=== PATIENT | female | born 1985 | race Caucasian/White ===

== ENCOUNTER 2016-08-21 21:10 | Emergency (ER) | payer OTHER ==
[2016-08-21] MEDS ORDERED: Nitrostat 0.4 MG (ED) SL ONE ×2 (21:35→21:47)
--- NOTE | 2016-08-21 21:44 | ERPHSYRPT ---
- History of Present Illness Time Seen by Provider: 08/21/16 21:35 Historian: patient Exam Limitations: no limitations Patient Subjective Stated Complaint: per pt "i started having cp about a hour ago. it is in the back of my neck and left shoulder. i am wearing a heart monitor for a-fib issues" Triage Nursing Assessment: aox3, breathing easy unlabored, skin pink warm dry, steady gait from cot to bed Physician History: The patient is a 31-year-old female brought in by ambulance from her home town complaining of a sudden onset of chest pain with heart palpitations and rapid heartbeat and with the chest pain radiating to her back left neck and left shoulder. She was short of breath. She became nauseated but did not vomit. She also became sweaty. 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 She is scheduled for a heart procedure tomorrow. EMS gave her 4 baby aspirins. Her chest pain is diminishing. She smokes. Timing/Duration: hour(s) (2) Activities at Onset: rest Quality: sharpness, other (fluttering) Location: substernal Chest Pain Radiation: jaw, neck, back Severity of Pain-Max: moderate Severity of Pain-Current: mild Associated Symptoms: nausea, shortness of breath, diaphoresis Prior Chest Pain/Cardiac Workup: cardiac cath Nitro Today/Relief: no nitro taken today Aspirin Treatment Today: 81 mg x 4, provided by EMS Allergies/Adverse Reactions: hydromorphone HCl [From Dilaudid] Allergy (Severe, Verified 08/21/16 21:24) azithromycin [From Zithromax] Allergy (Intermediate, Verified 08/21/16 21:24) erythromycin base [Erythromycin Base] Allergy (Mild, Verified 08/21/16 21:24) morphine Adverse Reaction (Verified 08/21/16 21:24) Home Medications: No Reportable Medications [No Reported Medications] 08/21/16 [History] Hx Tetanus, Diphtheria Vaccination/Date Given: Yes Hx Influenza Vaccination/Date Given: Yes Hx Pneumococcal Vaccination/Date Given: No - Review of Systems Constitutional: No Fever, No Chills Eyes: No Symptoms Ears, Nose, & Throat: No Symptoms Respiratory: Dyspnea, No Cough Cardiac: Chest Pain Abdominal/Gastrointestinal: No Abdominal Pain, No Nausea, No Vomiting, No Diarrhea Genitourinary Symptoms: No Dysuria Musculoskeletal: No Back Pain, No Neck Pain Skin: No Rash Neurological: No Dizziness, No Focal Weakness, No Sensory Changes Psychological: No Symptoms Endocrine: No Symptoms Hematologic/Lymphatic: No Symptoms Immunological/Allergic: No Symptoms All Other Systems: Reviewed and Negative - Past Medical History Pertinent Past Medical History: Yes Neurological History: Migraines ENT History: No Pertinent History Cardiac History: Other Respiratory History: Bronchitis Endocrine Medical History: No Pertinent History Musculoskeletal History: No Pertinent History GI Medical History: No Pertinent History History: Other Psycho-Social History: Anxiety, Depression, Panic Disorder Female Reproductive Disorders: Menstrual Problems Other Medical History: kidney stones; a-fib - Past Surgical History Past Surgical History: Yes Neuro Surgical History: No Pertinent History Cardiac: No Pertinent History Respiratory: No Pertinent History Gastrointestinal: Appendectomy Genitourinary: No Pertinent History Musculoskeletal: No Pertinent History Female Surgical History: Section, Tubal Ligation, Other Other Surgical History: D&C, states ultrasound and stress showed irreg. heartbeat and chest pain in past few months, hydrant setter unable to find irregular heartbeat. tubal 12/03/15 - Social History Smoking Status: Current every day smoker How long have you smoked: 12 Exposure to second hand smoke: Yes Drug Use: none Patient Lives Alone: No - Female History Hx Last Menstrual Period: 07/27/16 Hx Now: Yes - Nursing Vital Signs Temperature: 98.7 F Temperature Source: Oral Pulse Rate: 76 Respiratory Rate: 14 Pain Intensity: 7 - Physical Exam General Appearance: no apparent distress, alert Eye Exam: PERRL/EOMI, eyes nml inspection Ears, Nose, Throat Exam: normal ENT inspection, moist mucous membranes Neck Exam: normal inspection, non-tender, supple, full range of motion Respiratory Exam: normal breath sounds, lungs clear, No respiratory distress Cardiovascular Exam: regular rate/rhythm, normal heart sounds Gastrointestinal/Abdomen Exam: soft, No tenderness, No mass Pelvic Exam: not done Rectal Exam: not done Back Exam: normal inspection, No CVA tenderness, No vertebral tenderness Extremity Exam: normal inspection, normal range of motion Neurologic Exam: alert, oriented x 3, cooperative, normal mood/affect, sensation nml, No motor deficits Skin Exam: normal color, warm, dry SpO2 Interpretation: normal SpO2: 98 Oxygen Delivery: Room Air Ordered Tests: Active Orders 24 hr Category Date Time Status Furniture Salesperson STAT Care 08/21/16 21:35 Active EKG-ER Only STAT Care 08/21/16 21:35 Active IV Insertion STAT Care 08/21/16 21:35 Active Oxygen-ED Only NASAL CANNULA 2 lpm Care 08/21/16 21:35 Active Pulse Oximetry (ED) STAT Care 08/21/16 21:35 Active CHEST 2 VIEWS (PA AND LAT) Stat Exams 08/21/16 21:36 Taken CBC W DIFF Stat Lab 08/21/16 22:15 Completed CMP Stat Lab 08/21/16 22:15 Completed TROPONIN Q3H Lab 08/21/16 22:36 Completed TROPONIN Q3H Lab 08/22/16 00:45 Ordered TROPONIN Q3H Lab 08/22/16 03:45 Ordered TROPONIN Q3H Lab 08/22/16 06:45 Ordered TROPONIN Q3H Lab 08/22/16 09:45 Ordered Medication Summary Discontinued Medications Generic Name Dose Route Start Last Admin Trade Name Freq PRN Reason Stop Dose Admin Nitroglycerin 0.4 mg 08/21/16 21:35 08/21/16 21:49 Nitrostat 0.4 Mg (Ed) SL 08/21/16 21:36 0.4 mg STAT ONE Administration Nitroglycerin Confirm 08/21/16 21:47 Nitrostat 0.4 Mg (Ed) Administered 08/21/16 21:48 Dose 0.4 mg SL .STK-MED ONE Ondansetron HCl Confirm 08/21/16 22:15 Zofran 4 Mg/2 Ml Vial Administered 08/21/16 22:16 Dose 4 mg .ROUTE .STK-MED ONE Ondansetron HCl 4 mg 08/21/16 22:30 08/21/16 22:38 Zofran 4 Mg/2 Ml Vial IV 08/21/16 22:31 4 mg STAT ONE Administration Lab/Rad Data: Laboratory Result Diagrams 08/21/16 22:15 08/21/16 22:15 Laboratory Results 08/21/16 08/21/16 08/21/16 Range/Units 22:36 22:15 22:15 WBC 8.2 (4.0-10.5) K/mm3 RBC 4.48 (4.1-5.4) M/mm3 Hgb 11.9 L (12.0-16.0) gm/dl Hct 38.4 (35-47) % MCV 85.7 (78-100) fl MCH 26.5 (26-32) pg MCHC 31.0 L (32-36) g/dl RDW 15.1 H (11.5-14.0) % Plt Count 261 (150-450) K/mm3 MPV 10.0 H (6-9.5) fl Gran % 54.8 (36.0-66.0) % Lymphocytes % 38.4 (24.0-44.0) % Monocytes % 5.4 (0.0-12.0) % Eosinophils % 1.0 (0.00-5.0) % Basophils % 0.4 (0.0-0.4) % Basophils # 0.03 (0-0.4) Sodium 144 (136-145) mEq/L Potassium 3.8 (3.5-5.1) mEq/L Chloride 109 H (98-107) mEq/L Carbon Dioxide 23.5 (21-32) mEq/L Anion Gap 15.2 H (5-15) MEQ/L BUN 10 (9-20) mg/dL Creatinine 0.72 (0.55-1.30) mg/dl Estimated GFR > 60 ML/MIN Glucose 97 (70-110) MG/DL Calcium 8.5 (8.5-10.1) mg/dL Total Bilirubin 0.2 (0.2-1.0) mg/dL AST 17 (15-37) U/L ALT 26 (12-78) U/L Alkaline Phosphatase 70 (46-116) U/L Troponin I < 0.017 (0.000-0.056) ng/ml Serum Total Protein 7.2 (6.4-8.2) gm/dL Albumin 3.5 (3.4-5.0) g/dL - Progress Air Movement: good Blood Culture(s) Obtained: No Antibiotics given: No Discussed with : Other (Dr Nix accepts pt at [facility]) Counseled pt/family regarding: lab results, diagnosis - Departure Time of Disposition: 23:50 Departure Disposition: Transfer (Transfer to [facility] per DR Nix) Clinical Impression: Chest pain Condition: Stable Critical Care Time: No
[2016-08-21] MEDS ORDERED: Zofran 4 MG/2 ML VIAL ONE (22:15)
[2016-08-21 22:19] LABS: BASOPHIL % 0.4 % (0.0-0.4); Granulocytes % 54.8 % (36.0-66.0); Lymphocytes % 38.4 % (24.0-44.0); Mean Cell Volume 85.7 fl (78-100); Monocytes % 5.4 % (0.0-12.0); Platelet Count 261 K/mm3 (150-450); Red Blood Count 4.48 M/mm3 (4.1-5.4); Red Cell Distribution Width 15.1 % (11.5-14.0); White Blood Count 8.2 K/mm3 (4.0-10.5)
[2016-08-21] MEDS ORDERED: Zofran 4 MG/2 ML VIAL IV ONE (22:30)
[2016-08-21 22:41] LABS: ALBUMIN 3.5 g/dL (3.4-5.0); ALKALINE PHOSPHATASE 70 U/L (46-116); ANION GAP 15.2 MEQ/L (5-15); BILIRUBIN,TOTAL 0.2 mg/dL (0.2-1.0); BLOOD UREA NITROGEN 10 mg/dL (9-20); CHLORIDE 109 mEq/L (98-107); Carbon Dioxide 23.5 mEq/L (21-32); Glucose 97 MG/DL (70-110); Potassium 3.8 mEq/L (3.5-5.1); SGOT/AST 17 U/L (15-37); SGPT/ALT 26 U/L (12-78); SODIUM 144 mEq/L (136-145); Total Protein 7.2 gm/dL (6.4-8.2)
[2016-08-21 22:44] LABS: Mean Corpuscular Hemoglobin 26.5 pg (26-32)
[2016-08-22 00:33] VITALS: BP 129/77; PULSE 80; O2SAT 99
--- NOTE | 2016-08-22 08:40 | XRAY ---
Indication: Left-sided chest pain. Comparison: August 13, 2015. PA/lateral chest again demonstrates normal heart, lungs, and bony thorax with now electronic device overlying the cardiac silhouette.
== END 2016-08-22 00:48 | disposition left against medical advice (07) ==
LOC: ED 21:10
DX: R07.89 Other chest pain (principal); R00.2 Palpitations; R00.0 Tachycardia, unspecified; R06.02 Shortness of breath; R06.00 Dyspnea, unspecified
CPT/HCPCS: 36000; 36415; 71020; 80053; 84484; 85025; 93005; 93041; 96374; 99285; J2405; A9270-GY

== ENCOUNTER 2016-11-18 21:24 | Emergency (ER) | payer OTHER, SELFPAY ==
--- NOTE | 2016-11-18 22:15 | ERPHSYRPT ---
- History of Present Illness Time Seen by Provider: 11/18/16 22:07 Historian: patient Physician History: The patient is a 31-year-old female with a friend complaining of increasing right flank and right abdominal pain for 2 days. She has a history of kidney stones. She thinks this is another kidney stone. The pain has moved from the upper right flank down towards the lower abdomen over the past 2 days. She denies vomiting but she has nausea. Her past medical history is significant for kidney stones, appendectomy, and PID. Timing/Duration: day(s) (2) Activities at Onset: none Quality: sharpness, stabbing Abdominal Pain Onset Location: flank (right flank) Pain Radiation: RLQ, groin Severity of Pain-Max: severe Severity of Pain-Current: severe Modifying Factors: Improves With: nothing Associated Symptoms: nausea Previous symptoms: same symptoms as today Allergies/Adverse Reactions: hydromorphone HCl [From Dilaudid] Allergy (Severe, Verified 08/21/16 21:24) azithromycin [From Zithromax] Allergy (Intermediate, Verified 08/21/16 21:24) erythromycin base [Erythromycin Base] Allergy (Mild, Verified 08/21/16 21:24) morphine Adverse Reaction (Verified 08/21/16 21:24) Home Medications: No Reportable Medications [No Reported Medications] 08/21/16 [History] Hx Tetanus, Diphtheria Vaccination/Date Given: Yes Hx Influenza Vaccination/Date Given: Yes Hx Pneumococcal Vaccination/Date Given: No - Review of Systems Constitutional: No Fever, No Chills Eyes: No Symptoms Ears, Nose, & Throat: No Symptoms Respiratory: No Cough, No Dyspnea Cardiac: No Chest Pain, No Edema, No Syncope Abdominal/Gastrointestinal: Abdominal Pain, Nausea, No Vomiting, No Diarrhea Genitourinary Symptoms: No Dysuria Musculoskeletal: No Back Pain, No Neck Pain Skin: No Rash Neurological: No Dizziness, No Focal Weakness, No Sensory Changes Psychological: No Symptoms Endocrine: No Symptoms Hematologic/Lymphatic: No Symptoms Immunological/Allergic: No Symptoms All Other Systems: Reviewed and Negative - Past Medical History Pertinent Past Medical History: Yes Neurological History: Migraines ENT History: No Pertinent History Cardiac History: Other Respiratory History: Bronchitis Endocrine Medical History: No Pertinent History Musculoskeletal History: No Pertinent History GI Medical History: No Pertinent History History: Other Psycho-Social History: Anxiety, Depression, Panic Disorder Female Reproductive Disorders: Menstrual Problems Other Medical History: kidney stones; a-fib - Past Surgical History Past Surgical History: Yes Neuro Surgical History: No Pertinent History Cardiac: No Pertinent History Respiratory: No Pertinent History Gastrointestinal: Appendectomy Genitourinary: No Pertinent History Musculoskeletal: No Pertinent History Female Surgical History: Section, Tubal Ligation, Other Other Surgical History: D&C, states ultrasound and stress showed irreg. 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 tubal 12/03/15 - Social History Smoking Status: Current every day smoker How long have you smoked: 12 Exposure to second hand smoke: Yes Drug Use: none Patient Lives Alone: No - Female History Hx Now: Yes - Nursing Vital Signs Nursing Vital Signs: Initial Vital Signs Temperature 98.4 F Temperature Source Rectal Pulse Rate 67 Respiratory Rate 20 Blood Pressure [Right Arm] 119/57 Pain Intensity 7 - Physical Exam General Appearance: moderate distress Eye Exam: PERRL/EOMI, eyes nml inspection Ears, Nose, Throat Exam: normal ENT inspection, pharynx normal, moist mucous membranes Neck Exam: normal inspection, non-tender, supple, full range of motion Respiratory Exam: normal breath sounds, lungs clear, No respiratory distress Cardiovascular Exam: regular rate/rhythm, normal heart sounds Gastrointestinal/Abdomen Exam: soft, tenderness (right flank and right side), No mass Pelvic Exam: not done Rectal Exam: not done Back Exam: normal inspection, normal range of motion, No CVA tenderness, No vertebral tenderness Extremity Exam: normal inspection, normal range of motion, pelvis stable Neurologic Exam: alert, oriented x 3, cooperative, normal mood/affect, nml cerebellar function, sensation nml, No motor deficits Skin Exam: normal color, warm, dry SpO2 Interpretation: normal - CT Exams Abdomen/Pelvis CT Interpretation: Tele-radiologist Report, Other (No ureteral calculus, no hydronephrosis. No acute findings. per Dr Bennett.) Ordered Tests: Active Orders 24 hr Category Date Time Status Clean Catch Urine Specimen STAT Care 11/18/16 22:29 Active IV Insertion STAT Care 11/18/16 22:18 Active ABDOMEN AND PELVIS W/0 CONTRAS [CT] Stat Exams 11/18/16 22:18 Taken CBC W DIFF Stat Lab 11/18/16 22:15 Completed CMP Stat Lab 11/18/16 22:15 Completed HCG QUALITATIVE,SERUM Stat Lab 11/18/16 22:15 Completed UA W/RFX UR CULTURE Stat Lab 11/18/16 22:15 Completed Medication Summary Discontinued Medications Generic Name Dose Route Start Last Admin Trade Name Lata PRN Reason Stop Dose Admin Sodium Chloride 1,000 mls @ 999 mls/hr 11/18/16 22:18 11/18/16 22:25 Sodium Chloride 0.9% 1000 Ml IV 11/18/16 23:18 999 mls/hr .Q1H1M STA Administration Sodium Chloride Confirm 11/18/16 22:24 Sodium Chloride 0.9% 1000 Ml Administered 11/18/16 22:25 Dose 1,000 mls @ ud .ROUTE .STK-MED ONE Ketorolac Tromethamine 30 mg 11/18/16 22:18 11/18/16 22:25 Toradol 30 Mg Injection IV 11/18/16 22:19 30 mg STAT ONE Administration Ketorolac Tromethamine Confirm 11/18/16 22:24 Toradol 30 Mg Injection Administered 11/18/16 22:25 Dose 30 mg .ROUTE .STK-MED ONE Morphine Sulfate 4 mg 11/18/16 22:18 11/18/16 22:35 Morphine Sulfate 4 Mg Inj IV 11/18/16 22:19 Not Given STAT ONE Ondansetron HCl 4 mg 11/18/16 22:18 11/18/16 22:25 Zofran 4 Mg/2 Ml Vial IV 11/18/16 22:19 4 mg STAT ONE Administration Ondansetron HCl Confirm 11/18/16 22:24 Zofran 4 Mg/2 Ml Vial Administered 11/18/16 22:25 Dose 4 mg .ROUTE .STK-MED ONE Tamsulosin HCl 0.4 mg 11/18/16 22:20 11/18/16 22:25 Flomax 0.4 Mg PO 11/18/16 22:21 0.4 mg DAILY STA Administration Tamsulosin HCl Confirm 11/18/16 22:24 Flomax 0.4 Mg Administered 11/18/16 22:25 Dose 0.4 mg .ROUTE .STK-MED ONE Lab/Rad Data: Laboratory Result Diagrams 11/18/16 22:15 11/18/16 22:15 Laboratory Results 11/18/16 11/18/16 11/18/16 Range/Units 22:15 22:15 22:15 WBC 8.8 (4.0-10.5) K/mm3 RBC 4.49 (4.1-5.4) M/mm3 Hgb 12.4 (12.0-16.0) gm/dl Hct 38.4 (35-47) % MCV 85.5 (78-100) fl MCH 27.6 (26-32) pg MCHC 32.3 (32-36) g/dl RDW 15.0 H (11.5-14.0) % Plt Count 277 (150-450) K/mm3 MPV 10.4 H (6-9.5) fl Gran % 59.4 (36.0-66.0) % Lymphocytes % 34.2 (24.0-44.0) % Monocytes % 4.9 (0.0-12.0) % Eosinophils % 1.3 (0.00-5.0) % Basophils % 0.2 (0.0-0.4) % Basophils # 0.02 (0-0.4) Sodium 143 (136-145) mEq/L Potassium 3.5 (3.5-5.1) mEq/L Chloride 108 H (98-107) mEq/L Carbon Dioxide 22.3 (21-32) mEq/L Anion Gap 16.4 H (5-15) MEQ/L BUN 11 (9-20) mg/dL Creatinine 0.86 (0.55-1.30) mg/dl Estimated GFR > 60 ML/MIN Glucose 102 (70-110) MG/DL Calcium 8.9 (8.5-10.1) mg/dL Total Bilirubin 0.20 (0.2-1.0) mg/dL AST 10 L (15-37) U/L ALT 12 (12-78) U/L Alkaline Phosphatase 65 (46-116) U/L Serum Total Protein 7.5 (6.4-8.2) gm/dL Albumin 3.7 (3.4-5.0) g/dL Serum , Qual NEGATIVE (Negative) Ur Collection Type Urine Color (YELLOW) Urine Appearance (CLEAR) Urine pH (5-6) Ur Specific [place] (1.005-1.025) Urine Protein (Negative) Urine Ketones (NEGATIVE) Urine Blood (0-5) Thang/ul Urine Nitrite (NEGATIVE) Urine Bilirubin (NEGATIVE) Urine Urobilinogen (0-1) mg/dL Ur Leukocyte Esterase (NEGATIVE) Urine Glucose (NEGATIVE) mg/dL Specimen Received 11/18/16 Range/Units 22:15 WBC (4.0-10.5) K/mm3 RBC (4.1-5.4) M/mm3 Hgb (12.0-16.0) gm/dl Hct (35-47) % MCV (78-100) fl MCH (26-32) pg MCHC (32-36) g/dl RDW (11.5-14.0) % Plt Count (150-450) K/mm3 MPV (6-9.5) fl Gran % (36.0-66.0) % Lymphocytes % (24.0-44.0) % Monocytes % (0.0-12.0) % Eosinophils % (0.00-5.0) % Basophils % (0.0-0.4) % Basophils # (0-0.4) Sodium (136-145) mEq/L Potassium (3.5-5.1) mEq/L Chloride (98-107) mEq/L Carbon Dioxide (21-32) mEq/L Anion Gap (5-15) MEQ/L BUN (9-20) mg/dL Creatinine (0.55-1.30) mg/dl Estimated GFR ML/MIN Glucose (70-110) MG/DL Calcium (8.5-10.1) mg/dL Total Bilirubin (0.2-1.0) mg/dL AST (15-37) U/L ALT (12-78) U/L Alkaline Phosphatase (46-116) U/L Serum Total Protein (6.4-8.2) gm/dL Albumin (3.4-5.0) g/dL Serum , Qual (Negative) Ur Collection Type CCMS Urine Color YELLOW (YELLOW) Urine Appearance SLIGHTLY CLOUDY (CLEAR) Urine pH 6.0 (5-6) Ur Specific [place] 1.020 (1.005-1.025) Urine Protein NEGATIVE (Negative) Urine Ketones NEGATIVE (NEGATIVE) Urine Blood NEGATIVE (0-5) Thang/ul Urine Nitrite NEGATIVE (NEGATIVE) Urine Bilirubin NEGATIVE (NEGATIVE) Urine Urobilinogen NORMAL (0-1) mg/dL Ur Leukocyte Esterase NEGATIVE (NEGATIVE) Urine Glucose NEGATIVE (NEGATIVE) mg/dL Specimen Received 11-18-16 2230 - Progress Progress: unchanged Progress Note: 11/18/16 23:53 The patient was offered morphine 4 mg by IV and the patient refused. Before I ordered the morphine I discussed with the patient giving her morphine. The patient stated that large amounts of morphine make her agitated. Therefore I only ordered 4 mg but she still refused. She was given Toradol 30 mg IV and Flomax 0.4 mg by mouth without any significant relief. The CT scan of the abdomen and pelvis did not show any acute findings. There was no right-sided hydronephrosis. There was no definite ureteral calculus. There is no appendix because it has been surgically removed. Counseled pt/family regarding: lab results, diagnosis, need for follow-up, rad results - Departure Time of Disposition: 23:54 Departure Disposition: Home Clinical Impression: Abdominal pain Condition: Stable Critical Care Time: No Additional Instructions: You have right-sided abdominal pain but the cause is not clear. Your laboratory results, urine results, and CT scan of the abdomen were all normal. Take Tylenol as needed for pain. Follow-up as needed.
[2016-11-18] MEDS ORDERED: MORPHINE SULFATE 4 MG INJ IV ONE (22:18)
[2016-11-18] MEDS ORDERED: TORAdol 30 mg Injection IV ONE (22:18)
[2016-11-18] MEDS ORDERED: Zofran 4 MG/2 ML VIAL IV ONE (22:18)
[2016-11-18] MEDS ORDERED: Sodium Chloride 0.9% 1000 ML 1,000 ML IV STA (22:18)
[2016-11-18] MEDS ORDERED: Flomax 0.4 MG PO STA (22:20)
[2016-11-18] MEDS ORDERED: Sodium Chloride 0.9% 1000 ML 1,000 ML ONE (22:24)
[2016-11-18] MEDS ORDERED: TORAdol 30 mg Injection ONE (22:24)
[2016-11-18] MEDS ORDERED: Flomax 0.4 MG ONE (22:24)
[2016-11-18] MEDS ORDERED: Zofran 4 MG/2 ML VIAL ONE (22:24)
[2016-11-18 22:27] LABS: BASOPHIL % 0.2 % (0.0-0.4); Eosinophil % 1.3 % (0.00-5.0); Granulocytes % 59.4 % (36.0-66.0); Lymphocytes % 34.2 % (24.0-44.0); Mean Cell Volume 85.5 fl (78-100); Mean Corpuscular Hemoglobin 27.6 pg (26-32); Mean Platelet Volume 10.4 fl (6-9.5); Monocytes % 4.9 % (0.0-12.0); Platelet Count 277 K/mm3 (150-450); Red Blood Count 4.49 M/mm3 (4.1-5.4); White Blood Count 8.8 K/mm3 (4.0-10.5)
[2016-11-18 22:30] LABS: Collection Type CCMS
[2016-11-18 22:31] LABS: ADD URINE CULTURE? NO (NO); Bilirubin NEGATIVE (NEGATIVE); Blood NEGATIVE Ery/ul (0-5); COMPLETE URINE MICROSCOPIC? NO; Glucose NEGATIVE (NEGATIVE); Leukocyte Esterase NEGATIVE (NEGATIVE)
[2016-11-18 22:46] LABS: ALBUMIN 3.7 g/dL (3.4-5.0); ALKALINE PHOSPHATASE 65 U/L (46-116); ANION GAP 16.4 MEQ/L (5-15); BLOOD UREA NITROGEN 11 mg/dL (9-20); CHLORIDE 108 mEq/L (98-107); Carbon Dioxide 22.3 mEq/L (21-32); Glucose 102 MG/DL (70-110); Potassium 3.5 mEq/L (3.5-5.1); SGOT/AST 10 U/L (15-37); SGPT/ALT 12 U/L (12-78); SODIUM 143 mEq/L (136-145); Total Protein 7.5 gm/dL (6.4-8.2)
[2016-11-19 00:09] VITALS: BP 122/78; PULSE 80; O2SAT 99
--- NOTE | 2016-11-19 08:06 | XRAY ---
Indication: Right flank pain. History of renal calculi. Multiple contiguous axial images obtained through the abdomen and pelvis without contrast as ordered. Comparison: November 26, 2015. Lung bases demonstrate minimal bibasilar dependent atelectasis. Heart is not enlarged. Stomach is distended with food. Noncontrasted stomach and bowel loops appear nonobstructed. Mild diffuse scattered colonic fecal debris throughout.. Mild sigmoid diverticulosis without diverticulitis. Previous appendectomy. No free fluid/air. Spleen remains enlarged today measuring 13.1 m in greatest axial dimension. Gallbladder contracted without gallstones. Stable tiny calcified uterine fibroids. Stable hepatic calcified granuloma. Remaining liver, gallbladder, pancreas, spleen, adrenal glands, kidneys, ureters, bladder, uterus, and aorta appear unremarkable. Osseous structures intact again with lumbosacral junction degenerative disc disease. Impression: 1. Fecal stasis without obstruction and sigmoid diverticulosis. 2. Again splenomegaly with stable calcified uterine fibroids. 3. No acute intra-abdominal/pelvic abnormalities on this noncontrast exam. Comment: Preliminary interpretation was made by [facility]. No discrepancy. CTDI 18.03
== END 2016-11-19 00:10 | disposition home or self-care (01) ==
LOC: ED 21:24
DX: R10.9 Unspecified abdominal pain (principal); R11.0 Nausea; Z87.442 Personal history of urinary calculi
CPT/HCPCS: 36000; 36415; 74176; 80053; 81002; 84703; 85025; 96360; 96374; 96375; 99284; J1885; J2405; A9270-GY

== ENCOUNTER 2016-12-20 20:35 | Emergency (ER) | payer OTHER, SELFPAY ==
[2016-12-20] MEDS ORDERED: ATARAX 25 MG PO ONE (20:50)
[2016-12-20] MEDS ORDERED: PROVENTIL 2.5 MG/3 ML NEB IH ONE ×2 (20:50→20:58)
[2016-12-20] MEDS ORDERED: Vibramycin 100 MG PO ONE (20:51)
[2016-12-20] MEDS ORDERED: Vibramycin 100 MG ONE (20:56)
[2016-12-20] MEDS ORDERED: ATARAX 25 MG ONE (20:56)
--- NOTE | 2016-12-20 20:56 | ERPHSYRPT ---
- History of Present Illness Time Seen by Provider: 12/20/16 20:45 Source: patient, family Patient Subjective Stated Complaint: states she had cough and cengestion x1 month has not been to see doctor because her kids are sick too. worried she has bronchitis Triage Nursing Assessment: pt alert and oreintedx3, coughign continuously dry cough, lungs sounds clear, pulses equal bilateral radius, pt skin dry and intact , gait is steady , able to ambulate well. Physician History: CC: cough Hx: 31 y/o patient of TINA Sharma. She is a havy smoker of 3 ppd. Cough for one month. Had BTL. No fever or chills. She feels like the cough is worse and not better with no relief with cough syrup. Severity of Dyspnea-Max: moderate Severity of Dyspnea-Current: moderate Allergies/Adverse Reactions: hydromorphone HCl [From Dilaudid] Allergy (Severe, Verified 08/21/16 21:24) azithromycin [From Zithromax] Allergy (Intermediate, Verified 08/21/16 21:24) erythromycin base [Erythromycin Base] Allergy (Mild, Verified 08/21/16 21:24) morphine Adverse Reaction (Verified 08/21/16 21:24) Hx Tetanus, Diphtheria Vaccination/Date Given: Yes Hx Influenza Vaccination/Date Given: No Hx Pneumococcal Vaccination/Date Given: No Immunizations Up to Date: Yes - Review of Systems Constitutional: Malaise, No Fever, No Chills Eyes: No Symptoms Ears, Nose, & Throat: No Symptoms Respiratory: Cough Abdominal/Gastrointestinal: No Vomiting Skin: No Rash Neurological: No Headache All Other Systems: Reviewed and Negative - Past Medical History Pertinent Past Medical History: Yes Neurological History: Migraines ENT History: No Pertinent History Cardiac History: Other Respiratory History: Bronchitis Endocrine Medical History: No Pertinent History Musculoskeletal History: No Pertinent History GI Medical History: No Pertinent History History: Other Psycho-Social History: Anxiety, Depression, Panic Disorder Female Reproductive Disorders: Menstrual Problems Other Medical History: kidney stones; a-fib - Past Surgical History Past Surgical History: Yes Neuro Surgical History: No Pertinent History Cardiac: No Pertinent History Respiratory: No Pertinent History Gastrointestinal: Appendectomy Genitourinary: No Pertinent History Musculoskeletal: No Pertinent History Female Surgical History: Section, Tubal Ligation, Other Other Surgical History: D&C, states ultrasound and stress showed irreg. 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 tubal 12/03/15 - Social History Smoking Status: Current every day smoker How long have you smoked: 12 Exposure to second hand smoke: Yes Drug Use: none Patient Lives Alone: No - Female History Hx Now: Yes - Nursing Vital Signs Nursing Vital Signs: Initial Vital Signs Temperature 97.2 F 12/20/16 20:36 Pulse Rate 86 12/20/16 20:36 Respiratory Rate 18 12/20/16 20:36 Blood Pressure 131/86 12/20/16 20:36 O2 Sat by Pulse Oximetry 97 12/20/16 20:36 Pain Scale Pain Intensity 6 - Physical Exam General Appearance: alert Eye Exam: PERRL/EOMI Neck Exam: normal inspection, non-tender, supple Respiratory Exam: normal breath sounds, lungs clear, No respiratory distress Cardiovascular/Chest Exam: regular rate/rhythm Abdominal/Gastrointestinal Exam: soft, No tenderness, No distention Extremity Exam: non-tender Neurologic Exam: alert, oriented x 3, cooperative, sensation nml, No motor deficits Skin Exam: warm, dry, No rash SpO2 Interpretation: normal SpO2: 97 Oxygen Delivery: Room Air - Course Nursing assessment & vital signs reviewed: Yes Ordered Tests: Active Orders 24 hr Category Date Time Status Respiratory Nebulizer STAT RT 12/20/16 20:50 Active - Progress Progress Note: 12/20/16 20:53 Advised smoking cessation. Bronchitis Rx with albute[facility] POORNIMA and [facility]. Advised follow up with TINA Sharma. Counseled pt/family regarding: diagnosis, need for follow-up - Departure Time of Disposition: 20:54 Departure Disposition: Home Clinical Impression: Acute bronchitis, Smoker Condition: Stable Critical Care Time: No Referrals: ARNOLD SHARMA NP [Primary Care Provider] - Instructions: Cough -- Adult, Bronchitis Additional Instructions: UPPER RESPIRATORY INFECTIONS 1. The signs and symptoms of a cold may last up to 10 days. These illnesses are due to viruses which are not treatable with antibiotics. 2. The following suggestions can aid in recovery and to minimize symptoms: A. Increase fluid intake. B. Acetaminophen or Ibuprofen as directed. C. Avoid smoking environments as this will increase the risk of developing pneumonia. D. For children, may use a cool mist vaporizer in the child's room. 3. Contact your Family Physician if you note: A. Persisten fever >103 for more than 3 days B. Breathing difficulty C. Productive cough of yellow/green sputum D. Illness greater than 7 days E. Persistent vomiting F. Stiff neck Follow up with [facility] [place] Monday or Monday if not better. Rx albuterol MDI. Rx doxycycline. Try dark honey for cough. No driving tonite. You need to stop smoking. Prescriptions: Albuterol Sulfate [Albuterol Sulfate Hfa] 2 puff IH Q4-6HPRN PRN #1 [id number] PRN Reason: cough or wheeze Doxycycline Hyclate [Vibramycin] 1 cap PO BID #20 capsule
[2016-12-20 21:48] VITALS: BP 111/65; PULSE 102; O2SAT 98
== END 2016-12-20 21:54 | disposition home or self-care (01) ==
LOC: ED 20:35
DX: J20.9 Acute bronchitis, unspecified (principal); Z72.0 Tobacco use
CPT/HCPCS: 94640; 99283; A9270-GY

== ENCOUNTER 2016-12-27 20:06 | Emergency (ER) | payer OTHER, SELFPAY ==
[2016-12-27] MEDS ORDERED: Rocephin 1000 MG INJ IM ONE (20:23)
[2016-12-27] MEDS ORDERED: Robitussin AC Syrup Unit Dose Cup PO PRN (20:24)
[2016-12-27] MEDS ORDERED: XYLOCAINE 1% HCL 20 ML MDV ONE (20:27)
[2016-12-27] MEDS ORDERED: Rocephin 1000 MG INJ ONE (20:27)
[2016-12-27] MEDS ORDERED: Robitussin AC Syrup Unit Dose Cup ONE (20:27)
--- NOTE | 2016-12-27 20:30 | ERPHSYRPT ---
- History of Present Illness Time Seen by Provider: 12/27/16 20:11 Source: patient Exam Limitations: no limitations Patient Subjective Stated Complaint: pt states she has been short of breath and dizzy. states she has been coughing up brown sputum and has had diarrhea and nausea since this morning. Triage Nursing Assessment: pt awake and alert. answers questions approp. pt ambulatory with steady gait noted. pt breathing heavily with occasional barking cough noted. lungs cta. pt reports chest pain worse with cough and deep breath. pt speaking in full sentences without difficulty. Physician History: FOR THE PAST MONTH PT HAS HAD DYSPNEA AND COUGH PRODUCTIVE OF BROWN PHLEGM; TODAY 102 DEGREE FEVER, NAUSEA, DIARRHEA AND LEFT EARACHE. Allergies/Adverse Reactions: hydromorphone HCl [From Dilaudid] Allergy (Severe, Verified 12/27/16 20:22) azithromycin [From Zithromax] Allergy (Intermediate, Verified 12/27/16 20:22) erythromycin base [Erythromycin Base] Allergy (Mild, Verified 12/27/16 20:22) morphine Adverse Reaction (Verified 12/27/16 20:22) Home Medications: Amoxicillin mg PO 12/27/16 [History] Hx Tetanus, Diphtheria Vaccination/Date Given: Yes Hx Influenza Vaccination/Date Given: No Hx Pneumococcal Vaccination/Date Given: No Immunizations Up to Date: Yes - Review of Systems Constitutional: Fever Ears, Nose, & Throat: Ear Pain Respiratory: Cough, Dyspnea Abdominal/Gastrointestinal: Nausea, Diarrhea All Other Systems: Reviewed and Negative - Past Medical History Pertinent Past Medical History: Yes Neurological History: Migraines ENT History: No Pertinent History Cardiac History: Other Respiratory History: Bronchitis Endocrine Medical History: No Pertinent History Musculoskeletal History: No Pertinent History GI Medical History: No Pertinent History History: Other Psycho-Social History: Anxiety, Depression, Panic Disorder Female Reproductive Disorders: Menstrual Problems Other Medical History: kidney stones; a-fib - Past Surgical History Past Surgical History: Yes Neuro Surgical History: No Pertinent History Cardiac: No Pertinent History Respiratory: No Pertinent History Gastrointestinal: Appendectomy Genitourinary: No Pertinent History Musculoskeletal: No Pertinent History Female Surgical History: Section, Tubal Ligation, Other Other Surgical History: D&C, states ultrasound and stress showed irreg. 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 tubal 12/03/15 - Social History Smoking Status: Current every day smoker How long have you smoked: 12 Exposure to second hand smoke: Yes Drug Use: none Patient Lives Alone: No - Female History Hx Last Menstrual Period: last month Hx Now: Yes - Nursing Vital Signs Nursing Vital Signs: Initial Vital Signs Temperature 97.3 F 12/27/16 20:11 Pulse Rate 114 H 12/27/16 20:11 Respiratory Rate 24 12/27/16 20:11 Blood Pressure 134/79 12/27/16 20:11 O2 Sat by Pulse Oximetry 98 12/27/16 20:11 Pain Scale Pain Intensity 6 - Physical Exam General Appearance: alert, anxiety Eye Exam: PERRL/EOMI Ears, Nose, Throat Exam: TMs normal, moist mucous membranes, pharyngeal erythema , other (NASAL TURBINATES ERYTHEMATOUS AND MILDLY EDEMATOUS) Neck Exam: normal inspection Respiratory Exam: other (BRONCHIAL B.S. ALL BLANCO) Cardiovascular Exam: normal heart sounds Gastrointestinal/Abdomen Exam: soft, normal bowel sounds Back Exam: normal range of motion Extremity Exam: normal inspection, No pedal edema Neurologic Exam: alert, cooperative, other (ANXIOUS) Skin Exam: warm, dry SpO2 Interpretation: normal SpO2: 98 Oxygen Delivery: Room Air - Course Nursing assessment & vital signs reviewed: Yes Ordered Tests: Medication Summary Generic Name Dose Route Start Last Admin Trade Name Freq PRN Reason Stop Dose Admin Guaifenesin/Codeine Phosphate 10 ml 12/27/16 20:24 Robitussin Ac Syrup Unit Dose Cup PO 01/26/17 20:23 Q4H PRN PRN COUGH Discontinued Medications Generic Name Dose Route Start Last Admin Trade Name Freq PRN Reason Stop Dose Admin Ceftriaxone Sodium 1,000 mg 12/27/16 20:23 Rocephin 1000 Mg Inj IM 12/27/16 20:24 STAT ONE - Departure Time of Disposition: 20:32 Departure Disposition: Home Clinical Impression: PHARYNGITIS, SINUSITIS, BRONCHITIS, ANXIETY Condition: Stable Critical Care Time: No Instructions: Pharyngitis/Tonsillopharyngitis -- Adult Additional Instructions: FOLLOW UP WITH PRIVATE DOCTOR TOMORROW. Prescriptions: Guaifenesin/Codeine Phosphate [Robitussin AC Syrup] 10 ml PO Q4H PRN PRN #120 ml PRN Reason: Cough Cefdinir [Omnicef] 250 mg PO BID #100 ml
[2016-12-27 20:43] VITALS: BP 130/72; PULSE 76; O2SAT 100
== END 2016-12-27 20:42 | disposition home or self-care (01) ==
LOC: ED 20:06
DX: J02.9 Acute pharyngitis, unspecified (principal); J32.9 Chronic sinusitis, unspecified; F41.9 Anxiety disorder, unspecified; J40 Bronchitis, not specified as acute or chronic
CPT/HCPCS: 96372; 99283; 99284; J0696; A9270-GY

== ENCOUNTER 2017-02-20 13:50 | Emergency (ER) | payer OTHER, SELFPAY ==
[2017-02-20] MEDS ORDERED: TORAdol 30 mg Injection IM ONE (14:10)
--- NOTE | 2017-02-20 14:10 | ERPHSYRPT ---
- History of Present Illness Time Seen by Provider: 02/20/17 14:04 Source: patient Exam Limitations: no limitations Patient Subjective Stated Complaint: pt fell in hole and twisted left foot and ankle, no other injury Triage Nursing Assessment: pt has pain to top of foot, foot warm to touch, pink strong pedal pulse Physician History: The patient is a 31-year-old female who complains of left foot pain as she was running after her child who was running towards the street. The patient stepped in a hole and felt a pop in her foot. Then she twisted her foot. This happened just prior to arrival. Her past medical history is significant for pelvic inflammatory disease, UTI, and headache. Method of Injury: fell, twisted Occurred: just prior to arrival Quality: constant, stabbing Severity of Pain-Max: moderate Severity of Pain-Current: moderate Lower Extremities Pain: foot: left Modifying Factors: Improves With: nothing Associated Symptoms: unable to bear weight Allergies/Adverse Reactions: hydromorphone HCl [From Dilaudid] Allergy (Severe, Verified 02/20/17 13:56) azithromycin [From Zithromax] Allergy (Intermediate, Verified 02/20/17 13:56) erythromycin base [Erythromycin Base] Allergy (Mild, Verified 02/20/17 13:56) morphine Adverse Reaction (Verified 02/20/17 13:56) Hx Tetanus, Diphtheria Vaccination/Date Given: Yes (7 years ago) Hx Influenza Vaccination/Date Given: Yes Hx Pneumococcal Vaccination/Date Given: No Immunizations Up to Date: Yes - Review of Systems Constitutional: No Fever, No Chills Eyes: No Symptoms Ears, Nose, & Throat: No Symptoms Respiratory: No Cough, No Dyspnea Cardiac: No Chest Pain, No Edema, No Syncope Abdominal/Gastrointestinal: No Abdominal Pain, No Nausea, No Vomiting, No Diarrhea Genitourinary Symptoms: No Dysuria Musculoskeletal: Fall, Injury, Joint Pain Skin: No Rash Neurological: No Dizziness, No Focal Weakness, No Sensory Changes Psychological: No Symptoms Endocrine: No Symptoms Hematologic/Lymphatic: No Symptoms Immunological/Allergic: No Symptoms All Other Systems: Reviewed and Negative - Past Medical History Pertinent Past Medical History: Yes Neurological History: Migraines ENT History: No Pertinent History Cardiac History: Other Respiratory History: Bronchitis Endocrine Medical History: No Pertinent History Musculoskeletal History: No Pertinent History GI Medical History: No Pertinent History History: Other Psycho-Social History: Anxiety, Depression, Panic Disorder Female Reproductive Disorders: Menstrual Problems Other Medical History: kidney stones; a-fib - Past Surgical History Past Surgical History: Yes Neuro Surgical History: No Pertinent History Cardiac: No Pertinent History Respiratory: No Pertinent History Gastrointestinal: Appendectomy Genitourinary: No Pertinent History Musculoskeletal: No Pertinent History Female Surgical History: Section, Tubal Ligation, Other Other Surgical History: D&C, states ultrasound and stress showed irreg. 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 tubal 12/03/15 - Social History Smoking Status: Current every day smoker How long have you smoked: 12 Exposure to second hand smoke: Yes Drug Use: none Patient Lives Alone: No - Female History Hx Last Menstrual Period: jan Hx Now: Yes - Nursing Vital Signs Nursing Vital Signs: Initial Vital Signs Temperature 98.5 F 02/20/17 13:51 Pulse Rate 105 H 02/20/17 13:51 Respiratory Rate 24 02/20/17 13:51 Blood Pressure 126/41 02/20/17 13:51 O2 Sat by Pulse Oximetry 99 02/20/17 13:51 Pain Scale Pain Intensity 10 - Physical Exam General Appearance: mild distress Eyes, Ears, Nose, Throat Exam: moist mucous membranes Neck Exam: non-tender, supple Cardiovascular/Respiratory Exam: chest non-tender, normal breath sounds, regular rate/rhythm, no respiratory distress Gastrointestinal/Abdominal Exam: non-tender, guarding Back Exam: normal inspection, No vertebral tenderness Hips Exam: bilateral: non-tender, normal inspection Legs Exam: bilateral leg: non-tender, normal inspection Knees Exam: bilateral knee: non-tender, normal inspection Ankle Exam: right ankle: non-tender, normal inspection, left ankle: limited range of motion Foot Exam: right foot: non-tender, normal inspection, left foot: limited range of motion, pain, soft tissue tenderness Neuro/Tendon Exam: normal sensation, normal motor functions Mental 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, oriented x 3, cooperative Skin Exam: normal color, warm, dry SpO2 Interpretation: normal SpO2: 99 Oxygen Delivery: Room Air - Radiology Exams Left Ankle X-ray Interpretation: Negative (per Dr Jovel), No Fracture Left Foot X-ray Interpretation: Negative (Per Dr Jovel.), No Fracture Ordered Tests: Active Orders 24 hr Category Date Time Status ANKLE (3 VIEWS) Stat Exams 02/20/17 14:11 Completed FOOT (MINIMUM 3 VIEWS) Stat Exams 02/20/17 14:11 Completed Medication Summary Discontinued Medications Generic Name Dose Route Start Last Admin Trade Name Lata PRN Reason Stop Dose Admin Ketorolac Tromethamine 60 mg 02/20/17 14:10 02/20/17 14:14 Toradol 30 Mg Injection IM 02/20/17 14:11 60 mg STAT ONE Administration Ketorolac Tromethamine Confirm 02/20/17 14:13 Toradol 30 Mg Injection Administered 02/20/17 14:14 Dose 60 mg .ROUTE .STK-MED ONE - Progress Progress: improved Progress Note: 02/20/17 15:24 toradol 60 mg IM, improvement. Counseled pt/family regarding: rad results - Departure Time of Disposition: 15:25 Departure Disposition: Home Clinical Impression: Sprain of left foot Condition: Stable Critical Care Time: No Referrals: ARNOLD CAMARILLO NP [Primary Care Provider] - Additional Instructions: You have sprained your left foot. The x-rays did not show any broken bones. You were given Toradol 60 mg by IM in the ER. Use Riki wrap as needed. Apply ice 15 minutes 3 times a day for 3 days. Take naproxen 500 mg twice a day as needed. Follow-up as needed. Prescriptions: Naproxen 500 mg PO BID PRN #30 tablet.
[2017-02-20] MEDS ORDERED: TORAdol 30 mg Injection ONE (14:13)
--- NOTE | 2017-02-20 14:44 | XRAY ---
Indication: Pain following stepping injury. Comparison: None 3 nonweightbearing views of the left foot obtained. No bony, articular, or soft tissue abnormalities.
--- NOTE | 2017-02-20 14:49 | XRAY ---
Indication: Pain following stepping injury. Comparison: None 3 views of the left ankle obtained. No bony, articular, or soft tissue abnormalities.
[2017-02-20 15:35] VITALS: BP 100/76; PULSE 79; O2SAT 100
== END 2017-02-20 15:40 | disposition home or self-care (01) ==
LOC: ED 13:50
DX: S93.602A Unspecified sprain of left foot, initial encounter (principal); W17.2XXA Fall into hole, initial encounter; X50.0XXA Overexertion from strenuous movement or load, initial encounter
CPT/HCPCS: 73610; 73630; 96372; 99283; J1885

== ENCOUNTER 2017-03-21 19:34 | Emergency (ER) | payer OTHER, SELFPAY ==
[2017-03-21 20:04] VITALS: O2SAT 98
[2017-03-21] MEDS ORDERED: TYLENOL SUSPENSION 160 MG/5 ML PO ONE (20:26)
--- NOTE | 2017-03-21 20:26 | ERPHSYRPT ---
- History of Present Illness Time Seen by Provider: 03/21/17 20:05 Source: patient Exam Limitations: no limitations Patient Subjective Stated Complaint: started bleeding for the 3rd time this month with cramping.. drainage and pain from right nipple a milky green color starting this am. Triage Nursing Assessment: states has had vaginal bleeding today.. this is her 3 period this month. staes cramping lower abdomen. + BS x4 quad. denies fever. right nipple drainage since todfay she staes milky green whe she expresses. pain on palpation. Physician History: 31 y/o female with history of tubal ligation comes to the ER with complaints of vaginal bleeding three times this month. Pt states that she has been having regular periods in the beginning of the month but now for the past 3 weeks has been having vaginal bleeding for 4 days at a time. Pt says she also sees clots as well. Pt admits to lower abdominal cramping, 02/05, intermittent and pt has not taken any pain meds. Pt denies any fever, chills, nausea, vomiting, vaginal discharge or urinary symptoms. Timing/Duration: week(s) Activites at Onset: none Quality: cramping Onset Location: suprapubic Pain Radiation: none Severity of Pain-Max: severe Severity of Pain-Current: severe Sexual intercourse history: not active Modifying Factors: Improves With: nothing Associated Symptoms: denies symptoms Allergies/Adverse Reactions: hydromorphone HCl [From Dilaudid] Allergy (Severe, Verified 02/20/17 13:56) azithromycin [From Zithromax] Allergy (Intermediate, Verified 02/20/17 13:56) erythromycin base [Erythromycin Base] Allergy (Mild, Verified 02/20/17 13:56) morphine Adverse Reaction (Verified 02/20/17 13:56) Hx Tetanus, Diphtheria Vaccination/Date Given: Yes (7 years ago) Hx Influenza Vaccination/Date Given: No Hx Pneumococcal Vaccination/Date Given: No - Review of Systems Constitutional: No Fever, No Chills Eyes: No Symptoms Ears, Nose, & Throat: No Symptoms Respiratory: No Cough, No Dyspnea Cardiac: No Chest Pain, No Edema, No Syncope Abdominal/Gastrointestinal: Abdominal Pain, No Nausea, No Vomiting, No Diarrhea Genitourinary Symptoms: Vaginal Bleeding, No Dysuria, No Vaginal Discharge Musculoskeletal: No Back Pain, No Neck Pain Skin: No Rash Neurological: No Dizziness, No Focal Weakness, No Sensory Changes Psychological: No Symptoms Endocrine: No Symptoms All Other Systems: Reviewed and Negative - Past Medical History Pertinent Past Medical History: Yes Neurological History: Migraines ENT History: No Pertinent History Cardiac History: Other Respiratory History: Bronchitis Endocrine Medical History: No Pertinent History Musculoskeletal History: No Pertinent History GI Medical History: No Pertinent History History: Renal Disease Psycho-Social History: Anxiety, Depression, Panic Disorder Female Reproductive Disorders: Other Other Medical History: kidney stones; a-fib - Past Surgical History Past Surgical History: Yes Neuro Surgical History: No Pertinent History Cardiac: No Pertinent History Respiratory: No Pertinent History Gastrointestinal: Appendectomy Genitourinary: No Pertinent History Musculoskeletal: No Pertinent History Female Surgical History: Section Other Surgical History: D&C, states ultrasound and stress showed irreg. 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 tubal 12/03/15 - Social History Smoking Status: Current every day smoker How long have you smoked: 12 Exposure to second hand smoke: Yes Drug Use: none Patient Lives Alone: No - Female History Hx Last Menstrual Period: unsure due to irregular periods Hx Now: Yes - Nursing Vital Signs Nursing Vital Signs: Initial Vital Signs Temperature 97.8 F 03/21/17 19:49 Pulse Rate 90 03/21/17 19:49 Respiratory Rate 18 03/21/17 19:49 Blood Pressure 133/73 03/21/17 19:49 O2 Sat by Pulse Oximetry 98 03/21/17 19:49 Pain Scale Pain Intensity 7 - Physical Exam General Appearance: no apparent distress, alert Eye Exam: PERRL/EOMI, eyes nml inspection Ears, Nose, Throat Exam: normal ENT inspection, TMs normal, pharynx normal, moist mucous membranes Neck Exam: normal inspection, non-tender, supple, full range of motion Respiratory Exam: normal breath sounds, lungs clear, No respiratory distress Cardiovascular Exam: regular rate/rhythm, normal heart sounds, normal peripheral pulses Gastrointestinal/Abdomen Exam: soft, normal bowel sounds, tenderness, No mass Back Exam: normal inspection, normal range of motion, No CVA tenderness, No vertebral tenderness Extremity Exam: normal inspection, normal range of motion, pelvis stable Neurologic Exam: alert, oriented x 3, cooperative, 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, normal mood/affect, sensation nml, No motor deficits Skin Exam: normal color, warm, dry Lymphatic Exam: No adenopathy SpO2: 98 - Course Nursing assessment & vital signs reviewed: Yes Ordered Tests: Active Orders 24 hr Category Date Time Status IV Insertion STAT Care 03/21/17 20:18 Active PELVIS TRANS VAGINAL [US] Stat Exams 03/21/17 20:19 Taken CBC W DIFF Stat Lab 03/21/17 20:25 Completed CMP Stat Lab 03/21/17 20:25 Completed CULTURE,URINE Stat Lab 03/21/17 20:30 Received HCG QUALITATIVE,SERUM Stat Lab 03/21/17 20:25 Completed UA W/ MICROSCOPIC Stat Lab 03/21/17 20:30 Completed Medication Summary Discontinued Medications Generic Name Dose Route Start Last Admin Trade Name Lata PRN Reason Stop Dose Admin Acetaminophen 320 mg 03/21/17 20:26 03/21/17 20:35 Tylenol Suspension 160 Mg/5 Ml PO 03/21/17 20:27 320 mg STAT ONE Administration Acetaminophen Confirm 03/21/17 20:32 Tylenol Suspension 160 Mg/5 Ml Administered 03/21/17 20:33 Dose 160 mg .ROUTE .[place] Data-MED ONE Lab/Rad Data: Laboratory Result Diagrams 03/21/17 20:25 03/21/17 20:25 Laboratory Results 03/21/17 03/21/17 03/21/17 Range/Units 20:30 20:25 20:25 WBC (4.0-10.5) K/mm3 RBC (4.1-5.4) M/mm3 Hgb (12.0-16.0) gm/dl Hct (35-47) % MCV (78-100) fl MCH (26-32) pg MCHC (32-36) g/dl RDW (11.5-14.0) % Plt Count (150-450) K/mm3 MPV (6-9.5) fl Gran % (36.0-66.0) % Lymphocytes % (24.0-44.0) % Monocytes % (0.0-12.0) % Eosinophils % (0.00-5.0) % Basophils % (0.0-0.4) % Basophils # (0-0.4) Sodium (136-145) mEq/L Potassium (3.5-5.1) mEq/L Chloride (98-107) mEq/L Carbon Dioxide (21-32) mEq/L Anion Gap (5-15) MEQ/L BUN (9-20) mg/dL Creatinine (0.55-1.30) mg/dl Estimated GFR ML/MIN Glucose (70-110) MG/DL Calcium (8.5-10.1) mg/dL Total Bilirubin (0.2-1.0) mg/dL AST (15-37) U/L ALT (12-78) U/L Alkaline Phosphatase (46-116) U/L Serum Total Protein (6.4-8.2) gm/dL Albumin (3.4-5.0) g/dL Serum , Qual NEGATIVE (Negative) Ur Collection Type CLEAN CATCH Urine Color YELLOW (YELLOW) Urine Appearance CLEAR (CLEAR) Urine pH 6.0 (5-6) Ur Specific [place] 1.025 (1.005-1.025) Urine Protein NEGATIVE (Negative) Urine Ketones NEGATIVE (NEGATIVE) Urine Blood 250 (0-5) Thang/ul Urine Nitrite NEGATIVE (NEGATIVE) Urine Bilirubin NEGATIVE (NEGATIVE) Urine Urobilinogen 4 (0-1) mg/dL Ur Leukocyte Esterase NEGATIVE (NEGATIVE) Urine Microscopic RBC 25-50 (0-2) /HPF Urine Microscopic WBC 0-2 (0-5) /HPF Ur Epithelial Cells FEW (FEW) /HPF Urine Bacteria FEW (NEGATIVE) /HPF Urine Mucus SLIGHT (NEGATIVE) /HPF Urine Culture Reflexed YES (NO) Urine Glucose NEGATIVE (NEGATIVE) mg/dL Specimen Received 03/21/17 [facility] ABO Group A Rh Factor POSITIVE Antibody Screen NEGATIVE (NEGATIVE) 03/21/17 03/21/17 Range/Units 20:25 20:25 WBC 7.5 (4.0-10.5) K/mm3 RBC 4.56 (4.1-5.4) M/mm3 Hgb 12.2 (12.0-16.0) gm/dl Hct 39.0 (35-47) % MCV 85.5 (78-100) fl MCH 26.8 (26-32) pg MCHC 31.3 L (32-36) g/dl RDW 15.6 H (11.5-14.0) % Plt Count 267 (150-450) K/mm3 MPV 10.1 H (6-9.5) fl Gran % 47.4 (36.0-66.0) % Lymphocytes % 44.1 H (24.0-44.0) % Monocytes % 6.5 (0.0-12.0) % Eosinophils % 1.7 (0.00-5.0) % Basophils % 0.3 (0.0-0.4) % Basophils # 0.02 (0-0.4) Sodium 143 (136-145) mEq/L Potassium 3.6 (3.5-5.1) mEq/L Chloride 108 H (98-107) mEq/L Carbon Dioxide 22.7 (21-32) mEq/L Anion Gap 15.4 H (5-15) MEQ/L BUN 9 (9-20) mg/dL Creatinine 0.74 (0.55-1.30) mg/dl Estimated GFR > 60 ML/MIN Glucose 104 (70-110) MG/DL Calcium 9.1 (8.5-10.1) mg/dL Total Bilirubin 0.10 L (0.2-1.0) mg/dL AST 27 (15-37) U/L ALT 42 (12-78) U/L Alkaline Phosphatase 70 (46-116) U/L Serum Total Protein 7.2 (6.4-8.2) gm/dL Albumin 3.5 (3.4-5.0) g/dL Serum , Qual (Negative) Ur Collection Type Urine Color (YELLOW) Urine Appearance (CLEAR) Urine pH (5-6) Ur Specific [place] (1.005-1.025) Urine Protein (Negative) Urine Ketones (NEGATIVE) Urine Blood (0-5) Thang/ul Urine Nitrite (NEGATIVE) Urine Bilirubin (NEGATIVE) Urine Urobilinogen (0-1) mg/dL Ur Leukocyte Esterase (NEGATIVE) Urine Microscopic RBC (0-2) /HPF Urine Microscopic WBC (0-5) /HPF Ur Epithelial Cells (FEW) /HPF Urine Bacteria (NEGATIVE) /HPF Urine Mucus (NEGATIVE) /HPF Urine Culture Reflexed (NO) Urine Glucose (NEGATIVE) mg/dL Specimen Received ABO Group Rh Factor Antibody Screen (NEGATIVE) - Progress Progress: unchanged Progress Note: 03/21/17 21:34 The prelim transvaginal US does not show any acute findings. The labs are unremarkable. Pt tells me that for the last couple of days, she has been having a tender right breast with greenish discharge. I did a breast exam and was not able to express any nipple discharge or lump. I have advised the patient that she will need a mammogram with reproductive hormone testing by a [employer] doctor that she will get a referral to. - Departure Time of Disposition: 21:37 Departure Disposition: Home Clinical Impression: Vaginal bleeding, Nipple discharge Condition: Stable Critical Care Time: No Referrals: ARNOLD CAMARILLO NP [Primary Care Provider] - JOSE DOUGHERTY [NON-STAFF PHY W/O PRIVILEGES] - Instructions: Vaginal Bleeding, Breast Pain (Mastalgia) Additional Instructions: Call Dr Dougherty in the morning to set up an appointment for additional testing.
[2017-03-21] MEDS ORDERED: TYLENOL SUSPENSION 160 MG/5 ML ONE (20:32)
[2017-03-21 20:39] LABS: BASOPHIL % 0.3 % (0.0-0.4); Eosinophil % 1.7 % (0.00-5.0); Granulocytes % 47.4 % (36.0-66.0); Lymphocytes % 44.1 % (24.0-44.0); Mean Cell Volume 85.5 fl (78-100); Mean Corpuscular Hemoglobin 26.8 pg (26-32); Mean Platelet Volume 10.1 fl (6-9.5); Monocytes % 6.5 % (0.0-12.0); Platelet Count 267 K/mm3 (150-450); Red Blood Count 4.56 M/mm3 (4.1-5.4); Red Cell Distribution Width 15.6 % (11.5-14.0); White Blood Count 7.5 K/mm3 (4.0-10.5)
[2017-03-21 20:58] LABS: ALBUMIN 3.5 g/dL (3.4-5.0); ALKALINE PHOSPHATASE 70 U/L (46-116); ANION GAP 15.4 MEQ/L (5-15); BLOOD UREA NITROGEN 9 mg/dL (9-20); CHLORIDE 108 mEq/L (98-107); Carbon Dioxide 22.7 mEq/L (21-32); Glucose 104 MG/DL (70-110); Potassium 3.6 mEq/L (3.5-5.1); SGOT/AST 27 U/L (15-37); SGPT/ALT 42 U/L (12-78); SODIUM 143 mEq/L (136-145); Total Protein 7.2 gm/dL (6.4-8.2)
[2017-03-21 21:17] LABS: Collection Type CLEAN CATCH
[2017-03-21 21:18] LABS: Bilirubin NEGATIVE (NEGATIVE); Blood 250 Ery/ul (0-5); COMPLETE URINE MICROSCOPIC? YES; Glucose NEGATIVE (NEGATIVE); Leukocyte Esterase NEGATIVE (NEGATIVE)
[2017-03-21 21:19] LABS: ADD URINE CULTURE? YES (NO); Bacteria FEW /HPF (NEGATIVE); Epithelial Cells FEW /HPF (FEW); Mucus SLIGHT /HPF (NEGATIVE); WBC 0-2 /HPF (0-5)
[2017-03-21 21:45] VITALS: BP 112/69; PULSE 69
--- NOTE | 2017-03-22 13:26 | XRAY ---
Exam: Transvaginal pelvic ultrasound examination from 03/21/2017. Comparison: CT of the abdomen and pelvis without IV contrast from 11/18/2016. Indication: Vaginal bleeding. Technique: Longitudinal and transverse transvaginal images were obtained of the pelvis. Findings: The uterus measures 9.9 cm in length, 4.0 cm in AP depth, and 4.6 cm in width. It is retroflexed. A small 5 mm x 6 mm calcification is seen at the superior margin of the uterine fundus representing no change from the CT of the abdomen/pelvis from 11/18/2016. No definite uterine myometrial soft tissue masses are seen. AP dimension of the endometrium in the midline measures 0.9 cm. A 6-7 mm nabothian cyst is seen along the left aspect of the cervical canal. The right ovary measures 2.4 cm x 1.3 cm x 2.4 cm, and the left ovary measures 2.1 cm x 1.5 cm x 1.7 cm. Normal color flow and Doppler arterial signal is seen within each ovary. A 1.5 cm x 0.9 cm follicle is seen within the left ovary. There is no significant free fluid within the cul-de-sac. Impression: 1. Unremarkable retroflexed uterus containing no gestational sac, abnormal endometrial thickening, endometrial fluid, or abnormal soft tissue myometrial mass. I do identify a 5 mm x 6 mm calcification abutting the uterine fundus which is unchanged from the CT examination from 11/18/2016. This is a presumed tiny calcified fibroid. Other tiny calcification at the anterior margin of the uterine fundus on the CT scan is not seen by today's ultrasound study. 2. Both ovaries are well identified and are remarkable only for a follicle measuring 1.5 cm in greatest diameter within the left ovary. There is no evidence of ovarian torsion. 3. No pathological free fluid is seen within the cul-de-sac.
== END 2017-03-21 22:00 | disposition home or self-care (01) ==
LOC: ED 19:34
DX: N93.9 Abnormal uterine and vaginal bleeding, unspecified (principal); N64.52 Nipple discharge
CPT/HCPCS: 36000; 36415; 76830; 80053; 81000; 84703; 85025; 86850; 86900; 86901; 87086; 99283; A9270-GY

== ENCOUNTER 2017-06-30 22:17 | Emergency (ER) | payer OTHER ==
[2017-06-30 22:35] VITALS: O2SAT 97
[2017-06-30] MEDS ORDERED: Sodium Chloride 0.9% 1000 ML 1,000 ML IV STA (22:38)
[2017-06-30] MEDS ORDERED: Zofran 4 MG/2 ML VIAL IV ONE (22:38)
--- NOTE | 2017-06-30 22:45 | ERPHSYRPT ---
- History of Present Illness Time Seen by Provider: 06/30/17 22:35 Historian: patient Exam Limitations: no limitations Patient Subjective Stated Complaint: began this am 0730 with fever tmax 102.8, vomiting and diarrhea Triage Nursing Assessment: vomiting x 4-5 episodes today and diarrhea > 10x, fever at home Physician History: SINCE THIS AM PT HAS HAD NAUSEA, VOMITING X6, DIARRHEA X 10 WITHOUT BLOOD AND FEVER UP TO 101.9 DEGREES. PT DENIES CHEST PAIN, SHORTNESS OF AIR, RASH. Allergies/Adverse Reactions: hydromorphone HCl [From Dilaudid] Allergy (Severe, Verified 02/20/17 13:56) azithromycin [From Zithromax] Allergy (Intermediate, Verified 02/20/17 13:56) erythromycin base [Erythromycin Base] Allergy (Mild, Verified 02/20/17 13:56) morphine Adverse Reaction (Verified 02/20/17 13:56) Hx Tetanus, Diphtheria Vaccination/Date Given: Yes Hx Influenza Vaccination/Date Given: No Hx Pneumococcal Vaccination/Date Given: No Immunizations Up to Date: Yes - Review of Systems Constitutional: Fever Respiratory: No Dyspnea Cardiac: No Chest Pain Abdominal/Gastrointestinal: Nausea, Vomiting, Diarrhea Skin: No Rash All Other Systems: Reviewed and Negative - Past Medical History Pertinent Past Medical History: Yes Neurological History: Migraines ENT History: No Pertinent History Cardiac History: Arrhythmia, Other Respiratory History: Bronchitis Endocrine Medical History: No Pertinent History Musculoskeletal History: No Pertinent History GI Medical History: No Pertinent History History: Renal Disease Psycho-Social History: Anxiety, Depression, Panic Disorder Female Reproductive Disorders: Other Other Medical History: kidney stones; a-fib - Past Surgical History Past Surgical History: Yes Neuro Surgical History: No Pertinent History Cardiac: No Pertinent History Respiratory: No Pertinent History Gastrointestinal: Appendectomy Genitourinary: No Pertinent History Musculoskeletal: No Pertinent History Female Surgical History: Section, Tubal Ligation Other Surgical History: D&C, states ultrasound and stress showed irreg. 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 tubal 12/03/15 - Social History Smoking Status: Current every day smoker How long have you smoked: 12 Exposure to second hand smoke: Yes Drug Use: none Patient Lives Alone: No - Female History Hx Last Menstrual Period: 06/30/2017 Hx Now: No - Nursing Vital Signs Nursing Vital Signs: Initial Vital Signs Temperature 97.6 F 06/30/17 22:31 Pulse Rate 86 06/30/17 22:31 Respiratory Rate 20 06/30/17 22:31 Blood Pressure 134/81 06/30/17 22:31 O2 Sat by Pulse Oximetry 97 06/30/17 22:31 Pain Scale Pain Intensity 3 - Physical Exam General Appearance: alert Eye Exam: PERRL/EOMI Ears, Nose, Throat Exam: TMs normal, moist mucous membranes, pharyngeal erythema Neck Exam: normal inspection Respiratory Exam: lungs clear Cardiovascular Exam: normal heart sounds Gastrointestinal/Abdomen Exam: soft, other (B.S. MILDLY HYPERACTIVE AND NORMOTONIC.), No tenderness Back Exam: normal range of motion Extremity Exam: normal inspection, No pedal edema Neurologic Exam: alert, cooperative SpO2 Interpretation: normal SpO2: 97 Oxygen Delivery: Room Air - Course Nursing assessment & vital signs reviewed: Yes Ordered Tests: Active Orders 24 hr Category Date Time Status IV Insertion STAT Care 06/30/17 22:38 Active AMYLASE Stat Lab 06/30/17 22:45 Completed CBC W DIFF Stat Lab 06/30/17 22:45 Completed CMP Stat Lab 06/30/17 22:45 Completed CULTURE, THROAT Stat Lab 06/30/17 22:45 Received HCG QUALITATIVE,SERUM Stat Lab 06/30/17 22:45 Completed LIPASE Stat Lab 06/30/17 22:45 Completed MAG [MAGNESIUM] Stat Lab 06/30/17 22:45 Completed [place] Screen Stat Lab 06/30/17 22:45 Completed STREP SCREEN-BETA A Stat Lab 06/30/17 22:45 Completed UA W/ MICROSCOPIC Stat Lab 06/30/17 22:45 Completed Medication Summary Discontinued Medications Generic Name Dose Route Start Last Admin Trade Name Freq PRN Reason Stop Dose Admin Sodium Chloride 1,000 mls @ 999 mls/hr 06/30/17 22:38 06/30/17 22:52 Sodium Chloride 0.9% 1000 Ml IV 06/30/17 23:38 999 mls/hr .Q1H1M STA Administration Sodium Chloride Confirm 06/30/17 22:47 Sodium Chloride 0.9% 1000 Ml Administered 06/30/17 22:48 Dose 1,000 mls @ ud .ROUTE .STK-MED ONE Ondansetron HCl 4 mg 06/30/17 22:38 06/30/17 22:52 Zofran 4 Mg/2 Ml Vial IV 06/30/17 22:39 4 mg STAT ONE Administration Ondansetron HCl Confirm 06/30/17 22:47 Zofran 4 Mg/2 Ml Vial Administered 06/30/17 22:48 Dose 4 mg .ROUTE .STK-MED ONE Lab/Rad Data: Laboratory Result Diagrams 06/30/17 22:45 06/30/17 22:45 Laboratory Results 06/30/17 06/30/17 06/30/17 Range/Units 22:45 22:45 22:45 WBC (4.0-10.5) K/mm3 RBC (4.1-5.4) M/mm3 Hgb (12.0-16.0) gm/dl Hct (35-47) % MCV (78-100) fl MCH (26-32) pg MCHC (32-36) g/dl RDW (11.5-14.0) % Plt Count (150-450) K/mm3 MPV (6-9.5) fl Gran % (36.0-66.0) % Lymphocytes % (24.0-44.0) % Monocytes % (0.0-12.0) % Eosinophils % (0.00-5.0) % Basophils % (0.0-0.4) % Basophils # (0-0.4) Sodium (136-145) mEq/L Potassium (3.5-5.1) mEq/L Chloride (98-107) mEq/L Carbon Dioxide (21-32) mEq/L Anion Gap (5-15) MEQ/L BUN (9-20) mg/dL Creatinine (0.55-1.30) mg/dl Estimated GFR ML/MIN Glucose (70-110) MG/DL Calcium (8.5-10.1) mg/dL Magnesium (1.8-2.4) mg/dL Total Bilirubin (0.2-1.0) mg/dL AST (15-37) U/L ALT (12-78) U/L Alkaline Phosphatase (46-116) U/L Serum Total Protein (6.4-8.2) gm/dL Albumin (3.4-5.0) g/dL Amylase (25-115) U/L Lipase (73-393) U/L Serum , Qual NEGATIVE (Negative) Ur Collection Type Urine Color (YELLOW) Urine Appearance (CLEAR) Urine pH (5-6) Ur Specific [place] (1.005-1.025) Urine Protein (Negative) Urine Ketones (NEGATIVE) Urine Blood (0-5) Thang/ul Urine Nitrite (NEGATIVE) Urine Bilirubin (NEGATIVE) Urine Urobilinogen (0-1) mg/dL Ur Leukocyte Esterase (NEGATIVE) Urine Microscopic RBC (0-2) /HPF Urine Microscopic WBC (0-5) /HPF Ur Epithelial Cells (FEW) /HPF Urine Bacteria (NEGATIVE) /HPF Urine Culture Reflexed (NO) Urine Glucose (NEGATIVE) mg/dL Monoscreen NEGATIVE (Negative) Influenza Type A Ag NEGATIVE (NEGATIVE) Influenza Type B Ag NEGATIVE (NEGATIVE) RSV (PCR) NEGATIVE (Negative) Streptococcus Screen NEGATIVE (Negative) Specimen Received 06/30/17 06/30/17 06/30/17 Range/Units 22:45 22:45 22:45 WBC (4.0-10.5) K/mm3 RBC (4.1-5.4) M/mm3 Hgb (12.0-16.0) gm/dl Hct (35-47) % MCV (78-100) fl MCH (26-32) pg MCHC (32-36) g/dl RDW (11.5-14.0) % Plt Count (150-450) K/mm3 MPV (6-9.5) fl Gran % (36.0-66.0) % Lymphocytes % (24.0-44.0) % Monocytes % (0.0-12.0) % Eosinophils % (0.00-5.0) % Basophils % (0.0-0.4) % Basophils # (0-0.4) Sodium 143 (136-145) mEq/L Potassium 3.5 (3.5-5.1) mEq/L Chloride 106 (98-107) mEq/L Carbon Dioxide 22.9 (21-32) mEq/L Anion Gap 17.3 H (5-15) MEQ/L BUN 12 (9-20) mg/dL Creatinine 0.79 (0.55-1.30) mg/dl Estimated GFR > 60 ML/MIN Glucose 97 (70-110) MG/DL Calcium 9.1 (8.5-10.1) mg/dL Magnesium 1.9 (1.8-2.4) mg/dL Total Bilirubin 0.10 L (0.2-1.0) mg/dL AST 14 L (15-37) U/L ALT 20 (12-78) U/L Alkaline Phosphatase 64 (46-116) U/L Serum Total Protein 7.7 (6.4-8.2) gm/dL Albumin 3.8 (3.4-5.0) g/dL Amylase 36 (25-115) U/L Lipase 214 (73-393) U/L Serum , Qual (Negative) Ur Collection Type CCMS Urine Color YELLOW (YELLOW) Urine Appearance CLEAR (CLEAR) Urine pH 6.0 (5-6) Ur Specific [place] 1.020 (1.005-1.025) Urine Protein NEGATIVE (Negative) Urine Ketones NEGATIVE (NEGATIVE) Urine Blood TRACE NON-HEM (0-5) Thang/ul Urine Nitrite NEGATIVE (NEGATIVE) Urine Bilirubin NEGATIVE (NEGATIVE) Urine Urobilinogen NORMAL (0-1) mg/dL Ur Leukocyte Esterase NEGATIVE (NEGATIVE) Urine Microscopic RBC 0-2 (0-2) /HPF Urine Microscopic WBC 0-2 (0-5) /HPF Ur Epithelial Cells FEW (FEW) /HPF Urine Bacteria RARE (NEGATIVE) /HPF Urine Culture Reflexed NO (NO) Urine Glucose NEGATIVE (NEGATIVE) mg/dL Monoscreen (Negative) Influenza Type A Ag (NEGATIVE) Influenza Type B Ag (NEGATIVE) RSV (PCR) (Negative) Streptococcus Screen (Negative) Specimen Received 06-30-17 [id number] 06/30/17 Range/Units 22:45 WBC 7.2 (4.0-10.5) K/mm3 RBC 4.50 (4.1-5.4) M/mm3 Hgb 12.2 (12.0-16.0) gm/dl Hct 38.8 (35-47) % MCV 86.2 (78-100) fl MCH 27.1 (26-32) pg MCHC 31.4 L (32-36) g/dl RDW 15.1 H (11.5-14.0) % Plt Count 267 (150-450) K/mm3 MPV 9.9 H (6-9.5) fl Gran % 48.4 (36.0-66.0) % Lymphocytes % 43.6 (24.0-44.0) % Monocytes % 7.1 (0.0-12.0) % Eosinophils % 0.8 (0.00-5.0) % Basophils % 0.1 (0.0-0.4) % Basophils # 0.01 (0-0.4) Sodium (136-145) mEq/L Potassium (3.5-5.1) mEq/L Chloride (98-107) mEq/L Carbon Dioxide (21-32) mEq/L Anion Gap (5-15) MEQ/L BUN (9-20) mg/dL Creatinine (0.55-1.30) mg/dl Estimated GFR ML/MIN Glucose (70-110) MG/DL Calcium (8.5-10.1) mg/dL Magnesium (1.8-2.4) mg/dL Total Bilirubin (0.2-1.0) mg/dL AST (15-37) U/L ALT (12-78) U/L Alkaline Phosphatase (46-116) U/L Serum Total Protein (6.4-8.2) gm/dL Albumin (3.4-5.0) g/dL Amylase (25-115) U/L Lipase (73-393) U/L Serum , Qual (Negative) Ur Collection Type Urine Color (YELLOW) Urine Appearance (CLEAR) Urine pH (5-6) Ur Specific [place] (1.005-1.025) Urine Protein (Negative) Urine Ketones (NEGATIVE) Urine Blood (0-5) Thang/ul Urine Nitrite (NEGATIVE) Urine Bilirubin (NEGATIVE) Urine Urobilinogen (0-1) mg/dL Ur Leukocyte Esterase (NEGATIVE) Urine Microscopic RBC (0-2) /HPF Urine Microscopic WBC (0-5) /HPF Ur Epithelial Cells (FEW) /HPF Urine Bacteria (NEGATIVE) /HPF Urine Culture Reflexed (NO) Urine Glucose (NEGATIVE) mg/dL Monoscreen (Negative) Influenza Type A Ag (NEGATIVE) Influenza Type B Ag (NEGATIVE) RSV (PCR) (Negative) Streptococcus Screen (Negative) Specimen Received - Departure Time of Disposition: 00:31 Departure Disposition: Home Clinical Impression: PHARYNGITIS, VOMITING, DIARRHEA Condition: Stable Critical Care Time: No Referrals: ARNOLD CAMARILLO NP [Primary Care Provider] - Instructions: Vomiting -- Adult, Diarrhea and Traveler's Diarrhea -- Adult Additional Instructions: FOLLOW UP WITH PRIVATE DOCTOR TOMORROW. Prescriptions: Ondansetron ODT 4 MG [Zofran Odt 4 mg] 4 mg PO Q6H PRN PRN #14 tab.rapdis PRN Reason: Nausea/Vomiting Cephalexin Monohydrate [Keflex] 500 mg PO TID #20 capsule
[2017-06-30] MEDS ORDERED: Sodium Chloride 0.9% 1000 ML 1,000 ML ONE (22:47)
[2017-06-30] MEDS ORDERED: Zofran 4 MG/2 ML VIAL ONE (22:47)
[2017-06-30 23:02] LABS: BASOPHIL % 0.1 % (0.0-0.4); Basophil (Absolute #) 0.01 (0-0.4); Eosinophil % 0.8 % (0.00-5.0); Eosinophil (Absolute #) 0.06 (0-0.5); Granulocyte Absolute (ANC) 3.47 (1.4-6.9); Granulocytes % 48.4 % (36.0-66.0); Hematocrit 38.8 % (35-47); Hemoglobin 12.2 gm/dl (12.0-16.0); Lymphocyte (Absolute #) 3.13 (1.0-4.6); Lymphocytes % 43.6 % (24.0-44.0); Mean Cell Volume 86.2 fl (78-100); Mean Corpuscular Hemoglobin 27.1 pg (26-32); Mean Corpuscular Hgb Concent. 31.4 g/dl (32-36); Mean Platelet Volume 9.9 fl (6-9.5); Monocyte (Absolute #) 0.51 (0.0-1.3); Monocytes % 7.1 % (0.0-12.0); Platelet Count 267 K/mm3 (150-450); Red Cell Distribution Width 15.1 % (11.5-14.0); White Blood Count 7.2 K/mm3 (4.0-10.5)
[2017-06-30 23:21] LABS: HCG QUALITATIVE,SERUM NEGATIVE (Negative); Mono Screen NEGATIVE (Negative)
[2017-06-30 23:28] LABS: Appearance CLEAR (CLEAR); Bilirubin NEGATIVE (NEGATIVE); Blood TRACE NON-HEM Ery/ul (0-5); Glucose NEGATIVE (NEGATIVE); Ketones NEGATIVE (NEGATIVE); Leukocyte Esterase NEGATIVE (NEGATIVE); Nitrite NEGATIVE (NEGATIVE); Protein,Urine Dip NEGATIVE (Negative); Urobilinogen NORMAL mg/dL (0-1)
[2017-06-30 23:29] LABS: Bacteria RARE /HPF (NEGATIVE); Epithelial Cells FEW /HPF (FEW); WBC 0-2 /HPF (0-5)
[2017-06-30 23:35] LABS: ALBUMIN 3.8 g/dL (3.4-5.0); ALKALINE PHOSPHATASE 64 U/L (46-116); AMYLASE 36 U/L (25-115); ANION GAP 17.3 MEQ/L (5-15); BLOOD UREA NITROGEN 12 mg/dL (9-20); CHLORIDE 106 mEq/L (98-107); Calcium 9.1 mg/dL (8.5-10.1); Carbon Dioxide 22.9 mEq/L (21-32); Creatinine 1 0.79 mg/dl (0.55-1.30); EST GLOMERULAR FILTRATION RATE > 60 ML/MIN; Glucose 97 MG/DL (70-110); LIPASE 214 U/L (73-393); Potassium 3.5 mEq/L (3.5-5.1); SGOT/AST 14 U/L (15-37); SGPT/ALT 20 U/L (12-78); SODIUM 143 mEq/L (136-145); Total Protein 7.7 gm/dL (6.4-8.2)
[2017-07-01 00:06] LABS: INFLUENZA A NEGATIVE (NEGATIVE); INFLUENZA B NEGATIVE (NEGATIVE); RESPIRATORY SYNCTIAL VIRUS NEGATIVE (Negative)
[2017-07-01 00:25] VITALS: BP 134/82; PULSE 88
[2017-07-01] MEDS ORDERED: KEFLEX 500 MG PO ONE (00:31)
[2017-07-01] MEDS ORDERED: KEFLEX 500 MG ONE (00:33)
== END 2017-07-01 01:26 | disposition home or self-care (01) ==
LOC: ED 22:17
DX: J02.9 Acute pharyngitis, unspecified (principal); R11.2 Nausea with vomiting, unspecified; R19.7 Diarrhea, unspecified
CPT/HCPCS: 36000; 36415; 80053; 81000; 82150; 83690; 83735; 84703; 85025; 86308; 87070; 87430; 87631; 96360; 96374; 99284; J2405; A9270-GY

== ENCOUNTER 2017-08-08 11:38 | Emergency (ER) | payer OTHER ==
[2017-08-08] MEDS ORDERED: Sodium Chloride 0.9% 1000 ML 1,000 ML IV STA (12:25)
--- NOTE | 2017-08-08 12:25 | ERPHSYRPT ---
- History of Present Illness Time Seen by Provider: 08/08/17 12:22 Source: patient, family Exam Limitations: no limitations Patient Subjective Stated Complaint: pt to er co nausea, vomiting, diarrhea and fever since 030, states she ate [employer] chicken at approximately 2200 and sick by 0300, pt alert and oriented, ablet ot transfe self from wheelchair to bed Triage Nursing Assessment: pt to er c/o nausea, vomiting, fever body aches since 299, pt alert and oriented, able to anwers questions appropriately, able to transfer self from wheelchair to bed, feels the urge to vomit, no vimiting during triage Physician History: The patient is a 32-year-old female with her mother complaining of an onset of nausea, vomiting, and diarrhea with fever since 3 AM. She's had numerous rounds of vomiting. The diarrhea is watery. She feels weak. She is not lightheaded upon standing. Timing/Duration: today, hour(s) (9) Severity: moderate Modifying Factors: Improves With: nothing Associated Symptoms: nausea, vomiting, fever, weakness, No abdominal pain Allergies/Adverse Reactions: hydromorphone HCl [From Dilaudid] Allergy (Severe, Verified 08/08/17 12:02) azithromycin [From Zithromax] Allergy (Intermediate, Verified 08/08/17 12:02) erythromycin base [Erythromycin Base] Allergy (Mild, Verified 08/08/17 12:02) morphine Adverse Reaction (Verified 08/08/17 12:02) Hx Tetanus, Diphtheria Vaccination/Date Given: No Hx Influenza Vaccination/Date Given: No Hx Pneumococcal Vaccination/Date Given: No Immunizations Up to Date: No - Review of Systems Constitutional: Fever, Weakness Eyes: No Symptoms Ears, Nose, & Throat: No Symptoms Respiratory: No Cough, No Dyspnea Cardiac: No Chest Pain, No Edema, No Syncope Abdominal/Gastrointestinal: Nausea, Vomiting, Diarrhea Genitourinary Symptoms: No Dysuria Musculoskeletal: No Back Pain, No Neck Pain Skin: No Rash Neurological: No Dizziness, No Focal Weakness, No Sensory Changes Psychological: No Symptoms Endocrine: No Symptoms Hematologic/Lymphatic: No Symptoms Immunological/Allergic: No Symptoms All Other Systems: Reviewed and Negative - Past Medical History Pertinent Past Medical History: Yes Neurological History: No Pertinent History ENT History: No Pertinent History Cardiac History: Arrhythmia, Other Respiratory History: No Pertinent History Endocrine Medical History: No Pertinent History Musculoskeletal History: No Pertinent History GI Medical History: No Pertinent History History: No Pertinent History Psycho-Social History: No Pertinent History Female Reproductive Disorders: No Pertinent History Other Medical History: kidney stones; a-fib - Past Surgical History Past Surgical History: Yes Neuro Surgical History: No Pertinent History Cardiac: No Pertinent History Respiratory: No Pertinent History Gastrointestinal: Appendectomy Genitourinary: No Pertinent History Musculoskeletal: No Pertinent History Female Surgical History: Dilation & Curettage, Section Other Surgical History: D&C, states ultrasound and stress showed irreg. 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 tubal 12/03/15 - Social History Smoking Status: Current every day smoker How long have you smoked: 12 Exposure to second hand smoke: Yes Drug Use: none Patient Lives Alone: No - Female History Hx Now: No - Nursing Vital Signs Nursing Vital Signs: Initial Vital Signs Temperature 97.7 F 08/08/17 11:46 Pulse Rate 101 H 08/08/17 11:46 Respiratory Rate 20 08/08/17 11:46 Blood Pressure 170/96 08/08/17 11:46 O2 Sat by Pulse Oximetry 99 08/08/17 11:46 Pain Scale Pain Intensity 0 - Physical Exam General Appearance: no apparent distress, alert Eye Exam: PERRL/EOMI, eyes nml inspection Ears, Nose, Throat Exam: normal ENT inspection, TMs normal, pharynx normal, moist mucous membranes Neck Exam: normal inspection, non-tender, supple, full range of motion Respiratory Exam: normal breath sounds, lungs clear, No respiratory distress Cardiovascular Exam: regular rate/rhythm, normal heart sounds, normal peripheral pulses Gastrointestinal/Abdomen Exam: soft, normal bowel sounds Pelvic Exam: not done Rectal Exam: not done Back Exam: normal inspection, normal range of motion, No CVA tenderness, No vertebral tenderness Extremity Exam: normal inspection Neurologic Exam: alert, oriented x 3, cooperative, normal mood/affect, nml cerebellar function, nml station & gait, sensation nml, No motor deficits Skin Exam: normal color, warm, dry, No rash Lymphatic Exam: No adenopathy SpO2 Interpretation: normal SpO2: 99 Oxygen Delivery: Room Air - Radiology Exams Chest X-ray Interpretation: Reviewed by me, Teleradiologist Report, Negative (per DR Jovel) Abdomen X-ray Interpretation: Reviewed by me, Teleradiologist Report, Negative (per Dr Jovel) Ordered Tests: Active Orders 24 hr Category Date Time Status IV Insertion STAT Care 08/08/17 12:25 Active OBSTR/ACUTE ABDOMEN SERIES Stat Exams 08/08/17 12:26 Completed CBC W DIFF Stat Lab 08/08/17 12:20 Completed CMP Stat Lab 08/08/17 12:20 Completed HCG QUALITATIVE,SERUM Stat Lab 08/08/17 12:20 Completed LIPASE Stat Lab 08/08/17 12:20 Completed Lactic Acid Stat Lab 08/08/17 13:10 Completed Medication Summary Discontinued Medications Generic Name Dose Route Start Last Admin Trade Name Freq PRN Reason Stop Dose Admin Famotidine 20 mg 08/08/17 12:25 08/08/17 12:52 Pepcid 20 Mg Vial IV 08/08/17 12:26 20 mg STAT ONE Administration Famotidine Confirm 08/08/17 12:33 Pepcid 20 Mg Vial Administered 08/08/17 12:34 Dose 20 mg IV .STK-MED ONE Sodium Chloride 1,000 mls @ 999 mls/hr 08/08/17 12:25 08/08/17 12:51 Sodium Chloride 0.9% 1000 Ml IV 08/08/17 13:25 999 mls/hr .Q1H1M STA Administration Sodium Chloride Confirm 08/08/17 12:33 Sodium Chloride 0.9% 1000 Ml Administered 08/08/17 12:34 Dose 1,000 mls @ ud .ROUTE .STK-MED ONE Ondansetron HCl 4 mg 08/08/17 12:25 08/08/17 12:54 Zofran 4 Mg/2 Ml Vial IV 08/08/17 12:26 4 mg STAT ONE Administration Ondansetron HCl Confirm 08/08/17 12:33 Zofran 4 Mg/2 Ml Vial Administered 08/08/17 12:34 Dose 4 mg .ROUTE .STK-MED ONE Lab/Rad Data: Laboratory Result Diagrams 08/08/17 12:20 08/08/17 12:20 Laboratory Results 08/08/17 08/08/17 08/08/17 Range/Units 13:10 12:20 12:20 WBC (4.0-10.5) K/mm3 RBC (4.1-5.4) M/mm3 Hgb (12.0-16.0) gm/dl Hct (35-47) % MCV (78-100) fl MCH (26-32) pg MCHC (32-36) g/dl RDW (11.5-14.0) % Plt Count (150-450) K/mm3 MPV (6-9.5) fl Gran % (36.0-66.0) % Lymphocytes % (24.0-44.0) % Monocytes % (0.0-12.0) % Eosinophils % (0.00-5.0) % Basophils % (0.0-0.4) % Basophils # (0-0.4) Sodium 142 (137-145) mmol/L Potassium 3.9 (3.5-5.1) mmol/L Chloride 108 H (98-107) mmol/L Carbon Dioxide 19 L (22-30) mmol/L Anion Gap 18.4 H (5-15) MEQ/L BUN 17 (7-17) mg/dL Creatinine 0.64 (0.52-1.04) mg/dL Estimated GFR > 60 ML/MIN Glucose 108 H (74-106) mg/dL Lactic Acid 0.7 (0.4-2.0) Calcium 9.8 (8.4-10.2) mg/dL Total Bilirubin 0.70 (0.2-1.3) mg/dL AST 16 (14-36) U/L ALT 16 (0-35) U/L Alkaline Phosphatase 78 (38-126) U/L Serum Total Protein 8.2 (6.3-8.2) g/dL Albumin 4.5 (3.5-5.0) g/dL Lipase 80 (23-300) U/L Serum , Qual NEGATIVE (Negative) 08/08/17 Range/Units 12:20 WBC 11.6 H (4.0-10.5) K/mm3 RBC 5.13 (4.1-5.4) M/mm3 Hgb 13.8 (12.0-16.0) gm/dl Hct 43.0 (35-47) % MCV 83.8 (78-100) fl MCH 26.9 (26-32) pg MCHC 32.1 (32-36) g/dl RDW 14.7 H (11.5-14.0) % Plt Count 264 (150-450) K/mm3 MPV 9.9 H (6-9.5) fl Gran % 90.3 H (36.0-66.0) % Lymphocytes % 6.5 L (24.0-44.0) % Monocytes % 2.9 (0.0-12.0) % Eosinophils % 0.3 (0.00-5.0) % Basophils % 0.0 (0.0-0.4) % Basophils # 0 (0-0.4) Sodium (137-145) mmol/L Potassium (3.5-5.1) mmol/L Chloride (98-107) mmol/L Carbon Dioxide (22-30) mmol/L Anion Gap (5-15) MEQ/L BUN (7-17) mg/dL Creatinine (0.52-1.04) mg/dL Estimated GFR ML/MIN Glucose (74-106) mg/dL Lactic Acid (0.4-2.0) Calcium (8.4-10.2) mg/dL Total Bilirubin (0.2-1.3) mg/dL AST (14-36) U/L ALT (0-35) U/L Alkaline Phosphatase (38-126) U/L Serum Total Protein (6.3-8.2) g/dL Albumin (3.5-5.0) g/dL Lipase (23-300) U/L Serum , Qual (Negative) - Progress Progress: improved Counseled pt/family regarding: lab results, diagnosis, rad results - Departure Time of Disposition: 14:52 Departure Disposition: Home Clinical Impression: Gastroenteritis Condition: Stable Critical Care Time: No Referrals: ARNOLD CAMARILLO NP [Primary Care Provider] - Additional Instructions: You have gastroenteritis. You were given Zofran 4 mg and fluids by IV in the ER. Take Zofran 4 mg ODT every 6 hours as needed for nausea and vomiting. Stay well hydrated. Began with a all liquid diet and advance as tolerated. Follow-up with your primary care doctor as needed. Prescriptions: Ondansetron ODT 4 MG [Zofran Odt 4 mg] 1 tab PO Q6H PRN PRN #10 tab.rapdis PRN Reason: Nausea/Vomiting
[2017-08-08] MEDS ORDERED: Pepcid 20 MG VIAL IV ONE (12:33)
[2017-08-08] MEDS ORDERED: Sodium Chloride 0.9% 1000 ML 1,000 ML ONE (12:33)
[2017-08-08] MEDS ORDERED: Zofran 4 MG/2 ML VIAL ONE (12:33)
[2017-08-08 12:39] LABS: Basophil (Absolute #) 0 (0-0.4); Eosinophil % 0.3 % (0.00-5.0); Eosinophil (Absolute #) 0.03 (0-0.5); Granulocyte Absolute (ANC) 10.44 (1.4-6.9); Granulocytes % 90.3 % (36.0-66.0); Hemoglobin 13.8 gm/dl (12.0-16.0); Lymphocyte (Absolute #) 0.75 (1.0-4.6); Lymphocytes % 6.5 % (24.0-44.0); Mean Cell Volume 83.8 fl (78-100); Mean Corpuscular Hemoglobin 26.9 pg (26-32); Mean Corpuscular Hgb Concent. 32.1 g/dl (32-36); Mean Platelet Volume 9.9 fl (6-9.5); Monocyte (Absolute #) 0.33 (0.0-1.3); Monocytes % 2.9 % (0.0-12.0); Platelet Count 264 K/mm3 (150-450); Red Blood Count 5.13 M/mm3 (4.1-5.4); Red Cell Distribution Width 14.7 % (11.5-14.0); White Blood Count 11.6 K/mm3 (4.0-10.5)
[2017-08-08] MEDS: Pepcid 20 MG VIAL IV ONE ×2 (12:51→12:52)
[2017-08-08] MEDS: Zofran 4 MG/2 ML VIAL IV ONE (12:54)
--- NOTE | 2017-08-08 12:54 | XRAY ---
Indication: Vomiting. Comparison: Chest exam December 23, 2016. 2 views of the abdomen demonstrates nonspecific nonobstructed bowel gas pattern with minimal small bowel air fluid leveling. No focal bowel dilatation or free air. Solid organs and osseous structures unremarkable. Single frontal chest again demonstrates normal heart, lungs, and bony thorax with incidental calcified granulomas. Impression: 1. Nonobstructed abdomen with minimal nonspecific small bowel air fluid leveling. 2. Stable normal 1 view chest again with evidence for old granulomatous disease.
[2017-08-08 12:57] LABS: ALBUMIN 4.5 g/dL (3.5-5.0); ALKALINE PHOSPHATASE 78 U/L (38-126); ANION GAP 18.4 MEQ/L (5-15); BLOOD UREA NITROGEN 17 mg/dL (7-17); CHLORIDE 108 mmol/L (98-107); Calcium 9.8 mg/dL (8.4-10.2); Carbon Dioxide 19 mmol/L (22-30); Creatinine 1 0.64 mg/dL (0.52-1.04); Glucose 108 mg/dL (74-106); LIPASE 80 U/L (23-300); Potassium 3.9 mmol/L (3.5-5.1); SGOT/AST 16 U/L (14-36); SGPT/ALT 16 U/L (0-35); SODIUM 142 mmol/L (137-145); Total Protein 8.2 g/dL (6.3-8.2)
[2017-08-08 15:03] VITALS: BP 110/64; PULSE 86; O2SAT 97
== END 2017-08-08 15:12 | disposition home or self-care (01) ==
LOC: ED 11:38
DX: K52.9 Noninfective gastroenteritis and colitis, unspecified (principal); R11.2 Nausea with vomiting, unspecified
CPT/HCPCS: 36000; 36415; 74022; 80053; 83605; 83690; 84703; 85025; 96360; 96374; 96375; 99284; J2405

== ENCOUNTER 2017-10-19 21:14 | Emergency (ER) | payer OTHER ==
[2017-10-19] MEDS ORDERED: BABY ASPIRIN 81 MG CHEW PO ONE (21:36)
--- NOTE | 2017-10-19 21:43 | ERPHSYRPT ---
- History of Present Illness Time Seen by Provider: 10/19/17 21:38 Historian: patient Exam Limitations: no limitations Physician History: 32-year-old white female arrives with complaint of chest pain left anterior chest at the sternal border radiating to the left shoulder and jaw symptoms beginning at 6:30 PM associated with shortness of breath and nausea. Past medical history includes kidney stones atrial fibrillation migraines anxiety depression panic disorder. Past surgical history includes appendectomy D&C and as well as a tubal ligation Patient apparently has been seen by a political research scientist several times and he has not found irregular heart rhythm Social history positive tobacco use Timing/Duration: today Activities at Onset: none Quality: pressure Location: substernal Chest Pain Radiation: jaw (left shoulder), arm Severity of Pain-Max: moderate Severity of Pain-Current: mild Modifying Factors: Improves With: nothing Associated Symptoms: nausea, shortness of breath, No vomiting, No palpitations, No heartburn, No abdominal pain, No cough, No hurts to breathe, No diaphoresis, No chills, No fever, No fatigue, No weakness, No swelling/lump in chest, No syncope, No rash, No headache, No dizziness, No edema, No back pain Nitro Today/Relief: no nitro taken today Aspirin Treatment Today: 81 mg x 4, provided by ED Allergies/Adverse Reactions: hydromorphone HCl [From Dilaudid] Allergy (Severe, Verified 10/19/17 21:39) azithromycin [From Zithromax] Allergy (Intermediate, Verified 10/19/17 21:39) erythromycin base [Erythromycin Base] Allergy (Mild, Verified 10/19/17 21:39) morphine Adverse Reaction (Verified 10/19/17 21:39) Home Medications: No Reportable Medications [No Reported Medications] 10/19/17 [History] Hx Tetanus, Diphtheria Vaccination/Date Given: No Hx Influenza Vaccination/Date Given: No Hx Pneumococcal Vaccination/Date Given: No - Review of Systems Constitutional: No Fever, No Chills Eyes: No Symptoms Ears, Nose, & Throat: No Symptoms Respiratory: Dyspnea, No Cough, No Cyanosis, No Dyspnea on Exertion (HOWARD), No Stridor, No Wheezing Cardiac: Chest Pain Abdominal/Gastrointestinal: Nausea, No Vomiting, No Diarrhea, No Constipation, No Hematemesis, No Hematochezia, No Melena, No Dysphagia Genitourinary Symptoms: No Dysuria Musculoskeletal: No Back Pain, No Neck Pain Skin: No Rash Neurological: No Dizziness, No Focal Weakness, No Sensory Changes Psychological: No Symptoms Endocrine: No Symptoms All Other Systems: Reviewed and Negative - Past Medical History Pertinent Past Medical History: Yes Neurological History: No Pertinent History ENT History: No Pertinent History Cardiac History: Arrhythmia, Other Respiratory History: No Pertinent History Endocrine Medical History: No Pertinent History Musculoskeletal History: No Pertinent History GI Medical History: No Pertinent History History: No Pertinent History Psycho-Social History: No Pertinent History Female Reproductive Disorders: No Pertinent History Other Medical History: kidney stones; a-fib - Past Surgical History Past Surgical History: Yes Neuro Surgical History: No Pertinent History Cardiac: No Pertinent History Respiratory: No Pertinent History Gastrointestinal: Appendectomy Genitourinary: No Pertinent History Musculoskeletal: No Pertinent History Female Surgical History: Dilation & Curettage, Section Other Surgical History: D&C, states ultrasound and stress showed irreg. heartbeat and chest pain in past few months, political research scientist unable to find irregular heartbeat. tubal 12/03/15 - Social History Smoking Status: Current every day smoker How long have you smoked: 12 Exposure to second hand smoke: Yes Drug Use: none Patient Lives Alone: No - Nursing Vital Signs Nursing Vital Signs: Initial Vital Signs Temperature 97.2 F 10/19/17 21:25 Pulse Rate 88 10/19/17 21:25 Respiratory Rate 22 10/19/17 21:25 Blood Pressure 128/76 10/19/17 21:25 O2 Sat by Pulse Oximetry 100 10/19/17 21:25 Pain Scale Pain Intensity 7 - Physical Exam General Appearance: no apparent distress, alert Eye Exam: PERRL/EOMI, eyes nml inspection Ears, Nose, Throat Exam: normal ENT inspection, moist mucous membranes Neck Exam: normal inspection, non-tender, supple, full range of motion Respiratory Exam: normal breath sounds, lungs clear, No respiratory distress Cardiovascular Exam: regular rate/rhythm, normal heart sounds Gastrointestinal/Abdomen Exam: soft, No tenderness, No mass Back Exam: normal inspection, No CVA tenderness, No vertebral tenderness Extremity Exam: normal inspection, normal range of motion Neurologic Exam: alert, oriented x 3, cooperative, drop pit worker II-XII nml as tested, normal mood/affect, sensation nml, No motor deficits Skin Exam: normal color, warm, dry SpO2 Interpretation: normal (1over him00%) - Course Nursing assessment & vital signs reviewed: Yes EKG Interpreted by Me: RATE (97 bpm), Sinus Rhythm, NORMAL AXIS, Other (EKG sinus rhythm, 97 bpm, normal axis, moderate amount of artifact, no acute st or t wave changes noted) - Radiology Exams Chest X-ray Interpretation: Interpreted by me (no acute disease process noted) Ordered Tests: Active Orders 24 hr Category Date Time Status Errand Runner STAT Care 10/19/17 21:36 Active EKG-ER Only STAT Care 10/19/17 21:36 Active IV Insertion STAT Care 10/19/17 21:36 Active Pulse Oximetry (ED) STAT Care 10/19/17 21:36 Active CHEST 1 VIEW (PORTABLE) Stat Exams 10/19/17 21:36 Taken AMYLASE Stat Lab 10/19/17 21:20 Completed CBC W DIFF Stat Lab 10/19/17 21:20 Completed CMP Stat Lab 10/19/17 21:20 Completed D-DIMER QUANTITATION Stat Lab 10/19/17 21:20 Completed LIPASE Stat Lab 10/19/17 21:20 Completed PROTIME WITH INR Stat Lab 10/19/17 21:20 Completed PTT Stat Lab 10/19/17 21:20 Completed TROPONIN Q3H Lab 10/19/17 21:20 Completed TROPONIN Q3H Lab 10/20/17 00:45 Ordered TROPONIN Q3H Lab 10/20/17 03:45 Ordered TROPONIN Q3H Lab 10/20/17 06:45 Ordered TROPONIN Q3H Lab 10/20/17 09:45 Ordered Medication Summary Discontinued Medications Generic Name Dose Route Start Last Admin Trade Name Freq PRN Reason Stop Dose Admin Aspirin 324 mg 10/19/17 21:36 10/19/17 21:43 Baby Aspirin 81 Mg Chew PO 10/19/17 21:37 324 mg STAT ONE Administration Lab/Rad Data: Laboratory Result Diagrams 10/19/17 21:20 10/19/17 21:20 Laboratory Results 10/19/17 10/19/17 10/19/17 Range/Units 21:20 21:20 21:20 WBC (4.0-10.5) K/mm3 RBC (4.1-5.4) M/mm3 Hgb (12.0-16.0) gm/dl Hct (35-47) % MCV (78-100) fl MCH (26-32) pg MCHC (32-36) g/dl RDW (11.5-14.0) % Plt Count (150-450) K/mm3 MPV (6-9.5) fl Gran % (36.0-66.0) % Eos # (Auto) (0-0.5) Absolute Lymphs (auto) (1.0-4.6) Absolute Monos (auto) (0.0-1.3) Lymphocytes % (24.0-44.0) % Monocytes % (0.0-12.0) % Eosinophils % (0.00-5.0) % Basophils % (0.0-0.4) % Absolute Granulocytes (1.4-6.9) Basophils # (0-0.4) PT 11.2 (9.95-12.35) SECONDS INR 0.96 (0.8-3.0) APTT 31.7 (25.3-37.0) SECONDS D-Dimer < 215 L (215-500) ng/mL Sodium (137-145) mmol/L Potassium (3.5-5.1) mmol/L Chloride (98-107) mmol/L Carbon Dioxide (22-30) mmol/L Anion Gap (5-15) MEQ/L BUN (7-17) mg/dL Creatinine (0.52-1.04) mg/dL Estimated GFR ML/MIN Glucose (74-106) mg/dL Calcium (8.4-10.2) mg/dL Total Bilirubin (0.2-1.3) mg/dL AST (14-36) U/L ALT (0-35) U/L Alkaline Phosphatase (38-126) U/L Troponin I < 0.012 (0.000-0.034) ng/mL Serum Total Protein (6.3-8.2) g/dL Albumin (3.5-5.0) g/dL Amylase 64 (30-110) U/L Lipase 189 (23-300) U/L 10/19/17 10/19/17 Range/Units 21:20 21:20 WBC 7.7 (4.0-10.5) K/mm3 RBC 4.74 (4.1-5.4) M/mm3 Hgb 13.0 (12.0-16.0) gm/dl Hct 40.0 (35-47) % MCV 84.4 (78-100) fl MCH 27.4 (26-32) pg MCHC 32.5 (32-36) g/dl RDW 15.1 H (11.5-14.0) % Plt Count 286 (150-450) K/mm3 MPV 10.3 H (6-9.5) fl Gran % 47.8 (36.0-66.0) % Eos # (Auto) 0.10 (0-0.5) Absolute Lymphs (auto) 3.45 (1.0-4.6) Absolute Monos (auto) 0.43 (0.0-1.3) Lymphocytes % 44.9 H (24.0-44.0) % Monocytes % 5.6 (0.0-12.0) % Eosinophils % 1.3 (0.00-5.0) % Basophils % 0.4 (0.0-0.4) % Absolute Granulocytes 3.67 (1.4-6.9) Basophils # 0.03 (0-0.4) PT (9.95-12.35) SECONDS INR (0.8-3.0) APTT (25.3-37.0) SECONDS D-Dimer (215-500) ng/mL Sodium 143 (137-145) mmol/L Potassium 3.6 (3.5-5.1) mmol/L Chloride 111 H (98-107) mmol/L Carbon Dioxide 17 L (22-30) mmol/L Anion Gap 18.8 H (5-15) MEQ/L BUN 12 (7-17) mg/dL Creatinine 0.63 (0.52-1.04) mg/dL Estimated GFR > 60.0 ML/MIN Glucose 146 H (74-106) mg/dL Calcium 9.8 (8.4-10.2) mg/dL Total Bilirubin < 0.10 L (0.2-1.3) mg/dL AST 17 (14-36) U/L ALT 16 (0-35) U/L Alkaline Phosphatase 73 (38-126) U/L Troponin I (0.000-0.034) ng/mL Serum Total Protein 7.6 (6.3-8.2) g/dL Albumin 4.3 (3.5-5.0) g/dL Amylase (30-110) U/L Lipase (23-300) U/L - Progress Progress: improved Air Movement: fair Progress Note: 10/19/17 22:56 This is a 32-year-old white female with history of atrial fibrillation in the past however she has not been noted to have arrhythmia recently by a political research scientist history kidney stones atrial fibrillation, migraines She arrives with complaint of chest pain of left-sided near the sternum radiating to her left shoulder and jaw onset at 6:30. Patient is given aspirin 324 mg orally EKG is obtained no acute ST or T wave changes are noted labs are remarkable for mild increased anion gap otherwise negative troponin is negative with normal range. Chest x-ray is unremarkable. Patient is feeling much better she has no pain at this time. I've offered her repeat troponin 3 hours after last draw she really does not want to do this. I've also offered to give her IV fluids in view of her very mild increased anion gap she states she preferred to take oral fluids at home. Will go ahead and discharge patient have her go home rest plenty of fluids Tylenol as needed for pain. Patient to follow-up with her family doctor. Return for acute distress or for severe symptoms. Patient advised to stop smoking. . - Departure Time of Disposition: 23:01 Departure Disposition: Home Clinical Impression: Non-cardiac chest pain, increased anion gap Condition: Fair Critical Care Time: No Referrals: DOCTOR,NO FAMILY [Primary Care Provider] - Additional Instructions: Return home. Rest. Plenty of fluids. Tylenol every 4 hours as needed for pain. Follow-up with your family doctor. Return for acute distress or for severe symptoms. Stop smoking.
[2017-10-19 21:47] LABS: BASOPHIL % 0.4 % (0.0-0.4); Basophil (Absolute #) 0.03 (0-0.4); Eosinophil % 1.3 % (0.00-5.0); Granulocyte Absolute (ANC) 3.67 (1.4-6.9); Granulocytes % 47.8 % (36.0-66.0); Lymphocyte (Absolute #) 3.45 (1.0-4.6); Lymphocytes % 44.9 % (24.0-44.0); Mean Cell Volume 84.4 fl (78-100); Mean Corpuscular Hemoglobin 27.4 pg (26-32); Mean Corpuscular Hgb Concent. 32.5 g/dl (32-36); Mean Platelet Volume 10.3 fl (6-9.5); Monocyte (Absolute #) 0.43 (0.0-1.3); Monocytes % 5.6 % (0.0-12.0); Platelet Count 286 K/mm3 (150-450); Red Blood Count 4.74 M/mm3 (4.1-5.4); Red Cell Distribution Width 15.1 % (11.5-14.0); White Blood Count 7.7 K/mm3 (4.0-10.5)
[2017-10-19 21:49] LABS: INR 0.96 (0.8-3.0)
[2017-10-19 21:51] LABS: PTT 31.7 SECONDS (25.3-37.0)
[2017-10-19 21:52] LABS: AMYLASE 64 U/L (30-110); LIPASE 189 U/L (23-300)
[2017-10-19 21:53] LABS: ALBUMIN 4.3 g/dL (3.5-5.0); ALKALINE PHOSPHATASE 73 U/L (38-126); ANION GAP 18.8 MEQ/L (5-15); BILIRUBIN,TOTAL < 0.10 mg/dL (0.2-1.3); BLOOD UREA NITROGEN 12 mg/dL (7-17); CHLORIDE 111 mmol/L (98-107); Calcium 9.8 mg/dL (8.4-10.2); Carbon Dioxide 17 mmol/L (22-30); Creatinine 1 0.63 mg/dL (0.52-1.04); Glucose 146 mg/dL (74-106); Potassium 3.6 mmol/L (3.5-5.1); SGOT/AST 17 U/L (14-36); SODIUM 143 mmol/L (137-145); Total Protein 7.6 g/dL (6.3-8.2)
[2017-10-19 21:56] LABS: D-DIMER QUANTITATION < 215 ng/mL (215-500)
[2017-10-19 22:05] LABS: SGPT/ALT 16 U/L (0-35)
[2017-10-19 23:11] VITALS: BP 113/57; PULSE 82
[2017-10-19 23:48] VITALS: O2SAT 99
--- NOTE | 2017-10-20 08:43 | XRAY ---
Indication: Chest pain. Comparison: August 08, 2017. Portable chest again demonstrates normal heart, lungs, and bony thorax.
== END 2017-10-19 23:49 | disposition home or self-care (01) ==
LOC: ED 21:14
DX: R07.89 Other chest pain (principal); R11.0 Nausea; R06.02 Shortness of breath; R79.89 Other specified abnormal findings of blood chemistry
CPT/HCPCS: 36000; 36415; 71045; 80053; 82150; 83690; 84484; 85025; 85379; 85610; 85730; 93005; 93041; 99284; A9270-GY

== ENCOUNTER 2017-11-12 19:01 | Emergency (ER) | payer OTHER ==
[2017-11-12] MEDS ORDERED: Sodium Chloride 0.9% 1000 ML 1,000 ML IV STA ×2 (19:08→19:09)
[2017-11-12 19:17] VITALS: O2SAT 99
[2017-11-12 19:32] LABS: BASOPHIL % 0.1 % (0.0-0.4); Basophil (Absolute #) 0.01 (0-0.4); Eosinophil % 0.1 % (0.00-5.0); Eosinophil (Absolute #) 0.01 (0-0.5); Granulocyte Absolute (ANC) 4.62 (1.4-6.9); Granulocytes % 65.5 % (36.0-66.0); Hematocrit 37.8 % (35-47); Hemoglobin 12.4 gm/dl (12.0-16.0); Lymphocyte (Absolute #) 1.96 (1.0-4.6); Lymphocytes % 27.8 % (24.0-44.0); Mean Corpuscular Hemoglobin 27.6 pg (26-32); Mean Corpuscular Hgb Concent. 32.8 g/dl (32-36); Mean Platelet Volume 10.1 fl (6-9.5); Monocyte (Absolute #) 0.46 (0.0-1.3); Monocytes % 6.5 % (0.0-12.0); Platelet Count 266 K/mm3 (150-450); White Blood Count 7.1 K/mm3 (4.0-10.5)
[2017-11-12 19:48] LABS: ANION GAP 14.9 MEQ/L (5-15); BLOOD UREA NITROGEN 11 mg/dL (7-17); CHLORIDE 113 mmol/L (98-107); Calcium 9.1 mg/dL (8.4-10.2); Carbon Dioxide 19 mmol/L (22-30); Creatinine 1 0.72 mg/dL (0.52-1.04); Glucose 98 mg/dL (74-106); Potassium 3.2 mmol/L (3.5-5.1); SODIUM 144 mmol/L (137-145)
[2017-11-12] MEDS ORDERED: Sodium Chloride 0.9% 1000 ML 1,000 ML ONE (19:49)
[2017-11-12] MEDS ORDERED: Klor Con 10 MEQ PO ONE ×2 (20:46→21:14)
[2017-11-12 21:37] LABS: Appearance HAZY (CLEAR)
[2017-11-12 21:38] LABS: Bilirubin SMALL (NEGATIVE); Blood NEGATIVE Ery/ul (0-5); Glucose NEGATIVE (NEGATIVE); Ketones LARGE (NEGATIVE); Leukocyte Esterase TRACE (NEGATIVE); Nitrite NEGATIVE (NEGATIVE); Protein,Urine Dip NEGATIVE (Negative); Specific Gravity 1.005 (1.005-1.025); Urobilinogen 1 mg/dL (0-1)
[2017-11-12 21:39] LABS: Amourphous Crystal FEW /HPF (NEGATIVE); Bacteria MODERATE /HPF (NEGATIVE); Epithelial Cells MODERATE /HPF (FEW); Mucus MANY /HPF (NEGATIVE)
[2017-11-12 21:41] LABS: Amphetamine,Urine NEGATIVE (NEGATIVE); Barbiturate,Urine NEGATIVE (NEGATIVE); Benzodiazepine,Urine NEGATIVE (NEGATIVE); Cocaine,Urine NEGATIVE (NEGATIVE); Methadone,Urine NEGATIVE (NEGATIVE); Opiate,Urine NEGATIVE (NEGATIVE); PCP,Urine NEGATIVE (NEGATIVE); THC,Urine NEGATIVE (NEGATIVE)
--- NOTE | 2017-11-12 21:49 | ERPHSYRPT ---
- History of Present Illness Time Seen by Provider: 11/12/17 19:15 Source: patient Exam Limitations: clinical condition Patient Subjective Stated Complaint: pt reports around 1700 her stomach started cramping, her head began to hurt and her muscles felt sore. states she was in the bathroom bent over and got dizzy, states her heart started racing she went to sit down and she passed out. reports being outside since 1000. states she did not drink much water or had a meal today. Triage Nursing Assessment: pt is aox3, pupils perrl, pt afebrile, pt resps easy and non labored, lung sounds are clear throughout, radial pulses are strong and equal bilat, cap refill < 3 seconds. pt appears sunburned to face shoulders and arms. pt moves all extremities, pt sensation is intact to upper and lower extremities. Physician History: PATIENT STATES SHE WAS OUT IN THE SUN AT THE POOL SINCE 10AM, NO ORAL FLUID INTAKE, HAS NOT VOIDED TODAY, FELT DIZZY, PASSED OUT WITH THE LIFE GUARDS EASING PATIENT TO GROUND. DENIES HEAD OR NECK INJURY. PATIENT COMPLAINS OF HAVING DIARRHEA FOR 1 WEEK Timing/Duration: today Severity: moderate Character of Deficits: none Deficits: no difficulties Baseline/Normal Cognition: alert oriented x 3 Current Cognition: alert oriented x 3 Baseline Gait: walks w/o assistance Associated Symptoms: other (DIARRHEA) Allergies/Adverse Reactions: hydromorphone HCl [From Dilaudid] Allergy (Severe, Verified 11/12/17 19:17) azithromycin [From Zithromax] Allergy (Intermediate, Verified 11/12/17 19:17) erythromycin base [Erythromycin Base] Allergy (Mild, Verified 11/12/17 19:17) morphine Adverse Reaction (Verified 11/12/17 19:17) Hx Tetanus, Diphtheria Vaccination/Date Given: Yes Hx Influenza Vaccination/Date Given: No Hx Pneumococcal Vaccination/Date Given: No Immunizations Up to Date: Yes - Review of Systems Constitutional: No Symptoms, Weakness, No Fever, No Chills Eyes: No Symptoms Ears, Nose, & Throat: No Symptoms Respiratory: No Symptoms, No Cough, No Dyspnea Cardiac: No Symptoms, No Chest Pain, No Edema, No Syncope Abdominal/Gastrointestinal: Diarrhea, No Abdominal Pain, No Nausea, No Vomiting Genitourinary Symptoms: No Symptoms, No Dysuria Musculoskeletal: No Symptoms, No Back Pain, No Neck Pain Skin: No Rash Neurological: Other (SYNCOPE), No Dizziness, No Focal Weakness, No Sensory Changes Psychological: No Symptoms Endocrine: No Symptoms All Other Systems: Reviewed and Negative - Past Medical History Pertinent Past Medical History: Yes Neurological History: No Pertinent History ENT History: No Pertinent History Cardiac History: Arrhythmia, Other Respiratory History: No Pertinent History Endocrine Medical History: No Pertinent History Musculoskeletal History: No Pertinent History GI Medical History: No Pertinent History History: No Pertinent History Psycho-Social History: No Pertinent History Female Reproductive Disorders: No Pertinent History Other Medical History: kidney stones; a-fib - Past Surgical History Past Surgical History: Yes Neuro Surgical History: No Pertinent History Cardiac: No Pertinent History Respiratory: No Pertinent History Gastrointestinal: Appendectomy Genitourinary: No Pertinent History Musculoskeletal: No Pertinent History Female Surgical History: Dilation & Curettage, Section Other Surgical History: D&C, states ultrasound and stress showed irreg. heartbeat and chest pain in past few months, temperature regulator unable to find irregular heartbeat. tubal 12/03/15 - Social History Smoking Status: Current every day smoker How long have you smoked: 12 Exposure to second hand smoke: Yes Drug Use: none Patient Lives Alone: No - Female History Hx Last Menstrual Period: 10/27/17 Hx Now: No (tubal) - Nursing Vital Signs Nursing Vital Signs: Initial Vital Signs Temperature 98.6 F 11/12/17 19:03 Pulse Rate 65 11/12/17 19:03 Respiratory Rate 20 11/12/17 19:03 Blood Pressure 123/61 11/12/17 19:03 O2 Sat by Pulse Oximetry 99 11/12/17 19:03 Pain Scale Pain Intensity 6 - Physical Exam SpO2: 99 Oxygen Delivery: Room Air - Course EKG Interpreted by Me: RATE, Sinus Rhythm, NORMAL AXIS Ordered Tests: Active Orders 24 hr Category Date Time Status Band Singer STAT Care 11/12/17 19:09 Active EKG-ER Only STAT Care 11/12/17 19:08 Active IV Insertion STAT Care 11/12/17 19:38 Active IV Insertion-2nd Peripheral STAT Care 11/12/17 20:57 Active Orthostatic Vital Signs STAT Care 11/12/17 19:10 Active BMP Stat Lab 11/12/17 19:29 Completed CBC W DIFF Stat Lab 11/12/17 19:29 Completed CULTURE,URINE Stat Lab 11/12/17 21:02 Received HCG,QUALITATIVE URINE Stat Lab 11/12/17 21:02 Completed UA W/ MICROSCOPIC Stat Lab 11/12/17 21:02 Completed Urine Triage Profile Stat Lab 11/12/17 21:02 Completed Medication Summary Discontinued Medications Generic Name Dose Route Start Last Admin Trade Name Lata PRN Reason Stop Dose Admin Sodium Chloride 1,000 mls @ 999 mls/hr 11/12/17 19:08 11/12/17 19:52 Sodium Chloride 0.9% 1000 Ml IV 11/12/17 20:08 999 mls/hr .Q1H1M STA Administration Sodium Chloride 1,000 mls @ 999 mls/hr 11/12/17 19:09 11/12/17 20:43 Sodium Chloride 0.9% 1000 Ml IV 11/12/17 20:09 999 mls/hr .Q1H1M STA Administration Sodium Chloride Confirm 11/12/17 19:49 Sodium Chloride 0.9% 1000 Ml Administered 11/12/17 19:50 Dose 1,000 mls @ ud .ROUTE .STK-MED ONE Potassium Chloride 40 meq 11/12/17 20:46 11/12/17 21:23 Klor Con 10 Meq PO 11/12/17 20:47 40 meq STAT ONE Administration Potassium Chloride Confirm 11/12/17 21:14 Klor Con 10 Meq Administered 11/12/17 21:15 Dose 40 meq PO .STK-MED ONE Lab/Rad Data: Laboratory Result Diagrams 11/12/17 19:29 11/12/17 19:29 Laboratory Results 11/12/17 11/12/17 11/12/17 Range/Units 21:02 21:02 21:02 WBC (4.0-10.5) K/mm3 RBC (4.1-5.4) M/mm3 Hgb (12.0-16.0) gm/dl Hct (35-47) % MCV (78-100) fl MCH (26-32) pg MCHC (32-36) g/dl RDW (11.5-14.0) % Plt Count (150-450) K/mm3 MPV (6-9.5) fl Gran % (36.0-66.0) % Eos # (Auto) (0-0.5) Absolute Lymphs (auto) (1.0-4.6) Absolute Monos (auto) (0.0-1.3) Lymphocytes % (24.0-44.0) % Monocytes % (0.0-12.0) % Eosinophils % (0.00-5.0) % Basophils % (0.0-0.4) % Absolute Granulocytes (1.4-6.9) Basophils # (0-0.4) Sodium (137-145) mmol/L Potassium (3.5-5.1) mmol/L Chloride (98-107) mmol/L Carbon Dioxide (22-30) mmol/L Anion Gap (5-15) MEQ/L BUN (7-17) mg/dL Creatinine (0.52-1.04) mg/dL Estimated GFR ML/MIN Glucose (74-106) mg/dL Calcium (8.4-10.2) mg/dL Ur Collection Type VOID Urine Color YELLOW (YELLOW) Urine Appearance HAZY (CLEAR) Urine pH 8.0 (5-6) Ur Specific [place] 1.005 (1.005-1.025) Urine Protein NEGATIVE (Negative) Urine Ketones LARGE (NEGATIVE) Urine Blood NEGATIVE (0-5) Thang/ul Urine Nitrite NEGATIVE (NEGATIVE) Urine Bilirubin SMALL (NEGATIVE) Urine Urobilinogen 1 (0-1) mg/dL Ur Leukocyte Esterase TRACE (NEGATIVE) Urine Microscopic RBC 5-10 (0-2) /HPF Urine Microscopic WBC 2-5 (0-5) /HPF Ur Epithelial Cells MODERATE (FEW) /HPF Amorphous Crystals FEW (NEGATIVE) /HPF Urine Bacteria MODERATE (NEGATIVE) /HPF Urine Mucus MANY (NEGATIVE) /HPF Urine Culture Reflexed YES (NO) Urine Glucose NEGATIVE (NEGATIVE) mg/dL Urine HCG, Qual NEGATIVE (Negative) Urine Opiates Level NEGATIVE (NEGATIVE) Ur Methadone NEGATIVE (NEGATIVE) Urine Barbiturates NEGATIVE (NEGATIVE) Ur Phencyclidine (PCP) NEGATIVE (NEGATIVE) Urine Amphetamine NEGATIVE (NEGATIVE) U Benzodiazepine Level NEGATIVE (NEGATIVE) Urine Cocaine NEGATIVE (NEGATIVE) Urine Marijuana (THC) NEGATIVE (NEGATIVE) Specimen Received 11/12/17211911/12/17 11/12/17 Range/Units 19:29 19:29 WBC 7.1 (4.0-10.5) K/mm3 RBC 4.50 (4.1-5.4) M/mm3 Hgb 12.4 (12.0-16.0) gm/dl Hct 37.8 (35-47) % MCV 84.0 (78-100) fl MCH 27.6 (26-32) pg MCHC 32.8 (32-36) g/dl RDW 15.0 H (11.5-14.0) % Plt Count 266 (150-450) K/mm3 MPV 10.1 H (6-9.5) fl Gran % 65.5 (36.0-66.0) % Eos # (Auto) 0.01 (0-0.5) Absolute Lymphs (auto) 1.96 (1.0-4.6) Absolute Monos (auto) 0.46 (0.0-1.3) Lymphocytes % 27.8 (24.0-44.0) % Monocytes % 6.5 (0.0-12.0) % Eosinophils % 0.1 (0.00-5.0) % Basophils % 0.1 (0.0-0.4) % Absolute Granulocytes 4.62 (1.4-6.9) Basophils # 0.01 (0-0.4) Sodium 144 (137-145) mmol/L Potassium 3.2 L (3.5-5.1) mmol/L Chloride 113 H (98-107) mmol/L Carbon Dioxide 19 L (22-30) mmol/L Anion Gap 14.9 (5-15) MEQ/L BUN 11 (7-17) mg/dL Creatinine 0.72 (0.52-1.04) mg/dL Estimated GFR > 60.0 ML/MIN Glucose 98 (74-106) mg/dL Calcium 9.1 (8.4-10.2) mg/dL Ur Collection Type Urine Color (YELLOW) Urine Appearance (CLEAR) Urine pH (5-6) Ur Specific [place] (1.005-1.025) Urine Protein (Negative) Urine Ketones (NEGATIVE) Urine Blood (0-5) Thang/ul Urine Nitrite (NEGATIVE) Urine Bilirubin (NEGATIVE) Urine Urobilinogen (0-1) mg/dL Ur Leukocyte Esterase (NEGATIVE) Urine Microscopic RBC (0-2) /HPF Urine Microscopic WBC (0-5) /HPF Ur Epithelial Cells (FEW) /HPF Amorphous Crystals (NEGATIVE) /HPF Urine Bacteria (NEGATIVE) /HPF Urine Mucus (NEGATIVE) /HPF Urine Culture Reflexed (NO) Urine Glucose (NEGATIVE) mg/dL Urine HCG, Qual (Negative) Urine Opiates Level (NEGATIVE) Ur Methadone (NEGATIVE) Urine Barbiturates (NEGATIVE) Ur Phencyclidine (PCP) (NEGATIVE) Urine Amphetamine (NEGATIVE) U Benzodiazepine Level (NEGATIVE) Urine Cocaine (NEGATIVE) Urine Marijuana (THC) (NEGATIVE) Specimen Received - Progress Progress: improved Progress Note: 11/12/17 21:52 HYDRATED PATIENT 2 LITERS NORMAL SALINE OVER 3 HOURS, KLOR CON 40MG CRUSHED IN PUDDING. Counseled pt/family regarding: lab results, diagnosis, need for follow-up, rad results - Departure Time of Disposition: 22:10 Departure Disposition: Home Clinical Impression: SYNCOPE, DEHYDRATION Condition: Stable Critical Care Time: No Referrals: ALISIA DEE),ERNESTO CHOWDHURY MD [Primary Care Provider] - Additional Instructions: DRINK PLENTY OF FLUIDS. ANTIBIOTIC AUGMENTIN SUSPENSION 400MG/5ML, TAKE 7.5ML TWICE DAILY FOR 10 DAYS. POTASSIUM CHLORIDE POWDER 20MEQ MIX IN WATER OR JUICE DAILY FOR 10 DAYS. CONSULT YOUR PRIMARY CARE PROVIDER FOR EVALUATION IN 1 WEEK. Prescriptions: Amoxicillin/Potassium Clav [Augmentin 400-57 mg/5 ml] 7.5 ml PO BID #150 ml Potassium Chloride [Potassium Chloride 20 Meq Powder For Oral Ginger] 20 meq PO DAILY #10 packet
[2017-11-12 22:45] VITALS: BP 115/76; PULSE 76
== END 2017-11-12 22:44 | disposition home or self-care (01) ==
LOC: ED 19:01
DX: R55 Syncope and collapse (principal); E86.0 Dehydration; N39.0 Urinary tract infection, site not specified
CPT/HCPCS: 36000; 36415; 80048; 80307; 81000; 84703; 85025; 87086; 93005; 93041; 96360; 96361; 99284; A9270-GY

== ENCOUNTER 2018-03-08 15:27 | Emergency (ER) | payer OTHER ==
[2018-03-08 16:33] LABS: Appearance CLOUDY (CLEAR); Bilirubin NEGATIVE (NEGATIVE); Blood NEGATIVE Ery/ul (0-5); Glucose NEGATIVE (NEGATIVE); Ketones NEGATIVE (NEGATIVE); Leukocyte Esterase NEGATIVE (NEGATIVE); Nitrite NEGATIVE (NEGATIVE); Protein,Urine Dip NEGATIVE (Negative); Specific Gravity 1.024 (1.005-1.025); Urobilinogen 4 mg/dL (0-1)
--- NOTE | 2018-03-08 16:44 | ERPHSYRPT ---
- History of Present Illness Time Seen by Provider: 03/08/18 16:00 Source: patient Exam Limitations: no limitations Patient Subjective Stated Complaint: low abdominal pain since last night. states has bnot has a period since december..had tubal done 2 years ago.. does state pain with urination.. pain into right back Triage Nursing Assessment: obvious uncomfortable holding low abdomen. states cramping pain with pain into right back. painful urination. concerned due to no period since december. Physician History: 32 y/o white female presents with lower abd pain and associated dysuria and right flank pain. pt has not had a menstrual period since december 2017 and has had a btl. denies vaginal discharge. denies n/v/d. pt has h/o ureterolithiasis and has haad an appendectomy in the past Timing/Duration: day(s) (1), worse Activites at Onset: none Quality: aching, pressure Onset Location: suprapubic, right flank Pain Radiation: suprapubic, right flank Severity of Pain-Max: moderate Severity of Pain-Current: mild Sexual intercourse history: non-contributory Modifying Factors: Improves With: nothing Associated Symptoms: abdominal pain, dysuria, lower back pain (right side), No nausea, No urinary frequency Allergies/Adverse Reactions: hydromorphone HCl [From Dilaudid] Allergy (Severe, Verified 11/12/17 19:17) azithromycin [From Zithromax] Allergy (Intermediate, Verified 11/12/17 19:17) erythromycin base [Erythromycin Base] Allergy (Mild, Verified 11/12/17 19:17) morphine Adverse Reaction (Verified 11/12/17 19:17) Hx Tetanus, Diphtheria Vaccination/Date Given: Yes Hx Influenza Vaccination/Date Given: No Hx Pneumococcal Vaccination/Date Given: No - Review of Systems Constitutional: No Symptoms, No Fever Eyes: No Symptoms, No Discharge Ears, Nose, & Throat: No Symptoms, No Ear Pain, No Nose Pain Respiratory: No Symptoms, No Cough, No Dyspnea, No Stridor, No Wheezing Cardiac: No Symptoms, No Chest Pain, No Palpitations, No Syncope Abdominal/Gastrointestinal: Abdominal Pain (suprapubic), No Nausea, No Vomiting , No Diarrhea Genitourinary Symptoms: Dysuria, No Frequency, No Hematuria Musculoskeletal: No Symptoms Skin: No Symptoms Neurological: No Symptoms Psychological: No Symptoms Endocrine: No Symptoms Hematologic/Lymphatic: No Symptoms Immunological/Allergic: No Symptoms All Other Systems: Reviewed and Negative - Past Medical History Pertinent Past Medical History: Yes Neurological History: No Pertinent History ENT History: No Pertinent History Cardiac History: Arrhythmia, Other Respiratory History: No Pertinent History Endocrine Medical History: No Pertinent History Musculoskeletal History: No Pertinent History GI Medical History: No Pertinent History History: No Pertinent History Psycho-Social History: No Pertinent History Female Reproductive Disorders: No Pertinent History Other Medical History: kidney stones; a-fib - Past Surgical History Past Surgical History: Yes Neuro Surgical History: No Pertinent History Cardiac: No Pertinent History Respiratory: No Pertinent History Gastrointestinal: Appendectomy Genitourinary: No Pertinent History Musculoskeletal: No Pertinent History Female Surgical History: Dilation & Curettage, Section Other Surgical History: D&C, states ultrasound and stress showed irreg. heartbeat and chest pain in past few months, research professional unable to find irregular heartbeat. tubal 12/03/15 - Social History Smoking Status: Never smoker How long have you smoked: 12 Exposure to second hand smoke: No Drug Use: none Patient Lives Alone: No - Female History Hx Now: (unknown) - Nursing Vital Signs Nursing Vital Signs: Initial Vital Signs Temperature 98.9 F 03/08/18 16:07 Pulse Rate 94 H 03/08/18 16:07 Respiratory Rate 18 03/08/18 16:07 Blood Pressure 128/69 03/08/18 16:07 O2 Sat by Pulse Oximetry 98 03/08/18 16:07 Pain Scale Pain Intensity 6 - Physical Exam General Appearance: mild distress, alert, anxiety Eye Exam: PERRL/EOMI, eyes nml inspection Ears, Nose, Throat Exam: normal ENT inspection, moist mucous membranes Neck Exam: normal inspection, non-tender, supple, full range of motion Respiratory Exam: normal breath sounds, lungs clear, airway intact, No chest tenderness, No respiratory distress, No accessory muscle use, No rhonchi, No wheezing, No stridor Cardiovascular Exam: regular rate/rhythm, normal heart sounds, normal peripheral pulses Gastrointestinal/Abdomen Exam: soft, normal bowel sounds, tenderness (suprapubic ), No guarding, No rebound Pelvic Exam: not done Rectal Exam: not done Back Exam: normal inspection, normal range of motion, CVA tenderness (mild right ), No vertebral tenderness Extremity Exam: normal inspection, normal range of motion, pelvis stable Neurologic Exam: alert, oriented x 3, cooperative, imaging aide II-XII nml as tested Skin Exam: normal color, warm, dry Lymphatic Exam: No adenopathy SpO2 Interpretation: normal SpO2: 98 Oxygen Delivery: Room Air - Course Nursing assessment & vital signs reviewed: Yes Ordered Tests: Active Orders 24 hr Category Date Time Status CULTURE,URINE Stat Lab 03/08/18 16:22 Received HCG,QUALITATIVE URINE Stat Lab 03/08/18 16:22 Completed UA W/RFX UR CULTURE Stat Lab 03/08/18 16:22 Completed Medication Summary Discontinued Medications Generic Name Dose Route Start Last Admin Trade Name Freq PRN Reason Stop Dose Admin Ketorolac Tromethamine 60 mg 03/08/18 16:46 Toradol 30 Mg Injection IM 03/08/18 16:47 STAT ONE Lab/Rad Data: Laboratory Results 03/08/18 03/08/18 Range/Units 16:22 16:22 Urine Color YELLOW (YELLOW) Urine Appearance CLOUDY (CLEAR) Urine pH 6.0 (5-6) Ur Specific [place] 1.024 (1.005-1.025) Urine Protein NEGATIVE (Negative) Urine Ketones NEGATIVE (NEGATIVE) Urine Blood NEGATIVE (0-5) Thang/ul Urine Nitrite NEGATIVE (NEGATIVE) Urine Bilirubin NEGATIVE (NEGATIVE) Urine Urobilinogen 4 (0-1) mg/dL Ur Leukocyte Esterase NEGATIVE (NEGATIVE) Urine WBC (Auto) 3-5 (0-5) /HPF Urine RBC (Auto) 3-5 (0-2) /HPF U Epithel Cells (Auto) MODERATE (FEW) /HPF Urine Bacteria (Auto) FEW (NEGATIVE) /HPF Urine Mucus (Auto) SLIGHT (NEGATIVE) /HPF Urine Culture Reflexed YES (NO) Urine Glucose NEGATIVE (NEGATIVE) mg/dL Urine HCG, Qual NEGATIVE (Negative) - Progress Progress: re-examined, unchanged Air Movement: good Progress Note: 03/08/18 16:58 pt declines toradol shot. she states her pain is not bad right now. 03/08/18 16:59 pt no longer has an appendix, no uti, and no blood in urine. Blood Culture(s) Obtained: No Antibiotics given: No Counseled pt/family regarding: lab results, diagnosis, need for follow-up - Departure Time of Disposition: 17:00 Departure Disposition: Home Clinical Impression: Suprapubic abdominal pain Condition: Stable Critical Care Time: No Referrals: ERNESTO CRUMP [Primary Care Provider] - Additional Instructions: drink plenty of fluids. use ibuprofen and tylenol for pain. return to ED if symptoms worsen
[2018-03-08] MEDS ORDERED: TORAdol 30 mg Injection IM ONE (16:46)
[2018-03-08 17:36] VITALS: BP 118/68; PULSE 76; O2SAT 97
== END 2018-03-08 17:32 | disposition home or self-care (01) ==
LOC: ED 15:27
DX: R10.9 Unspecified abdominal pain (principal); R30.0 Dysuria; M54.5 Low back pain
CPT/HCPCS: 81001; 84703; 87086; 99283

== ENCOUNTER 2018-03-09 13:37 | Emergency (ER) | payer OTHER ==
[2018-03-09] MEDS ORDERED: Sodium Chloride 0.9% 1000 ML 1,000 ML IV STA (14:06)
[2018-03-09] MEDS ORDERED: TORAdol 30 mg Injection IV ONE (14:06)
[2018-03-09] MEDS ORDERED: TORAdol 30 mg Injection ONE (14:17)
[2018-03-09] MEDS ORDERED: Sodium Chloride 0.9% 1000 ML 1,000 ML ONE (14:17)
--- NOTE | 2018-03-09 14:19 | ERPHSYRPT ---
- History of Present Illness Time Seen by Provider: 03/09/18 14:02 Historian: patient Exam Limitations: clinical condition Patient Subjective Stated Complaint: Pt c/o left side abdominal pain x4 days. She was seen in the ER yesterday and had a urine test done and then was discharged home. She said the pain continued to get worse today. C/o nausea but no vomiting. Denies diarrhea. She also states that she has a knot where her belly button was pierced and she squeezed pus out of it. She also states she missed her period in January and has burning when she urinates. Triage Nursing Assessment: Pt alert and oriented x3. skin pink warm and dry. afebrile. bowel sounds hypoactive x4. abdomen soft and tender with palpation Physician History: PATIENT WITH A HISTORY OF KIDNEY STONES HAS LEFT SIDED ABDOMINAL PAIN RADIATES TO FLANK OVER 4 DAYS ASSOCIATED WITH DISCOMFORT UPON URINATION. DENIES FEVER, CHILLS, NAUSEA, EMESIS OR DIARRHEA. Timing/Duration: day(s) Activities at Onset: none Quality: throbbing Abdominal Pain Onset Location: LLQ Pain Radiation: flank Severity of Pain-Max: moderate Severity of Pain-Current: moderate Modifying Factors: Improves With: urinating, other (NO RELIEF AFTER ) Previous symptoms: same symptoms as today Allergies/Adverse Reactions: hydromorphone HCl [From Dilaudid] Allergy (Severe, Verified 11/12/17 19:17) azithromycin [From Zithromax] Allergy (Intermediate, Verified 11/12/17 19:17) erythromycin base [Erythromycin Base] Allergy (Mild, Verified 11/12/17 19:17) morphine Adverse Reaction (Verified 11/12/17 19:17) Hx Tetanus, Diphtheria Vaccination/Date Given: Yes Hx Influenza Vaccination/Date Given: No Hx Pneumococcal Vaccination/Date Given: No - Review of Systems Constitutional: No Fever, No Chills Eyes: No Symptoms Ears, Nose, & Throat: No Symptoms Respiratory: No Symptoms, No Cough, No Dyspnea Cardiac: No Symptoms, No Chest Pain, No Edema, No Syncope Abdominal/Gastrointestinal: Abdominal Pain, No Nausea, No Vomiting, No Diarrhea Genitourinary Symptoms: No Dysuria Musculoskeletal: No Back Pain, No Neck Pain Skin: No Rash Neurological: No Dizziness, No Focal Weakness, No Sensory Changes Psychological: No Symptoms Endocrine: No Symptoms All Other Systems: Reviewed and Negative - Past Medical History Pertinent Past Medical History: Yes Neurological History: No Pertinent History ENT History: No Pertinent History Cardiac History: Arrhythmia, Other Respiratory History: No Pertinent History Endocrine Medical History: No Pertinent History Musculoskeletal History: No Pertinent History GI Medical History: No Pertinent History History: No Pertinent History Psycho-Social History: No Pertinent History Female Reproductive Disorders: No Pertinent History Other Medical History: kidney stones; a-fib - Past Surgical History Past Surgical History: Yes Neuro Surgical History: No Pertinent History Cardiac: No Pertinent History Respiratory: No Pertinent History Gastrointestinal: Appendectomy Genitourinary: No Pertinent History Musculoskeletal: No Pertinent History Female Surgical History: Dilation & Curettage, Section, Tubal Ligation Other Surgical History: D&C, states ultrasound and stress showed irreg. 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 tubal 12/03/15 - Social History Smoking Status: Current every day smoker How long have you smoked: 12 Exposure to second hand smoke: No Drug Use: none Patient Lives Alone: No - Female History Hx Last Menstrual Period: December 2017 Hx Now: No - Nursing Vital Signs Nursing Vital Signs: Initial Vital Signs Temperature 98.1 F 03/09/18 13:48 Pulse Rate 82 03/09/18 13:48 Respiratory Rate 16 03/09/18 13:48 Blood Pressure 113/68 03/09/18 13:48 O2 Sat by Pulse Oximetry 96 03/09/18 13:48 Pain Scale Pain Intensity 4 - Physical Exam General Appearance: no apparent distress, alert Eye Exam: PERRL/EOMI, eyes nml inspection Ears, Nose, Throat Exam: normal ENT inspection, pharynx normal, moist mucous membranes Neck Exam: normal inspection, non-tender, supple, full range of motion Respiratory Exam: normal breath sounds, lungs clear, No respiratory distress Cardiovascular Exam: regular rate/rhythm, normal heart sounds Gastrointestinal/Abdomen Exam: soft, normal bowel sounds, tenderness (LEFT LATERAL TENDERNESS), No mass Back Exam: normal inspection, normal range of motion, CVA tenderness (LEFT CVA TENDERNESS), No vertebral tenderness Extremity Exam: normal inspection, normal range of motion, pelvis stable Neurologic Exam: alert, oriented x 3, cooperative, normal mood/affect, nml cerebellar function, sensation nml, No motor deficits Skin Exam: normal color, warm, dry SpO2: 96 Oxygen Delivery: Room Air - CT Exams Abdomen/Pelvis CT Interpretation: Discussed w/radiologist (MILD FECAL STASIS, TINY CALCIFIED UTERINE FIBROID, SPLENOMEGALY) Ordered Tests: Active Orders 24 hr Category Date Time Status Clean Catch Urine Specimen STAT Care 03/09/18 14:06 Active IV Insertion STAT Care 03/09/18 14:06 Active ABDOMEN AND PELVIS W/0 CONTRAS [CT] Stat Exams 03/09/18 14:06 Taken BMP Stat Lab 03/09/18 14:06 Completed CBC W DIFF Stat Lab 03/09/18 14:06 Completed UA W/RFX UR CULTURE Stat Lab 03/09/18 14:16 Completed Urine Triage Profile Stat Lab 03/09/18 14:16 Completed Medication Summary Discontinued Medications Generic Name Dose Route Start Last Admin Trade Name Freq PRN Reason Stop Dose Admin Sodium Chloride 1,000 mls @ 999 mls/hr 03/09/18 14:06 03/09/18 14:20 Sodium Chloride 0.9% 1000 Ml IV 03/09/18 15:06 999 mls/hr .Q1H1M STA Administration Sodium Chloride Confirm 03/09/18 14:17 Sodium Chloride 0.9% 1000 Ml Administered 03/09/18 14:18 Dose 1,000 mls @ ud .ROUTE .STK-MED ONE Ketorolac Tromethamine 30 mg 03/09/18 14:06 03/09/18 14:20 Toradol 30 Mg Injection IV 03/09/18 14:07 30 mg STAT ONE Administration Ketorolac Tromethamine Confirm 03/09/18 14:17 Toradol 30 Mg Injection Administered 03/09/18 14:18 Dose 30 mg .ROUTE .STK-MED ONE Lab/Rad Data: Laboratory Result Diagrams 03/09/18 14:06 03/09/18 14:06 Laboratory Results 03/09/18 03/09/18 03/09/18 Range/Units 14:16 14:16 14:06 WBC (4.0-10.5) K/mm3 RBC (4.1-5.4) M/mm3 Hgb (12.0-16.0) gm/dl Hct (35-47) % MCV (78-100) fl MCH (26-32) pg MCHC (32-36) g/dl RDW (11.5-14.0) % Plt Count (150-450) K/mm3 MPV (6-9.5) fl Gran % (36.0-66.0) % Eos # (Auto) (0-0.5) Absolute Lymphs (auto) (1.0-4.6) Absolute Monos (auto) (0.0-1.3) Lymphocytes % (24.0-44.0) % Monocytes % (0.0-12.0) % Eosinophils % (0.00-5.0) % Basophils % (0.0-0.4) % Absolute Granulocytes (1.4-6.9) Basophils # (0-0.4) Sodium 139 (137-145) mmol/L Potassium 3.6 (3.5-5.1) mmol/L Chloride 107 (98-107) mmol/L Carbon Dioxide 20 L (22-30) mmol/L Anion Gap 16.2 H (5-15) MEQ/L BUN 11 (7-17) mg/dL Creatinine 0.58 (0.52-1.04) mg/dL Estimated GFR > 60.0 ML/MIN Glucose 113 H (74-106) mg/dL Calcium 9.6 (8.4-10.2) mg/dL Urine Color YELLOW (YELLOW) Urine Appearance SLIGHTLY CLOUDY (CLEAR) Urine pH 7.0 (5-6) Ur Specific [place] 1.009 (1.005-1.025) Urine Protein NEGATIVE (Negative) Urine Ketones NEGATIVE (NEGATIVE) Urine Blood NEGATIVE (0-5) Thang/ul Urine Nitrite NEGATIVE (NEGATIVE) Urine Bilirubin NEGATIVE (NEGATIVE) Urine Urobilinogen NEGATIVE (0-1) mg/dL Ur Leukocyte Esterase NEGATIVE (NEGATIVE) Urine WBC (Auto) 0-2 (0-5) /HPF U Epithel Cells (Auto) RARE (FEW) /HPF Urine Bacteria (Auto) RARE (NEGATIVE) /HPF Urine Mucus (Auto) SLIGHT (NEGATIVE) /HPF Urine Culture Reflexed NO (NO) Urine Glucose NEGATIVE (NEGATIVE) mg/dL Urine Opiates Level NEGATIVE (NEGATIVE) Ur Methadone NEGATIVE (NEGATIVE) Urine Barbiturates NEGATIVE (NEGATIVE) Ur Phencyclidine (PCP) NEGATIVE (NEGATIVE) Urine Amphetamine NEGATIVE (NEGATIVE) U Benzodiazepine Level NEGATIVE (NEGATIVE) Urine Cocaine NEGATIVE (NEGATIVE) Urine Marijuana (THC) NEGATIVE (NEGATIVE) 03/09/18 Range/Units 14:06 WBC 6.1 (4.0-10.5) K/mm3 RBC 4.88 (4.1-5.4) M/mm3 Hgb 13.6 (12.0-16.0) gm/dl Hct 41.7 (35-47) % MCV 85.5 (78-100) fl MCH 27.9 (26-32) pg MCHC 32.6 (32-36) g/dl RDW 14.9 H (11.5-14.0) % Plt Count 280 (150-450) K/mm3 MPV 10.2 H (6-9.5) fl Gran % 57.6 (36.0-66.0) % Eos # (Auto) 0.07 (0-0.5) Absolute Lymphs (auto) 2.19 (1.0-4.6) Absolute Monos (auto) 0.33 (0.0-1.3) Lymphocytes % 35.7 (24.0-44.0) % Monocytes % 5.4 (0.0-12.0) % Eosinophils % 1.1 (0.00-5.0) % Basophils % 0.2 (0.0-0.4) % Absolute Granulocytes 3.54 (1.4-6.9) Basophils # 0.01 (0-0.4) Sodium (137-145) mmol/L Potassium (3.5-5.1) mmol/L Chloride (98-107) mmol/L Carbon Dioxide (22-30) mmol/L Anion Gap (5-15) MEQ/L BUN (7-17) mg/dL Creatinine (0.52-1.04) mg/dL Estimated GFR ML/MIN Glucose (74-106) mg/dL Calcium (8.4-10.2) mg/dL Urine Color (YELLOW) Urine Appearance (CLEAR) Urine pH (5-6) Ur Specific [place] (1.005-1.025) Urine Protein (Negative) Urine Ketones (NEGATIVE) Urine Blood (0-5) Thang/ul Urine Nitrite (NEGATIVE) Urine Bilirubin (NEGATIVE) Urine Urobilinogen (0-1) mg/dL Ur Leukocyte Esterase (NEGATIVE) Urine WBC (Auto) (0-5) /HPF U Epithel Cells (Auto) (FEW) /HPF Urine Bacteria (Auto) (NEGATIVE) /HPF Urine Mucus (Auto) (NEGATIVE) /HPF Urine Culture Reflexed (NO) Urine Glucose (NEGATIVE) mg/dL Urine Opiates Level (NEGATIVE) Ur Methadone (NEGATIVE) Urine Barbiturates (NEGATIVE) Ur Phencyclidine (PCP) (NEGATIVE) Urine Amphetamine (NEGATIVE) U Benzodiazepine Level (NEGATIVE) Urine Cocaine (NEGATIVE) Urine Marijuana (THC) (NEGATIVE) - Progress Progress Note: 03/09/18 14:24 IV NORMAL SALINE 1000MG/HR, NEG PREG URINE ON 03/08/2018, TORADOL 30MG IV, ALL LABS REVIEWED AND ARE NORMAL 03/09/18 15:15 Counseled pt/family regarding: lab results, diagnosis, rad results - Departure Time of Disposition: 15:20 Departure Disposition: Home Clinical Impression: LEFT RENAL COLIC Condition: Stable Critical Care Time: No Referrals: ERNESTO CRUMP [Primary Care Provider] - Additional Instructions: STRAIN YOUR URINE FOR 72 HOURS. CONSULT YOUR PRIMARY CARE PROVIDER FOR FOLLOWUP IN 1 WEEK. TORADOL 10MG EVERY 6 HOURS NEEDED FOR PAIN. ZOFRAN 4MG EVERY 6 HOURS FOR NAUSEA. Prescriptions: Ketorolac Tromethamine [Toradol] 10 mg PO Q6H PRN PRN #20 tablet PRN Reason: Pain Ondansetron ODT 4 MG [Zofran Odt 4 mg] 4 mg PO Q6H PRN PRN #10 tab.rapdis PRN Reason: Nausea
[2018-03-09 14:23] LABS: BASOPHIL % 0.2 % (0.0-0.4); Basophil (Absolute #) 0.01 (0-0.4); Eosinophil % 1.1 % (0.00-5.0); Eosinophil (Absolute #) 0.07 (0-0.5); Granulocyte Absolute (ANC) 3.54 (1.4-6.9); Granulocytes % 57.6 % (36.0-66.0); Hematocrit 41.7 % (35-47); Hemoglobin 13.6 gm/dl (12.0-16.0); Lymphocyte (Absolute #) 2.19 (1.0-4.6); Lymphocytes % 35.7 % (24.0-44.0); Mean Cell Volume 85.5 fl (78-100); Mean Corpuscular Hemoglobin 27.9 pg (26-32); Mean Corpuscular Hgb Concent. 32.6 g/dl (32-36); Mean Platelet Volume 10.2 fl (6-9.5); Monocyte (Absolute #) 0.33 (0.0-1.3); Monocytes % 5.4 % (0.0-12.0); Platelet Count 280 K/mm3 (150-450); Red Blood Count 4.88 M/mm3 (4.1-5.4); Red Cell Distribution Width 14.9 % (11.5-14.0); White Blood Count 6.1 K/mm3 (4.0-10.5)
[2018-03-09 14:34] LABS: ANION GAP 16.2 MEQ/L (5-15); BLOOD UREA NITROGEN 11 mg/dL (7-17); CHLORIDE 107 mmol/L (98-107); Calcium 9.6 mg/dL (8.4-10.2); Carbon Dioxide 20 mmol/L (22-30); Creatinine 1 0.58 mg/dL (0.52-1.04); Glucose 113 mg/dL (74-106); Potassium 3.6 mmol/L (3.5-5.1); SODIUM 139 mmol/L (137-145)
[2018-03-09 14:36] LABS: Appearance SLIGHTLY CLOUDY (CLEAR); Bilirubin NEGATIVE (NEGATIVE); Blood NEGATIVE Ery/ul (0-5); Glucose NEGATIVE (NEGATIVE); Ketones NEGATIVE (NEGATIVE); Leukocyte Esterase NEGATIVE (NEGATIVE); Nitrite NEGATIVE (NEGATIVE); Protein,Urine Dip NEGATIVE (Negative); Specific Gravity 1.009 (1.005-1.025); Urobilinogen NEGATIVE mg/dL (0-1)
[2018-03-09 14:45] LABS: Amphetamine,Urine NEGATIVE (NEGATIVE); Barbiturate,Urine NEGATIVE (NEGATIVE); Benzodiazepine,Urine NEGATIVE (NEGATIVE); Cocaine,Urine NEGATIVE (NEGATIVE); Methadone,Urine NEGATIVE (NEGATIVE); Opiate,Urine NEGATIVE (NEGATIVE); PCP,Urine NEGATIVE (NEGATIVE); THC,Urine NEGATIVE (NEGATIVE)
[2018-03-09 15:04] VITALS: BP 121/71; PULSE 68
[2018-03-09 15:19] VITALS: O2SAT 96
--- NOTE | 2018-03-09 17:52 | XRAY ---
Indication: Left abdomen pain and nausea. Multiple contiguous axial images obtained through the abdomen and pelvis without contrast as ordered. Comparison: November 18, 2016. Lung bases remain clear. Heart is not enlarged. Stomach is distended with food/fluid. Noncontrasted stomach and bowel loops appear nonobstructed. Previous appendectomy. Again mild diffuse scattered colonic fecal debris. No free fluid/air. There remains a few hepatic calcified granulomas. Spleen remains enlarged today measuring 13.7 cm in greatest axial dimension. Stable tiny fundal calcified uterine fibroid. Remaining liver, gallbladder, pancreas, spleen, adrenal glands, kidneys, ureters, bladder, uterus, and aorta appear unremarkable for noncontrast exam. Osseous structures intact. Impression: 1. Again fecal stasis without obstruction. 2. Stable hepatic calcified granulomas, tiny calcified uterine fibroid, and incidental splenomegaly. 3. No new or acute intra-abdominal/pelvic abnormalities on this noncontrast exam. CTDI 21.89
== END 2018-03-09 15:34 | disposition home or self-care (01) ==
LOC: ED 13:37
DX: N23 Unspecified renal colic (principal); R10.32 Left lower quadrant pain; Z87.442 Personal history of urinary calculi
CPT/HCPCS: 36000; 36415; 74176; 80048; 80307; 81001; 85025; 96360; 96374; 99284; J1885

== ENCOUNTER 2018-06-07 14:46 | Emergency (ER) | payer OTHER ==
--- NOTE | 2018-06-07 15:15 | ERPHSYRPT ---
- History of Present Illness Time Seen by Provider: 06/07/18 15:07 Historian: patient Exam Limitations: no limitations Physician History: The patient is a 32-year-old female complaining of left-sided chest pain radiated to her left shoulder and left neck since midnight or 15 hours ago. It is a sharp pain. It is constantly getting worse. She denies shortness of breath at rest. She has been nauseated ever since she got a shot for a headache yesterday. She has no prior history of cardiac problems. She was at the doctor's office prior to arrival and was told to come to the ER to have her chest pain evaluated. Her past medical history is significant for kidney stones, pelvic inflammatory disease, and headache. Timing/Duration: yesterday, hour(s) (15), sudden, worse Activities at Onset: rest Quality: sharpness, stabbing Location: central Chest Pain Radiation: neck, arm Severity of Pain-Max: moderate Severity of Pain-Current: moderate Modifying Factors: Improves With: nothing Associated Symptoms: nausea (before the chest pain began) Prior Chest Pain/Cardiac Workup: no prior chest pain, no prior cardiac workup Nitro Today/Relief: no nitro taken today Aspirin Treatment Today: 81 mg x 4, provided by ED Allergies/Adverse Reactions: hydromorphone HCl [From Dilaudid] Allergy (Severe, Verified 06/07/18 15:26) azithromycin [From Zithromax] Allergy (Intermediate, Verified 06/07/18 15:26) erythromycin base [Erythromycin Base] Allergy (Mild, Verified 06/07/18 15:26) morphine Adverse Reaction (Verified 06/07/18 15:26) Home Medications: No Reportable Medications [No Reported Medications] 06/07/18 [History] Hx Tetanus, Diphtheria Vaccination/Date Given: Yes Hx Influenza Vaccination/Date Given: No Hx Pneumococcal Vaccination/Date Given: No - Review of Systems Constitutional: No Fever, No Chills Eyes: No Symptoms Ears, Nose, & Throat: No Symptoms Respiratory: No Cough, No Dyspnea Cardiac: Chest Pain Abdominal/Gastrointestinal: Nausea Genitourinary Symptoms: No Dysuria Musculoskeletal: No Back Pain, No Neck Pain Skin: No Rash Neurological: No Dizziness, No Focal Weakness, No Sensory Changes Psychological: No Symptoms Endocrine: No Symptoms Hematologic/Lymphatic: No Symptoms Immunological/Allergic: No Symptoms All Other Systems: Reviewed and Negative - Past Medical History Pertinent Past Medical History: Yes Neurological History: No Pertinent History ENT History: No Pertinent History Cardiac History: Arrhythmia, Other Respiratory History: No Pertinent History Endocrine Medical History: No Pertinent History Musculoskeletal History: No Pertinent History GI Medical History: No Pertinent History History: No Pertinent History Psycho-Social History: No Pertinent History Female Reproductive Disorders: No Pertinent History Other Medical History: kidney stones; a-fib - Past Surgical History Past Surgical History: Yes Neuro Surgical History: No Pertinent History Cardiac: No Pertinent History Respiratory: No Pertinent History Gastrointestinal: Appendectomy Genitourinary: No Pertinent History Musculoskeletal: No Pertinent History Female Surgical History: Dilation & Curettage, Section, Tubal Ligation Other Surgical History: D&C, states ultrasound and stress showed irreg. 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 tubal 12/03/15 - Social History Smoking Status: Current every day smoker How long have you smoked: 12 Exposure to second hand smoke: No Drug Use: none Patient Lives Alone: No - Nursing Vital Signs Nursing Vital Signs: Initial Vital Signs Temperature 99 F 06/07/18 15:01 Pulse Rate 84 06/07/18 15:01 Respiratory Rate 16 06/07/18 15:01 Blood Pressure 120/78 06/07/18 15:01 O2 Sat by Pulse Oximetry 98 06/07/18 15:01 Pain Scale Pain Intensity 9 - Physical Exam General Appearance: no apparent distress, alert Eye Exam: PERRL/EOMI, eyes nml inspection Ears, Nose, Throat Exam: normal ENT inspection, moist mucous membranes Neck Exam: normal inspection, non-tender, supple, full range of motion Respiratory Exam: chest tenderness (reproduces pain complaint) Cardiovascular Exam: regular rate/rhythm, normal heart sounds Gastrointestinal/Abdomen Exam: soft, No tenderness, No mass Pelvic Exam: not done Rectal Exam: not done Back Exam: normal inspection, No CVA tenderness, No vertebral tenderness Extremity Exam: normal inspection, normal range of motion Neurologic Exam: alert, oriented x 3, cooperative, normal mood/affect, sensation nml, No motor deficits Skin Exam: normal color, warm, dry SpO2 Interpretation: normal Oxygen Delivery: Room Air - Course EKG Interpreted by Me: RATE, Sinus Rhythm, Left [place] Deviation, NORMAL INTERVALS , NORMAL QRS, NORMAL ST-T, Other (no change comp to EKG from 11/12/17.) - Radiology Exams Chest X-ray Interpretation: Interpreted by me, Negative (neg 2V chest, comp 2V chest .) Ordered Tests: Active Orders 24 hr Category Date Time Status Compliance Spec STAT Care 06/07/18 15:25 Active Clean Catch Urine Specimen STAT Care 06/07/18 15:23 Active EKG-ER Only STAT Care 06/07/18 15:23 Active IV Insertion STAT Care 06/07/18 15:23 Active Pulse Oximetry (ED) STAT Care 06/07/18 15:23 Active CHEST 2 VIEWS (PA AND LAT) Stat Exams 06/07/18 15:24 Completed CBC W DIFF Stat Lab 06/07/18 14:55 Completed CMP Stat Lab 06/07/18 14:55 Completed D-DIMER QUANTITATION Stat Lab 06/07/18 14:55 Completed NT PRO BNP Stat Lab 06/07/18 14:55 Completed PROTIME WITH INR Stat Lab 06/07/18 14:55 Completed TROPONIN Q3H Lab 06/07/18 14:55 Completed TROPONIN Q3H Lab 06/07/18 18:30 Ordered TROPONIN Q3H Lab 06/07/18 21:30 Ordered TROPONIN Q3H Lab 06/08/18 00:30 Ordered TROPONIN Q3H Lab 06/08/18 03:30 Ordered Urine Triage Profile Stat Lab 06/07/18 16:13 Completed Medication Summary Discontinued Medications Generic Name Dose Route Start Last Admin Trade Name Freq PRN Reason Stop Dose Admin Aspirin 324 mg 06/07/18 15:23 06/07/18 16:03 Baby Aspirin 81 Mg Chew PO 06/07/18 15:24 324 mg STAT ONE Administration Aspirin Confirm 06/07/18 16:01 Baby Aspirin 81 Mg Chew Administered 06/07/18 16:02 Dose 324 mg .ROUTE .STK-MED ONE Lab/Rad Data: Laboratory Result Diagrams 06/07/18 14:55 06/07/18 14:55 Laboratory Results 06/07/18 06/07/18 06/07/18 Range/Units 16:13 14:55 14:55 WBC (4.0-10.5) K/mm3 RBC (4.1-5.4) M/mm3 Hgb (12.0-16.0) gm/dl Hct (35-47) % MCV (78-100) fl MCH (26-32) pg MCHC (32-36) g/dl RDW (11.5-14.0) % Plt Count (150-450) K/mm3 MPV (6-9.5) fl Gran % (36.0-66.0) % Eos # (Auto) (0-0.5) Absolute Lymphs (auto) (1.0-4.6) Absolute Monos (auto) (0.0-1.3) Lymphocytes % (24.0-44.0) % Monocytes % (0.0-12.0) % Eosinophils % (0.00-5.0) % Basophils % (0.0-0.4) % Absolute Granulocytes (1.4-6.9) Basophils # (0-0.4) PT 12.7 H (9.95-12.35) SECONDS INR 1.09 (0.8-3.0) D-Dimer < 215 L (215-500) ng/mL Sodium (137-145) mmol/L Potassium (3.5-5.1) mmol/L Chloride (98-107) mmol/L Carbon Dioxide (22-30) mmol/L Anion Gap (5-15) MEQ/L BUN (7-17) mg/dL Creatinine (0.52-1.04) mg/dL Estimated GFR ML/MIN Glucose (74-106) mg/dL Calcium (8.4-10.2) mg/dL Total Bilirubin (0.2-1.3) mg/dL AST (14-36) U/L ALT (0-35) U/L Alkaline Phosphatase (38-126) U/L Troponin I < 0.012 (0.000-0.034) ng/mL NT-Pro-B Natriuret Pep (0-450) pg/mL Serum Total Protein (6.3-8.2) g/dL Albumin (3.5-5.0) g/dL Urine Opiates Level NEGATIVE (NEGATIVE) Ur Methadone NEGATIVE (NEGATIVE) Urine Barbiturates NEGATIVE (NEGATIVE) Ur Phencyclidine (PCP) NEGATIVE (NEGATIVE) Urine Amphetamine NEGATIVE (NEGATIVE) U Benzodiazepine Level NEGATIVE (NEGATIVE) Urine Cocaine NEGATIVE (NEGATIVE) Urine Marijuana (THC) NEGATIVE (NEGATIVE) 06/07/18 06/07/18 Range/Units 14:55 14:55 WBC 7.1 (4.0-10.5) K/mm3 RBC 4.82 (4.1-5.4) M/mm3 Hgb 13.3 (12.0-16.0) gm/dl Hct 41.6 (35-47) % MCV 86.3 (78-100) fl MCH 27.6 (26-32) pg MCHC 32.0 (32-36) g/dl RDW 14.9 H (11.5-14.0) % Plt Count 292 (150-450) K/mm3 MPV 10.1 H (6-9.5) fl Gran % 60.2 (36.0-66.0) % Eos # (Auto) 0.05 (0-0.5) Absolute Lymphs (auto) 2.38 (1.0-4.6) Absolute Monos (auto) 0.38 (0.0-1.3) Lymphocytes % 33.6 (24.0-44.0) % Monocytes % 5.4 (0.0-12.0) % Eosinophils % 0.7 (0.00-5.0) % Basophils % 0.1 (0.0-0.4) % Absolute Granulocytes 4.26 (1.4-6.9) Basophils # 0.01 (0-0.4) PT (9.95-12.35) SECONDS INR (0.8-3.0) D-Dimer (215-500) ng/mL Sodium 140 (137-145) mmol/L Potassium 3.7 (3.5-5.1) mmol/L Chloride 107 (98-107) mmol/L Carbon Dioxide 23 (22-30) mmol/L Anion Gap 13.8 (5-15) MEQ/L BUN 14 (7-17) mg/dL Creatinine 0.64 (0.52-1.04) mg/dL Estimated GFR > 60.0 ML/MIN Glucose 105 (74-106) mg/dL Calcium 10.0 (8.4-10.2) mg/dL Total Bilirubin 0.50 (0.2-1.3) mg/dL AST 17 (14-36) U/L ALT 15 (0-35) U/L Alkaline Phosphatase 66 (38-126) U/L Troponin I (0.000-0.034) ng/mL NT-Pro-B Natriuret Pep 15.6 (0-450) pg/mL Serum Total Protein 8.3 H (6.3-8.2) g/dL Albumin 4.7 (3.5-5.0) g/dL Urine Opiates Level (NEGATIVE) Ur Methadone (NEGATIVE) Urine Barbiturates (NEGATIVE) Ur Phencyclidine (PCP) (NEGATIVE) Urine Amphetamine (NEGATIVE) U Benzodiazepine Level (NEGATIVE) Urine Cocaine (NEGATIVE) Urine Marijuana (THC) (NEGATIVE) - Progress Progress: improved Air Movement: good Progress Note: 06/07/18 16:51 The patient was given 324 mg aspirin and is now feeling better. The patient was offered naproxen prescription. The patient declined. Blood Culture(s) Obtained: No Antibiotics given: No Counseled pt/family regarding: lab results, diagnosis, rad results - Departure Time of Disposition: 16:52 Departure Disposition: Home Clinical Impression: Musculoskeletal chest pain Condition: Stable Critical Care Time: No Referrals: ERNESTO CRUMP [Primary Care Provider] - Additional Instructions: You have musculoskeletal chest pain. You were given aspirin 324 mg in the ER. Your laboratory results, EKG, and a chest x-ray were all normal. Take Tylenol, ibuprofen, or aspirin as needed. Follow-up with your primary medical doctor as needed.
[2018-06-07] MEDS ORDERED: BABY ASPIRIN 81 MG CHEW PO ONE (15:23)
[2018-06-07 15:37] LABS: INR 1.09 (0.8-3.0); PROTIME 12.7 SECONDS (9.95-12.35)
[2018-06-07 15:38] LABS: BASOPHIL % 0.1 % (0.0-0.4); Basophil (Absolute #) 0.01 (0-0.4); Eosinophil % 0.7 % (0.00-5.0); Eosinophil (Absolute #) 0.05 (0-0.5); Granulocytes % 60.2 % (36.0-66.0); Hematocrit 41.6 % (35-47); Hemoglobin 13.3 gm/dl (12.0-16.0); Lymphocyte (Absolute #) 2.38 (1.0-4.6); Lymphocytes % 33.6 % (24.0-44.0); Mean Cell Volume 86.3 fl (78-100); Mean Corpuscular Hemoglobin 27.6 pg (26-32); Mean Platelet Volume 10.1 fl (6-9.5); Monocyte (Absolute #) 0.38 (0.0-1.3); Monocytes % 5.4 % (0.0-12.0); Platelet Count 292 K/mm3 (150-450); Red Blood Count 4.82 M/mm3 (4.1-5.4); Red Cell Distribution Width 14.9 % (11.5-14.0); White Blood Count 7.1 K/mm3 (4.0-10.5)
[2018-06-07 15:49] LABS: D-DIMER QUANTITATION < 215 ng/mL (215-500)
[2018-06-07 15:51] LABS: ALBUMIN 4.7 g/dL (3.5-5.0); ALKALINE PHOSPHATASE 66 U/L (38-126); ANION GAP 13.8 MEQ/L (5-15); BLOOD UREA NITROGEN 14 mg/dL (7-17); CHLORIDE 107 mmol/L (98-107); Carbon Dioxide 23 mmol/L (22-30); Creatinine 1 0.64 mg/dL (0.52-1.04); Glucose 105 mg/dL (74-106); NT PRO BNP 15.6 pg/mL (0-450); Potassium 3.7 mmol/L (3.5-5.1); SGOT/AST 17 U/L (14-36); SGPT/ALT 15 U/L (0-35); SODIUM 140 mmol/L (137-145); Total Protein 8.3 g/dL (6.3-8.2)
[2018-06-07] MEDS ORDERED: BABY ASPIRIN 81 MG CHEW ONE (16:01)
--- NOTE | 2018-06-07 16:03 | XRAY ---
Indication: Chest pain. Comparison: October 19, 2017. PA/lateral chest again demonstrates normal heart, lungs, and bony thorax with incidental tiny right middle lobe calcified granuloma.
[2018-06-07 16:36] LABS: Amphetamine,Urine NEGATIVE (NEGATIVE); Barbiturate,Urine NEGATIVE (NEGATIVE); Benzodiazepine,Urine NEGATIVE (NEGATIVE); Cocaine,Urine NEGATIVE (NEGATIVE); Methadone,Urine NEGATIVE (NEGATIVE); Opiate,Urine NEGATIVE (NEGATIVE); PCP,Urine NEGATIVE (NEGATIVE); THC,Urine NEGATIVE (NEGATIVE)
[2018-06-07 17:13] VITALS: BP 121/70; PULSE 68; O2SAT 100
== END 2018-06-07 17:13 | disposition home or self-care (01) ==
LOC: ED 14:46
DX: R07.89 Other chest pain (principal); R11.0 Nausea
CPT/HCPCS: 36000; 36415; 71046; 80053; 80307; 83880; 84484; 85025; 85379; 85610; 93005; 93041; 99284; A9270-GY

== ENCOUNTER 2018-07-08 16:54 | Emergency (ER) | payer OTHER ==
--- NOTE | 2018-07-08 17:39 | ERPHSYRPT ---
- History of Present Illness Time Seen by Provider: 07/08/18 17:34 Source: patient Exam Limitations: no limitations Patient Subjective Stated Complaint: fever, congestion, body chills, body aches, Triage Nursing Assessment: Pt c/o of sinus congestion and pressure, fever at home, body aches, body chills, tachycardic, afebrile, states that she has been taking "a lot" of Tylenol, rates pain as a 3/10 Physician History: The patient is a 33-year-old female with her mother complaining of muscle aches and pains, nasal congestion, nasal drainage, fever, and mild diarrhea for 3 days. She received her influenza vaccination this year. She had a fever last night of 103 but no longer has a fever. She denies nausea or vomiting. She denies cough. She denies sore throat. Timing/Duration: day(s) (3), gradual onset Cough Quality/Degree: no cough Possible Cause: no prior episodes Modifying Factors: Improves With: activity Associated Symptoms: fever, nasal congestion, nasal drainage Allergies/Adverse Reactions: hydromorphone HCl [From Dilaudid] Allergy (Severe, Verified 07/08/18 17:10) azithromycin [From Zithromax] Allergy (Intermediate, Verified 07/08/18 17:10) erythromycin base [Erythromycin Base] Allergy (Mild, Verified 07/08/18 17:10) morphine Adverse Reaction (Verified 07/08/18 17:10) Home Medications: No Reportable Medications [No Reported Medications] 06/07/18 [History] Hx Tetanus, Diphtheria Vaccination/Date Given: Yes Hx Influenza Vaccination/Date Given: No Hx Pneumococcal Vaccination/Date Given: No - Review of Systems Constitutional: Fever Eyes: No Symptoms Ears, Nose, & Throat: Nose Congestion, Sinus Drainage Respiratory: No Cough, No Dyspnea Cardiac: No Chest Pain, No Edema, No Syncope Abdominal/Gastrointestinal: Diarrhea, No Abdominal Pain Genitourinary Symptoms: No Dysuria Musculoskeletal: No Back Pain, No Neck Pain Skin: No Rash Neurological: No Dizziness, No Focal Weakness, No Sensory Changes Psychological: No Symptoms Endocrine: No Symptoms Hematologic/Lymphatic: No Symptoms Immunological/Allergic: No Symptoms All Other Systems: Reviewed and Negative - Past Medical History Pertinent Past Medical History: Yes Neurological History: No Pertinent History ENT History: No Pertinent History Cardiac History: Arrhythmia, Other Respiratory History: No Pertinent History Endocrine Medical History: No Pertinent History Musculoskeletal History: No Pertinent History GI Medical History: No Pertinent History History: No Pertinent History Psycho-Social History: No Pertinent History Female Reproductive Disorders: No Pertinent History Other Medical History: kidney stones; a-fib - Past Surgical History Past Surgical History: Yes Neuro Surgical History: No Pertinent History Cardiac: No Pertinent History Respiratory: No Pertinent History Gastrointestinal: Appendectomy Genitourinary: No Pertinent History Musculoskeletal: No Pertinent History Female Surgical History: Dilation & Curettage, Section, Tubal Ligation Other Surgical History: D&C, states ultrasound and stress showed irreg. 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 tubal 12/03/15 - Social History Smoking Status: Current every day smoker How long have you smoked: 12 Exposure to second hand smoke: Yes Drug Use: none Patient Lives Alone: No - Female History Hx Last Menstrual Period: 06/24/2017 Hx Now: No (tubal) - Nursing Vital Signs Nursing Vital Signs: Initial Vital Signs Temperature 98.0 F 07/08/18 16:59 Pulse Rate 120 H 07/08/18 16:59 Blood Pressure 124/82 07/08/18 16:59 O2 Sat by Pulse Oximetry 97 07/08/18 16:59 Pain Scale Pain Intensity 2 - Physical Exam General Appearance: no apparent distress, alert Eye Exam: PERRL/EOMI, eyes nml inspection Ears, Nose, Throat Exam: normal ENT inspection, TMs normal, pharynx normal, moist mucous membranes Neck Exam: normal inspection, non-tender, supple, full range of motion Respiratory Exam: normal breath sounds, lungs clear, No respiratory distress Cardiovascular Exam: regular rate/rhythm, normal heart sounds Gastrointestinal/Abdomen Exam: soft, No tenderness Pelvic Exam: not done Rectal Exam: not done Back Exam: normal inspection, No CVA tenderness, No vertebral tenderness Extremity Exam: normal inspection, normal range of motion SpO2 Interpretation: normal SpO2: 97 O2 Delivery: Room Air Ordered Tests: Active Orders 24 hr Category Date Time Status IV Insertion STAT Care 07/08/18 17:42 Active BMP Stat Lab 07/08/18 17:45 Completed CBC W DIFF Stat Lab 07/08/18 17:45 Completed Lactic Acid Stat Lab 07/08/18 17:55 Completed Medication Summary Discontinued Medications Generic Name Dose Route Start Last Admin Trade Name Lata PRN Reason Stop Dose Admin Sodium Chloride 1,000 mls @ 999 mls/hr 07/08/18 17:42 07/08/18 18:01 Sodium Chloride 0.9% 1000 Ml IV 07/08/18 18:42 999 mls/hr .Q1H1M STA Administration Sodium Chloride Confirm 07/08/18 17:58 Sodium Chloride 0.9% 1000 Ml Administered 07/08/18 17:59 Dose 1,000 mls @ ud .ROUTE .STK-MED ONE Ketorolac Tromethamine 30 mg 07/08/18 17:43 07/08/18 18:01 Toradol 30 Mg Injection IV 07/08/18 17:44 30 mg STAT ONE Administration Ketorolac Tromethamine Confirm 07/08/18 17:58 Toradol 30 Mg Injection Administered 07/08/18 17:59 Dose 30 mg .ROUTE .STK-MED ONE Lab/Rad Data: Laboratory Result Diagrams 07/08/18 17:45 07/08/18 17:45 Laboratory Results 07/08/18 07/08/18 07/08/18 Range/Units 17:55 17:45 17:45 WBC 6.0 (4.0-10.5) K/mm3 RBC 4.86 (4.1-5.4) M/mm3 Hgb 13.2 (12.0-16.0) gm/dl Hct 42.1 (35-47) % MCV 86.6 (78-100) fl MCH 27.2 (26-32) pg MCHC 31.4 L (32-36) g/dl RDW 15.3 H (11.5-14.0) % Plt Count 263 (150-450) K/mm3 MPV 10.2 H (6-9.5) fl Gran % 60.0 (36.0-66.0) % Eos # (Auto) 0.06 (0-0.5) Absolute Lymphs (auto) 1.82 (1.0-4.6) Absolute Monos (auto) 0.51 (0.0-1.3) Lymphocytes % 30.3 (24.0-44.0) % Monocytes % 8.5 (0.0-12.0) % Eosinophils % 1.0 (0.00-5.0) % Basophils % 0.2 (0.0-0.4) % Absolute Granulocytes 3.60 (1.4-6.9) Basophils # 0.01 (0-0.4) Sodium 143 (137-145) mmol/L Potassium 3.6 (3.5-5.1) mmol/L Chloride 109 H (98-107) mmol/L Carbon Dioxide 23 (22-30) mmol/L Anion Gap 14.8 (5-15) MEQ/L BUN 11 (7-17) mg/dL Creatinine 0.65 (0.52-1.04) mg/dL Estimated GFR > 60.0 ML/MIN Glucose 96 (74-106) mg/dL Lactic Acid 1.8 (0.4-2.0) Calcium 9.6 (8.4-10.2) mg/dL - Progress Progress: re-examined, unchanged Air Movement: good Blood Culture(s) Obtained: No Antibiotics given: No - Departure Time of Disposition: 19:01 Departure Disposition: Home Clinical Impression: Nasal congestion, Myalgia Condition: Stable Critical Care Time: No Referrals: ERNESTO CRUMP [Primary Care Provider] - Additional Instructions: You have nasal congestion and muscle aches. You were given Toradol 30 mg and fluids by IV in the ER. Use Afrin OTC as directed nasally for relief of nasal congestion. Follow-up with your primary medical doctor as needed.
[2018-07-08] MEDS ORDERED: Sodium Chloride 0.9% 1000 ML 1,000 ML IV STA (17:42)
[2018-07-08] MEDS ORDERED: TORAdol 30 mg Injection IV ONE (17:43)
[2018-07-08] MEDS ORDERED: Sodium Chloride 0.9% 1000 ML 1,000 ML ONE (17:58)
[2018-07-08] MEDS ORDERED: TORAdol 30 mg Injection ONE (17:58)
[2018-07-08 18:09] LABS: BASOPHIL % 0.2 % (0.0-0.4); Basophil (Absolute #) 0.01 (0-0.4); Eosinophil (Absolute #) 0.06 (0-0.5); Hematocrit 42.1 % (35-47); Hemoglobin 13.2 gm/dl (12.0-16.0); Lymphocyte (Absolute #) 1.82 (1.0-4.6); Lymphocytes % 30.3 % (24.0-44.0); Mean Cell Volume 86.6 fl (78-100); Mean Corpuscular Hemoglobin 27.2 pg (26-32); Mean Corpuscular Hgb Concent. 31.4 g/dl (32-36); Mean Platelet Volume 10.2 fl (6-9.5); Monocyte (Absolute #) 0.51 (0.0-1.3); Monocytes % 8.5 % (0.0-12.0); Platelet Count 263 K/mm3 (150-450); Red Blood Count 4.86 M/mm3 (4.1-5.4); Red Cell Distribution Width 15.3 % (11.5-14.0)
[2018-07-08 18:27] LABS: ANION GAP 14.8 MEQ/L (5-15); BLOOD UREA NITROGEN 11 mg/dL (7-17); CHLORIDE 109 mmol/L (98-107); Calcium 9.6 mg/dL (8.4-10.2); Carbon Dioxide 23 mmol/L (22-30); Creatinine 1 0.65 mg/dL (0.52-1.04); Glucose 96 mg/dL (74-106); Potassium 3.6 mmol/L (3.5-5.1); SODIUM 143 mmol/L (137-145)
[2018-07-08 19:04] LABS: INFLUENZA A NEGATIVE (NEGATIVE)
[2018-07-08 19:05] LABS: INFLUENZA B NEGATIVE (NEGATIVE); RESPIRATORY SYNCTIAL VIRUS NEGATIVE (Negative)
[2018-07-08 19:12] VITALS: BP 120/71; PULSE 65; O2SAT 99
== END 2018-07-08 19:19 | disposition home or self-care (01) ==
LOC: ED 16:54
DX: R09.81 Nasal congestion (principal); M79.10 Myalgia, unspecified site
CPT/HCPCS: 36415; 80048; 83605; 85025; 87631; 96360; 96374; 99284; J1885

== ENCOUNTER 2018-07-14 19:57 | Emergency (ER) | payer OTHER ==
[2018-07-14] MEDS ORDERED: Zofran 4 MG/2 ML VIAL IV STA (20:12)
[2018-07-14] MEDS ORDERED: Sodium Chloride 0.9% 1000 ML 1,000 ML IV STA (20:12)
--- NOTE | 2018-07-14 20:12 | ERPHSYRPT ---
- History of Present Illness Time Seen by Provider: 07/14/18 20:07 Source: patient, family Exam Limitations: no limitations Physician History: pts child has the flu and is being treated but now pt , a 33 yr old female has cough, weakness , myalgias fever adn flu symptoms; no abd pain or urinary symptoms or vag symptoms; abd is nontender; chest has some rhonchi , no rash or meningismus Timing/Duration: yesterday Cough Quality/Degree: productive cough Possible Cause: no prior episodes Modifying Factors: Improves With: nothing Associated Symptoms: fever, cough, headache, muscle aches, sore throat Allergies/Adverse Reactions: hydromorphone HCl [From Dilaudid] Allergy (Severe, Verified 07/08/18 17:10) azithromycin [From Zithromax] Allergy (Intermediate, Verified 07/08/18 17:10) erythromycin base [Erythromycin Base] Allergy (Mild, Verified 07/08/18 17:10) morphine Adverse Reaction (Verified 07/08/18 17:10) Hx Tetanus, Diphtheria Vaccination/Date Given: Yes Hx Influenza Vaccination/Date Given: No Hx Pneumococcal Vaccination/Date Given: No - Review of Systems Constitutional: Fever, Fatigue, Malaise, Weakness, No Chills Eyes: No Symptoms Ears, Nose, & Throat: Nose Congestion Respiratory: Cough, Wheezing, No Dyspnea Cardiac: No Chest Pain, No Edema, No Syncope Abdominal/Gastrointestinal: Nausea, No Abdominal Pain, No Vomiting, No Diarrhea Genitourinary Symptoms: No Dysuria Musculoskeletal: No Back Pain, No Neck Pain Skin: No Rash Neurological: No Dizziness, No Focal Weakness, No Sensory Changes Psychological: No Symptoms Endocrine: No Symptoms All Other Systems: Reviewed and Negative - Past Medical History Pertinent Past Medical History: Yes Neurological History: No Pertinent History ENT History: No Pertinent History Cardiac History: Arrhythmia, Other Respiratory History: No Pertinent History Endocrine Medical History: No Pertinent History Musculoskeletal History: No Pertinent History GI Medical History: No Pertinent History History: No Pertinent History Psycho-Social History: No Pertinent History Female Reproductive Disorders: No Pertinent History Other Medical History: kidney stones; a-fib - Past Surgical History Past Surgical History: Yes Neuro Surgical History: No Pertinent History Cardiac: No Pertinent History Respiratory: No Pertinent History Gastrointestinal: Appendectomy Genitourinary: No Pertinent History Musculoskeletal: No Pertinent History Female Surgical History: Dilation & Curettage, Section, Tubal Ligation Other Surgical History: D&C, states ultrasound and stress showed irreg. 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 tubal 12/03/15 - Social History Smoking Status: Current every day smoker How long have you smoked: 12 Exposure to second hand smoke: Yes Drug Use: none Patient Lives Alone: No - Nursing Vital Signs Nursing Vital Signs: Initial Vital Signs Temperature 98.4 F 07/14/18 20:04 Pulse Rate 120 H 07/14/18 20:04 Respiratory Rate 20 07/14/18 20:04 Blood Pressure 123/86 07/14/18 20:04 O2 Sat by Pulse Oximetry 98 07/14/18 20:04 Pain Scale Pain Intensity 6 - Physical Exam General Appearance: no apparent distress, alert Eye Exam: PERRL/EOMI, eyes nml inspection Ears, Nose, Throat Exam: normal ENT inspection, TMs normal, moist mucous membranes, pharyngeal erythema Neck Exam: normal inspection, non-tender, supple, full range of motion Respiratory Exam: normal breath sounds, rhonchi, wheezing, No respiratory distress Cardiovascular Exam: regular rate/rhythm, normal heart sounds Gastrointestinal/Abdomen Exam: soft, No tenderness, No distention, No mass, No guarding, No rebound Pelvic Exam: deferred Rectal Exam: deferred Back Exam: normal inspection, No CVA tenderness, No vertebral tenderness Extremity Exam: normal inspection, normal range of motion Neurologic Exam: alert, oriented x 3, cooperative, normal mood/affect, sensation nml, No motor deficits Skin Exam: normal color, warm, dry, No rash Lymphatic Exam: No adenopathy - Course Nursing assessment & vital signs reviewed: Yes - Radiology Exams Chest X-ray Interpretation: Reviewed by me (peribronchial thickening) Ordered Tests: Active Orders 24 hr Category Date Time Status IV Insertion STAT Care 07/14/18 20:12 Active Pulse Oximetry (ED) STAT Care 07/14/18 20:12 Active CHEST 2 VIEWS (PA AND LAT) Stat Exams 07/14/18 20:13 Taken CBC W DIFF Stat Lab 07/14/18 20:30 Completed CMP Stat Lab 07/14/18 20:30 Completed HCG QUALITATIVE,SERUM Stat Lab 07/14/18 20:30 Completed Respiratory Nebulizer STAT RT 07/14/18 20:15 Completed Respiratory Therapy Assessment DAILY RT 07/14/18 21:02 Completed Medication Summary Discontinued Medications Generic Name Dose Route Start Last Admin Trade Name Lata PRN Reason Stop Dose Admin Albuterol/Ipratropium 3 ml 07/14/18 20:15 07/14/18 20:58 Duoneb 0.5-3 Mg/3 Ml Neb IH 07/14/18 20:16 3 ml STAT ONE Administration Albuterol/Ipratropium Confirm 07/14/18 20:54 Duoneb 0.5-3 Mg/3 Ml Neb Administered 07/14/18 20:55 Dose 3 ml IH .STK-MED ONE Amoxicillin/Clavulanate Potassium 400 mg 07/14/18 22:18 07/14/18 22:29 Augmentin 400 Mg/5 Ml PO 07/14/18 22:19 400 mg STAT ONE Administration Amoxicillin/Clavulanate Potassium Confirm 07/14/18 22:25 Augmentin 400 Mg/5 Ml Administered 07/14/18 22:26 Dose 400 mg .ROUTE .STK-MED ONE Sodium Chloride 1,000 mls @ 999 mls/hr 07/14/18 20:12 07/14/18 20:36 Sodium Chloride 0.9% 1000 Ml IV 07/14/18 21:12 999 mls/hr .Q1H1M STA Administration Sodium Chloride Confirm 07/14/18 20:19 Sodium Chloride 0.9% 1000 Ml Administered 07/14/18 20:20 Dose 1,000 mls @ ud .ROUTE .STK-MED ONE Ondansetron HCl 4 mg 07/14/18 20:12 07/14/18 20:36 Zofran 4 Mg/2 Ml Vial IV 07/14/18 20:13 4 mg STAT STA Administration Ondansetron HCl Confirm 07/14/18 20:18 Zofran 4 Mg/2 Ml Vial Administered 07/14/18 20:19 Dose 4 mg .ROUTE .STK-MED ONE Lab/Rad Data: Laboratory Result Diagrams 07/14/18 20:30 07/14/18 20:30 Laboratory Results 07/14/18 07/14/18 07/14/18 Range/Units 20:45 20:30 20:30 WBC (4.0-10.5) K/mm3 RBC (4.1-5.4) M/mm3 Hgb (12.0-16.0) gm/dl Hct (35-47) % MCV (78-100) fl MCH (26-32) pg MCHC (32-36) g/dl RDW (11.5-14.0) % Plt Count (150-450) K/mm3 MPV (6-9.5) fl Gran % (36.0-66.0) % Eos # (Auto) (0-0.5) Absolute Lymphs (auto) (1.0-4.6) Absolute Monos (auto) (0.0-1.3) Lymphocytes % (24.0-44.0) % Monocytes % (0.0-12.0) % Eosinophils % (0.00-5.0) % Basophils % (0.0-0.4) % Absolute Granulocytes (1.4-6.9) Basophils # (0-0.4) Sodium 140 (137-145) mmol/L Potassium 3.3 L (3.5-5.1) mmol/L Chloride 107 (98-107) mmol/L Carbon Dioxide 20 L (22-30) mmol/L Anion Gap 16.7 H (5-15) MEQ/L BUN 10 (7-17) mg/dL Creatinine 0.75 (0.52-1.04) mg/dL Estimated GFR > 60.0 ML/MIN Glucose 92 (74-106) mg/dL Calcium 10.1 (8.4-10.2) mg/dL Total Bilirubin 0.30 (0.2-1.3) mg/dL AST 15 (14-36) U/L ALT 15 (0-35) U/L Alkaline Phosphatase 62 (38-126) U/L Serum Total Protein 8.3 H (6.3-8.2) g/dL Albumin 4.6 (3.5-5.0) g/dL Serum , Qual NEGATIVE (Negative) Influenza Type A Ag NEGATIVE (NEGATIVE) Influenza Type B Ag NEGATIVE (NEGATIVE) RSV (PCR) NEGATIVE (Negative) Group A Strep Antibody NEGATIVE (NEGATIVE) 07/14/18 Range/Units 20:30 WBC 4.3 (4.0-10.5) K/mm3 RBC 4.68 (4.1-5.4) M/mm3 Hgb 12.9 (12.0-16.0) gm/dl Hct 39.8 (35-47) % MCV 85.0 (78-100) fl MCH 27.6 (26-32) pg MCHC 32.4 (32-36) g/dl RDW 14.9 H (11.5-14.0) % Plt Count 242 (150-450) K/mm3 MPV 10.4 H (6-9.5) fl Gran % 60.1 (36.0-66.0) % Eos # (Auto) 0.03 (0-0.5) Absolute Lymphs (auto) 1.09 (1.0-4.6) Absolute Monos (auto) 0.57 (0.0-1.3) Lymphocytes % 25.6 (24.0-44.0) % Monocytes % 13.4 H (0.0-12.0) % Eosinophils % 0.7 (0.00-5.0) % Basophils % 0.2 (0.0-0.4) % Absolute Granulocytes 2.56 (1.4-6.9) Basophils # 0.01 (0-0.4) Sodium (137-145) mmol/L Potassium (3.5-5.1) mmol/L Chloride (98-107) mmol/L Carbon Dioxide (22-30) mmol/L Anion Gap (5-15) MEQ/L BUN (7-17) mg/dL Creatinine (0.52-1.04) mg/dL Estimated GFR ML/MIN Glucose (74-106) mg/dL Calcium (8.4-10.2) mg/dL Total Bilirubin (0.2-1.3) mg/dL AST (14-36) U/L ALT (0-35) U/L Alkaline Phosphatase (38-126) U/L Serum Total Protein (6.3-8.2) g/dL Albumin (3.5-5.0) g/dL Serum , Qual (Negative) Influenza Type A Ag (NEGATIVE) Influenza Type B Ag (NEGATIVE) RSV (PCR) (Negative) Group A Strep Antibody (NEGATIVE) - Progress Progress: improved, re-examined Air Movement: good Progress Note: 07/14/18 22:12 discussed possible admit with pt to begin ab for early pneumonia, and pt declines prefering to try outpt tx with ab first and return if not improving; 07/14/18 23:07 pt olga PO challenge in ER , and walking challenge without desat and HR after IVF stays under 100 07/14/18 23:08 Blood Culture(s) Obtained: No Antibiotics given: Yes Counseled pt/family regarding: lab results, diagnosis, need for follow-up, rad results, smoking cessation - Departure Time of Disposition: 22:26 Departure Disposition: Home Clinical Impression: Walking pneumonia Condition: Good Critical Care Time: No Referrals: ERNESTO CRUMP [Primary Care Provider] - Instructions: Quitting Smoking, Community-Acquired Pneumonia, Adult (DC) Additional Instructions: followup with your this week, return meantime if short of breath, dizzy , vomiting or other concerns , consider quitting smoking Prescriptions: Amox Tr/Potass Clav. 400 mg [Augmentin 400 MG/5 ML] 400 mg PO TID #150 bottle
[2018-07-14 20:15] VITALS: BP 123/86
[2018-07-14] MEDS ORDERED: DUONEB 0.5-3 MG/3 ml Neb IH ONE ×2 (20:15→20:54)
[2018-07-14] MEDS ORDERED: Zofran 4 MG/2 ML VIAL ONE (20:18)
[2018-07-14] MEDS ORDERED: Sodium Chloride 0.9% 1000 ML 1,000 ML ONE (20:19)
[2018-07-14 20:50] LABS: BASOPHIL % 0.2 % (0.0-0.4); Basophil (Absolute #) 0.01 (0-0.4); Eosinophil % 0.7 % (0.00-5.0); Eosinophil (Absolute #) 0.03 (0-0.5); Granulocyte Absolute (ANC) 2.56 (1.4-6.9); Granulocytes % 60.1 % (36.0-66.0); Hematocrit 39.8 % (35-47); Hemoglobin 12.9 gm/dl (12.0-16.0); Lymphocyte (Absolute #) 1.09 (1.0-4.6); Lymphocytes % 25.6 % (24.0-44.0); Mean Corpuscular Hemoglobin 27.6 pg (26-32); Mean Corpuscular Hgb Concent. 32.4 g/dl (32-36); Mean Platelet Volume 10.4 fl (6-9.5); Monocyte (Absolute #) 0.57 (0.0-1.3); Monocytes % 13.4 % (0.0-12.0); Platelet Count 242 K/mm3 (150-450); Red Blood Count 4.68 M/mm3 (4.1-5.4); Red Cell Distribution Width 14.9 % (11.5-14.0); White Blood Count 4.3 K/mm3 (4.0-10.5)
[2018-07-14 21:06] LABS: ALBUMIN 4.6 g/dL (3.5-5.0); ALKALINE PHOSPHATASE 62 U/L (38-126); ANION GAP 16.7 MEQ/L (5-15); BLOOD UREA NITROGEN 10 mg/dL (7-17); CHLORIDE 107 mmol/L (98-107); Calcium 10.1 mg/dL (8.4-10.2); Carbon Dioxide 20 mmol/L (22-30); Creatinine 1 0.75 mg/dL (0.52-1.04); Glucose 92 mg/dL (74-106); Potassium 3.3 mmol/L (3.5-5.1); SGOT/AST 15 U/L (14-36); SGPT/ALT 15 U/L (0-35); SODIUM 140 mmol/L (137-145); Total Protein 8.3 g/dL (6.3-8.2)
[2018-07-14 21:59] LABS: Group A Strep NEGATIVE (NEGATIVE); INFLUENZA A NEGATIVE (NEGATIVE); INFLUENZA B NEGATIVE (NEGATIVE); RESPIRATORY SYNCTIAL VIRUS NEGATIVE (Negative)
[2018-07-14] MEDS ORDERED: Augmentin 400 MG/5 ML PO ONE (22:18)
[2018-07-14] MEDS ORDERED: Augmentin 400 MG/5 ML ONE (22:25)
[2018-07-14 23:03] VITALS: PULSE 90; O2SAT 98
--- NOTE | 2018-07-15 08:10 | XRAY ---
Indication: Fever and cough. Comparison: June 07, 2018. PA/lateral chest again demonstrates normal heart, lungs, and bony thorax.
== END 2018-07-14 23:19 | disposition home or self-care (01) ==
LOC: ED 19:57
DX: J18.8 Other pneumonia, unspecified organism (principal); R53.81 Other malaise; R53.1 Weakness
CPT/HCPCS: 36000; 36415; 71046; 80053; 81025; 85025; 87631; 87651; 94640; 96360; 96374; 99284; J2405; A9270-GY

== ENCOUNTER 2018-08-29 16:14 | Emergency (ER) | payer OTHER ==
[2018-08-29] MEDS ORDERED: Sodium Chloride 0.9% 1000 ML 1,000 ML IV STA (16:44)
--- NOTE | 2018-08-29 16:53 | ERPHSYRPT ---
- History of Present Illness Time Seen by Provider: 08/29/18 16:22 Source: patient Exam Limitations: no limitations Patient Subjective Stated Complaint: pt was found unresponsive by a friend in her home, she states she does not remember passing out, she has done this in the past, she states she feels week and dizzy now, pt denies any recent illness, Triage Nursing Assessment: pt arrived per ambulance alert, and texting on cell phone, resp easy, skin w/d/p. no edema Physician History: Pt started c/o being dizzy around 13:00 PM, she was sitting on the couch, talking to her mother on the phone, but she was alone, and passed out. She denies any pain, headaches or injuries, only neck soreness, she denies focal weakness, numbness, no slurred speech, visual changes, no loss of bladder or bowel control, no chest pain, SOB, nausea, vomiting, fever, chills, cold symptoms, cough, other complaints. She is not sure how long she was unconscious , woke up, when the police was there. Witnessed: unwitnessed Prior Episodes: single episode today Timing/Duration: hour(s) (1) Precipitating Factors: none Context: standing Loss of Consciousness: prolonged (minutes) Charcter of event(s): collapsed Allergies/Adverse Reactions: hydromorphone HCl [From Dilaudid] Allergy (Severe, Verified 08/29/18 16:26) azithromycin [From Zithromax] Allergy (Intermediate, Verified 08/29/18 16:26) erythromycin base [Erythromycin Base] Allergy (Mild, Verified 08/29/18 16:26) morphine Adverse Reaction (Verified 08/29/18 16:26) Home Medications: No Reportable Medications [No Reported Medications] 08/29/18 [History] Hx Tetanus, Diphtheria Vaccination/Date Given: Yes Hx Influenza Vaccination/Date Given: Yes Hx Pneumococcal Vaccination/Date Given: No Immunizations Up to Date: Yes - Past Medical History Pertinent Past Medical History: Yes Neurological History: No Pertinent History ENT History: No Pertinent History Cardiac History: Arrhythmia, Other Respiratory History: No Pertinent History Endocrine Medical History: No Pertinent History Musculoskeletal History: No Pertinent History GI Medical History: No Pertinent History History: No Pertinent History Psycho-Social History: No Pertinent History Female Reproductive Disorders: No Pertinent History Other Medical History: kidney stones; a-fib - Past Surgical History Past Surgical History: Yes Neuro Surgical History: No Pertinent History Cardiac: No Pertinent History Respiratory: No Pertinent History Gastrointestinal: Appendectomy Genitourinary: No Pertinent History Musculoskeletal: No Pertinent History Female Surgical History: Dilation & Curettage, Section, Tubal Ligation Other Surgical History: D&C, states ultrasound and stress showed irreg. 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 tubal 12/03/15 - Social History Smoking Status: Current every day smoker How long have you smoked: 12 Exposure to second hand smoke: Yes Drug Use: none Patient Lives Alone: No - Female History Hx Last Menstrual Period: july Hx Now: No - Review of Systems Constitutional: No Symptoms Eyes: No Symptoms Ears, Nose, & Throat: No Symptoms Respiratory: No Symptoms Cardiac: No Symptoms Abdominal/Gastrointestinal: No Symptoms Genitourinary Symptoms: No Symptoms Musculoskeletal: No Symptoms Skin: No Symptoms Neurological: Dizziness All Other Systems: Reviewed and Negative Physical Exam - Nursing Vital Signs Nursing Vital Signs: Initial Vital Signs Temperature 97.2 F 08/29/18 16:20 Pulse Rate 99 H 08/29/18 16:20 Respiratory Rate 16 08/29/18 16:20 Blood Pressure 126/81 08/29/18 16:20 O2 Sat by Pulse Oximetry 98 08/29/18 16:20 Pain Scale Pain Intensity 1 - Branden Coma Scale Best Eye Response (Keene): (4) open spontaneously Best Verbal Response (Branden): (5) oriented Best Motor Response (Branden): (6) obeys commands Keene Total: 15 - Physical Exam General Appearance: no apparent distress Eye Exam: bilateral eye: PERRL, EOMI Ears, Nose, Throat Exam: normal ENT inspection, pharynx normal, moist mucous membranes Neck Exam: normal inspection, non-tender, supple, No carotid bruit, No JVD Respiratory: normal breath sounds, lungs clear, airway intact, No chest tenderness Cardiovascular: regular rate/rhythm, normal heart sounds, normal peripheral pulses, capillary refill <2 sec, No murmur Gastrointestinal: soft, normal bowel sounds, No tenderness, No distention, No mass, No guarding, No ecchymosis, No pulsatile mass, No rebound, No hernia, No organomegaly Back Exam: normal inspection, No CVA tenderness, No vertebral tenderness Extremity Exam: normal inspection, No calf tenderness, No pedrito's sign Peripheral Pulses: carotid (R): 3+, carotid (L): 3+, femoral (R): 3+, femoral (L ): 3+, dorsalis-pedis (R): 3+, dorsalis-pedis (L): 3+ Mental Status: alert, oriented x 3, 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 Exam: normal speech, PERRL, No abnormal gag reflex, No facial asymmetry Coordination/Gait: normal finger to nose Motor/Sensory: no motor deficit DTR: bicep (R): 2+, bicep (L): 2+, knee (R): 2+, knee (L): 2+, ankle (R): 2+, ankle (L): 2+ Skin Exam: normal color, warm, dry, No rash SpO2 Interpretation: normal SpO2: 98 O2 Delivery: Room Air - Course Nursing assessment & vital signs reviewed: Yes EKG Interpreted by Me: RATE (97/min), Left [place] Deviation, NORMAL INTERVALS, Non -specific ST Changes, Other (LaFB, repeat Ek PM: unchanged) - Radiology Exams Chest X-ray Interpretation: Interpreted by me, Negative - CT Exams Head CT Interpretation: Negative, Tele-radiologist Report Ordered Tests: Active Orders 24 hr Category Date Time Status Video Manager STAT Care 08/29/18 16:45 Active EKG-ER Only STAT Care 08/29/18 16:44 Active EKG-ER Only STAT Care 08/29/18 18:45 Active IV Insertion STAT Care 08/29/18 16:44 Active Orthostatic Vital Signs STAT Care 08/29/18 16:46 Active Pulse Oximetry (ED) STAT Care 08/29/18 16:44 Active CHEST 1 VIEW (PORTABLE) Stat Exams 08/29/18 17:12 Taken HEAD WITHOUT CONTRAST [CT] Stat Exams 08/29/18 17:04 Completed CBC W DIFF Stat Lab 08/29/18 17:25 Completed CK-Creatinine Phosphokinase Stat Lab 08/29/18 17:25 Completed CMP Stat Lab 08/29/18 17:25 Completed D-DIMER QUANTITATION Stat Lab 08/29/18 17:25 Completed ETHYL ALCOHOL Stat Lab 08/29/18 17:25 Completed HCG,QUALITATIVE URINE Stat Lab 08/29/18 17:00 Completed MAGNESIUM Stat Lab 08/29/18 17:25 Completed NT PRO BNP Stat Lab 08/29/18 17:25 Completed PROTIME WITH INR Stat Lab 08/29/18 17:25 Completed PTT Stat Lab 08/29/18 17:25 Completed TROPONIN Q3H Lab 08/29/18 17:25 Completed TROPONIN Q3H Lab 08/29/18 18:45 Ordered TROPONIN Q3H Lab 08/29/18 19:45 Ordered TROPONIN Q3H Lab 08/29/18 21:45 Ordered TROPONIN Q3H Lab 08/29/18 22:45 Ordered TROPONIN Q3H Lab 08/30/18 01:45 Ordered TROPONIN Q3H Lab 08/30/18 04:45 Ordered UA W/RFX UR CULTURE Stat Lab 08/29/18 17:00 Completed Urine Triage Profile Stat Lab 08/29/18 17:00 Completed Medication Summary Discontinued Medications Generic Name Dose Route Start Last Admin Trade Name Freq PRN Reason Stop Dose Admin Sodium Chloride 1,000 mls @ 999 mls/hr 08/29/18 16:44 08/29/18 17:04 Sodium Chloride 0.9% 1000 Ml IV 08/29/18 17:44 999 mls/hr .Q1H1M STA Administration Sodium Chloride Confirm 08/29/18 17:01 Sodium Chloride 0.9% 1000 Ml Administered 08/29/18 17:02 Dose 1,000 mls @ ud .ROUTE .STK-MED ONE Lab/Rad Data: Laboratory Result Diagrams 08/29/18 17:25 08/29/18 17:25 Laboratory Results 08/29/18 08/29/18 08/29/18 Range/Units 17:25 17:25 17:25 WBC (4.0-10.5) K/mm3 RBC (4.1-5.4) M/mm3 Hgb (12.0-16.0) gm/dl Hct (35-47) % MCV (78-100) fl MCH (26-32) pg MCHC (32-36) g/dl RDW (11.5-14.0) % Plt Count (150-450) K/mm3 MPV (6-9.5) fl Gran % (36.0-66.0) % Eos # (Auto) (0-0.5) Absolute Lymphs (auto) (1.0-4.6) Absolute Monos (auto) (0.0-1.3) Lymphocytes % (24.0-44.0) % Monocytes % (0.0-12.0) % Eosinophils % (0.00-5.0) % Basophils % (0.0-0.4) % Absolute Granulocytes (1.4-6.9) Basophils # (0-0.4) PT 11.9 (9.95-12.35) SECONDS INR 1.02 (0.8-3.0) APTT 26.7 (25.3-37.0) SECONDS D-Dimer 308 (215-500) ng/mL Sodium 140 (137-145) mmol/L Potassium 4.0 (3.5-5.1) mmol/L Chloride 110 H (98-107) mmol/L Carbon Dioxide 22 (22-30) mmol/L Anion Gap 12.6 (5-15) MEQ/L BUN 13 (7-17) mg/dL Creatinine 0.79 (0.52-1.04) mg/dL Estimated GFR > 60.0 ML/MIN Glucose 96 (74-106) mg/dL Calcium 9.6 (8.4-10.2) mg/dL Magnesium 2.0 (1.6-2.3) mg/dL Total Bilirubin 0.20 (0.2-1.3) mg/dL AST 28 (14-36) U/L ALT 30 (0-35) U/L Alkaline Phosphatase 65 (38-126) U/L Creatine Kinase 29 L (30-135) U/L Troponin I < 0.012 (0.000-0.034) ng/mL NT-Pro-B Natriuret Pep 11.2 (0-450) pg/mL Serum Total Protein 7.9 (6.3-8.2) g/dL Albumin 4.2 (3.5-5.0) g/dL Urine Color (YELLOW) Urine Appearance (CLEAR) Urine pH (5-6) Ur Specific [place] (1.005-1.025) Urine Protein (Negative) Urine Ketones (NEGATIVE) Urine Blood (0-5) Thang/ul Urine Nitrite (NEGATIVE) Urine Bilirubin (NEGATIVE) Urine Urobilinogen (0-1) mg/dL Ur Leukocyte Esterase (NEGATIVE) Urine WBC (Auto) (0-5) /HPF Urine RBC (Auto) (0-2) /HPF U Epithel Cells (Auto) (FEW) /HPF Urine Bacteria (Auto) (NEGATIVE) /HPF Urine Mucus (Auto) (NEGATIVE) /HPF Urine Culture Reflexed (NO) Urine Glucose (NEGATIVE) mg/dL Urine HCG, Qual (Negative) Urine Opiates Level (NEGATIVE) Ur Methadone (NEGATIVE) Urine Barbiturates (NEGATIVE) Ur Phencyclidine (PCP) (NEGATIVE) Urine Amphetamine (NEGATIVE) U Benzodiazepine Level (NEGATIVE) Urine Cocaine (NEGATIVE) Urine Marijuana (THC) (NEGATIVE) Ethyl Alcohol < 10 (0-10) mg/dL 08/29/18 08/29/18 08/29/18 Range/Units 17:25 17:00 17:00 WBC 8.4 (4.0-10.5) K/mm3 RBC 4.53 (4.1-5.4) M/mm3 Hgb 12.4 (12.0-16.0) gm/dl Hct 39.2 (35-47) % MCV 86.5 (78-100) fl MCH 27.4 (26-32) pg MCHC 31.6 L (32-36) g/dl RDW 15.3 H (11.5-14.0) % Plt Count 289 (150-450) K/mm3 MPV 9.8 H (6-9.5) fl Gran % 59.4 (36.0-66.0) % Eos # (Auto) 0.05 (0-0.5) Absolute Lymphs (auto) 2.66 (1.0-4.6) Absolute Monos (auto) 0.66 (0.0-1.3) Lymphocytes % 31.9 (24.0-44.0) % Monocytes % 7.9 (0.0-12.0) % Eosinophils % 0.6 (0.00-5.0) % Basophils % 0.2 (0.0-0.4) % Absolute Granulocytes 4.96 (1.4-6.9) Basophils # 0.02 (0-0.4) PT (9.95-12.35) SECONDS INR (0.8-3.0) APTT (25.3-37.0) SECONDS D-Dimer (215-500) ng/mL Sodium (137-145) mmol/L Potassium (3.5-5.1) mmol/L Chloride (98-107) mmol/L Carbon Dioxide (22-30) mmol/L Anion Gap (5-15) MEQ/L BUN (7-17) mg/dL Creatinine (0.52-1.04) mg/dL Estimated GFR ML/MIN Glucose (74-106) mg/dL Calcium (8.4-10.2) mg/dL Magnesium (1.6-2.3) mg/dL Total Bilirubin (0.2-1.3) mg/dL AST (14-36) U/L ALT (0-35) U/L Alkaline Phosphatase (38-126) U/L Creatine Kinase (30-135) U/L Troponin I (0.000-0.034) ng/mL NT-Pro-B Natriuret Pep (0-450) pg/mL Serum Total Protein (6.3-8.2) g/dL Albumin (3.5-5.0) g/dL Urine Color YELLOW (YELLOW) Urine Appearance CLOUDY (CLEAR) Urine pH 8.0 (5-6) Ur Specific [place] 1.021 (1.005-1.025) Urine Protein 30 (Negative) Urine Ketones NEGATIVE (NEGATIVE) Urine Blood NEGATIVE (0-5) Thang/ul Urine Nitrite NEGATIVE (NEGATIVE) Urine Bilirubin NEGATIVE (NEGATIVE) Urine Urobilinogen 4 (0-1) mg/dL Ur Leukocyte Esterase NEGATIVE (NEGATIVE) Urine WBC (Auto) NONE (0-5) /HPF Urine RBC (Auto) NONE (0-2) /HPF U Epithel Cells (Auto) FEW (FEW) /HPF Urine Bacteria (Auto) NONE (NEGATIVE) /HPF Urine Mucus (Auto) SLIGHT (NEGATIVE) /HPF Urine Culture Reflexed NO (NO) Urine Glucose NEGATIVE (NEGATIVE) mg/dL Urine HCG, Qual (Negative) Urine Opiates Level NEGATIVE (NEGATIVE) Ur Methadone NEGATIVE (NEGATIVE) Urine Barbiturates NEGATIVE (NEGATIVE) Ur Phencyclidine (PCP) NEGATIVE (NEGATIVE) Urine Amphetamine NEGATIVE (NEGATIVE) U Benzodiazepine Level NEGATIVE (NEGATIVE) Urine Cocaine NEGATIVE (NEGATIVE) Urine Marijuana (THC) NEGATIVE (NEGATIVE) Ethyl Alcohol (0-10) mg/dL 08/29/18 Range/Units 17:00 WBC (4.0-10.5) K/mm3 RBC (4.1-5.4) M/mm3 Hgb (12.0-16.0) gm/dl Hct (35-47) % MCV (78-100) fl MCH (26-32) pg MCHC (32-36) g/dl RDW (11.5-14.0) % Plt Count (150-450) K/mm3 MPV (6-9.5) fl Gran % (36.0-66.0) % Eos # (Auto) (0-0.5) Absolute Lymphs (auto) (1.0-4.6) Absolute Monos (auto) (0.0-1.3) Lymphocytes % (24.0-44.0) % Monocytes % (0.0-12.0) % Eosinophils % (0.00-5.0) % Basophils % (0.0-0.4) % Absolute Granulocytes (1.4-6.9) Basophils # (0-0.4) PT (9.95-12.35) SECONDS INR (0.8-3.0) APTT (25.3-37.0) SECONDS D-Dimer (215-500) ng/mL Sodium (137-145) mmol/L Potassium (3.5-5.1) mmol/L Chloride (98-107) mmol/L Carbon Dioxide (22-30) mmol/L Anion Gap (5-15) MEQ/L BUN (7-17) mg/dL Creatinine (0.52-1.04) mg/dL Estimated GFR ML/MIN Glucose (74-106) mg/dL Calcium (8.4-10.2) mg/dL Magnesium (1.6-2.3) mg/dL Total Bilirubin (0.2-1.3) mg/dL AST (14-36) U/L ALT (0-35) U/L Alkaline Phosphatase (38-126) U/L Creatine Kinase (30-135) U/L Troponin I (0.000-0.034) ng/mL NT-Pro-B Natriuret Pep (0-450) pg/mL Serum Total Protein (6.3-8.2) g/dL Albumin (3.5-5.0) g/dL Urine Color (YELLOW) Urine Appearance (CLEAR) Urine pH (5-6) Ur Specific [place] (1.005-1.025) Urine Protein (Negative) Urine Ketones (NEGATIVE) Urine Blood (0-5) Thang/ul Urine Nitrite (NEGATIVE) Urine Bilirubin (NEGATIVE) Urine Urobilinogen (0-1) mg/dL Ur Leukocyte Esterase (NEGATIVE) Urine WBC (Auto) (0-5) /HPF Urine RBC (Auto) (0-2) /HPF U Epithel Cells (Auto) (FEW) /HPF Urine Bacteria (Auto) (NEGATIVE) /HPF Urine Mucus (Auto) (NEGATIVE) /HPF Urine Culture Reflexed (NO) Urine Glucose (NEGATIVE) mg/dL Urine HCG, Qual NEGATIVE (Negative) Urine Opiates Level (NEGATIVE) Ur Methadone (NEGATIVE) Urine Barbiturates (NEGATIVE) Ur Phencyclidine (PCP) (NEGATIVE) Urine Amphetamine (NEGATIVE) U Benzodiazepine Level (NEGATIVE) Urine Cocaine (NEGATIVE) Urine Marijuana (THC) (NEGATIVE) Ethyl Alcohol (0-10) mg/dL - Progress Progress: improved Progress Note: 08/29/18 19:00 Pt improved after 1000 ml NS bolus, stable, not orthostatic or dizzy, when standing, feels better, denies chest pain, or dyspnea. We discussed her results and current condition, she is being discharged to rest x 1-2 days, drink plenty of fluids, and follow up with her physician in 2-3 days. Counseled pt/family regarding: lab results, diagnosis, need for follow-up, rad results - Departure Departure Disposition: Home Clinical Impression: Syncope Qualifiers: Syncope type: unspecified Qualified Code(s): R55 - Syncope and collapse Condition: Stable Critical Care Time: No Referrals: ERNESTO CRUMP [Primary Care Provider] - Instructions: Syncope (Fainting) (DC) Additional Instructions: Rest x 1-2 days, drink plenty of fluid, and follow up with your physician in 2- 3 days, return if severe dizziness, weakness, headaches, vomiting, chest pain, or lethargy !
[2018-08-29] MEDS ORDERED: Sodium Chloride 0.9% 1000 ML 1,000 ML ONE (17:01)
--- NOTE | 2018-08-29 17:19 | XRAY ---
Indication: Syncope. Multiple contiguous axial images obtained through the head without contrast. Comparison: March 21, 2016. Again normal appearing brain parenchyma, ventricles, and bony calvarium. Minimal mucosal thickening right maxillary sinus. Remaining visualized paranasal sinuses and mastoid air cells are clear. Impression: Again normal CT head without contrast exam. Minimal right maxillary sinus disease. CTDI 67.00
[2018-08-29 17:26] LABS: Amphetamine,Urine NEGATIVE (NEGATIVE); Barbiturate,Urine NEGATIVE (NEGATIVE); Benzodiazepine,Urine NEGATIVE (NEGATIVE); Cocaine,Urine NEGATIVE (NEGATIVE); Methadone,Urine NEGATIVE (NEGATIVE); Opiate,Urine NEGATIVE (NEGATIVE); PCP,Urine NEGATIVE (NEGATIVE); THC,Urine NEGATIVE (NEGATIVE)
[2018-08-29 17:27] LABS: BASOPHIL % 0.2 % (0.0-0.4); Basophil (Absolute #) 0.02 (0-0.4); Eosinophil % 0.6 % (0.00-5.0); Eosinophil (Absolute #) 0.05 (0-0.5); Granulocyte Absolute (ANC) 4.96 (1.4-6.9); Granulocytes % 59.4 % (36.0-66.0); Hematocrit 39.2 % (35-47); Hemoglobin 12.4 gm/dl (12.0-16.0); Lymphocyte (Absolute #) 2.66 (1.0-4.6); Lymphocytes % 31.9 % (24.0-44.0); Mean Cell Volume 86.5 fl (78-100); Mean Corpuscular Hemoglobin 27.4 pg (26-32); Mean Corpuscular Hgb Concent. 31.6 g/dl (32-36); Mean Platelet Volume 9.8 fl (6-9.5); Monocyte (Absolute #) 0.66 (0.0-1.3); Monocytes % 7.9 % (0.0-12.0); Platelet Count 289 K/mm3 (150-450); Red Blood Count 4.53 M/mm3 (4.1-5.4); Red Cell Distribution Width 15.3 % (11.5-14.0); White Blood Count 8.4 K/mm3 (4.0-10.5)
[2018-08-29 17:30] LABS: Appearance CLOUDY (CLEAR); Bilirubin NEGATIVE (NEGATIVE); Blood NEGATIVE Ery/ul (0-5); Epithelial Cells FEW /HPF (FEW); Glucose NEGATIVE (NEGATIVE); Ketones NEGATIVE (NEGATIVE); Leukocyte Esterase NEGATIVE (NEGATIVE); Mucus SLIGHT /HPF (NEGATIVE); Nitrite NEGATIVE (NEGATIVE); Protein,Urine Dip 30 (Negative); Specific Gravity 1.021 (1.005-1.025); Urobilinogen 4 mg/dL (0-1)
[2018-08-29 17:43] LABS: INR 1.02 (0.8-3.0); PROTIME 11.9 SECONDS (9.95-12.35)
[2018-08-29 17:45] LABS: PTT 26.7 SECONDS (25.3-37.0)
[2018-08-29 17:49] LABS: ALBUMIN 4.2 g/dL (3.5-5.0); ALKALINE PHOSPHATASE 65 U/L (38-126); ANION GAP 12.6 MEQ/L (5-15); BLOOD UREA NITROGEN 13 mg/dL (7-17); CHLORIDE 110 mmol/L (98-107); CK-Creatinine Phosphokinase 29 U/L (30-135); Calcium 9.6 mg/dL (8.4-10.2); Carbon Dioxide 22 mmol/L (22-30); Creatinine 1 0.79 mg/dL (0.52-1.04); Glucose 96 mg/dL (74-106); NT PRO BNP 11.2 pg/mL (0-450); SGOT/AST 28 U/L (14-36); SGPT/ALT 30 U/L (0-35); SODIUM 140 mmol/L (137-145); Total Protein 7.9 g/dL (6.3-8.2)
[2018-08-29 17:50] LABS: ETHYL ALCOHOL < 10 mg/dL (0-10)
[2018-08-29 20:11] VITALS: BP 118/78; PULSE 88; O2SAT 100
--- NOTE | 2018-08-30 08:32 | XRAY ---
Indication: Syncope. Comparison: July 14, 2018. Portable chest again demonstrates normal heart, lungs, and bony thorax.
== END 2018-08-29 20:12 | disposition home or self-care (01) ==
LOC: ED 16:14
DX: R55 Syncope and collapse (principal)
CPT/HCPCS: 36000; 36415; 70450; 71045; 80053; 80307; 81001; 82550; 83735; 83880; 84484; 84703; 85025; 85379; 85610; 85730; 93005; 93041; 96360; 99284; G0480

== ENCOUNTER 2018-10-19 21:56 | Emergency (ER) | payer OTHER ==
--- NOTE | 2018-10-19 23:12 | ERPHSYRPT ---
- History of Present Illness Time Seen by Provider: 10/19/18 22:57 Source: patient Patient Subjective Stated Complaint: pt states she noticed "milk leaking from her breasts" today. pt states she took home hcg test that came back positive. pt reports she had tubal ligation 4 years ago. Pt denies pain but has a "stretching" sensation across abd. Pt reports lmp 09/26/18 "but only lasted 2 days and they usually last 6-7 days" Triage Nursing Assessment: pink/warm/dry, resp easy, steady gait, a&ox4, abd soft/non-tender Physician History: C/o milk discharge from nipples for few days, pelvic discomfort, denies pain, cramps, vaginal bleeding, discharge, nausea, vomiting, fever, other complaints. She had tubal ligation 4 years ago, did home test and it was positive. Timing/Duration: day(s) (2) Activites at Onset: none Quality: aching Onset Location: suprapubic Pain Radiation: none Severity of Pain-Max: mild Severity of Pain-Current: mild Prior abdominal problems: none Sexual intercourse history: single partner Modifying Factors: Improves With: nothing Associated Symptoms: denies symptoms Allergies/Adverse Reactions: hydromorphone HCl [From Dilaudid] Allergy (Severe, Verified 08/29/18 16:26) azithromycin [From Zithromax] Allergy (Intermediate, Verified 08/29/18 16:26) erythromycin base [Erythromycin Base] Allergy (Mild, Verified 08/29/18 16:26) morphine Adverse Reaction (Verified 08/29/18 16:26) Home Medications: No Reportable Medications [No Reported Medications] 08/29/18 [History] Hx Tetanus, Diphtheria Vaccination/Date Given: No Hx Influenza Vaccination/Date Given: No Hx Pneumococcal Vaccination/Date Given: No - Review of Systems Constitutional: No Symptoms Ears, Nose, & Throat: No Symptoms Respiratory: No Symptoms Cardiac: No Symptoms Abdominal/Gastrointestinal: No Symptoms Genitourinary Symptoms: Other (suprapubic pain, nipple milking) Skin: No Symptoms Neurological: No Symptoms - Past Medical History Pertinent Past Medical History: Yes Neurological History: No Pertinent History ENT History: No Pertinent History Cardiac History: Arrhythmia, Other Respiratory History: No Pertinent History Endocrine Medical History: No Pertinent History Musculoskeletal History: No Pertinent History GI Medical History: No Pertinent History History: No Pertinent History Psycho-Social History: No Pertinent History Female Reproductive Disorders: No Pertinent History Other Medical History: kidney stones; a-fib - Past Surgical History Past Surgical History: Yes Neuro Surgical History: No Pertinent History Cardiac: No Pertinent History Respiratory: No Pertinent History Gastrointestinal: Appendectomy Genitourinary: No Pertinent History Musculoskeletal: No Pertinent History Female Surgical History: Dilation & Curettage, Section, Tubal Ligation Other Surgical History: D&C, states ultrasound and stress showed irreg. 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 tubal 12/03/15 - Social History Smoking Status: Current every day smoker How long have you smoked: 12 Exposure to second hand smoke: No Drug Use: none Patient Lives Alone: No - Female History Hx Last Menstrual Period: 09/26/18 Hx Now: Yes - Nursing Vital Signs Nursing Vital Signs: Initial Vital Signs Temperature 98.8 F 10/19/18 22:42 Pulse Rate 102 H 10/19/18 22:42 Respiratory Rate 16 10/19/18 22:42 Blood Pressure 132/76 10/19/18 22:42 O2 Sat by Pulse Oximetry 99 10/19/18 22:42 Pain Scale Pain Intensity 0 - Physical Exam General Appearance: no apparent distress Eye Exam: eyes nml inspection Ears, Nose, Throat Exam: normal ENT inspection, moist mucous membranes Neck Exam: normal inspection, non-tender, supple Respiratory Exam: normal breath sounds, lungs clear Cardiovascular Exam: regular rate/rhythm, normal heart sounds, normal peripheral pulses, No murmur Gastrointestinal/Abdomen Exam: soft, normal bowel sounds, No tenderness, No distention, No mass, No guarding, No ecchymosis, No pulsatile mass, No rebound, No hernia, No organomegaly Extremity Exam: normal inspection, No calf tenderness, No pedal edema Neurologic Exam: alert, oriented x 3, cooperative, normal mood/affect Skin Exam: normal color, warm, dry, No rash Lymphatic Exam: No adenopathy SpO2 Interpretation: normal SpO2: 99 O2 Delivery: Room Air - Course Nursing assessment & vital signs reviewed: Yes Ordered Tests: Active Orders 24 hr Category Date Time Status IV Insertion STAT Care 10/19/18 23:07 Active CBC W DIFF Stat Lab 10/19/18 23:30 Completed CMP Stat Lab 10/19/18 23:30 Completed CULTURE,URINE Stat Lab 10/19/18 00:50 Received HCG, Quantitative (Inhouse) Stat Lab 10/19/18 23:30 Completed UA W/RFX UR CULTURE Stat Lab 10/19/18 00:50 Completed Lab/Rad Data: Laboratory Result Diagrams 10/19/18 23:30 10/19/18 23:30 Laboratory Results 10/19/18 10/19/18 10/19/18 Range/Units 23:30 23:30 00:50 WBC 9.3 (4.0-10.5) K/mm3 RBC 4.61 (4.1-5.4) M/mm3 Hgb 12.7 (12.0-16.0) gm/dl Hct 39.4 (35-47) % MCV 85.5 (78-100) fl MCH 27.5 (26-32) pg MCHC 32.2 (32-36) g/dl RDW 15.1 H (11.5-14.0) % Plt Count 285 (150-450) K/mm3 MPV 10.2 H (6-9.5) fl Gran % 52.9 (36.0-66.0) % Eos # (Auto) 0.12 (0-0.5) Absolute Lymphs (auto) 3.60 (1.0-4.6) Absolute Monos (auto) 0.66 (0.0-1.3) Lymphocytes % 38.5 (24.0-44.0) % Monocytes % 7.1 (0.0-12.0) % Eosinophils % 1.3 (0.00-5.0) % Basophils % 0.2 (0.0-0.4) % Absolute Granulocytes 4.94 (1.4-6.9) Basophils # 0.02 (0-0.4) Sodium 141 (137-145) mmol/L Potassium 3.6 (3.5-5.1) mmol/L Chloride 107 (98-107) mmol/L Carbon Dioxide 22 (22-30) mmol/L Anion Gap 15.8 H (5-15) MEQ/L BUN 14 (7-17) mg/dL Creatinine 0.66 (0.52-1.04) mg/dL Estimated GFR > 60.0 ML/MIN Glucose 99 (74-106) mg/dL Calcium 9.9 (8.4-10.2) mg/dL Total Bilirubin < 0.10 L (0.2-1.3) mg/dL AST 15 (14-36) U/L ALT 14 (0-35) U/L Alkaline Phosphatase 63 (38-126) U/L Serum Total Protein 7.7 (6.3-8.2) g/dL Albumin 4.2 (3.5-5.0) g/dL Beta HCG, Quant < 2.39 mIU/ml Urine Color YELLOW (YELLOW) Urine Appearance CLOUDY (CLEAR) Urine pH 7.0 (5-6) Ur Specific [place] 1.026 (1.005-1.025) Urine Protein NEGATIVE (Negative) Urine Ketones NEGATIVE (NEGATIVE) Urine Blood NEGATIVE (0-5) Thang/ul Urine Nitrite NEGATIVE (NEGATIVE) Urine Bilirubin NEGATIVE (NEGATIVE) Urine Urobilinogen 2 (0-1) mg/dL Ur Leukocyte Esterase NEGATIVE (NEGATIVE) Urine WBC (Auto) 6-10 (0-5) /HPF Urine RBC (Auto) 6-10 (0-2) /HPF U Epithel Cells (Auto) MODERATE (FEW) /HPF Urine Bacteria (Auto) MODERATE (NEGATIVE) /HPF Unidentified Crystals 5-10 (NEGATIVE) /HPF Other Casts (Auto) 0-2 (NEGATIVE) /LPF Urine Mucus (Auto) SLIGHT (NEGATIVE) /HPF Urine Culture Reflexed YES (NO) Urine Glucose NEGATIVE (NEGATIVE) mg/dL - Progress Progress: unchanged Air Movement: good Progress Note: 10/20/18 01:24 Serum Beta HCG< 2.39, negative, we reviewed her results with patient, she is being discharged home to follow up with her physician next week. Blood Culture(s) Obtained: No Antibiotics given: No - Departure Departure Disposition: Home Clinical Impression: Galactorrhea Condition: Stable Critical Care Time: No Referrals: ERNESTO CRUMP [Primary Care Provider] - Instructions: Galactorrhea (DC) Additional Instructions: Follow up with your physician next week regarding nipple discharge, or return if severe pain, swelling, fever> 102 F!
[2018-10-20 00:13] LABS: BASOPHIL % 0.2 % (0.0-0.4); Basophil (Absolute #) 0.02 (0-0.4); Eosinophil % 1.3 % (0.00-5.0); Eosinophil (Absolute #) 0.12 (0-0.5); Granulocyte Absolute (ANC) 4.94 (1.4-6.9); Granulocytes % 52.9 % (36.0-66.0); Hematocrit 39.4 % (35-47); Hemoglobin 12.7 gm/dl (12.0-16.0); Lymphocytes % 38.5 % (24.0-44.0); Mean Cell Volume 85.5 fl (78-100); Mean Corpuscular Hemoglobin 27.5 pg (26-32); Mean Corpuscular Hgb Concent. 32.2 g/dl (32-36); Mean Platelet Volume 10.2 fl (6-9.5); Monocyte (Absolute #) 0.66 (0.0-1.3); Monocytes % 7.1 % (0.0-12.0); Platelet Count 285 K/mm3 (150-450); Red Blood Count 4.61 M/mm3 (4.1-5.4); Red Cell Distribution Width 15.1 % (11.5-14.0); White Blood Count 9.3 K/mm3 (4.0-10.5)
[2018-10-20 00:48] LABS: ALBUMIN 4.2 g/dL (3.5-5.0); ALKALINE PHOSPHATASE 63 U/L (38-126); ANION GAP 15.8 MEQ/L (5-15); BILIRUBIN,TOTAL < 0.10 mg/dL (0.2-1.3); BLOOD UREA NITROGEN 14 mg/dL (7-17); CHLORIDE 107 mmol/L (98-107); Calcium 9.9 mg/dL (8.4-10.2); Carbon Dioxide 22 mmol/L (22-30); Creatinine 1 0.66 mg/dL (0.52-1.04); Glucose 99 mg/dL (74-106); HCG, Quantitative (Inhouse) < 2.39 mIU/ml; Potassium 3.6 mmol/L (3.5-5.1); SGOT/AST 15 U/L (14-36); SGPT/ALT 14 U/L (0-35); SODIUM 141 mmol/L (137-145); Total Protein 7.7 g/dL (6.3-8.2)
[2018-10-20 01:04] VITALS: BP 104/58; PULSE 79
[2018-10-20 01:15] LABS: Appearance CLOUDY (CLEAR); Bacteria MODERATE /HPF (NEGATIVE); Bilirubin NEGATIVE (NEGATIVE); Blood NEGATIVE Ery/ul (0-5); Epithelial Cells MODERATE /HPF (FEW); Glucose NEGATIVE (NEGATIVE); Ketones NEGATIVE (NEGATIVE); Leukocyte Esterase NEGATIVE (NEGATIVE); Mucus SLIGHT /HPF (NEGATIVE); Nitrite NEGATIVE (NEGATIVE); Protein,Urine Dip NEGATIVE (Negative); Specific Gravity 1.026 (1.005-1.025); Urobilinogen 2 mg/dL (0-1)
[2018-10-20 01:26] VITALS: O2SAT 99
[2018-10-20 06:40] LABS: ABO TYPING A; RH TYPING POSITIVE
== END 2018-10-20 01:41 | disposition home or self-care (01) ==
LOC: ED 21:56
DX: O92.6 Galactorrhea (principal)
CPT/HCPCS: 36000; 36415; 80053; 81001; 84702; 85025; 86900; 86901; 87086; 99284

== ENCOUNTER 2018-10-31 14:55 | Emergency (ER) | payer OTHER ==
--- NOTE | 2018-10-31 15:09 | ERPHSYRPT ---
- History of Present Illness Time Seen by Provider: 10/31/18 15:09 Source: patient Exam Limitations: no limitations Physician History: 33 y/o white female presents with two day h/o cough and fever to 102 F today. not improved. 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 pts daughter just completed tx for bronchitis. Timing/Duration: day(s) (2) Fever Severity: gone Fever Therapy [employer] DRIVER: Acetaminophen Associated Symptoms: cough, No nausea/vomiting Allergies/Adverse Reactions: hydromorphone HCl [From Dilaudid] Allergy (Severe, Verified 10/31/18 15:21) Anaphylactic Reaction azithromycin [From Zithromax] Allergy (Intermediate, Verified 10/31/18 15:21) erythromycin base [Erythromycin Base] Allergy (Mild, Verified 10/31/18 15:21) morphine Adverse Reaction (Verified 10/31/18 15:21) Hives Hx Tetanus, Diphtheria Vaccination/Date Given: No Hx Influenza Vaccination/Date Given: No Hx Pneumococcal Vaccination/Date Given: No - Review of Systems Constitutional: Fever Eyes: No Symptoms Ears, Nose, & Throat: No Symptoms Respiratory: Cough, No Dyspnea, No Stridor, No Wheezing Cardiac: No Symptoms, No Chest Pain Abdominal/Gastrointestinal: No Symptoms Genitourinary Symptoms: No Symptoms Musculoskeletal: No Symptoms Skin: No Symptoms Neurological: No Symptoms Psychological: No Symptoms Endocrine: No Symptoms Hematologic/Lymphatic: No Symptoms Immunological/Allergic: No Symptoms All Other Systems: Reviewed and Negative - Past Medical History Pertinent Past Medical History: Yes Neurological History: No Pertinent History ENT History: No Pertinent History Cardiac History: Arrhythmia, Other Respiratory History: No Pertinent History Endocrine Medical History: No Pertinent History Musculoskeletal History: No Pertinent History GI Medical History: No Pertinent History History: No Pertinent History Psycho-Social History: No Pertinent History Female Reproductive Disorders: No Pertinent History Other Medical History: kidney stones; a-fib - Past Surgical History Past Surgical History: Yes Neuro Surgical History: No Pertinent History Cardiac: No Pertinent History Respiratory: No Pertinent History Gastrointestinal: Appendectomy Genitourinary: No Pertinent History Musculoskeletal: No Pertinent History Female Surgical History: Dilation & Curettage, Section, Tubal Ligation Other Surgical History: D&C, states ultrasound and stress showed irreg. 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 tubal 7/7/16 - Social History Smoking Status: Current every day smoker How long have you smoked: 12 Exposure to second hand smoke: No Drug Use: none Patient Lives Alone: No - Nursing Vital Signs Nursing Vital Signs: Initial Vital Signs Temperature 98.6 F 10/31/18 15:12 Pulse Rate 102 H 10/31/18 15:12 Respiratory Rate 20 10/31/18 15:12 Blood Pressure 135/82 10/31/18 15:12 O2 Sat by Pulse Oximetry 97 10/31/18 15:12 Pain Scale Pain Intensity 0 - Physical Exam General Appearance: no apparent distress, alert, anxiety Eye Exam: PERRL/EOMI, eyes nml inspection ENT Exam: normal ENT inspection, pharynx normal Neck Exam: normal inspection, non-tender, supple, full range of motion, trachea midline Respiratory Exam: normal breath sounds, lungs clear, no respiratory distress, no accessory muscle use, No chest non-tender Cardiovascular/Chest Exam: normal heart sounds, regular rate/rhythm Gastrointestinal/Abdominal Exam: soft, non tender Pelvic Exam: not done Rectal Exam: not done Extremity Exam: non-tender, normal range of motion, normal inspection Neurologic Exam: alert, oriented x 3, cooperative, senior geologist II-XII nml as tested, normal mood/affect, nml cerebellar function Skin Exam: normal color, warm, dry Lymphatic: No adenopathy SpO2 Interpretation: normal O2 Delivery: Room Air - Course Nursing assessment & vital signs reviewed: Yes Ordered Tests: Active Orders 24 hr Category Date Time Status CHEST 2 VIEWS (PA AND LAT) Stat Exams 10/31/18 15:20 Completed Medication Summary Discontinued Medications Generic Name Dose Route Start Last Admin Trade Name Lata PRN Reason Stop Dose Admin Ceftriaxone Sodium 1,000 mg 10/31/18 16:17 Rocephin 1000 Mg Inj IM 10/31/18 16:18 STAT ONE Prednisone 10 mg 10/31/18 16:19 Deltasone 10 Mg PO 10/31/18 16:20 STAT ONE - Progress Progress: unchanged Progress Note: 10/31/18 16:21 cxr-neg for acute process Counseled pt/family regarding: diagnosis, need for follow-up, rad results - Departure Departure Disposition: Home Clinical Impression: Bronchitis Condition: Stable Critical Care Time: No Referrals: ERNESTO CRUMP [Primary Care Provider] - Additional Instructions: drink plenty of fluids. follow up with primary doctor for further management Prescriptions: Cefdinir 300 mg PO BID 7 Days #14 capsule Prednisone 10 mg [Deltasone 10 mg] 10 mg PO TID #12 tablet
--- NOTE | 2018-10-31 16:11 | XRAY ---
Indication: Fever and cough. Comparison: August 29, 2018. PA/lateral chest again demonstrates normal heart, lungs, and bony thorax.
[2018-10-31] MEDS ORDERED: Rocephin 1000 MG INJ IM ONE (16:17)
[2018-10-31] MEDS ORDERED: DELTASONE 10 MG PO ONE (16:19)
[2018-10-31] MEDS ORDERED: Rocephin 1000 MG INJ ONE (16:22)
[2018-10-31] MEDS ORDERED: DELTASONE 20 MG ONE (16:22)
[2018-10-31 17:18] VITALS: BP 116/57; PULSE 78; O2SAT 98
== END 2018-10-31 17:18 | disposition home or self-care (01) ==
LOC: ED 14:55
DX: J40 Bronchitis, not specified as acute or chronic (principal); R05 Cough; R50.9 Fever, unspecified
CPT/HCPCS: 71046; 96372; 99284; J0696; A9270-GY

== ENCOUNTER 2019-02-01 12:38 | Emergency (ER) | payer OTHER ==
[2019-02-01] MEDS ORDERED: Pepcid 20 MG VIAL IV ONE (12:48)
[2019-02-01] MEDS ORDERED: Sodium Chloride 0.9% 1000 ML 1,000 ML ONE (12:48)
[2019-02-01] MEDS ORDERED: solu-MEDROL 125 MG ONE (12:48)
--- NOTE | 2019-02-01 12:48 | ERPHSYRPT ---
- History of Present Illness Time Seen by Provider: 02/01/19 12:40 Source: patient, EMS Exam Limitations: no limitations Physician History: patient was diagnosed with allergic reaction to her migraine medication 1 week ago when she had a similar allergic reaction to her symptoms currently. Last time she took her migraine medication was 2 weeks ago. Current symptoms began approximately 20 minutes ago. Timing/Duration: abrupt onset Severity: severe ENT Location: throat Prearrival Treatment: prescription meds (patient given Epinephrine 0.3mg IM times one) Modifying Factors: Improves With: nothing Associated Symptoms: difficulty swallowing, No ear pain (R), No ear pain (L), No cough, No fever, No chills, No change in hearing, No dizziness, No drooling, No ear drainage, No facial pain/swelling, No headache, No hearing loss, No jaw pain, No malaise, No motion sickness, No nasal congestion/drainage, No epistaxis , No nasal foreign body, No neck pain, No swollen glands, No sinus infection, No sore throat, No voice change Allergies/Adverse Reactions: hydromorphone HCl [From Dilaudid] Allergy (Severe, Verified 10/31/18 15:21) Anaphylactic Reaction azithromycin [From Zithromax] Allergy (Intermediate, Verified 10/31/18 15:21) erythromycin base [Erythromycin Base] Allergy (Mild, Verified 10/31/18 15:21) erenumab-aooe [From Aimovig Autoinjector] Allergy (Verified 02/01/19 13:14) morphine Adverse Reaction (Verified 10/31/18 15:21) Hives Hx Tetanus, Diphtheria Vaccination/Date Given: No Hx Influenza Vaccination/Date Given: No Hx Pneumococcal Vaccination/Date Given: No - Review of Systems Constitutional: No Fever, No Chills Eyes: No Symptoms Ears, Nose, & Throat: No Symptoms, Throat Swelling, No Nose Pain, No Nose Congestion, No Nose Discharge, No Epistaxis, No Mouth Swelling, No Throat Pain Respiratory: No Cough, No Dyspnea, No Stridor, No Wheezing Cardiac: No Chest Pain, No Edema, No Syncope Abdominal/Gastrointestinal: No Abdominal Pain, No Nausea, No Vomiting, No Diarrhea Genitourinary Symptoms: No Dysuria Musculoskeletal: No Back Pain, No Neck Pain Skin: No Rash Neurological: No Dizziness, No Focal Weakness, No Sensory Changes Psychological: No Symptoms Endocrine: No Symptoms, No Excessive Sweating Hematologic/Lymphatic: No Easy Bleeding, No Easy Bruising All Other Systems: Reviewed and Negative - Past Medical History Pertinent Past Medical History: Yes Neurological History: No Pertinent History ENT History: No Pertinent History Cardiac History: Arrhythmia, Other Respiratory History: No Pertinent History Endocrine Medical History: No Pertinent History Musculoskeletal History: No Pertinent History GI Medical History: No Pertinent History History: No Pertinent History Psycho-Social History: No Pertinent History Female Reproductive Disorders: No Pertinent History Other Medical History: kidney stones; a-fib - Past Surgical History Past Surgical History: Yes Neuro Surgical History: No Pertinent History Cardiac: No Pertinent History Respiratory: No Pertinent History Gastrointestinal: Appendectomy Genitourinary: No Pertinent History Musculoskeletal: No Pertinent History Female Surgical History: Dilation & Curettage, Section, Tubal Ligation Other Surgical History: D&C, states ultrasound and stress showed irreg. heartbeat and chest pain in past few months, test lead unable to find irregular heartbeat. tubal 12/03/15 - Social History Smoking Status: Current every day smoker How long have you smoked: 12 Exposure to second hand smoke: No Drug Use: none Patient Lives Alone: No - Nursing Vital Signs Nursing Vital Signs: Initial Vital Signs Temperature 98.3 F 02/01/19 12:40 Pulse Rate 125 H 02/01/19 12:40 Respiratory Rate 30 H 02/01/19 12:40 Blood Pressure 134/87 02/01/19 12:40 O2 Sat by Pulse Oximetry 99 02/01/19 12:40 Pain Scale Pain Intensity 8 - Physical Exam General Appearance: mild distress, alert, anxiety Eye Exam: bilateral eye: PERRL, EOMI Nasal Exam: normal inspection, No active bleeding, No discharge Throat Exam: pharynx normal, moist mucus membranes, No pharynx swelling, No pharynx tenderness, No tongue swollen, No tonsillar exudate, No tonsillar swelling, No trismus, No uvula swelling, No voice changes Neck Exam: supple Cardiovascular/Respiratory Exam: normal breath sounds, regular rate/rhythm, no M /R/G, normal peripheral pulses, No no JVD, No decreased breath sounds (positive tachypnea), No accessory muscle use, No wheezing Abdominal Exam: non-tender, soft Neurologic Exam: alert, oriented x 3, 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 services consultant II-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 nml as tested, sensation nml, No motor deficits, No confusion, No facial droop, No slurred speech Skin Exam: normal color, warm, dry SpO2 Interpretation: normal O2 Delivery: Room Air Ordered Tests: Active Orders 24 hr Category Date Time Status Surgical Services Director STAT Care 02/01/19 12:41 Active IV Insertion STAT Care 02/01/19 12:41 Active Medication Summary Generic Name Dose Route Start Last Admin Trade Name Freq PRN Reason Stop Dose Admin Sodium Chloride 1,000 mls @ 999 mls/hr 02/01/19 12:41 02/01/19 12:51 Sodium Chloride 0.9% 1000 Ml IV 02/01/19 13:41 999 mls/hr .[id number] STA Administration Discontinued Medications Generic Name Dose Route Start Last Admin Trade Name Freq PRN Reason Stop Dose Admin Diphenhydramine HCl 50 mg 02/01/19 12:41 02/01/19 12:51 Benadryl 50 Mg/Ml IV 02/01/19 12:42 50 mg STAT ONE Administration Famotidine 20 mg 02/01/19 12:41 02/01/19 12:51 Pepcid 20 Mg Vial IV 02/01/19 12:42 20 mg STAT ONE Administration Famotidine Confirm 02/01/19 12:48 Pepcid 20 Mg Vial Administered 02/01/19 12:49 Dose 20 mg IV .STK-MED ONE Sodium Chloride Confirm 02/01/19 12:48 Sodium Chloride 0.9% 1000 Ml Administered 02/01/19 12:49 Dose 1,000 mls @ ud .ROUTE .STK-MED ONE Methylprednisolone Sodium Succinate 125 mg 02/01/19 12:41 02/01/19 12:51 Solu-Medrol 125 Mg IV 02/01/19 12:42 125 mg STAT ONE Administration Methylprednisolone Sodium Succinate Confirm 02/01/19 12:48 Solu-Medrol 125 Mg Administered 02/01/19 12:49 Dose 125 mg .ROUTE .STK-MED ONE - Progress Progress: improved, re-examined Progress Note: 02/01/19 12:50 ttachypnea has resolved; pulse ox on room air; clear auscultation: Jeong, no wheeze or rhonchi; no stridor on examination, tongue normal size with posterior oropharynx patent with no uvula swelling appreciated. the patient is hemodynamically in good condition with good peripheral pulses with mild tachycardia with pulse 102 on the phototypesetting equipment monitor. 02/01/19 13:17 the patient has no respiratory distress, no tachypnea, is clear to auscultation throughout all lung jeong, no stridor, no swelling of the tongue, no posterior or pharyngeal swelling, no urticaria or any other rashes to the skin, no erythema. patient's pulse is 98 and in sinus rhythm on the phototypesetting equipment monitor and hemodynamically in good condition. 02/01/19 13:40 Patient is sleeping comfortably and easily awakened. patient has not had any objective findings of anaphylaxis or further allergic reaction while in the emergency department. She has no respiratory distress, no tachypnea, is clear to auscultation throughout all lung jeong, no stridor, no swelling of the tongue, no posterior or pharyngeal swelling, no urticaria or any other rashes to the skin, no erythema. Patient's pulse is 9os and in sinus rhythm on the phototypesetting equipment monitor and hemodynamically in good condition. Counseled pt/family regarding: diagnosis, need for follow-up - Departure Departure Disposition: Home Clinical Impression: Elevated blood pressure reading without diagnosis of hypertension Allergic reaction Qualifiers: Encounter type: initial encounter Qualified Code(s): T78.40XA - Allergy, unspecified, initial encounter Condition: Good Critical Care Time: No Referrals: ERNESTO CRUMP [Primary Care Provider] - Follow Up with PCP/3 days Instructions: Anaphylaxis (DC), Allergy Skin Testing, Adverse Drug Reactions, Adult (DC), DASH Diet Additional Instructions: return immediately back to the emergency department if you have any difficulty breathing, new skin rashes, dizziness, feeling like you will pass out, swelling to your face, swelling to your mouth, swelling to your tongue, or any other concerning signs or symptoms that were not present at today's emergency department visit for reevaluation immediately in the emergency department. Forms: Work/School Release Form Prescriptions: EPINEPHrine [Epipen 0.3 MG] 0.3 mg IM DAILY PRN PRN #1 pack PRN Reason: Allergies Loratadine 10 mg [Claritin 10 mg] 10 mg PO DAILY #10 tablet
[2019-02-01] MEDS: Pepcid 20 MG VIAL IV ONE (12:51)
[2019-02-01] MEDS: BENADRYL 50 MG/ML IV ONE (12:51)
[2019-02-01] MEDS: solu-MEDROL 125 MG IV ONE (12:51)
[2019-02-01] MEDS: Sodium Chloride 0.9% 1000 ML 1,000 ML IV STA (12:51)
[2019-02-01 13:00] VITALS: O2SAT 99
[2019-02-01 14:23] VITALS: BP 117/68; PULSE 95
== END 2019-02-01 14:15 | disposition home or self-care (01) ==
LOC: ED 12:38
DX: R03.0 Elevated blood-pressure reading, without diagnosis of hypertension (principal); T78.40XA Allergy, unspecified, initial encounter
CPT/HCPCS: 36000; 93041; 96360; 96374; 96375; 99284; J1200; J2930

== ENCOUNTER 2019-02-06 10:37 | Emergency (ER) | payer OTHER ==
[2019-02-06] MEDS ORDERED: Sodium Chloride 0.9% 1000 ML 1,000 ML IV STA (10:48)
[2019-02-06] MEDS ORDERED: BENADRYL 50 MG/ML IV ONE (10:50)
--- NOTE | 2019-02-06 10:54 | ERPHSYRPT ---
- History of Present Illness Time Seen by Provider: 02/06/19 10:40 Historian: patient Exam Limitations: no limitations Physician History: Chest pain that began at 18:00 on 02/06/2019. Patient began having widespread pruritus on 02/06/2019, worse on her feet. Patient referred to the emergency department from the [facility]. Patient was brought into the ED on 2018 for an allergic reaction and discharged that day after treatment and observation. Timing/Duration: yesterday (began @ 18:00 on 02/05/2019) Activities at Onset: none Quality: sharpness Location: substernal Chest Pain Radiation: no radiation Severity of Pain-Max: moderate Severity of Pain-Current: moderate Modifying Factors: Improves With: nothing Associated Symptoms: No nausea, No vomiting, No palpitations, No heartburn, No abdominal pain, No shortness of breath, No cough, No hurts to breathe, No diaphoresis, No chills, No fever, No fatigue, No weakness, No swelling/lump in chest, No syncope, No rash, No headache, No dizziness, No edema, No back pain Prior Chest Pain/Cardiac Workup: non-cardiac Nitro Today/Relief: no nitro taken today Aspirin Treatment Today: no aspirin today Allergies/Adverse Reactions: hydromorphone HCl [From Dilaudid] Allergy (Severe, Verified 02/06/19 11:01) Anaphylactic Reaction azithromycin [From Zithromax] Allergy (Intermediate, Verified 02/06/19 11:01) erythromycin base [Erythromycin Base] Allergy (Mild, Verified 02/06/19 11:01) erenumab-[id number] [From Aimovig Autoinjector] Allergy (Verified 02/06/19 11:01) morphine Adverse Reaction (Verified 02/06/19 11:01) Hives Home Medications: P-Ephed HCl/Dp-Hydram HCl [Benadryl-D Allergy & Sinus Liq] 10 ml PO Q4H PRN PRN 02/06/19 [History] Hx Tetanus, Diphtheria Vaccination/Date Given: No Hx Influenza Vaccination/Date Given: No Hx Pneumococcal Vaccination/Date Given: No - Review of Systems Constitutional: No Fever, No Chills Eyes: No Symptoms, No Eye Pain, No Photophobia, No Tearing, No Double Vision Ears, Nose, & Throat: No Symptoms, No Nose Congestion, No Throat Pain, No Throat Swelling, No Stridor Respiratory: No Cough, No Dyspnea Cardiac: Chest Pain, No Edema, No Syncope Abdominal/Gastrointestinal: No Abdominal Pain, No Nausea, No Vomiting, No Diarrhea Genitourinary Symptoms: No Dysuria, No Hematuria, No Urgency, No Urinary Retention, No Flank Pain Musculoskeletal: No Back Pain, No Neck Pain Skin: Pruritis, No Rash Neurological: No Dizziness, No Focal Weakness, No Sensory Changes Psychological: No Symptoms, No Anxiety, No Mood Changes Endocrine: No Symptoms Hematologic/Lymphatic: No Easy Bleeding, No Easy Bruising All Other Systems: Reviewed and Negative - Past Medical History Pertinent Past Medical History: Yes Neurological History: No Pertinent History ENT History: No Pertinent History Cardiac History: Arrhythmia, Other Respiratory History: No Pertinent History Endocrine Medical History: No Pertinent History Musculoskeletal History: No Pertinent History GI Medical History: No Pertinent History History: No Pertinent History Psycho-Social History: No Pertinent History Female Reproductive Disorders: No Pertinent History Other Medical History: kidney stones; a-fib - Past Surgical History Past Surgical History: Yes Neuro Surgical History: No Pertinent History Cardiac: No Pertinent History Respiratory: No Pertinent History Gastrointestinal: Appendectomy Genitourinary: No Pertinent History Musculoskeletal: No Pertinent History Female Surgical History: Dilation & Curettage, Section, Tubal Ligation Other Surgical History: D&C, states ultrasound and stress showed irreg. 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 tubal 12/03/15 - Social History Smoking Status: Current every day smoker How long have you smoked: 12 Exposure to second hand smoke: No Drug Use: none Patient Lives Alone: No - Female History Hx Now: No - Nursing Vital Signs Nursing Vital Signs: Initial Vital Signs Temperature 97.9 F 02/06/19 10:39 Pulse Rate 101 H 02/06/19 10:39 Respiratory Rate 16 02/06/19 10:39 Blood Pressure 160/91 02/06/19 10:39 O2 Sat by Pulse Oximetry 98 02/06/19 10:39 Pain Scale Pain Intensity 5 - Physical Exam General Appearance: no apparent distress, alert Eye Exam: PERRL/EOMI, eyes nml inspection, No scleral icterus, No pale conjunctivae Ears, Nose, Throat Exam: normal ENT inspection, TMs normal, pharynx normal, moist mucous membranes Neck Exam: normal inspection, non-tender, supple, full range of motion, No meningismus, No Brudzinski, No Kernig's, No carotid bruit, No JVD Respiratory Exam: normal breath sounds, lungs clear, airway intact, No respiratory distress, No accessory muscle use, No prolonged expirations, No crackles/rales, No rhonchi, No wheezing, No stridor Cardiovascular Exam: regular rate/rhythm, normal heart sounds, normal peripheral pulses, capillary refill <2 sec Gastrointestinal/Abdomen Exam: soft, normal bowel sounds, No tenderness, No distention, No mass, No guarding, No rebound, No hernia Back Exam: normal inspection, No CVA tenderness, No vertebral tenderness Extremity Exam: normal inspection, normal range of motion, No calf tenderness, No pedrito's sign, No pedal edema, No swelling Neurologic Exam: alert, oriented x 3, cooperative, outsole compressor II-XII nml as tested, normal mood/affect, sensation nml, No motor deficits Skin Exam: normal color, warm, dry, No rash, No petechiae, No abrasion, No cyanosis, No jaundice SpO2 Interpretation: normal SpO2: 98 O2 Delivery: Room Air - Course Nursing assessment & vital signs reviewed: Yes EKG Interpreted by Me: RATE (112), Sinus Tach, LAFB, NORMAL INTERVALS, NORMAL QRS, NORMAL ST-T, Other (no change in comparison to EKG from 08/29/2018) - Radiology Exams Chest X-ray Interpretation: Interpreted by me, Reviewed by me, No Pneumonia, No Pneumothorax, Nml Heart Size, No Infiltrates, Nml Mediastinum Ordered Tests: Active Orders 24 hr Category Date Time Status Industrial Security Analyst STAT Care 02/06/19 10:49 Active EKG-ER Only STAT Care 02/06/19 10:48 Active IV Insertion STAT Care 02/06/19 10:48 Active Pulse Oximetry (ED) STAT Care 02/06/19 10:48 Active CHEST 1 VIEW (PORTABLE) Stat Exams 02/06/19 10:49 Taken CBC W DIFF Stat Lab 02/06/19 10:48 Completed CK-Creatinine Phosphokinase Stat Lab 02/06/19 10:48 Completed CMP Stat Lab 02/06/19 10:48 Completed D-DIMER QUANTITATION Stat Lab 02/06/19 11:00 Completed HCG,QUALITATIVE URINE Stat Lab 02/06/19 11:22 Completed LIPASE Stat Lab 02/06/19 11:00 Completed PROTIME WITH INR Stat Lab 02/06/19 11:00 Completed PTT Stat Lab 02/06/19 11:00 Completed TROPONIN Q3H Lab 02/06/19 11:00 Completed TROPONIN Q3H Lab 02/06/19 14:00 Ordered TROPONIN Q3H Lab 02/06/19 17:00 Ordered TROPONIN Q3H Lab 02/06/19 20:00 Ordered TROPONIN Q3H Lab 02/06/19 23:00 Ordered TSH [TSH, 3RD Generation] Stat Lab 02/06/19 11:00 Completed Urine Triage Profile Stat Lab 02/06/19 11:22 Completed Medication Summary Discontinued Medications Generic Name Dose Route Start Last Admin Trade Name Freq PRN Reason Stop Dose Admin Diphenhydramine HCl 50 mg 02/06/19 10:50 02/06/19 11:06 Benadryl 50 Mg/Ml IV 02/06/19 10:51 50 mg STAT ONE Administration Diphenhydramine HCl Confirm 02/06/19 11:00 Benadryl 50 Mg/Ml Administered 02/06/19 11:01 Dose 50 mg .ROUTE .STK-MED ONE Diphenhydramine HCl Confirm 02/06/19 11:04 Benadryl 50 Mg/Ml Administered 02/06/19 11:05 Dose 50 mg .ROUTE .STK-MED ONE Famotidine 20 mg 02/06/19 11:19 02/06/19 11:22 Pepcid 20 Mg Vial IV 02/06/19 11:20 20 mg STAT ONE Administration Famotidine Confirm 02/06/19 11:21 Pepcid 20 Mg Vial Administered 02/06/19 11:22 Dose 20 mg IV .STK-MED ONE Sodium Chloride 1,000 mls @ 999 mls/hr 02/06/19 10:48 02/06/19 11:06 Sodium Chloride 0.9% 1000 Ml IV 02/06/19 11:48 999 mls/hr .Q1H1M STA Administration Sodium Chloride Confirm 02/06/19 11:00 Sodium Chloride 0.9% 1000 Ml Administered 02/06/19 11:01 Dose 1,000 mls @ ud .ROUTE .STK-MED ONE Sodium Chloride Confirm 02/06/19 11:04 Sodium Chloride 0.9% 1000 Ml Administered 02/06/19 11:05 Dose 1,000 mls @ ud .ROUTE .STK-MED ONE Lorazepam 1 mg 02/06/19 11:38 02/06/19 11:51 Ativan 2 Mg/1 Ml Vial IV 02/06/19 11:39 1 mg STAT ONE Administration Lorazepam Confirm 02/06/19 11:44 Ativan 2 Mg/1 Ml Vial Administered 02/06/19 11:45 Dose 2 mg .ROUTE .STK-MED ONE Lab/Rad Data: Laboratory Result Diagrams 02/06/19 10:48 02/06/19 10:48 Laboratory Results 02/06/19 02/06/19 02/06/19 Range/Units 11:22 11:22 11:00 WBC (4.0-10.5) K/mm3 RBC (4.1-5.4) M/mm3 Hgb (12.0-16.0) gm/dl Hct (35-47) % MCV (78-100) fl MCH (26-32) pg MCHC (32-36) g/dl RDW (11.5-14.0) % Plt Count (150-450) K/mm3 MPV (6-9.5) fl Gran % (36.0-66.0) % Eos # (Auto) (0-0.5) Absolute Lymphs (auto) (1.0-4.6) Absolute Monos (auto) (0.0-1.3) Lymphocytes % (24.0-44.0) % Monocytes % (0.0-12.0) % Eosinophils % (0.00-5.0) % Basophils % (0.0-0.4) % Absolute Granulocytes (1.4-6.9) Basophils # (0-0.4) PT (9.95-12.35) SECONDS INR (0.8-3.0) APTT (25.3-37.0) SECONDS D-Dimer (215-500) ng/mL Sodium (137-145) mmol/L Potassium (3.5-5.1) mmol/L Chloride (98-107) mmol/L Carbon Dioxide (22-30) mmol/L Anion Gap (5-15) MEQ/L BUN (7-17) mg/dL Creatinine (0.52-1.04) mg/dL Estimated GFR ML/MIN Glucose (74-106) mg/dL Calcium (8.4-10.2) mg/dL Total Bilirubin (0.2-1.3) mg/dL AST (14-36) U/L ALT (0-35) U/L Alkaline Phosphatase (38-126) U/L Creatine Kinase (30-135) U/L Troponin I < 0.012 (0.000-0.034) ng/mL Serum Total Protein (6.3-8.2) g/dL Albumin (3.5-5.0) g/dL Lipase (23-300) U/L TSH 3rd Generation (0.47-4.68) mIU/L Urine HCG, Qual NEGATIVE (Negative) Urine Opiates Level NEGATIVE (NEGATIVE) Ur Methadone NEGATIVE (NEGATIVE) Urine Barbiturates NEGATIVE (NEGATIVE) Ur Phencyclidine (PCP) NEGATIVE (NEGATIVE) Urine Amphetamine NEGATIVE (NEGATIVE) U Benzodiazepine Level NEGATIVE (NEGATIVE) Urine Cocaine NEGATIVE (NEGATIVE) Urine Marijuana (THC) NEGATIVE (NEGATIVE) 02/06/19 02/06/19 02/06/19 Range/Units 11:00 11:00 10:48 WBC (4.0-10.5) K/mm3 RBC (4.1-5.4) M/mm3 Hgb (12.0-16.0) gm/dl Hct (35-47) % MCV (78-100) fl MCH (26-32) pg MCHC (32-36) g/dl RDW (11.5-14.0) % Plt Count (150-450) K/mm3 MPV (6-9.5) fl Gran % (36.0-66.0) % Eos # (Auto) (0-0.5) Absolute Lymphs (auto) (1.0-4.6) Absolute Monos (auto) (0.0-1.3) Lymphocytes % (24.0-44.0) % Monocytes % (0.0-12.0) % Eosinophils % (0.00-5.0) % Basophils % (0.0-0.4) % Absolute Granulocytes (1.4-6.9) Basophils # (0-0.4) PT 11.6 (9.95-12.35) SECONDS INR 1.03 (0.8-3.0) APTT 29.5 (25.3-37.0) SECONDS D-Dimer 471 (215-500) ng/mL Sodium 141 (137-145) mmol/L Potassium 3.5 (3.5-5.1) mmol/L Chloride 109 H (98-107) mmol/L Carbon Dioxide 20 L (22-30) mmol/L Anion Gap 15.9 H (5-15) MEQ/L BUN 10 (7-17) mg/dL Creatinine 0.55 (0.52-1.04) mg/dL Estimated GFR > 60.0 ML/MIN Glucose 105 (74-106) mg/dL Calcium 9.6 (8.4-10.2) mg/dL Total Bilirubin 0.50 (0.2-1.3) mg/dL AST 26 (14-36) U/L ALT 30 (0-35) U/L Alkaline Phosphatase 61 (38-126) U/L Creatine Kinase 22 L (30-135) U/L Troponin I (0.000-0.034) ng/mL Serum Total Protein 7.7 (6.3-8.2) g/dL Albumin 4.2 (3.5-5.0) g/dL Lipase 110 (23-300) U/L TSH 3rd Generation 0.749 (0.47-4.68) mIU/L Urine HCG, Qual (Negative) Urine Opiates Level (NEGATIVE) Ur Methadone (NEGATIVE) Urine Barbiturates (NEGATIVE) Ur Phencyclidine (PCP) (NEGATIVE) Urine Amphetamine (NEGATIVE) U Benzodiazepine Level (NEGATIVE) Urine Cocaine (NEGATIVE) Urine Marijuana (THC) (NEGATIVE) 02/06/19 Range/Units 10:48 WBC 6.7 (4.0-10.5) K/mm3 RBC 4.58 (4.1-5.4) M/mm3 Hgb 12.6 (12.0-16.0) gm/dl Hct 39.0 (35-47) % MCV 85.2 (78-100) fl MCH 27.5 (26-32) pg MCHC 32.3 (32-36) g/dl RDW 15.7 H (11.5-14.0) % Plt Count 268 (150-450) K/mm3 MPV 9.8 H (6-9.5) fl Gran % 58.0 (36.0-66.0) % Eos # (Auto) 0.13 (0-0.5) Absolute Lymphs (auto) 2.18 (1.0-4.6) Absolute Monos (auto) 0.46 (0.0-1.3) Lymphocytes % 32.8 (24.0-44.0) % Monocytes % 6.9 (0.0-12.0) % Eosinophils % 2.0 (0.00-5.0) % Basophils % 0.3 (0.0-0.4) % Absolute Granulocytes 3.86 (1.4-6.9) Basophils # 0.02 (0-0.4) PT (9.95-12.35) SECONDS INR (0.8-3.0) APTT (25.3-37.0) SECONDS D-Dimer (215-500) ng/mL Sodium (137-145) mmol/L Potassium (3.5-5.1) mmol/L Chloride (98-107) mmol/L Carbon Dioxide (22-30) mmol/L Anion Gap (5-15) MEQ/L BUN (7-17) mg/dL Creatinine (0.52-1.04) mg/dL Estimated GFR ML/MIN Glucose (74-106) mg/dL Calcium (8.4-10.2) mg/dL Total Bilirubin (0.2-1.3) mg/dL AST (14-36) U/L ALT (0-35) U/L Alkaline Phosphatase (38-126) U/L Creatine Kinase (30-135) U/L Troponin I (0.000-0.034) ng/mL Serum Total Protein (6.3-8.2) g/dL Albumin (3.5-5.0) g/dL Lipase (23-300) U/L TSH 3rd Generation (0.47-4.68) mIU/L Urine HCG, Qual (Negative) Urine Opiates Level (NEGATIVE) Ur Methadone (NEGATIVE) Urine Barbiturates (NEGATIVE) Ur Phencyclidine (PCP) (NEGATIVE) Urine Amphetamine (NEGATIVE) U Benzodiazepine Level (NEGATIVE) Urine Cocaine (NEGATIVE) Urine Marijuana (THC) (NEGATIVE) - Progress Progress: re-examined Air Movement: good Progress Note: 02/06/19 11:49 Patient had anxiety still, so Ativan 1mg IV times one was given. 02/06/19 11:57 HEART score: 1, risk of 0.9-1.7% risk of MACE in next 6 weeks, low risk. PERC Rule for PE: 0 with negative range D-Dimer: no need for further imaging for Pulmonary Embolism 02/06/19 12:24 Patient has normal vitals and hemodynamically in good condition. Blood pressure normalized after IV medications and fluids from hypertensive to normotensive with no signs of hypoxia or tachycardia. Patient is asymptomatic with no chest pain, pruritus, dyspnea, abdominal pain or any skin rashes. 02/06/19 12:31 Patient has remained in sinus rhythm throughout her time in the emergency department with no signs of arrhythmias, ectopy, ischemia, injury or infarction. Blood Culture(s) Obtained: No Antibiotics given: No Counseled pt/family regarding: lab results, diagnosis, need for follow-up, rad results - Departure Departure Disposition: Home Clinical Impression: Pruritus Chest pain Qualifiers: Chest pain type: unspecified Qualified Code(s): R07.9 - Chest pain, unspecified Condition: Good Critical Care Time: No Referrals: ERNESTO CRUMP [Primary Care Provider] - 02/07/19 Instructions: Atypical Chest Pain, Chest Pain (DC), Itchy Skin Additional Instructions: return immediately back to the emergency department if any recurrent chest pain , shortness of breath, skin rashes, shortness of breath or any other concerning signs or symptoms that were not present at today's emergency room visit for immediate reevaluation in the emergency department. Forms: Work/School Release Form
[2019-02-06] MEDS ORDERED: Sodium Chloride 0.9% 1000 ML 0 ML ONE (11:00)
[2019-02-06] MEDS ORDERED: BENADRYL 50 MG/ML ONE ×2 (11:00→11:04)
[2019-02-06] MEDS ORDERED: Sodium Chloride 0.9% 1000 ML 1,000 ML ONE (11:04)
[2019-02-06 11:11] LABS: BASOPHIL % 0.3 % (0.0-0.4); Basophil (Absolute #) 0.02 (0-0.4); Eosinophil (Absolute #) 0.13 (0-0.5); Granulocyte Absolute (ANC) 3.86 (1.4-6.9); Hemoglobin 12.6 gm/dl (12.0-16.0); Lymphocyte (Absolute #) 2.18 (1.0-4.6); Lymphocytes % 32.8 % (24.0-44.0); Mean Cell Volume 85.2 fl (78-100); Mean Corpuscular Hemoglobin 27.5 pg (26-32); Mean Corpuscular Hgb Concent. 32.3 g/dl (32-36); Mean Platelet Volume 9.8 fl (6-9.5); Monocyte (Absolute #) 0.46 (0.0-1.3); Monocytes % 6.9 % (0.0-12.0); Platelet Count 268 K/mm3 (150-450); Red Blood Count 4.58 M/mm3 (4.1-5.4); Red Cell Distribution Width 15.7 % (11.5-14.0); White Blood Count 6.7 K/mm3 (4.0-10.5)
[2019-02-06 11:16] LABS: INR 1.03 (0.8-3.0); PROTIME 11.6 SECONDS (9.95-12.35)
[2019-02-06 11:19] LABS: PTT 29.5 SECONDS (25.3-37.0)
[2019-02-06] MEDS ORDERED: Pepcid 20 MG VIAL IV ONE ×2 (11:19→11:21)
[2019-02-06 11:29] LABS: ALBUMIN 4.2 g/dL (3.5-5.0); ALKALINE PHOSPHATASE 61 U/L (38-126); ANION GAP 15.9 MEQ/L (5-15); BLOOD UREA NITROGEN 10 mg/dL (7-17); CHLORIDE 109 mmol/L (98-107); CK-Creatinine Phosphokinase 22 U/L (30-135); Calcium 9.6 mg/dL (8.4-10.2); Carbon Dioxide 20 mmol/L (22-30); Creatinine 1 0.55 mg/dL (0.52-1.04); Glucose 105 mg/dL (74-106); Potassium 3.5 mmol/L (3.5-5.1); SGOT/AST 26 U/L (14-36); SGPT/ALT 30 U/L (0-35); SODIUM 141 mmol/L (137-145); Total Protein 7.7 g/dL (6.3-8.2)
[2019-02-06] MEDS ORDERED: Ativan 2 MG/1 ML VIAL IV ONE (11:38)
[2019-02-06] MEDS ORDERED: Ativan 2 MG/1 ML VIAL ONE (11:44)
[2019-02-06 11:48] LABS: Amphetamine,Urine NEGATIVE (NEGATIVE); Barbiturate,Urine NEGATIVE (NEGATIVE); Benzodiazepine,Urine NEGATIVE (NEGATIVE); Cocaine,Urine NEGATIVE (NEGATIVE); Methadone,Urine NEGATIVE (NEGATIVE); Opiate,Urine NEGATIVE (NEGATIVE); PCP,Urine NEGATIVE (NEGATIVE); THC,Urine NEGATIVE (NEGATIVE)
[2019-02-06 12:00] LABS: TSH, 3RD Generation 0.749 mIU/L (0.47-4.68)
--- NOTE | 2019-02-06 12:41 | XRAY ---
Exam: AP upright portable chest film from 02/06/2019. Comparison: Two-view chest from 10/31/2018. Indication: 33-year-old female with chest pain. Findings: The heart size and contour are normal. The royal and mediastinal structures appear unremarkable. The lungs are adequately inflated. No air space infiltrates to suggest focal pneumonia are seen. Pulmonary vascularity is within normal limits. No pneumothorax or pleural effusion is seen. No acute osseous abnormality seen. Impression: 1. No infiltrates to suggest focal pneumonia or other acute cardio pulmonary disease is seen, no change from 10/31/2018.
[2019-02-06 13:20] VITALS: O2SAT 97
[2019-02-06 13:56] VITALS: BP 109/65; PULSE 78
== END 2019-02-06 13:56 | disposition home or self-care (01) ==
LOC: ED 10:37
DX: L29.9 Pruritus, unspecified (principal); R07.9 Chest pain, unspecified
CPT/HCPCS: 36000; 36415; 71045; 80053; 80307; 82550; 83690; 84443; 84484; 84703; 85025; 85379; 85610; 85730; 93005; 93041; 94760; 96360; 96374; 96375; 99284; J1200; J2060

== ENCOUNTER 2019-03-02 14:08 | Emergency (ER) | payer OTHER ==
[2019-03-02] MEDS ORDERED: Sodium Chloride 0.9% 1000 ML 1,000 ML IV STA (14:12)
[2019-03-02 14:34] LABS: Absolute Neutrophil Ct (ANC) 5.45 (1.4-6.9); BASOPHIL % 0.1 % (0.0-0.4); Basophil (Absolute #) 0.01 (0-0.4); Eosinophil % 0.8 % (0.00-5.0); Eosinophil (Absolute #) 0.07 (0-0.5); Hematocrit 39.2 % (35-47); Hemoglobin 12.7 gm/dl (12.0-16.0); Lymphocyte (Absolute #) 2.18 (1.0-4.6); Lymphocytes % 26.2 % (24.0-44.0); Mean Cell Volume 85.8 fl (78-100); Mean Corpuscular Hemoglobin 27.8 pg (26-32); Mean Corpuscular Hgb Concent. 32.4 g/dl (32-36); Mean Platelet Volume 9.6 fl (6-9.5); Monocyte (Absolute #) 0.62 (0.0-1.3); Monocytes % 7.4 % (0.0-12.0); Neutrophil % 65.5 % (36.0-66.0); Platelet Count 275 K/mm3 (150-450); Red Blood Count 4.57 M/mm3 (4.1-5.4); White Blood Count 8.3 K/mm3 (4.0-10.5)
[2019-03-02] MEDS ORDERED: Sodium Chloride 0.9% 1000 ML 1,000 ML ONE (14:46)
[2019-03-02 14:49] LABS: ALBUMIN 4.2 g/dL (3.5-5.0); ALKALINE PHOSPHATASE 67 U/L (38-126); ANION GAP 15.5 MEQ/L (5-15); BLOOD UREA NITROGEN 12 mg/dL (7-17); CHLORIDE 106 mmol/L (98-107); Calcium 9.8 mg/dL (8.4-10.2); Carbon Dioxide 21 mmol/L (22-30); Creatinine 1 0.66 mg/dL (0.52-1.04); Glucose 98 mg/dL (74-106); Potassium 3.8 mmol/L (3.5-5.1); SGOT/AST 21 U/L (14-36); SGPT/ALT 21 U/L (0-35); SODIUM 140 mmol/L (137-145); TROPONIN < 0.012 ng/mL (0.000-0.034); Total Protein 7.9 g/dL (6.3-8.2)
[2019-03-02 15:31] VITALS: BP 125/82; PULSE 86; O2SAT 99
--- NOTE | 2019-03-02 15:31 | ERPHSYRPT ---
- History of Present Illness Time Seen by Provider: 03/02/19 15:28 Source: patient Exam Limitations: no limitations Patient Subjective Stated Complaint: Pt began having chest pain and her heart began racing, she stopped by the fire dept and said her pulse was 150+ and blood pressure was systolic 158, pt had been to Dr. Rizzo yesterday and was told that she had mastitis and needed to tack picker a prescription that she hasn't gotten as of now, when pt arrived her pulse was 103 and bp was normal Triage Nursing Assessment: vitals wnl, denies pain, heart sounds normal, skin N/ W/D, pulses normal, doesn't appear to be in any distress at this time, Physician History: Pt began having chest pain and her heart began racing, she stopped by the fire dept and said her pulse was 150+ and blood pressure was systolic 158, pt had been to Dr. Rizzo yesterday and was told that she had mastitis and needed to tack picker a prescription that she hasn't gotten as of now, when pt arrived her pulse was 103 and bp was normal Timing/Duration: today Severity: moderate Associated Symptoms: other (palpitations) Allergies/Adverse Reactions: hydromorphone HCl [From Dilaudid] Allergy (Severe, Verified 02/06/19 11:01) Anaphylactic Reaction azithromycin [From Zithromax] Allergy (Intermediate, Verified 02/06/19 11:01) erythromycin base [Erythromycin Base] Allergy (Mild, Verified 02/06/19 11:01) erenumab-aooe [From Aimovig Autoinjector] Allergy (Verified 02/06/19 11:01) morphine Adverse Reaction (Verified 02/06/19 11:01) Hives Home Medications: P-Ephed HCl/Dp-Hydram HCl [Benadryl-D Allergy & Sinus Liq] 10 ml PO Q4H PRN PRN 02/06/19 [History] Hx Tetanus, Diphtheria Vaccination/Date Given: No Hx Influenza Vaccination/Date Given: No Hx Pneumococcal Vaccination/Date Given: No - Review of Systems Constitutional: No Fever, No Chills Eyes: No Symptoms Ears, Nose, & Throat: No Symptoms Respiratory: No Cough, No Dyspnea Cardiac: Chest Pain, Palpitations, No Edema, No Syncope Abdominal/Gastrointestinal: No Abdominal Pain, No Nausea, No Vomiting, No Diarrhea Genitourinary Symptoms: No Dysuria Musculoskeletal: No Back Pain, No Neck Pain Skin: No Rash Neurological: No Dizziness, No Focal Weakness, No Sensory Changes Psychological: No Symptoms Endocrine: No Symptoms All Other Systems: Reviewed and Negative - Past Medical History Pertinent Past Medical History: Yes Neurological History: No Pertinent History ENT History: No Pertinent History Cardiac History: Arrhythmia, Other Respiratory History: No Pertinent History Endocrine Medical History: No Pertinent History Musculoskeletal History: No Pertinent History GI Medical History: No Pertinent History History: No Pertinent History Psycho-Social History: No Pertinent History Female Reproductive Disorders: No Pertinent History Other Medical History: kidney stones; a-fib - Past Surgical History Past Surgical History: Yes Neuro Surgical History: No Pertinent History Cardiac: No Pertinent History Respiratory: No Pertinent History Gastrointestinal: Appendectomy Genitourinary: No Pertinent History Musculoskeletal: No Pertinent History Female Surgical History: Dilation & Curettage, Section, Tubal Ligation Other Surgical History: D&C, states ultrasound and stress showed irreg. heartbeat and chest pain in past few months, clinical geneticist unable to find irregular heartbeat. tubal 12/03/15 - Social History Smoking Status: Current every day smoker How long have you smoked: 12 Exposure to second hand smoke: No Drug Use: none Patient Lives Alone: No - Female History Hx Now: No (tubal) - Nursing Vital Signs Nursing Vital Signs: Initial Vital Signs Pulse Rate 88 03/02/19 15:25 Pain Scale Pain Intensity 0 - Physical Exam General Appearance: no apparent distress, alert Eye Exam: PERRL/EOMI, eyes nml inspection Ears, Nose, Throat Exam: normal ENT inspection, TMs normal, pharynx normal, moist mucous membranes Neck Exam: normal inspection, non-tender, supple, full range of motion Respiratory Exam: normal breath sounds, lungs clear, No respiratory distress Cardiovascular Exam: regular rate/rhythm, normal heart sounds, normal peripheral pulses Gastrointestinal/Abdomen Exam: soft, normal bowel sounds, No tenderness, No mass Back Exam: normal inspection, normal range of motion, No CVA tenderness, No vertebral tenderness Extremity Exam: normal inspection, normal range of motion, pelvis stable Neurologic Exam: alert, oriented x 3, cooperative, normal mood/affect, nml cerebellar function, nml station & gait, sensation nml, No motor deficits Skin Exam: normal color, warm, dry, No rash Lymphatic Exam: No adenopathy - Course Nursing assessment & vital signs reviewed: Yes EKG Interpreted by Me: Sinus Tach Rhythm Strip: Sinus Tachycardia Ordered Tests: Active Orders 24 hr Category Date Time Status EKG-ER Only STAT Care 03/02/19 14:12 Active CBC W DIFF Stat Lab 03/02/19 14:10 Completed CMP Stat Lab 03/02/19 14:10 Completed FREE TRIODOTHYRONINE Stat Lab 03/02/19 14:40 Results TROPONIN Stat Lab 03/02/19 14:10 Completed TSH, 3RD Generation Stat Lab 03/02/19 14:40 Results Medication Summary Discontinued Medications Generic Name Dose Route Start Last Admin Trade Name Freq PRN Reason Stop Dose Admin Sodium Chloride 1,000 mls @ 999 mls/hr 03/02/19 14:12 03/02/19 14:56 Sodium Chloride 0.9% 1000 Ml IV 03/02/19 15:12 999 mls/hr .Q1H1M STA Administration Sodium Chloride Confirm 03/02/19 14:46 Sodium Chloride 0.9% 1000 Ml Administered 03/02/19 14:47 Dose 1,000 mls @ ud .ROUTE .STK-MED ONE Lab/Rad Data: Laboratory Result Diagrams 03/02/19 14:10 03/02/19 14:10 Laboratory Results 03/02/19 03/02/19 03/02/19 Range/Units 14:40 14:40 14:10 WBC (4.0-10.5) K/mm3 RBC (4.1-5.4) M/mm3 Hgb (12.0-16.0) gm/dl Hct (35-47) % MCV (78-100) fl MCH (26-32) pg MCHC (32-36) g/dl RDW (11.5-14.0) % Plt Count (150-450) K/mm3 MPV (6-9.5) fl Gran % (36.0-66.0) % Eos # (Auto) (0-0.5) Absolute Lymphs (auto) (1.0-4.6) Absolute Monos (auto) (0.0-1.3) Lymphocytes % (24.0-44.0) % Monocytes % (0.0-12.0) % Eosinophils % (0.00-5.0) % Basophils % (0.0-0.4) % Absolute Granulocytes (1.4-6.9) Basophils # (0-0.4) Sodium 140 (137-145) mmol/L Potassium 3.8 (3.5-5.1) mmol/L Chloride 106 (98-107) mmol/L Carbon Dioxide 21 L (22-30) mmol/L Anion Gap 15.5 H (5-15) MEQ/L BUN 12 (7-17) mg/dL Creatinine 0.66 (0.52-1.04) mg/dL Estimated GFR > 60.0 ML/MIN Glucose 98 (74-106) mg/dL Calcium 9.8 (8.4-10.2) mg/dL Total Bilirubin 0.20 (0.2-1.3) mg/dL AST 21 (14-36) U/L ALT 21 (0-35) U/L Alkaline Phosphatase 67 (38-126) U/L Troponin I < 0.012 (0.000-0.034) ng/mL Serum Total Protein 7.9 (6.3-8.2) g/dL Albumin 4.2 (3.5-5.0) g/dL Free T4 1.09 (0.76-1.46) ng/dL Free T3 pg/mL 3.28 (2.77-5.27) pg/mL TSH 3rd Generation Pending 03/02/19 Range/Units 14:10 WBC 8.3 (4.0-10.5) K/mm3 RBC 4.57 (4.1-5.4) M/mm3 Hgb 12.7 (12.0-16.0) gm/dl Hct 39.2 (35-47) % MCV 85.8 (78-100) fl MCH 27.8 (26-32) pg MCHC 32.4 (32-36) g/dl RDW 16.0 H (11.5-14.0) % Plt Count 275 (150-450) K/mm3 MPV 9.6 H (6-9.5) fl Gran % 65.5 (36.0-66.0) % Eos # (Auto) 0.07 (0-0.5) Absolute Lymphs (auto) 2.18 (1.0-4.6) Absolute Monos (auto) 0.62 (0.0-1.3) Lymphocytes % 26.2 (24.0-44.0) % Monocytes % 7.4 (0.0-12.0) % Eosinophils % 0.8 (0.00-5.0) % Basophils % 0.1 (0.0-0.4) % Absolute Granulocytes 5.45 (1.4-6.9) Basophils # 0.01 (0-0.4) Sodium (137-145) mmol/L Potassium (3.5-5.1) mmol/L Chloride (98-107) mmol/L Carbon Dioxide (22-30) mmol/L Anion Gap (5-15) MEQ/L BUN (7-17) mg/dL Creatinine (0.52-1.04) mg/dL Estimated GFR ML/MIN Glucose (74-106) mg/dL Calcium (8.4-10.2) mg/dL Total Bilirubin (0.2-1.3) mg/dL AST (14-36) U/L ALT (0-35) U/L Alkaline Phosphatase (38-126) U/L Troponin I (0.000-0.034) ng/mL Serum Total Protein (6.3-8.2) g/dL Albumin (3.5-5.0) g/dL Free T4 (0.76-1.46) ng/dL Free T3 pg/mL (2.77-5.27) pg/mL TSH 3rd Generation - Progress Progress: improved Counseled pt/family regarding: lab results, diagnosis, need for follow-up - Departure Departure Disposition: Home Clinical Impression: Palpitations with regular cardiac rhythm Condition: Stable Critical Care Time: No Referrals: ERNESTO CRUMP [Primary Care Provider] - Instructions: Palpitations (DC) Additional Instructions: Discharge/Care Plan TAMRA ALVAREZ was seen on 03/02/19 in the Emergency Room. The patient was counseled regarding Diagnosis,Lab results, Imaging studies, need for follow up and when to return to the Emergency Room. Prescriptions given: Discharge Note I have spoken with the patient and/or caregivers. I have explained the patient' s condition, diagnosis and treatment plan based on the information available to me at this time. I have answered the patient's and/or caregiver's questions and addressed any concerns. The patient and/or caregivers have as good understanding of the patient's diagnosis, condition and treatment plan as can be expected at this point. The vital signs have been stable. The patient's condition is stable and appropriate for discharge from the emergency department. The patient will pursue further outpatient evaluation with the primary care physician or other designated or consulting physician as outlined in the discharge instructions. The patient and/or caregivers are agreeable to this plan of care and follow-up instructions have been explained in detail. The patient and/or caregivers have received these instruction. The patient/and or caregivers are aware that any significant change in condition or worsening of symptoms should prompt an immediate return to this or the closest emergency department or call 911. TAMRA ALVAREZ was seen on 03/02/19 n the Emergency Room. At that time you were treated for an emergent condition, during your visit Laboratory, Radiology and/or other procedures may have been ordered. It is very important that you follow-up with your Primary Care Physician ERNESTO CRUMP within the next 24-48 hours to review your Emergency Room visit and the final results of testing that was ordered. Some test results such as Urine Cultures, Blood Cultures, and other cultures if ordered will not be finalized for 24-48 hours. If you do not have a Primary Care Provider please call the medical records department at [phone] ext [phone] to obtain a copy of your results or you may sign into our patient portal to obtain these results by visiting us @ [email or web address] and completing the following steps: 1. Click on the Patient Portal link 2. Click the Patient Self Enrollment Link to complete the enrollment form and entering your 3. Once the enrollment form is completed you will receive an email with a temporary ID and password at the email address you provided. 4. Next choose a user name and password. Your user name must be at least 4 characters long and your password must be at least 4 characters long. 5. Choose a security question from the list and provide your answer to the question. If you already have signed into the Health Portal you may access your Health Care Information 19/12 by the following steps: 1. Login to our website @ [email or web address] 2. Enter your original user name and password. FAQS The [facility] Health Portal is an online tool that contains your Lab Results, Radiology Reports, Visit History, Discharge Instructions and Health Summary Lab and Radiology Results will not be available for 72 hours on the portal. The Portal is a secure site, passwords are encryted and URLs are re-written so they cannot be copied and pasted. You and authorized family members are the only ones who can access your Portal. Also there is a timeout feature that protects your information if you leave the Portal page open. If you have technical difficulty please use the Contact Us link on the page this will allow you to submit any questions you have regarding the Portal or you may contact the Medical Record Department at [phone] ext [phone].
[2019-03-02 15:43] LABS: FREE TRIODOTHYRONINE 3.28 pg/mL (2.77-5.27)
[2019-03-02 15:56] LABS: TSH, 3RD Generation 0.902 mIU/L (0.47-4.68)
== END 2019-03-02 16:18 | disposition home or self-care (01) ==
LOC: ED 14:08
DX: R00.2 Palpitations (principal)
CPT/HCPCS: 36415; 80053; 84439; 84443; 84481; 84484; 85025; 93005; 96360; 99284

== ENCOUNTER 2019-04-01 11:56 | Emergency (ER) | payer OTHER ==
--- NOTE | 2019-04-01 12:24 | ERPHSYRPT ---
- History of Present Illness Time Seen by Provider: 04/01/19 12:24 Source: patient, family Exam Limitations: no limitations Physician History: 33 y/o white female presents with 2 to 3 day h/o of productive cough of greenish sputum. no cp, no abd pain, no n/v/d Timing/Duration: day(s) (2 to 3 ) Activities at Onset: none Severity of Dyspnea-Max: none Severity of Dyspnea-Current: none Possible Cause: no prior episodes Modifying Factors: Improves With: coughing Associated Symptoms: anxiety, cough, productive cough Allergies/Adverse Reactions: hydromorphone HCl [From Dilaudid] Allergy (Severe, Verified 02/06/19 11:01) Anaphylactic Reaction azithromycin [From Zithromax] Allergy (Intermediate, Verified 02/06/19 11:01) erythromycin base [Erythromycin Base] Allergy (Mild, Verified 02/06/19 11:01) erenumab-aooe [From Aimovig Autoinjector] Allergy (Verified 02/06/19 11:01) morphine Adverse Reaction (Verified 02/06/19 11:01) Hives Home Medications: Atenolol 10 mg PO DAILY 04/01/19 [History] Lisinopril 5 mg [Zestril 5 MG] 5 mg PO DAILY 04/01/19 [History] Hx Tetanus, Diphtheria Vaccination/Date Given: No Hx Influenza Vaccination/Date Given: No Hx Pneumococcal Vaccination/Date Given: No - Review of Systems Constitutional: No Symptoms Eyes: No Symptoms Ears, Nose, & Throat: No Symptoms Respiratory: Cough Cardiac: No Symptoms Abdominal/Gastrointestinal: No Symptoms Genitourinary Symptoms: No Symptoms Musculoskeletal: No Symptoms Skin: No Symptoms Neurological: No Symptoms Psychological: No Symptoms Endocrine: No Symptoms Hematologic/Lymphatic: No Symptoms Immunological/Allergic: No Symptoms All Other Systems: Reviewed and Negative - Past Medical History Pertinent Past Medical History: Yes Neurological History: No Pertinent History ENT History: No Pertinent History Cardiac History: Arrhythmia, Other Respiratory History: No Pertinent History Endocrine Medical History: No Pertinent History Musculoskeletal History: No Pertinent History GI Medical History: No Pertinent History History: No Pertinent History Psycho-Social History: No Pertinent History Female Reproductive Disorders: No Pertinent History Other Medical History: kidney stones; a-fib - Past Surgical History Past Surgical History: Yes Neuro Surgical History: No Pertinent History Cardiac: No Pertinent History Respiratory: No Pertinent History Gastrointestinal: Appendectomy Genitourinary: No Pertinent History Musculoskeletal: No Pertinent History Female Surgical History: Dilation & Curettage, Section, Tubal Ligation Other Surgical History: D&C, states ultrasound and stress showed irreg. heartbeat and chest pain in past few months, wet end operator unable to find irregular heartbeat. tubal 12/03/15 - Social History Smoking Status: Current every day smoker How long have you smoked: 12 Exposure to second hand smoke: No Drug Use: none Patient Lives Alone: No - Nursing Vital Signs Nursing Vital Signs: Initial Vital Signs Temperature 97.8 F 04/01/19 12:20 Pulse Rate 86 04/01/19 12:20 Respiratory Rate 20 04/01/19 12:20 Blood Pressure 108/65 04/01/19 12:20 O2 Sat by Pulse Oximetry 100 04/01/19 12:20 Pain Scale Pain Intensity 0 - Physical Exam General Appearance: no apparent distress, alert, anxiety Eye Exam: PERRL/EOMI Ears, Nose, Throat Exam: hearing grossly normal, normal ENT inspection, normal pharynx Neck Exam: normal inspection, non-tender, supple, full range of motion Respiratory Exam: normal breath sounds, lungs clear, No chest tenderness, No respiratory distress Cardiovascular/Chest Exam: normal heart sounds, regular rate/rhythm, normal peripheral pulses, No murmur Abdominal/Gastrointestinal Exam: soft, normal bowel sounds, No tenderness Rectal Exam: not done Extremity Exam: non-tender, normal range of motion, normal inspection Neurologic Exam: alert, oriented x 3, cooperative, senior care manager II-XII nml as tested Skin Exam: normal color, warm, dry Lymphatic Exam: No adenopathy SpO2 Interpretation: normal O2 Delivery: Room Air - Course Nursing assessment & vital signs reviewed: Yes Ordered Tests: Medication Summary Discontinued Medications Generic Name Dose Route Start Last Admin Trade Name Freq PRN Reason Stop Dose Admin Hydrocodone Bitart/Acetaminophen 10 ml 04/01/19 12:46 04/01/19 13:05 Hydrocodone-Acetamin 2.5-108/5 Ml Solution PO 04/01/19 12:47 10 ml STAT STA Administration Hydrocodone Bitart/Acetaminophen Confirm 04/01/19 12:54 Hydrocodone-Acetamin 2.5-108/5 Ml Solution Administered 04/01/19 12:55 Dose 10 ml .ROUTE .STK-MED ONE Ceftriaxone Sodium 1,000 mg 04/01/19 12:46 04/01/19 13:05 Rocephin 1000 Mg Inj IM 04/01/19 12:47 1,000 mg STAT ONE Administration Ceftriaxone Sodium Confirm 04/01/19 12:53 Rocephin 1000 Mg Inj Administered 04/01/19 12:54 Dose 1,000 mg .ROUTE .STK-MED ONE Methylprednisolone Sodium Succinate 125 mg 04/01/19 12:46 04/01/19 13:06 Solu-Medrol 125 Mg IM 04/01/19 12:47 125 mg STAT ONE Administration Methylprednisolone Sodium Succinate Confirm 04/01/19 12:53 Solu-Medrol 125 Mg Administered 04/01/19 12:54 Dose 125 mg .ROUTE .STK-MED ONE - Progress Progress: improved Air Movement: good Progress Note: 04/01/19 14:05 forgot pt only wants liquid meds. cancelled cefdinir and prednisone Blood Culture(s) Obtained: No Antibiotics given: Yes Counseled pt/family regarding: diagnosis, need for follow-up - Departure Departure Disposition: Home Clinical Impression: Bronchitis Condition: Stable Critical Care Time: No Referrals: ERNESTO CRUMP [Primary Care Provider] - Additional Instructions: drink plenty of fluids. take medications as prescribed. follow up with primary doctor for persistent symptoms Prescriptions: Cefdinir 300 mg PO BID 7 Days #14 capsule Cephalexin 250 mg/5 ml Susp [Keflex 250 mg/5 ml Susp] 500 mg PO TID #210 ml Hydrocodone Bit/Acetaminophen [Hydrocodone-Acetaminophen Soln] 10 ml PO Q6H # 120 ml Prednisolone 5 mg/5 ml [Pediapred SOLUTION 5 MG/5 ML] 10 mg PO TID #120 ml Prednisone 5 mg [Deltasone 5 mg] 5 mg PO TID #12 tablet
[2019-04-01] MEDS ORDERED: Rocephin 1000 MG INJ IM ONE (12:46)
[2019-04-01] MEDS ORDERED: HYDROCODONE-ACETAMIN 2.5-108/5 ML SOLUTION PO STA (12:46)
[2019-04-01] MEDS ORDERED: solu-MEDROL 125 MG IM ONE (12:46)
[2019-04-01] MEDS ORDERED: Rocephin 1000 MG INJ ONE (12:53)
[2019-04-01] MEDS ORDERED: solu-MEDROL 125 MG ONE (12:53)
[2019-04-01] MEDS ORDERED: HYDROCODONE-ACETAMIN 2.5-108/5 ML SOLUTION ONE (12:54)
[2019-04-01 14:03] VITALS: BP 114/60; PULSE 82; O2SAT 98
== END 2019-04-01 14:13 | disposition home or self-care (01) ==
LOC: ED 11:56
DX: J40 Bronchitis, not specified as acute or chronic (principal); Z86.79 Personal history of other diseases of the circulatory system; Z87.442 Personal history of urinary calculi
CPT/HCPCS: 96372; 99284; J0696; J2930; A9270-GY

== ENCOUNTER 2019-07-30 10:31 | Emergency (ER) | payer BC ==
--- NOTE | 2019-07-30 11:02 | ERPHSYRPT ---
- History of Present Illness Time Seen by Provider: 07/30/19 10:37 Historian: patient Exam Limitations: no limitations Patient Subjective Stated Complaint: states is being worked up for gallbladder disease. has us yesterday and is having a hida scan . today developed increased ruq abd pain and bloating after eating a salad. also having nausea and constipation. last bm was two days ago Triage Nursing Assessment: ambulated to room per self. skin w/d, color normal. abd large, soft. Physician History: Abdominal bloating x 1 day. This is acute on chronic abdominal pain. She states she has a history of chronic abdominal pain. Negative gallbladder ultrasound yesterday. Location: epigastric Quality: bloating Radiation: none Severity: moderate Duration: acute on chronic Timing: gradual Modifying factors/associated signs and symptoms: home OTC medications Allergies/Adverse Reactions: hydromorphone HCl [From Dilaudid] Allergy (Severe, Verified 07/30/19 10:45) Anaphylactic Reaction azithromycin [From Zithromax] Allergy (Intermediate, Verified 07/30/19 10:46) Hives erythromycin base [Erythromycin Base] Allergy (Mild, Verified 07/30/19 10:46) Tightness of Throat morphine Adverse Reaction (Verified 07/30/19 10:45) Hives Home Medications: Erenumab-Aooe [Aimovig Autoinjector] 1 ea SQ UD 07/30/19 [History] Hx Tetanus, Diphtheria Vaccination/Date Given: No Hx Influenza Vaccination/Date Given: No Hx Pneumococcal Vaccination/Date Given: No - Review of Systems Constitutional: No Fever, No Chills Eyes: No Symptoms Ears, Nose, & Throat: No Symptoms Respiratory: No Cough, No Dyspnea Cardiac: No Chest Pain, No Edema, No Syncope Abdominal/Gastrointestinal: Abdominal Pain, Nausea, Diarrhea, No Vomiting Genitourinary Symptoms: No Dysuria Musculoskeletal: No Back Pain, No Neck Pain Skin: No Rash Neurological: No Dizziness, No Focal Weakness, No Sensory Changes Psychological: No Symptoms Endocrine: No Symptoms All Other Systems: Reviewed and Negative - Past Medical History Pertinent Past Medical History: Yes Neurological History: No Pertinent History ENT History: No Pertinent History Cardiac History: Arrhythmia, Other Respiratory History: No Pertinent History Endocrine Medical History: No Pertinent History Musculoskeletal History: No Pertinent History GI Medical History: No Pertinent History History: No Pertinent History Psycho-Social History: No Pertinent History Female Reproductive Disorders: No Pertinent History Other Medical History: kidney stones; a-fib - Past Surgical History Past Surgical History: Yes Neuro Surgical History: No Pertinent History Cardiac: No Pertinent History Respiratory: No Pertinent History Gastrointestinal: Appendectomy Genitourinary: No Pertinent History Musculoskeletal: No Pertinent History Female Surgical History: Dilation & Curettage, Section, Tubal Ligation Other Surgical History: D&C, states ultrasound and stress showed irreg. 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 tubal 12/03/15 - Social History Smoking Status: Never smoker How long have you smoked: 12 Exposure to second hand smoke: No Drug Use: none Patient Lives Alone: No - Female History Hx Last Menstrual Period: 06/29/19 Hx Now: No - Nursing Vital Signs Nursing Vital Signs: Initial Vital Signs Temperature 98.1 F 07/30/19 10:38 Pulse Rate 98 H 07/30/19 10:38 Respiratory Rate 16 07/30/19 10:38 Blood Pressure 122/83 07/30/19 10:38 O2 Sat by Pulse Oximetry 99 07/30/19 10:38 Pain Scale Pain Intensity 3 - Physical Exam General Appearance: no apparent distress, alert Eye Exam: PERRL/EOMI, eyes nml inspection Ears, Nose, Throat Exam: normal ENT inspection, pharynx normal, moist mucous membranes Neck Exam: normal inspection, non-tender, supple, full range of motion Respiratory Exam: normal breath sounds, lungs clear, No respiratory distress Cardiovascular Exam: regular rate/rhythm, normal heart sounds Gastrointestinal/Abdomen Exam: soft, other (No abdominal tenderness. No rebound or guarding ), No tenderness, No mass Back Exam: normal inspection, normal range of motion, No CVA tenderness, No vertebral tenderness Extremity Exam: normal inspection, normal range of motion, pelvis stable Neurologic Exam: alert, oriented x 3, cooperative, normal mood/affect, nml cerebellar function, sensation nml, No motor deficits Skin Exam: normal color, warm, dry SpO2: 99 Ordered Tests: Active Orders 24 hr Category Date Time Status IV Insertion STAT Care 07/30/19 10:57 Active CHEST 2 VIEWS (PA AND LAT) Stat Exams 07/30/19 10:57 Completed CBC W DIFF Stat Lab 07/30/19 11:35 Completed CMP Stat Lab 07/30/19 11:35 Completed HCG,QUALITATIVE URINE Stat Lab 07/30/19 11:12 Completed LIPASE Stat Lab 07/30/19 11:35 Completed Lactic Acid Stat Lab 07/30/19 11:33 Completed UA W/RFX UR CULTURE Stat Lab 07/30/19 11:12 Completed Medication Summary Discontinued Medications Generic Name Dose Route Start Last Admin Trade Name Soloq PRN Reason Stop Dose Admin Sodium Chloride 1,000 mls @ 999 mls/hr 07/30/19 10:57 07/30/19 11:31 Sodium Chloride 0.9% 1000 Ml IV 07/30/19 11:57 Not Given .Q1H1M STA Ketorolac Tromethamine 30 mg 07/30/19 10:57 07/30/19 11:32 Toradol 30 Mg Injection IV 07/30/19 10:58 Not Given STAT ONE Ondansetron HCl 4 mg 07/30/19 10:57 07/30/19 11:32 Zofran 4 Mg/2 Ml Vial IV 07/30/19 10:58 Not Given STAT ONE Lab/Rad Data: Laboratory Result Diagrams 07/30/19 11:35 07/30/19 11:35 Laboratory Results 07/30/19 07/30/19 07/30/19 Range/Units 11:35 11:35 11:33 WBC 6.4 (4.0-10.5) K/mm3 RBC 4.26 (4.1-5.4) M/mm3 Hgb 11.4 L (12.0-16.0) gm/dl Hct 36.6 (35-47) % MCV 85.9 (78-100) fl MCH 26.8 (26-32) pg MCHC 31.1 L (32-36) g/dl RDW 15.1 H (11.5-14.0) % Plt Count 279 (150-450) K/mm3 MPV 10.0 (7.5-11.0) fl Gran % 55.6 (36.0-66.0) % Eos # (Auto) 0.06 (0-0.5) Absolute Lymphs (auto) 2.32 (1.0-4.6) Absolute Monos (auto) 0.44 (0.0-1.3) Lymphocytes % 36.3 (24.0-44.0) % Monocytes % 6.9 (0.0-12.0) % Eosinophils % 0.9 (0.00-5.0) % Basophils % 0.3 (0.0-0.4) % Absolute Granulocytes 3.55 (1.4-6.9) Basophils # 0.02 (0-0.4) Sodium 140 (137-145) mmol/L Potassium 3.7 (3.5-5.1) mmol/L Chloride 110 H (98-107) mmol/L Carbon Dioxide 23 (22-30) mmol/L Anion Gap 11.3 (5-15) MEQ/L BUN 12 (7-17) mg/dL Creatinine 0.68 (0.52-1.04) mg/dL Estimated GFR > 60.0 ML/MIN Glucose 100 (74-106) mg/dL Lactic Acid 0.7 (0.4-2.0) Calcium 9.3 (8.4-10.2) mg/dL Total Bilirubin 0.30 (0.2-1.3) mg/dL AST 20 (14-36) U/L ALT 15 (0-35) U/L Alkaline Phosphatase 63 (38-126) U/L Serum Total Protein 7.5 (6.3-8.2) g/dL Albumin 4.0 (3.5-5.0) g/dL Lipase 92 (23-300) U/L Urine Color (YELLOW) Urine Appearance (CLEAR) Urine pH (5-6) Ur Specific [place] (1.005-1.025) Urine Protein (Negative) Urine Ketones (NEGATIVE) Urine Blood (0-5) Thang/ul Urine Nitrite (NEGATIVE) Urine Bilirubin (NEGATIVE) Urine Urobilinogen (0-1) mg/dL Ur Leukocyte Esterase (NEGATIVE) Urine WBC (Auto) (0-5) /HPF Urine RBC (Auto) (0-2) /HPF U Epithel Cells (Auto) (FEW) /HPF Urine Bacteria (Auto) (NEGATIVE) /HPF Urine Mucus (Auto) (NEGATIVE) /HPF Urine Culture Reflexed (NO) Urine Glucose (NEGATIVE) mg/dL Urine HCG, Qual (Negative) 07/30/19 07/30/19 Range/Units 11:12 11:12 WBC (4.0-10.5) K/mm3 RBC (4.1-5.4) M/mm3 Hgb (12.0-16.0) gm/dl Hct (35-47) % MCV (78-100) fl MCH (26-32) pg MCHC (32-36) g/dl RDW (11.5-14.0) % Plt Count (150-450) K/mm3 MPV (7.5-11.0) fl Gran % (36.0-66.0) % Eos # (Auto) (0-0.5) Absolute Lymphs (auto) (1.0-4.6) Absolute Monos (auto) (0.0-1.3) Lymphocytes % (24.0-44.0) % Monocytes % (0.0-12.0) % Eosinophils % (0.00-5.0) % Basophils % (0.0-0.4) % Absolute Granulocytes (1.4-6.9) Basophils # (0-0.4) Sodium (137-145) mmol/L Potassium (3.5-5.1) mmol/L Chloride (98-107) mmol/L Carbon Dioxide (22-30) mmol/L Anion Gap (5-15) MEQ/L BUN (7-17) mg/dL Creatinine (0.52-1.04) mg/dL Estimated GFR ML/MIN Glucose (74-106) mg/dL Lactic Acid (0.4-2.0) Calcium (8.4-10.2) mg/dL Total Bilirubin (0.2-1.3) mg/dL AST (14-36) U/L ALT (0-35) U/L Alkaline Phosphatase (38-126) U/L Serum Total Protein (6.3-8.2) g/dL Albumin (3.5-5.0) g/dL Lipase (23-300) U/L Urine Color YELLOW (YELLOW) Urine Appearance CLOUDY (CLEAR) Urine pH 5.0 (5-6) Ur Specific [place] 1.031 (1.005-1.025) Urine Protein NEGATIVE (Negative) Urine Ketones NEGATIVE (NEGATIVE) Urine Blood NEGATIVE (0-5) Thang/ul Urine Nitrite NEGATIVE (NEGATIVE) Urine Bilirubin NEGATIVE (NEGATIVE) Urine Urobilinogen 2 (0-1) mg/dL Ur Leukocyte Esterase NEGATIVE (NEGATIVE) Urine WBC (Auto) 0-2 (0-5) /HPF Urine RBC (Auto) 3-5 (0-2) /HPF U Epithel Cells (Auto) FEW (FEW) /HPF Urine Bacteria (Auto) RARE (NEGATIVE) /HPF Urine Mucus (Auto) SLIGHT (NEGATIVE) /HPF Urine Culture Reflexed NO (NO) Urine Glucose NEGATIVE (NEGATIVE) mg/dL Urine HCG, Qual NEGATIVE (Negative) - Progress Progress: improved Progress Note: 07/30/19 11:02 differential diagnosis includes kidney stone, compression fracture, infection, UTI, triple AAA - basic labs including: CBC, lipase, CMP, UA, urine - insert IV for fluids, pain meds, nausea control - consider imaging, although negative imaging thus far 07/30/19 12:07 Work up largely negative. CXR shows possible atelectsis. Less likely to be PNA based on history, physical, and labs. Patient should continue her work up for chronic abdominal bloating with here scheduled HIDA scan. Plan of care was discussed with patient and patients family: all questions answered. They are agreeable to be discharged home and both verbal and printed discharge instructions were provided. The patient and patients family agreed to seek outpatient follow up as discussed. They were given strict instructions to return to the emergency department for worsening symptoms or any other emergent concerns. They verbalized understanding. Counseled pt/family regarding: drug and/or alcohol abuse, lab results, diagnosis , need for follow-up - Departure Departure Disposition: Home, Extended Care Facility Clinical Impression: Abdominal bloating Condition: Stable Critical Care Time: No Referrals: ERNESTO CRUMP [Primary Care Provider] - Instructions: Acute Abdomen (Belly Pain), Adult (DC)
--- NOTE | 2019-07-30 11:24 | XRAY ---
Indication: Abdomen distention and discomfort. Comparison: February 06, 2019. PA/lateral chest now demonstrates hazy right intrahilar infiltrate/atelectasis and tiny calcified granuloma. Remaining heart, lungs, and bony thorax normal.
[2019-07-30] MEDS: Sodium Chloride 0.9% 1000 ML 1,000 ML IV STA (11:31)
[2019-07-30] MEDS: TORAdol 30 mg Injection IV ONE (11:32)
[2019-07-30] MEDS: Zofran 4 MG/2 ML VIAL IV ONE (11:32)
[2019-07-30 11:38] LABS: Appearance CLOUDY (CLEAR); Bacteria RARE /HPF (NEGATIVE); Bilirubin NEGATIVE (NEGATIVE); Blood NEGATIVE Ery/ul (0-5); Epithelial Cells FEW /HPF (FEW); Glucose NEGATIVE (NEGATIVE); Ketones NEGATIVE (NEGATIVE); Leukocyte Esterase NEGATIVE (NEGATIVE); Mucus SLIGHT /HPF (NEGATIVE); Nitrite NEGATIVE (NEGATIVE); Protein,Urine Dip NEGATIVE (Negative); Specific Gravity 1.031 (1.005-1.025); Urobilinogen 2 mg/dL (0-1); WBC 0-2 /HPF (0-5)
[2019-07-30 11:42] LABS: Absolute Neutrophil Ct (ANC) 3.55 (1.4-6.9); BASOPHIL % 0.3 % (0.0-0.4); Basophil (Absolute #) 0.02 (0-0.4); Eosinophil % 0.9 % (0.00-5.0); Eosinophil (Absolute #) 0.06 (0-0.5); Hematocrit 36.6 % (35-47); Hemoglobin 11.4 gm/dl (12.0-16.0); Lymphocyte (Absolute #) 2.32 (1.0-4.6); Lymphocytes % 36.3 % (24.0-44.0); Mean Cell Volume 85.9 fl (78-100); Mean Corpuscular Hemoglobin 26.8 pg (26-32); Mean Corpuscular Hgb Concent. 31.1 g/dl (32-36); Monocyte (Absolute #) 0.44 (0.0-1.3); Monocytes % 6.9 % (0.0-12.0); Neutrophil % 55.6 % (36.0-66.0); Platelet Count 279 K/mm3 (150-450); Red Blood Count 4.26 M/mm3 (4.1-5.4); Red Cell Distribution Width 15.1 % (11.5-14.0); White Blood Count 6.4 K/mm3 (4.0-10.5)
[2019-07-30 11:55] LABS: ALKALINE PHOSPHATASE 63 U/L (38-126); ANION GAP 11.3 MEQ/L (5-15); BLOOD UREA NITROGEN 12 mg/dL (7-17); CHLORIDE 110 mmol/L (98-107); Calcium 9.3 mg/dL (8.4-10.2); Carbon Dioxide 23 mmol/L (22-30); Creatinine 1 0.68 mg/dL (0.52-1.04); Glucose 100 mg/dL (74-106); LIPASE 92 U/L (23-300); Potassium 3.7 mmol/L (3.5-5.1); SGOT/AST 20 U/L (14-36); SGPT/ALT 15 U/L (0-35); SODIUM 140 mmol/L (137-145); Total Protein 7.5 g/dL (6.3-8.2)
[2019-07-30 12:20] VITALS: BP 108/68; PULSE 76; O2SAT 97
== END 2019-07-30 12:19 | disposition home or self-care (01) ==
LOC: ED 10:31
DX: R14.0 Abdominal distension (gaseous) (principal)
CPT/HCPCS: 36415; 71046; 80053; 81001; 83605; 83690; 84703; 85025; 99284

== ENCOUNTER 2019-09-19 10:42 | Emergency (ER) | payer BC ==
--- NOTE | 2019-09-19 11:18 | ERPHSYRPT ---
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 She presents with myalgias and arthralgias that began yesterday afternoon. The symptoms have resolved. She denies shortness of breath and she denies cough. She is however feeling weak. She was having sweats and felt hot although her temperature was normal. Patient works at [employer]. She is not working on the COVID-19 unit there. However, there are several employees in the area that she does work in that have been tested for the COVID-19 virus. They results are pending. Patient has a who works at a [employer] and there have been positive COVID 19 patient's there at the [employer] as well. Patient was working today and felt very dizzy walking along the [place] and fell into the wall. She complains of headache at this time. Her temperature on arrival was normal. Patient states when she awoke the patient was on the floor and people were around her. She has no nausea vomiting or diarrhea. She has no abdominal pain and no chest pain. Timing/Duration: yesterday Severity: mild Associated Symptoms: weakness, other (Diaphoresis) Allergies/Adverse Reactions: hydromorphone HCl [From Dilaudid] Allergy (Severe, Verified 07/30/19 10:45) Anaphylactic Reaction azithromycin [From Zithromax] Allergy (Intermediate, Verified 07/30/19 10:46) Hives erythromycin base [Erythromycin Base] Allergy (Mild, Verified 07/30/19 10:46) Tightness of Throat morphine Adverse Reaction (Verified 07/30/19 10:45) Hives Home Medications: Erenumab-Aooe [Aimovig Autoinjector] 1 ea SQ UD 07/30/19 [History] Hx Tetanus, Diphtheria Vaccination/Date Given: No Hx Influenza Vaccination/Date Given: No Hx Pneumococcal Vaccination/Date Given: No Travel Risk - International Travel Have you traveled outside of the country in past 3 weeks: No Have you or anyone close to you been diagnosed with or: No Do your reside in a community with a known COVID-19 case?: Yes If Yes where:: [place] - Coronavirus Screening Has patient experienced Coronavirus symptoms: Yes Symptoms experienced: fever(equal or > 100.4 F), muscle pain, weakness Date of fever onset:: 09/18/19 - Review of Systems Constitutional: Weakness Eyes: No Symptoms Ears, Nose, & Throat: No Symptoms Respiratory: No Symptoms Cardiac: No Symptoms Abdominal/Gastrointestinal: No Symptoms Genitourinary Symptoms: No Symptoms Musculoskeletal: No Symptoms Skin: No Symptoms Neurological: Dizziness, Headache Psychological: No Symptoms Endocrine: No Symptoms Hematologic/Lymphatic: No Symptoms Immunological/Allergic: No Symptoms All Other Systems: Reviewed and Negative - Past Medical History Pertinent Past Medical History: Yes Neurological History: No Pertinent History ENT History: No Pertinent History Cardiac History: Arrhythmia, Other Respiratory History: No Pertinent History Endocrine Medical History: No Pertinent History Musculoskeletal History: No Pertinent History GI Medical History: No Pertinent History History: No Pertinent History Psycho-Social History: No Pertinent History Female Reproductive Disorders: No Pertinent History Other Medical History: kidney stones; a-fib - Past Surgical History Past Surgical History: Yes Neuro Surgical History: No Pertinent History Cardiac: No Pertinent History Respiratory: No Pertinent History Gastrointestinal: Appendectomy Genitourinary: No Pertinent History Musculoskeletal: No Pertinent History Female Surgical History: Dilation & Curettage, Section, Tubal Ligation Other Surgical History: D&C, states ultrasound and stress showed irreg. 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 tubal 12/03/15 - Social History Smoking Status: Current every day smoker How long have you smoked: 12 Exposure to second hand smoke: Yes Drug Use: none Patient Lives Alone: No - Female History Hx Now: No (tubal) - Nursing Vital Signs Nursing Vital Signs: Initial Vital Signs Temperature 98.6 F 09/19/19 10:59 Pulse Rate 84 09/19/19 10:59 Respiratory Rate 19 09/19/19 10:59 Blood Pressure 138/82 09/19/19 10:59 O2 Sat by Pulse Oximetry 97 09/19/19 10:59 Pain Scale Pain Intensity 3 - Physical Exam General Appearance: mild distress, alert, anxiety Eye Exam: PERRL/EOMI, eyes nml inspection Ears, Nose, Throat Exam: normal ENT inspection, moist mucous membranes Neck Exam: normal inspection, non-tender, supple, full range of motion Respiratory Exam: normal breath sounds, lungs clear, airway intact, No chest tenderness, No respiratory distress Cardiovascular Exam: regular rate/rhythm, normal heart sounds, normal peripheral pulses Gastrointestinal/Abdomen Exam: soft, normal bowel sounds, No tenderness Pelvic Exam: not done Rectal Exam: not done Back Exam: normal inspection, normal range of motion, No CVA tenderness Extremity Exam: normal inspection, normal range of motion, pelvis stable Neurologic Exam: alert, oriented x 3, cooperative, analysis tester II-XII nml as tested, normal mood/affect, nml cerebellar function, nml station & gait Skin Exam: normal color, warm, dry Lymphatic Exam: No adenopathy SpO2 Interpretation: normal SpO2: 97 O2 Delivery: Room Air - Course Nursing assessment & vital signs reviewed: Yes EKG Interpreted by Me: RATE ([id number]), Sinus Rhythm, NORMAL AXIS, Left [place] Deviation , NORMAL INTERVALS, NORMAL QRS, Other (The tachycardia present on the comparison EKG dated March 02, 2019 has resolved. Otherwise the EKGs have not changed.) Ordered Tests: Active Orders 24 hr Category Date Time Status Clean Catch Urine Specimen STAT Care 09/19/19 11:20 Active EKG-ER Only STAT Care 09/19/19 11:20 Active IV Insertion STAT Care 09/19/19 11:20 Active Isolation, Initiate & Maintain Q4H Care 09/19/19 11:12 Active Pulse Oximetry (ED) STAT Care 09/19/19 11:20 Active HEAD WITHOUT CONTRAST [CT] Stat Exams 09/19/19 11:56 Completed CBC W DIFF Stat Lab 09/19/19 10:57 Completed CMP Stat Lab 09/19/19 10:57 Completed ETHYL ALCOHOL Stat Lab 09/19/19 10:57 Completed UA W/RFX UR CULTURE Stat Lab 09/19/19 11:21 Uncollected Urine Triage Profile Stat Lab 09/19/19 11:21 Uncollected Medication Summary Discontinued Medications Generic Name Dose Route Start Last Admin Trade Name Lata PRN Reason Stop Dose Admin Sodium Chloride 1,000 mls @ 999 mls/hr 09/19/19 11:20 09/19/19 11:47 Sodium Chloride 0.9% 1000 Ml IV 09/19/19 12:20 999 mls/hr .Q1H1M STA Administration Sodium Chloride Confirm 09/19/19 11:44 Sodium Chloride 0.9% 1000 Ml Administered 09/19/19 11:45 Dose 1,000 mls @ ud .ROUTE .STK-MED ONE Lab/Rad Data: Laboratory Result Diagrams 09/19/19 10:57 09/19/19 10:57 Laboratory Results 09/19/19 09/19/19 09/19/19 Range/Units 10:57 10:57 10:57 WBC 7.4 (4.0-10.5) K/mm3 RBC 4.36 (4.1-5.4) M/mm3 Hgb 11.6 L (12.0-16.0) gm/dl Hct 37.1 (35-47) % MCV 85.1 (78-100) fl MCH 26.6 (26-32) pg MCHC 31.3 L (32-36) g/dl RDW 15.3 H (11.5-14.0) % Plt Count 302 (150-450) K/mm3 MPV 9.9 (7.5-11.0) fl Gran % 57.3 (36.0-66.0) % Eos # (Auto) 0.06 (0-0.5) Absolute Lymphs (auto) 2.58 (1.0-4.6) Absolute Monos (auto) 0.49 (0.0-1.3) Lymphocytes % 35.0 (24.0-44.0) % Monocytes % 6.6 (0.0-12.0) % Eosinophils % 0.8 (0.00-5.0) % Basophils % 0.3 (0.0-0.4) % Absolute Granulocytes 4.23 (1.4-6.9) Basophils # 0.02 (0-0.4) Sodium 142 (137-145) mmol/L Potassium 4.0 (3.5-5.1) mmol/L Chloride 111 H (98-107) mmol/L Carbon Dioxide 20 L (22-30) mmol/L Anion Gap 13.6 (5-15) MEQ/L BUN 13 (7-17) mg/dL Creatinine 0.59 (0.52-1.04) mg/dL Estimated GFR > 60.0 ML/MIN Glucose 92 (74-106) mg/dL Calcium 9.5 (8.4-10.2) mg/dL Total Bilirubin 0.30 (0.2-1.3) mg/dL AST 19 (14-36) U/L ALT 17 (0-35) U/L Alkaline Phosphatase 61 (38-126) U/L Serum Total Protein 7.7 (6.3-8.2) g/dL Albumin 4.1 (3.5-5.0) g/dL Ethyl Alcohol < 10 (0-10) mg/dL Influenza Type A Ag NEGATIVE (NEGATIVE) Influenza Type B Ag NEGATIVE (NEGATIVE) RSV (PCR) NEGATIVE (Negative) - Progress Progress: improved Progress Note: 09/19/19 12:54 CAT scan of the head reveals no acute intracranial process or pathology Counseled pt/family regarding: lab results, diagnosis, need for follow-up, rad results - Departure Departure Disposition: Home Clinical Impression: Dizziness Condition: Stable Critical Care Time: No Referrals: ERNESTO CRUMP [Primary Care Provider] - Additional Instructions: Drink plenty of fluids. Quarantine yourself in your home until you receive the results of your COVID-19 test. May use Tylenol and ibuprofen for pain management. Follow-up with your primary care physician for any persistent symptoms.
[2019-09-19] MEDS ORDERED: Sodium Chloride 0.9% 1000 ML 1,000 ML IV STA (11:20)
[2019-09-19] MEDS ORDERED: Sodium Chloride 0.9% 1000 ML 1,000 ML ONE (11:44)
[2019-09-19 11:59] LABS: Absolute Neutrophil Ct (ANC) 4.23 (1.4-6.9); BASOPHIL % 0.3 % (0.0-0.4); Basophil (Absolute #) 0.02 (0-0.4); Eosinophil % 0.8 % (0.00-5.0); Eosinophil (Absolute #) 0.06 (0-0.5); Hematocrit 37.1 % (35-47); Hemoglobin 11.6 gm/dl (12.0-16.0); Lymphocyte (Absolute #) 2.58 (1.0-4.6); Mean Cell Volume 85.1 fl (78-100); Mean Corpuscular Hemoglobin 26.6 pg (26-32); Mean Corpuscular Hgb Concent. 31.3 g/dl (32-36); Mean Platelet Volume 9.9 fl (7.5-11.0); Monocyte (Absolute #) 0.49 (0.0-1.3); Monocytes % 6.6 % (0.0-12.0); Neutrophil % 57.3 % (36.0-66.0); Platelet Count 302 K/mm3 (150-450); Red Blood Count 4.36 M/mm3 (4.1-5.4); Red Cell Distribution Width 15.3 % (11.5-14.0); White Blood Count 7.4 K/mm3 (4.0-10.5)
--- NOTE | 2019-09-19 12:05 | XRAY ---
Indication: Dizziness and syncope. Multiple contiguous axial images obtained through the head without contrast. Comparison: August 29, 2018. Normal appearing brain parenchyma, ventricles, and bony calvarium. Visualized paranasal sinuses and mastoid air cells are clear. Impression: Continued normal CT head without contrast exam.
[2019-09-19 12:11] LABS: ALBUMIN 4.1 g/dL (3.5-5.0); ALKALINE PHOSPHATASE 61 U/L (38-126); ANION GAP 13.6 MEQ/L (5-15); BLOOD UREA NITROGEN 13 mg/dL (7-17); CHLORIDE 111 mmol/L (98-107); Calcium 9.5 mg/dL (8.4-10.2); Carbon Dioxide 20 mmol/L (22-30); Creatinine 1 0.59 mg/dL (0.52-1.04); Glucose 92 mg/dL (74-106); SGOT/AST 19 U/L (14-36); SGPT/ALT 17 U/L (0-35); SODIUM 142 mmol/L (137-145); Total Protein 7.7 g/dL (6.3-8.2)
[2019-09-19 12:18] LABS: ETHYL ALCOHOL < 10 mg/dL (0-10)
[2019-09-19 12:37] VITALS: BP 110/72; PULSE 68
[2019-09-19 12:37] LABS: INFLUENZA A NEGATIVE (NEGATIVE); INFLUENZA B NEGATIVE (NEGATIVE); RESPIRATORY SYNCTIAL VIRUS NEGATIVE (Negative)
[2019-09-19 12:55] VITALS: O2SAT 97
== END 2019-09-19 13:07 | disposition home or self-care (01) ==
LOC: ED 10:42
DX: R42 Dizziness and giddiness (principal); R51 Headache; R50.9 Fever, unspecified; Z87.442 Personal history of urinary calculi; Z86.73 Personal history of transient ischemic attack (TIA), and cerebral infarction without residual deficits; Z72.0 Tobacco use
CPT/HCPCS: 36000; 36415; 70450; 80053; 80307; 85025; 87631; 93005; 94760; 96360; 99284; U0002; G0480

== ENCOUNTER 2019-09-27 12:54 | Emergency (ER) | payer BC ==
[2019-09-27] MEDS ORDERED: Ativan 2 MG/1 ML VIAL IV ONE (12:58)
[2019-09-27] MEDS ORDERED: Sodium Chloride 0.9% 1000 ML 1,000 ML IV STA (12:58)
[2019-09-27 13:09] LABS: A-aADO2 6; ABG HEMOGLOBIN 11.9; ABG POTASSIUM 3.5 (3.5-5.1); ARTERIAL BLD GAS O2 SATURATION 99.3 % (95-100); ARTERIAL BLOOD GAS BASE EXCESS -1.9 (-2.0-2.0); ARTERIAL BLOOD GAS FIO2 21 %; ARTERIAL BLOOD GAS PCO2 21 mmHg (35-45); ARTERIAL BLOOD GAS PO2 117 mmHg (75-100); CARBOXYHEMOGLOBIN 2.7 % THgb (0.0-6.9); HCO3- 18.4 (22-28); Lactic Acid 2.6 (0.4-2.0); Methhemoglobin 0.7 % (1.4-1.5); paO2 pAO1 0.95
[2019-09-27 13:10] LABS: ARTERIAL BLOOD GAS pH 7.55 (7.35-7.45)
[2019-09-27 13:11] LABS: ABG SITE LEFT BRACHIAL
[2019-09-27] MEDS ORDERED: Sodium Chloride 0.9% 1000 ML 1,000 ML ONE (13:21)
[2019-09-27] MEDS ORDERED: Ativan 2 MG/1 ML VIAL ONE (13:21)
--- NOTE | 2019-09-27 13:30 | XRAY ---
Indication: Syncope. Comparison: July 30, 2019. Portable chest demonstrates normal heart, lungs, and bony thorax.
[2019-09-27 13:31] LABS: Absolute Neutrophil Ct (ANC) 5.42 (1.4-6.9); BASOPHIL % 0.1 % (0.0-0.4); Basophil (Absolute #) 0.01 (0-0.4); Eosinophil % 0.8 % (0.00-5.0); Eosinophil (Absolute #) 0.07 (0-0.5); Hematocrit 37.3 % (35-47); Hemoglobin 11.8 gm/dl (12.0-16.0); Lymphocyte (Absolute #) 2.84 (1.0-4.6); Lymphocytes % 32.5 % (24.0-44.0); Mean Corpuscular Hemoglobin 26.6 pg (26-32); Mean Corpuscular Hgb Concent. 31.6 g/dl (32-36); Mean Platelet Volume 10.1 fl (7.5-11.0); Monocyte (Absolute #) 0.41 (0.0-1.3); Monocytes % 4.7 % (0.0-12.0); Neutrophil % 61.9 % (36.0-66.0); Platelet Count 356 K/mm3 (150-450); Red Blood Count 4.44 M/mm3 (4.1-5.4); Red Cell Distribution Width 15.4 % (11.5-14.0); White Blood Count 8.8 K/mm3 (4.0-10.5)
[2019-09-27 13:50] LABS: ALBUMIN 4.4 g/dL (3.5-5.0); ALKALINE PHOSPHATASE 81 U/L (38-126); ANION GAP 18.6 MEQ/L (5-15); BLOOD UREA NITROGEN 13 mg/dL (7-17); CHLORIDE 108 mmol/L (98-107); Calcium 9.6 mg/dL (8.4-10.2); Carbon Dioxide 20 mmol/L (22-30); Creatinine 1 0.63 mg/dL (0.52-1.04); Glucose 115 mg/dL (74-106); Potassium 3.4 mmol/L (3.5-5.1); SGOT/AST 33 U/L (14-36); SGPT/ALT 39 U/L (0-35); SODIUM 143 mmol/L (137-145); Total Protein 8.1 g/dL (6.3-8.2)
[2019-09-27 15:03] VITALS: BP 116/63; PULSE 91; O2SAT 97
[2019-09-27 15:04] LABS: Appearance SLIGHTLY CLOUDY (CLEAR); Bacteria MODERATE /HPF (NEGATIVE); Bilirubin NEGATIVE (NEGATIVE); Blood NEGATIVE Ery/ul (0-5); Epithelial Cells RARE /HPF (FEW); Glucose NEGATIVE (NEGATIVE); Ketones NEGATIVE (NEGATIVE); Leukocyte Esterase NEGATIVE (NEGATIVE); Mucus SLIGHT /HPF (NEGATIVE); Nitrite NEGATIVE (NEGATIVE); Protein,Urine Dip NEGATIVE (Negative); RBC 0-2 /HPF (0-2); Specific Gravity 1.012 (1.005-1.025); Urobilinogen NEGATIVE mg/dL (0-1)
[2019-09-27 15:20] LABS: Amphetamine,Urine NEGATIVE (NEGATIVE); Barbiturate,Urine NEGATIVE (NEGATIVE); Benzodiazepine,Urine NEGATIVE (NEGATIVE); Cocaine,Urine NEGATIVE (NEGATIVE); Methadone,Urine NEGATIVE (NEGATIVE); Opiate,Urine NEGATIVE (NEGATIVE); PCP,Urine NEGATIVE (NEGATIVE); THC,Urine NEGATIVE (NEGATIVE)
--- NOTE | 2019-09-27 15:25 | ERPHSYRPT ---
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 She has been working at a [place] [facility] [place] where COVID-19 is affecting the majority of the population. She has not had a day off for weeks. She had an episode in the lobby where she apparently had a syncopal episode had some shaking. She was seen 2 days ago in the ER for a similar episode work-up was negative Witnessed: bystander Prior Episodes: multiple episodes today Timing/Duration: today Precipitating Factors: none Context: standing Loss of Consciousness: brief (seconds) Charcter of event(s): collapsed, became unresponsive Allergies/Adverse Reactions: hydromorphone HCl [From Dilaudid] Allergy (Severe, Verified 07/30/19 10:45) Anaphylactic Reaction azithromycin [From Zithromax] Allergy (Intermediate, Verified 07/30/19 10:46) Hives erythromycin base [Erythromycin Base] Allergy (Mild, Verified 07/30/19 10:46) Tightness of Throat morphine Adverse Reaction (Verified 07/30/19 10:45) Hives Home Medications: Erenumab-Aooe [Aimovig Autoinjector] 1 ea SQ UD 07/30/19 [History] Hx Tetanus, Diphtheria Vaccination/Date Given: No Hx Influenza Vaccination/Date Given: No Hx Pneumococcal Vaccination/Date Given: No Travel Risk - International Travel Have you traveled outside of the country in past 3 weeks: No Have you or anyone close to you been diagnosed with or: Yes Do your reside in a community with a known COVID-19 case?: Yes If Yes where:: [place] - Coronavirus Screening Has patient experienced Coronavirus symptoms: No - Past Medical History Pertinent Past Medical History: Yes Neurological History: No Pertinent History ENT History: No Pertinent History Cardiac History: Arrhythmia, Other Respiratory History: No Pertinent History Endocrine Medical History: No Pertinent History Musculoskeletal History: No Pertinent History GI Medical History: No Pertinent History History: No Pertinent History Psycho-Social History: No Pertinent History Female Reproductive Disorders: No Pertinent History Other Medical History: kidney stones; a-fib - Past Surgical History Past Surgical History: Yes Neuro Surgical History: No Pertinent History Cardiac: No Pertinent History Respiratory: No Pertinent History Gastrointestinal: Appendectomy Genitourinary: No Pertinent History Musculoskeletal: No Pertinent History Female Surgical History: Dilation & Curettage, Section, Tubal Ligation Other Surgical History: D&C, states ultrasound and stress showed irreg. heartbeat and chest pain in past few months, cardiology nurse practitioner unable to find irregular heartbeat. tubal 12/03/15 - Social History Smoking Status: Current every day smoker How long have you smoked: 12 Exposure to second hand smoke: Yes Drug Use: none Patient Lives Alone: No - Female History Hx Now: No - Review of Systems Constitutional: No Fever, No Chills Eyes: No Symptoms Ears, Nose, & Throat: No Symptoms Respiratory: No Cough, No Dyspnea Cardiac: No Chest Pain, No Edema, No Syncope Abdominal/Gastrointestinal: No Abdominal Pain, No Nausea, No Vomiting, No Diarrhea Genitourinary Symptoms: No Dysuria Musculoskeletal: No Back Pain, No Neck Pain Skin: No Rash Neurological: Tremors, No Dizziness, No Focal Weakness, No Sensory Changes Psychological: No Symptoms Endocrine: No Symptoms All Other Systems: Reviewed and Negative Physical Exam - Nursing Vital Signs Nursing Vital Signs: Initial Vital Signs Temperature 97.9 F 09/27/19 12:55 Pulse Rate 127 H 09/27/19 12:55 Respiratory Rate 26 H 09/27/19 12:55 Blood Pressure 112/68 09/27/19 12:55 O2 Sat by Pulse Oximetry 98 09/27/19 12:55 Pain Scale Pain Intensity 4 - Branden Coma Scale Best Eye Response (Branden): (4) open spontaneously Best Verbal Response (Branden): (5) oriented Best Motor Response ([place]): (6) obeys commands Branden Total: 15 - Physical Exam General Appearance: moderate distress, alert Eye Exam: bilateral eye: PERRL, EOMI Ears, Nose, Throat Exam: normal ENT inspection, pharynx normal, moist mucous membranes Neck Exam: normal inspection, non-tender, supple, full range of motion Respiratory: normal breath sounds, lungs clear, No chest tenderness, No respiratory distress Cardiovascular: regular rate/rhythm, capillary refill <2 sec, No murmur, No pulse deficit Gastrointestinal: soft, No tenderness, No distention, No mass Back Exam: normal inspection, normal range of motion, No CVA tenderness, No vertebral tenderness Extremity Exam: normal inspection, normal range of motion, pelvis stable, No tenderness Mental Status: alert, oriented x 3, 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 Exam: normal speech, PERRL, No facial droop Coordination/Gait: normal finger to nose Motor/Sensory: no motor deficit, no sensory deficit, no pronator drift Skin Exam: normal color, warm, dry, No rash SpO2 Interpretation: normal SpO2: 97 O2 Delivery: Room Air - Course Nursing assessment & vital signs reviewed: Yes EKG Interpreted by Me: RATE ([id number]), NORMAL AXIS, NORMAL INTERVALS, Right Bundle Branch Block Rhythm Strip: Sinus Tachycardia Ordered Tests: Active Orders 24 hr Category Date Time Status 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 Care 09/27/19 12:59 Active EKG-ER Only STAT Care 09/27/19 12:58 Active Seizure Precautions -SCCHED STAT Care 09/27/19 12:58 Active CHEST 1 VIEW (PORTABLE) Stat Exams 09/27/19 12:59 Completed ABG [ARTERIAL BLOOD GASES] Stat Lab 09/27/19 12:58 Completed BLOOD CULTURE Stat Lab 09/27/19 13:30 Received CBC W DIFF Stat Lab 09/27/19 13:15 Completed CMP Stat Lab 09/27/19 13:15 Completed CULTURE,URINE Stat Lab 09/27/19 14:45 Received D-DIMER QUANTITATIVE Stat Lab 09/27/19 13:15 Completed HCG QUALITATIVE,SERUM Stat Lab 09/27/19 13:15 Completed Lactic Acid Stat Lab 09/27/19 12:58 Completed Lactic Acid Stat Lab 09/27/19 15:11 Received UA W/RFX UR CULTURE Stat Lab 09/27/19 14:45 Completed Urine Triage Profile Stat Lab 09/27/19 14:45 Ordered Medication Summary Discontinued Medications Generic Name Dose Route Start Last Admin Trade Name Freq PRN Reason Stop Dose Admin Sodium Chloride 1,000 mls @ 999 mls/hr 05/01/20 12:58 09/27/19 14:36 Sodium Chloride 0.9% 1000 Ml IV 09/27/19 13:58 Infused .Q1H1M STA Infusion Sodium Chloride Confirm 09/27/19 13:21 Sodium Chloride 0.9% 1000 Ml Administered 09/27/19 13:22 Dose 1,000 mls @ ud .ROUTE .STK-MED ONE Lorazepam 1 mg 09/27/19 12:58 09/27/19 13:31 Ativan 2 Mg/1 Ml Vial IV 09/27/19 12:59 Not Given STAT ONE Lorazepam Confirm 09/27/19 13:21 Ativan 2 Mg/1 Ml Vial Administered 09/27/19 13:22 Dose 2 mg .ROUTE .STK-MED ONE Lab/Rad Data: Laboratory Result Diagrams 09/27/19 13:15 09/27/19 13:15 Laboratory Results 09/27/19 09/27/19 09/27/19 Range/Units 14:45 13:15 13:15 WBC (4.0-10.5) K/mm3 RBC (4.1-5.4) M/mm3 Hgb (12.0-16.0) gm/dl Hct (35-47) % MCV (78-100) fl MCH (26-32) pg MCHC (32-36) g/dl RDW (11.5-14.0) % Plt Count (150-450) K/mm3 MPV (7.5-11.0) fl Gran % (36.0-66.0) % Eos # (Auto) (0-0.5) Absolute Lymphs (auto) (1.0-4.6) Absolute Monos (auto) (0.0-1.3) Lymphocytes % (24.0-44.0) % Monocytes % (0.0-12.0) % Eosinophils % (0.00-5.0) % Basophils % (0.0-0.4) % Absolute Granulocytes (1.4-6.9) Basophils # (0-0.4) D-Dimer 376 (215-500) ng/mL Puncture Site pCO2 (35-45) mmHg pO2 (75-100) mmHg Base Excess (-2.0-2.0) O2 Saturation (94-100) g/dF ABG pH (7.35-7.45) ABG HCO3 (22-28) ABG O2 Sat (Measured) (95-100) % Deepak Test A-a Gradient a/A Ratio Hemoglobin Carboxyhemoglobin (0.0-6.9) % THgb Methemoglobin (1.4-1.5) % Potassium (3.5-5.1) Temperature C POC O2 Flow Rate % Sodium (137-145) mmol/L Chloride (98-107) mmol/L Carbon Dioxide (22-30) mmol/L Anion Gap (5-15) MEQ/L BUN (7-17) mg/dL Creatinine (0.52-1.04) mg/dL Estimated GFR ML/MIN Glucose (74-106) mg/dL Lactic Acid (0.4-2.0) Calcium (8.4-10.2) mg/dL Total Bilirubin (0.2-1.3) mg/dL AST (14-36) U/L ALT (0-35) U/L Alkaline Phosphatase (38-126) U/L Serum Total Protein (6.3-8.2) g/dL Albumin (3.5-5.0) g/dL Serum , Qual NEGATIVE (Negative) Urine Color YELLOW (YELLOW) Urine Appearance SLIGHTLY CLOUDY (CLEAR) Urine pH 7.0 (5-6) Ur Specific [place] 1.012 (1.005-1.025) Urine Protein NEGATIVE (Negative) Urine Ketones NEGATIVE (NEGATIVE) Urine Blood NEGATIVE (0-5) Thang/ul Urine Nitrite NEGATIVE (NEGATIVE) Urine Bilirubin NEGATIVE (NEGATIVE) Urine Urobilinogen NEGATIVE (0-1) mg/dL Ur Leukocyte Esterase NEGATIVE (NEGATIVE) Urine WBC (Auto) 6-10 (0-5) /HPF Urine RBC (Auto) 0-2 (0-2) /HPF U Epithel Cells (Auto) RARE (FEW) /HPF Urine Bacteria (Auto) MODERATE (NEGATIVE) /HPF Urine Mucus (Auto) SLIGHT (NEGATIVE) /HPF Urine Culture Reflexed YES (NO) Urine Glucose NEGATIVE (NEGATIVE) mg/dL 09/27/19 09/27/19 09/27/19 Range/Units 13:15 13:15 12:58 WBC 8.8 (4.0-10.5) K/mm3 RBC 4.44 (4.1-5.4) M/mm3 Hgb 11.8 L (12.0-16.0) gm/dl Hct 37.3 (35-47) % MCV 84.0 (78-100) fl MCH 26.6 (26-32) pg MCHC 31.6 L (32-36) g/dl RDW 15.4 H (11.5-14.0) % Plt Count 356 (150-450) K/mm3 MPV 10.1 (7.5-11.0) fl Gran % 61.9 (36.0-66.0) % Eos # (Auto) 0.07 (0-0.5) Absolute Lymphs (auto) 2.84 (1.0-4.6) Absolute Monos (auto) 0.41 (0.0-1.3) Lymphocytes % 32.5 (24.0-44.0) % Monocytes % 4.7 (0.0-12.0) % Eosinophils % 0.8 (0.00-5.0) % Basophils % 0.1 (0.0-0.4) % Absolute Granulocytes 5.42 (1.4-6.9) Basophils # 0.01 (0-0.4) D-Dimer (215-500) ng/mL Puncture Site LEFT BRACHIAL pCO2 21 L (35-45) mmHg pO2 117 H (75-100) mmHg Base Excess -1.9 (-2.0-2.0) O2 Saturation 96.0 (94-100) g/dF ABG pH 7.55 H* (7.35-7.45) ABG HCO3 18.4 L (22-28) ABG O2 Sat (Measured) 99.3 (95-100) % Deepak Test NOT APPLICABLE A-a Gradient 6 a/A Ratio 0.95 Hemoglobin 11.9 Carboxyhemoglobin 2.7 (0.0-6.9) % THgb Methemoglobin 0.7 L (1.4-1.5) % Potassium 3.4 L 3.5 (3.5-5.1) Temperature 37.0 C POC O2 Flow Rate 21 % Sodium 143 (137-145) mmol/L Chloride 108 H (98-107) mmol/L Carbon Dioxide 20 L (22-30) mmol/L Anion Gap 18.6 H (5-15) MEQ/L BUN 13 (7-17) mg/dL Creatinine 0.63 (0.52-1.04) mg/dL Estimated GFR > 60.0 ML/MIN Glucose 115 H (74-106) mg/dL Lactic Acid 2.6 H (0.4-2.0) Calcium 9.6 (8.4-10.2) mg/dL Total Bilirubin 0.50 (0.2-1.3) mg/dL AST 33 (14-36) U/L ALT 39 H (0-35) U/L Alkaline Phosphatase 81 (38-126) U/L Serum Total Protein 8.1 (6.3-8.2) g/dL Albumin 4.4 (3.5-5.0) g/dL Serum , Qual (Negative) Urine Color (YELLOW) Urine Appearance (CLEAR) Urine pH (5-6) Ur Specific [place] (1.005-1.025) Urine Protein (Negative) Urine Ketones (NEGATIVE) Urine Blood (0-5) Thang/ul Urine Nitrite (NEGATIVE) Urine Bilirubin (NEGATIVE) Urine Urobilinogen (0-1) mg/dL Ur Leukocyte Esterase (NEGATIVE) Urine WBC (Auto) (0-5) /HPF Urine RBC (Auto) (0-2) /HPF U Epithel Cells (Auto) (FEW) /HPF Urine Bacteria (Auto) (NEGATIVE) /HPF Urine Mucus (Auto) (NEGATIVE) /HPF Urine Culture Reflexed (NO) Urine Glucose (NEGATIVE) mg/dL - Progress Progress: improved - Departure Departure Disposition: Home Clinical Impression: Hyperventilation Condition: Stable Critical Care Time: No Referrals: ERNESTO CRUMP [Primary Care Provider] - Instructions: Syncope (Fainting) (DC), Hyperventilation
== END 2019-09-27 15:47 | disposition home or self-care (01) ==
LOC: ED 12:54
DX: R06.4 Hyperventilation (principal); G40.909 Epilepsy, unspecified, not intractable, without status epilepticus; R55 Syncope and collapse; Z86.79 Personal history of other diseases of the circulatory system; Z87.442 Personal history of urinary calculi; Z72.0 Tobacco use
CPT/HCPCS: 36000; 36415; 36600; 71045; 80053; 80307; 81001; 81025; 82375; 82803; 83605; 84146; 85025; 85379; 87040; 87086; 93005; 93041; 96360; 96374; 99284; U0002; J2060

== ENCOUNTER 2019-10-25 13:44 | Emergency (ER) | payer BC ==
[2019-10-25 14:18] LABS: Absolute Neutrophil Ct (ANC) 4.56 (1.4-6.9); BASOPHIL % 0.3 % (0.0-0.4); Basophil (Absolute #) 0.02 (0-0.4); Eosinophil % 0.9 % (0.00-5.0); Eosinophil (Absolute #) 0.07 (0-0.5); Hematocrit 39.4 % (35-47); Hemoglobin 12.4 gm/dl (12.0-16.0); Lymphocyte (Absolute #) 2.61 (1.0-4.6); Lymphocytes % 34.4 % (24.0-44.0); Mean Cell Volume 84.5 fl (78-100); Mean Corpuscular Hemoglobin 26.6 pg (26-32); Mean Corpuscular Hgb Concent. 31.5 g/dl (32-36); Monocyte (Absolute #) 0.32 (0.0-1.3); Monocytes % 4.2 % (0.0-12.0); Neutrophil % 60.2 % (36.0-66.0); Platelet Count 309 K/mm3 (150-450); Red Blood Count 4.66 M/mm3 (4.1-5.4); Red Cell Distribution Width 15.5 % (11.5-14.0); White Blood Count 7.6 K/mm3 (4.0-10.5)
--- NOTE | 2019-10-25 14:21 | ERPHSYRPT ---
- History of Present Illness Time Seen by Provider: 10/25/19 13:46 Source: patient Exam Limitations: no limitations Patient Subjective Stated Complaint: SOB Triage Nursing Assessment: Patient brought back to ED via w/c and transferred to bed per self. Patient A+O X3. Patient's skin pink, warm and dry. Patient complains of increased SOB over the past 3 days with fever. Patient states her temp is running between 101-102.0. Patient states she has been having body aches and non productive cough. Lungs clear a/p panchito. Physician History: 34 yo wf w dyspnea x 2 days/nonproductive cough/nasal congestion/N/Diarrhea/ fever. Pt works in [place] and has known COVID exposure at work([place]) and at home( ).She denies chest pain/ST/otalgia. Timing/Duration: day(s) (2-3) Activities at Onset: none Severity of Dyspnea-Max: mild Severity of Dyspnea-Current: mild Possible Cause: no prior episodes Modifying Factors: Improves With: nothing Associated Symptoms: cough Allergies/Adverse Reactions: hydromorphone HCl [From Dilaudid] Allergy (Severe, Verified 10/25/19 13:48) Anaphylactic Reaction azithromycin [From Zithromax] Allergy (Intermediate, Verified 10/25/19 13:48) Hives erythromycin base [Erythromycin Base] Allergy (Mild, Verified 10/25/19 13:48) Tightness of Throat morphine Adverse Reaction (Verified 10/25/19 13:48) Hives Hx Tetanus, Diphtheria Vaccination/Date Given: No Hx Influenza Vaccination/Date Given: No Hx Pneumococcal Vaccination/Date Given: No Immunizations Up to Date: Yes Travel Risk - International Travel Have you traveled outside of the country in past 3 weeks: Yes If Yes, where;: was positive Have you or anyone close to you been diagnosed with or: Yes Do your reside in a community with a known COVID-19 case?: Yes If Yes where:: [facility] - Coronavirus Screening Has patient experienced Coronavirus symptoms: Yes Symptoms experienced: fever(equal or > 100.4 F), respiratory symptoms ( i.e.Cought,shortness of breath), weakness Date of fever onset:: 10/22/19 Date of respiratory symptoms onset:: 10/22/19 - Review of Systems Constitutional: Fever, Chills, Fatigue, Weakness Eyes: No Symptoms Ears, Nose, & Throat: No Symptoms Respiratory: Cough, Dyspnea Cardiac: No Symptoms Abdominal/Gastrointestinal: No Symptoms Genitourinary Symptoms: No Symptoms Musculoskeletal: No Symptoms Skin: No Symptoms Neurological: No Symptoms Psychological: No Symptoms Endocrine: No Symptoms Hematologic/Lymphatic: No Symptoms Immunological/Allergic: No Symptoms - Past Medical History Pertinent Past Medical History: Yes Neurological History: No Pertinent History ENT History: No Pertinent History Cardiac History: Arrhythmia, Other Respiratory History: No Pertinent History Endocrine Medical History: No Pertinent History Musculoskeletal History: No Pertinent History GI Medical History: No Pertinent History History: No Pertinent History Psycho-Social History: No Pertinent History Female Reproductive Disorders: No Pertinent History Other Medical History: kidney stones; a-fib - Past Surgical History Past Surgical History: Yes Neuro Surgical History: No Pertinent History Cardiac: No Pertinent History Respiratory: No Pertinent History Gastrointestinal: Appendectomy Genitourinary: No Pertinent History Musculoskeletal: No Pertinent History Female Surgical History: Dilation & Curettage, Section, Tubal Ligation Other Surgical History: D&C, states ultrasound and stress showed irreg. 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 tubal 12/03/15 - Social History Smoking Status: Current every day smoker How long have you smoked: 12 Exposure to second hand smoke: Yes Drug Use: none Patient Lives Alone: No Significant Family History: no pertinent family hx - Female History Hx Last Menstrual Period: 3 weeks ago Hx Now: No - Nursing Vital Signs Nursing Vital Signs: Initial Vital Signs Temperature 99.0 F 10/25/19 13:52 Pulse Rate 88 10/25/19 13:52 Respiratory Rate 18 10/25/19 13:52 Blood Pressure 142/81 10/25/19 13:52 O2 Sat by Pulse Oximetry 99 10/25/19 13:52 Pain Scale Pain Intensity 0 - Physical Exam General Appearance: no apparent distress, anxiety Eye Exam: PERRL/EOMI, eyes nml inspection Ears, Nose, Throat Exam: hearing grossly normal, normal ENT inspection, normal pharynx Neck Exam: normal inspection, non-tender Respiratory Exam: normal breath sounds, lungs clear, airway intact Cardiovascular/Chest Exam: normal heart sounds Abdominal/Gastrointestinal Exam: soft, normal bowel sounds, No tenderness Extremity Exam: non-tender, normal range of motion, normal inspection, normal capillary refill, no calf tenderness Neurologic Exam: alert, oriented x 3, cooperative, 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, normal mood/affect, nml cerebellar function, nml station & gait Skin Exam: normal color, warm, dry Lymphatic Exam: adenopathy SpO2 Interpretation: normal SpO2: 99 O2 Delivery: Room Air - Course Nursing assessment & vital signs reviewed: Yes EKG Interpreted by Me: RATE, Sinus Rhythm, NORMAL INTERVALS, Right Bundle Branch Block, NORMAL ST-T, Other (Incomplete RBBB) - Radiology Exams Chest X-ray Interpretation: No Pneumonia, No Pneumothorax, No Infiltrates, Nml Mediastinum Ordered Tests: Active Orders 24 hr Category Date Time Status [place] STAT Care 10/25/19 14:28 Active EKG-ER Only STAT Care 10/25/19 13:56 Active IV Insertion STAT Care 10/25/19 14:27 Active Isolation, Initiate & Maintain Q12H Care 10/25/19 14:01 Active Pulse Oximetry (ED) STAT Care 10/25/19 14:27 Active CHEST 1 VIEW (PORTABLE) Stat Exams 10/25/19 13:55 Completed CBC W DIFF Stat Lab 10/25/19 14:05 Completed CMP Stat Lab 10/25/19 14:05 Completed CULTURE,URINE Stat Lab 10/25/19 15:00 Received D-DIMER QUANTITATIVE Stat Lab 10/25/19 14:05 Completed Lactic Acid Stat Lab 10/25/19 14:06 Completed TROPONIN Q3H Lab 10/25/19 14:05 Completed TROPONIN Q3H Lab 10/25/19 17:00 Ordered TROPONIN Q3H Lab 10/25/19 20:00 Ordered TROPONIN Q3H Lab 10/25/19 23:00 Ordered TROPONIN Q3H Lab 10/26/19 02:00 Ordered UA W/RFX UR CULTURE Stat Lab 10/25/19 15:00 Completed Lab/Rad Data: Laboratory Result Diagrams 10/25/19 14:05 10/25/19 14:05 Laboratory Results 10/25/19 10/25/19 10/25/19 Range/Units 15:00 14:06 14:05 WBC (4.0-10.5) K/mm3 RBC (4.1-5.4) M/mm3 Hgb (12.0-16.0) gm/dl Hct (35-47) % MCV (78-100) fl MCH (26-32) pg MCHC (32-36) g/dl RDW (11.5-14.0) % Plt Count (150-450) K/mm3 MPV (7.5-11.0) fl Gran % (36.0-66.0) % Eos # (Auto) (0-0.5) Absolute Lymphs (auto) (1.0-4.6) Absolute Monos (auto) (0.0-1.3) Lymphocytes % (24.0-44.0) % Monocytes % (0.0-12.0) % Eosinophils % (0.00-5.0) % Basophils % (0.0-0.4) % Absolute Granulocytes (1.4-6.9) Basophils # (0-0.4) D-Dimer (215-500) ng/mL Sodium (137-145) mmol/L Potassium (3.5-5.1) mmol/L Chloride (98-107) mmol/L Carbon Dioxide (22-30) mmol/L Anion Gap (5-15) MEQ/L BUN (7-17) mg/dL Creatinine (0.52-1.04) mg/dL Estimated GFR ML/MIN Glucose (74-106) mg/dL Lactic Acid 2.6 H (0.4-2.0) Calcium (8.4-10.2) mg/dL Total Bilirubin (0.2-1.3) mg/dL AST (14-36) U/L ALT (0-35) U/L Alkaline Phosphatase (38-126) U/L Troponin I < 0.012 (0.000-0.034) ng/mL Serum Total Protein (6.3-8.2) g/dL Albumin (3.5-5.0) g/dL Urine Color YELLOW (YELLOW) Urine Appearance CLOUDY (CLEAR) Urine pH 5.0 (5-6) Ur Specific Sylvia 1.019 (1.005-1.025) Urine Protein NEGATIVE (Negative) Urine Ketones NEGATIVE (NEGATIVE) Urine Blood NEGATIVE (0-5) Thang/ul Urine Nitrite NEGATIVE (NEGATIVE) Urine Bilirubin NEGATIVE (NEGATIVE) Urine Urobilinogen NEGATIVE (0-1) mg/dL Ur Leukocyte Esterase NEGATIVE (NEGATIVE) Urine WBC (Auto) 11-15 (0-5) /HPF Urine RBC (Auto) 3-5 (0-2) /HPF U Epithel Cells (Auto) MODERATE (FEW) /HPF Urine Bacteria (Auto) FEW (NEGATIVE) /HPF Amorphous Crystals FEW (NEGATIVE) /HPF Urine Mucus (Auto) SLIGHT (NEGATIVE) /HPF Urine Culture Reflexed YES (NO) Urine Glucose NEGATIVE (NEGATIVE) mg/dL Influenza Type A Ag (NEGATIVE) Influenza Type B Ag (NEGATIVE) RSV (PCR) (Negative) Group A Strep Antibody (NEGATIVE) 10/25/19 10/25/19 10/25/19 Range/Units 14:05 14:05 14:05 WBC 7.6 (4.0-10.5) K/mm3 RBC 4.66 (4.1-5.4) M/mm3 Hgb 12.4 (12.0-16.0) gm/dl Hct 39.4 (35-47) % MCV 84.5 (78-100) fl MCH 26.6 (26-32) pg MCHC 31.5 L (32-36) g/dl RDW 15.5 H (11.5-14.0) % Plt Count 309 (150-450) K/mm3 MPV 10.0 (7.5-11.0) fl Gran % 60.2 (36.0-66.0) % Eos # (Auto) 0.07 (0-0.5) Absolute Lymphs (auto) 2.61 (1.0-4.6) Absolute Monos (auto) 0.32 (0.0-1.3) Lymphocytes % 34.4 (24.0-44.0) % Monocytes % 4.2 (0.0-12.0) % Eosinophils % 0.9 (0.00-5.0) % Basophils % 0.3 (0.0-0.4) % Absolute Granulocytes 4.56 (1.4-6.9) Basophils # 0.02 (0-0.4) D-Dimer 305 (215-500) ng/mL Sodium 139 (137-145) mmol/L Potassium 3.6 (3.5-5.1) mmol/L Chloride 108 H (98-107) mmol/L Carbon Dioxide 22 (22-30) mmol/L Anion Gap 12.9 (5-15) MEQ/L BUN 9 (7-17) mg/dL Creatinine 0.58 (0.52-1.04) mg/dL Estimated GFR > 60.0 ML/MIN Glucose 106 (74-106) mg/dL Lactic Acid (0.4-2.0) Calcium 9.5 (8.4-10.2) mg/dL Total Bilirubin 0.40 (0.2-1.3) mg/dL AST 20 (14-36) U/L ALT 16 (0-35) U/L Alkaline Phosphatase 67 (38-126) U/L Troponin I (0.000-0.034) ng/mL Serum Total Protein 8.3 H (6.3-8.2) g/dL Albumin 4.4 (3.5-5.0) g/dL Urine Color (YELLOW) Urine Appearance (CLEAR) Urine pH (5-6) Ur Specific Sylvia (1.005-1.025) Urine Protein (Negative) Urine Ketones (NEGATIVE) Urine Blood (0-5) Thang/ul Urine Nitrite (NEGATIVE) Urine Bilirubin (NEGATIVE) Urine Urobilinogen (0-1) mg/dL Ur Leukocyte Esterase (NEGATIVE) Urine WBC (Auto) (0-5) /HPF Urine RBC (Auto) (0-2) /HPF U Epithel Cells (Auto) (FEW) /HPF Urine Bacteria (Auto) (NEGATIVE) /HPF Amorphous Crystals (NEGATIVE) /HPF Urine Mucus (Auto) (NEGATIVE) /HPF Urine Culture Reflexed (NO) Urine Glucose (NEGATIVE) mg/dL Influenza Type A Ag (NEGATIVE) Influenza Type B Ag (NEGATIVE) RSV (PCR) (Negative) Group A Strep Antibody (NEGATIVE) 10/25/19 Range/Units 13:50 WBC (4.0-10.5) K/mm3 RBC (4.1-5.4) M/mm3 Hgb (12.0-16.0) gm/dl Hct (35-47) % MCV (78-100) fl MCH (26-32) pg MCHC (32-36) g/dl RDW (11.5-14.0) % Plt Count (150-450) K/mm3 MPV (7.5-11.0) fl Gran % (36.0-66.0) % Eos # (Auto) (0-0.5) Absolute Lymphs (auto) (1.0-4.6) Absolute Monos (auto) (0.0-1.3) Lymphocytes % (24.0-44.0) % Monocytes % (0.0-12.0) % Eosinophils % (0.00-5.0) % Basophils % (0.0-0.4) % Absolute Granulocytes (1.4-6.9) Basophils # (0-0.4) D-Dimer (215-500) ng/mL Sodium (137-145) mmol/L Potassium (3.5-5.1) mmol/L Chloride (98-107) mmol/L Carbon Dioxide (22-30) mmol/L Anion Gap (5-15) MEQ/L BUN (7-17) mg/dL Creatinine (0.52-1.04) mg/dL Estimated GFR ML/MIN Glucose (74-106) mg/dL Lactic Acid (0.4-2.0) Calcium (8.4-10.2) mg/dL Total Bilirubin (0.2-1.3) mg/dL AST (14-36) U/L ALT (0-35) U/L Alkaline Phosphatase (38-126) U/L Troponin I (0.000-0.034) ng/mL Serum Total Protein (6.3-8.2) g/dL Albumin (3.5-5.0) g/dL Urine Color (YELLOW) Urine Appearance (CLEAR) Urine pH (5-6) Ur Specific Sylvia (1.005-1.025) Urine Protein (Negative) Urine Ketones (NEGATIVE) Urine Blood (0-5) Thang/ul Urine Nitrite (NEGATIVE) Urine Bilirubin (NEGATIVE) Urine Urobilinogen (0-1) mg/dL Ur Leukocyte Esterase (NEGATIVE) Urine WBC (Auto) (0-5) /HPF Urine RBC (Auto) (0-2) /HPF U Epithel Cells (Auto) (FEW) /HPF Urine Bacteria (Auto) (NEGATIVE) /HPF Amorphous Crystals (NEGATIVE) /HPF Urine Mucus (Auto) (NEGATIVE) /HPF Urine Culture Reflexed (NO) Urine Glucose (NEGATIVE) mg/dL Influenza Type A Ag NEGATIVE (NEGATIVE) Influenza Type B Ag NEGATIVE (NEGATIVE) RSV (PCR) NEGATIVE (Negative) Group A Strep Antibody NOT DETECTED (NEGATIVE) - Progress Progress: unchanged Air Movement: poor Progress Note: 10/25/19 15:21 Pt w neg CXR/normal cbc-cmp/neg strep-flu/Lactate mildly elevated wo clinical signs of sepsis. Pt w mild UTI but poor specimen. Blood Culture(s) Obtained: No Antibiotics given: No Counseled pt/family regarding: lab results, diagnosis, need for follow-up, rad results - Departure Departure Disposition: Home Clinical Impression: Cough UTI (urinary tract infection) Qualifiers: Urinary tract infection type: acute cystitis Hematuria presence: without hematuria Qualified Code(s): N30.00 - Acute cystitis without hematuria Condition: Stable Critical Care Time: No Referrals: ERNESTO CRUMP [Primary Care Provider] - Instructions: Shortness of Breath (Dyspnea) (DC), Acute Cystitis (DC), Cough, Adult (DC) Additional Instructions: Follow up with yourt family MD early next week Start Bactrim twice a day for 3 days Return to ER for increasing shortness of breath/Temperature greater than 100.5/ Worsening chest pain Prescriptions: Sulfamethoxazole/Trimethoprim [Bactrim Ds Tablet] 1 each PO BID 3 Days #6 tablet
[2019-10-25 14:33] LABS: ALBUMIN 4.4 g/dL (3.5-5.0); ALKALINE PHOSPHATASE 67 U/L (38-126); ANION GAP 12.9 MEQ/L (5-15); BLOOD UREA NITROGEN 9 mg/dL (7-17); CHLORIDE 108 mmol/L (98-107); Calcium 9.5 mg/dL (8.4-10.2); Carbon Dioxide 22 mmol/L (22-30); Creatinine 1 0.58 mg/dL (0.52-1.04); Glucose 106 mg/dL (74-106); Potassium 3.6 mmol/L (3.5-5.1); SGOT/AST 20 U/L (14-36); SGPT/ALT 16 U/L (0-35); SODIUM 139 mmol/L (137-145); Total Protein 8.3 g/dL (6.3-8.2)
[2019-10-25 14:48] LABS: INFLUENZA A NEGATIVE (NEGATIVE); INFLUENZA B NEGATIVE (NEGATIVE); RESPIRATORY SYNCTIAL VIRUS NEGATIVE (Negative)
--- NOTE | 2019-10-25 14:54 | XRAY ---
Indication: Dyspnea. Suspect COVID 19. Comparison: September 27, 2019. Portable chest again demonstrates normal heart, lungs, and bony thorax.
[2019-10-25 15:07] VITALS: BP 115/68; PULSE 80
[2019-10-25 15:15] LABS: Amourphous Crystal FEW /HPF (NEGATIVE); Appearance CLOUDY (CLEAR); Bacteria FEW /HPF (NEGATIVE); Bilirubin NEGATIVE (NEGATIVE); Blood NEGATIVE Ery/ul (0-5); Epithelial Cells MODERATE /HPF (FEW); Glucose NEGATIVE (NEGATIVE); Ketones NEGATIVE (NEGATIVE); Leukocyte Esterase NEGATIVE (NEGATIVE); Mucus SLIGHT /HPF (NEGATIVE); Nitrite NEGATIVE (NEGATIVE); Protein,Urine Dip NEGATIVE (Negative); Specific Gravity 1.019 (1.005-1.025); Urobilinogen NEGATIVE mg/dL (0-1)
[2019-10-25 15:19] VITALS: O2SAT 99
== END 2019-10-25 15:38 | disposition home or self-care (01) ==
LOC: ED 13:44
DX: R05 Cough (principal); N30.00 Acute cystitis without hematuria; R06.02 Shortness of breath; Z20.828 Contact with and (suspected) exposure to other viral communicable diseases; Z87.442 Personal history of urinary calculi; Z86.79 Personal history of other diseases of the circulatory system; Z72.0 Tobacco use; I45.10 Unspecified right bundle-branch block
CPT/HCPCS: 36000; 36415; 71045; 80053; 81001; 83605; 84484; 85025; 85379; 87086; 87631; 87651; 93005; 93041; 94760; 99284

== ENCOUNTER 2019-10-25 23:50 | Emergency (ER) | payer BC ==
[2019-10-26 00:36] LABS: Absolute Neutrophil Ct (ANC) 4.26 (1.4-6.9); BASOPHIL % 0.4 % (0.0-0.4); Basophil (Absolute #) 0.03 (0-0.4); Eosinophil % 1.7 % (0.00-5.0); Eosinophil (Absolute #) 0.14 (0-0.5); Hematocrit 38.6 % (35-47); Hemoglobin 12.3 gm/dl (12.0-16.0); Lymphocyte (Absolute #) 3.37 (1.0-4.6); Lymphocytes % 40.3 % (24.0-44.0); Mean Cell Volume 84.3 fl (78-100); Mean Corpuscular Hemoglobin 26.9 pg (26-32); Mean Corpuscular Hgb Concent. 31.9 g/dl (32-36); Mean Platelet Volume 9.7 fl (7.5-11.0); Monocyte (Absolute #) 0.56 (0.0-1.3); Monocytes % 6.7 % (0.0-12.0); Neutrophil % 50.9 % (36.0-66.0); Platelet Count 315 K/mm3 (150-450); Red Blood Count 4.58 M/mm3 (4.1-5.4); Red Cell Distribution Width 15.5 % (11.5-14.0); White Blood Count 8.4 K/mm3 (4.0-10.5)
[2019-10-26 00:47] LABS: ALBUMIN 4.1 g/dL (3.5-5.0); ALKALINE PHOSPHATASE 68 U/L (38-126); ANION GAP 13.8 MEQ/L (5-15); BLOOD UREA NITROGEN 8 mg/dL (7-17); CHLORIDE 109 mmol/L (98-107); Calcium 9.2 mg/dL (8.4-10.2); Carbon Dioxide 20 mmol/L (22-30); Creatinine 1 0.52 mg/dL (0.52-1.04); Glucose 117 mg/dL (74-106); Potassium 3.5 mmol/L (3.5-5.1); SGOT/AST 20 U/L (14-36); SGPT/ALT 16 U/L (0-35); SODIUM 139 mmol/L (137-145); Total Protein 7.8 g/dL (6.3-8.2)
[2019-10-26 00:48] VITALS: BP 115/76; PULSE 98; O2SAT 100
--- NOTE | 2019-10-26 00:53 | ERPHSYRPT ---
- History of Present Illness Time Seen by Provider: 10/26/19 00:05 Source: patient Exam Limitations: no limitations Patient Subjective Stated Complaint: pt states she was seen in the er approx 6 hours earlier for same complaint. states she thinks she has covid but has not gotten test results back yet from swab done 2 days ago Triage Nursing Assessment: pt alert and oriented, answers questions approp. pt arrive per ambulance. transfers to stretcher per self. respirations nonlabored with lungs cta. skin pink warm and dry. Physician History: 34 yo wf seen earlier in shift w dyspnea/fever/N/V/Diarrhea present per ambulance for same complaint. Pt states that she became more dyspnic w worsening cough. She denies chest pain. Timing/Duration: day(s) (3) Activities at Onset: rest Severity of Dyspnea-Max: mild Severity of Dyspnea-Current: mild Possible Cause: frequent episodes Modifying Factors: Improves With: nothing Associated Symptoms: cough, fever, weakness, chills, sweating, No constant, No intermittent, No anxiety, No chest pain/discomfort, No edema, No insomnia, No loss of appetite, No lightheadedness, No wheezing, No ankle swelling, No hemoptysis, No calf pain, No dizziness, No heaviness, No heart racing, No lightheadedness, No leg swelling, No muscle spasms feet, No muscle spasms hands , No painful breathing, No productive cough, No tightness, No tingling face Allergies/Adverse Reactions: hydromorphone HCl [From Dilaudid] Allergy (Severe, Verified 10/25/19 13:48) Anaphylactic Reaction azithromycin [From Zithromax] Allergy (Intermediate, Verified 10/25/19 13:48) Hives erythromycin base [Erythromycin Base] Allergy (Mild, Verified 10/25/19 13:48) Tightness of Throat morphine Adverse Reaction (Verified 10/25/19 13:48) Hives Hx Tetanus, Diphtheria Vaccination/Date Given: No Hx Influenza Vaccination/Date Given: No Hx Pneumococcal Vaccination/Date Given: No Immunizations Up to Date: No Travel Risk - International Travel Have you traveled outside of the country in past 3 weeks: No (n) Have you or anyone close to you been diagnosed with or: No Do your reside in a community with a known COVID-19 case?: Yes If Yes where:: [facility] - Coronavirus Screening Has patient experienced Coronavirus symptoms: Yes Symptoms experienced: fever(equal or > 100.4 F), respiratory symptoms ( i.e.Cought,shortness of breath), weakness Date of fever onset:: 10/24/19 Date of respiratory symptoms onset:: 10/24/19 - Review of Systems Constitutional: Fever, Chills, Fatigue, Lethargy, Malaise Eyes: No Symptoms Ears, Nose, & Throat: Sinus Drainage Respiratory: Cough, Dyspnea, Dyspnea on Exertion (HOWARD) Cardiac: No Symptoms Abdominal/Gastrointestinal: No Symptoms, Nausea, Vomiting, Diarrhea Genitourinary Symptoms: No Symptoms Musculoskeletal: No Symptoms Skin: No Symptoms Neurological: No Symptoms Psychological: No Symptoms Endocrine: No Symptoms Hematologic/Lymphatic: No Symptoms Immunological/Allergic: No Symptoms - Past Medical History Pertinent Past Medical History: Yes Neurological History: No Pertinent History ENT History: No Pertinent History Cardiac History: Arrhythmia, Other Respiratory History: No Pertinent History Endocrine Medical History: No Pertinent History Musculoskeletal History: No Pertinent History GI Medical History: No Pertinent History History: No Pertinent History Psycho-Social History: No Pertinent History Female Reproductive Disorders: No Pertinent History Other Medical History: kidney stones; a-fib - Past Surgical History Past Surgical History: Yes Neuro Surgical History: No Pertinent History Cardiac: No Pertinent History Respiratory: No Pertinent History Gastrointestinal: Appendectomy Genitourinary: No Pertinent History Musculoskeletal: No Pertinent History Female Surgical History: Dilation & Curettage, Section, Tubal Ligation Other Surgical History: D&C, states ultrasound and stress showed irreg. 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 tubal 12/03/15 - Social History Smoking Status: Current every day smoker How long have you smoked: 12 Exposure to second hand smoke: Yes Drug Use: none Patient Lives Alone: No Significant Family History: no pertinent family hx - Female History Hx Now: No - Nursing Vital Signs Nursing Vital Signs: Initial Vital Signs Temperature 98.0 F 10/25/19 23:52 Pulse Rate 98 H 10/25/19 23:52 Respiratory Rate 18 10/25/19 23:52 Blood Pressure 115/76 10/25/19 23:52 O2 Sat by Pulse Oximetry 100 10/25/19 23:52 Pain Scale Pain Intensity 0 - Physical Exam General Appearance: no apparent distress, anxiety Eye Exam: PERRL/EOMI, eyes nml inspection Ears, Nose, Throat Exam: hearing grossly normal, normal ENT inspection, normal pharynx Neck Exam: normal inspection, non-tender, supple, full range of motion, No Brudzinski, No Kernig's Respiratory Exam: normal breath sounds, lungs clear, airway intact, No respiratory distress, No diminished breath sounds, No accessory muscle use Cardiovascular/Chest Exam: normal heart sounds, regular rate/rhythm, normal peripheral pulses, No murmur, No edema, No JVD Abdominal/Gastrointestinal Exam: soft, normal bowel sounds, No tenderness Rectal Exam: deferred Extremity Exam: non-tender, normal range of motion, normal inspection, normal capillary refill, no calf tenderness Neurologic Exam: alert, oriented x 3, cooperative, 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, normal mood/affect, nml cerebellar function, nml station & gait, sensation nml, motor deficits Skin Exam: normal color, warm, dry Lymphatic Exam: No adenopathy SpO2 Interpretation: normal SpO2: 100 O2 Delivery: Room Air - Course Nursing assessment & vital signs reviewed: Yes EKG Interpreted by Me: Sinus Rhythm, LAFB, Right Bundle Branch Block, NORMAL ST- T, Other (Poor R wave progression) Ordered Tests: Active Orders 24 hr Category Date Time Status EKG-ER Only STAT Care 10/26/19 00:06 Active CHEST WITH CONTRAST [CT] Stat Exams 10/26/19 00:05 Ordered CBC W DIFF Stat Lab 10/26/19 00:31 Completed CMP Stat Lab 10/26/19 00:31 Received TROPONIN Q3H Lab 10/26/19 00:31 Received TROPONIN Q3H Lab 10/26/19 03:15 Ordered TROPONIN Q3H Lab 10/26/19 06:15 Ordered TROPONIN Q3H Lab 10/26/19 09:15 Ordered TROPONIN Q3H Lab 10/26/19 12:15 Ordered Lab/Rad Data: Laboratory Result Diagrams 10/26/19 00:31 Laboratory Results 10/26/19 Range/Units 00:31 WBC 8.4 (4.0-10.5) K/mm3 RBC 4.58 (4.1-5.4) M/mm3 Hgb 12.3 (12.0-16.0) gm/dl Hct 38.6 (35-47) % MCV 84.3 (78-100) fl MCH 26.9 (26-32) pg MCHC 31.9 L (32-36) g/dl RDW 15.5 H (11.5-14.0) % Plt Count 315 (150-450) K/mm3 MPV 9.7 (7.5-11.0) fl Gran % 50.9 (36.0-66.0) % Eos # (Auto) 0.14 (0-0.5) Absolute Lymphs (auto) 3.37 (1.0-4.6) Absolute Monos (auto) 0.56 (0.0-1.3) Lymphocytes % 40.3 (24.0-44.0) % Monocytes % 6.7 (0.0-12.0) % Eosinophils % 1.7 (0.00-5.0) % Basophils % 0.4 (0.0-0.4) % Absolute Granulocytes 4.26 (1.4-6.9) Basophils # 0.03 (0-0.4) - Progress Progress: unchanged Air Movement: good Progress Note: 10/26/19 00:54 CTA of chest ordered along w CBC/CMP/Troponin/EKG upon arrival. Pt decided that she did not want work up due to cost. She also refused CTA of chest because of IV dye allergy which was not mentioned earlier. Pt left AMA after risks explained. She was stable during entire stay w good sats and sensorium. Counseled pt/family regarding: need for follow-up - Departure Departure Disposition: Home, A Clinical Impression: Cough, Dyspnea Condition: Stable Critical Care Time: No Referrals: ERNESTO CRUMP [Primary Care Provider] -
== END 2019-10-26 00:50 | disposition left against medical advice (07) ==
LOC: ED 23:50
DX: R05 Cough (principal); R06.00 Dyspnea, unspecified; R50.9 Fever, unspecified; R53.81 Other malaise; Z87.442 Personal history of urinary calculi; Z86.79 Personal history of other diseases of the circulatory system; Z72.0 Tobacco use
CPT/HCPCS: 36415; 80053; 84484; 85025; 93005; 99284

== ENCOUNTER 2019-11-28 20:28 | Emergency (ER) | payer BC ==
--- NOTE | 2019-11-28 20:46 | ERPHSYRPT ---
- History of Present Illness Time Seen by Provider: 11/28/19 20:40 Historian: patient Exam Limitations: no limitations Physician History: Patient is a 34-year-old female presents to our ED with complaints of left-sided chest pain. Pain started approximately 4 hours prior to arrival when she was at work. 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 Patient states that pain radiated into her left jaw and her left shoulder. Patient arrived via EMS. Prior to arrival patient received Zofran. She received 81 mg aspirin x4. Sublingual nitro. Patient states that the nitro triggered her migraine headache. Patient states she wants to hold off on medication at this time. She does not like taking medication per patient. Nitro decreased patient's chest pain from 5-2 per report. No nausea or vomiting. No diarrhea. No trauma. No fever. Symptoms are mild to moderate intensity. Patient is otherwise healthy. She voices no other complaints at this time. Timing/Duration: today Activities at Onset: other (Lifting.) Quality: aching Chest Pain Radiation: jaw Severity of Pain-Max: moderate Severity of Pain-Current: mild Modifying Factors: Improves With: nitroglycerin Associated Symptoms: dizziness Prior Chest Pain/Cardiac Workup: no prior chest pain Nitro Today/Relief: 0.4 mg x 1 Aspirin Treatment Today: 81 mg x 4 Allergies/Adverse Reactions: hydromorphone HCl [From Dilaudid] Allergy (Severe, Verified 11/28/19 20:47) Anaphylactic Reaction azithromycin [From Zithromax] Allergy (Intermediate, Verified 11/28/19 20:47) Hives erythromycin base [Erythromycin Base] Allergy (Mild, Verified 11/28/19 20:47) Tightness of Throat morphine Adverse Reaction (Verified 11/28/19 20:47) Hives Hx Tetanus, Diphtheria Vaccination/Date Given: No Hx Influenza Vaccination/Date Given: No Hx Pneumococcal Vaccination/Date Given: No - Review of Systems Constitutional: No Symptoms, No Fever, No Chills Eyes: No Symptoms Ears, Nose, & Throat: No Symptoms Respiratory: No Symptoms, No Cough, No Dyspnea Cardiac: No Symptoms, No Chest Pain, No Edema, No Syncope Abdominal/Gastrointestinal: No Symptoms, No Abdominal Pain, No Nausea, No Vomiting, No Diarrhea Genitourinary Symptoms: No Symptoms, No Dysuria Musculoskeletal: No Symptoms, No Back Pain, No Neck Pain Skin: No Symptoms, No Rash Neurological: No Symptoms, No Dizziness, No Focal Weakness, No Sensory Changes Psychological: No Symptoms Endocrine: No Symptoms Hematologic/Lymphatic: No Symptoms Immunological/Allergic: No Symptoms All Other Systems: Reviewed and Negative - Past Medical History Pertinent Past Medical History: Yes Neurological History: No Pertinent History ENT History: No Pertinent History Cardiac History: Arrhythmia, Other Respiratory History: No Pertinent History Endocrine Medical History: No Pertinent History Musculoskeletal History: No Pertinent History GI Medical History: No Pertinent History History: No Pertinent History Psycho-Social History: No Pertinent History Female Reproductive Disorders: No Pertinent History Other Medical History: kidney stones; a-fib - Past Surgical History Past Surgical History: Yes Neuro Surgical History: No Pertinent History Cardiac: No Pertinent History Respiratory: No Pertinent History Gastrointestinal: Appendectomy Genitourinary: No Pertinent History Musculoskeletal: No Pertinent History Female Surgical History: Dilation & Curettage, Section, Tubal Ligation Other Surgical History: D&C, states ultrasound and stress showed irreg. 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 tubal 12/03/15 - Social History Smoking Status: Current every day smoker How long have you smoked: 12 Exposure to second hand smoke: Yes Drug Use: none Patient Lives Alone: No Significant Family History: no pertinent family hx - Female History Hx Now: No - Nursing Vital Signs Nursing Vital Signs: Initial Vital Signs Temperature 98.0 F 11/28/19 20:32 Pulse Rate 88 11/28/19 20:32 Respiratory Rate 18 11/28/19 20:32 Blood Pressure 111/70 11/28/19 20:32 O2 Sat by Pulse Oximetry 98 11/28/19 20:32 Pain Scale Pain Intensity 2 - Physical Exam General Appearance: no apparent distress, alert Eye Exam: PERRL/EOMI, eyes nml inspection Ears, Nose, Throat Exam: normal ENT inspection, moist mucous membranes Neck Exam: normal inspection, non-tender, supple, full range of motion Respiratory Exam: normal breath sounds, lungs clear, No respiratory distress Cardiovascular Exam: regular rate/rhythm, normal heart sounds Gastrointestinal/Abdomen Exam: soft, No tenderness, No mass Pelvic Exam: not done Rectal Exam: deferred Back Exam: normal inspection, No CVA tenderness, No vertebral tenderness Extremity Exam: normal inspection, normal range of motion Neurologic Exam: alert, oriented x 3, cooperative, normal mood/affect, sensation nml, No motor deficits Skin Exam: normal color, warm, dry SpO2 Interpretation: normal SpO2: 98 O2 Delivery: Room Air - Course Nursing assessment & vital signs reviewed: Yes EKG Interpreted by Me: RATE ([id number]), Sinus Rhythm, Left [place] Deviation, NORMAL INTERVALS - Radiology Exams Chest X-ray Interpretation: Interpreted by me (Negative chest x-ray. No consolidation no no infiltrate no effusion normal cardiac silhouette normal bony thorax) Ordered Tests: Active Orders 24 hr Category Date Time Status Striper Machine STAT Care 11/28/19 20:32 Active EKG-ER Only STAT Care 11/28/19 20:32 Active IV Insertion STAT Care 11/28/19 20:32 Active Pulse Oximetry (ED) STAT Care 11/28/19 20:32 Active CHEST 1 VIEW (PORTABLE) Stat Exams 11/28/19 20:32 Taken CBC W DIFF Stat Lab 11/28/19 20:46 Completed CMP Stat Lab 11/28/19 20:46 Completed D-DIMER QUANTITATIVE Stat Lab 11/28/19 20:46 Completed HCG,QUALITATIVE URINE Stat Lab 11/28/19 21:21 Completed TROPONIN Q3H Lab 11/28/19 20:46 Completed TROPONIN Q3H Lab 11/28/19 23:45 Ordered TROPONIN Q3H Lab 11/29/19 02:45 Ordered TROPONIN Q3H Lab 11/29/19 05:45 Ordered TROPONIN Q3H Lab 11/29/19 08:45 Ordered UA W/RFX UR CULTURE Stat Lab 11/28/19 21:21 Completed Urine Triage Profile Stat Lab 11/28/19 21:21 Completed Medication Summary Generic Name Dose Route Start Last Admin Trade Name Freq PRN Reason Stop Dose Admin Ceftriaxone Sodium/Dextrose 1 g in 50 mls @ 100 mls/hr 11/28/19 22:08 Rocephin 1 Gm-D5w 50 Ml Bag IV 11/28/19 22:37 STAT STA Lab/Rad Data: Laboratory Result Diagrams 11/28/19 20:46 11/28/19 20:46 Laboratory Results 11/28/19 11/28/19 11/28/19 Range/Units 21:21 21:21 21:21 WBC (4.0-10.5) K/mm3 RBC (4.1-5.4) M/mm3 Hgb (12.0-16.0) gm/dl Hct (35-47) % MCV (78-100) fl MCH (26-32) pg MCHC (32-36) g/dl RDW (11.5-14.0) % Plt Count (150-450) K/mm3 MPV (7.5-11.0) fl Gran % (36.0-66.0) % Eos # (Auto) (0-0.5) Absolute Lymphs (auto) (1.0-4.6) Absolute Monos (auto) (0.0-1.3) Lymphocytes % (24.0-44.0) % Monocytes % (0.0-12.0) % Eosinophils % (0.00-5.0) % Basophils % (0.0-0.4) % Absolute Granulocytes (1.4-6.9) Basophils # (0-0.4) D-Dimer (215-500) ng/mL Sodium (137-145) mmol/L Potassium (3.5-5.1) mmol/L Chloride (98-107) mmol/L Carbon Dioxide (22-30) mmol/L Anion Gap (5-15) MEQ/L BUN (7-17) mg/dL Creatinine (0.52-1.04) mg/dL Estimated GFR ML/MIN Glucose (74-106) mg/dL Calcium (8.4-10.2) mg/dL Total Bilirubin (0.2-1.3) mg/dL AST (14-36) U/L ALT (0-35) U/L Alkaline Phosphatase (38-126) U/L Troponin I (0.000-0.034) ng/mL Serum Total Protein (6.3-8.2) g/dL Albumin (3.5-5.0) g/dL Urine Color GREGORIO (YELLOW) Urine Appearance CLOUDY (CLEAR) Urine pH 6.0 (5-6) Ur Specific [place] 1.028 (1.005-1.025) Urine Protein NEGATIVE (Negative) Urine Ketones NEGATIVE (NEGATIVE) Urine Blood NEGATIVE (0-5) Thang/ul Urine Nitrite NEGATIVE (NEGATIVE) Urine Bilirubin NEGATIVE (NEGATIVE) Urine Urobilinogen 2 (0-1) mg/dL Ur Leukocyte Esterase NEGATIVE (NEGATIVE) Urine WBC (Auto) 6-10 (0-5) /HPF Urine RBC (Auto) 6-10 (0-2) /HPF U Epithel Cells (Auto) FEW (FEW) /HPF Urine Bacteria (Auto) RARE (NEGATIVE) /HPF Urine Mucus (Auto) MODERATE (NEGATIVE) /HPF Urine Culture Reflexed NO (NO) Urine Glucose NEGATIVE (NEGATIVE) mg/dL Urine HCG, Qual NEGATIVE (Negative) Urine Opiates Level NEGATIVE (NEGATIVE) Ur Methadone NEGATIVE (NEGATIVE) Urine Barbiturates NEGATIVE (NEGATIVE) Ur Phencyclidine (PCP) NEGATIVE (NEGATIVE) Urine Amphetamine NEGATIVE (NEGATIVE) U Benzodiazepine Level NEGATIVE (NEGATIVE) Urine Cocaine NEGATIVE (NEGATIVE) Urine Marijuana (THC) NEGATIVE (NEGATIVE) 11/28/19 11/28/19 11/28/19 Range/Units 20:46 20:46 20:46 WBC (4.0-10.5) K/mm3 RBC (4.1-5.4) M/mm3 Hgb (12.0-16.0) gm/dl Hct (35-47) % MCV (78-100) fl MCH (26-32) pg MCHC (32-36) g/dl RDW (11.5-14.0) % Plt Count (150-450) K/mm3 MPV (7.5-11.0) fl Gran % (36.0-66.0) % Eos # (Auto) (0-0.5) Absolute Lymphs (auto) (1.0-4.6) Absolute Monos (auto) (0.0-1.3) Lymphocytes % (24.0-44.0) % Monocytes % (0.0-12.0) % Eosinophils % (0.00-5.0) % Basophils % (0.0-0.4) % Absolute Granulocytes (1.4-6.9) Basophils # (0-0.4) D-Dimer 293 (215-500) ng/mL Sodium 138 (137-145) mmol/L Potassium 3.3 L (3.5-5.1) mmol/L Chloride 110 H (98-107) mmol/L Carbon Dioxide 19 L (22-30) mmol/L Anion Gap 11.5 (5-15) MEQ/L BUN 14 (7-17) mg/dL Creatinine 0.64 (0.52-1.04) mg/dL Estimated GFR > 60.0 ML/MIN Glucose 121 H (74-106) mg/dL Calcium 9.4 (8.4-10.2) mg/dL Total Bilirubin 0.40 (0.2-1.3) mg/dL AST 31 (14-36) U/L ALT 32 (0-35) U/L Alkaline Phosphatase 77 (38-126) U/L Troponin I < 0.012 (0.000-0.034) ng/mL Serum Total Protein 7.6 (6.3-8.2) g/dL Albumin 4.1 (3.5-5.0) g/dL Urine Color (YELLOW) Urine Appearance (CLEAR) Urine pH (5-6) Ur Specific [place] (1.005-1.025) Urine Protein (Negative) Urine Ketones (NEGATIVE) Urine Blood (0-5) Thang/ul Urine Nitrite (NEGATIVE) Urine Bilirubin (NEGATIVE) Urine Urobilinogen (0-1) mg/dL Ur Leukocyte Esterase (NEGATIVE) Urine WBC (Auto) (0-5) /HPF Urine RBC (Auto) (0-2) /HPF U Epithel Cells (Auto) (FEW) /HPF Urine Bacteria (Auto) (NEGATIVE) /HPF Urine Mucus (Auto) (NEGATIVE) /HPF Urine Culture Reflexed (NO) Urine Glucose (NEGATIVE) mg/dL Urine HCG, Qual (Negative) Urine Opiates Level (NEGATIVE) Ur Methadone (NEGATIVE) Urine Barbiturates (NEGATIVE) Ur Phencyclidine (PCP) (NEGATIVE) Urine Amphetamine (NEGATIVE) U Benzodiazepine Level (NEGATIVE) Urine Cocaine (NEGATIVE) Urine Marijuana (THC) (NEGATIVE) 11/28/19 Range/Units 20:46 WBC 9.1 (4.0-10.5) K/mm3 RBC 4.31 (4.1-5.4) M/mm3 Hgb 11.3 L (12.0-16.0) gm/dl Hct 36.3 (35-47) % MCV 84.2 (78-100) fl MCH 26.2 (26-32) pg MCHC 31.1 L (32-36) g/dl RDW 15.8 H (11.5-14.0) % Plt Count 311 (150-450) K/mm3 MPV 9.7 (7.5-11.0) fl Gran % 59.9 (36.0-66.0) % Eos # (Auto) 0.10 (0-0.5) Absolute Lymphs (auto) 2.99 (1.0-4.6) Absolute Monos (auto) 0.53 (0.0-1.3) Lymphocytes % 33.0 (24.0-44.0) % Monocytes % 5.8 (0.0-12.0) % Eosinophils % 1.1 (0.00-5.0) % Basophils % 0.2 (0.0-0.4) % Absolute Granulocytes 5.43 (1.4-6.9) Basophils # 0.02 (0-0.4) D-Dimer (215-500) ng/mL Sodium (137-145) mmol/L Potassium (3.5-5.1) mmol/L Chloride (98-107) mmol/L Carbon Dioxide (22-30) mmol/L Anion Gap (5-15) MEQ/L BUN (7-17) mg/dL Creatinine (0.52-1.04) mg/dL Estimated GFR ML/MIN Glucose (74-106) mg/dL Calcium (8.4-10.2) mg/dL Total Bilirubin (0.2-1.3) mg/dL AST (14-36) U/L ALT (0-35) U/L Alkaline Phosphatase (38-126) U/L Troponin I (0.000-0.034) ng/mL Serum Total Protein (6.3-8.2) g/dL Albumin (3.5-5.0) g/dL Urine Color (YELLOW) Urine Appearance (CLEAR) Urine pH (5-6) Ur Specific [place] (1.005-1.025) Urine Protein (Negative) Urine Ketones (NEGATIVE) Urine Blood (0-5) Thang/ul Urine Nitrite (NEGATIVE) Urine Bilirubin (NEGATIVE) Urine Urobilinogen (0-1) mg/dL Ur Leukocyte Esterase (NEGATIVE) Urine WBC (Auto) (0-5) /HPF Urine RBC (Auto) (0-2) /HPF U Epithel Cells (Auto) (FEW) /HPF Urine Bacteria (Auto) (NEGATIVE) /HPF Urine Mucus (Auto) (NEGATIVE) /HPF Urine Culture Reflexed (NO) Urine Glucose (NEGATIVE) mg/dL Urine HCG, Qual (Negative) Urine Opiates Level (NEGATIVE) Ur Methadone (NEGATIVE) Urine Barbiturates (NEGATIVE) Ur Phencyclidine (PCP) (NEGATIVE) Urine Amphetamine (NEGATIVE) U Benzodiazepine Level (NEGATIVE) Urine Cocaine (NEGATIVE) Urine Marijuana (THC) (NEGATIVE) - Progress Air Movement: good Progress Note: 11/28/19 22:24 Patient reassessed. Patient advised she has urinary tract infection. Patient declined antibiotics. Patient request antibiotics sent to her pharmacy instead. Patient states she is got a migraine and just wants to go home. Patient declined pain medication for second time. Patient states she just needs to sleep. Patient requesting discharge. Patient understands that and her discharge will be AMA. Patient agrees. Patient is of sound mind. Patient is appropriate to make independent informed medical decisions. Patient understand that leaving AMA could result in delayed diagnosis, increased risk of morbidity, mortality, short and long-term disability including . In spite of the risks patient has decided to leave AMA. An AMA form was completed. Patient understands that she may return to our ED or nearest ED at any point for completion of her examination and possible admission. Patient agrees to follow- up with her primary care doctor within 48 hours for reevaluation. Patient left AMA. Blood Culture(s) Obtained: No Antibiotics given: No Counseled pt/family regarding: lab results, diagnosis, need for follow-up, rad results - Departure Departure Disposition: AMA Clinical Impression: UTI (urinary tract infection), Chest pain, Hypokalemia, Hyperglycemia, Metabolic acidosis Condition: Stable Critical Care Time: No Referrals: ERNESTO CRUMP [Primary Care Provider] - Instructions: Chest Pain (DC) Additional Instructions: Discharge/Care Plan ANTONIOTAMRA CARLOS EDUARDO was seen on 11/28/19 in the Emergency Room. The patient was counseled regarding Diagnosis,Lab results, Imaging studies, need for follow up and when to return to the Emergency Room. Prescriptions given: Discharge Note I have spoken with the patient and/or caregivers. I have explained the patient's condition, diagnosis and treatment plan based on the information available to me at this time. I have answered the patient's and/or caregiver's questions and addressed any concerns. The patient and/or caregivers have as good understanding of the patient's diagnosis, condition and treatment plan as can be expected at this point. The vital signs have been stable. The patient's condition is stable and appropriate for discharge from the emergency department. The patient will pursue further outpatient evaluation with the primary care physician or other designated or consulting physician as outlined in the discharge instructions. The patient and/or caregivers are agreeable to this plan of care and follow-up instructions have been explained in detail. The patient and/or caregivers have received these instruction. The patient/and or caregivers are aware that any significant change in condition or worsening of symptoms should prompt an immediate return to this or the closest emergency department or call 911. Prescriptions: Nitrofurantoin Macro 100 mg [Macrobid 100MG Capsule] 100 mg PO BID 7 Days #14 capsule
[2019-11-28 20:50] LABS: Absolute Neutrophil Ct (ANC) 5.43 (1.4-6.9); BASOPHIL % 0.2 % (0.0-0.4); Basophil (Absolute #) 0.02 (0-0.4); Eosinophil % 1.1 % (0.00-5.0); Hematocrit 36.3 % (35-47); Hemoglobin 11.3 gm/dl (12.0-16.0); Lymphocyte (Absolute #) 2.99 (1.0-4.6); Mean Cell Volume 84.2 fl (78-100); Mean Corpuscular Hemoglobin 26.2 pg (26-32); Mean Corpuscular Hgb Concent. 31.1 g/dl (32-36); Mean Platelet Volume 9.7 fl (7.5-11.0); Monocyte (Absolute #) 0.53 (0.0-1.3); Monocytes % 5.8 % (0.0-12.0); Neutrophil % 59.9 % (36.0-66.0); Platelet Count 311 K/mm3 (150-450); Red Blood Count 4.31 M/mm3 (4.1-5.4); Red Cell Distribution Width 15.8 % (11.5-14.0); White Blood Count 9.1 K/mm3 (4.0-10.5)
[2019-11-28 21:04] LABS: ALBUMIN 4.1 g/dL (3.5-5.0); ALKALINE PHOSPHATASE 77 U/L (38-126); ANION GAP 11.5 MEQ/L (5-15); BLOOD UREA NITROGEN 14 mg/dL (7-17); CHLORIDE 110 mmol/L (98-107); Calcium 9.4 mg/dL (8.4-10.2); Carbon Dioxide 19 mmol/L (22-30); Creatinine 1 0.64 mg/dL (0.52-1.04); Glucose 121 mg/dL (74-106); Potassium 3.3 mmol/L (3.5-5.1); SGOT/AST 31 U/L (14-36); SGPT/ALT 32 U/L (0-35); SODIUM 138 mmol/L (137-145); Total Protein 7.6 g/dL (6.3-8.2)
[2019-11-28 21:25] LABS: Appearance CLOUDY (CLEAR); Bacteria RARE /HPF (NEGATIVE); Bilirubin NEGATIVE (NEGATIVE); Blood NEGATIVE Ery/ul (0-5); Epithelial Cells FEW /HPF (FEW); Glucose NEGATIVE (NEGATIVE); Ketones NEGATIVE (NEGATIVE); Leukocyte Esterase NEGATIVE (NEGATIVE); Mucus MODERATE /HPF (NEGATIVE); Nitrite NEGATIVE (NEGATIVE); Protein,Urine Dip NEGATIVE (Negative); Specific Gravity 1.028 (1.005-1.025); Urobilinogen 2 mg/dL (0-1)
[2019-11-28 21:37] LABS: Amphetamine,Urine NEGATIVE (NEGATIVE); Barbiturate,Urine NEGATIVE (NEGATIVE); Benzodiazepine,Urine NEGATIVE (NEGATIVE); Cocaine,Urine NEGATIVE (NEGATIVE); Methadone,Urine NEGATIVE (NEGATIVE); Opiate,Urine NEGATIVE (NEGATIVE); PCP,Urine NEGATIVE (NEGATIVE); THC,Urine NEGATIVE (NEGATIVE)
[2019-11-28] MEDS ORDERED: ROCEPHIN 1 Gm-D5w 50 ml Bag** 1 G/50 ML IVPB IV STA (22:08)
[2019-11-28] MEDS ORDERED: ROCEPHIN 1 Gm-D5w 50 ml Bag** 0 G/0 ML IVPB IV ONE (22:14)
[2019-11-28 22:17] VITALS: BP 115/78; PULSE 79
[2019-11-28 22:23] VITALS: O2SAT 98
--- NOTE | 2019-11-29 08:43 | XRAY ---
Indication: Chest pain. Comparison: October 25, 2019. Portable chest continues to demonstrate normal heart, lungs, and bony thorax.
== END 2019-11-28 22:27 | disposition left against medical advice (07) ==
LOC: ED 20:28
DX: N39.0 Urinary tract infection, site not specified (principal); R07.9 Chest pain, unspecified; E87.6 Hypokalemia; E87.2 Acidosis; R73.9 Hyperglycemia, unspecified; X50.0XXA Overexertion from strenuous movement or load, initial encounter; Y93.89 Activity, other specified; Y92.9 Unspecified place or not applicable
CPT/HCPCS: 36000; 36415; 71045; 80053; 80307; 81001; 84484; 84703; 85025; 85379; 93005; 93041; 94760; 99284; J0696

== ENCOUNTER 2020-02-28 20:25 | Emergency (ER) | payer SELFPAY ==
[2020-02-28] MEDS ORDERED: Ativan 1 MG PO ONE (20:52)
[2020-02-28] MEDS ORDERED: Ativan 1 MG ONE (20:57)
--- NOTE | 2020-02-28 21:00 | ERPHSYRPT ---
- History of Present Illness Time Seen by Provider: 02/28/20 20:45 Source: patient Exam Limitations: no limitations Patient Subjective Stated Complaint: pt states that she has not ate in the past 4 days due to nerves, pt states that 20 minutes prior to arrival she began to have headache with dizziness, pt states that she has numbness and tingling to arms and feet Triage Nursing Assessment: pt came into the er via wheelchair, pt is axo x 4, c/o headache and dizziness, states 7/10 pain to head, pupils 3 mm and PERRL, strong promotional model present, pt has tremors, pt is anxious, clear lung sounds in all lobes, clear heart tones, tachycardia Physician History: For the past 30 minutes pt has had a panic attack with frontal headache, dizziness and tingling of extremities; denies chest pain, shortness of air, fever; admits to diarrhea once today without blood. 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 Allergies/Adverse Reactions: hydromorphone HCl [From Dilaudid] Allergy (Severe, Verified 02/28/20 20:34) Anaphylactic Reaction azithromycin [From Zithromax] Allergy (Intermediate, Verified 02/28/20 20:34) Hives erythromycin base [Erythromycin Base] Allergy (Mild, Verified 02/28/20 20:34) Tightness of Throat morphine Adverse Reaction (Verified 02/28/20 20:34) Hives Home Medications: No Reportable Medications [No Reported Medications] 02/28/20 [History] Hx Tetanus, Diphtheria Vaccination/Date Given: Yes Hx Influenza Vaccination/Date Given: No Hx Pneumococcal Vaccination/Date Given: No Travel Risk - International Travel Have you traveled outside of the country in past 3 weeks: No - Coronavirus Screening Are you exhibiting any of the following symptoms?: Yes Symptoms: Vomiting/Diarrhea, Headaches/Body Aches/Fatigue Close contact with a COVID-19 positive Pt in past 14-21 Days: No - Review of Systems Abdominal/Gastrointestinal: Diarrhea Neurological: Dizziness, Headache, Other (tingling of extremities & anxiety today.) All Other Systems: Reviewed and Negative - Past Medical History Pertinent Past Medical History: Yes Neurological History: No Pertinent History ENT History: No Pertinent History Cardiac History: Arrhythmia, Other Respiratory History: No Pertinent History Endocrine Medical History: No Pertinent History Musculoskeletal History: No Pertinent History GI Medical History: No Pertinent History History: No Pertinent History Psycho-Social History: No Pertinent History Female Reproductive Disorders: No Pertinent History Other Medical History: kidney stones; a-fib - Past Surgical History Past Surgical History: Yes Neuro Surgical History: No Pertinent History Cardiac: No Pertinent History Respiratory: No Pertinent History Gastrointestinal: Appendectomy Genitourinary: No Pertinent History Musculoskeletal: No Pertinent History Female Surgical History: Dilation & Curettage, Section, Tubal Ligation Other Surgical History: D&C, states ultrasound and stress showed irreg. 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 tubal 12/03/15 - Social History Smoking Status: Former smoker How long have you smoked: 12 Exposure to second hand smoke: Yes Drug Use: none Patient Lives Alone: No Significant Family History: no pertinent family hx - Female History Hx Now: No - Nursing Vital Signs Nursing Vital Signs: Initial Vital Signs Temperature 97.9 F 02/28/20 20:37 Pulse Rate 102 H 02/28/20 20:37 Respiratory Rate 18 02/28/20 20:37 Blood Pressure 119/77 02/28/20 20:37 O2 Sat by Pulse Oximetry 100 02/28/20 20:37 Pain Scale Pain Intensity 0 - Physical Exam General Appearance: alert, anxiety Eye Exam: PERRL/EOMI Ears, Nose, Throat Exam: TMs normal, pharynx normal, moist mucous membranes Neck Exam: normal inspection Respiratory Exam: lungs clear Cardiovascular Exam: normal heart sounds Gastrointestinal/Abdominal Exam: soft, normal bowel sounds Back Exam: normal range of motion Extremity Exam: normal range of motion Mental 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, 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 Exam: normal hearing, normal speech, PERRL, tongue midline Motor/Sensory Exam: no motor deficit, no sensory deficit Skin Exam: warm, dry SpO2 Interpretation: normal SpO2: 100 O2 Delivery: Room Air - Course Nursing assessment & vital signs reviewed: Yes Ordered Tests: Active Orders 24 hr Category Date Time Status AMYLASE Stat Lab 02/28/20 20:55 Completed CBC W DIFF Stat Lab 02/28/20 20:55 Completed CMP Stat Lab 02/28/20 20:55 Completed HCG QUALITATIVE,SERUM Stat Lab 02/28/20 20:55 Completed LIPASE Stat Lab 02/28/20 20:55 Completed POCT GLUCOSE Stat Lab 02/28/20 20:35 Received POCT GLUCOSE Stat Lab 02/28/20 20:36 Completed UA W/RFX UR CULTURE Stat Lab 02/28/20 21:37 Completed Urine Triage Profile Stat Lab 02/28/20 21:37 Completed Medication Summary Discontinued Medications Generic Name Dose Route Start Last Admin Trade Name Soloq PRN Reason Stop Dose Admin Lorazepam 1 mg 02/28/20 20:52 02/28/20 20:58 Ativan 1 Mg PO 02/28/20 20:53 1 mg STAT ONE Administration Lorazepam Confirm 02/28/20 20:57 Ativan 1 Mg Administered 02/28/20 20:58 Dose 1 mg .ROUTE .STK-MED ONE Ondansetron HCl 4 mg 02/28/20 22:10 02/28/20 22:14 Zofran Odt 4 Mg PO 02/28/20 22:11 4 mg STAT ONE Administration Ondansetron HCl Confirm 02/28/20 22:13 Zofran Odt 4 Mg Administered 02/28/20 22:14 Dose 4 mg .ROUTE .STK-MED ONE Ondansetron HCl 4 mg 02/28/20 22:15 Zofran 4 Mg/2 Ml Vial IV 02/28/20 22:16 STAT ONE Promethazine HCl 25 mg 02/28/20 21:49 02/28/20 22:00 Phenergan 25 Mg Inj IM 02/28/20 21:50 Not Given STAT ONE Promethazine HCl Confirm 02/28/20 21:53 Phenergan 25 Mg Inj Administered 02/28/20 21:54 Dose 25 mg .ROUTE .STK-MED ONE Lab/Rad Data: Laboratory Result Diagrams 02/28/20 20:55 02/28/20 20:55 Laboratory Results 02/28/20 02/28/20 02/28/20 Range/Units 21:37 21:37 20:55 WBC (4.0-10.5) K/mm3 RBC (4.1-5.4) M/mm3 Hgb (12.0-16.0) gm/dl Hct (35-47) % MCV (78-100) fl MCH (26-32) pg MCHC (32-36) g/dl RDW (11.5-14.0) % Plt Count (150-450) K/mm3 MPV (7.5-11.0) fl Gran % (36.0-66.0) % Eos # (Auto) (0-0.5) Absolute Lymphs (auto) (1.0-4.6) Absolute Monos (auto) (0.0-1.3) Lymphocytes % (24.0-44.0) % Monocytes % (0.0-12.0) % Eosinophils % (0.00-5.0) % Basophils % (0.0-0.4) % Absolute Granulocytes (1.4-6.9) Basophils # (0-0.4) Sodium (137-145) mmol/L Potassium (3.5-5.1) mmol/L Chloride (98-107) mmol/L Carbon Dioxide (22-30) mmol/L Anion Gap (5-15) MEQ/L BUN (7-17) mg/dL Creatinine (0.52-1.04) mg/dL Estimated GFR ML/MIN Glucose (74-106) mg/dL POC Glucometer (74 to 106) mg/dL Calcium (8.4-10.2) mg/dL Total Bilirubin (0.2-1.3) mg/dL AST (14-36) U/L ALT (0-35) U/L Alkaline Phosphatase (38-126) U/L Serum Total Protein (6.3-8.2) g/dL Albumin (3.5-5.0) g/dL Amylase (30-110) U/L Lipase (23-300) U/L Serum , Qual NEGATIVE (Negative) Urine Color YELLOW (YELLOW) Urine Appearance CLEAR (CLEAR) Urine pH 6.0 (5-6) Ur Specific [place] 1.008 (1.005-1.025) Urine Protein NEGATIVE (Negative) Urine Ketones NEGATIVE (NEGATIVE) Urine Blood LARGE (0-5) Thang/ul Urine Nitrite NEGATIVE (NEGATIVE) Urine Bilirubin NEGATIVE (NEGATIVE) Urine Urobilinogen NEGATIVE (0-1) mg/dL Ur Leukocyte Esterase NEGATIVE (NEGATIVE) Urine WBC (Auto) 3-5 (0-5) /HPF Urine RBC (Auto) 26-50 (0-2) /HPF U Epithel Cells (Auto) NONE (FEW) /HPF Urine Bacteria (Auto) NONE SEEN (NEGATIVE) /HPF Urine Mucus (Auto) SLIGHT (NEGATIVE) /HPF Urine Culture Reflexed NO (NO) Urine Glucose NEGATIVE (NEGATIVE) mg/dL Urine Opiates Level NEGATIVE (NEGATIVE) Ur Methadone NEGATIVE (NEGATIVE) Urine Barbiturates NEGATIVE (NEGATIVE) Ur Phencyclidine (PCP) NEGATIVE (NEGATIVE) Urine Amphetamine NEGATIVE (NEGATIVE) U Benzodiazepine Level NEGATIVE (NEGATIVE) Urine Cocaine NEGATIVE (NEGATIVE) Urine Marijuana (THC) NEGATIVE (NEGATIVE) 02/28/20 02/28/20 02/28/20 Range/Units 20:55 20:55 20:36 WBC 7.0 (4.0-10.5) K/mm3 RBC 4.72 (4.1-5.4) M/mm3 Hgb 12.4 (12.0-16.0) gm/dl Hct 39.8 (35-47) % MCV 84.3 (78-100) fl MCH 26.3 (26-32) pg MCHC 31.2 L (32-36) g/dl RDW 15.9 H (11.5-14.0) % Plt Count 339 (150-450) K/mm3 MPV 10.0 (7.5-11.0) fl Gran % 57.1 (36.0-66.0) % Eos # (Auto) 0.08 (0-0.5) Absolute Lymphs (auto) 2.45 (1.0-4.6) Absolute Monos (auto) 0.44 (0.0-1.3) Lymphocytes % 35.2 (24.0-44.0) % Monocytes % 6.3 (0.0-12.0) % Eosinophils % 1.1 (0.00-5.0) % Basophils % 0.3 (0.0-0.4) % Absolute Granulocytes 3.98 (1.4-6.9) Basophils # 0.02 (0-0.4) Sodium 138 (137-145) mmol/L Potassium 3.5 (3.5-5.1) mmol/L Chloride 107 (98-107) mmol/L Carbon Dioxide 21 L (22-30) mmol/L Anion Gap 14.1 (5-15) MEQ/L BUN 10 (7-17) mg/dL Creatinine 0.59 (0.52-1.04) mg/dL Estimated GFR > 60.0 ML/MIN Glucose 124 H (74-106) mg/dL POC Glucometer 128 H (74 to 106) mg/dL Calcium 9.6 (8.4-10.2) mg/dL Total Bilirubin 0.20 (0.2-1.3) mg/dL AST 22 (14-36) U/L ALT 18 (0-35) U/L Alkaline Phosphatase 68 (38-126) U/L Serum Total Protein 8.5 H (6.3-8.2) g/dL Albumin 4.6 (3.5-5.0) g/dL Amylase 59 (30-110) U/L Lipase 112 (23-300) U/L Serum , Qual (Negative) Urine Color (YELLOW) Urine Appearance (CLEAR) Urine pH (5-6) Ur Specific [place] (1.005-1.025) Urine Protein (Negative) Urine Ketones (NEGATIVE) Urine Blood (0-5) Thang/ul Urine Nitrite (NEGATIVE) Urine Bilirubin (NEGATIVE) Urine Urobilinogen (0-1) mg/dL Ur Leukocyte Esterase (NEGATIVE) Urine WBC (Auto) (0-5) /HPF Urine RBC (Auto) (0-2) /HPF U Epithel Cells (Auto) (FEW) /HPF Urine Bacteria (Auto) (NEGATIVE) /HPF Urine Mucus (Auto) (NEGATIVE) /HPF Urine Culture Reflexed (NO) Urine Glucose (NEGATIVE) mg/dL Urine Opiates Level (NEGATIVE) Ur Methadone (NEGATIVE) Urine Barbiturates (NEGATIVE) Ur Phencyclidine (PCP) (NEGATIVE) Urine Amphetamine (NEGATIVE) U Benzodiazepine Level (NEGATIVE) Urine Cocaine (NEGATIVE) Urine Marijuana (THC) (NEGATIVE) - Progress Progress: improved Counseled pt/family regarding: lab results - Departure Departure Disposition: Home Clinical Impression: Anxiety, Headache Condition: Stable Critical Care Time: No Referrals: ERNESTO CRUMP [Primary Care Provider] - Instructions: Headache, Adult (DC)
[2020-02-28 21:06] LABS: Absolute Neutrophil Ct (ANC) 3.98 (1.4-6.9); BASOPHIL % 0.3 % (0.0-0.4); Basophil (Absolute #) 0.02 (0-0.4); Eosinophil % 1.1 % (0.00-5.0); Eosinophil (Absolute #) 0.08 (0-0.5); Hematocrit 39.8 % (35-47); Hemoglobin 12.4 gm/dl (12.0-16.0); Lymphocyte (Absolute #) 2.45 (1.0-4.6); Lymphocytes % 35.2 % (24.0-44.0); Mean Cell Volume 84.3 fl (78-100); Mean Corpuscular Hemoglobin 26.3 pg (26-32); Mean Corpuscular Hgb Concent. 31.2 g/dl (32-36); Monocyte (Absolute #) 0.44 (0.0-1.3); Monocytes % 6.3 % (0.0-12.0); Neutrophil % 57.1 % (36.0-66.0); Platelet Count 339 K/mm3 (150-450); Red Blood Count 4.72 M/mm3 (4.1-5.4); Red Cell Distribution Width 15.9 % (11.5-14.0)
[2020-02-28 21:19] LABS: ALBUMIN 4.6 g/dL (3.5-5.0); ALKALINE PHOSPHATASE 68 U/L (38-126); AMYLASE 59 U/L (30-110); ANION GAP 14.1 MEQ/L (5-15); BLOOD UREA NITROGEN 10 mg/dL (7-17); CHLORIDE 107 mmol/L (98-107); Calcium 9.6 mg/dL (8.4-10.2); Carbon Dioxide 21 mmol/L (22-30); Creatinine 1 0.59 mg/dL (0.52-1.04); EST GLOMERULAR FILTRATION RATE > 60.0 ML/MIN; Glucose 124 mg/dL (74-106); LIPASE 112 U/L (23-300); Potassium 3.5 mmol/L (3.5-5.1); SGOT/AST 22 U/L (14-36); SGPT/ALT 18 U/L (0-35); SODIUM 138 mmol/L (137-145); Total Protein 8.5 g/dL (6.3-8.2)
[2020-02-28 21:46] LABS: Appearance CLEAR (CLEAR); Bilirubin NEGATIVE (NEGATIVE); Blood LARGE Ery/ul (0-5); Glucose NEGATIVE (NEGATIVE); Ketones NEGATIVE (NEGATIVE); Leukocyte Esterase NEGATIVE (NEGATIVE); Mucus SLIGHT /HPF (NEGATIVE); Nitrite NEGATIVE (NEGATIVE); Protein,Urine Dip NEGATIVE (Negative); RBC 26-50 /HPF (0-2); Specific Gravity 1.008 (1.005-1.025); Urobilinogen NEGATIVE mg/dL (0-1)
[2020-02-28 21:48] LABS: Bacteria NONE SEEN /HPF (NEGATIVE)
[2020-02-28] MEDS ORDERED: Phenergan 25 MG INJ IM ONE (21:49)
[2020-02-28 21:51] VITALS: O2SAT 100
[2020-02-28] MEDS ORDERED: Phenergan 25 MG INJ ONE (21:53)
[2020-02-28 22:08] LABS: Amphetamine,Urine NEGATIVE (NEGATIVE); Barbiturate,Urine NEGATIVE (NEGATIVE); Benzodiazepine,Urine NEGATIVE (NEGATIVE); Cocaine,Urine NEGATIVE (NEGATIVE); Methadone,Urine NEGATIVE (NEGATIVE); Opiate,Urine NEGATIVE (NEGATIVE); PCP,Urine NEGATIVE (NEGATIVE); THC,Urine NEGATIVE (NEGATIVE)
[2020-02-28] MEDS ORDERED: ZOFRAN ODT 4 MG PO ONE (22:10)
[2020-02-28] MEDS ORDERED: ZOFRAN ODT 4 MG ONE (22:13)
[2020-02-28] MEDS ORDERED: Zofran 4 MG/2 ML VIAL IV ONE (22:15)
[2020-02-28 22:17] VITALS: BP 124/70; PULSE 89
[2020-02-28] MEDS ORDERED: TYLENOL 325 MG PO ONE (22:17)
[2020-02-28] MEDS ORDERED: TYLENOL 325 MG ONE (22:25)
== END 2020-02-28 22:36 | disposition home or self-care (01) ==
LOC: ED 20:25
DX: F41.9 Anxiety disorder, unspecified (principal); R51.9 Headache, unspecified
CPT/HCPCS: 36415; 80053; 80307; 81001; 81025; 82150; 82962; 83690; 85025; 99284; J2550; Q0162; A9270-GY

== ENCOUNTER 2020-03-02 16:40 | Emergency (ER) | payer SELFPAY ==
--- NOTE | 2020-03-02 16:45 | ERPHSYRPT ---
- History of Present Illness Time Seen by Provider: 03/02/20 16:44 Source: patient Exam Limitations: no limitations Physician History: This is a 34-year-old white female who presents with recurrent panic attacks. Patient was seen here in this emergency department on 02/28/2020. Patient was exhibiting symptoms consistent with panic attack and anxiety issues at that time and she presents today with similar complaints. Patient had a significant work- up done including urinalysis and blood draws. Her lab work showed no emergent issues. Patient is not suicidal and she is not homicidal. She is currently not on any antianxiety medications per her report. Patient states that she is a "tired soul". After her evaluation in this emergency department on 02/28/2020, patient went to [facility] in [facility] and was given a similar diagnosis and a few days of Ativan which helped her. Her last dose of Ativan was 6:00 PM on 03/01/2020. Patient sees a psychiatrist on 03/04/2020. However, her symptoms were worse today and she did not know what to do. Timing/Duration: worse (Worse today), other (Chronic recurring) Severity: mild Associated Symptoms: loss of appetite, weakness, other (Similar symptoms to her other panic attacks and anxiety issues.) Allergies/Adverse Reactions: hydromorphone HCl [From Dilaudid] Allergy (Severe, Verified 02/28/20 20:34) Anaphylactic Reaction azithromycin [From Zithromax] Allergy (Intermediate, Verified 02/28/20 20:34) Hives erythromycin base [Erythromycin Base] Allergy (Mild, Verified 02/28/20 20:34) Tightness of Throat morphine Adverse Reaction (Verified 02/28/20 20:34) Hives Hx Tetanus, Diphtheria Vaccination/Date Given: Yes Hx Influenza Vaccination/Date Given: No Hx Pneumococcal Vaccination/Date Given: No Travel Risk - International Travel Have you traveled outside of the country in past 3 weeks: No - Coronavirus Screening Are you exhibiting any of the following symptoms?: No Close contact with a COVID-19 positive Pt in past 14-21 Days: No - Review of Systems Constitutional: No Symptoms Eyes: No Symptoms Ears, Nose, & Throat: No Symptoms Respiratory: No Symptoms Cardiac: No Symptoms Abdominal/Gastrointestinal: Appetite Changes (Not eating the same as she usually does in the last few days) Genitourinary Symptoms: No Symptoms Musculoskeletal: No Symptoms Skin: No Symptoms Neurological: No Symptoms Psychological: Anxiety, No Suicidal Ideations, No Homicidal Ideations, No Hallucinations Endocrine: No Symptoms Hematologic/Lymphatic: No Symptoms Immunological/Allergic: No Symptoms All Other Systems: Reviewed and Negative - Past Medical History Pertinent Past Medical History: Yes Neurological History: No Pertinent History ENT History: No Pertinent History Cardiac History: Arrhythmia, Other Respiratory History: No Pertinent History Endocrine Medical History: No Pertinent History Musculoskeletal History: No Pertinent History GI Medical History: No Pertinent History History: No Pertinent History Psycho-Social History: No Pertinent History Female Reproductive Disorders: No Pertinent History Other Medical History: kidney stones; a-fib - Past Surgical History Past Surgical History: Yes Neuro Surgical History: No Pertinent History Cardiac: No Pertinent History Respiratory: No Pertinent History Gastrointestinal: Appendectomy Genitourinary: No Pertinent History Musculoskeletal: No Pertinent History Female Surgical History: Dilation & Curettage, Section, Tubal Ligation Other Surgical History: D&C, states ultrasound and stress showed irreg. 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 tubal 12/03/15 - Social History Smoking Status: Former smoker How long have you smoked: 12 Exposure to second hand smoke: Yes Drug Use: none Patient Lives Alone: No Significant Family History: no pertinent family hx - Nursing Vital Signs Nursing Vital Signs: Initial Vital Signs Temperature 98.4 F 03/02/20 16:47 Pulse Rate 99 H 03/02/20 16:47 Respiratory Rate 24 03/02/20 16:47 Blood Pressure 118/90 03/02/20 16:47 O2 Sat by Pulse Oximetry 99 03/02/20 16:47 Pain Scale Pain Intensity 0 - Physical Exam General Appearance: no apparent distress, alert, anxiety Eye Exam: PERRL/EOMI, eyes nml inspection Ears, Nose, Throat Exam: normal ENT inspection, moist mucous membranes Neck Exam: normal inspection, non-tender, supple, full range of motion Respiratory Exam: normal breath sounds, lungs clear, airway intact, No chest tenderness, No respiratory distress Cardiovascular Exam: regular rate/rhythm, normal heart sounds, normal peripheral pulses Gastrointestinal/Abdomen Exam: soft, normal bowel sounds, No tenderness Pelvic Exam: not done Rectal Exam: not done Back Exam: normal inspection, normal range of motion, No CVA tenderness, No vertebral tenderness Extremity Exam: normal inspection, normal range of motion, pelvis stable Neurologic Exam: alert, oriented x 3, cooperative, recep II-XII nml as tested, nml cerebellar function, nml station & gait Skin Exam: normal color, warm, dry Lymphatic Exam: No adenopathy SpO2 Interpretation: normal O2 Delivery: Room Air - Course Nursing assessment & vital signs reviewed: Yes - Progress Progress: improved Progress Note: 03/02/20 17:12 Medical decision making: After interviewing and examining the patient, the patient prefers not to have an extensive work-up. She feels her symptoms are secondary to panic attack anxiety. She is out of her medication. She states that Ativan orally works well for her. I think it is reasonable, after reviewing her normal lab work from 3 days ago, to treat her with a few pills of Ativan 0.5 mg. She sees a psychiatrist on 03/04/2020. We will give her 1 mg Ativan here in the emergency department since she does have a ride home and then a prescription for 3 tablets of Ativan 0.5 mg will be sent to her pharmacy. Counseled pt/family regarding: diagnosis, need for follow-up - Departure Departure Disposition: Home Clinical Impression: Panic attack Condition: Stable Critical Care Time: No Referrals: ERNESTO CRUMP [Primary Care Provider] - Additional Instructions: Take your medication as prescribed. Keep your appointment with your psychiatrist/behavioral health on 03/04/2020. Prescriptions: Lorazepam 0.5 mg [Ativan 0.5 MG] 0.5 mg PO TID PRN #3 tablet PRN Reason: Anxiety
[2020-03-02] MEDS ORDERED: Ativan 1 MG PO ONE (17:16)
[2020-03-02 17:24] VITALS: BP 136/72; O2SAT 98
[2020-03-02 17:26] VITALS: PULSE 79
[2020-03-02] MEDS ORDERED: Ativan 1 MG ONE (17:30)
== END 2020-03-02 17:44 | disposition home or self-care (01) ==
LOC: ED 16:40
DX: F41.0 Panic disorder [episodic paroxysmal anxiety] (principal)
CPT/HCPCS: 99283; A9270-GY

== ENCOUNTER 2020-03-16 15:29 | Emergency (ER) | payer SELFPAY ==
[2020-03-16] MEDS ORDERED: Sodium Chloride 0.9% 1000 ML 1,000 ML IV STA (15:59)
[2020-03-16 16:06] LABS: VBG BASE EXCESS 1.1 (-2.0-2.0); VBG CARBOXYHEMOGLOBIN 2.8 % T HGB (0.0-6.9); VBG HCO3- 22.9 meq/L (22-28); VBG HEMOGLOBIN 12.9; VBG O2 SATURATION 90.7 (95-100); VBG POTASSIUM 3.8 (3.5-5.1); VBG pH 7.52 (7.32-7.42)
[2020-03-16 16:08] LABS: Absolute Neutrophil Ct (ANC) 3.83 (1.4-6.9); BASOPHIL % 0.3 % (0.0-0.4); Basophil (Absolute #) 0.02 (0-0.4); Eosinophil % 0.9 % (0.00-5.0); Eosinophil (Absolute #) 0.06 (0-0.5); Hematocrit 38.6 % (35-47); Hemoglobin 12.1 gm/dl (12.0-16.0); Lymphocyte (Absolute #) 2.28 (1.0-4.6); Lymphocytes % 34.4 % (24.0-44.0); Mean Cell Volume 83.7 fl (78-100); Mean Corpuscular Hemoglobin 26.2 pg (26-32); Mean Corpuscular Hgb Concent. 31.3 g/dl (32-36); Mean Platelet Volume 10.4 fl (7.5-11.0); Monocyte (Absolute #) 0.43 (0.0-1.3); Monocytes % 6.5 % (0.0-12.0); Neutrophil % 57.9 % (36.0-66.0); Platelet Count 300 K/mm3 (150-450); Red Blood Count 4.61 M/mm3 (4.1-5.4); White Blood Count 6.6 K/mm3 (4.0-10.5)
[2020-03-16] MEDS ORDERED: Sodium Chloride 0.9% 1000 ML 1,000 ML ONE (16:11)
--- NOTE | 2020-03-16 16:12 | ERPHSYRPT ---
- History of Present Illness Time Seen by Provider: 03/16/20 15:50 Source: patient Exam Limitations: no limitations Patient Subjective Stated Complaint: Pt states that she began taking Lorazepam a week ago and is now to breaking them in 0.25 tablets and she continues to have eye burning and her face feels weird, she states that if feels like the room spins Triage Nursing Assessment: Pt brought to the ER by her and to the back ambulance bay, pt felt she was having an allergic reaction to Lorazepam, vitals wnl, pulses normal, denies pain, skin n/w/d, last pill taken approximately 1510, doesn't appear to be in any distress Physician History: Has been having increasing dyspnea, dizziness and headache over the past week. Patient states she has history of panic attacks and was given a short course of lorazepam in the emergency department and her primary care provider gave her a refill, but she has been decreasing the dosage over the past week although still having symptoms. Biggest symptom that brought her in this day is dyspnea. Patient is not been seen by her primary care provider to discuss her symptoms while taking the lorazepam. Timing/Duration: day(s) (3) Activities at Onset: none Severity of Dyspnea-Max: moderate Severity of Dyspnea-Current: none Possible Cause: occasional episodes (Occurs with panic attacks) Modifying Factors: Improves With: nothing Associated Symptoms: intermittent, anxiety, lightheadedness, dizziness, tingling face, No cough, No chest pain/discomfort, No edema, No fever, No loss of appetit e, No weakness, No ankle swelling, No chills, No hemoptysis, No calf pain, No heaviness, No heart racing, No leg swelling, No painful breathing, No productive cough, No sweating Allergies/Adverse Reactions: hydromorphone HCl [From Dilaudid] Allergy (Severe, Verified 02/28/20 20:34) Anaphylactic Reaction azithromycin [From Zithromax] Allergy (Intermediate, Verified 02/28/20 20:34) Hives erythromycin base [Erythromycin Base] Allergy (Mild, Verified 02/28/20 20:34) Tightness of Throat diphenhydramine [From Benadryl] Adverse Reaction (Intermediate, Verified 03/16/20 15:41) Vomiting morphine Adverse Reaction (Verified 02/28/20 20:34) Hives Home Medications: Lorazepam 0.5 mg [Ativan 0.5 MG] 0.5 mg PO BID 03/16/20 [History] Hx Tetanus, Diphtheria Vaccination/Date Given: Yes Hx Influenza Vaccination/Date Given: No Hx Pneumococcal Vaccination/Date Given: No Travel Risk - International Travel Have you traveled outside of the country in past 3 weeks: No - Coronavirus Screening Are you exhibiting any of the following symptoms?: No Close contact with a COVID-19 positive Pt in past 14-21 Days: No - Review of Systems Constitutional: No Fever, No Chills, No Weakness Eyes: No Eye Pain, No Vision Changes Ears, Nose, & Throat: No Ear Discharge, No Nose Congestion, No Mouth Swelling, No Throat Pain, No Throat Swelling, No Painful Swallowing Respiratory: Dyspnea, No Cough Cardiac: No Chest Pain, No Edema, No Syncope Abdominal/Gastrointestinal: No Abdominal Pain, No Nausea, No Vomiting, No Diarrhea Genitourinary Symptoms: No Dysuria, No Hematuria, No Flank Pain Musculoskeletal: No Back Pain, No Neck Pain Skin: No Rash Neurological: Dizziness, Headache, No Focal Weakness, No Paralysis, No Parasthesia, No Sensory Changes Psychological: Anxiety, No Alcohol Abuse, No Drug Abuse, No Suicidal Ideations, No Homicidal Ideations, No Emotional Lability, No Hallucinations Endocrine: No Polyuria Hematologic/Lymphatic: No Easy Bleeding, No Easy Bruising All Other Systems: Reviewed and Negative - Past Medical History Pertinent Past Medical History: Yes Neurological History: No Pertinent History ENT History: No Pertinent History Cardiac History: Arrhythmia, Other Respiratory History: No Pertinent History Endocrine Medical History: No Pertinent History Musculoskeletal History: No Pertinent History GI Medical History: No Pertinent History History: No Pertinent History Psycho-Social History: No Pertinent History Female Reproductive Disorders: No Pertinent History Other Medical History: kidney stones; a-fib - Past Surgical History Past Surgical History: Yes Neuro Surgical History: No Pertinent History Cardiac: No Pertinent History Respiratory: No Pertinent History Gastrointestinal: Appendectomy Genitourinary: No Pertinent History Musculoskeletal: No Pertinent History Female Surgical History: Dilation & Curettage, Section, Tubal Ligation Other Surgical History: D&C, states ultrasound and stress showed irreg. heartbeat and chest pain in past few months, child adolescent care unable to find irre gular heartbeat. tubal 12/03/15 - Social History Smoking Status: Former smoker How long have you smoked: 12 Exposure to second hand smoke: Yes Drug Use: none Patient Lives Alone: No Significant Family History: no pertinent family hx - Female History Hx Now: No (tubal) - Nursing Vital Signs Nursing Vital Signs: Initial Vital Signs Temperature 97.6 F 03/16/20 15:31 Pulse Rate 89 03/16/20 15:31 Blood Pressure 127/73 03/16/20 15:31 O2 Sat by Pulse Oximetry 98 03/16/20 15:31 Pain Scale Pain Intensity 0 - Physical Exam General Appearance: no apparent distress, alert Eye Exam: PERRL/EOMI, eyes nml inspection, No scleral icterus Ears, Nose, Throat Exam: normal ENT inspection, No pharyngeal erythema, No tonsillar exudate Neck Exam: normal inspection, supple, No Kernig's, No lymphadenopathy (R), No lymphadenopathy (L) Respiratory Exam: normal breath sounds, airway intact, No respiratory distress, No diminished breath sounds, No prolonged expirations, No crackles/rales, No rhonchi, No wheezing Cardiovascular/Chest Exam: normal heart sounds, regular rate/rhythm Abdominal/Gastrointestinal Exam: soft, No tenderness, No distention, No mass Extremity Exam: non-tender, normal range of motion, normal inspection, no calf tenderness, no pedal edema Neurologic Exam: alert, oriented x 3, cooperative, environmental health 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 II-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 nml as tested, normal mood/affect, nml cerebellar function, sensation nml, No motor deficits Skin Exam: normal color, warm, No dry, No jaundice, No cyanosis, No jaundice SpO2 Interpretation: normal SpO2: 99 O2 Delivery: Room Air - Course EKG Interpreted by Me: RATE (79), Sinus Rhythm, LAFB, NORMAL INTERVALS, NORMAL QRS, Right Bundle Branch Block (Incomplete), NORMAL ST-T, Other (low voltage; negative previous EKG for comparison) - Radiology Exams Chest X-ray Interpretation: Interpreted by me, Reviewed by me, Negative, No Fracture, No Pneumonia, No Pneumothorax, Nml Alignment, No Infiltrates, Nml Mediastinum, Nml Soft Tissues - CT Exams Head CT Interpretation: Negative, No Fracture, No/Intracranial Hemorrhag Ordered Tests: Active Orders 24 hr Category Date Time Status Deputy Editor In Chief STAT Care 03/16/20 16:00 Active Clean Catch Urine Specimen STAT Care 03/16/20 15:59 Active EKG-ER Only STAT Care 03/16/20 15:59 Active IV Insertion STAT Care 03/16/20 15:59 Active CHEST 1 VIEW (PORTABLE) Stat Exams 03/16/20 15:59 Taken HEAD WITHOUT CONTRAST [CT] Stat Exams 03/16/20 16:00 Taken CBC W DIFF Stat Lab 03/16/20 15:59 Completed CMP Stat Lab 03/16/20 16:00 Completed D-DIMER QUANTITATIVE Stat Lab 03/16/20 16:00 Completed HCG,QUALITATIVE URINE Stat Lab 03/16/20 15:59 Completed Lactic Acid Stat Lab 03/16/20 16:05 Completed MAGNESIUM Stat Lab 03/16/20 16:00 Completed NT PRO BNP Stat Lab 03/16/20 16:00 Completed TROPONIN Q3H Lab 03/16/20 16:00 Completed TROPONIN Q3H Lab 03/16/20 19:00 Ordered TROPONIN Q3H Lab 03/16/20 22:00 Ordered TROPONIN Q3H Lab 03/17/20 01:00 Ordered TROPONIN Q3H Lab 03/17/20 04:00 Ordered UA W/RFX UR CULTURE Stat Lab 03/16/20 15:59 Completed Urine Triage Profile Stat Lab 03/16/20 17:00 Completed VENOUS BLOOD GAS Stat Lab 03/16/20 16:05 Completed Medication Summary Discontinued Medications Generic Name Dose Route Start Last Admin Trade Name Freq PRN Reason Stop Dose Admin Sodium Chloride 1,000 mls @ 999 mls/hr 03/16/20 15:59 03/16/20 18:16 Sodium Chloride 0.9% 1000 Ml IV 03/16/20 16:59 Infused .Q1H1M STA Infusion Sodium Chloride Confirm 03/16/20 16:11 Sodium Chloride 0.9% 1000 Ml Administered 03/16/20 16:12 Dose 1,000 mls @ ud .ROUTE .STK-MED ONE Lab/Rad Data: Laboratory Result Diagrams 03/16/20 15:59 03/16/20 16:00 Laboratory Results 03/16/20 03/16/20 03/16/20 Range/Units 17:00 16:05 16:05 WBC (4.0-10.5) K/mm3 RBC (4.1-5.4) M/mm3 Hgb (12.0-16.0) gm/dl Hct (35-47) % MCV (78-100) fl MCH (26-32) pg MCHC (32-36) g/dl RDW (11.5-14.0) % Plt Count (150-450) K/mm3 MPV (7.5-11.0) fl Gran % (36.0-66.0) % Eos # (Auto) (0-0.5) Absolute Lymphs (auto) (1.0-4.6) Absolute Monos (auto) (0.0-1.3) Lymphocytes % (24.0-44.0) % Monocytes % (0.0-12.0) % Eosinophils % (0.00-5.0) % Basophils % (0.0-0.4) % Absolute Granulocytes (1.4-6.9) Basophils # (0-0.4) D-Dimer (215-500) ng/mL pO2/FiO2 Ratio 21.0 % VBG pH 7.52 H (7.32-7.42) VBG pCO2 at Pat Temp 28 L (42-55) mm/Hg VBG pO2 at Pat Temp 53 H (25-40) mm/Hg VBG HCO3 22.9 (22-28) meq/L VBG O2 Sat (Robert) 90.7 L (95-100) VBG Base Excess 1.1 (-2.0-2.0) VBG Hemoglobin 12.9 VBG Carboxyhemoglobin 2.8 (0.0-6.9) % T HGB POC Potassium 3.8 (3.5-5.1) Sodium (137-145) mmol/L Potassium (3.5-5.1) mmol/L Chloride (98-107) mmol/L Carbon Dioxide (22-30) mmol/L Anion Gap (5-15) MEQ/L BUN (7-17) mg/dL Creatinine (0.52-1.04) mg/dL Estimated GFR ML/MIN Glucose (74-106) mg/dL Lactic Acid 1.8 (0.4-2.0) Calcium (8.4-10.2) mg/dL Magnesium (1.6-2.3) mg/dL Total Bilirubin (0.2-1.3) mg/dL AST (14-36) U/L ALT (0-35) U/L Alkaline Phosphatase (38-126) U/L Troponin I (0.000-0.034) ng/mL NT-Pro-B Natriuret Pep (0-450) pg/mL Serum Total Protein (6.3-8.2) g/dL Albumin (3.5-5.0) g/dL Urine Color (YELLOW) Urine Appearance (CLEAR) Urine pH (5-6) Ur Specific [place] (1.005-1.025) Urine Protein (Negative) Urine Ketones (NEGATIVE) Urine Blood (0-5) Thang/ul Urine Nitrite (NEGATIVE) Urine Bilirubin (NEGATIVE) Urine Urobilinogen (0-1) mg/dL Ur Leukocyte Esterase (NEGATIVE) Urine WBC (Auto) (0-5) /HPF Urine RBC (Auto) (0-2) /HPF U Epithel Cells (Auto) (FEW) /HPF Urine Bacteria (Auto) (NEGATIVE) /HPF Urine Mucus (Auto) (NEGATIVE) /HPF Urine Culture Reflexed (NO) Urine Glucose (NEGATIVE) mg/dL Urine HCG, Qual (Negative) Urine Opiates Level NEGATIVE (NEGATIVE) Ur Methadone NEGATIVE (NEGATIVE) Urine Barbiturates NEGATIVE (NEGATIVE) Ur Phencyclidine (PCP) NEGATIVE (NEGATIVE) Urine Amphetamine NEGATIVE (NEGATIVE) U Benzodiazepine Level NEGATIVE (NEGATIVE) Urine Cocaine NEGATIVE (NEGATIVE) Urine Marijuana (THC) NEGATIVE (NEGATIVE) 03/16/20 03/16/20 03/16/20 Range/Units 16:00 16:00 16:00 WBC (4.0-10.5) K/mm3 RBC (4.1-5.4) M/mm3 Hgb (12.0-16.0) gm/dl Hct (35-47) % MCV (78-100) fl MCH (26-32) pg MCHC (32-36) g/dl RDW (11.5-14.0) % Plt Count (150-450) K/mm3 MPV (7.5-11.0) fl Gran % (36.0-66.0) % Eos # (Auto) (0-0.5) Absolute Lymphs (auto) (1.0-4.6) Absolute Monos (auto) (0.0-1.3) Lymphocytes % (24.0-44.0) % Monocytes % (0.0-12.0) % Eosinophils % (0.00-5.0) % Basophils % (0.0-0.4) % Absolute Granulocytes (1.4-6.9) Basophils # (0-0.4) D-Dimer 313 (215-500) ng/mL pO2/FiO2 Ratio % VBG pH (7.32-7.42) VBG pCO2 at Pat Temp (42-55) mm/Hg VBG pO2 at Pat Temp (25-40) mm/Hg VBG HCO3 (22-28) meq/L VBG O2 Sat (Robert) (95-100) VBG Base Excess (-2.0-2.0) VBG Hemoglobin VBG Carboxyhemoglobin (0.0-6.9) % T HGB POC Potassium (3.5-5.1) Sodium 137 (137-145) mmol/L Potassium 3.6 (3.5-5.1) mmol/L Chloride 108 H (98-107) mmol/L Carbon Dioxide 19 L (22-30) mmol/L Anion Gap 13.3 (5-15) MEQ/L BUN 9 (7-17) mg/dL Creatinine 0.57 (0.52-1.04) mg/dL Estimated GFR > 60.0 ML/MIN Glucose 111 H (74-106) mg/dL Lactic Acid (0.4-2.0) Calcium 9.9 (8.4-10.2) mg/dL Magnesium 2.1 (1.6-2.3) mg/dL Total Bilirubin 0.40 (0.2-1.3) mg/dL AST 26 (14-36) U/L ALT 21 (0-35) U/L Alkaline Phosphatase 64 (38-126) U/L Troponin I < 0.012 (0.000-0.034) ng/mL NT-Pro-B Natriuret Pep 20.4 (0-450) pg/mL Serum Total Protein 8.1 (6.3-8.2) g/dL Albumin 4.5 (3.5-5.0) g/dL Urine Color (YELLOW) Urine Appearance (CLEAR) Urine pH (5-6) Ur Specific [place] (1.005-1.025) Urine Protein (Negative) Urine Ketones (NEGATIVE) Urine Blood (0-5) Thang/ul Urine Nitrite (NEGATIVE) Urine Bilirubin (NEGATIVE) Urine Urobilinogen (0-1) mg/dL Ur Leukocyte Esterase (NEGATIVE) Urine WBC (Auto) (0-5) /HPF Urine RBC (Auto) (0-2) /HPF U Epithel Cells (Auto) (FEW) /HPF Urine Bacteria (Auto) (NEGATIVE) /HPF Urine Mucus (Auto) (NEGATIVE) /HPF Urine Culture Reflexed (NO) Urine Glucose (NEGATIVE) mg/dL Urine HCG, Qual (Negative) Urine Opiates Level (NEGATIVE) Ur Methadone (NEGATIVE) Urine Barbiturates (NEGATIVE) Ur Phencyclidine (PCP) (NEGATIVE) Urine Amphetamine (NEGATIVE) U Benzodiazepine Level (NEGATIVE) Urine Cocaine (NEGATIVE) Urine Marijuana (THC) (NEGATIVE) 03/16/20 03/16/20 03/16/20 Range/Units 15:59 15:59 15:59 WBC 6.6 (4.0-10.5) K/mm3 RBC 4.61 (4.1-5.4) M/mm3 Hgb 12.1 (12.0-16.0) gm/dl Hct 38.6 (35-47) % MCV 83.7 (78-100) fl MCH 26.2 (26-32) pg MCHC 31.3 L (32-36) g/dl RDW 16.0 H (11.5-14.0) % Plt Count 300 (150-450) K/mm3 MPV 10.4 (7.5-11.0) fl Gran % 57.9 (36.0-66.0) % Eos # (Auto) 0.06 (0-0.5) Absolute Lymphs (auto) 2.28 (1.0-4.6) Absolute Monos (auto) 0.43 (0.0-1.3) Lymphocytes % 34.4 (24.0-44.0) % Monocytes % 6.5 (0.0-12.0) % Eosinophils % 0.9 (0.00-5.0) % Basophils % 0.3 (0.0-0.4) % Absolute Granulocytes 3.83 (1.4-6.9) Basophils # 0.02 (0-0.4) D-Dimer (215-500) ng/mL pO2/FiO2 Ratio % VBG pH (7.32-7.42) VBG pCO2 at Pat Temp (42-55) mm/Hg VBG pO2 at Pat Temp (25-40) mm/Hg VBG HCO3 (22-28) meq/L VBG O2 Sat (Robert) (95-100) VBG Base Excess (-2.0-2.0) VBG Hemoglobin VBG Carboxyhemoglobin (0.0-6.9) % T HGB POC Potassium (3.5-5.1) Sodium (137-145) mmol/L Potassium (3.5-5.1) mmol/L Chloride (98-107) mmol/L Carbon Dioxide (22-30) mmol/L Anion Gap (5-15) MEQ/L BUN (7-17) mg/dL Creatinine (0.52-1.04) mg/dL Estimated GFR ML/MIN Glucose (74-106) mg/dL Lactic Acid (0.4-2.0) Calcium (8.4-10.2) mg/dL Magnesium (1.6-2.3) mg/dL Total Bilirubin (0.2-1.3) mg/dL AST (14-36) U/L ALT (0-35) U/L Alkaline Phosphatase (38-126) U/L Troponin I (0.000-0.034) ng/mL NT-Pro-B Natriuret Pep (0-450) pg/mL Serum Total Protein (6.3-8.2) g/dL Albumin (3.5-5.0) g/dL Urine Color YELLOW (YELLOW) Urine Appearance CLOUDY (CLEAR) Urine pH 8.0 (5-6) Ur Specific [place] 1.011 (1.005-1.025) Urine Protein NEGATIVE (Negative) Urine Ketones NEGATIVE (NEGATIVE) Urine Blood NEGATIVE (0-5) Thang/ul Urine Nitrite NEGATIVE (NEGATIVE) Urine Bilirubin NEGATIVE (NEGATIVE) Urine Urobilinogen NEGATIVE (0-1) mg/dL Ur Leukocyte Esterase NEGATIVE (NEGATIVE) Urine WBC (Auto) 3-5 (0-5) /HPF Urine RBC (Auto) NONE (0-2) /HPF U Epithel Cells (Auto) MANY (FEW) /HPF Urine Bacteria (Auto) FEW (NEGATIVE) /HPF Urine Mucus (Auto) SLIGHT (NEGATIVE) /HPF Urine Culture Reflexed NO (NO) Urine Glucose NEGATIVE (NEGATIVE) mg/dL Urine HCG, Qual NEGATIVE (Negative) Urine Opiates Level (NEGATIVE) Ur Methadone (NEGATIVE) Urine Barbiturates (NEGATIVE) Ur Phencyclidine (PCP) (NEGATIVE) Urine Amphetamine (NEGATIVE) U Benzodiazepine Level (NEGATIVE) Urine Cocaine (NEGATIVE) Urine Marijuana (THC) (NEGATIVE) - Progress Progress: re-examined, unchanged Air Movement: good Progress Note: 03/16/20 18:20 Patient has maintained sinus rhythm throughout her time in the 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 03/16/20 18:32 Patient came in with nonspecific symptoms over the past 3 days of dyspnea and dizziness, but had no abnormalities on her initial physical exam and was at low risk for having a pulmonary embolus causing her symptoms as she had a negative range D-dimer and a PERC score for PE of zero. Patient had a HEART score of 1 with a negative troponin, putting her very low risk of any MACE causing her symptoms today. Patient states that she thought she may have an allergy to her lorazepam, but there was no benzodiazepines on her urinary toxicology screen ingris n though she states she took the medication prior to coming into the emergency department and has not stopped taking it over the past 2 weeks. I did not see any signs of allergic reactions of any type and patient did not have any signs of anaphylaxis on her examination. Patient had a negative CT scan and chest x- ray per my interpretations and we will notify her if the radiologist is any different from my interpretation. At this time, patient to follow-up with her primary care provider discussed further testing as an outpatient such as a tilt table test, MRI of the brain, 2D echo, stress test or any other testing deemed necessary, but she did not require inpatient admission to get any immediate testing at this time due to her presentation, risk factors and today's evaluation the emergency department. I reviewed with patient in detail what signs and symptoms to return back to the emergency department Blood Culture(s) Obtained: No Antibiotics given: No Counseled pt/family regarding: lab results, diagnosis, need for follow-up, rad results - Departure Departure Disposition: Home Clinical Impression: Dizziness, nonspecific, Elevated blood pressure reading without diagnosis of hypertension Dyspnea Qualifiers: Dyspnea type: unspecified Qualified Code(s): R06.00 - Dyspnea, unspecified Condition: Good Critical Care Time: No Referrals: ERNESTO CRUMP [Primary Care Provider] - 03/17/20 Instructions: Shortness of Breath (Dyspnea) (DC), Dizziness, Nonvertigo, (DC), Adverse Drug Reactions, Adult (DC) Additional Instructions: Your CT of your head, chest x-ray, lab work and urine were all negative for any specific etiology explain your symptoms today. Follow-up with your primary care provider to discuss further evaluation of your symptoms. Return immediately back to emergency room if you have any worsening shortness of breath, new fever, new cough, new abdominal pain, worse dizziness, new back pain, new abdominal pain, any urinary symptoms, new diarrhea, new blood in your stool, any blood in urine, or any nausea and vomiting that occurs or any other concerning signs or symptoms that were not present at today's emergency room visit for immediate reevaluation in the emergency department
[2020-03-16 16:29] LABS: ALBUMIN 4.5 g/dL (3.5-5.0); ALKALINE PHOSPHATASE 64 U/L (38-126); ANION GAP 13.3 MEQ/L (5-15); BLOOD UREA NITROGEN 9 mg/dL (7-17); CHLORIDE 108 mmol/L (98-107); Calcium 9.9 mg/dL (8.4-10.2); Carbon Dioxide 19 mmol/L (22-30); Creatinine 1 0.57 mg/dL (0.52-1.04); EST GLOMERULAR FILTRATION RATE > 60.0 ML/MIN; Glucose 111 mg/dL (74-106); MAGNESIUM 2.1 mg/dL (1.6-2.3); NT PRO BNP 20.4 pg/mL (0-450); Potassium 3.6 mmol/L (3.5-5.1); SGOT/AST 26 U/L (14-36); SGPT/ALT 21 U/L (0-35); SODIUM 137 mmol/L (137-145); Total Protein 8.1 g/dL (6.3-8.2)
[2020-03-16 17:08] VITALS: BP 134/76
[2020-03-16 17:46] LABS: Appearance CLOUDY (CLEAR); Bacteria FEW /HPF (NEGATIVE); Bilirubin NEGATIVE (NEGATIVE); Blood NEGATIVE Ery/ul (0-5); Epithelial Cells MANY /HPF (FEW); Glucose NEGATIVE (NEGATIVE); Ketones NEGATIVE (NEGATIVE); Leukocyte Esterase NEGATIVE (NEGATIVE); Mucus SLIGHT /HPF (NEGATIVE); Nitrite NEGATIVE (NEGATIVE); Protein,Urine Dip NEGATIVE (Negative); Specific Gravity 1.011 (1.005-1.025); Urobilinogen NEGATIVE mg/dL (0-1)
[2020-03-16 18:11] LABS: Amphetamine,Urine NEGATIVE (NEGATIVE); Barbiturate,Urine NEGATIVE (NEGATIVE); Benzodiazepine,Urine NEGATIVE (NEGATIVE); Cocaine,Urine NEGATIVE (NEGATIVE); Methadone,Urine NEGATIVE (NEGATIVE); Opiate,Urine NEGATIVE (NEGATIVE); PCP,Urine NEGATIVE (NEGATIVE); THC,Urine NEGATIVE (NEGATIVE)
[2020-03-16 18:23] VITALS: O2SAT 99
[2020-03-16 18:34] VITALS: PULSE 73
--- NOTE | 2020-03-17 08:40 | XRAY ---
Indication: Eye pain, dizziness, short of breath. Multiple contiguous axial images obtained through the head without contrast. Comparison: September 19, 2019. Again normal appearing brain parenchyma, ventricles, and bony calvarium. Visualized paranasal sinuses and mastoid air cells are clear. Orbits are bilaterally symmetric. Impression: Continued normal CT head without contrast exam.
--- NOTE | 2020-03-17 08:44 | XRAY ---
Indication: Dyspnea. Comparison: November 28, 2019. Portable chest demonstrates minimal lingula subsegmental atelectasis/scarring. Remaining heart, lungs, and bony thorax normal.
== END 2020-03-16 18:41 | disposition home or self-care (01) ==
LOC: ED 15:29
DX: R42 Dizziness and giddiness (principal); R03.0 Elevated blood-pressure reading, without diagnosis of hypertension; R06.00 Dyspnea, unspecified; F41.9 Anxiety disorder, unspecified; Z87.891 Personal history of nicotine dependence; Z87.898 Personal history of other specified conditions
CPT/HCPCS: 36000; 36415; 70450; 71045; 80053; 80307; 81001; 82805; 83605; 83735; 83880; 84484; 84703; 85025; 85379; 93005; 93041; 96360; 99284

== ENCOUNTER 2020-03-21 19:44 | Emergency (ER) | payer SELFPAY ==
[2020-03-21] MEDS ORDERED: KLONOPIN PO STA (20:05)
--- NOTE | 2020-03-21 20:10 | ERPHSYRPT ---
- History of Present Illness Time Seen by Provider: 03/21/20 20:00 Source: patient Exam Limitations: no limitations Patient Subjective Stated Complaint: pt states "I'm having another panic attack." Triage Nursing Assessment: pt ambulated into the er; pt is axo x4; c/o panic attack; pt is anxious and tearful; denies pain; lung sound clear in all lobes; clear heart tones; tachycardic Physician History: 34 years old female with history of PTSD, poorly controlled panic attacks, multiple visits in the ER for similar symptoms presented with sudden onset feeling shaky, difficulty breathing/choking sensation, feeling anxious, restless not able to find a comfortable position with generalized weakness while she was sitting on a couch watching TV almost 15 minutes prior to arrival. It started to improve on its own presentation in the ER. On my interview patient is tearful saying "I do not think anything is working". She has been taking Ativan but it gives her a weird feeling on her lips and tongue and stopped taking 4 days ago. Denies any suicidal or homicidal ideations. Currently patient is improving back to her baseline. Patient states "I need some help to deal with the symptoms until I can see my psychiatrist." Denies any chest pain palpitations or shortness of breath at present. Timing/Duration: today, sudden, improved Severity: moderate Modifying Factors: Improves With: rest Associated Symptoms: shortness of breath, No chest pain Allergies/Adverse Reactions: hydromorphone HCl [From Dilaudid] Allergy (Severe, Verified 02/28/20 20:34) Anaphylactic Reaction azithromycin [From Zithromax] Allergy (Intermediate, Verified 02/28/20 20:34) Hives erythromycin base [Erythromycin Base] Allergy (Mild, Verified 02/28/20 20:34) Tightness of Throat diphenhydramine [From Benadryl] Adverse Reaction (Intermediate, Verified 03/16/20 15:41) Vomiting lorazepam [From Ativan] Adverse Reaction (Verified 03/21/20 19:51) Swelling of Tongue and Lips morphine Adverse Reaction (Verified 02/28/20 20:34) Hives Hx Tetanus, Diphtheria Vaccination/Date Given: Yes Hx Influenza Vaccination/Date Given: No Hx Pneumococcal Vaccination/Date Given: No Travel Risk - International Travel Have you traveled outside of the country in past 3 weeks: No - Coronavirus Screening Are you exhibiting any of the following symptoms?: No Close contact with a COVID-19 positive Pt in past 14-21 Days: No - Review of Systems Constitutional: No Symptoms Eyes: No Symptoms Ears, Nose, & Throat: No Symptoms Respiratory: Dyspnea Cardiac: No Symptoms Abdominal/Gastrointestinal: No Symptoms Genitourinary Symptoms: No Symptoms Musculoskeletal: No Symptoms Skin: No Symptoms Neurological: No Symptoms Psychological: Anxiety, Emotional Lability, No Suicidal Ideations, No Homicidal Ideations Endocrine: No Symptoms Hematologic/Lymphatic: No Symptoms Immunological/Allergic: No Symptoms - Past Medical History Pertinent Past Medical History: Yes Neurological History: No Pertinent History ENT History: No Pertinent History Cardiac History: Arrhythmia, Other Respiratory History: No Pertinent History Endocrine Medical History: No Pertinent History Musculoskeletal History: No Pertinent History GI Medical History: No Pertinent History History: No Pertinent History Psycho-Social History: No Pertinent History Female Reproductive Disorders: No Pertinent History Other Medical History: kidney stones; a-fib - Past Surgical History Past Surgical History: Yes Neuro Surgical History: No Pertinent History Cardiac: No Pertinent History Respiratory: No Pertinent History Gastrointestinal: Appendectomy Genitourinary: No Pertinent History Musculoskeletal: No Pertinent History Female Surgical History: Dilation & Curettage, Section, Tubal Ligation Other Surgical History: D&C, states ultrasound and stress showed irreg. 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 tubal 12/03/15 - Social History Smoking Status: Former smoker How long have you smoked: 12 Exposure to second hand smoke: Yes Drug Use: none Patient Lives Alone: No Significant Family History: no pertinent family hx - Female History Hx Now: No - Nursing Vital Signs Nursing Vital Signs: Initial Vital Signs Temperature 98.3 F 03/21/20 19:52 Pulse Rate 103 H 03/21/20 19:52 Respiratory Rate 22 03/21/20 19:52 Blood Pressure 141/88 03/21/20 19:52 O2 Sat by Pulse Oximetry 99 03/21/20 19:52 Pain Scale Pain Intensity 0 - Physical Exam General Appearance: no apparent distress, alert, anxiety Eye Exam: PERRL/EOMI, eyes nml inspection Ears, Nose, Throat Exam: normal ENT inspection, pharynx normal Neck Exam: normal inspection, non-tender, supple, full range of motion Respiratory Exam: normal breath sounds, lungs clear Cardiovascular Exam: regular rate/rhythm, normal heart sounds Gastrointestinal/Abdomen Exam: soft, normal bowel sounds, No tenderness Back Exam: normal inspection Extremity Exam: normal inspection, normal range of motion Neurologic Exam: alert, oriented x 3, cooperative, 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 She had a work-up done multiple times in the past and also last week which was grossly negative. Patient wants some anxiolytic and is given Klonopin here, on reevaluation feeling better. He does not have any chest pain palpitations or shortness of breath and here. Patient showed me the bottle of her Ativan and has normal pill count as she told me. With her symptoms improving with Klonopin I would give her 3 doses of Klonopin to go home until she can be evaluated by her psychiatrist. I think this is of panic attack and has similar symptoms before. I agree with her that she probably does not need any work-up and is stable for discharge. She is not suicidal or homicidal at all. Discussed signs symptoms of worsening needing return to ER which she seems understanding. Counseled pt/family regarding: diagnosis, need for follow-up - Departure Departure Disposition: Home Clinical Impression: Panic attack Condition: Stable Critical Care Time: No Referrals: ERNESTO CRUMP [Primary Care Provider] - (2 days for re evaluation) Instructions: Anxiety, Adult (DC) Additional Instructions: Follow-up with your primary care and psychiatrist for reevaluation on Monday. Do not take Ativan with Klonopin at all. Return to ER for any worsening anxiety symptoms or if you have thoughts of hurting yourself or someone else. Prescriptions: Clonazepam 0.5 mg [Klonopin 0.5 MG] 0.5 mg PO BID 2 Days #3 tab
[2020-03-21 22:24] VITALS: BP 133/84; PULSE 82
[2020-03-21 22:43] VITALS: O2SAT 99
== END 2020-03-21 22:24 | disposition home or self-care (01) ==
LOC: ED 19:44
DX: F41.0 Panic disorder [episodic paroxysmal anxiety] (principal); F43.12 Post-traumatic stress disorder, chronic
CPT/HCPCS: 99283

== ENCOUNTER 2020-03-30 14:28 | Emergency (ER) | payer SELFPAY ==
--- NOTE | 2020-03-30 14:44 | ERPHSYRPT ---
- History of Present Illness Time Seen by Provider: 03/30/20 14:44 Source: patient Exam Limitations: no limitations Physician History: This is a 34-year-old overweight white female who was exposed to positive COVID- 19 spouse 4 months ago and her test was negative. 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 Prox imally 1 week ago she has complaints of loss of taste and sense of smell as well as headache abdominal cramping with diarrhea. Patient states that last week she is lost 10 pounds. She has not been vomiting. She does not have chest pain or shortness of breath. Patient is convinced she is COVID-19 positive. Timing/Duration: week(s) Quality: aching Head Pain Location: frontal Severity of Pain-Max: moderate Severity of Pain-Current: none Recent Head Trauma: occasional headaches Associated Symptoms: other (Headache and diarrhea), No nausea/vomiting Previous symptoms: no prior history Allergies/Adverse Reactions: hydromorphone HCl [From Dilaudid] Allergy (Severe, Verified 03/30/20 14:58) Anaphylactic Reaction azithromycin [From Zithromax] Allergy (Intermediate, Verified 03/30/20 14:58) Hives erythromycin base [Erythromycin Base] Allergy (Mild, Verified 03/30/20 14:58) Tightness of Throat diphenhydramine [From Benadryl] Adverse Reaction (Intermediate, Verified 03/30/20 14:58) Vomiting lorazepam [From Ativan] Adverse Reaction (Verified 03/30/20 14:58) Swelling of Tongue and Lips morphine Adverse Reaction (Verified 03/30/20 14:58) Hives Hx Tetanus, Diphtheria Vaccination/Date Given: Yes Hx Influenza Vaccination/Date Given: No Hx Pneumococcal Vaccination/Date Given: No Travel Risk - International Travel Have you traveled outside of the country in past 3 weeks: No - Coronavirus Screening Are you exhibiting any of the following symptoms?: Yes Symptoms: Vomiting/Diarrhea, Loss of Taste or Smell, Headaches/Body Aches/Fatigue Close contact with a COVID-19 positive Pt in past 14-21 Days: Yes - Review of Systems Constitutional: No Symptoms Eyes: No Symptoms Ears, Nose, & Throat: No Symptoms Respiratory: No Symptoms Cardiac: No Symptoms Abdominal/Gastrointestinal: Abdominal Pain, Diarrhea Genitourinary Symptoms: No Symptoms Musculoskeletal: No Symptoms Skin: No Symptoms Neurological: Headache Psychological: No Symptoms Endocrine: No Symptoms Hematologic/Lymphatic: No Symptoms Immunological/Allergic: No Symptoms All Other Systems: Reviewed and Negative - Past Medical History Pertinent Past Medical History: Yes Neurological History: No Pertinent History ENT History: No Pertinent History Cardiac History: Arrhythmia, Other Respiratory History: No Pertinent History Endocrine Medical History: No Pertinent History Musculoskeletal History: No Pertinent History GI Medical History: No Pertinent History History: No Pertinent History Psycho-Social History: No Pertinent History Female Reproductive Disorders: No Pertinent History Other Medical History: kidney stones; a-fib - Past Surgical History Past Surgical History: Yes Neuro Surgical History: No Pertinent History Cardiac: No Pertinent History Respiratory: No Pertinent History Gastrointestinal: Appendectomy Genitourinary: No Pertinent History Musculoskeletal: No Pertinent History Female Surgical History: Dilation & Curettage, Section, Tubal Ligation Other Surgical History: D&C, states ultrasound and stress showed irreg. 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 tubal 12/03/15 - Social History Smoking Status: Former smoker How long have you smoked: 12 Exposure to second hand smoke: Yes Drug Use: none Patient Lives Alone: No Significant Family History: no pertinent family hx - Nursing Vital Signs Nursing Vital Signs: Initial Vital Signs Temperature 98.9 F 03/30/20 14:42 Pulse Rate 103 H 03/30/20 14:42 Respiratory Rate 18 03/30/20 14:42 Blood Pressure 120/85 03/30/20 14:42 O2 Sat by Pulse Oximetry 98 03/30/20 14:42 Pain Scale Pain Intensity 8 - Physical Exam General Appearance: no apparent distress Eye Exam: PERRL/EOMI, eyes nml inspection Ears, Nose, Throat Exam: normal ENT inspection, moist mucous membranes Neck Exam: normal inspection, non-tender, supple, full range of motion Respiratory Exam: normal breath sounds, lungs clear, airway intact, No chest tenderness, No respiratory distress Cardiovascular Exam: regular rate/rhythm, normal heart sounds, normal peripheral pulses Gastrointestinal/Abdominal Exam: soft, normal bowel sounds, No tenderness Back Exam: normal inspection, normal range of motion, No CVA tenderness, No vertebral tenderness Extremity Exam: normal inspection, normal range of motion, pelvis stable Mental 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, oriented x 3, 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 Exam: normal hearing, normal speech, PERRL Coordination/Gait Exam: normal finger to nose, normal gait, normal cerebellar function Motor/Sensory Exam: no motor deficit, no sensory deficit Skin Exam: normal color, warm, dry Lymphatic Exam: No adenopathy SpO2 Interpretation: normal O2 Delivery: Room Air - Course Nursing assessment & vital signs reviewed: Yes EKG Interpreted by Me: RATE (97), Sinus Rhythm, NORMAL AXIS, LAFB, NORMAL INTERVALS, NORMAL QRS, Other (No change from comparison EKG dated 10/26/2019) Ordered Tests: Active Orders 24 hr Category Date Time Status Locker Room Supervisor STAT Care 03/30/20 14:46 Active EKG-ER Only STAT Care 03/30/20 14:44 Active IV Insertion STAT Care 03/30/20 14:44 Active Isolation, Initiate & Maintain STAT Care 03/30/20 14:45 Active CHEST 1 VIEW (PORTABLE) Stat Exams 03/30/20 14:47 Completed BLOOD CULTURE Stat Lab 03/30/20 16:30 Received CBC W DIFF Stat Lab 03/30/20 15:10 Completed CMP Stat Lab 03/30/20 15:00 Completed Ferritin Stat Lab 03/30/20 15:00 Completed LDH-LACTATE DEHYDROGENASE Stat Lab 03/30/20 15:00 Completed Lactic Acid Stat Lab 03/30/20 14:58 Completed TROPONIN Q3H Lab 03/30/20 15:00 Completed TROPONIN Q3H Lab 03/30/20 17:45 Ordered TROPONIN Q3H Lab 03/30/20 20:45 Ordered TROPONIN Q3H Lab 03/30/20 23:45 Ordered TROPONIN Q3H Lab 03/31/20 02:45 Ordered UA W/RFX UR CULTURE Stat Lab 03/30/20 14:58 Completed Medication Summary Generic Name Dose Route Start Last Admin Trade Name Freq PRN Reason Stop Dose Admin Sodium Chloride 1,000 mls @ 50 mls/hr 03/30/20 14:45 03/30/20 14:52 Sodium Chloride 0.9% 1000 Ml IV 04/29/20 14:44 50 mls/hr .Q20H TYSON Administration Lab/Rad Data: Laboratory Result Diagrams 03/30/20 15:10 03/30/20 15:00 Laboratory Results 03/30/20 03/30/20 03/30/20 Range/Units 15:10 15:00 15:00 WBC 7.6 (4.0-10.5) K/mm3 RBC 4.74 (4.1-5.4) M/mm3 Hgb 12.5 (12.0-16.0) gm/dl Hct 39.7 (35-47) % MCV 83.8 (78-100) fl MCH 26.4 (26-32) pg MCHC 31.5 L (32-36) g/dl RDW 16.0 H (11.5-14.0) % Plt Count 344 (150-450) K/mm3 MPV 10.0 (7.5-11.0) fl Gran % 64.0 (36.0-66.0) % Eos # (Auto) 0.04 (0-0.5) Absolute Lymphs (auto) 2.10 (1.0-4.6) Absolute Monos (auto) 0.56 (0.0-1.3) Lymphocytes % 27.8 (24.0-44.0) % Monocytes % 7.4 (0.0-12.0) % Eosinophils % 0.5 (0.00-5.0) % Basophils % 0.3 (0.0-0.4) % Absolute Granulocytes 4.84 (1.4-6.9) Basophils # 0.02 (0-0.4) Sodium (137-145) mmol/L Potassium (3.5-5.1) mmol/L Chloride (98-107) mmol/L Carbon Dioxide (22-30) mmol/L Anion Gap (5-15) MEQ/L BUN (7-17) mg/dL Creatinine (0.52-1.04) mg/dL Estimated GFR ML/MIN Glucose (74-106) mg/dL Lactic Acid (0.4-2.0) Calcium (8.4-10.2) mg/dL Ferritin (6.24-137) ng/mL Total Bilirubin (0.2-1.3) mg/dL AST (14-36) U/L ALT (0-35) U/L Alkaline Phosphatase (38-126) U/L Lactate Dehydrogenase (120-246) U/L Troponin I (0.000-0.034) ng/mL Serum Total Protein (6.3-8.2) g/dL Albumin (3.5-5.0) g/dL Urine Color (YELLOW) Urine Appearance (CLEAR) Urine pH (5-6) Ur Specific [place] (1.005-1.025) Urine Protein (Negative) Urine Ketones (NEGATIVE) Urine Blood (0-5) Thang/ul Urine Nitrite (NEGATIVE) Urine Bilirubin (NEGATIVE) Urine Urobilinogen (0-1) mg/dL Ur Leukocyte Esterase (NEGATIVE) Urine WBC (Auto) (0-5) /HPF Urine RBC (Auto) (0-2) /HPF U Epithel Cells (Auto) (FEW) /HPF Urine Bacteria (Auto) (NEGATIVE) /HPF Urine Mucus (Auto) (NEGATIVE) /HPF Urine Culture Reflexed (NO) Urine Glucose (NEGATIVE) mg/dL Influenza Type A Ag NEGATIVE (NEGATIVE) Influenza Type B Ag NEGATIVE (NEGATIVE) RSV (PCR) NEGATIVE (Negative) Group A Strep Antibody NOT DETECTED (NEGATIVE) 03/30/20 03/30/20 03/30/20 Range/Units 15:00 15:00 14:58 WBC (4.0-10.5) K/mm3 RBC (4.1-5.4) M/mm3 Hgb (12.0-16.0) gm/dl Hct (35-47) % MCV (78-100) fl MCH (26-32) pg MCHC (32-36) g/dl RDW (11.5-14.0) % Plt Count (150-450) K/mm3 MPV (7.5-11.0) fl Gran % (36.0-66.0) % Eos # (Auto) (0-0.5) Absolute Lymphs (auto) (1.0-4.6) Absolute Monos (auto) (0.0-1.3) Lymphocytes % (24.0-44.0) % Monocytes % (0.0-12.0) % Eosinophils % (0.00-5.0) % Basophils % (0.0-0.4) % Absolute Granulocytes (1.4-6.9) Basophils # (0-0.4) Sodium 138 (137-145) mmol/L Potassium 3.6 (3.5-5.1) mmol/L Chloride 108 H (98-107) mmol/L Carbon Dioxide 20 L (22-30) mmol/L Anion Gap 13.7 (5-15) MEQ/L BUN 10 (7-17) mg/dL Creatinine 0.56 (0.52-1.04) mg/dL Estimated GFR > 60.0 ML/MIN Glucose 120 H (74-106) mg/dL Lactic Acid (0.4-2.0) Calcium 9.9 (8.4-10.2) mg/dL Ferritin 11.5 (6.24-137) ng/mL Total Bilirubin 0.50 (0.2-1.3) mg/dL AST 24 (14-36) U/L ALT 19 (0-35) U/L Alkaline Phosphatase 65 (38-126) U/L Lactate Dehydrogenase 128 (120-246) U/L Troponin I < 0.012 (0.000-0.034) ng/mL Serum Total Protein 8.4 H (6.3-8.2) g/dL Albumin 4.6 (3.5-5.0) g/dL Urine Color YELLOW (YELLOW) Urine Appearance SLIGHTLY CLOUDY (CLEAR) Urine pH 7.0 (5-6) Ur Specific [place] 1.019 (1.005-1.025) Urine Protein NEGATIVE (Negative) Urine Ketones NEGATIVE (NEGATIVE) Urine Blood NEGATIVE (0-5) Thang/ul Urine Nitrite NEGATIVE (NEGATIVE) Urine Bilirubin NEGATIVE (NEGATIVE) Urine Urobilinogen 2 (0-1) mg/dL Ur Leukocyte Esterase NEGATIVE (NEGATIVE) Urine WBC (Auto) 3-5 (0-5) /HPF Urine RBC (Auto) 0-2 (0-2) /HPF U Epithel Cells (Auto) RARE (FEW) /HPF Urine Bacteria (Auto) NONE (NEGATIVE) /HPF Urine Mucus (Auto) SLIGHT (NEGATIVE) /HPF Urine Culture Reflexed NO (NO) Urine Glucose NEGATIVE (NEGATIVE) mg/dL Influenza Type A Ag (NEGATIVE) Influenza Type B Ag (NEGATIVE) RSV (PCR) (Negative) Group A Strep Antibody (NEGATIVE) 03/30/20 Range/Units 14:58 WBC (4.0-10.5) K/mm3 RBC (4.1-5.4) M/mm3 Hgb (12.0-16.0) gm/dl Hct (35-47) % MCV (78-100) fl MCH (26-32) pg MCHC (32-36) g/dl RDW (11.5-14.0) % Plt Count (150-450) K/mm3 MPV (7.5-11.0) fl Gran % (36.0-66.0) % Eos # (Auto) (0-0.5) Absolute Lymphs (auto) (1.0-4.6) Absolute Monos (auto) (0.0-1.3) Lymphocytes % (24.0-44.0) % Monocytes % (0.0-12.0) % Eosinophils % (0.00-5.0) % Basophils % (0.0-0.4) % Absolute Granulocytes (1.4-6.9) Basophils # (0-0.4) Sodium (137-145) mmol/L Potassium (3.5-5.1) mmol/L Chloride (98-107) mmol/L Carbon Dioxide (22-30) mmol/L Anion Gap (5-15) MEQ/L BUN (7-17) mg/dL Creatinine (0.52-1.04) mg/dL Estimated GFR ML/MIN Glucose (74-106) mg/dL Lactic Acid 1.5 (0.4-2.0) Calcium (8.4-10.2) mg/dL Ferritin (6.24-137) ng/mL Total Bilirubin (0.2-1.3) mg/dL AST (14-36) U/L ALT (0-35) U/L Alkaline Phosphatase (38-126) U/L Lactate Dehydrogenase (120-246) U/L Troponin I (0.000-0.034) ng/mL Serum Total Protein (6.3-8.2) g/dL Albumin (3.5-5.0) g/dL Urine Color (YELLOW) Urine Appearance (CLEAR) Urine pH (5-6) Ur Specific [place] (1.005-1.025) Urine Protein (Negative) Urine Ketones (NEGATIVE) Urine Blood (0-5) Thang/ul Urine Nitrite (NEGATIVE) Urine Bilirubin (NEGATIVE) Urine Urobilinogen (0-1) mg/dL Ur Leukocyte Esterase (NEGATIVE) Urine WBC (Auto) (0-5) /HPF Urine RBC (Auto) (0-2) /HPF U Epithel Cells (Auto) (FEW) /HPF Urine Bacteria (Auto) (NEGATIVE) /HPF Urine Mucus (Auto) (NEGATIVE) /HPF Urine Culture Reflexed (NO) Urine Glucose (NEGATIVE) mg/dL Influenza Type A Ag (NEGATIVE) Influenza Type B Ag (NEGATIVE) RSV (PCR) (Negative) Group A Strep Antibody (NEGATIVE) - Progress Progress: improved Air Movement: good Progress Note: 03/30/20 16:53 Chest x-ray reveals no evidence of any acute cardiopulmonary process 03/30/20 16:56 Patient states that she does not want any type of narcotic for pain control. They make her sick. Blood Culture(s) Obtained: Yes Antibiotics given: No Counseled pt/family regarding: lab results, diagnosis, need for follow-up, rad results - Departure Departure Disposition: Home Clinical Impression: Viral syndrome, Diarrhea Condition: Stable Critical Care Time: No Referrals: ERNESTO CRUMP [Primary Care Provider] - Additional Instructions: Drink plenty of fluids. You need to quarantine yourself until your COVID-19 test results return. Forms: Work/School Release Form
[2020-03-30] MEDS ORDERED: Sodium Chloride 0.9% 1000 ML 1,000 ML ONE (14:52)
[2020-03-30] MEDS: Sodium Chloride 0.9% 1000 ML 1,000 ML IV SCH (14:52)
--- NOTE | 2020-03-30 15:15 | XRAY ---
Indication: Suspect Covid 19. Comparison: March 16, 2020. Portable chest demonstrates normal heart, lungs, and bony thorax.
[2020-03-30 15:25] LABS: Absolute Neutrophil Ct (ANC) 4.84 (1.4-6.9); BASOPHIL % 0.3 % (0.0-0.4); Basophil (Absolute #) 0.02 (0-0.4); Eosinophil % 0.5 % (0.00-5.0); Eosinophil (Absolute #) 0.04 (0-0.5); Hematocrit 39.7 % (35-47); Hemoglobin 12.5 gm/dl (12.0-16.0); Lymphocytes % 27.8 % (24.0-44.0); Mean Cell Volume 83.8 fl (78-100); Mean Corpuscular Hemoglobin 26.4 pg (26-32); Mean Corpuscular Hgb Concent. 31.5 g/dl (32-36); Monocyte (Absolute #) 0.56 (0.0-1.3); Monocytes % 7.4 % (0.0-12.0); Platelet Count 344 K/mm3 (150-450); Red Blood Count 4.74 M/mm3 (4.1-5.4); White Blood Count 7.6 K/mm3 (4.0-10.5)
[2020-03-30 15:39] LABS: Appearance SLIGHTLY CLOUDY (CLEAR); Bilirubin NEGATIVE (NEGATIVE); Blood NEGATIVE Ery/ul (0-5); Epithelial Cells RARE /HPF (FEW); Glucose NEGATIVE (NEGATIVE); Ketones NEGATIVE (NEGATIVE); Leukocyte Esterase NEGATIVE (NEGATIVE); Mucus SLIGHT /HPF (NEGATIVE); Nitrite NEGATIVE (NEGATIVE); Protein,Urine Dip NEGATIVE (Negative); RBC 0-2 /HPF (0-2); Specific Gravity 1.019 (1.005-1.025); Urobilinogen 2 mg/dL (0-1)
[2020-03-30 16:04] VITALS: BP 114/68; PULSE 73; O2SAT 97
[2020-03-30 16:11] LABS: ALBUMIN 4.6 g/dL (3.5-5.0); ALKALINE PHOSPHATASE 65 U/L (38-126); ANION GAP 13.7 MEQ/L (5-15); BLOOD UREA NITROGEN 10 mg/dL (7-17); CHLORIDE 108 mmol/L (98-107); Calcium 9.9 mg/dL (8.4-10.2); Carbon Dioxide 20 mmol/L (22-30); Creatinine 1 0.56 mg/dL (0.52-1.04); EST GLOMERULAR FILTRATION RATE > 60.0 ML/MIN; Ferritin 11.5 ng/mL (6.24-137); Glucose 120 mg/dL (74-106); LDH-LACTATE DEHYDROGENASE 128 U/L (120-246); Potassium 3.6 mmol/L (3.5-5.1); SGOT/AST 24 U/L (14-36); SGPT/ALT 19 U/L (0-35); SODIUM 138 mmol/L (137-145); Total Protein 8.4 g/dL (6.3-8.2)
[2020-03-30 16:36] LABS: INFLUENZA A NEGATIVE (NEGATIVE); INFLUENZA B NEGATIVE (NEGATIVE); RESPIRATORY SYNCTIAL VIRUS NEGATIVE (Negative)
== END 2020-03-30 17:09 | disposition home or self-care (01) ==
LOC: ED 14:28
DX: B34.9 Viral infection, unspecified (principal); R19.7 Diarrhea, unspecified
CPT/HCPCS: 36000; 36415; 71045; 80053; 81001; 82728; 83605; 83615; 84484; 85025; 87040; 87631; 87651; 93005; 93041; 96360; 96361; 99284; U0003

== ENCOUNTER 2020-04-13 19:25 | Emergency (ER) | payer SELFPAY ==
--- NOTE | 2020-04-13 20:18 | ERPHSYRPT ---
- History of Present Illness Source: patient Patient Subjective Stated Complaint: Patient states " I was eating dinner and I just started having a panic attack that I could not control". Triage Nursing Assessment: Patient arrived to ER and ambulated to room without difficulty. Patient A/O times 4. Patient tearful upon entering room. Lungs clear bilateral A/P throughout. Patient denies SOB. Patient denies chest pain. No S/S of respiratory distress noted. Cap refill < 3seconds. No dependent edema noted. Patient stated she didn't have anything trigger her panic attack but that she has been having family problems for about a week. + pedal andf radial pulses noted. Hand stone polisher hand strong and equal. Bilateral pupils brisk and reactive to light. Patient able to follow directions without difficulty. + BS times 4 quads. ABD soft round non-distended. Patient denies pain or discomfort. Patient states fluid and food intake remains normal. Oral mucosa clean, pink, moist. Skin turgor < 3 seconds. No visual S/S of dehydration noted. Physician History: 34 yo wf w h/o panic attacks presents w panic atttack that has now resolved. Pt states that she go anxious/tachycardic. She denies chest pain/fever/dyspnea and states that this is how her panic attacks occur. Timing/Duration: sudden Severity of Symptoms-Max: moderate Severity of Symptoms-Current: none Context related to: other Suicidal thoughts: other (No suicidal ideation) Associated Symptoms: anxiety, No angry, No agitated, No confused, No depressed, No frustrated, No hostile, No hallucinating, No impaired concentration, No ingestion, No injury, No insomnia, No paranoid Previous symptoms: same symptoms as today Allergies/Adverse Reactions: hydromorphone HCl [From Dilaudid] Allergy (Severe, Verified 04/13/20 19:40) Anaphylactic Reaction azithromycin [From Zithromax] Allergy (Intermediate, Verified 04/13/20 19:40) Hives erythromycin base [Erythromycin Base] Allergy (Mild, Verified 04/13/20 19:40) Tightness of Throat clonazepam [From Klonopin] Allergy (Verified 04/13/20 19:41) Swelling clonidine Allergy (Verified 04/13/20 19:41) Hives diphenhydramine [From Benadryl] Adverse Reaction (Intermediate, Verified 04/13/20 19:40) Vomiting lorazepam [From Ativan] Adverse Reaction (Verified 04/13/20 19:40) Swelling of Tongue and Lips morphine Adverse Reaction (Verified 04/13/20 19:40) Hives Home Medications: No Reportable Medications [No Reported Medications] 04/13/20 [History] Hx Tetanus, Diphtheria Vaccination/Date Given: Yes Hx Influenza Vaccination/Date Given: No Hx Pneumococcal Vaccination/Date Given: No Immunizations Up to Date: Yes Travel Risk - International Travel Have you traveled outside of the country in past 3 weeks: No - Coronavirus Screening Are you exhibiting any of the following symptoms?: No Close contact with a COVID-19 positive Pt in past 14-21 Days: No - Past Medical History Pertinent Past Medical History: Yes Neurological History: No Pertinent History ENT History: No Pertinent History Cardiac History: Arrhythmia, Other Respiratory History: No Pertinent History Endocrine Medical History: No Pertinent History Musculoskeletal History: No Pertinent History GI Medical History: No Pertinent History History: No Pertinent History Psycho-Social History: No Pertinent History Female Reproductive Disorders: No Pertinent History Other Medical History: kidney stones; a-fib - Past Surgical History Past Surgical History: Yes Neuro Surgical History: No Pertinent History Cardiac: No Pertinent History Respiratory: No Pertinent History Gastrointestinal: Appendectomy Genitourinary: No Pertinent History Musculoskeletal: No Pertinent History Female Surgical History: Dilation & Curettage, Section, Tubal Ligation Other Surgical History: D&C, states ultrasound and stress showed irreg. heartbeat and chest pain in past few months, molder feeder unable to find irregular heartbeat. tubal 12/03/15 - Social History Smoking Status: Former smoker How long have you smoked: 12 Exposure to second hand smoke: Yes Drug Use: none Patient Lives Alone: No Significant Family History: no pertinent family hx - Female History Hx Last Menstrual Period: Tubal Hx Now: No - Review of Systems Constitutional: No Symptoms Eyes: No Symptoms Ears, Nose, & Throat: No Symptoms Respiratory: No Symptoms Cardiac: No Symptoms Abdominal/Gastrointestinal: No Symptoms Genitourinary Symptoms: No Symptoms Musculoskeletal: No Symptoms Skin: No Symptoms Neurological: No Symptoms Psychological: No Symptoms, Anxiety Endocrine: No Symptoms Hematologic/Lymphatic: No Symptoms Immunological/Allergic: No Symptoms - Nursing Vital Signs Nursing Vital Signs: Initial Vital Signs Temperature 98.3 F 04/13/20 19:36 Pulse Rate 104 H 04/13/20 19:36 Respiratory Rate 22 04/13/20 19:36 Blood Pressure 138/92 04/13/20 19:36 O2 Sat by Pulse Oximetry 98 04/13/20 19:36 Pain Scale Pain Intensity 0 - Physical Exam General Appearance: no apparent distress Eyes, Ears, Nose, Throat Exam: normal ENT inspection, pharynx normal Neck Exam: normal inspection, non-tender, supple, No Brudzinski, No Kernig's, No meningismus, No carotid bruit, No JVD Respiratory Exam: normal breath sounds, lungs clear, airway intact, No respiratory distress Cardiovascular Exam: regular rate/rhythm, normal heart sounds, normal peripheral pulses, No murmur Extremities Exam: normal inspection, normal range of motion Peripheral Pulses: carotid (R): 2+, carotid (L): 2+ Current Suicidality: denies suicide plan, No has suicide plan Neurological Exam: alert, normal mood/affect, calm, adult neurologist II-XII nml as tested, oriented x 3, responds to pain Appearance: appropriate appearance, appropriate insight, neat, no memory impairm ent, denies illness Behavior/Eye Contact/Speech: alert & cooperative, cooperative, good eye contact, normal speech Thoughts/Hallucinations: normal thought pattern, no apparent hallucination Skin Exam: normal color, warm, dry, No rash SpO2 Interpretation: normal SpO2: 98 O2 Delivery: Room Air - Course Nursing assessment & vital signs reviewed: Yes - Progress Progress Note: 04/13/20 20:17 Pt back to baseline as symptoms have resolved. She is under care of PCP for anxiety. Counseled pt/family regarding: diagnosis, need for follow-up - Departure Departure Disposition: Home Clinical Impression: Anxiety Condition: Stable Critical Care Time: No Referrals: ERNESTO CRUMP [Primary Care Provider] - Instructions: Anxiety, Adult (DC) Additional Instructions: Follow up with your family MD Return to ER as needed
[2020-04-13 20:23] VITALS: BP 117/72; PULSE 87
[2020-04-14 00:21] VITALS: O2SAT 98
== END 2020-04-13 20:24 | disposition home or self-care (01) ==
LOC: ED 19:25
DX: F41.9 Anxiety disorder, unspecified (principal)
CPT/HCPCS: 99283

== ENCOUNTER 2020-04-21 16:19 | Emergency (ER) | payer OTHER, SELFPAY ==
[2020-04-21] MEDS ORDERED: Sodium Chloride 0.9% 1000 ML 1,000 ML ONE (17:23)
[2020-04-21] MEDS ORDERED: Sodium Chloride 0.9% 1000 ML 1,000 ML IV SCH (17:30)
--- NOTE | 2020-04-21 17:56 | ERPHSYRPT ---
- History of Present Illness Time Seen by Provider: 04/21/20 16:40 Source: patient Exam Limitations: no limitations Patient Subjective Stated Complaint: Pt states "My blood pressure has been all over the place and I passed out earlier." Triage Nursing Assessment: Pt presented alert and oriented X 3, skin pwd Pt ambulates with an upright steady gait, able to speak in clear full sentences pt in no apparent respiratory distress. Physician History: Patient is a 34-year-old female presents to our ED for evaluation of blood pressure. Patient believes she may have had a syncopal episode. Patient has been monitoring her blood pressure constantly via an toni. Patient blood pressures are ranging from 108 is high as 140s. Patient states this makes her anxious. Patient called her primary care doctor and explained that she has been experiencing abnormal blood pressure and that she has been feeling faint. Patient's primary care doctor advised patient to come to our ED. Patient feels well at this time. No chest pain or shortness of breath. No nausea vomiting or diaphoresis. No weakness. No numbness tingling. Patient currently symptomatic. Patient states he is otherwise healthy. She voices no other complaints concerns at this time. Timing/Duration: today Severity: moderate Modifying Factors: Improves With: nothing Associated Symptoms: nausea, vomiting, abdominal pain, cough, chills, chest pain, fever, loss of appetite, syncope Allergies/Adverse Reactions: hydromorphone HCl [From Dilaudid] Allergy (Severe, Verified 04/13/20 19:40) Anaphylactic Reaction azithromycin [From Zithromax] Allergy (Intermediate, Verified 04/13/20 19:40) Hives erythromycin base [Erythromycin Base] Allergy (Mild, Verified 04/13/20 19:40) Tightness of Throat clonazepam [From Klonopin] Allergy (Verified 04/13/20 19:41) Swelling clonidine Allergy (Verified 04/13/20 19:41) Hives diphenhydramine [From Benadryl] Adverse Reaction (Intermediate, Verified 04/13/20 19:40) Vomiting lorazepam [From Ativan] Adverse Reaction (Verified 04/13/20 19:40) Swelling of Tongue and Lips morphine Adverse Reaction (Verified 04/13/20 19:40) Hives Home Medications: No Reportable Medications [No Reported Medications] 04/13/20 [History] Hx Tetanus, Diphtheria Vaccination/Date Given: Yes Hx Influenza Vaccination/Date Given: No Hx Pneumococcal Vaccination/Date Given: No Immunizations Up to Date: Yes Travel Risk - International Travel Have you traveled outside of the country in past 3 weeks: No - Coronavirus Screening Are you exhibiting any of the following symptoms?: No Close contact with a COVID-19 positive Pt in past 14-21 Days: No - Review of Systems Constitutional: No Symptoms, No Fever, No Chills Eyes: No Symptoms Ears, Nose, & Throat: No Symptoms Respiratory: No Symptoms, No Cough, No Dyspnea Cardiac: No Symptoms, No Chest Pain, No Edema, No Syncope Abdominal/Gastrointestinal: No Symptoms, No Abdominal Pain, No Nausea, No Vomiting, No Diarrhea Genitourinary Symptoms: No Symptoms, No Dysuria Musculoskeletal: No Symptoms, No Back Pain, No Neck Pain Skin: No Symptoms, No Rash Neurological: No Symptoms, No Dizziness, No Focal Weakness, No Sensory Changes Psychological: No Symptoms Endocrine: No Symptoms Hematologic/Lymphatic: No Symptoms All Other Systems: Reviewed and Negative - Past Medical History Pertinent Past Medical History: Yes Neurological History: No Pertinent History ENT History: No Pertinent History Cardiac History: Arrhythmia, Other Respiratory History: No Pertinent History Endocrine Medical History: No Pertinent History Musculoskeletal History: No Pertinent History GI Medical History: No Pertinent History History: No Pertinent History Psycho-Social History: No Pertinent History Female Reproductive Disorders: No Pertinent History Other Medical History: kidney stones; a-fib - Past Surgical History Past Surgical History: Yes Neuro Surgical History: No Pertinent History Cardiac: No Pertinent History Respiratory: No Pertinent History Gastrointestinal: Appendectomy Genitourinary: No Pertinent History Musculoskeletal: No Pertinent History Female Surgical History: Dilation & Curettage, Section, Tubal Ligation Other Surgical History: D&C, states ultrasound and stress showed irreg. heartbeat and chest pain in past few months, medical language specialist unable to find irregular heartbeat. tubal 12/03/15 - Social History Smoking Status: Former smoker How long have you smoked: 12 Exposure to second hand smoke: Yes Drug Use: none Patient Lives Alone: No Significant Family History: no pertinent family hx - Female History Hx Last Menstrual Period: 04/20/2020 Hx Now: No - Nursing Vital Signs Nursing Vital Signs: Initial Vital Signs Temperature 98.7 F 04/21/20 16:26 Pulse Rate 100 H 11/24/20 16:26 Respiratory Rate 20 04/21/20 16:26 Blood Pressure 100/64 04/21/20 16:26 O2 Sat by Pulse Oximetry 99 04/21/20 16:26 Pain Scale Pain Intensity 0 - Physical Exam General Appearance: no apparent distress, alert Eye Exam: PERRL/EOMI, eyes nml inspection Ears, Nose, Throat Exam: normal ENT inspection, TMs normal, pharynx normal, moist mucous membranes Neck Exam: normal inspection, non-tender, supple, full range of motion Respiratory Exam: normal breath sounds, lungs clear, No respiratory distress Cardiovascular Exam: regular rate/rhythm, normal heart sounds, normal peripheral pulses Gastrointestinal/Abdomen Exam: soft, normal bowel sounds, No tenderness, No mass Back Exam: normal inspection, normal range of motion, No CVA tenderness, No vertebral tenderness Extremity Exam: normal inspection, normal range of motion, pelvis stable Neurologic Exam: alert, oriented x 3, cooperative, normal mood/affect, nml cerebellar function, nml station & gait, sensation nml, No motor deficits Skin Exam: normal color, warm, dry, No rash Lymphatic Exam: No adenopathy SpO2 Interpretation: normal SpO2: 100 O2 Delivery: Room Air - Course Nursing assessment & vital signs reviewed: Yes EKG Interpreted by Me: RATE (78), Sinus Rhythm, NORMAL AXIS, NORMAL INTERVALS - Radiology Exams Chest X-ray Interpretation: Interpreted by me (Negative chest x-ray.) Ordered Tests: Active Orders 24 hr Category Date Time Status Business Development STAT Care 04/21/20 17:20 Active EKG-ER Only STAT Care 04/21/20 17:19 Active IV Insertion STAT Care 04/21/20 17:19 Active Pulse Oximetry (ED) STAT Care 04/21/20 17:19 Active CHEST 1 VIEW (PORTABLE) Stat Exams 04/21/20 17:19 Taken CBC W DIFF Stat Lab 04/21/20 17:33 Completed CMP Stat Lab 04/21/20 17:33 Received D-DIMER QUANTITATIVE Stat Lab 04/21/20 17:33 Received HCG,QUALITATIVE URINE Stat Lab 04/21/20 17:59 Completed MAGNESIUM Stat Lab 04/21/20 17:33 Received TROPONIN Q3H Lab 04/21/20 17:33 Received TROPONIN Q3H Lab 04/21/20 20:30 Ordered TROPONIN Q3H Lab 04/21/20 23:30 Ordered TROPONIN Q3H Lab 04/22/20 02:30 Ordered TROPONIN Q3H Lab 04/22/20 05:30 Ordered UA W/RFX UR CULTURE Stat Lab 04/21/20 17:33 Received Medication Summary Generic Name Dose Route Start Last Admin Trade Name Soloq PRN Reason Stop Dose Admin Sodium Chloride 1,000 mls @ 100 mls/hr 04/21/20 17:30 04/21/20 17:25 Sodium Chloride 0.9% 1000 Ml IV 05/21/20 17:29 100 mls/hr .Q10H TYSON Administration Lab/Rad Data: Laboratory Result Diagrams 04/21/20 17:33 Laboratory Results 04/21/20 04/21/20 04/21/20 Range/Units 17:59 17:33 17:33 WBC 7.4 (4.0-10.5) K/mm3 RBC 4.55 (4.1-5.4) M/mm3 Hgb 12.0 (12.0-16.0) gm/dl Hct 38.5 (35-47) % MCV 84.6 (78-100) fl MCH 26.4 (26-32) pg MCHC 31.2 L (32-36) g/dl RDW 15.9 H (11.5-14.0) % Plt Count 332 (150-450) K/mm3 MPV 9.8 (7.5-11.0) fl Gran % 63.9 (36.0-66.0) % Eos # (Auto) 0.05 (0-0.5) Absolute Lymphs (auto) 2.07 (1.0-4.6) Absolute Monos (auto) 0.53 (0.0-1.3) Lymphocytes % 27.9 (24.0-44.0) % Monocytes % 7.2 (0.0-12.0) % Eosinophils % 0.7 (0.00-5.0) % Basophils % 0.3 (0.0-0.4) % Absolute Granulocytes 4.74 (1.4-6.9) Basophils # 0.02 (0-0.4) Urine Color YELLOW (YELLOW) Urine Appearance SLIGHTLY CLOUDY (CLEAR) Urine pH 6.0 (5-6) Ur Specific [place] 1.024 (1.005-1.025) Urine Protein 30 (Negative) Urine Ketones NEGATIVE (NEGATIVE) Urine Blood LARGE (0-5) Thnag/ul Urine Nitrite NEGATIVE (NEGATIVE) Urine Bilirubin NEGATIVE (NEGATIVE) Urine Urobilinogen 2 (0-1) mg/dL Ur Leukocyte Esterase NEGATIVE (NEGATIVE) Urine WBC (Auto) 3-5 (0-5) /HPF Urine RBC (Auto) >101 (0-2) /HPF U Epithel Cells (Auto) RARE (FEW) /HPF Urine Bacteria (Auto) NONE SEEN (NEGATIVE) /HPF Urine Mucus (Auto) SLIGHT (NEGATIVE) /HPF Urine Culture Reflexed YES (NO) Urine Glucose NEGATIVE (NEGATIVE) mg/dL Urine HCG, Qual NEGATIVE (Negative) - Progress Progress: improved Progress Note: 04/21/20 18:15 . She continues to feel well. Repeat neuro exam within normal limits. There is hematuria observed on UA. However patient is currently on her menstrual period. Chest x-ray within normal limits. Patient requesting discharge. Will discharge home at this time. Patient follow-up with her primary care doctor within 48 hours for reevaluation. 04/21/20 18:18 Counseled pt/family regarding: lab results, diagnosis, need for follow-up, rad results - Departure Departure Disposition: Home Clinical Impression: Blood pressure check, Near syncope Condition: Stable Critical Care Time: No Referrals: ERNESTO CRUMP [Primary Care Provider] - Additional Instructions: Discharge/Care Plan TAMRA ALVAREZ was seen on 04/21/20 in the Emergency Room. The patient was counseled regarding Diagnosis,Lab results, Imaging studies, need for follow up and when to return to the Emergency Room. Prescriptions given: Discharge Note I have spoken with the patient and/or caregivers. I have explained the patient's condition, diagnosis and treatment plan based on the information available to me at this time. I have answered the patient's and/or caregiver's questions and addressed any concerns. The patient and/or caregivers have as good understanding of the patient's diagnosis, condition and treatment plan as can be expected at this point. The vital signs have been stable. The patient's condition is stable and appropriate for discharge from the emergency department. The patient will pursue further outpatient evaluation with the primary care physician or other designated or consulting physician as outlined in the discharge instructions. The patient and/or caregivers are agreeable to this plan of care and follow-up instructions have been explained in detail. The patient and/or caregivers have received these instruction. The patient/and or caregivers are aware that any significant change in condition or worsening of symptoms remedios uld prompt an immediate return to this or the closest emergency department or call 911.
[2020-04-21 18:01] LABS: Absolute Neutrophil Ct (ANC) 4.74 (1.4-6.9); Appearance SLIGHTLY CLOUDY (CLEAR); BASOPHIL % 0.3 % (0.0-0.4); Basophil (Absolute #) 0.02 (0-0.4); Bilirubin NEGATIVE (NEGATIVE); Blood LARGE Ery/ul (0-5); Eosinophil % 0.7 % (0.00-5.0); Eosinophil (Absolute #) 0.05 (0-0.5); Epithelial Cells RARE /HPF (FEW); Glucose NEGATIVE (NEGATIVE); Hematocrit 38.5 % (35-47); Ketones NEGATIVE (NEGATIVE); Leukocyte Esterase NEGATIVE (NEGATIVE); Lymphocyte (Absolute #) 2.07 (1.0-4.6); Lymphocytes % 27.9 % (24.0-44.0); Mean Cell Volume 84.6 fl (78-100); Mean Corpuscular Hemoglobin 26.4 pg (26-32); Mean Corpuscular Hgb Concent. 31.2 g/dl (32-36); Mean Platelet Volume 9.8 fl (7.5-11.0); Monocyte (Absolute #) 0.53 (0.0-1.3); Monocytes % 7.2 % (0.0-12.0); Mucus SLIGHT /HPF (NEGATIVE); Neutrophil % 63.9 % (36.0-66.0); Nitrite NEGATIVE (NEGATIVE); Platelet Count 332 K/mm3 (150-450); Protein,Urine Dip 30 (Negative); Red Blood Count 4.55 M/mm3 (4.1-5.4); Red Cell Distribution Width 15.9 % (11.5-14.0); Specific Gravity 1.024 (1.005-1.025); Urobilinogen 2 mg/dL (0-1); White Blood Count 7.4 K/mm3 (4.0-10.5)
[2020-04-21 18:08] LABS: Bacteria NONE SEEN /HPF (NEGATIVE); RBC >101 /HPF (0-2)
[2020-04-21 18:12] LABS: ALBUMIN 4.4 g/dL (3.5-5.0); ALKALINE PHOSPHATASE 59 U/L (38-126); ANION GAP 11.3 MEQ/L (5-15); BLOOD UREA NITROGEN 10 mg/dL (7-17); CHLORIDE 108 mmol/L (98-107); Calcium 9.5 mg/dL (8.4-10.2); Carbon Dioxide 24 mmol/L (22-30); Creatinine 1 0.61 mg/dL (0.52-1.04); EST GLOMERULAR FILTRATION RATE > 60.0 ML/MIN; Glucose 92 mg/dL (74-106); MAGNESIUM 2.2 mg/dL (1.6-2.3); Potassium 3.6 mmol/L (3.5-5.1); SGOT/AST 22 U/L (14-36); SGPT/ALT 21 U/L (0-35); SODIUM 140 mmol/L (137-145); Total Protein 8.1 g/dL (6.3-8.2)
[2020-04-21 18:30] VITALS: PULSE 78; O2SAT 98
[2020-04-21 18:53] VITALS: BP 106/69
--- NOTE | 2020-04-22 08:51 | XRAY ---
Indication: Hypertension. Comparison: March 30, 2020. Portable chest continues to demonstrate normal heart, lungs, and bony thorax.
== END 2020-04-21 18:53 | disposition home or self-care (01) ==
LOC: ED 16:19
DX: Z01.31 Encounter for examination of blood pressure with abnormal findings (principal); R55 Syncope and collapse
CPT/HCPCS: 36000; 36415; 71045; 80053; 81001; 83735; 84484; 84703; 85025; 85379; 87086; 93005; 93041; 94760; 99284

== ENCOUNTER 2020-05-18 12:41 | Emergency (ER) | payer OTHER ==
[2020-05-18 13:20] LABS: Absolute Neutrophil Ct (ANC) 3.11 (1.4-6.9); BASOPHIL % 0.4 % (0.0-0.4); Basophil (Absolute #) 0.02 (0-0.4); Eosinophil % 0.9 % (0.00-5.0); Eosinophil (Absolute #) 0.05 (0-0.5); Hematocrit 38.9 % (35-47); Lymphocyte (Absolute #) 1.78 (1.0-4.6); Lymphocytes % 33.3 % (24.0-44.0); Mean Cell Volume 85.1 fl (78-100); Mean Corpuscular Hemoglobin 26.3 pg (26-32); Mean Corpuscular Hgb Concent. 30.8 g/dl (32-36); Mean Platelet Volume 9.8 fl (7.5-11.0); Monocyte (Absolute #) 0.38 (0.0-1.3); Monocytes % 7.1 % (0.0-12.0); Neutrophil % 58.3 % (36.0-66.0); Platelet Count 289 K/mm3 (150-450); Red Blood Count 4.57 M/mm3 (4.1-5.4); Red Cell Distribution Width 15.5 % (11.5-14.0); White Blood Count 5.3 K/mm3 (4.0-10.5)
--- NOTE | 2020-05-18 13:20 | ERPHSYRPT ---
- History of Present Illness Time Seen by Provider: 05/18/20 12:55 Source: patient Patient Subjective Stated Complaint: " I have had left sided chest pain for a couple of days. It hurts in into my left shoulder and down my left arm. I think I have a muscle injury from when I was wrestling around with my kid". Triage Nursing Assessment: Pt presents to ER with complaints of left sided chest pain, rates pain on 6 on 10 scale. States pain radiates to to left shoulder and arm. Pt is alert and oriented x3. Denies any shortness of breath or cough. Respirations unlabored at this time. Pt skin is pink, warm, and dry. Pt has good ROM in bileratal arms. Does state believes she has muscle injury in left chest or arm from wrestling around with her child. Pt states pain is so bad she has nausea. Denies vomiting. Abd is soft and nontender. Pt states was covid test 2 or 3 weeks ago and told it was negative. Still states she has no taste or smell and fatigue. Physician History: Patient is a 34-year-old female presents to our ED with complaints of left-sided chest pain. Chest pain described as an ache that tends to radiate to her left shoulder area. Patient has a history of left sided chest wall strain. Patient states her symptoms are the same. Pain described as an ache that tends to worsen with movement and palpation. Overlying soft tissue intact. No associated shortness of breath. Pain rated 6 out of 10. No other injuries reported. Patient states that she was playing wrestling with her kids 2 days ago when symptoms started. Patient voices no other complaints or concerns at this time. Timing/Duration: day(s) Severity: moderate (Days ago) Modifying Factors: Improves With: movement Associated Symptoms: denies symptoms Allergies/Adverse Reactions: hydromorphone HCl [From Dilaudid] Allergy (Severe, Verified 05/18/20 12:54) Anaphylactic Reaction azithromycin [From Zithromax] Allergy (Intermediate, Verified 05/18/20 12:54) Hives erythromycin base [Erythromycin Base] Allergy (Mild, Verified 05/18/20 12:54) Tightness of Throat clonazepam [From Klonopin] Allergy (Verified 05/18/20 12:54) Swelling clonidine Allergy (Verified 05/18/20 12:54) Hives diphenhydramine [From Benadryl] Adverse Reaction (Intermediate, Verified 05/18/20 12:54) Vomiting lorazepam [From Ativan] Adverse Reaction (Verified 05/18/20 12:54) Swelling of Tongue and Lips morphine Adverse Reaction (Verified 05/18/20 12:54) Hives Home Medications: Sertraline HCl [Zoloft] 1 ml PO DAILY 05/18/20 [History] Hx Tetanus, Diphtheria Vaccination/Date Given: Yes Hx Influenza Vaccination/Date Given: Yes Hx Pneumococcal Vaccination/Date Given: Yes Immunizations Up to Date: Yes Travel Risk - International Travel Have you traveled outside of the country in past 3 weeks: No - Coronavirus Screening Are you exhibiting any of the following symptoms?: Yes Symptoms: Fever, Loss of Taste or Smell, Headaches/Body Aches/Fatigue Close contact with a COVID-19 positive Pt in past 14-21 Days: No - Review of Systems Constitutional: No Symptoms, No Fever, No Chills Eyes: No Symptoms Ears, Nose, & Throat: No Symptoms Respiratory: No Symptoms, No Cough, No Dyspnea Cardiac: No Symptoms, No Chest Pain, No Edema, No Syncope Abdominal/Gastrointestinal: No Symptoms, No Abdominal Pain, No Nausea, No Vomiting, No Diarrhea Genitourinary Symptoms: No Symptoms, No Dysuria Musculoskeletal: No Symptoms, No Back Pain, No Neck Pain Skin: No Symptoms, No Rash Neurological: No Symptoms, No Dizziness, No Focal Weakness, No Sensory Changes Psychological: No Symptoms Endocrine: No Symptoms Hematologic/Lymphatic: No Symptoms Immunological/Allergic: No Symptoms All Other Systems: Reviewed and Negative - Past Medical History Pertinent Past Medical History: Yes Neurological History: No Pertinent History ENT History: No Pertinent History Cardiac History: Arrhythmia, Other Respiratory History: No Pertinent History Endocrine Medical History: No Pertinent History Musculoskeletal History: No Pertinent History GI Medical History: No Pertinent History History: No Pertinent History Psycho-Social History: Anxiety, Depression Female Reproductive Disorders: No Pertinent History Other Medical History: kidney stones; a-fib - Past Surgical History Past Surgical History: Yes Neuro Surgical History: No Pertinent History Cardiac: No Pertinent History Respiratory: No Pertinent History Gastrointestinal: Appendectomy Genitourinary: No Pertinent History Musculoskeletal: No Pertinent History Female Surgical History: Dilation & Curettage, Section, Tubal Ligation Other Surgical History: D&C, states ultrasound and stress showed irreg. heartbeat and chest pain in past few months, emergency department director unable to find irregular heartbeat. tubal 12/03/15 - Social History Smoking Status: Never smoker How long have you smoked: 12 Exposure to second hand smoke: No Drug Use: none Patient Lives Alone: No Significant Family History: no pertinent family hx - Female History Hx Last Menstrual Period: 05/17/20 Hx Now: No - Nursing Vital Signs Nursing Vital Signs: Initial Vital Signs Temperature 97.7 F 05/18/20 12:49 Pulse Rate 70 05/18/20 12:49 Respiratory Rate 18 05/18/20 12:49 Blood Pressure 121/69 05/18/20 12:49 O2 Sat by Pulse Oximetry 98 05/18/20 12:49 Pain Scale Pain Intensity 3 - Physical Exam General Appearance: no apparent distress, alert Eye Exam: PERRL/EOMI, eyes nml inspection Ears, Nose, Throat Exam: normal ENT inspection, TMs normal, pharynx normal, moist mucous membranes Neck Exam: normal inspection, non-tender, supple, full range of motion Respiratory Exam: normal breath sounds, lungs clear, No respiratory distress Cardiovascular Exam: regular rate/rhythm, normal heart sounds, normal peripheral pulses, other (Palpation to left chest wall reproduces symptoms. Overlying soft tissue intact.) Gastrointestinal/Abdomen Exam: soft, normal bowel sounds, No tenderness, No mass Back Exam: normal inspection, normal range of motion, No CVA tenderness, No vertebral tenderness Extremity Exam: normal inspection, normal range of motion, pelvis stable Neurologic Exam: alert, oriented x 3, cooperative, normal mood/affect, nml cerebellar function, nml station & gait, sensation nml, No motor deficits Skin Exam: normal color, warm, dry, No rash Lymphatic Exam: No adenopathy SpO2 Interpretation: normal SpO2: 97 O2 Delivery: Room Air - Course Nursing assessment & vital signs reviewed: Yes EKG Interpreted by Me: RATE (68), Sinus Rhythm, NORMAL AXIS, NORMAL INTERVALS - Radiology Exams Chest X-ray Interpretation: Teleradiologist Report (Chest again demonstrates normal heart lungs and bony thorax.) Ordered Tests: Active Orders 24 hr Category Date Time Status Portable Track Line Marker STAT Care 05/18/20 12:56 Active EKG-ER Only STAT Care 05/18/20 12:55 Active IV Insertion STAT Care 05/18/20 12:55 Active Pulse Oximetry (ED) STAT Care 05/18/20 12:55 Active CHEST 1 VIEW (PORTABLE) Stat Exams 05/18/20 14:01 Completed CBC W DIFF Stat Lab 05/18/20 12:55 Completed CMP Stat Lab 05/18/20 13:10 Completed CULTURE,URINE Stat Lab 05/18/20 13:24 Received D-DIMER QUANTITATIVE Stat Lab 05/18/20 13:10 Completed HCG,QUALITATIVE URINE Stat Lab 05/18/20 13:24 Completed MAGNESIUM Stat Lab 05/18/20 13:10 Completed TROPONIN Q3H Lab 05/18/20 13:00 Completed TROPONIN Q3H Lab 05/18/20 16:00 Ordered TROPONIN Q3H Lab 05/18/20 19:00 Ordered TROPONIN Q3H Lab 05/18/20 22:00 Ordered TROPONIN Q3H Lab 05/19/20 01:00 Ordered UA W/RFX UR CULTURE Stat Lab 05/18/20 13:24 Completed Lab/Rad Data: Laboratory Result Diagrams 05/18/20 12:55 05/18/20 13:10 Laboratory Results 05/18/20 05/18/20 05/18/20 Range/Units 13:24 13:24 13:10 WBC (4.0-10.5) K/mm3 RBC (4.1-5.4) M/mm3 Hgb (12.0-16.0) gm/dl Hct (35-47) % MCV (78-100) fl MCH (26-32) pg MCHC (32-36) g/dl RDW (11.5-14.0) % Plt Count (150-450) K/mm3 MPV (7.5-11.0) fl Gran % (36.0-66.0) % Eos # (Auto) (0-0.5) Absolute Lymphs (auto) (1.0-4.6) Absolute Monos (auto) (0.0-1.3) Lymphocytes % (24.0-44.0) % Monocytes % (0.0-12.0) % Eosinophils % (0.00-5.0) % Basophils % (0.0-0.4) % Absolute Granulocytes (1.4-6.9) Basophils # (0-0.4) D-Dimer 392 (215-500) ng/mL Sodium (137-145) mmol/L Potassium (3.5-5.1) mmol/L Chloride (98-107) mmol/L Carbon Dioxide (22-30) mmol/L Anion Gap (5-15) MEQ/L BUN (7-17) mg/dL Creatinine (0.52-1.04) mg/dL Estimated GFR ML/MIN Glucose (74-106) mg/dL Calcium (8.4-10.2) mg/dL Magnesium (1.6-2.3) mg/dL Total Bilirubin (0.2-1.3) mg/dL AST (14-36) U/L ALT (0-35) U/L Alkaline Phosphatase (38-126) U/L Troponin I (0.000-0.034) ng/mL Serum Total Protein (6.3-8.2) g/dL Albumin (3.5-5.0) g/dL Urine Color YELLOW (YELLOW) Urine Appearance CLEAR (CLEAR) Urine pH 5.0 (5-6) Ur Specific Somers 1.021 (1.005-1.025) Urine Protein NEGATIVE (Negative) Urine Ketones NEGATIVE (NEGATIVE) Urine Blood LARGE (0-5) Thang/ul Urine Nitrite NEGATIVE (NEGATIVE) Urine Bilirubin NEGATIVE (NEGATIVE) Urine Urobilinogen NEGATIVE (0-1) mg/dL Ur Leukocyte Esterase NEGATIVE (NEGATIVE) Urine WBC (Auto) NONE (0-5) /HPF Urine RBC (Auto) 51-100 (0-2) /HPF U Epithel Cells (Auto) NONE (FEW) /HPF Urine Bacteria (Auto) NONE (NEGATIVE) /HPF Urine Mucus (Auto) SLIGHT (NEGATIVE) /HPF Urine Culture Reflexed YES (NO) Urine Glucose NEGATIVE (NEGATIVE) mg/dL Urine HCG, Qual NEGATIVE (Negative) 05/18/20 05/18/20 05/18/20 Range/Units 13:10 13:00 12:55 WBC 5.3 (4.0-10.5) K/mm3 RBC 4.57 (4.1-5.4) M/mm3 Hgb 12.0 (12.0-16.0) gm/dl Hct 38.9 (35-47) % MCV 85.1 (78-100) fl MCH 26.3 (26-32) pg MCHC 30.8 L (32-36) g/dl RDW 15.5 H (11.5-14.0) % Plt Count 289 (150-450) K/mm3 MPV 9.8 (7.5-11.0) fl Gran % 58.3 (36.0-66.0) % Eos # (Auto) 0.05 (0-0.5) Absolute Lymphs (auto) 1.78 (1.0-4.6) Absolute Monos (auto) 0.38 (0.0-1.3) Lymphocytes % 33.3 (24.0-44.0) % Monocytes % 7.1 (0.0-12.0) % Eosinophils % 0.9 (0.00-5.0) % Basophils % 0.4 (0.0-0.4) % Absolute Granulocytes 3.11 (1.4-6.9) Basophils # 0.02 (0-0.4) D-Dimer (215-500) ng/mL Sodium 139 (137-145) mmol/L Potassium 3.6 (3.5-5.1) mmol/L Chloride 108 H (98-107) mmol/L Carbon Dioxide 23 (22-30) mmol/L Anion Gap 11.2 (5-15) MEQ/L BUN 10 (7-17) mg/dL Creatinine 0.59 (0.52-1.04) mg/dL Estimated GFR > 60.0 ML/MIN Glucose 100 (74-106) mg/dL Calcium 9.2 (8.4-10.2) mg/dL Magnesium 1.8 (1.6-2.3) mg/dL Total Bilirubin 0.20 (0.2-1.3) mg/dL AST 24 (14-36) U/L ALT 24 (0-35) U/L Alkaline Phosphatase 69 (38-126) U/L Troponin I < 0.012 (0.000-0.034) ng/mL Serum Total Protein 7.6 (6.3-8.2) g/dL Albumin 4.1 (3.5-5.0) g/dL Urine Color (YELLOW) Urine Appearance (CLEAR) Urine pH (5-6) Ur Specific Somers (1.005-1.025) Urine Protein (Negative) Urine Ketones (NEGATIVE) Urine Blood (0-5) Thang/ul Urine Nitrite (NEGATIVE) Urine Bilirubin (NEGATIVE) Urine Urobilinogen (0-1) mg/dL Ur Leukocyte Esterase (NEGATIVE) Urine WBC (Auto) (0-5) /HPF Urine RBC (Auto) (0-2) /HPF U Epithel Cells (Auto) (FEW) /HPF Urine Bacteria (Auto) (NEGATIVE) /HPF Urine Mucus (Auto) (NEGATIVE) /HPF Urine Culture Reflexed (NO) Urine Glucose (NEGATIVE) mg/dL Urine HCG, Qual (Negative) - Progress Progress: improved Progress Note: 05/18/20 15:47 Hematuria observed in her urine however patient currently on her menstrual period. This is likely contamination. Patient's chest pain has been ongoing on for 2 days. Pain started after extensive physical activity. Troponin negative. D-dimer negative. Pain reproduced palpation the chest. Movement also reproduces pain. Patient has had chest muscle strain in the past and states this pain is identical. Will discharge patient home. EKG is sinus rhythm rate 68. No ischemic changes. Patient agrees to follow-up with her primary care doctor within 48 hours for reevaluation. Counseled pt/family regarding: lab results, diagnosis, need for follow-up, rad results - Departure Departure Disposition: Home Clinical Impression: Chest wall muscle strain Condition: Stable Critical Care Time: No Referrals: ERNESTO CRUMP [Primary Care Provider] - Additional Instructions: Discharge/Care Plan TAMRA ALVAREZ was seen on 05/18/20 in the Emergency Room. The patient was counseled regarding Diagnosis,Lab results, Imaging studies, need for follow up and when to return to the Emergency Room. Prescriptions given: Discharge Note I have spoken with the patient and/or caregivers. I have explained the patient's condition, diagnosis and treatment plan based on the information available to me at this time. I have answered the patient's and/or caregiver's questions and addressed any concerns. The patient and/or caregivers have as good understanding of the patient's diagnosis, condition and treatment plan as can be expected at this point. The vital signs have been stable. The patient's condition is stable and appropriate for discharge from the emergency department. The patient will pursue further outpatient evaluation with the primary care physician or other designated or consulting physician as outlined in the discharge instructions. The patient and/or caregivers are agreeable to this plan of care and follow-up instructions have been explained in detail. The patient and/or caregivers have received these instruction. The patient/and or caregivers are aware that any significant change in condition or worsening of symptoms shou ld prompt an immediate return to this or the closest emergency department or call 911.
[2020-05-18 13:30] LABS: ALBUMIN 4.1 g/dL (3.5-5.0); ALKALINE PHOSPHATASE 69 U/L (38-126); ANION GAP 11.2 MEQ/L (5-15); BLOOD UREA NITROGEN 10 mg/dL (7-17); CHLORIDE 108 mmol/L (98-107); Calcium 9.2 mg/dL (8.4-10.2); Carbon Dioxide 23 mmol/L (22-30); Creatinine 1 0.59 mg/dL (0.52-1.04); EST GLOMERULAR FILTRATION RATE > 60.0 ML/MIN; Glucose 100 mg/dL (74-106); MAGNESIUM 1.8 mg/dL (1.6-2.3); Potassium 3.6 mmol/L (3.5-5.1); SGOT/AST 24 U/L (14-36); SGPT/ALT 24 U/L (0-35); SODIUM 139 mmol/L (137-145); Total Protein 7.6 g/dL (6.3-8.2)
[2020-05-18 13:35] LABS: Appearance CLEAR (CLEAR); Bilirubin NEGATIVE (NEGATIVE); Blood LARGE Ery/ul (0-5); Glucose NEGATIVE (NEGATIVE); Ketones NEGATIVE (NEGATIVE); Leukocyte Esterase NEGATIVE (NEGATIVE); Mucus SLIGHT /HPF (NEGATIVE); Nitrite NEGATIVE (NEGATIVE); Protein,Urine Dip NEGATIVE (Negative); RBC 51-100 /HPF (0-2); Specific Gravity 1.021 (1.005-1.025); Urobilinogen NEGATIVE mg/dL (0-1)
--- NOTE | 2020-05-18 14:13 | XRAY ---
Indication: Chest pain. Suspect Covid 19. Comparison: May 11, 2020. Portable chest again demonstrates normal heart, lungs, and bony thorax.
[2020-05-18 15:11] VITALS: BP 127/76; PULSE 61
[2020-05-18 15:51] VITALS: O2SAT 97
== END 2020-05-18 16:05 | disposition home or self-care (01) ==
LOC: ED 12:41
DX: S29.011A Strain of muscle and tendon of front wall of thorax, initial encounter (principal); R07.89 Other chest pain
CPT/HCPCS: 36000; 36415; 71045; 80053; 81001; 83735; 84484; 84703; 85025; 85379; 87086; 93005; 93041; 94760; 99284

== ENCOUNTER 2020-05-20 14:38 | Emergency (ER) | payer OTHER, SELFPAY ==
--- NOTE | 2020-05-20 14:51 | ERPHSYRPT ---
- History of Present Illness Time Seen by Provider: 05/20/20 14:50 Historian: patient Exam Limitations: no limitations Patient Subjective Stated Complaint: CP Triage Nursing Assessment: pt to ED c/o CP x 3 days. was in ED 2 days ago and dx with muscle strain. pt states pain increased since ED visit. called PCP today and was referred back to ED. states when pain began 3 days ago she was moving furniture. rates 6/10 pain in L upper chest and L shoulder. skin PWD. ambulatory without asssist. heart sounds clear. A&Ox4. Physician History: This is a 34-year-old overweight white female who has a 3-day history of chest pain that she describes as an ache central substernally which radiates across into her left arm and shoulder. Patient states that it began a few days ago after moving furniture and also playing with her children. Patient was seen in this emergency department on 05/18/2020 and a work-up was performed and there was a negative cardiac work-up at that time. Patient has a remote history of arrhythmia and is not on any medication for this. She has a history of anxiety and depression. A chest x-ray was performed on that date as well and it was read as normal with no acute cardiopulmonary process. Patient states that the pain was getting worse today and she called her primary care physician's office and since she used the term chest pain they told her to come to the emergency department for evaluation. Patient denies cough she denies fever she denies nausea vomiting or diarrhea. She has no flulike symptoms. Patient did not fall onto her left shoulder left upper extremity and did not experience any trauma. Timing/Duration: day(s) (3) Activities at Onset: activity (Movement of her left upper extremity as well as palpation worsens the pain.) Quality: aching, burning Location: substernal, central Chest Pain Radiation: arm (Left) Severity of Pain-Max: moderate Severity of Pain-Current: mild Modifying Factors: Improves With: movement, palpation (Pain is reproducible.) Associated Symptoms: denies symptoms Prior Chest Pain/Cardiac Workup: recently seen/treated Nitro Today/Relief: no nitro taken today Aspirin Treatment Today: 81 mg x 4 Allergies/Adverse Reactions: hydromorphone HCl [From Dilaudid] Allergy (Severe, Verified 05/18/20 12:54) Anaphylactic Reaction azithromycin [From Zithromax] Allergy (Intermediate, Verified 05/18/20 12:54) Hives erythromycin base [Erythromycin Base] Allergy (Mild, Verified 05/18/20 12:54) Tightness of Throat clonazepam [From Klonopin] Allergy (Verified 05/18/20 12:54) Swelling clonidine Allergy (Verified 05/18/20 12:54) Hives diphenhydramine [From Benadryl] Adverse Reaction (Intermediate, Verified 05/18/20 12:54) Vomiting lorazepam [From Ativan] Adverse Reaction (Verified 05/18/20 12:54) Swelling of Tongue and Lips morphine Adverse Reaction (Verified 05/18/20 12:54) Hives Home Medications: Sertraline HCl [Zoloft] 1 ml PO DAILY 05/18/20 [History] Hx Tetanus, Diphtheria Vaccination/Date Given: Yes Hx Influenza Vaccination/Date Given: No Hx Pneumococcal Vaccination/Date Given: No Immunizations Up to Date: Yes Travel Risk - International Travel Have you traveled outside of the country in past 3 weeks: No - Coronavirus Screening Are you exhibiting any of the following symptoms?: No Close contact with a COVID-19 positive Pt in past 14-21 Days: No - Review of Systems Constitutional: No Symptoms Eyes: No Symptoms Ears, Nose, & Throat: No Symptoms Respiratory: No Symptoms Cardiac: Chest Pain Abdominal/Gastrointestinal: No Symptoms Genitourinary Symptoms: No Symptoms Musculoskeletal: Other (Left shoulder and left upper arm pain) Skin: No Symptoms Neurological: No Symptoms Psychological: No Symptoms Endocrine: No Symptoms Hematologic/Lymphatic: No Symptoms Immunological/Allergic: No Symptoms All Other Systems: Reviewed and Negative - Past Medical History Pertinent Past Medical History: Yes Neurological History: No Pertinent History ENT History: No Pertinent History Cardiac History: Arrhythmia, Other Respiratory History: No Pertinent History Endocrine Medical History: No Pertinent History Musculoskeletal History: No Pertinent History GI Medical History: No Pertinent History History: No Pertinent History Psycho-Social History: Anxiety, Depression Female Reproductive Disorders: No Pertinent History Other Medical History: kidney stones; a-fib - Past Surgical History Past Surgical History: Yes Neuro Surgical History: No Pertinent History Cardiac: No Pertinent History Respiratory: No Pertinent History Gastrointestinal: Appendectomy Genitourinary: No Pertinent History Musculoskeletal: No Pertinent History Female Surgical History: Dilation & Curettage, Section, Tubal Ligation Other Surgical History: D&C, states ultrasound and stress showed irreg. heartbeat and chest pain in past few months, civil engineer unable to find irregular heartbeat. tubal 12/03/15 - Social History Smoking Status: Never smoker How long have you smoked: 12 Exposure to second hand smoke: No Drug Use: none Patient Lives Alone: No Significant Family History: no pertinent family hx - Female History Hx Now: No (tubal) - Nursing Vital Signs Nursing Vital Signs: Initial Vital Signs Temperature 99.0 F 05/20/20 14:39 Pulse Rate 75 05/20/20 14:39 Respiratory Rate 16 05/20/20 14:39 Blood Pressure 118/74 05/20/20 14:39 O2 Sat by Pulse Oximetry 99 05/20/20 14:39 Pain Scale Pain Intensity 6 - Physical Exam General Appearance: no apparent distress, alert, anxiety, obese Eye Exam: PERRL/EOMI Ears, Nose, Throat Exam: normal ENT inspection, moist mucous membranes Neck Exam: normal inspection, non-tender, supple, full range of motion Respiratory Exam: normal breath sounds, chest tenderness, lungs clear, No respiratory distress, No airway intact Cardiovascular Exam: regular rate/rhythm, normal heart sounds, normal peripheral pulses Gastrointestinal/Abdomen Exam: soft, normal bowel sounds, No tenderness Pelvic Exam: not done Rectal Exam: not done Back Exam: normal inspection, normal range of motion, No CVA tenderness, No vertebral tenderness Extremity Exam: normal inspection, normal range of motion, tenderness (Left upper extremity with palpation and movement), No pelvis stable, No deformities Neurologic Exam: alert, oriented x 3, cooperative, clipper machine operator II-XII nml as tested, normal mood/affect, nml cerebellar function, nml station & gait, sensation nml Skin Exam: normal color, warm, dry Lymphatic Exam: No adenopathy SpO2 Interpretation: normal SpO2: 99 O2 Delivery: Room Air - Course Nursing assessment & vital signs reviewed: Yes EKG Interpreted by Me: RATE (75), Sinus Rhythm, NORMAL AXIS, LAFB, NORMAL INTERVALS, NORMAL QRS, Other (No acute ischemic changes on this EKG. Comparison EKG is 05/18/2020. There are no changes from that EKG.) Ordered Tests: Active Orders 24 hr Category Date Time Status EKG-ER Only STAT Care 05/20/20 15:05 Active Sling Application STAT Care 05/20/20 16:32 Ordered BMP Stat Lab 05/20/20 15:30 Completed D-DIMER QUANTITATIVE Stat Lab 05/20/20 15:30 Completed MAGNESIUM Stat Lab 05/20/20 15:30 Completed TROPONIN Q3H Lab 05/20/20 15:30 Completed TROPONIN Q3H Lab 05/20/20 18:15 Ordered TROPONIN Q3H Lab 05/20/20 21:15 Ordered TROPONIN Q3H Lab 05/21/20 00:15 Ordered TROPONIN Q3H Lab 05/21/20 03:15 Ordered Medication Summary Discontinued Medications Generic Name Dose Route Start Last Admin Trade Name Freq PRN Reason Stop Dose Admin Aspirin 243 mg 05/20/20 14:58 05/20/20 15:00 Baby Aspirin 81 Mg Chew PO 05/20/20 14:59 243 mg STAT ONE Administration Lab/Rad Data: Laboratory Result Diagrams 05/20/20 15:30 Laboratory Results 05/20/20 05/20/20 05/20/20 Range/Units 15:30 15:30 15:30 D-Dimer 485 (215-500) ng/mL Sodium (137-145) mmol/L Potassium (3.5-5.1) mmol/L Chloride (98-107) mmol/L Carbon Dioxide (22-30) mmol/L Anion Gap (5-15) MEQ/L BUN (7-17) mg/dL Creatinine (0.52-1.04) mg/dL Estimated GFR ML/MIN Glucose (74-106) mg/dL Calcium (8.4-10.2) mg/dL Magnesium 1.9 (1.6-2.3) mg/dL Troponin I < 0.012 (0.000-0.034) ng/mL 05/20/20 Range/Units 15:30 D-Dimer (215-500) ng/mL Sodium 138 (137-145) mmol/L Potassium 3.5 (3.5-5.1) mmol/L Chloride 107 (98-107) mmol/L Carbon Dioxide 22 (22-30) mmol/L Anion Gap 12.0 (5-15) MEQ/L BUN 10 (7-17) mg/dL Creatinine 0.56 (0.52-1.04) mg/dL Estimated GFR > 60.0 ML/MIN Glucose 96 (74-106) mg/dL Calcium 9.3 (8.4-10.2) mg/dL Magnesium (1.6-2.3) mg/dL Troponin I (0.000-0.034) ng/mL - Progress Progress: unchanged Air Movement: good Blood Culture(s) Obtained: No Antibiotics given: No Counseled pt/family regarding: lab results, diagnosis, need for follow-up - Departure Departure Disposition: Home Clinical Impression: Musculoskeletal pain Condition: Stable Critical Care Time: No Referrals: ERNESTO CRUMP [Primary Care Provider] - Additional Instructions: Wear sling for comfort. Follow-up with primary care doctor for persistent symptoms. Take medication as prescribed. Prescriptions: Carisoprodol 350 mg [Soma 350 mg] 350 mg PO Q8H PRN PRN #10 tablet PRN Reason: Muscle Spasms Prednisone 10 mg [Deltasone 10 mg] 10 mg PO TID #12 tablet
[2020-05-20] MEDS ORDERED: BABY ASPIRIN 81 MG CHEW PO ONE (14:58)
[2020-05-20 15:45] VITALS: BP 112/72
[2020-05-20 16:14] LABS: BLOOD UREA NITROGEN 10 mg/dL (7-17); CHLORIDE 107 mmol/L (98-107); Calcium 9.3 mg/dL (8.4-10.2); Carbon Dioxide 22 mmol/L (22-30); Creatinine 1 0.56 mg/dL (0.52-1.04); EST GLOMERULAR FILTRATION RATE > 60.0 ML/MIN; Glucose 96 mg/dL (74-106); Potassium 3.5 mmol/L (3.5-5.1); SODIUM 138 mmol/L (137-145)
[2020-05-20 16:44] VITALS: PULSE 86; O2SAT 97
== END 2020-05-20 16:50 | disposition home or self-care (01) ==
LOC: ED 14:38
DX: R07.9 Chest pain, unspecified (principal); M25.512 Pain in left shoulder; X50.9XXA Other and unspecified overexertion or strenuous movements or postures, initial encounter; Y93.89 Activity, other specified; Y92.89 Other specified places as the place of occurrence of the external cause
CPT/HCPCS: 36415; 80048; 83735; 84484; 85379; 93005; 99284; A9270-GY

== ENCOUNTER 2020-06-23 23:46 | Emergency (ER) | payer OTHER ==
[2020-06-23 23:52] VITALS: PULSE 83
--- NOTE | 2020-06-24 00:05 | ERPHSYRPT ---
- History of Present Illness Time Seen by Provider: 06/23/20 23:55 Source: patient Exam Limitations: no limitations Patient Subjective Stated Complaint: . Triage Nursing Assessment: . Physician History: Patient is a 35-year-old female presents to our ED for blood pressure check. She checked her blood pressure at home and found it to be low. Blood pressure at home monitor was 96/56. Patient became concerned with the numbers and called EMS. Patient is here for blood pressure check. Blood pressure check here is within normal limits. Patient is asymptomatic. No chest pain or shortness of breath. No nausea vomiting or diaphoresis. Patient was recently in our ED and had a complete work-up that was essentially negative. Patient voices no other complaints at this time. No nausea vomiting or diaphoresis. No trauma. No numbness tingling or weakness. Patient voices no other complaints or concerns at this time. Timing/Duration: today Severity: mild Modifying Factors: Improves With: nothing Associated Symptoms: denies symptoms Allergies/Adverse Reactions: hydromorphone HCl [From Dilaudid] Allergy (Severe, Verified 06/23/20 23:53) Anaphylactic Reaction azithromycin [From Zithromax] Allergy (Intermediate, Verified 06/23/20 23:53) Hives erythromycin base [Erythromycin Base] Allergy (Mild, Verified 06/23/20 23:53) Tightness of Throat clonazepam [From Klonopin] Allergy (Verified 06/23/20 23:53) Swelling clonidine Allergy (Verified 06/23/20 23:53) Hives diphenhydramine [From Benadryl] Adverse Reaction (Intermediate, Verified 06/23/20 23:53) Vomiting lorazepam [From Ativan] Adverse Reaction (Verified 06/23/20 23:53) Swelling of Tongue and Lips morphine Adverse Reaction (Verified 06/23/20 23:53) Hives Home Medications: Sertraline HCl [Zoloft] 1 ml PO DAILY 05/18/20 [History] Hx Tetanus, Diphtheria Vaccination/Date Given: Yes Hx Influenza Vaccination/Date Given: No Hx Pneumococcal Vaccination/Date Given: No Immunizations Up to Date: Yes Travel Risk - International Travel Have you traveled outside of the country in past 3 weeks: No - Coronavirus Screening Are you exhibiting any of the following symptoms?: No Close contact with a COVID-19 positive Pt in past 14-21 Days: No - Review of Systems Constitutional: No Symptoms, No Fever, No Chills Eyes: No Symptoms Ears, Nose, & Throat: No Symptoms Respiratory: No Symptoms, No Cough, No Dyspnea Cardiac: No Symptoms, No Chest Pain, No Edema, No Syncope Abdominal/Gastrointestinal: No Symptoms, No Abdominal Pain, No Nausea, No Vomiting, No Diarrhea Genitourinary Symptoms: No Symptoms, No Dysuria Musculoskeletal: No Symptoms, No Back Pain, No Neck Pain Skin: No Symptoms, No Rash Neurological: No Symptoms, No Dizziness, No Focal Weakness, No Sensory Changes Psychological: No Symptoms Endocrine: No Symptoms Hematologic/Lymphatic: No Symptoms Immunological/Allergic: No Symptoms All Other Systems: Reviewed and Negative - Past Medical History Pertinent Past Medical History: Yes Neurological History: No Pertinent History ENT History: No Pertinent History Cardiac History: Arrhythmia, Other Respiratory History: No Pertinent History Endocrine Medical History: No Pertinent History Musculoskeletal History: No Pertinent History GI Medical History: No Pertinent History History: No Pertinent History Psycho-Social History: Anxiety, Depression Female Reproductive Disorders: No Pertinent History Other Medical History: kidney stones; a-fib - Past Surgical History Past Surgical History: Yes Neuro Surgical History: No Pertinent History Cardiac: No Pertinent History Respiratory: No Pertinent History Gastrointestinal: Appendectomy Genitourinary: No Pertinent History Musculoskeletal: No Pertinent History Female Surgical History: Dilation & Curettage, Section, Tubal Ligation Other Surgical History: D&C, states ultrasound and stress showed irreg. heartbeat and chest pain in past few months, edge grinder unable to find irregular heartbeat. tubal 12/03/15 - Social History Smoking Status: Former smoker How long have you smoked: 12 Exposure to second hand smoke: Yes Drug Use: none Patient Lives Alone: No Significant Family History: no pertinent family hx - Female History Hx Last Menstrual Period: Tubal Hx Now: No - Nursing Vital Signs Nursing Vital Signs: Initial Vital Signs Temperature 97.5 F 06/23/20 23:51 Pulse Rate 83 06/23/20 23:51 Respiratory Rate 18 06/23/20 23:51 Blood Pressure 128/73 06/23/20 23:51 O2 Sat by Pulse Oximetry 97 06/23/20 23:51 Pain Scale Pain Intensity 3 - Physical Exam General Appearance: no apparent distress, alert Eye Exam: PERRL/EOMI, eyes nml inspection Ears, Nose, Throat Exam: normal ENT inspection, TMs normal, pharynx normal, moist mucous membranes Neck Exam: normal inspection, non-tender, supple, full range of motion Respiratory Exam: normal breath sounds, lungs clear, No respiratory distress Cardiovascular Exam: regular rate/rhythm, normal heart sounds, normal peripheral pulses Gastrointestinal/Abdomen Exam: soft, normal bowel sounds, No tenderness, No mass Back Exam: normal inspection, normal range of motion, No CVA tenderness, No vertebral tenderness Extremity Exam: normal inspection, normal range of motion, pelvis stable Neurologic Exam: alert, oriented x 3, cooperative, normal mood/affect, nml cereb ellar function, nml station & gait, sensation nml, No motor deficits Skin Exam: normal color, warm, dry, No rash Lymphatic Exam: No adenopathy SpO2 Interpretation: normal SpO2: 97 O2 Delivery: Room Air - Course Nursing assessment & vital signs reviewed: Yes - Progress Progress: unchanged Progress Note: 06/24/20 00:13 Patient asymptomatic. Patient was in our ED 4 days ago and had a complete work- up. Vitals are within normal limits. Patient keeps track of her vitals 4 times daily per her assurance auditor. No indication for work-up at this time. Will discharge patient home patient agrees to follow-up with her primary care doctor within 48 hours for reevaluation. 06/24/20 00:18 Counseled pt/family regarding: diagnosis, need for follow-up - Departure Departure Disposition: Home Clinical Impression: Encounter for medical screening examination Condition: Stable Critical Care Time: No Referrals: ERNESTO CRUMP [Primary Care Provider] - Additional Instructions: Discharge/Care Plan TAMRA ALVAREZ was seen on 06/24/20 in the Emergency Room. The patient was counseled regarding Diagnosis,Lab results, Imaging studies, need for follow up a nd when to return to the Emergency Room. Prescriptions given: Discharge Note I have spoken with the patient and/or caregivers. I have explained the patient's condition, diagnosis and treatment plan based on the information available to me at this time. I have answered the patient's and/or caregiver's questions and addressed any concerns. The patient and/or caregivers have as good understanding of the patient's diagnosis, condition and treatment plan as can be expected at this point. The vital signs have been stable. The patient's condition is stable and appropriate for discharge from the emergency department. The patient will pursue further outpatient evaluation with the primary care physician or other designated or consulting physician as outlined in the discharge instructions. The patient and/or caregivers are agreeable to this plan of care and follow-up instructions have been explained in detail. The patient and/or caregivers have received these instruction. The patient/and or caregivers are aware that any significant change in condition or worsening of symptoms should prompt an immediate return to this or the closest emergency department or call 911.
[2020-06-24 00:30] VITALS: BP 106/74; O2SAT 98
== END 2020-06-24 00:33 | disposition home or self-care (01) ==
LOC: ED 23:46
DX: Z00.00 Encounter for general adult medical examination without abnormal findings (principal)
CPT/HCPCS: 99283

== ENCOUNTER 2020-09-19 19:36 | Emergency (ER) | payer OTHER ==
--- NOTE | 2020-09-19 19:50 | ERPHSYRPT ---
- History of Present Illness Time Seen by Provider: 09/19/20 19:45 Source: patient, EMS Exam Limitations: no limitations Physician History: This is a 35-year-old overweight female who has a history of anxiety and depression and a questionable history of atrial fibrillation. She sees Dr. Rodriguez as her pier hand. Recently, she was taken off of her aspirin and Cardizem in preparation for an echocardiogram that is to be performed next week. This morning, patient states that her heart rate became rapid into the 150s. This slowed down to 103 208 bpm. But prior to arrival she started having right- sided chest pain which radiated into her right neck. Therefore she contacted EMS so that she could be transported to the emergency department. Patient denies shortness of breath. She has no abdominal pain. She is not taking any medications at this time. Timing/Duration: today Severity: mild Associated Symptoms: chest pain, No nausea, No vomiting, No shortness of breath, No syncope (Described as superficial ache that is in the right anterior chest and radiates up into her right neck), No weakness Allergies/Adverse Reactions: hydromorphone HCl [From Dilaudid] Allergy (Severe, Verified 09/19/20 19:52) Anaphylactic Reaction azithromycin [From Zithromax] Allergy (Intermediate, Verified 09/19/20 19:52) Hives erythromycin base [Erythromycin Base] Allergy (Mild, Verified 09/19/20 19:52) Tightness of Throat clonazepam [From Klonopin] Allergy (Verified 09/19/20 19:52) Swelling clonidine Allergy (Verified 09/19/20 19:52) Hives diphenhydramine [From Benadryl] Adverse Reaction (Intermediate, Verified 09/19/20 19:52) Vomiting lorazepam [From Ativan] Adverse Reaction (Verified 09/19/20 19:52) Swelling of Tongue and Lips morphine Adverse Reaction (Verified 09/19/20 19:52) Hives Hx Tetanus, Diphtheria Vaccination/Date Given: Yes Hx Influenza Vaccination/Date Given: No Hx Pneumococcal Vaccination/Date Given: No Travel Risk - International Travel Have you traveled outside of the country in past 3 weeks: No - Coronavirus Screening Are you exhibiting any of the following symptoms?: No Close contact with a COVID-19 positive Pt in past 14-21 Days: No - Vaccine Status Have you recieved a Covid-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: No - Review of Systems Constitutional: Night Sweats Eyes: No Symptoms Ears, Nose, & Throat: No Symptoms Respiratory: No Symptoms Cardiac: Chest Pain, Palpitations Abdominal/Gastrointestinal: No Symptoms Genitourinary Symptoms: No Symptoms Musculoskeletal: No Symptoms Skin: No Symptoms Neurological: No Symptoms Psychological: No Symptoms Endocrine: No Symptoms Hematologic/Lymphatic: No Symptoms Immunological/Allergic: No Symptoms All Other Systems: Reviewed and Negative - Past Medical History Pertinent Past Medical History: Yes Neurological History: No Pertinent History ENT History: No Pertinent History Cardiac History: Arrhythmia, Other Respiratory History: No Pertinent History Endocrine Medical History: No Pertinent History Musculoskeletal History: No Pertinent History GI Medical History: No Pertinent History History: No Pertinent History Psycho-Social History: Anxiety, Depression Female Reproductive Disorders: No Pertinent History Other Medical History: kidney stones; a-fib - Past Surgical History Past Surgical History: Yes Neuro Surgical History: No Pertinent History Cardiac: No Pertinent History Respiratory: No Pertinent History Gastrointestinal: Appendectomy Genitourinary: No Pertinent History Musculoskeletal: No Pertinent History Female Surgical History: Dilation & Curettage, Section, Tubal Ligation Other Surgical History: D&C, states ultrasound and stress showed irreg. heartbeat and chest pain in past few months, pier hand unable to find irregular heartbeat. tubal 12/03/15 - Social History Smoking Status: Former smoker How long have you smoked: 12 Exposure to second hand smoke: Yes Drug Use: none Patient Lives Alone: No Significant Family History: no pertinent family hx - Nursing Vital Signs Nursing Vital Signs: Initial Vital Signs Temperature 98.7 F 09/19/20 19:37 Pulse Rate 100 H 09/19/20 19:37 Respiratory Rate 20 09/19/20 19:37 Blood Pressure 135/90 09/19/20 19:37 O2 Sat by Pulse Oximetry 97 09/19/20 19:37 Pain Scale Pain Intensity 4 - Physical Exam General Appearance: no apparent distress, alert, anxiety Eye Exam: PERRL/EOMI, eyes nml inspection Ears, Nose, Throat Exam: normal ENT inspection, moist mucous membranes Neck Exam: normal inspection, non-tender, supple, full range of motion Respiratory Exam: normal breath sounds, chest tenderness, lungs clear, airway intact, No respiratory distress Cardiovascular Exam: regular rate/rhythm, normal heart sounds, normal peripheral pulses Gastrointestinal/Abdomen Exam: soft, normal bowel sounds, No tenderness Pelvic Exam: not done Rectal Exam: not done Back Exam: normal inspection, normal range of motion, No CVA tenderness, No vertebral tenderness Extremity Exam: normal inspection, normal range of motion, pelvis stable Neurologic Exam: alert, oriented x 3, cooperative, shoes hand sewer II-XII nml as tested, normal mood/affect, nml cerebellar function, nml station & gait, sensation nml Skin Exam: normal color, warm, dry Lymphatic Exam: No adenopathy SpO2 Interpretation: normal O2 Delivery: Room Air - Course Nursing assessment & vital signs reviewed: Yes EKG Interpreted by Me: RATE ([id number]), Sinus Rhythm, Left Imperial Deviation, NORMAL QRS, NORMAL ST-T, Other (On today's EKG there is mildly prolonged UT interval. There are no acute ischemic changes. When compared to EKG dated 05/20/2020, there are no changes.) Ordered Tests: Active Orders 24 hr Category Date Time Status Proposal Editor STAT Care 09/19/20 19:52 Active EKG-ER Only STAT Care 09/19/20 19:51 Active IV Insertion STAT Care 09/19/20 19:51 Active Pulse Oximetry (ED) STAT Care 09/19/20 19:51 Active CHEST 1 VIEW (PORTABLE) Stat Exams 09/19/20 19:51 Completed CBC W DIFF Stat Lab 09/19/20 19:15 Completed CMP Stat Lab 09/19/20 19:15 Completed D-DIMER QUANTITATIVE Stat Lab 09/19/20 19:15 Completed NT PRO BNP Stat Lab 09/19/20 19:15 Completed PROTIME WITH INR Stat Lab 09/19/20 19:15 Completed T4 (Thyroxine) Stat Lab 09/19/20 Ordered TROPONIN Q3H Lab 09/19/20 19:15 Completed TROPONIN Q3H Lab 09/19/20 23:00 Ordered TROPONIN Q3H Lab 09/20/20 02:00 Ordered TROPONIN Q3H Lab 09/20/20 05:00 Ordered TROPONIN Q3H Lab 09/20/20 08:00 Ordered TSH [TSH, 3RD Generation] Stat Lab 09/19/20 20:07 Ordered Lab/Rad Data: Laboratory Result Diagrams 09/19/20 19:15 09/19/20 19:15 Laboratory Results 09/19/20 09/19/20 09/19/20 Range/Units 19:15 19:15 19:15 WBC (4.0-10.5) K/mm3 RBC (4.1-5.4) M/mm3 Hgb (12.0-16.0) gm/dl Hct (35-47) % MCV (78-100) fl MCH (26-32) pg MCHC (32-36) g/dl RDW (11.5-14.0) % Plt Count (150-450) K/mm3 MPV (7.5-11.0) fl Gran % (36.0-66.0) % Eos # (Auto) (0-0.5) Absolute Lymphs (auto) (1.0-4.6) Absolute Monos (auto) (0.0-1.3) Lymphocytes % (24.0-44.0) % Monocytes % (0.0-12.0) % Eosinophils % (0.00-5.0) % Basophils % (0.0-0.4) % Absolute Granulocytes (1.4-6.9) Basophils # (0-0.4) PT 12.4 H (9.95-12.35) SECONDS INR 1.10 (0.8-3.0) D-Dimer 438 (215-500) ng/mL Sodium 139 (137-145) mmol/L Potassium 3.4 L (3.5-5.1) mmol/L Chloride 105 (98-107) mmol/L Carbon Dioxide 22 (22-30) mmol/L Anion Gap 16.0 H (5-15) MEQ/L BUN 11 (7-17) mg/dL Creatinine 0.62 (0.52-1.04) mg/dL Estimated GFR > 60.0 ML/MIN Glucose 147 H (74-106) mg/dL Calcium 9.9 (8.4-10.2) mg/dL Total Bilirubin 0.20 (0.2-1.3) mg/dL AST 24 (14-36) U/L ALT 25 (0-35) U/L Alkaline Phosphatase 71 (38-126) U/L Troponin I < 0.012 (0.000-0.034) ng/mL NT-Pro-B Natriuret Pep 21.7 (0-450) pg/mL Serum Total Protein 8.4 H (6.3-8.2) g/dL Albumin 4.6 (3.5-5.0) g/dL 09/19/20 Range/Units 19:15 WBC 7.9 (4.0-10.5) K/mm3 RBC 4.72 (4.1-5.4) M/mm3 Hgb 12.3 (12.0-16.0) gm/dl Hct 39.8 (35-47) % MCV 84.3 (78-100) fl MCH 26.1 (26-32) pg MCHC 30.9 L (32-36) g/dl RDW 16.0 H (11.5-14.0) % Plt Count 366 (150-450) K/mm3 MPV 9.8 (7.5-11.0) fl Gran % 48.0 (36.0-66.0) % Eos # (Auto) 0.08 (0-0.5) Absolute Lymphs (auto) 3.47 (1.0-4.6) Absolute Monos (auto) 0.51 (0.0-1.3) Lymphocytes % 44.2 H (24.0-44.0) % Monocytes % 6.5 (0.0-12.0) % Eosinophils % 1.0 (0.00-5.0) % Basophils % 0.3 (0.0-0.4) % Absolute Granulocytes 3.77 (1.4-6.9) Basophils # 0.02 (0-0.4) PT (9.95-12.35) SECONDS INR (0.8-3.0) D-Dimer (215-500) ng/mL Sodium (137-145) mmol/L Potassium (3.5-5.1) mmol/L Chloride (98-107) mmol/L Carbon Dioxide (22-30) mmol/L Anion Gap (5-15) MEQ/L BUN (7-17) mg/dL Creatinine (0.52-1.04) mg/dL Estimated GFR ML/MIN Glucose (74-106) mg/dL Calcium (8.4-10.2) mg/dL Total Bilirubin (0.2-1.3) mg/dL AST (14-36) U/L ALT (0-35) U/L Alkaline Phosphatase (38-126) U/L Troponin I (0.000-0.034) ng/mL NT-Pro-B Natriuret Pep (0-450) pg/mL Serum Total Protein (6.3-8.2) g/dL Albumin (3.5-5.0) g/dL - Progress Progress: improved, re-examined Progress Note: 09/19/20 20:45 Chest x-ray shows no acute cardiopulmonary process. Counseled pt/family regarding: lab results, diagnosis, need for follow-up, rad results - Departure Departure Disposition: Home Clinical Impression: Non-cardiac chest pain, Palpitations, Anxiety about health Condition: Stable Critical Care Time: No Referrals: ERNESTO CRUMP [Primary Care Provider] - Additional Instructions: Continue with your pier hand plan for holding off taking your medication. Follow-up with his office on Monday by phone to inform them of your symptoms and your visit to the emergency department. Keep your appointment with your pier hand for an echocardiogram.
[2020-09-19 20:04] LABS: Absolute Neutrophil Ct (ANC) 3.77 (1.4-6.9); BASOPHIL % 0.3 % (0.0-0.4); Basophil (Absolute #) 0.02 (0-0.4); Eosinophil (Absolute #) 0.08 (0-0.5); Hematocrit 39.8 % (35-47); Hemoglobin 12.3 gm/dl (12.0-16.0); Lymphocyte (Absolute #) 3.47 (1.0-4.6); Lymphocytes % 44.2 % (24.0-44.0); Mean Cell Volume 84.3 fl (78-100); Mean Corpuscular Hemoglobin 26.1 pg (26-32); Mean Corpuscular Hgb Concent. 30.9 g/dl (32-36); Mean Platelet Volume 9.8 fl (7.5-11.0); Monocyte (Absolute #) 0.51 (0.0-1.3); Monocytes % 6.5 % (0.0-12.0); Platelet Count 366 K/mm3 (150-450); Red Blood Count 4.72 M/mm3 (4.1-5.4); White Blood Count 7.9 K/mm3 (4.0-10.5)
[2020-09-19 20:15] LABS: ALBUMIN 4.6 g/dL (3.5-5.0); ALKALINE PHOSPHATASE 71 U/L (38-126); BLOOD UREA NITROGEN 11 mg/dL (7-17); CHLORIDE 105 mmol/L (98-107); Calcium 9.9 mg/dL (8.4-10.2); Carbon Dioxide 22 mmol/L (22-30); Creatinine 1 0.62 mg/dL (0.52-1.04); EST GLOMERULAR FILTRATION RATE > 60.0 ML/MIN; Glucose 147 mg/dL (74-106); Potassium 3.4 mmol/L (3.5-5.1); SGOT/AST 24 U/L (14-36); SGPT/ALT 25 U/L (0-35); SODIUM 139 mmol/L (137-145); Total Protein 8.4 g/dL (6.3-8.2)
[2020-09-19 20:21] LABS: NT PRO BNP 21.7 pg/mL (0-450)
[2020-09-19 20:28] LABS: INR 1.1 (0.8-3.0); PROTIME 12.4 SECONDS (9.95-12.35)
--- NOTE | 2020-09-19 20:37 | XRAY ---
Indication: Right chest pain. Comparison: May 18, 2020. Portable chest again demonstrates normal heart, lungs, and bony thorax.
[2020-09-19 20:46] VITALS: BP 131/77; PULSE 88; O2SAT 97
== END 2020-09-19 20:58 | disposition home or self-care (01) ==
LOC: ED 19:36
DX: R07.89 Other chest pain (principal); R00.2 Palpitations
CPT/HCPCS: 36415; 71045; 80053; 83880; 84436; 84443; 84484; 85025; 85379; 85610; 93005; 93041; 94760; 99284

== ENCOUNTER 2020-11-09 13:22 | Emergency (ER) | payer OTHER ==
[2020-11-09 13:30] VITALS: O2SAT 98
[2020-11-09] MEDS ORDERED: BABY ASPIRIN 81 MG CHEW PO ONE (13:46)
[2020-11-09 13:47] LABS: Absolute Neutrophil Ct (ANC) 4.63 (1.4-6.9); BASOPHIL % 0.3 % (0.0-0.4); Basophil (Absolute #) 0.02 (0-0.4); Eosinophil % 0.8 % (0.00-5.0); Eosinophil (Absolute #) 0.06 (0-0.5); Hematocrit 36.9 % (35-47); Hemoglobin 11.2 gm/dl (12.0-16.0); Lymphocyte (Absolute #) 2.69 (1.0-4.6); Lymphocytes % 34.5 % (24.0-44.0); Mean Cell Volume 83.5 fl (78-100); Mean Corpuscular Hemoglobin 25.3 pg (26-32); Mean Corpuscular Hgb Concent. 30.4 g/dl (32-36); Mean Platelet Volume 9.9 fl (7.5-11.0); Monocyte (Absolute #) 0.39 (0.0-1.3); Neutrophil % 59.4 % (36.0-66.0); Platelet Count 318 K/mm3 (150-450); Red Blood Count 4.42 M/mm3 (4.1-5.4); Red Cell Distribution Width 16.2 % (11.5-14.0); White Blood Count 7.8 K/mm3 (4.0-10.5)
[2020-11-09] MEDS ORDERED: BABY ASPIRIN 81 MG CHEW ONE (13:51)
--- NOTE | 2020-11-09 13:54 | ERPHSYRPT ---
- History of Present Illness Historian: patient Exam Limitations: no limitations Patient Subjective Stated Complaint: " I have been having chest pains in my right side chest since this morning, it's been getting worse." Triage Nursing Assessment: Pt presents to ER with complaints of right sided chest pain that radiates to the middle of chest and down right arm. States has tingling down right arm. Pt appears anxious. Denies shortness of breath, respirations unlabored. Denies vomiting and diarrhea but has nausea. Has noted slight low blood pressure, states BP has been "botteming out" since been on Metoprolol. Pt skin is pink, warm, and dry. Ambulates without difficulty. Pt is alert and oriented x3. Rates pain 8/10 scale. States pain is constant and crushing. Physician History: 34yo wf w Mid-sternal CP x4hr w radiation to RUE. Pain 6/10 but has been up to 9/10. It is described as sharp, and nothing makes better or worse. She has had nausea/diaphoresis but denies vomiting/SOB. Pt denies cough/fever. She has a h/o Afib/HTN but denies MT/CAD/DM/Hyperlipidemia. Pt smoked 1ppd until 8 months ago. Father had MT mid 50's. Denies Meth/cocaine. Timing/Duration: other (4 hrs) Activities at Onset: other (Light activity) Quality: sharpness Location: substernal Chest Pain Radiation: arm (R shoulder) Severity of Pain-Current: moderate Modifying Factors: Improves With: nothing Associated Symptoms: nausea, diaphoresis, No vomiting, No palpitations, No heartburn, No abdominal pain, No shortness of breath, No cough, No hurts to breathe, No chills, No fever, No fatigue, No weakness, No swelling/lump in chest, No syncope, No rash, No headache, No dizziness, No edema, No back pain Prior Chest Pain/Cardiac Workup: no prior chest pain (w/u for Afib) Nitro Today/Relief: no nitro taken today Aspirin Treatment Today: no aspirin today Allergies/Adverse Reactions: hydromorphone HCl [From Dilaudid] Allergy (Severe, Verified 11/09/20 13:30) Anaphylactic Reaction azithromycin [From Zithromax] Allergy (Intermediate, Verified 11/09/20 13:30) Hives erythromycin base [Erythromycin Base] Allergy (Mild, Verified 11/09/20 13:30) Tightness of Throat clonazepam [From Klonopin] Allergy (Verified 11/09/20 13:30) Swelling clonidine Allergy (Verified 11/09/20 13:30) Hives diphenhydramine [From Benadryl] Adverse Reaction (Intermediate, Verified 11/09/20 13:30) Vomiting lorazepam [From Ativan] Adverse Reaction (Verified 11/09/20 13:30) Swelling of Tongue and Lips morphine Adverse Reaction (Verified 11/09/20 13:30) Hives Home Medications: Hydroxyzine HCl 10 mg PO QID PRN 11/09/20 [History] Metoprolol Tartrate 25 mg PO BID 11/09/20 [History] Hx Tetanus, Diphtheria Vaccination/Date Given: Yes Hx Influenza Vaccination/Date Given: Yes Hx Pneumococcal Vaccination/Date Given: No Immunizations Up to Date: Yes Travel Risk - International Travel Have you traveled outside of the country in past 3 weeks: No - Coronavirus Screening Are you exhibiting any of the following symptoms?: No Close contact with a COVID-19 positive Pt in past 14-21 Days: No - Vaccine Status Have you recieved a Covid-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: No - Review of Systems Constitutional: No Symptoms Eyes: No Symptoms Ears, Nose, & Throat: No Symptoms Respiratory: No Symptoms, Dyspnea Cardiac: No Symptoms, Chest Pain Abdominal/Gastrointestinal: No Symptoms, Nausea Genitourinary Symptoms: No Symptoms Musculoskeletal: No Symptoms Skin: No Symptoms Neurological: No Symptoms Psychological: No Symptoms Endocrine: No Symptoms Hematologic/Lymphatic: No Symptoms Immunological/Allergic: No Symptoms - Past Medical History Pertinent Past Medical History: Yes Neurological History: No Pertinent History ENT History: No Pertinent History Cardiac History: Arrhythmia, Hypertension, Other Respiratory History: No Pertinent History Endocrine Medical History: No Pertinent History Musculoskeletal History: No Pertinent History GI Medical History: No Pertinent History History: No Pertinent History Psycho-Social History: Anxiety, Depression Female Reproductive Disorders: No Pertinent History Other Medical History: kidney stones; a-fib, lupus - Past Surgical History Past Surgical History: Yes Neuro Surgical History: No Pertinent History Cardiac: No Pertinent History Respiratory: No Pertinent History Gastrointestinal: Appendectomy Genitourinary: No Pertinent History Musculoskeletal: No Pertinent History Female Surgical History: Dilation & Curettage, Section, Tubal Ligation Other Surgical History: D&C, states ultrasound and stress showed irreg. 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 tubal 12/03/15 - Social History Smoking Status: Former smoker How long have you smoked: 12 Exposure to second hand smoke: Yes Drug Use: none Patient Lives Alone: No Significant Family History: no pertinent family hx - Female History Hx Last Menstrual Period: 10/25/20 Hx Now: No - Nursing Vital Signs Nursing Vital Signs: Initial Vital Signs Temperature 98.4 F 11/09/20 13:24 Pulse Rate 103 H 11/09/20 13:24 Respiratory Rate 16 11/09/20 13:24 Blood Pressure 91/72 11/09/20 13:24 O2 Sat by Pulse Oximetry 98 11/09/20 13:24 Pain Scale Pain Intensity 4 - Physical Exam General Appearance: no apparent distress Eye Exam: PERRL/EOMI, eyes nml inspection Ears, Nose, Throat Exam: normal ENT inspection, TMs normal, pharynx normal, moist mucous membranes Neck Exam: normal inspection, non-tender, supple, full range of motion, No meningismus, No mass, No Brudzinski Respiratory Exam: normal breath sounds, chest tenderness (Mid-sternal TTP), lungs clear, airway intact, No respiratory distress Cardiovascular Exam: regular rate/rhythm, normal heart sounds, normal peripheral pulses, capillary refill <2 sec, No murmur Gastrointestinal/Abdomen Exam: soft, normal bowel sounds, No tenderness Back Exam: normal inspection, normal range of motion, No CVA tenderness, No vertebral tenderness Extremity Exam: normal inspection, normal range of motion Neurologic Exam: alert, oriented x 3, cooperative, lead technician II-XII nml as tested, normal mood/affect, nml cerebellar function, nml station & gait, sensation nml, No motor deficits, No sensory deficit Skin Exam: normal color, warm, dry Lymphatic Exam: No adenopathy SpO2 Interpretation: normal SpO2: 98 O2 Delivery: Room Air - Course EKG Interpreted by Me: RATE (NSR/R98/Mildly prolonged QTc/LAFB/Poor Rwave progression/Non-specific ST-Twave changes) - Radiology Exams Chest X-ray Interpretation: Discussed w/ radiologist (NAD) Ordered Tests: Active Orders 24 hr Category Date Time Status EKG-ER Only STAT Care 11/09/20 13:31 Completed IV Insertion STAT Care 11/09/20 13:31 Completed CHEST 1 VIEW (PORTABLE) Stat Exams 11/09/20 13:31 Completed CBC W DIFF Stat Lab 11/09/20 13:30 Completed CMP Stat Lab 11/09/20 13:30 Completed NT PRO BNP Stat Lab 11/09/20 13:30 Completed TROPONIN Q3H Lab 11/09/20 13:30 Completed TROPONIN Q3H Lab 11/09/20 15:39 Completed TROPONIN Q3H Lab 11/09/20 19:45 Ordered TROPONIN Q3H Lab 11/09/20 22:45 Ordered Medication Summary Discontinued Medications Generic Name Dose Route Start Last Admin Trade Name Freq PRN Reason Stop Dose Admin Aspirin 324 mg 11/09/20 13:46 11/09/20 13:50 Baby Aspirin 81 Mg Chew PO 11/09/20 13:47 324 mg STAT ONE Administration Aspirin Confirm 11/09/20 13:51 Baby Aspirin 81 Mg Chew Administered 11/09/20 13:52 Dose 324 mg .ROUTE .STK-MED ONE Ketorolac Tromethamine 30 mg 11/09/20 14:25 11/09/20 14:40 Toradol 30 Mg Injection IV 11/09/20 14:26 Not Given STAT ONE Ketorolac Tromethamine Confirm 11/09/20 14:31 Toradol 30 Mg Injection Administered 11/09/20 14:32 Dose 30 mg .ROUTE .STK-MED ONE Lab/Rad Data: Laboratory Result Diagrams 11/09/20 13:30 11/09/20 13:30 Laboratory Results 11/09/20 11/09/20 11/09/20 Range/Units 15:39 13:30 13:30 WBC (4.0-10.5) K/mm3 RBC (4.1-5.4) M/mm3 Hgb (12.0-16.0) gm/dl Hct (35-47) % MCV (78-100) fl MCH (26-32) pg MCHC (32-36) g/dl RDW (11.5-14.0) % Plt Count (150-450) K/mm3 MPV (7.5-11.0) fl Gran % (36.0-66.0) % Eos # (Auto) (0-0.5) Absolute Lymphs (auto) (1.0-4.6) Absolute Monos (auto) (0.0-1.3) Lymphocytes % (24.0-44.0) % Monocytes % (0.0-12.0) % Eosinophils % (0.00-5.0) % Basophils % (0.0-0.4) % Absolute Granulocytes (1.4-6.9) Basophils # (0-0.4) Sodium 138 (137-145) mmol/L Potassium 3.8 (3.5-5.1) mmol/L Chloride 107 (98-107) mmol/L Carbon Dioxide 19 L (22-30) mmol/L Anion Gap 15.4 H (5-15) MEQ/L BUN 12 (7-17) mg/dL Creatinine 0.55 (0.52-1.04) mg/dL Estimated GFR > 60.0 ML/MIN Glucose 122 H (74-106) mg/dL Calcium 9.5 (8.4-10.2) mg/dL Total Bilirubin 0.50 (0.2-1.3) mg/dL AST 29 (14-36) U/L ALT 25 (0-35) U/L Alkaline Phosphatase 56 (38-126) U/L Troponin I < 0.012 < 0.012 (0.000-0.034) ng/mL NT-Pro-B Natriuret Pep 78.9 (0-450) pg/mL Serum Total Protein 7.3 (6.3-8.2) g/dL Albumin 4.1 (3.5-5.0) g/dL 11/09/20 Range/Units 13:30 WBC 7.8 (4.0-10.5) K/mm3 RBC 4.42 (4.1-5.4) M/mm3 Hgb 11.2 L (12.0-16.0) gm/dl Hct 36.9 (35-47) % MCV 83.5 (78-100) fl MCH 25.3 L (26-32) pg MCHC 30.4 L (32-36) g/dl RDW 16.2 H (11.5-14.0) % Plt Count 318 (150-450) K/mm3 MPV 9.9 (7.5-11.0) fl Gran % 59.4 (36.0-66.0) % Eos # (Auto) 0.06 (0-0.5) Absolute Lymphs (auto) 2.69 (1.0-4.6) Absolute Monos (auto) 0.39 (0.0-1.3) Lymphocytes % 34.5 (24.0-44.0) % Monocytes % 5.0 (0.0-12.0) % Eosinophils % 0.8 (0.00-5.0) % Basophils % 0.3 (0.0-0.4) % Absolute Granulocytes 4.63 (1.4-6.9) Basophils # 0.02 (0-0.4) Sodium (137-145) mmol/L Potassium (3.5-5.1) mmol/L Chloride (98-107) mmol/L Carbon Dioxide (22-30) mmol/L Anion Gap (5-15) MEQ/L BUN (7-17) mg/dL Creatinine (0.52-1.04) mg/dL Estimated GFR ML/MIN Glucose (74-106) mg/dL Calcium (8.4-10.2) mg/dL Total Bilirubin (0.2-1.3) mg/dL AST (14-36) U/L ALT (0-35) U/L Alkaline Phosphatase (38-126) U/L Troponin I (0.000-0.034) ng/mL NT-Pro-B Natriuret Pep (0-450) pg/mL Serum Total Protein (6.3-8.2) g/dL Albumin (3.5-5.0) g/dL - Progress Progress: improved Progress Note: 11/09/20 16:12 Pt refused IV Toradol after developing a Toradol allergy. Toradol not listed as an allergy in her records and has received it several times wo allergic rx. Pain greatly improved before discharge. 11/09/20 16:17 324mg ASA after Hx/PE 11/09/20 16:37 Heart Score2 Wells Criteria for PE 0 Counseled pt/family regarding: lab results, diagnosis, need for follow-up, rad results - Departure Departure Disposition: Home Clinical Impression: Chest pain Condition: Stable Critical Care Time: No Referrals: ERNESTO CRUMP [Primary Care Provider] - Instructions: Chest Pain (DC) Additional Instructions: Follow up with your family MD in 1-2 days Return to ER for increasing pain or shortness of breath
--- NOTE | 2020-11-09 14:02 | XRAY ---
Indication: Chest pain. Comparison: September 19, 2020. Portable chest continues to demonstrate normal heart, lungs, and bony thorax.
[2020-11-09 14:14] LABS: ALBUMIN 4.1 g/dL (3.5-5.0); ALKALINE PHOSPHATASE 56 U/L (38-126); ANION GAP 15.4 MEQ/L (5-15); BLOOD UREA NITROGEN 12 mg/dL (7-17); CHLORIDE 107 mmol/L (98-107); Calcium 9.5 mg/dL (8.4-10.2); Carbon Dioxide 19 mmol/L (22-30); Creatinine 1 0.55 mg/dL (0.52-1.04); EST GLOMERULAR FILTRATION RATE > 60.0 ML/MIN; Glucose 122 mg/dL (74-106); NT PRO BNP 78.9 pg/mL (0-450); Potassium 3.8 mmol/L (3.5-5.1); SGOT/AST 29 U/L (14-36); SGPT/ALT 25 U/L (0-35); SODIUM 138 mmol/L (137-145); Total Protein 7.3 g/dL (6.3-8.2)
[2020-11-09] MEDS ORDERED: TORAdol 30 mg Injection ONE (14:31)
[2020-11-09] MEDS: TORAdol 30 mg Injection IV ONE ×2 (14:33→14:40)
[2020-11-09 16:14] VITALS: BP 151/107; PULSE 85
== END 2020-11-09 16:18 | disposition home or self-care (01) ==
LOC: ED 13:22
DX: R07.9 Chest pain, unspecified (principal); I10 Essential (primary) hypertension
CPT/HCPCS: 36000; 36415; 71045; 80053; 83880; 84484; 85025; 93005; 99284; J1885; A9270-GY

== ENCOUNTER 2020-12-02 13:14 | Emergency (ER) | payer OTHER ==
[2013-01-11 20:09] VITALS: BP 128/72
== END 2020-12-02 13:35 | disposition left against medical advice (07) ==
LOC: ED 13:14
DX: Z53.9 Procedure and treatment not carried out, unspecified reason (principal)
CPT/HCPCS: 99281

== ENCOUNTER 2021-01-25 18:32 | Emergency (ER) | payer OTHER ==
[2021-01-25 18:44] VITALS: O2SAT 100
[2021-01-25] MEDS ORDERED: Sodium Chloride 0.9% 1000 ML 1,000 ML IV STA (19:06)
[2021-01-25] MEDS ORDERED: Zofran 4 MG/2 ML VIAL IV ONE (19:06)
--- NOTE | 2021-01-25 19:32 | ERPHSYRPT ---
- History of Present Illness Source: patient, EMS Exam Limitations: no limitations Patient Subjective Stated Complaint: SOB x 2 days, CP x 1 hr Triage Nursing Assessment: pt to ED c/o SOB x 2 days and CP x 1 hr. COVID+ tested Monday and got results yesterday. currently feeling all COVID sx other than fever, and pt is afebrile on arrival. lung sounds clear and equal bilaterally. heart sounds clear. pt placed on NRB by EMS and switched to 3L NC on arrival to ED. O2 saturation remains 99% at this time. Physician History: 35 yo wf w +CV19 test on 01/21 presents w N/V/D/cough/fever/chills/myalgias/SHEEHAN since 01/19. Pt w good airway and good room air sats. Timing/Duration: other (01/19) Cough Quality/Degree: dry cough Possible Cause: no prior episodes Modifying Factors: Improves With: activity Associated Symptoms: fever, chills, cough, headache, muscle aches, nasal congestion, nasal drainage, shortness of breath Allergies/Adverse Reactions: hydromorphone HCl [From Dilaudid] Allergy (Severe, Verified 01/25/21 18:44) Anaphylactic Reaction azithromycin [From Zithromax] Allergy (Intermediate, Verified 01/25/21 18:44) Hives erythromycin base [Erythromycin Base] Allergy (Mild, Verified 01/25/21 18:44) Tightness of Throat clonazepam [From Klonopin] Allergy (Verified 01/25/21 18:44) Swelling clonidine Allergy (Verified 01/25/21 18:44) Hives diphenhydramine [From Benadryl] Adverse Reaction (Intermediate, Verified 01/25/21 18:44) Vomiting lorazepam [From Ativan] Adverse Reaction (Verified 01/25/21 18:44) Swelling of Tongue and Lips morphine Adverse Reaction (Verified 01/25/21 18:44) Hives Home Medications: Hydroxyzine HCl 10 mg PO QID PRN 11/09/20 [History] Metoprolol Tartrate 25 mg PO BID 11/09/20 [History] Hx Tetanus, Diphtheria Vaccination/Date Given: Yes Hx Influenza Vaccination/Date Given: No Hx Pneumococcal Vaccination/Date Given: No Immunizations Up to Date: No Travel Risk - International Travel Have you traveled outside of the country in past 3 weeks: No - Coronavirus Screening Are you exhibiting any of the following symptoms?: Yes Symptoms: Cough: New Onset, Shortness of Breath, Vomiting/Diarrhea, Loss of Taste or Smell, Headaches/Body Aches/Fatigue Close contact with a COVID-19 positive Pt in past 14-21 Days: Yes - Vaccine Status Have you recieved a Covid-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: No - Review of Systems Constitutional: No Symptoms, Fever, Chills, Fatigue, Lethargy, Malaise Eyes: No Symptoms Ears, Nose, & Throat: No Symptoms, Nose Congestion, Nose Discharge Respiratory: Cough, Dyspnea, Dyspnea on Exertion (HOWARD) Cardiac: No Symptoms Abdominal/Gastrointestinal: No Symptoms, Nausea, Vomiting, Diarrhea Genitourinary Symptoms: No Symptoms Musculoskeletal: No Symptoms, Arthralgias, Deformity Neurological: No Symptoms Psychological: No Symptoms Endocrine: No Symptoms Hematologic/Lymphatic: No Symptoms Immunological/Allergic: No Symptoms - Past Medical History Pertinent Past Medical History: Yes Neurological History: No Pertinent History ENT History: No Pertinent History Cardiac History: Arrhythmia, Hypertension, Other Respiratory History: No Pertinent History Endocrine Medical History: No Pertinent History Musculoskeletal History: No Pertinent History GI Medical History: No Pertinent History History: No Pertinent History Psycho-Social History: Anxiety, Depression Female Reproductive Disorders: No Pertinent History Other Medical History: kidney stones; a-fib, lupus - Past Surgical History Past Surgical History: Yes Neuro Surgical History: No Pertinent History Cardiac: No Pertinent History Respiratory: No Pertinent History Gastrointestinal: Appendectomy Genitourinary: No Pertinent History Musculoskeletal: No Pertinent History Female Surgical History: Dilation & Curettage, Section, Tubal Ligation Other Surgical History: D&C, states ultrasound and stress showed irreg. heartbeat and chest pain in past few months, texture artist unable to find irregular heartbeat. tubal 12/03/15 - Social History Smoking Status: Former smoker How long have you smoked: 12 Exposure to second hand smoke: Yes Drug Use: none Patient Lives Alone: No Significant Family History: no pertinent family hx - Female History Hx Now: No (tubal) - Nursing Vital Signs Nursing Vital Signs: Initial Vital Signs Temperature 97.6 F 01/25/21 18:34 Pulse Rate 102 H 01/25/21 18:34 Respiratory Rate 25 H 01/25/21 18:34 Blood Pressure 132/78 01/25/21 18:34 O2 Sat by Pulse Oximetry 100 01/25/21 18:34 Pain Scale Pain Intensity 3 Tachycardic/Mildly tachypneic - Physical Exam General Appearance: no apparent distress, anxiety Eye Exam: PERRL/EOMI, eyes nml inspection Ears, Nose, Throat Exam: normal ENT inspection, TMs normal, pharynx normal, moist mucous membranes Neck Exam: normal inspection, non-tender, supple, full range of motion, No meningismus, No mass, No Brudzinski, No Kernig's, No carotid bruit Respiratory Exam: normal breath sounds, lungs clear, airway intact, No respiratory distress Cardiovascular Exam: tachycardia, No murmur Gastrointestinal/Abdomen Exam: soft, normal bowel sounds, No tenderness Back Exam: normal inspection, normal range of motion, No CVA tenderness, No vertebral tenderness Extremity Exam: normal inspection, normal range of motion Neurologic Exam: alert, oriented x 3, cooperative, amusement park worker II-XII nml as tested, n ormal mood/affect, nml cerebellar function, nml station & gait, sensation nml, No motor deficits, No sensory deficit Skin Exam: normal color, warm, dry, No rash Lymphatic Exam: No adenopathy SpO2 Interpretation: normal SpO2: 100 O2 Delivery: Room Air - Course Nursing assessment & vital signs reviewed: Yes Ordered Tests: Active Orders 24 hr Category Date Time Status AMA [Release AMA] OM.NOW Care 01/25/21 20:23 Completed Medication Summary Discontinued Medications Generic Name Dose Route Start Last Admin Trade Name Freq PRN Reason Stop Dose Admin Sodium Chloride 1,000 mls @ 999 mls/hr 01/25/21 19:06 01/25/21 19:55 Sodium Chloride 0.9% 1000 Ml IV 01/25/21 20:06 999 mls/hr .Q1H1M STA Administration Sodium Chloride Confirm 01/25/21 19:38 Sodium Chloride 0.9% 1000 Ml Administered 01/25/21 19:39 Dose 1,000 mls @ ud .ROUTE .STK-MED ONE Ondansetron HCl 4 mg 01/25/21 19:06 01/25/21 19:54 Zofran 4 Mg/2 Ml Vial IV 01/25/21 19:07 4 mg STAT ONE Administration Ondansetron HCl Confirm 01/25/21 19:38 Zofran 4 Mg/2 Ml Vial Administered 01/25/21 19:39 Dose 4 mg .ROUTE .STK-MED ONE - Progress Air Movement: good Progress Note: 01/25/21 20:20 1L NS bolus started/4mg IV Zofran Pt decided to leave AMA before fluid bolus completed and re-evaluation. 01/26/21 02:10 - Departure Departure Disposition: AMA Clinical Impression: COVID-19 Condition: Stable Critical Care Time: No Referrals: ARNOLD CAMARILLO NP [Primary Care Provider] -
[2021-01-25] MEDS ORDERED: Sodium Chloride 0.9% 1000 ML 1,000 ML ONE (19:38)
[2021-01-25] MEDS ORDERED: Zofran 4 MG/2 ML VIAL ONE (19:38)
[2021-01-25 20:33] VITALS: BP 113/69; PULSE 84
== END 2021-01-25 20:20 | disposition left against medical advice (07) ==
LOC: ED 18:32
DX: U07.1 COVID-19 (principal); R06.02 Shortness of breath; R07.89 Other chest pain; R05 Cough; R50.9 Fever, unspecified; R51.9 Headache, unspecified; M79.18 Myalgia, other site; Z79.899 Other long term (current) drug therapy
CPT/HCPCS: 96360; 96374; 99284; J2405

== ENCOUNTER 2021-02-01 18:23 | Emergency (ER) | payer OTHER ==
[2021-02-01] MEDS ORDERED: Decadron 4 MG PO STA (19:02)
[2021-02-01] MEDS ORDERED: DECADRON 10MG INJ. ONE (19:12)
--- NOTE | 2021-02-01 19:21 | ERPHSYRPT ---
- History of Present Illness Time Seen by Provider: 02/01/21 18:32 Source: patient Exam Limitations: no limitations Patient Subjective Stated Complaint: experiencing COVID sx. tested positive . "I just feel like shit, I have all of them." Triage Nursing Assessment: pt to ED c/o increasing COVID sx. states she has been feeling symptomatic for 2 weeks but was tested and was positive on 01/28/21. increasing SOB. does appear labored on arrival, o2 sat 99%. afebrile. productive cough. NVD. loss taste and smell. SHEEHAN and bodyaches 12/05. Physician History: 35 years old with positive COVID-19, unvaccinated presented in the ER with 2 weeks history of progressively worsening symptoms of cough congestion, shortness of breath with exertion/deep breathing and off-and-on fever with nausea and diarrhea. Feeling weak fatigued and tired Timing/Duration: week(s) (2), gradual onset, worse Cough Quality/Degree: moderate, dry cough Modifying Factors: Worsens With: coughing, deep breath, exertion Associated Symptoms: fever, chills, chest pain/soreness, cough, dizziness, headache, muscle aches, nasal congestion, nasal drainage, shortness of breath, wheezing Allergies/Adverse Reactions: hydromorphone HCl [From Dilaudid] Allergy (Severe, Verified 01/25/21 18:44) Anaphylactic Reaction azithromycin [From Zithromax] Allergy (Intermediate, Verified 01/25/21 18:44) Hives erythromycin base [Erythromycin Base] Allergy (Mild, Verified 01/25/21 18:44) Tightness of Throat clonazepam [From Klonopin] Allergy (Verified 01/25/21 18:44) Swelling clonidine Allergy (Verified 01/25/21 18:44) Hives diphenhydramine [From Benadryl] Adverse Reaction (Intermediate, Verified 01/25/21 18:44) Vomiting lorazepam [From Ativan] Adverse Reaction (Verified 01/25/21 18:44) Swelling of Tongue and Lips morphine Adverse Reaction (Verified 01/25/21 18:44) Hives Home Medications: Hydroxyzine HCl 10 mg PO QID PRN 11/09/20 [History] Metoprolol Tartrate 25 mg PO BID 11/09/20 [History] Hx Tetanus, Diphtheria Vaccination/Date Given: Yes Hx Influenza Vaccination/Date Given: No Hx Pneumococcal Vaccination/Date Given: No Immunizations Up to Date: No Travel Risk - International Travel Have you traveled outside of the country in past 3 weeks: No - Coronavirus Screening Are you exhibiting any of the following symptoms?: Yes Symptoms: Fever, Cough: New Onset, Shortness of Breath, Vomiting/Diarrhea, Loss of Taste or Smell, Headaches/Body Aches/Fatigue - Vaccine Status Have you recieved a Covid-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: No - Review of Systems Constitutional: Fever, Chills, Fatigue, Weakness Eyes: No Symptoms Ears, Nose, & Throat: Nose Congestion, Throat Pain, Throat Swelling Respiratory: Cough, Dyspnea Cardiac: Chest Pain Abdominal/Gastrointestinal: Nausea, Diarrhea Genitourinary Symptoms: No Symptoms Musculoskeletal: Myalgias Neurological: Dizziness, Headache Psychological: Anxiety Endocrine: No Symptoms Hematologic/Lymphatic: No Symptoms Immunological/Allergic: No Symptoms - Past Medical History Pertinent Past Medical History: Yes Neurological History: No Pertinent History ENT History: No Pertinent History Cardiac History: Arrhythmia, Hypertension, Other Respiratory History: No Pertinent History Endocrine Medical History: No Pertinent History Musculoskeletal History: No Pertinent History GI Medical History: No Pertinent History History: No Pertinent History Psycho-Social History: Anxiety, Depression Female Reproductive Disorders: No Pertinent History Other Medical History: kidney stones; a-fib, lupus - Past Surgical History Past Surgical History: Yes Neuro Surgical History: No Pertinent History Cardiac: No Pertinent History Respiratory: No Pertinent History Gastrointestinal: Appendectomy Genitourinary: No Pertinent History Musculoskeletal: No Pertinent History Female Surgical History: Dilation & Curettage, Section, Tubal Ligation Other Surgical History: D&C, states ultrasound and stress showed irreg. 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 tubal 12/03/15 - Social History Smoking Status: Former smoker How long have you smoked: 12 Exposure to second hand smoke: Yes Drug Use: none Patient Lives Alone: No Significant Family History: no pertinent family hx - Female History Hx Now: No - Nursing Vital Signs Nursing Vital Signs: Initial Vital Signs Temperature 98.5 F 02/01/21 18:24 Pulse Rate 105 H 02/01/21 18:24 Respiratory Rate 22 02/01/21 18:24 Blood Pressure 127/76 02/01/21 18:24 O2 Sat by Pulse Oximetry 99 02/01/21 18:24 Pain Scale Pain Intensity 7 - Physical Exam General Appearance: no apparent distress, alert Eye Exam: PERRL/EOMI, eyes nml inspection Ears, Nose, Throat Exam: normal ENT inspection, pharyngeal erythema Neck Exam: normal inspection, non-tender, supple, full range of motion Respiratory Exam: wheezing, No chest tenderness, No respiratory distress Cardiovascular Exam: regular rate/rhythm, normal heart sounds (1.) Gastrointestinal/Abdomen Exam: soft, normal bowel sounds Back Exam: normal inspection, normal range of motion Extremity Exam: normal inspection, normal range of motion Neurologic Exam: alert, oriented x 3, cooperative Skin Exam: normal color SpO2 Interpretation: normal SpO2: 99 O2 Delivery: Room Air ([facility]) Ordered Tests: Active Orders 24 hr Category Date Time Status IV Insertion STAT Care 02/01/21 19:01 Active CHEST 1 VIEW (PORTABLE) Stat Exams 02/01/21 19:01 Taken BLOOD CULTURE Stat Lab 02/01/21 19:25 Received CBC W DIFF Stat Lab 02/01/21 19:20 Completed CMP Stat Lab 02/01/21 19:20 Completed D-DIMER QUANTITATIVE Stat Lab 02/01/21 19:25 Completed Lactic Acid Stat Lab 02/01/21 19:10 Completed Lactic Acid Stat Lab 02/01/21 21:17 Received Medication Summary Discontinued Medications Generic Name Dose Route Start Last Admin Trade Name Soloq PRN Reason Stop Dose Admin Dexamethasone 8 mg 02/01/21 19:02 02/01/21 19:13 Decadron 4 Mg PO 02/01/21 19:03 8 mg ONCE STA Administration Dexamethasone Sodium Phosphate Confirm 02/01/21 19:12 Decadron 10mg Inj. Administered 02/01/21 19:13 Dose 10 mg .ROUTE .STK-MED ONE Sodium Chloride 1,000 mls @ 999 mls/hr 02/01/21 19:51 02/01/21 21:19 Sodium Chloride 0.9% 1000 Ml IV 02/01/21 20:51 Infused .Q1H1M STA Infusion Sodium Chloride Confirm 02/01/21 20:00 Sodium Chloride 0.9% 1000 Ml Administered 02/01/21 20:01 Dose 1,000 mls @ ud .ROUTE .STK-MED ONE Lab/Rad Data: Laboratory Result Diagrams 02/01/21 19:20 02/01/21 19:20 Laboratory Results 02/01/21 02/01/21 02/01/21 Range/Units 19:25 19:20 19:20 WBC 8.1 (4.0-10.5) K/mm3 RBC 4.66 (4.1-5.4) M/mm3 Hgb 12.2 (12.0-16.0) gm/dl Hct 38.4 (35-47) % MCV 82.4 (78-100) fl MCH 26.2 (26-32) pg MCHC 31.8 L (32-36) g/dl RDW 16.2 H (11.5-14.0) % Plt Count 357 (150-450) K/mm3 MPV 10.2 (7.5-11.0) fl Gran % 55.1 (36.0-66.0) % Eos # (Auto) 0.08 (0-0.5) Absolute Lymphs (auto) 3.06 (1.0-4.6) Absolute Monos (auto) 0.49 (0.0-1.3) Lymphocytes % 37.7 (24.0-44.0) % Monocytes % 6.0 (0.0-12.0) % Eosinophils % 1.0 (0.00-5.0) % Basophils % 0.2 (0.0-0.4) % Absolute Granulocytes 4.47 (1.4-6.9) Basophils # 0.02 (0-0.4) D-Dimer < 215 L (215-500) ng/mL Sodium 140 (137-145) mmol/L Potassium 3.5 (3.5-5.1) mmol/L Chloride 108 H (98-107) mmol/L Carbon Dioxide 17 L (22-30) mmol/L Anion Gap 18.1 H (5-15) MEQ/L BUN 12 (7-17) mg/dL Creatinine 0.56 (0.52-1.04) mg/dL Estimated GFR > 60.0 ML/MIN Glucose 119 H (74-106) mg/dL Lactic Acid (0.4-2.0) Calcium 9.8 (8.4-10.2) mg/dL Total Bilirubin 0.20 (0.2-1.3) mg/dL AST 50 H (14-36) U/L ALT 33 (0-35) U/L Alkaline Phosphatase 96 (38-126) U/L Serum Total Protein 8.1 (6.3-8.2) g/dL Albumin 4.5 (3.5-5.0) g/dL 02/01/21 Range/Units 19:10 WBC (4.0-10.5) K/mm3 RBC (4.1-5.4) M/mm3 Hgb (12.0-16.0) gm/dl Hct (35-47) % MCV (78-100) fl MCH (26-32) pg MCHC (32-36) g/dl RDW (11.5-14.0) % Plt Count (150-450) K/mm3 MPV (7.5-11.0) fl Gran % (36.0-66.0) % Eos # (Auto) (0-0.5) Absolute Lymphs (auto) (1.0-4.6) Absolute Monos (auto) (0.0-1.3) Lymphocytes % (24.0-44.0) % Monocytes % (0.0-12.0) % Eosinophils % (0.00-5.0) % Basophils % (0.0-0.4) % Absolute Granulocytes (1.4-6.9) Basophils # (0-0.4) D-Dimer (215-500) ng/mL Sodium (137-145) mmol/L Potassium (3.5-5.1) mmol/L Chloride (98-107) mmol/L Carbon Dioxide (22-30) mmol/L Anion Gap (5-15) MEQ/L BUN (7-17) mg/dL Creatinine (0.52-1.04) mg/dL Estimated GFR ML/MIN Glucose (74-106) mg/dL Lactic Acid 2.6 H (0.4-2.0) Calcium (8.4-10.2) mg/dL Total Bilirubin (0.2-1.3) mg/dL AST (14-36) U/L ALT (0-35) U/L Alkaline Phosphatase (38-126) U/L Serum Total Protein (6.3-8.2) g/dL Albumin (3.5-5.0) g/dL - Progress Progress: improved Air Movement: good Progress Note: 02/01/21 22:03 She is given fluid bolus, steroids, on reevaluation feeling much better. Chest x-ray did not show any acute pneumonic infiltrates. Grossly unremarkable work- up except for some dehydration. No respiratory distress. I would put her on steroids, inhaler and Zofran to take as needed and recommended increase hydration. Discussed signs symptoms of worsening needing return to ER which he seems understanding. Stable for discharge. Antibiotics given: No Counseled pt/family regarding: diagnosis, need for follow-up, rad results - Departure Departure Disposition: Home Clinical Impression: COVID-19 virus detected, Dehydration Diarrhea Qualifiers: Diarrhea type: unspecified type Qualified Code(s): R19.7 - Diarrhea, unspecified Condition: Stable Critical Care Time: No Referrals: ARNOLD CAMARILLO NP [Primary Care Provider] - (In 2 days for reevaluation) Instructions: Coronavirus Disease 2019 (COVID-19) (DC), Viral Syndrome (DC) Additional Instructions: Drink plenty of fluids. Take Zofran/Tylenol as needed. Follow-up with primary care for reevaluation. Continue with steroids. Return to ER for increasing shortness of breath, persistent fever chills, intractable vomiting/diarrhea. Prescriptions: Dexamethasone [Decadron] 6 mg PO DAILY #5 tablet Albuterol 8 gm Mdi Hfa [Ventolin Hfa MDI] 8 gm IH Q4H #1 inh
[2021-02-01 19:35] LABS: Absolute Neutrophil Ct (ANC) 4.47 (1.4-6.9); BASOPHIL % 0.2 % (0.0-0.4); Basophil (Absolute #) 0.02 (0-0.4); Eosinophil (Absolute #) 0.08 (0-0.5); Hematocrit 38.4 % (35-47); Hemoglobin 12.2 gm/dl (12.0-16.0); Lymphocyte (Absolute #) 3.06 (1.0-4.6); Lymphocytes % 37.7 % (24.0-44.0); Mean Cell Volume 82.4 fl (78-100); Mean Corpuscular Hemoglobin 26.2 pg (26-32); Mean Corpuscular Hgb Concent. 31.8 g/dl (32-36); Mean Platelet Volume 10.2 fl (7.5-11.0); Monocyte (Absolute #) 0.49 (0.0-1.3); Neutrophil % 55.1 % (36.0-66.0); Platelet Count 357 K/mm3 (150-450); Red Blood Count 4.66 M/mm3 (4.1-5.4); Red Cell Distribution Width 16.2 % (11.5-14.0); White Blood Count 8.1 K/mm3 (4.0-10.5)
[2021-02-01 19:43] LABS: ALBUMIN 4.5 g/dL (3.5-5.0); ALKALINE PHOSPHATASE 96 U/L (38-126); ANION GAP 18.1 MEQ/L (5-15); BLOOD UREA NITROGEN 12 mg/dL (7-17); CHLORIDE 108 mmol/L (98-107); Calcium 9.8 mg/dL (8.4-10.2); Carbon Dioxide 17 mmol/L (22-30); Creatinine 1 0.56 mg/dL (0.52-1.04); EST GLOMERULAR FILTRATION RATE > 60.0 ML/MIN; Glucose 119 mg/dL (74-106); Potassium 3.5 mmol/L (3.5-5.1); SGOT/AST 50 U/L (14-36); SGPT/ALT 33 U/L (0-35); SODIUM 140 mmol/L (137-145); Total Protein 8.1 g/dL (6.3-8.2)
[2021-02-01] MEDS ORDERED: Sodium Chloride 0.9% 1000 ML 1,000 ML IV STA (19:51)
[2021-02-01] MEDS ORDERED: Sodium Chloride 0.9% 1000 ML 1,000 ML ONE (20:00)
[2021-02-01 22:42] VITALS: BP 129/78; PULSE 88; O2SAT 98
--- NOTE | 2021-02-02 08:50 | XRAY ---
Indication: Suspect Covid 19. Comparison: November 09, 2020. Portable chest again demonstrates normal heart, lungs, and bony thorax. Comment: Preliminary interpretation made by C. No critical discrepancy.
== END 2021-02-01 22:44 | disposition home or self-care (01) ==
LOC: ED 18:23
DX: U07.1 COVID-19 (principal); R19.7 Diarrhea, unspecified
CPT/HCPCS: 36415; 71045; 80053; 83605; 85025; 85379; 87040; 96360; 99284; J1100; A9270-GY

== ENCOUNTER 2021-02-03 12:44 | Emergency (ER) | payer OTHER ==
[2021-02-03 14:05] VITALS: BP 126/86
[2021-02-03 15:18] VITALS: PULSE 69; O2SAT 97
--- NOTE | 2021-02-03 16:04 | ERPHSYRPT ---
- History of Present Illness Time Seen by Provider: 02/03/21 13:00 Source: patient Exam Limitations: no limitations Patient Subjective Stated Complaint: pt here for swelling to lower legs yesterday, she believes it is from the steriods she is taking for covid, she aslo co pain to her chest today with a cough Triage Nursing Assessment: pt alert, resp easy, arrived per wc, face mask applied, skin w/d/p. no swelling noted to lower extemities, Physician History: Patient is a 35-year-old female presents to our ED as a referral from urgent care. Patient called her primary care doctor and advised her legs are swelling. Patient has been coughing and has chest pain with cough only. Patient went to urgent care was advised to come to our ED. Patient states she does not believe she needs to be here. She has no complaints otherwise. Patient states that her lower extremity swelling is likely due to the steroid she just started for her Covid. Patient has no chest pain at this time. No nausea vomiting or diaphores is. No headache. No rash. Patient has no complaints at this time. Timing/Duration: today Severity: mild Modifying Factors: Improves With: nothing Associated Symptoms: denies symptoms Allergies/Adverse Reactions: hydromorphone HCl [From Dilaudid] Allergy (Severe, Verified 02/03/21 12:53) Anaphylactic Reaction azithromycin [From Zithromax] Allergy (Intermediate, Verified 02/03/21 12:53) Hives erythromycin base [Erythromycin Base] Allergy (Mild, Verified 02/03/21 12:53) Tightness of Throat clonazepam [From Klonopin] Allergy (Verified 02/03/21 12:53) Swelling clonidine Allergy (Verified 02/03/21 12:53) Hives diphenhydramine [From Benadryl] Adverse Reaction (Intermediate, Verified 02/03/21 12:53) Vomiting lorazepam [From Ativan] Adverse Reaction (Verified 02/03/21 12:53) Swelling of Tongue and Lips morphine Adverse Reaction (Verified 02/03/21 12:53) Hives Home Medications: Hydroxyzine HCl 10 mg PO QID PRN 11/09/20 [History] Metoprolol Tartrate 25 mg PO BID 11/09/20 [History] Hx Tetanus, Diphtheria Vaccination/Date Given: Yes Hx Influenza Vaccination/Date Given: No Hx Pneumococcal Vaccination/Date Given: No Immunizations Up to Date: Yes Travel Risk - International Travel Have you traveled outside of the country in past 3 weeks: No - Coronavirus Screening Are you exhibiting any of the following symptoms?: Yes Symptoms: Cough: New Onset, Shortness of Breath, Vomiting/Diarrhea, Headache s/Body Aches/Fatigue - Vaccine Status Have you recieved a Covid-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: No - Review of Systems Constitutional: No Symptoms, No Fever, No Chills Eyes: No Symptoms Ears, Nose, & Throat: No Symptoms Respiratory: No Symptoms, No Cough, No Dyspnea Cardiac: No Symptoms, No Chest Pain, No Edema, No Syncope Abdominal/Gastrointestinal: No Symptoms, No Abdominal Pain, No Nausea, No Vomiting, No Diarrhea Genitourinary Symptoms: No Symptoms, No Dysuria Musculoskeletal: No Symptoms, No Back Pain, No Neck Pain Skin: No Symptoms, No Rash Neurological: No Symptoms, No Dizziness, No Focal Weakness, No Sensory Changes Psychological: No Symptoms Endocrine: No Symptoms Hematologic/Lymphatic: No Symptoms Immunological/Allergic: No Symptoms All Other Systems: Reviewed and Negative - Past Medical History Pertinent Past Medical History: Yes Neurological History: No Pertinent History ENT History: No Pertinent History Cardiac History: Arrhythmia, Hypertension, Other Respiratory History: No Pertinent History Endocrine Medical History: No Pertinent History Musculoskeletal History: No Pertinent History GI Medical History: No Pertinent History History: No Pertinent History Psycho-Social History: Anxiety, Depression Female Reproductive Disorders: No Pertinent History Other Medical History: kidney stones; a-fib, lupus - Past Surgical History Past Surgical History: Yes Neuro Surgical History: No Pertinent History Cardiac: No Pertinent History Respiratory: No Pertinent History Gastrointestinal: Appendectomy Genitourinary: No Pertinent History Musculoskeletal: No Pertinent History Female Surgical History: Dilation & Curettage, Section, Tubal Ligation Other Surgical History: D&C, states ultrasound and stress showed irreg. 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 tubal 12/03/15 - Social History Smoking Status: Former smoker How long have you smoked: 12 Exposure to second hand smoke: Yes Drug Use: none Patient Lives Alone: No Significant Family History: no pertinent family hx - Female History Hx Last Menstrual Period: last week Hx Now: No - Nursing Vital Signs Nursing Vital Signs: Initial Vital Signs Temperature 97.2 F 02/03/21 12:45 Pulse Rate 80 02/03/21 12:45 Respiratory Rate 18 02/03/21 12:45 Blood Pressure 132/90 02/03/21 12:45 O2 Sat by Pulse Oximetry 98 02/03/21 12:45 Pain Scale Pain Intensity 6 - Physical Exam General Appearance: no apparent distress, alert Eye Exam: PERRL/EOMI, eyes nml inspection Ears, Nose, Throat Exam: normal ENT inspection, TMs normal, pharynx normal, moist mucous membranes Neck Exam: normal inspection, non-tender, supple, full range of motion Respiratory Exam: normal breath sounds, lungs clear, No respiratory distress Cardiovascular Exam: regular rate/rhythm, normal heart sounds, normal peripheral pulses Gastrointestinal/Abdomen Exam: soft, normal bowel sounds, No tenderness, No mass Back Exam: normal inspection, normal range of motion, No CVA tenderness, No vertebral tenderness Extremity Exam: normal inspection, normal range of motion, pelvis stable, other (No leg swelling observed on today's exam. Negative Homans' sign bilaterally. Bilateral lower extremity is neurovascular intact distally.) Neurologic Exam: alert, oriented x 3, cooperative, normal mood/affect, sensation nml, No motor deficits Skin Exam: normal color, warm, dry, No rash Lymphatic Exam: No adenopathy SpO2 Interpretation: normal SpO2: 97 O2 Delivery: Room Air - Course Nursing assessment & vital signs reviewed: Yes Ordered Tests: Active Orders 24 hr Category Date Time Status AMA [Release AMA] OM.NOW Care 02/03/21 15:58 Ordered CBC W DIFF Stat Lab 02/03/21 15:52 Ordered CMP Stat Lab 02/03/21 15:52 Ordered TROPONIN Q3H Lab 02/03/21 16:00 Ordered TROPONIN Q3H Lab 02/03/21 19:00 Ordered TROPONIN Q3H Lab 02/03/21 22:00 Ordered - Progress Progress: unchanged Progress Note: Patient states she is hungry and wants to go home. Will discharge AGAINST MEDICAL ADVICE. Portions of this note were created with voice recognition technology. There may be grammatical, spelling, punctuation or sound alike errors 02/03/21 16:02 Counseled pt/family regarding: diagnosis, need for follow-up - Departure Departure Disposition: Home Clinical Impression: Cough, Leg swelling Condition: Stable Critical Care Time: No Referrals: ARNOLD CAMARILLO NP [Primary Care Provider] - Additional Instructions: Discharge/Care Plan TAMRA ALVAREZ was seen on 02/03/21 in the Emergency Room. The patient was counseled regarding Diagnosis,Lab results, Imaging studies, need for follow up and when to return to the Emergency Room. Prescriptions given: Discharge Note I have spoken with the patient and/or caregivers. I have explained the patient's condition, diagnosis and treatment plan based on the information available to me at this time. I have answered the patient's and/or caregiver's questions and addressed any concerns. The patient and/or caregivers have as good understanding of the patient's diagnosis, condition and treatment plan as can be expected at this point. The vital signs have been stable. The patient's condition is stable and appropriate for discharge from the emergency department. The patient will pursue further outpatient evaluation with the primary care physician or other designated or consulting physician as outlined in the discharge instructions. The patient and/or caregivers are agreeable to this plan of care and follow-up instructions have been explained in detail. The patient and/or caregivers have received these instruction. The patient/and or caregivers are aware that any significant change in condition or worsening of symptoms should prompt an immediate return to this or the closest emergency department or call 911.
== END 2021-02-03 16:00 | disposition left against medical advice (07) ==
LOC: ED 12:44
DX: R05 Cough (principal); M79.89 Other specified soft tissue disorders
CPT/HCPCS: 99283

== ENCOUNTER 2021-05-18 13:50 | Emergency (ER) | payer OTHER ==
[2021-05-18] MEDS ORDERED: Zofran 4 MG/2 ML VIAL ONE (14:41)
[2021-05-18] MEDS ORDERED: Sodium Chloride 0.9% 1000 ML 1,000 ML ONE (14:41)
[2021-05-18] MEDS: Sodium Chloride 0.9% 1000 ML 1,000 ML IV STA (14:45)
[2021-05-18] MEDS: Zofran 4 MG/2 ML VIAL IV ONE (14:45)
[2021-05-18 14:47] LABS: Absolute Neutrophil Ct (ANC) 1.06 (1.4-6.9); Basophil (Absolute #) 0 (0-0.4); Eosinophil % 1.5 % (0.00-5.0); Eosinophil (Absolute #) 0.04 (0-0.5); Hematocrit 39.5 % (35-47); Hemoglobin 12.3 gm/dl (12.0-16.0); Lymphocyte (Absolute #) 1.33 (1.0-4.6); Lymphocytes % 48.9 % (24.0-44.0); Mean Cell Volume 82.8 fl (78-100); Mean Corpuscular Hemoglobin 25.8 pg (26-32); Mean Corpuscular Hgb Concent. 31.1 g/dl (32-36); Mean Platelet Volume 10.1 fl (7.5-11.0); Monocyte (Absolute #) 0.29 (0.0-1.3); Monocytes % 10.7 % (0.0-12.0); Neutrophil % 38.9 % (36.0-66.0); Platelet Count 263 K/mm3 (150-450); Red Blood Count 4.77 M/mm3 (4.1-5.4); Red Cell Distribution Width 15.8 % (11.5-14.0); White Blood Count 2.7 K/mm3 (4.0-10.5)
[2021-05-18 14:58] LABS: ALBUMIN 4.4 g/dL (3.5-5.0); ALKALINE PHOSPHATASE 75 U/L (38-126); ANION GAP 14.9 MEQ/L (5-15); BLOOD UREA NITROGEN 9 mg/dL (7-17); CHLORIDE 107 mmol/L (98-107); Calcium 9.3 mg/dL (8.4-10.2); Carbon Dioxide 20 mmol/L (22-30); Creatinine 1 0.61 mg/dL (0.52-1.04); EST GLOMERULAR FILTRATION RATE > 60.0 ML/MIN; Glucose 94 mg/dL (74-106); LIPASE 120 U/L (23-300); Potassium 3.7 mmol/L (3.5-5.1); SGOT/AST 24 U/L (14-36); SGPT/ALT 21 U/L (0-35); SODIUM 139 mmol/L (137-145); Total Protein 7.8 g/dL (6.3-8.2)
--- NOTE | 2021-05-18 15:37 | ERPHSYRPT ---
- History of Present Illness Time Seen by Provider: 05/18/21 14:36 Historian: patient Exam Limitations: no limitations Patient Subjective Stated Complaint: Pt states "I went to [facility] yesterday and I was tested for flu and covid and the flu was negative but covid not back yet. I have not eaten or drank anything in two days. I have not peed in 2 days." Triage Nursing Assessment: Pt presented alert and oriented X 3, skin pwd Pt ambulates with an upright steady gait, able to speak in clear full sentences pt slightly tachypniec. Physician History: 35 years old female presented to the ER with chief complaint of generalized weakness fatigue and tiredness after she is having minimal generalized abdominal pain with multiple episodes of nonprojectile, nonbilious vomiting/no hematemesis and also multiple loose stools. Not able to hold much down for last 2 days. Feels dehydrated fatigued and tired. She had outpatient Covid done yesterday which is not resulted yet but her flu was negative. Subjective feeling of chills and fever. No difficulty breathing or chest pain. Did have COVID-19 few months ago. Timing/Duration: day(s) (2), gradual onset, worse Activities at Onset: rest (Your, and,) Quality: aching Abdominal Pain Onset Location: generalized abdomen Pain Radiation: no radiation Severity of Pain-Max: mild Severity of Pain-Current: mild Modifying Factors: Worsens With: vomiting Associated Symptoms: diarrhea, nausea, vomiting Previous symptoms: no prior history Allergies/Adverse Reactions: ceftriaxone [From Rocephin] Allergy (Severe, Verified 05/18/21 14:01) hives and swelling hydromorphone HCl [From Dilaudid] Allergy (Severe, Verified 02/03/21 12:53) Anaphylactic Reaction azithromycin [From Zithromax] Allergy (Intermediate, Verified 02/03/21 12:53) Hives erythromycin base [Erythromycin Base] Allergy (Mild, Verified 02/03/21 12:53) Tightness of Throat clonazepam [From Klonopin] Allergy (Verified 02/03/21 12:53) Swelling clonidine Allergy (Verified 02/03/21 12:53) Hives diphenhydramine [From Benadryl] Adverse Reaction (Intermediate, Verified 02/03/21 12:53) Vomiting lorazepam [From Ativan] Adverse Reaction (Verified 02/03/21 12:53) Swelling of Tongue and Lips morphine Adverse Reaction (Verified 02/03/21 12:53) Hives Home Medications: Metoprolol Tartrate 25 mg PO BID 11/09/20 [History] hydrOXYzine HCL [Hydroxyzine HCl] 10 mg PO QID PRN 11/09/20 [History] Amoxicillin 250 mg/5 ml [Amoxil 250 mg/5 ml] 500 mg PO TID 05/18/21 [History] Hx Tetanus, Diphtheria Vaccination/Date Given: Yes Hx Influenza Vaccination/Date Given: No Hx Pneumococcal Vaccination/Date Given: No Immunizations Up to Date: Yes Travel Risk - International Travel Have you traveled outside of the country in past 3 weeks: No - Coronavirus Screening Are you exhibiting any of the following symptoms?: Yes Symptoms: Cough: New Onset, Shortness of Breath, Vomiting/Diarrhea Close contact with a COVID-19 positive Pt in past 14-21 Days: No - Vaccine Status Have you recieved a Covid-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: No - Review of Systems Constitutional: Fever, Chills, Fatigue, Weakness Eyes: No Symptoms Ears, Nose, & Throat: No Symptoms Respiratory: Cough Cardiac: No Symptoms Abdominal/Gastrointestinal: Abdominal Pain, Nausea, Vomiting, Diarrhea Genitourinary Symptoms: No Symptoms Musculoskeletal: Myalgias Neurological: No Symptoms Psychological: No Symptoms Endocrine: No Symptoms Hematologic/Lymphatic: No Symptoms Immunological/Allergic: No Symptoms - Past Medical History Pertinent Past Medical History: Yes Neurological History: No Pertinent History ENT History: No Pertinent History Cardiac History: Arrhythmia, Hypertension, Other Respiratory History: No Pertinent History Endocrine Medical History: No Pertinent History Musculoskeletal History: No Pertinent History GI Medical History: No Pertinent History History: No Pertinent History Psycho-Social History: Anxiety, Depression Female Reproductive Disorders: No Pertinent History Other Medical History: kidney stones; a-fib, lupus - Past Surgical History Past Surgical History: Yes Neuro Surgical History: No Pertinent History Cardiac: No Pertinent History Respiratory: No Pertinent History Gastrointestinal: Appendectomy Genitourinary: No Pertinent History Musculoskeletal: No Pertinent History Female Surgical History: Dilation & Curettage, Section, Tubal Ligation Other Surgical History: D&C, states ultrasound and stress showed irreg. heartbea t and chest pain in past few months, facilities officer unable to find irregular heartbeat. tubal 12/03/15 - Social History Smoking Status: Former smoker How long have you smoked: 12 Exposure to second hand smoke: Yes Drug Use: none Patient Lives Alone: No Significant Family History: no pertinent family hx - Female History Hx Last Menstrual Period: 05/02/2021 Hx Now: (tubal) - Nursing Vital Signs Nursing Vital Signs: Initial Vital Signs Temperature 97.8 F 05/18/21 13:55 Pulse Rate 94 H 05/18/21 13:55 Respiratory Rate 24 05/18/21 13:55 Blood Pressure 128/80 05/18/21 13:55 O2 Sat by Pulse Oximetry 99 05/18/21 13:55 Pain Scale Pain Intensity 4 - Physical Exam General Appearance: no apparent distress, alert Eye Exam: PERRL/EOMI, eyes nml inspection Ears, Nose, Throat Exam: TMs normal, pharyngeal erythema Neck Exam: normal inspection, non-tender, full range of motion Respiratory Exam: normal breath sounds, lungs clear Cardiovascular Exam: regular rate/rhythm, normal heart sounds Gastrointestinal/Abdomen Exam: soft, normal bowel sounds, tenderness (Minimal generalized), No guarding, No rebound Back Exam: normal inspection, normal range of motion, No CVA tenderness Extremity Exam: normal inspection, normal range of motion Neurologic Exam: alert, oriented x 3, cooperative Skin Exam: normal color SpO2 Interpretation: normal SpO2: 100 O2 Delivery: Room Air Ordered Tests: Active Orders 24 hr Category Date Time Status IV Insertion STAT Care 05/18/21 14:36 Active CBC W DIFF Stat Lab 05/18/21 13:40 Completed CMP Stat Lab 05/18/21 13:40 Completed LIPASE Stat Lab 05/18/21 13:40 Completed MAG [MAGNESIUM] Stat Lab 05/18/21 13:40 Completed UA W/RFX UR CULTURE Stat Lab 05/18/21 14:36 Ordered Medication Summary Generic Name Dose Route Start Last Admin Trade Name Freq PRN Reason Stop Dose Admin Sodium Chloride 1,000 mls @ 999 mls/hr 05/18/21 14:36 05/18/21 14:45 Sodium Chloride 0.9% 1000 Ml IV 05/18/21 15:36 999 mls/hr .Q1H1M STA Administration Discontinued Medications Generic Name Dose Route Start Last Admin Trade Name Freq PRN Reason Stop Dose Admin Sodium Chloride Confirm 05/18/21 14:41 Sodium Chloride 0.9% 1000 Ml Administered 05/18/21 14:42 Dose 1,000 mls @ ud .ROUTE .STK-MED ONE Ondansetron HCl 4 mg 05/18/21 14:36 05/18/21 14:45 Ondansetron Hcl 4 Mg/2 Ml Vial IV 05/18/21 14:37 4 mg STAT ONE Administration Ondansetron HCl Confirm 05/18/21 14:41 Ondansetron Hcl 4 Mg/2 Ml Vial Administered 05/18/21 14:42 Dose 4 mg .ROUTE .STK-MED ONE Lab/Rad Data: Laboratory Result Diagrams 05/18/21 13:40 05/18/21 13:40 Laboratory Results 05/18/21 05/18/21 05/18/21 Range/Units 13:40 13:40 13:40 WBC 2.7 L (4.0-10.5) K/mm3 RBC 4.77 (4.1-5.4) M/mm3 Hgb 12.3 (12.0-16.0) gm/dl Hct 39.5 (35-47) % MCV 82.8 (78-100) fl MCH 25.8 L (26-32) pg MCHC 31.1 L (32-36) g/dl RDW 15.8 H (11.5-14.0) % Plt Count 263 (150-450) K/mm3 MPV 10.1 (7.5-11.0) fl Gran % 38.9 (36.0-66.0) % Eos # (Auto) 0.04 (0-0.5) Absolute Lymphs (auto) 1.33 (1.0-4.6) Absolute Monos (auto) 0.29 (0.0-1.3) Lymphocytes % 48.9 H (24.0-44.0) % Monocytes % 10.7 (0.0-12.0) % Eosinophils % 1.5 (0.00-5.0) % Basophils % 0.0 (0.0-0.4) % Absolute Granulocytes 1.06 L (1.4-6.9) Basophils # 0 (0-0.4) Sodium 139 (137-145) mmol/L Potassium 3.7 (3.5-5.1) mmol/L Chloride 107 (98-107) mmol/L Carbon Dioxide 20 L (22-30) mmol/L Anion Gap 14.9 (5-15) MEQ/L BUN 9 (7-17) mg/dL Creatinine 0.61 (0.52-1.04) mg/dL Estimated GFR > 60.0 ML/MIN Glucose 94 (74-106) mg/dL Calcium 9.3 (8.4-10.2) mg/dL Magnesium 1.9 (1.6-2.3) mg/dL Total Bilirubin 0.20 (0.2-1.3) mg/dL AST 24 (14-36) U/L ALT 21 (0-35) U/L Alkaline Phosphatase 75 (38-126) U/L Serum Total Protein 7.8 (6.3-8.2) g/dL Albumin 4.4 (3.5-5.0) g/dL Lipase 120 (23-300) U/L - Progress Progress: improved Progress Note: 05/18/21 35 years old is evaluated for nausea vomiting diarrhea with minimal abdominal discomfort. No peritoneal signs. Normoactive bowel sounds. Nontoxic appearance. Baseline work-up grossly unremarkable. Given fluid bolus and Zofran, feeling better. Symptoms could be viral etiology gastroenteritis, recommended supportive care and Zofran, outpatient follow-up. Discussed signs symptoms of worsening needing return to ER which she seems understanding. Counseled pt/family regarding: lab results, diagnosis, need for follow-up - Departure Departure Disposition: Home Clinical Impression: Viral gastroenteritis Condition: Stable Critical Care Time: No Referrals: ARNOLD CAMARILLO, TINA [Primary Care Provider] - Follow up/PCP as directed (1-2 days for reevaluation) Instructions: Viral Gastroenteritis, Adult (DC) Additional Instructions: Drink plenty of fluids take Zofran as needed. Take Tylenol as needed for aches and pains. Follow-up with your primary care for reevaluation. Return to ER for worsening abdominal pain, intractable vomiting/diarrhea/fever chills etc. Prescriptions: ondansetron HCL [Zofran] 4 mg PO Q6H PRN #7 tablet PRN Reason: Nausea
[2021-05-18 15:53] LABS: Appearance CLOUDY (CLEAR); Bacteria FEW /HPF (NEGATIVE); Bilirubin NEGATIVE (NEGATIVE); Blood SMALL Ery/ul (0-5); Epithelial Cells FEW /HPF (FEW); Glucose NEGATIVE (NEGATIVE); Ketones NEGATIVE (NEGATIVE); Leukocyte Esterase NEGATIVE (NEGATIVE); Mucus SLIGHT /HPF (NEGATIVE); Nitrite NEGATIVE (NEGATIVE); Protein,Urine Dip NEGATIVE (Negative); Specific Gravity 1.015 (1.005-1.025); Urobilinogen NEGATIVE mg/dL (0-1)
[2021-05-18 17:02] VITALS: BP 105/67; PULSE 79; O2SAT 99
== END 2021-05-18 17:07 | disposition home or self-care (01) ==
LOC: ED 13:50
DX: A08.4 Viral intestinal infection, unspecified (principal); R53.1 Weakness; R10.84 Generalized abdominal pain; R11.2 Nausea with vomiting, unspecified; Z86.16 Personal history of COVID-19; I10 Essential (primary) hypertension
CPT/HCPCS: 36000; 36415; 80053; 81001; 83690; 83735; 85025; 96360; 96374; 99284; J2405

== ENCOUNTER 2021-06-26 10:05 | Emergency (ER) | payer OTHER ==
[2021-06-26] MEDS ORDERED: Lactated Ringers 1,000 ML IV ONE ×2 (10:36→10:43)
[2021-06-26 10:55] LABS: Absolute Neutrophil Ct (ANC) 3.85 (1.4-6.9); Basophil (Absolute #) 0.02 (0-0.4); Eosinophil % 1.6 % (0.00-5.0); Eosinophil (Absolute #) 0.11 (0-0.5); Hematocrit 38.3 % (35-47); Lymphocyte (Absolute #) 2.34 (1.0-4.6); Lymphocytes % 34.5 % (24.0-44.0); Mean Cell Volume 83.8 fl (78-100); Mean Corpuscular Hemoglobin 26.3 pg (26-32); Mean Corpuscular Hgb Concent. 31.3 g/dl (32-36); Mean Platelet Volume 9.5 fl (7.5-11.0); Monocyte (Absolute #) 0.47 (0.0-1.3); Monocytes % 6.9 % (0.0-12.0); Neutrophil % 56.7 % (36.0-66.0); Platelet Count 312 K/mm3 (150-450); Red Blood Count 4.57 M/mm3 (4.1-5.4); Red Cell Distribution Width 16.9 % (11.5-14.0); White Blood Count 6.8 K/mm3 (4.0-10.5)
[2021-06-26 10:57] LABS: ALBUMIN 4.1 g/dL (3.5-5.0); ALKALINE PHOSPHATASE 73 U/L (38-126); ANION GAP 12.3 MEQ/L (5-15); BLOOD UREA NITROGEN 9 mg/dL (7-17); CHLORIDE 107 mmol/L (98-107); Calcium 9.1 mg/dL (8.4-10.2); Carbon Dioxide 23 mmol/L (22-30); Creatinine 1 0.56 mg/dL (0.52-1.04); EST GLOMERULAR FILTRATION RATE > 60.0 ML/MIN; Glucose 99 mg/dL (74-106); Potassium 3.7 mmol/L (3.5-5.1); SGOT/AST 18 U/L (14-36); SGPT/ALT 18 U/L (0-35); SODIUM 139 mmol/L (137-145); Total Protein 7.7 g/dL (6.3-8.2)
[2021-06-26 11:36] LABS: INFLUENZA A NEGATIVE (NEGATIVE); INFLUENZA B NEGATIVE (NEGATIVE)
--- NOTE | 2021-06-26 11:55 | ERPHSYRPT ---
- History of Present Illness Time Seen by Provider: 06/26/21 11:03 Source: patient Exam Limitations: no limitations Patient Subjective Stated Complaint: Pt states "[facility] sent me over here because I have not peed since yesterday morining. I have covid." Triage Nursing Assessment: Pt presented aelrt and oriented X3, skin wpd Pt ambulates with an upright steady gait, able to speak in clear full sentences. Pt reseting comforbly on the bed. Physician History: 36-year-old female presented in the ER with chief complaint of generalized weakness fatigue and tiredness for almost 1 week with a positive COVID-19. Patient reports having nausea with vomiting and decreased oral intake without any abdominal pain or diarrhea. Patient was seen at [facility] and sent in here because of decreased urine output. Denies any chest pain palpitations or shortness of breath. Currently patient is afebrile. Timing/Duration: week(s) (1), gradual onset Severity: moderate Modifying Factors: Improves With: nothing Associated Symptoms: nausea, vomiting, fever, loss of appetite, malaise, weakness, No abdominal pain, No shortness of breath, No cough Allergies/Adverse Reactions: ceftriaxone [From Rocephin] Allergy (Severe, Verified 05/18/21 14:01) hives and swelling hydromorphone HCl [From Dilaudid] Allergy (Severe, Verified 02/03/21 12:53) Anaphylactic Reaction azithromycin [From Zithromax] Allergy (Intermediate, Verified 02/03/21 12:53) Hives erythromycin base [Erythromycin Base] Allergy (Mild, Verified 02/03/21 12:53) Tightness of Throat clonazepam [From Klonopin] Allergy (Verified 02/03/21 12:53) Swelling clonidine Allergy (Verified 02/03/21 12:53) Hives diphenhydramine [From Benadryl] Adverse Reaction (Intermediate, Verified 02/03/21 12:53) Vomiting lorazepam [From Ativan] Adverse Reaction (Verified 02/03/21 12:53) Swelling of Tongue and Lips morphine Adverse Reaction (Verified 02/03/21 12:53) Hives Home Medications: Metoprolol Tartrate 25 mg PO BID 11/09/20 [History] hydrOXYzine HCL [Hydroxyzine HCl] 10 mg PO QID PRN 11/09/20 [History] Hx Tetanus, Diphtheria Vaccination/Date Given: Yes Hx Influenza Vaccination/Date Given: No Hx Pneumococcal Vaccination/Date Given: No Immunizations Up to Date: Yes Travel Risk - International Travel Have you traveled outside of the country in past 3 weeks: No - Coronavirus Screening Are you exhibiting any of the following symptoms?: No Close contact with a COVID-19 positive Pt in past 14-21 Days: No - Vaccine Status Have you recieved a Covid-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: No - Review of Systems Constitutional: Fatigue, Weakness Eyes: No Symptoms Ears, Nose, & Throat: No Symptoms Respiratory: No Symptoms Cardiac: No Symptoms Abdominal/Gastrointestinal: Nausea, Vomiting Genitourinary Symptoms: No Symptoms Musculoskeletal: Myalgias Skin: No Symptoms Neurological: No Symptoms Endocrine: No Symptoms Hematologic/Lymphatic: No Symptoms Immunological/Allergic: No Symptoms - Past Medical History Pertinent Past Medical History: Yes Neurological History: No Pertinent History ENT History: No Pertinent History Cardiac History: Arrhythmia, Hypertension, Other Respiratory History: No Pertinent History Endocrine Medical History: No Pertinent History Musculoskeletal History: No Pertinent History GI Medical History: No Pertinent History History: No Pertinent History Psycho-Social History: Anxiety, Depression Female Reproductive Disorders: No Pertinent History Other Medical History: kidney stones; a-fib, lupus - Past Surgical History Past Surgical History: Yes Neuro Surgical History: No Pertinent History Cardiac: No Pertinent History Respiratory: No Pertinent History Gastrointestinal: Appendectomy Genitourinary: No Pertinent History Musculoskeletal: No Pertinent History Female Surgical History: Dilation & Curettage, Section, Tubal Ligation Other Surgical History: D&C, states ultrasound and stress showed irreg. heartbeat and chest pain in past few months, rotoformer backtender unable to find irregular heartbeat. tubal 12/03/15 - Social History Smoking Status: Former smoker How long have you smoked: 12 Exposure to second hand smoke: Yes Drug Use: none Patient Lives Alone: No Significant Family History: no pertinent family hx - Female History Hx Last Menstrual Period: 05/30/2020 Hx Now: No (tubal) - Nursing Vital Signs Nursing Vital Signs: Initial Vital Signs Temperature 98.9 F 06/26/21 10:14 Pulse Rate 74 06/26/21 10:14 Respiratory Rate 22 06/26/21 10:14 Blood Pressure 126/86 06/26/21 10:14 O2 Sat by Pulse Oximetry 99 06/26/21 10:14 Pain Scale Pain Intensity 4 - Physical Exam General Appearance: no apparent distress, alert Eye Exam: PERRL/EOMI, eyes nml inspection Ears, Nose, Throat Exam: normal ENT inspection, TMs normal, pharynx normal Neck Exam: normal inspection, non-tender, supple, full range of motion Respiratory Exam: normal breath sounds, lungs clear Cardiovascular Exam: regular rate/rhythm, normal heart sounds Gastrointestinal/Abdomen Exam: soft, normal bowel sounds, No tenderness Back Exam: normal inspection, normal range of motion Extremity Exam: normal inspection, normal range of motion Skin Exam: normal color SpO2 Interpretation: normal SpO2: 100 O2 Delivery: Room Air Ordered Tests: Active Orders 24 hr Category Date Time Status IV Insertion STAT Care 06/26/21 10:48 Active CBC W DIFF Stat Lab 06/26/21 10:40 Completed CMP Stat Lab 06/26/21 10:40 Completed INFLUENZA A+B CHARO Stat Lab 06/26/21 11:00 Completed UA W/RFX UR CULTURE Stat Lab 06/26/21 11:54 Completed Medication Summary Discontinued Medications Generic Name Dose Route Start Last Admin Trade Name Soloq PRN Reason Stop Dose Admin Lactated Ringer's 1,000 mls @ 999 mls/hr 06/26/21 10:36 06/26/21 11:53 Lactated Ringers IV 06/26/21 11:36 Infused .Q1H1M ONE Infusion Lactated Ringer's Confirm 06/26/21 10:43 Lactated Ringers Administered 06/26/21 10:44 Dose 1,000 mls @ ud IV .STK-MED ONE Lab/Rad Data: Laboratory Result Diagrams 06/26/21 10:40 06/26/21 10:40 Laboratory Results 06/26/21 06/26/21 06/26/21 Range/Units 11:54 11:00 10:40 WBC (4.0-10.5) K/mm3 RBC (4.1-5.4) M/mm3 Hgb (12.0-16.0) gm/dl Hct (35-47) % MCV (78-100) fl MCH (26-32) pg MCHC (32-36) g/dl RDW (11.5-14.0) % Plt Count (150-450) K/mm3 MPV (7.5-11.0) fl Gran % (36.0-66.0) % Eos # (Auto) (0-0.5) Absolute Lymphs (auto) (1.0-4.6) Absolute Monos (auto) (0.0-1.3) Lymphocytes % (24.0-44.0) % Monocytes % (0.0-12.0) % Eosinophils % (0.00-5.0) % Basophils % (0.0-0.4) % Absolute Granulocytes (1.4-6.9) Basophils # (0-0.4) Sodium 139 (137-145) mmol/L Potassium 3.7 (3.5-5.1) mmol/L Chloride 107 (98-107) mmol/L Carbon Dioxide 23 (22-30) mmol/L Anion Gap 12.3 (5-15) MEQ/L BUN 9 (7-17) mg/dL Creatinine 0.56 (0.52-1.04) mg/dL Estimated GFR > 60.0 ML/MIN Glucose 99 (74-106) mg/dL Calcium 9.1 (8.4-10.2) mg/dL Total Bilirubin 0.40 (0.2-1.3) mg/dL AST 18 (14-36) U/L ALT 18 (0-35) U/L Alkaline Phosphatase 73 (38-126) U/L Serum Total Protein 7.7 (6.3-8.2) g/dL Albumin 4.1 (3.5-5.0) g/dL Urine Color YELLOW (YELLOW) Urine Appearance CLOUDY (CLEAR) Urine pH 8.0 (5-6) Ur Specific [place] 1.009 (1.005-1.025) Urine Protein NEGATIVE (Negative) Urine Ketones NEGATIVE (NEGATIVE) Urine Blood NEGATIVE (0-5) Thang/ul Urine Nitrite NEGATIVE (NEGATIVE) Urine Bilirubin NEGATIVE (NEGATIVE) Urine Urobilinogen NEGATIVE (0-1) mg/dL Ur Leukocyte Esterase NEGATIVE (NEGATIVE) Urine WBC (Auto) 6-10 (0-5) /HPF Urine RBC (Auto) 3-5 (0-2) /HPF U Epithel Cells (Auto) MODERATE (FEW) /HPF Urine Bacteria (Auto) FEW (NEGATIVE) /HPF Urine Culture Reflexed NO (NO) Urine Glucose NEGATIVE (NEGATIVE) mg/dL Influenza Type A Ag NEGATIVE (NEGATIVE) Influenza Type B Ag NEGATIVE (NEGATIVE) 06/26/21 Range/Units 10:40 WBC 6.8 (4.0-10.5) K/mm3 RBC 4.57 (4.1-5.4) M/mm3 Hgb 12.0 (12.0-16.0) gm/dl Hct 38.3 (35-47) % MCV 83.8 (78-100) fl MCH 26.3 (26-32) pg MCHC 31.3 L (32-36) g/dl RDW 16.9 H (11.5-14.0) % Plt Count 312 (150-450) K/mm3 MPV 9.5 (7.5-11.0) fl Gran % 56.7 (36.0-66.0) % Eos # (Auto) 0.11 (0-0.5) Absolute Lymphs (auto) 2.34 (1.0-4.6) Absolute Monos (auto) 0.47 (0.0-1.3) Lymphocytes % 34.5 (24.0-44.0) % Monocytes % 6.9 (0.0-12.0) % Eosinophils % 1.6 (0.00-5.0) % Basophils % 0.3 (0.0-0.4) % Absolute Granulocytes 3.85 (1.4-6.9) Basophils # 0.02 (0-0.4) Sodium (137-145) mmol/L Potassium (3.5-5.1) mmol/L Chloride (98-107) mmol/L Carbon Dioxide (22-30) mmol/L Anion Gap (5-15) MEQ/L BUN (7-17) mg/dL Creatinine (0.52-1.04) mg/dL Estimated GFR ML/MIN Glucose (74-106) mg/dL Calcium (8.4-10.2) mg/dL Total Bilirubin (0.2-1.3) mg/dL AST (14-36) U/L ALT (0-35) U/L Alkaline Phosphatase (38-126) U/L Serum Total Protein (6.3-8.2) g/dL Albumin (3.5-5.0) g/dL Urine Color (YELLOW) Urine Appearance (CLEAR) Urine pH (5-6) Ur Specific [place] (1.005-1.025) Urine Protein (Negative) Urine Ketones (NEGATIVE) Urine Blood (0-5) Thang/ul Urine Nitrite (NEGATIVE) Urine Bilirubin (NEGATIVE) Urine Urobilinogen (0-1) mg/dL Ur Leukocyte Esterase (NEGATIVE) Urine WBC (Auto) (0-5) /HPF Urine RBC (Auto) (0-2) /HPF U Epithel Cells (Auto) (FEW) /HPF Urine Bacteria (Auto) (NEGATIVE) /HPF Urine Culture Reflexed (NO) Urine Glucose (NEGATIVE) mg/dL Influenza Type A Ag (NEGATIVE) Influenza Type B Ag (NEGATIVE) - Progress Progress: improved Progress Note: 06/26/21 She is given fluid bolus, on reevaluation feeling better. Normal white count, grossly unremarkable chemistries. No UTI. Would give her Zofran to go home and recommended increase hydration. Discussed signs symptoms of worsening needing return to ER which she seems understanding. Stable for discharge. Counseled pt/family regarding: lab results, diagnosis, need for follow-up - Departure Departure Disposition: Home Clinical Impression: Generalized weakness, Viral syndrome Condition: Stable Critical Care Time: No Referrals: ARNOLD CAMARILLO, TINA [Primary Care Provider] - Follow up/PCP as directed (In 2 days for reevaluation) Instructions: Nausea and Vomiting, Adult (DC), Viral Syndrome (DC) Additional Instructions: Take Tylenol as needed for aches and pains. Drink plenty of fluids. Take Zofran as needed for nausea and vomiting. Follow-up with primary care physician for reevaluation. Return to ER for any worsening. Prescriptions: Ondansetron ODT 4 MG [Zofran Odt 4 mg] 1 ea PO QIDPRN PRN #7 tablet PRN Reason: n/v
[2021-06-26 12:09] VITALS: PULSE 66
[2021-06-26 12:44] LABS: Appearance CLOUDY (CLEAR); Bacteria FEW /HPF (NEGATIVE); Bilirubin NEGATIVE (NEGATIVE); Blood NEGATIVE Ery/ul (0-5); Epithelial Cells MODERATE /HPF (FEW); Glucose NEGATIVE (NEGATIVE); Ketones NEGATIVE (NEGATIVE); Leukocyte Esterase NEGATIVE (NEGATIVE); Nitrite NEGATIVE (NEGATIVE); Protein,Urine Dip NEGATIVE (Negative); Specific Gravity 1.009 (1.005-1.025); Urobilinogen NEGATIVE mg/dL (0-1)
[2021-06-26 13:04] VITALS: BP 119/80
[2021-06-26 13:30] VITALS: O2SAT 100
== END 2021-06-26 13:40 | disposition home or self-care (01) ==
LOC: ED 10:05
DX: U07.1 COVID-19 (principal); R53.1 Weakness; R53.83 Other fatigue; R11.2 Nausea with vomiting, unspecified; I10 Essential (primary) hypertension
CPT/HCPCS: 36000; 36415; 80053; 81001; 85025; 87400; 96360; 99284

== ENCOUNTER 2021-07-11 18:14 | Emergency (ER) | payer OTHER ==
--- NOTE | 2021-07-11 18:38 | ERPHSYRPT ---
- History of Present Illness Source: patient Exam Limitations: no limitations Patient Subjective Stated Complaint: pt reports that her hand was crushed in the automated drink dispenser at work, pt states that the pain is now traveling up her arm. pt denies any other injury at this time. Triage Nursing Assessment: pt is aox3, pupils perrl, afebrile, resps easy and non labored, radial pulses strong and equal, cap refill < 3 seconds, pt skin pink warm dry. limited ROM to R hand d/t pain. sensation intact. no obvious injury or deformity. Occurred: just prior to arrival Method of Injury: direct blow Quality: constant Severity of Pain-Max: moderate Severity of Pain-Current: moderate Extremities Pain Location: wrist: right, hand: right Modifying Factors: Improves With: cold therapy Associated Symptoms: none Hx Tetanus, Diphtheria Vaccination/Date Given: Yes Hx Influenza Vaccination/Date Given: No Hx Pneumococcal Vaccination/Date Given: No Immunizations Up to Date: Yes <VITO STEWART - Last Filed: 07/11/21 18:45> <DARSHAN MEDINA - Last Filed: 07/11/21 19:22> - History of Present Illness Time Seen by Provider: 07/11/21 18:33 Physician History: pt reports that her hand was crushed in the automated drink dispenser at work, pt states that the pain is now traveling up her arm. pt denies any other injury at this time. (TERRY,VITO) Allergies/Adverse Reactions: ceftriaxone [From Rocephin] Allergy (Severe, Verified 07/11/21 18:29) hives and swelling hydromorphone HCl [From Dilaudid] Allergy (Severe, Verified 07/11/21 18:29) Anaphylactic Reaction azithromycin [From Zithromax] Allergy (Intermediate, Verified 07/11/21 18:29) Hives erythromycin base [Erythromycin Base] Allergy (Mild, Verified 07/11/21 18:29) Tightness of Throat clonazepam [From Klonopin] Allergy (Verified 07/11/21 18:29) Swelling clonidine Allergy (Verified 07/11/21 18:29) Hives diphenhydramine [From Benadryl] Adverse Reaction (Intermediate, Verified 07/11/21 18:29) Vomiting lorazepam [From Ativan] Adverse Reaction (Verified 07/11/21 18:29) Swelling of Tongue and Lips morphine Adverse Reaction (Verified 07/11/21 18:29) Hives Home Medications: Metoprolol Tartrate 25 mg PO BID 11/09/20 [History] hydrOXYzine HCL [Hydroxyzine HCl] 10 mg PO QID PRN 11/09/20 [History] Travel Risk - International Travel Have you traveled outside of the country in past 3 weeks: No - Coronavirus Screening Are you exhibiting any of the following symptoms?: No Close contact with a COVID-19 positive Pt in past 14-21 Days: No - Vaccine Status Have you recieved a Covid-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: No <TERRY,VITO - Last Filed: 07/11/21 18:45> - Review of Systems Constitutional: No Symptoms Eyes: No Symptoms Ears, Nose, & Throat: No Symptoms Respiratory: No Symptoms Cardiac: No Symptoms Abdominal/Gastrointestinal: No Symptoms Genitourinary Symptoms: No Symptoms Musculoskeletal: Joint Redness, Joint Pain, Joint Swelling Skin: No Symptoms Neurological: No Symptoms Psychological: No Symptoms <TERRY,VITO - Last Filed: 07/11/21 18:45> - Past Medical History Pertinent Past Medical History: Yes Neurological History: No Pertinent History ENT History: No Pertinent History Cardiac History: Arrhythmia, Hypertension, Other Respiratory History: No Pertinent History Endocrine Medical History: No Pertinent History Musculoskeletal History: No Pertinent History GI Medical History: No Pertinent History History: No Pertinent History Psycho-Social History: Anxiety, Depression Female Reproductive Disorders: No Pertinent History Other Medical History: kidney stones; a-fib, lupus - Past Surgical History Past Surgical History: Yes Neuro Surgical History: No Pertinent History Cardiac: No Pertinent History Respiratory: No Pertinent History Gastrointestinal: Appendectomy Genitourinary: No Pertinent History Musculoskeletal: No Pertinent History Female Surgical History: Dilation & Curettage, Section, Tubal Ligation Other Surgical History: D&C, states ultrasound and stress showed irreg. heartbeat and chest pain in past few months, [employer] of training [employer] development unable to find irregular heartbeat. tubal 12/03/15 - Social History Smoking Status: Never smoker How long have you smoked: 12 Exposure to second hand smoke: Yes Drug Use: none Patient Lives Alone: No Significant Family History: no pertinent family hx - Female History Hx Now: No <TERRY,VITO - Last Filed: 07/11/21 18:45> - Physical Exam General Appearance: no apparent distress Eyes, Ears, Nose, Throat Exam: normal ENT inspection Neck Exam: normal inspection Cardiovascular/Respiratory Exam: chest non-tender Abdominal Exam: non-tender Back Exam: normal inspection Shoulder Exam: normal inspection Elbow/Forearm Exam: normal inspection Wrist Exam: bone tenderness, deformity, soft tissue tenderness, swelling Hand Exam: limited ROM, soft tissue tenderness Neuro/Tendon Exam: normal sensation SpO2: 100 <VITO STEWART - Last Filed: 07/11/21 18:45> - Nursing Vital Signs Nursing Vital Signs: Initial Vital Signs Temperature 97.7 F 07/11/21 18:21 Pulse Rate 86 07/11/21 18:21 Respiratory Rate 18 07/11/21 18:21 Blood Pressure 126/89 07/11/21 18:21 O2 Sat by Pulse Oximetry 100 07/11/21 18:21 Pain Scale Pain Intensity 8 - Course Nursing assessment & vital signs reviewed: Yes - Radiology Exams Hand X-ray Interpretation: Reviewed by me Wrist X-ray Interpretation: Reviewed by me <VITO STEWART - Last Filed: 07/11/21 18:45> - Course Nursing assessment & vital signs reviewed: Yes - Radiology Exams Hand X-ray Interpretation: Reviewed by me, Negative <DARSHAN MEDINA - Last Filed: 07/11/21 19:22> Ordered Tests: Active Orders 24 hr Category Date Time Status HAND (2 VIEW) Stat Exams 07/11/21 19:08 Taken WRIST (MIN 3 VIEWS) Stat Exams 07/11/21 19:08 Taken - Progress Progress: unchanged <DARSHAN MEDINA - Last Filed: 07/11/21 19:22> - Progress Progress Note: 07/11/21 19:16 Patient was informed that the x-rays interpreted by me were negative she was going to be put in a splint for 2 to 3 days she is to follow-up with her employer's physician of choice for work-related injury if her pain is not better in 2 to 3 days. (DARSHAN MEDINA) <VITO STEWART - Last Filed: 07/11/21 18:45> - Departure Departure Disposition: Home Critical Care Time: No <DARSHAN MEDINA - Last Filed: 07/11/21 19:22> - Departure Clinical Impression: Contusion of right hand Condition: Stable Referrals: ERNESTO CRUMP NP [Primary Care Provider] - Follow up/PCP as directed Instructions: Hand Pain (DC) Prescriptions: Tramadol HCl 50 mg [Ultram 50 mg] 50 mg PO Q6H 3 Days #12 tablet
[2021-07-11 19:47] VITALS: BP 121/78; PULSE 74; O2SAT 99
--- NOTE | 2021-07-12 08:38 | XRAY ---
Indication: Crush injury. Comparison: None 3 view right wrist obtained. No bony, articular, or soft tissue abnormalities.
--- NOTE | 2021-07-12 08:48 | XRAY ---
Indication: Crush injury. Comparison: None 2 view right hand obtained. No bony, articular, or soft tissue abnormalities.
== END 2021-07-11 19:47 | disposition home or self-care (01) ==
LOC: ED 18:14
DX: S60.221A Contusion of right hand, initial encounter (principal); W31.89XA Contact with other specified machinery, initial encounter; Y99.0 Civilian activity done for income or pay; I10 Essential (primary) hypertension; Z79.891 Long term (current) use of opiate analgesic
CPT/HCPCS: 29125; 73110; 73120; 99283

== ENCOUNTER 2021-07-29 19:04 | Emergency (ER) | payer OTHER ==
[2021-07-29 19:44] LABS: Absolute Neutrophil Ct (ANC) 4.61 (1.4-6.9); Basophil (Absolute #) 0.01 (0-0.4); Eosinophil (Absolute #) 0.08 (0-0.5); Hematocrit 37.8 % (35-47); Hemoglobin 11.8 gm/dl (12.0-16.0); Lymphocyte (Absolute #) 2.93 (1.0-4.6); Lymphocytes % 35.8 % (24.0-44.0); Mean Corpuscular Hemoglobin 26.2 pg (26-32); Mean Corpuscular Hgb Concent. 31.2 g/dl (32-36); Mean Platelet Volume 9.5 fl (7.5-11.0); Monocyte (Absolute #) 0.55 (0.0-1.3); Monocytes % 6.7 % (0.0-12.0); Neutrophil % 56.4 % (36.0-66.0); Platelet Count 311 K/mm3 (150-450); Red Cell Distribution Width 16.9 % (11.5-14.0); White Blood Count 8.2 K/mm3 (4.0-10.5)
[2021-07-29 19:58] LABS: ALBUMIN 4.4 g/dL (3.5-5.0); ALKALINE PHOSPHATASE 67 U/L (38-126); ANION GAP 13.2 MEQ/L (5-15); BLOOD UREA NITROGEN 13 mg/dL (7-17); CHLORIDE 108 mmol/L (98-107); Calcium 9.3 mg/dL (8.4-10.2); Carbon Dioxide 21 mmol/L (22-30); Creatinine 1 0.71 mg/dL (0.52-1.04); EST GLOMERULAR FILTRATION RATE > 60.0 ML/MIN; Glucose 101 mg/dL (74-106); Potassium 3.4 mmol/L (3.5-5.1); SGOT/AST 22 U/L (14-36); SGPT/ALT 20 U/L (0-35); SODIUM 139 mmol/L (137-145); Total Protein 7.9 g/dL (6.3-8.2)
[2021-07-29 20:39] LABS: Appearance CLOUDY (CLEAR); Bacteria RARE /HPF (NEGATIVE); Bilirubin NEGATIVE (NEGATIVE); Blood NEGATIVE Ery/ul (0-5); Epithelial Cells FEW /HPF (FEW); Glucose NEGATIVE (NEGATIVE); Ketones NEGATIVE (NEGATIVE); Leukocyte Esterase NEGATIVE (NEGATIVE); Mucus MANY /HPF (NEGATIVE); Nitrite NEGATIVE (NEGATIVE); Protein,Urine Dip 30 (Negative); RBC 0-2 /HPF (0-2); Specific Gravity 1.028 (1.005-1.025); Urobilinogen NEGATIVE mg/dL (0-1); WBC 0-2 /HPF (0-5)
[2021-07-29 20:45] LABS: Amphetamine,Urine NEGATIVE (NEGATIVE); Barbiturate,Urine NEGATIVE (NEGATIVE); Benzodiazepine,Urine NEGATIVE (NEGATIVE); Cocaine,Urine NEGATIVE (NEGATIVE); Methadone,Urine NEGATIVE (NEGATIVE); Opiate,Urine NEGATIVE (NEGATIVE); PCP,Urine NEGATIVE (NEGATIVE); THC,Urine NEGATIVE (NEGATIVE)
--- NOTE | 2021-07-29 20:52 | ERPHSYRPT ---
- History of Present Illness Time Seen by Provider: 07/29/21 19:25 Source: patient Exam Limitations: no limitations Patient Subjective Stated Complaint: Patient arrived by EMS c/o chest pain that radiates from her chest to her left arm and shoulder. Describes pain as sharp and aching. Denies SOB. Medics state the original complaint from patient upon picking her up from her job was tachycardia/heart palpations with patient reporting a heart rate of 164. Heart rate was 106 per medics upon their arrival. Patient states, "I have been having flare ups of my afib with a fast heart rate ever since I was forced to get the COVID vaccine on Monday by my employer." Triage Nursing Assessment: Patient arrived by ambulance. No SOB noted. SKin tone normal, warm, dry. Heart rate noted to be regular upon auscultation with a rate of 94. Patient smile even with no facial droop noted. PERRL. She is alert and oriented and answering questions appropriately. Physician History: Patient 36-year-old female presents to our ED via EMS for evaluation of heart palpitations tachycardia. Patient has history of A. fib. Upon EMS arrival patient reported left-sided chest pain rating to her left arm and shoulder. No associated shortness of breath. Pain described as a sharp achy type sensation. Patient states that she had a Covid vaccination on Monday. Since then she has been experiencing intermittent heart palpitations. Patient took 2 aspirin this morning as per her normal regimen. No active chest pain at this time. Symptoms are mild to moderate in intensity. No specific worsening improving factors. Patient voices no other complaints concerns at this time. Timing/Duration: today Severity: moderate Modifying Factors: Improves With: nothing Associated Symptoms: denies symptoms Allergies/Adverse Reactions: ceftriaxone [From Rocephin] Allergy (Severe, Verified 07/29/21 19:15) hives and swelling hydromorphone HCl [From Dilaudid] Allergy (Severe, Verified 07/29/21 19:15) Anaphylactic Reaction azithromycin [From Zithromax] Allergy (Intermediate, Verified 07/29/21 19:15) Hives erythromycin base [Erythromycin Base] Allergy (Mild, Verified 07/29/21 19:15) Tightness of Throat clonazepam [From Klonopin] Allergy (Verified 07/29/21 19:15) Swelling clonidine Allergy (Verified 07/29/21 19:15) Hives diphenhydramine [From Benadryl] Adverse Reaction (Intermediate, Verified 07/29/21 19:15) Vomiting lorazepam [From Ativan] Adverse Reaction (Verified 07/29/21 19:15) Swelling of Tongue and Lips morphine Adverse Reaction (Verified 07/29/21 19:15) Hives Home Medications: Aspirin EC 81 mg [Ecotrin 81 mg] 2 tab PO DAILY 07/29/21 [History] Hx Tetanus, Diphtheria Vaccination/Date Given: Yes Hx Influenza Vaccination/Date Given: Yes Hx Pneumococcal Vaccination/Date Given: No Immunizations Up to Date: Yes Travel Risk - International Travel Have you traveled outside of the country in past 3 weeks: No - Coronavirus Screening Are you exhibiting any of the following symptoms?: Yes Symptoms: Headaches/Body Aches/Fatigue Close contact with a COVID-19 positive Pt in past 14-21 Days: No - Vaccine Status Have you recieved a Covid-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: Yes Seismograph Shooter: Third Age - Vaccination Dates Date of 2cond Vaccination (if applicable): Not yet - Review of Systems Constitutional: No Symptoms, No Fever, No Chills Eyes: No Symptoms Ears, Nose, & Throat: No Symptoms Respiratory: No Symptoms, No Cough, No Dyspnea Cardiac: No Symptoms, No Chest Pain, No Edema, No Syncope Abdominal/Gastrointestinal: No Symptoms, No Abdominal Pain, No Nausea, No Vomiting, No Diarrhea Genitourinary Symptoms: No Symptoms, No Dysuria Musculoskeletal: No Symptoms, No Back Pain, No Neck Pain Skin: No Symptoms, No Rash Neurological: No Symptoms, No Dizziness, No Focal Weakness, No Sensory Changes Psychological: No Symptoms Endocrine: No Symptoms Hematologic/Lymphatic: No Symptoms Immunological/Allergic: No Symptoms All Other Systems: Reviewed and Negative - Past Medical History Pertinent Past Medical History: Yes Neurological History: No Pertinent History ENT History: No Pertinent History Cardiac History: Arrhythmia, Hypertension, Other Respiratory History: No Pertinent History Endocrine Medical History: No Pertinent History Musculoskeletal History: No Pertinent History GI Medical History: No Pertinent History History: No Pertinent History Psycho-Social History: Anxiety, Depression Female Reproductive Disorders: No Pertinent History Other Medical History: kidney stones; a-fib, lupus - Past Surgical History Past Surgical History: Yes Neuro Surgical History: No Pertinent History Cardiac: No Pertinent History Respiratory: No Pertinent History Gastrointestinal: Appendectomy Genitourinary: No Pertinent History Musculoskeletal: No Pertinent History Female Surgical History: Dilation & Curettage, Section, Tubal Ligation Other Surgical History: D&C, states ultrasound and stress showed irreg. heartbeat and chest pain in past few months, ware server unable to find irregular heartbeat. tubal 12/03/15 - Social History Smoking Status: Former smoker How long have you smoked: 12 Exposure to second hand smoke: Yes Drug Use: none Patient Lives Alone: No Significant Family History: no pertinent family hx - Female History Hx Last Menstrual Period: Beginning of June Hx Now: No - Nursing Vital Signs Nursing Vital Signs: Initial Vital Signs Temperature 99.2 F 07/29/21 19:18 Pulse Rate 94 H 07/29/21 19:18 Respiratory Rate 19 07/29/21 19:18 Blood Pressure 146/87 07/29/21 19:18 O2 Sat by Pulse Oximetry 98 07/29/21 19:18 Pain Scale Pain Intensity 5 - Physical Exam General Appearance: no apparent distress, alert Eye Exam: PERRL/EOMI, eyes nml inspection Ears, Nose, Throat Exam: normal ENT inspection, TMs normal, pharynx normal, moist mucous membranes Neck Exam: normal inspection, non-tender, supple, full range of motion Respiratory Exam: normal breath sounds, lungs clear, airway intact, No chest tenderness, No respiratory distress Cardiovascular Exam: regular rate/rhythm, normal heart sounds, normal peripheral pulses Gastrointestinal/Abdomen Exam: soft, normal bowel sounds, No tenderness, No mass Back Exam: normal inspection, normal range of motion, No CVA tenderness, No vertebral tenderness Extremity Exam: normal inspection, normal range of motion, pelvis stable Neurologic Exam: alert, oriented x 3, cooperative, normal mood/affect, nml cerebellar function, nml station & gait, sensation nml, No motor deficits Skin Exam: normal color, warm, dry, No rash Lymphatic Exam: No adenopathy SpO2 Interpretation: normal SpO2: 96 O2 Delivery: Room Air - Course Nursing assessment & vital signs reviewed: Yes EKG Interpreted by Me: RATE (95), Sinus Rhythm, NORMAL AXIS, NORMAL INTERVALS - Radiology Exams Chest X-ray Interpretation: Reviewed by me (Clear lungs normal cardiac silhouette. Intact bony thorax.) Ordered Tests: Active Orders 24 hr Category Date Time Status CHEST 1 VIEW (PORTABLE) Stat Exams 07/29/21 22:12 Taken CBC W DIFF Stat Lab 07/29/21 19:35 Completed CMP Stat Lab 07/29/21 19:35 Completed D-DIMER QUANTITATIVE Stat Lab 07/29/21 19:35 Completed TROPONIN Q3H Lab 07/29/21 19:35 Completed TROPONIN Q3H Lab 07/29/21 22:05 Completed TROPONIN Q3H Lab 07/30/21 01:30 Ordered TROPONIN Q3H Lab 07/30/21 04:30 Ordered TROPONIN Q3H Lab 07/30/21 07:30 Ordered UA W/RFX UR CULTURE Stat Lab 07/29/21 19:59 Completed Urine Triage Profile Stat Lab 07/29/21 19:59 Completed Medication Summary Discontinued Medications Generic Name Dose Route Start Last Admin Trade Name Freq PRN Reason Stop Dose Admin Potassium Bicarbonate 50 meq 07/29/21 22:58 07/29/21 23:00 Potassium Bicarbonate 25 Meq Tab PO 07/29/21 22:59 50 meq STAT ONE Administration Potassium Bicarbonate Confirm 07/29/21 22:59 Potassium Bicarbonate 25 Meq Tab Administered 07/29/21 23:00 Dose 50 meq .ROUTE .STK-MED ONE Potassium Chloride 40 meq 07/29/21 22:32 07/29/21 23:03 Potassium Chloride 10 Meq Tablet PO 07/29/21 22:33 Not Given STAT ONE Potassium Chloride Confirm 07/29/21 22:52 Potassium Chloride 10 Meq Tablet Administered 07/29/21 22:53 Dose 40 meq PO .STK-MED ONE Lab/Rad Data: Laboratory Result Diagrams 07/29/21 19:35 07/29/21 19:35 Laboratory Results 07/29/21 07/29/21 07/29/21 Range/Units 22:05 19:59 19:59 WBC (4.0-10.5) K/mm3 RBC (4.1-5.4) M/mm3 Hgb (12.0-16.0) gm/dl Hct (35-47) % MCV (78-100) fl MCH (26-32) pg MCHC (32-36) g/dl RDW (11.5-14.0) % Plt Count (150-450) K/mm3 MPV (7.5-11.0) fl Gran % (36.0-66.0) % Eos # (Auto) (0-0.5) Absolute Lymphs (auto) (1.0-4.6) Absolute Monos (auto) (0.0-1.3) Lymphocytes % (24.0-44.0) % Monocytes % (0.0-12.0) % Eosinophils % (0.00-5.0) % Basophils % (0.0-0.4) % Absolute Granulocytes (1.4-6.9) Basophils # (0-0.4) D-Dimer (215-500) ng/mL Sodium (137-145) mmol/L Potassium (3.5-5.1) mmol/L Chloride (98-107) mmol/L Carbon Dioxide (22-30) mmol/L Anion Gap (5-15) MEQ/L BUN (7-17) mg/dL Creatinine (0.52-1.04) mg/dL Estimated GFR ML/MIN Glucose (74-106) mg/dL Calcium (8.4-10.2) mg/dL Total Bilirubin (0.2-1.3) mg/dL AST (14-36) U/L ALT (0-35) U/L Alkaline Phosphatase (38-126) U/L Troponin I < 0.012 (0.000-0.034) ng/mL Serum Total Protein (6.3-8.2) g/dL Albumin (3.5-5.0) g/dL Urine Color YELLOW (YELLOW) Urine Appearance CLOUDY (CLEAR) Urine pH 5.0 (5-6) Ur Specific [place] 1.028 (1.005-1.025) Urine Protein 30 (Negative) Urine Ketones NEGATIVE (NEGATIVE) Urine Blood NEGATIVE (0-5) Thang/ul Urine Nitrite NEGATIVE (NEGATIVE) Urine Bilirubin NEGATIVE (NEGATIVE) Urine Urobilinogen NEGATIVE (0-1) mg/dL Ur Leukocyte Esterase NEGATIVE (NEGATIVE) Urine WBC (Auto) 0-2 (0-5) /HPF Urine RBC (Auto) 0-2 (0-2) /HPF U Epithel Cells (Auto) FEW (FEW) /HPF Urine Bacteria (Auto) RARE (NEGATIVE) /HPF Urine Mucus (Auto) MANY (NEGATIVE) /HPF Urine Culture Reflexed NO (NO) Urine Glucose NEGATIVE (NEGATIVE) mg/dL Urine Opiates Level NEGATIVE (NEGATIVE) Ur Methadone NEGATIVE (NEGATIVE) Urine Barbiturates NEGATIVE (NEGATIVE) Ur Phencyclidine (PCP) NEGATIVE (NEGATIVE) Urine Amphetamine NEGATIVE (NEGATIVE) U Benzodiazepine Level NEGATIVE (NEGATIVE) Urine Cocaine NEGATIVE (NEGATIVE) Urine Marijuana (THC) NEGATIVE (NEGATIVE) 07/29/21 07/29/21 07/29/21 Range/Units 19:35 19:35 19:35 WBC (4.0-10.5) K/mm3 RBC (4.1-5.4) M/mm3 Hgb (12.0-16.0) gm/dl Hct (35-47) % MCV (78-100) fl MCH (26-32) pg MCHC (32-36) g/dl RDW (11.5-14.0) % Plt Count (150-450) K/mm3 MPV (7.5-11.0) fl Gran % (36.0-66.0) % Eos # (Auto) (0-0.5) Absolute Lymphs (auto) (1.0-4.6) Absolute Monos (auto) (0.0-1.3) Lymphocytes % (24.0-44.0) % Monocytes % (0.0-12.0) % Eosinophils % (0.00-5.0) % Basophils % (0.0-0.4) % Absolute Granulocytes (1.4-6.9) Basophils # (0-0.4) D-Dimer 417 (215-500) ng/mL Sodium 139 (137-145) mmol/L Potassium 3.4 L (3.5-5.1) mmol/L Chloride 108 H (98-107) mmol/L Carbon Dioxide 21 L (22-30) mmol/L Anion Gap 13.2 (5-15) MEQ/L BUN 13 (7-17) mg/dL Creatinine 0.71 (0.52-1.04) mg/dL Estimated GFR > 60.0 ML/MIN Glucose 101 (74-106) mg/dL Calcium 9.3 (8.4-10.2) mg/dL Total Bilirubin 0.30 (0.2-1.3) mg/dL AST 22 (14-36) U/L ALT 20 (0-35) U/L Alkaline Phosphatase 67 (38-126) U/L Troponin I < 0.012 (0.000-0.034) ng/mL Serum Total Protein 7.9 (6.3-8.2) g/dL Albumin 4.4 (3.5-5.0) g/dL Urine Color (YELLOW) Urine Appearance (CLEAR) Urine pH (5-6) Ur Specific [place] (1.005-1.025) Urine Protein (Negative) Urine Ketones (NEGATIVE) Urine Blood (0-5) Thang/ul Urine Nitrite (NEGATIVE) Urine Bilirubin (NEGATIVE) Urine Urobilinogen (0-1) mg/dL Ur Leukocyte Esterase (NEGATIVE) Urine WBC (Auto) (0-5) /HPF Urine RBC (Auto) (0-2) /HPF U Epithel Cells (Auto) (FEW) /HPF Urine Bacteria (Auto) (NEGATIVE) /HPF Urine Mucus (Auto) (NEGATIVE) /HPF Urine Culture Reflexed (NO) Urine Glucose (NEGATIVE) mg/dL Urine Opiates Level (NEGATIVE) Ur Methadone (NEGATIVE) Urine Barbiturates (NEGATIVE) Ur Phencyclidine (PCP) (NEGATIVE) Urine Amphetamine (NEGATIVE) U Benzodiazepine Level (NEGATIVE) Urine Cocaine (NEGATIVE) Urine Marijuana (THC) (NEGATIVE) 07/29/21 Range/Units 19:35 WBC 8.2 (4.0-10.5) K/mm3 RBC 4.50 (4.1-5.4) M/mm3 Hgb 11.8 L (12.0-16.0) gm/dl Hct 37.8 (35-47) % MCV 84.0 (78-100) fl MCH 26.2 (26-32) pg MCHC 31.2 L (32-36) g/dl RDW 16.9 H (11.5-14.0) % Plt Count 311 (150-450) K/mm3 MPV 9.5 (7.5-11.0) fl Gran % 56.4 (36.0-66.0) % Eos # (Auto) 0.08 (0-0.5) Absolute Lymphs (auto) 2.93 (1.0-4.6) Absolute Monos (auto) 0.55 (0.0-1.3) Lymphocytes % 35.8 (24.0-44.0) % Monocytes % 6.7 (0.0-12.0) % Eosinophils % 1.0 (0.00-5.0) % Basophils % 0.1 (0.0-0.4) % Absolute Granulocytes 4.61 (1.4-6.9) Basophils # 0.01 (0-0.4) D-Dimer (215-500) ng/mL Sodium (137-145) mmol/L Potassium (3.5-5.1) mmol/L Chloride (98-107) mmol/L Carbon Dioxide (22-30) mmol/L Anion Gap (5-15) MEQ/L BUN (7-17) mg/dL Creatinine (0.52-1.04) mg/dL Estimated GFR ML/MIN Glucose (74-106) mg/dL Calcium (8.4-10.2) mg/dL Total Bilirubin (0.2-1.3) mg/dL AST (14-36) U/L ALT (0-35) U/L Alkaline Phosphatase (38-126) U/L Troponin I (0.000-0.034) ng/mL Serum Total Protein (6.3-8.2) g/dL Albumin (3.5-5.0) g/dL Urine Color (YELLOW) Urine Appearance (CLEAR) Urine pH (5-6) Ur Specific [place] (1.005-1.025) Urine Protein (Negative) Urine Ketones (NEGATIVE) Urine Blood (0-5) Thang/ul Urine Nitrite (NEGATIVE) Urine Bilirubin (NEGATIVE) Urine Urobilinogen (0-1) mg/dL Ur Leukocyte Esterase (NEGATIVE) Urine WBC (Auto) (0-5) /HPF Urine RBC (Auto) (0-2) /HPF U Epithel Cells (Auto) (FEW) /HPF Urine Bacteria (Auto) (NEGATIVE) /HPF Urine Mucus (Auto) (NEGATIVE) /HPF Urine Culture Reflexed (NO) Urine Glucose (NEGATIVE) mg/dL Urine Opiates Level (NEGATIVE) Ur Methadone (NEGATIVE) Urine Barbiturates (NEGATIVE) Ur Phencyclidine (PCP) (NEGATIVE) Urine Amphetamine (NEGATIVE) U Benzodiazepine Level (NEGATIVE) Urine Cocaine (NEGATIVE) Urine Marijuana (THC) (NEGATIVE) - Progress Progress: improved Progress Note: Patient reassessed. Patient remains asymptomatic. Vitals are normal. Blood pressure 130/83. Oxygen saturation 99%. Heart rate 77. Patient feels well. Troponin negative x2. EKG normal sinus rhythm. Chest x-ray negative. No indic ation for further work-up at this time. Will discharge home. Patient agrees to follow-up with primary care doctor within 48 hours for evaluation. Portions of this note were created with voice recognition technology. There may be grammatical, spelling, punctuation or sound alike errors 07/29/21 23:24 Counseled pt/family regarding: lab results, diagnosis, need for follow-up, rad results - Departure Departure Disposition: Home Clinical Impression: Hypokalemia, Heart palpitations, Nonspecific chest pain Condition: Stable Critical Care Time: No Referrals: ERNESTO CRUMP NP [Primary Care Provider] - Follow up/PCP as directed Additional Instructions: Discharge/Care Plan TAMRA ALVAREZ was seen on 07/29/21 in the Emergency Room. The patient was counseled regarding Diagnosis,Lab results, Imaging studies, need for follow up and when to return to the Emergency Room. Prescriptions given: Discharge Note I have spoken with the patient and/or caregivers. I have explained the patient's condition, diagnosis and treatment plan based on the information available to me at this time. I have answered the patient's and/or caregiver's questions and addressed any concerns. The patient and/or caregivers have as good understanding of the patient's diagnosis, condition and treatment plan as can be expected at this point. The vital signs have been stable. The patient's condition is stable and appropriate for discharge from the emergency department. The patient will pursue further outpatient evaluation with the primary care physician or other designated or consulting physician as outlined in the discharge instructions. The patient and/or caregivers are agreeable to this plan of care and follow-up instructions have been explained in detail. The patient and/or caregivers have received these instruction. The patient/and or caregivers are aware that any significant change in condition or worsening of symptoms should prompt an immediate return to this or the closest emergency department or call 911.
[2021-07-29 21:57] VITALS: O2SAT 96
[2021-07-29] MEDS ORDERED: Klor Con 10 MEQ PO ONE (22:52)
[2021-07-29] MEDS: Klor Con 10 MEQ PO ONE ×2 (22:53→23:03)
[2021-07-29] MEDS ORDERED: K-LYTE 25 MEQ PO ONE (22:58)
[2021-07-29] MEDS ORDERED: K-LYTE 25 MEQ ONE (22:59)
[2021-07-29 23:32] VITALS: BP 130/83; PULSE 82
--- NOTE | 2021-07-30 08:46 | XRAY ---
Indication: Chest pain. Atrial fibrillation. Comparison: June 25, 2021. Portable chest again demonstrates normal heart, lungs, and bony thorax.
== END 2021-07-29 23:40 | disposition home or self-care (01) ==
LOC: ED 19:04
DX: R00.2 Palpitations (principal); E87.6 Hypokalemia; R07.9 Chest pain, unspecified; I10 Essential (primary) hypertension; I48.91 Unspecified atrial fibrillation
CPT/HCPCS: 36415; 71045; 80053; 80307; 81001; 84484; 85025; 85379; 99284; A9270-GY

== ENCOUNTER 2021-08-13 19:25 | Emergency (ER) | payer OTHER ==
--- NOTE | 2021-08-13 19:31 | ERPHSYRPT ---
- History of Present Illness Time Seen by Provider: 08/13/21 19:31 Source: patient Exam Limitations: no limitations Physician History: This is a 36-year-old right-handed white female who suffered a right arm injury approximately 3 hours prior to arrival. 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 She has pain in these areas. She is able to move them but it hurts to do so. Patient has a history of atrial fibrillation, hypertension, anxiety issues and lupus. She did not lose consciousness. Occurred: just prior to arrival, hours ago (3) Method of Injury: fell Quality: constant, aching Severity of Pain-Max: moderate Severity of Pain-Current: mild (To moderate) Extremities Pain Location: shoulder: right, arm: right, elbow: right Modifying Factors: Improves With: movement Associated Symptoms: none Allergies/Adverse Reactions: ceftriaxone [From Rocephin] Allergy (Severe, Verified 08/13/21 19:32) hives and swelling hydromorphone HCl [From Dilaudid] Allergy (Severe, Verified 08/13/21 19:32) Anaphylactic Reaction azithromycin [From Zithromax] Allergy (Intermediate, Verified 08/13/21 19:32) Hives erythromycin base [Erythromycin Base] Allergy (Mild, Verified 08/13/21 19:32) Tightness of Throat clonazepam [From Klonopin] Allergy (Verified 08/13/21 19:32) Swelling clonidine Allergy (Verified 08/13/21 19:32) Hives diphenhydramine [From Benadryl] Adverse Reaction (Intermediate, Verified 08/13/21 19:32) Vomiting lorazepam [From Ativan] Adverse Reaction (Verified 08/13/21 19:32) Swelling of Tongue and Lips morphine Adverse Reaction (Verified 08/13/21 19:32) Hives Home Medications: Aspirin EC 81 mg [Ecotrin 81 mg] 4 tab PO DAILY 07/29/21 [History] Hx Tetanus, Diphtheria Vaccination/Date Given: Yes Hx Influenza Vaccination/Date Given: Yes Hx Pneumococcal Vaccination/Date Given: No Travel Risk - International Travel Have you traveled outside of the country in past 3 weeks: No - Coronavirus Screening Are you exhibiting any of the following symptoms?: No Close contact with a COVID-19 positive Pt in past 14-21 Days: No - Vaccine Status Have you recieved a Covid-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: Yes 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[employer] - Vaccination Dates Date of 2cond Vaccination (if applicable): Not yet - Review of Systems Constitutional: No Symptoms Eyes: No Symptoms Ears, Nose, & Throat: No Symptoms Respiratory: No Symptoms Cardiac: No Symptoms Abdominal/Gastrointestinal: No Symptoms Genitourinary Symptoms: No Symptoms Musculoskeletal: Fall, Injury (Right shoulder, right arm, right elbow) Neurological: No Symptoms Psychological: No Symptoms Endocrine: No Symptoms Hematologic/Lymphatic: No Symptoms Immunological/Allergic: No Symptoms All Other Systems: Reviewed and Negative - Past Medical History Pertinent Past Medical History: Yes Neurological History: No Pertinent History ENT History: No Pertinent History Cardiac History: Arrhythmia, Hypertension, Other Respiratory History: No Pertinent History Endocrine Medical History: No Pertinent History Musculoskeletal History: No Pertinent History GI Medical History: No Pertinent History History: No Pertinent History Psycho-Social History: Anxiety, Depression Female Reproductive Disorders: No Pertinent History Other Medical History: kidney stones; a-fib, lupus - Past Surgical History Past Surgical History: Yes Neuro Surgical History: No Pertinent History Cardiac: No Pertinent History Respiratory: No Pertinent History Gastrointestinal: Appendectomy Genitourinary: No Pertinent History Musculoskeletal: No Pertinent History Female Surgical History: Dilation & Curettage, Section, Tubal Ligation Other Surgical History: D&C, states ultrasound and stress showed irreg. 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 tubal 12/03/15 - Social History Smoking Status: Former smoker How long have you smoked: 12 Exposure to second hand smoke: Yes Drug Use: none Patient Lives Alone: No Significant Family History: no pertinent family hx - Nursing Vital Signs Nursing Vital Signs: Initial Vital Signs Temperature 97.7 F 08/13/21 19:32 Pulse Rate 98 H 08/13/21 19:32 Respiratory Rate 16 08/13/21 19:32 Blood Pressure 116/78 08/13/21 19:32 O2 Sat by Pulse Oximetry 97 08/13/21 19:32 Pain Scale Pain Intensity 7 - Physical Exam General Appearance: no apparent distress, alert, anxiety Eyes, Ears, Nose, Throat Exam: normal ENT inspection, moist mucous membranes Neck Exam: normal inspection, non-tender, supple, full range of motion Cardiovascular/Respiratory Exam: chest non-tender, no respiratory distress Abdominal Exam: non-tender Back Exam: normal inspection, normal range of motion, No CVA tenderness, No vertebral tenderness Shoulder Exam: normal inspection, no evidence of injury, normal ROM, soft tissue tenderness Elbow/Forearm Exam: normal inspection, no evidence of injury, normal ROM, soft tissue tenderness Hand Exam: normal inspection, non-tender, no evidence of injury, normal ROM Neuro/Tendon Exam: normal sensation, normal motor functions, normal tendon functions Mental 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, oriented x 3, cooperative Skin Exam: normal color, warm, dry SpO2 Interpretation: normal O2 Delivery: Room Air - Course Nursing assessment & vital signs reviewed: Yes Ordered Tests: Active Orders 24 hr Category Date Time Status ELBOW (MINIMUM 3 VIEWS) Stat Exams 08/13/21 19:41 Taken HUMERUS Stat Exams 08/13/21 19:41 Taken SHOULDER Stat Exams 08/13/21 19:41 Taken - Progress Progress: unchanged Progress Note: 08/13/21 20:40 X-ray right shoulder shows no acute fracture or dislocation. X-ray right humerus shows no acute fracture or dislocation. X-ray right elbow shows no acute fracture dislocation 08/13/21 20:47 Patient does not want a sling. She does not want any narcotics. She will use Tylenol ibuprofen for pain control at home. Counseled pt/family regarding: diagnosis, need for follow-up, rad results - Departure Departure Disposition: Home Clinical Impression: Right shoulder pain, Pain of right humerus, Right elbow pain Condition: Stable Critical Care Time: No Referrals: ERNESTO CRUMP NP [Primary Care Provider] - Follow up/PCP as directed Additional Instructions: Ice pack to tender areas not directly on skin 3 times a day for the next 48 hours. Use ibuprofen and Tylenol for pain control. Forms: Work/School Release Form
[2021-08-13 19:45] VITALS: O2SAT 97
[2021-08-13 20:43] VITALS: BP 98/59; PULSE 85
--- NOTE | 2021-08-14 08:43 | XRAY ---
Indication: Pain following fall. Comparison: None 3 view right shoulder obtained. No bony, articular, or soft tissue abnormalities.
--- NOTE | 2021-08-14 08:45 | XRAY ---
Indication: Pain following fall. Comparison: January 19, 2011. 3 view right elbow obtained. Again no bony, articular, or soft tissue abnormalities.
--- NOTE | 2021-08-14 08:45 | XRAY ---
Indication: Pain following fall. Comparison: None 2 view right humerus obtained. No bony, articular, or soft tissue abnormalities.
== END 2021-08-13 20:54 | disposition home or self-care (01) ==
LOC: ED 19:25
DX: M25.511 Pain in right shoulder (principal); M25.521 Pain in right elbow; M89.8X2 Other specified disorders of bone, upper arm; W01.0XXA Fall on same level from slipping, tripping and stumbling without subsequent striking against object, initial encounter; Y93.F2 Activity, caregiving, lifting; I10 Essential (primary) hypertension
CPT/HCPCS: 73030; 73060; 73080; 99283

== ENCOUNTER 2021-09-17 16:15 | Emergency (ER) | payer OTHER ==
[2021-09-17] MEDS ORDERED: BABY ASPIRIN 81 MG CHEW PO ONE (16:38)
--- NOTE | 2021-09-17 16:45 | ERPHSYRPT ---
- History of Present Illness Historian: patient Exam Limitations: no limitations Patient Subjective Stated Complaint: chest pain that radiates to the left shoulder Triage Nursing Assessment: Pt presents to the ER with left sided chest pain that radiates to the left shoulder which began with no reason, rates pain as 8/10, pulses normal, skin normal, no difficulty breathing, doesn't appear to be in any distress Physician History: 36 yo wf w h/o HTN/1-2 ppd tobacco use until 2 yrs ago/Afib presents w L substernal chest pain w radiation to L shoulder x90 minutes. Pain is sharp, 7/10 on scale, and accompanied w N/dyspnea/diaphoresis. Pt also states that she has a L breast/chest mass which she is to see Dr. Jolley for consultation. Timing/Duration: other (90 minutes) Quality: sharpness Location: substernal Chest Pain Radiation: arm (L shoulder) Severity of Pain-Max: moderate Severity of Pain-Current: moderate Modifying Factors: Improves With: nothing Associated Symptoms: nausea, shortness of breath, hurts to breathe, diaphoresis, No vomiting, No palpitations, No heartburn, No abdominal pain, No cough, No chills, No fever, No fatigue, No weakness, No swelling/lump in chest, No syncope, No rash, No headache, No dizziness, No edema, No back pain Prior Chest Pain/Cardiac Workup: no prior chest pain Nitro Today/Relief: no nitro taken today Aspirin Treatment Today: no aspirin today Allergies/Adverse Reactions: ceftriaxone [From Rocephin] Allergy (Severe, Verified 09/17/21 16:23) hives and swelling hydromorphone HCl [From Dilaudid] Allergy (Severe, Verified 09/17/21 16:23) Anaphylactic Reaction azithromycin [From Zithromax] Allergy (Intermediate, Verified 09/17/21 16:23) Hives erythromycin base [Erythromycin Base] Allergy (Mild, Verified 09/17/21 16:23) Tightness of Throat clonazepam [From Klonopin] Allergy (Verified 09/17/21 16:23) Swelling clonidine Allergy (Verified 09/17/21 16:23) Hives diphenhydramine [From Benadryl] Adverse Reaction (Intermediate, Verified 09/17/21 16:23) Vomiting lorazepam [From Ativan] Adverse Reaction (Verified 09/17/21 16:23) Swelling of Tongue and Lips morphine Adverse Reaction (Verified 09/17/21 16:23) Hives Home Medications: Aspirin EC 81 mg [Ecotrin 81 mg] 4 tab PO DAILY 07/29/21 [History] Hx Tetanus, Diphtheria Vaccination/Date Given: Yes Hx Influenza Vaccination/Date Given: Yes Hx Pneumococcal Vaccination/Date Given: No Travel Risk - International Travel Have you traveled outside of the country in past 3 weeks: No - Coronavirus Screening Are you exhibiting any of the following symptoms?: No Close contact with a COVID-19 positive Pt in past 14-21 Days: No - Vaccine Status Have you recieved a Covid-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: Yes 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[employer] - Vaccination Dates Date of 2cond Vaccination (if applicable): Not yet - Review of Systems Constitutional: No Symptoms Eyes: No Symptoms Ears, Nose, & Throat: No Symptoms Respiratory: No Symptoms, Dyspnea Cardiac: No Symptoms, Chest Pain Abdominal/Gastrointestinal: No Symptoms, Nausea Genitourinary Symptoms: No Symptoms Musculoskeletal: No Symptoms Skin: No Symptoms Neurological: No Symptoms Psychological: No Symptoms Endocrine: No Symptoms Hematologic/Lymphatic: No Symptoms Immunological/Allergic: No Symptoms - Past Medical History Pertinent Past Medical History: Yes Neurological History: No Pertinent History ENT History: No Pertinent History Cardiac History: Arrhythmia, Hypertension, Other Respiratory History: No Pertinent History Endocrine Medical History: No Pertinent History Musculoskeletal History: No Pertinent History GI Medical History: No Pertinent History History: No Pertinent History Psycho-Social History: Anxiety, Depression Female Reproductive Disorders: No Pertinent History Other Medical History: kidney stones; a-fib, lupus - Past Surgical History Past Surgical History: Yes Neuro Surgical History: No Pertinent History Cardiac: No Pertinent History Respiratory: No Pertinent History Gastrointestinal: Appendectomy Genitourinary: No Pertinent History Musculoskeletal: No Pertinent History Female Surgical History: Dilation & Curettage, Section, Tubal Ligation Other Surgical History: D&C, states ultrasound and stress showed irreg. 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 tubal 12/03/15 - Social History Smoking Status: Former smoker How long have you smoked: 12 Exposure to second hand smoke: Yes Drug Use: none Patient Lives Alone: No Significant Family History: no pertinent family hx - Female History Hx Now: No (tubal) - Nursing Vital Signs Nursing Vital Signs: Initial Vital Signs Temperature 97.5 F 09/17/21 16:16 Pulse Rate 84 09/17/21 16:16 Respiratory Rate 12 09/17/21 16:16 Blood Pressure 109/76 09/17/21 16:16 O2 Sat by Pulse Oximetry 99 09/17/21 16:16 Pain Scale Pain Intensity 8 WNL - Physical Exam General Appearance: no apparent distress Eye Exam: PERRL/EOMI, eyes nml inspection Ears, Nose, Throat Exam: normal ENT inspection, TMs normal, pharynx normal, moist mucous membranes Neck Exam: normal inspection, non-tender, supple, full range of motion, No meningismus, No mass, No Brudzinski, No Kernig's, No carotid bruit Respiratory Exam: normal breath sounds, lungs clear, airway intact Cardiovascular Exam: regular rate/rhythm, normal heart sounds, normal peripheral pulses, No murmur Gastrointestinal/Abdomen Exam: soft, normal bowel sounds, No tenderness Back Exam: normal inspection, normal range of motion, No CVA tenderness, No vertebral tenderness Extremity Exam: normal inspection, normal range of motion Neurologic Exam: alert, oriented x 3, cooperative, bond analyst II-XII nml as tested, normal mood/affect, nml cerebellar function, nml station & gait, sensation nml Skin Exam: normal color, warm, dry Lymphatic Exam: No adenopathy SpO2 Interpretation: normal SpO2: 99 O2 Delivery: Room Air - Course EKG Interpreted by Me: RATE (NSR/Rate87/Normal QT-QTc/Low voltage/No acute St- Twave changes) - Radiology Exams Chest X-ray Interpretation: Interpreted by me (NAD) Ordered Tests: Active Orders 24 hr Category Date Time Status EKG-ER Only STAT Care 09/17/21 16:38 Completed IV Insertion STAT Care 09/17/21 16:38 Completed CHEST 1 VIEW (PORTABLE) Stat Exams 09/17/21 16:38 Taken CBC W DIFF Stat Lab 09/17/21 16:55 Completed CMP Stat Lab 09/17/21 16:55 Completed NT PRO BNP Stat Lab 09/17/21 16:55 Completed PROTIME WITH INR Stat Lab 09/17/21 16:55 Completed PTT Stat Lab 09/17/21 16:55 Completed TROPONIN Q3H Lab 09/17/21 16:55 Completed TROPONIN Q3H Lab 09/17/21 22:45 Ordered Medication Summary Discontinued Medications Generic Name Dose Route Start Last Admin Trade Name Lata PRN Reason Stop Dose Admin Aspirin 324 mg 09/17/21 16:38 09/17/21 16:49 Aspirin 81 Mg Tab.Chew PO 09/17/21 16:39 324 mg STAT ONE Administration Lab/Rad Data: Laboratory Result Diagrams 09/17/21 16:55 09/17/21 16:55 Laboratory Results 09/17/21 09/17/21 09/17/21 Range/Units 16:55 16:55 16:55 WBC (4.0-10.5) K/mm3 RBC (4.1-5.4) M/mm3 Hgb (12.0-16.0) gm/dl Hct (35-47) % MCV (78-100) fl MCH (26-32) pg MCHC (32-36) g/dl RDW (11.5-14.0) % Plt Count (150-450) K/mm3 MPV (7.5-11.0) fl Gran % (36.0-66.0) % Eos # (Auto) (0-0.5) Absolute Lymphs (auto) (1.0-4.6) Absolute Monos (auto) (0.0-1.3) Lymphocytes % (24.0-44.0) % Monocytes % (0.0-12.0) % Eosinophils % (0.00-5.0) % Basophils % (0.0-0.4) % Absolute Granulocytes (1.4-6.9) Basophils # (0-0.4) PT 12.9 H (9.4-12.5) SECONDS INR 1.09 (0.8-3.0) APTT 31.0 (25.1-36.5) SECONDS Sodium 140 (137-145) mmol/L Potassium 3.7 (3.5-5.1) mmol/L Chloride 108 H (98-107) mmol/L Carbon Dioxide 20 L (22-30) mmol/L Anion Gap 16.4 H (5-15) MEQ/L BUN 10 (7-17) mg/dL Creatinine 0.68 (0.52-1.04) mg/dL Estimated GFR > 60.0 ML/MIN Glucose 100 (74-106) mg/dL Calcium 9.3 (8.4-10.2) mg/dL Total Bilirubin 0.40 (0.2-1.3) mg/dL AST 17 (14-36) U/L ALT 14 (0-35) U/L Alkaline Phosphatase 60 (38-126) U/L Troponin I < 0.012 (0.000-0.034) ng/mL NT-Pro-B Natriuret Pep 23.4 (0-450) pg/mL Serum Total Protein 7.3 (6.3-8.2) g/dL Albumin 4.0 (3.5-5.0) g/dL 09/17/21 Range/Units 16:55 WBC 7.0 (4.0-10.5) K/mm3 RBC 4.45 (4.1-5.4) M/mm3 Hgb 11.9 L (12.0-16.0) gm/dl Hct 37.5 (35-47) % MCV 84.3 (78-100) fl MCH 26.7 (26-32) pg MCHC 31.7 L (32-36) g/dl RDW 15.3 H (11.5-14.0) % Plt Count 307 (150-450) K/mm3 MPV 9.9 (7.5-11.0) fl Gran % 55.7 (36.0-66.0) % Eos # (Auto) 0.07 (0-0.5) Absolute Lymphs (auto) 2.62 (1.0-4.6) Absolute Monos (auto) 0.38 (0.0-1.3) Lymphocytes % 37.7 (24.0-44.0) % Monocytes % 5.5 (0.0-12.0) % Eosinophils % 1.0 (0.00-5.0) % Basophils % 0.1 (0.0-0.4) % Absolute Granulocytes 3.87 (1.4-6.9) Basophils # 0.01 (0-0.4) PT (9.4-12.5) SECONDS INR (0.8-3.0) APTT (25.1-36.5) SECONDS Sodium (137-145) mmol/L Potassium (3.5-5.1) mmol/L Chloride (98-107) mmol/L Carbon Dioxide (22-30) mmol/L Anion Gap (5-15) MEQ/L BUN (7-17) mg/dL Creatinine (0.52-1.04) mg/dL Estimated GFR ML/MIN Glucose (74-106) mg/dL Calcium (8.4-10.2) mg/dL Total Bilirubin (0.2-1.3) mg/dL AST (14-36) U/L ALT (0-35) U/L Alkaline Phosphatase (38-126) U/L Troponin I (0.000-0.034) ng/mL NT-Pro-B Natriuret Pep (0-450) pg/mL Serum Total Protein (6.3-8.2) g/dL Albumin (3.5-5.0) g/dL - Progress Progress: improved Progress Note: 09/17/21 17:35 ASA 324mg po x1 Heart Score 1 09/17/21 17:40 Pt's pain improved during stay wo treatment and was minimal before discharge 09/17/21 19:23 Counseled pt/family regarding: lab results, diagnosis, need for follow-up, rad results - Departure Departure Disposition: Home Clinical Impression: Chest pain Condition: Stable Critical Care Time: No Referrals: ERNESTO CRUMP NP [Primary Care Provider] - Follow up/PCP as directed Instructions: Chest Pain (DC) Additional Instructions: Follow up with your family MD or Dr. Rodriguez on Monday Return to ER for worsening pain or shortness of breath
[2021-09-17 17:07] LABS: Absolute Neutrophil Ct (ANC) 3.87 (1.4-6.9); Basophil (Absolute #) 0.01 (0-0.4); Eosinophil (Absolute #) 0.07 (0-0.5); Hematocrit 37.5 % (35-47); Hemoglobin 11.9 gm/dl (12.0-16.0); Lymphocyte (Absolute #) 2.62 (1.0-4.6); Lymphocytes % 37.7 % (24.0-44.0); Mean Cell Volume 84.3 fl (78-100); Mean Corpuscular Hemoglobin 26.7 pg (26-32); Mean Corpuscular Hgb Concent. 31.7 g/dl (32-36); Mean Platelet Volume 9.9 fl (7.5-11.0); Monocyte (Absolute #) 0.38 (0.0-1.3); Monocytes % 5.5 % (0.0-12.0); Neutrophil % 55.7 % (36.0-66.0); Platelet Count 307 K/mm3 (150-450); Red Blood Count 4.45 M/mm3 (4.1-5.4); Red Cell Distribution Width 15.3 % (11.5-14.0)
[2021-09-17 17:13] LABS: INR 1.09 (0.8-3.0); PROTIME 12.9 SECONDS (9.4-12.5)
[2021-09-17 17:27] LABS: ALKALINE PHOSPHATASE 60 U/L (38-126); ANION GAP 16.4 MEQ/L (5-15); BLOOD UREA NITROGEN 10 mg/dL (7-17); CHLORIDE 108 mmol/L (98-107); Calcium 9.3 mg/dL (8.4-10.2); Carbon Dioxide 20 mmol/L (22-30); Creatinine 1 0.68 mg/dL (0.52-1.04); EST GLOMERULAR FILTRATION RATE > 60.0 ML/MIN; Glucose 100 mg/dL (74-106); NT PRO BNP 23.4 pg/mL (0-450); Potassium 3.7 mmol/L (3.5-5.1); SGOT/AST 17 U/L (14-36); SGPT/ALT 14 U/L (0-35); SODIUM 140 mmol/L (137-145); Total Protein 7.3 g/dL (6.3-8.2)
[2021-09-17 18:08] VITALS: BP 105/65; PULSE 75
[2021-09-17 19:24] VITALS: O2SAT 99
--- NOTE | 2021-09-17 22:10 | XRAY ---
Indication: Chest pain. Comparison: July 29, 2021. Portable chest again demonstrates normal heart, lungs, and bony thorax.
== END 2021-09-17 18:13 | disposition home or self-care (01) ==
LOC: ED 16:15
DX: R07.9 Chest pain, unspecified (principal); R11.0 Nausea; R06.00 Dyspnea, unspecified; I10 Essential (primary) hypertension; I48.91 Unspecified atrial fibrillation
CPT/HCPCS: 36000; 36415; 71045; 80053; 83880; 84484; 85025; 85610; 85730; 93005; 99284; A9270-GY

== ENCOUNTER 2022-01-03 14:55 | Emergency (ER) | payer OTHER ==
[2022-01-03] MEDS ORDERED: Sodium Chloride 0.9% 1000 ML 0 ML ONE (15:15)
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
[2022-01-03] MEDS ORDERED: Sodium Chloride 0.9% 1000 ML 1,000 ML ONE (16:37)
[2022-01-03 17:16] VITALS: BP 116/80; PULSE 79
[2022-01-04 01:06] VITALS: O2SAT 96
== END 2022-01-03 17:16 | disposition home or self-care (01) ==
LOC: ED 14:55
DX: T54.91XA Toxic effect of unspecified corrosive substance, accidental (unintentional), initial encounter (principal); T26.91XA Corrosion of right eye and adnexa, part unspecified, initial encounter; Y99.0 Civilian activity done for income or pay; H57.11 Ocular pain, right eye; H53.8 Other visual disturbances
CPT/HCPCS: 99282

== ENCOUNTER 2022-02-07 14:16 | Emergency (ER) | payer OTHER ==
[2022-02-07 14:28] VITALS: BP 127/85; PULSE 94; O2SAT 97
[2022-02-07] MEDS ORDERED: Pepcid 20 MG VIAL IV ONE ×2 (14:36→14:42)
--- NOTE | 2022-02-07 14:36 | ERPHSYRPT ---
- History of Present Illness Time Seen by Provider: 02/07/22 14:25 Source: patient Exam Limitations: no limitations Patient Subjective Stated Complaint: C/O allergic reaction at work just prior to arrival to ED Triage Nursing Assessment: Patient alert and oriented. No SOB or cough noted. No hives noted. ACEVEDO WNL. Lungs clear. Physician History: This a 36-year-old white female who states that she is allergic to cinnamon and was exposed to cinnamon approximately 30 minutes prior to arrival. Patient did receive an injection of an EpiPen. Patient, for the EpiPen, was complaining of numbness in her tongue and lips. She did not complain of any rash or difficulty breathing. Patient states she is allergic to Benadryl and prednisone. She states she can take one type of steroid but does not recall the name of it. Timing/Duration: today Quality: other (Swelling of tongue and lips) Severity: mild Location: face Possible Causes: exposure to allergen (Cinnamon) Modifying Factors: Improves With: other (Patient received an EpiPen injection prior to arrival) Associated Symptoms: tingling (Mouth and tongue), No fever, No rash Allergies/Adverse Reactions: ceftriaxone [From Rocephin] Allergy (Severe, Verified 02/07/22 14:18) hives and swelling hydromorphone HCl [From Dilaudid] Allergy (Severe, Verified 02/07/22 14:18) Anaphylactic Reaction azithromycin [From Zithromax] Allergy (Intermediate, Verified 02/07/22 14:18) Hives erythromycin base [Erythromycin Base] Allergy (Mild, Verified 02/07/22 14:18) Tightness of Throat cinnamon Allergy (Verified 02/07/22 14:18) clonazepam [From Klonopin] Allergy (Verified 02/07/22 14:18) Swelling clonidine Allergy (Verified 02/07/22 14:18) Hives diphenhydramine [From Benadryl] Adverse Reaction (Intermediate, Verified 02/07/22 14:18) Vomiting lorazepam [From Ativan] Adverse Reaction (Verified 02/07/22 14:18) Swelling of Tongue and Lips morphine Adverse Reaction (Verified 02/07/22 14:18) Hives Home Medications: Aspirin 81 gm Chew [Baby Aspirin 81 mg Chew] 4 tab PO DAILY 02/07/22 [History] Hx Tetanus, Diphtheria Vaccination/Date Given: Yes Hx Influenza Vaccination/Date Given: No Hx Pneumococcal Vaccination/Date Given: No Immunizations Up to Date: Yes Travel Risk - International Travel Have you traveled outside of the country in past 3 weeks: No - Coronavirus Screening Are you exhibiting any of the following symptoms?: No Close contact with a COVID-19 positive Pt in past 14-21 Days: No - Vaccine Status Have you recieved a Covid-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: Yes 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[employer] - Vaccination Dates Date of 2cond Vaccination (if applicable): None - Review of Systems Constitutional: No Symptoms Eyes: No Symptoms Ears, Nose, & Throat: No Symptoms Respiratory: No Symptoms Cardiac: No Symptoms Abdominal/Gastrointestinal: No Symptoms Genitourinary Symptoms: No Symptoms Musculoskeletal: No Symptoms Skin: No Symptoms Neurological: No Symptoms Psychological: No Symptoms Endocrine: No Symptoms Hematologic/Lymphatic: No Symptoms Immunological/Allergic: No Symptoms All Other Systems: Reviewed and Negative - Past Medical History Pertinent Past Medical History: Yes Neurological History: No Pertinent History ENT History: No Pertinent History Cardiac History: Arrhythmia, Other Respiratory History: No Pertinent History Endocrine Medical History: No Pertinent History Musculoskeletal History: No Pertinent History GI Medical History: No Pertinent History History: No Pertinent History Psycho-Social History: Anxiety, Depression Female Reproductive Disorders: No Pertinent History Other Medical History: kidney stones; a-fib, lupus - Past Surgical History Past Surgical History: Yes Neuro Surgical History: No Pertinent History Cardiac: No Pertinent History Respiratory: No Pertinent History Gastrointestinal: Appendectomy Genitourinary: No Pertinent History Musculoskeletal: No Pertinent History Female Surgical History: Dilation & Curettage, Section, Tubal Ligation Other Surgical History: D&C, states ultrasound and stress showed irreg. 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 tubal 12/03/15-----recent chest pain l side pt states d/t tumor. - Social History Smoking Status: Former smoker How long have you smoked: 12 Exposure to second hand smoke: Yes Drug Use: none Patient Lives Alone: No Significant Family History: no pertinent family hx - Female History Hx Now: No - Nursing Vital Signs Nursing Vital Signs: Initial Vital Signs Temperature 97.5 F 02/07/22 14:19 Pulse Rate 94 H 02/07/22 14:19 Respiratory Rate 02/07/22 14:19 Blood Pressure 127/85 02/07/22 14:19 O2 Sat by Pulse Oximetry 97 02/07/22 14:19 Pain Scale Pain Intensity 8 - Physical Exam General Appearance: no apparent distress, alert, anxiety Eye Exam: PERRL/EOMI, eyes nml inspection Ears, Nose, Throat Exam: normal ENT inspection, moist mucous membranes Neck Exam: normal inspection, non-tender, supple, full range of motion Respiratory Exam: normal breath sounds, lungs clear, No chest tenderness, No respiratory distress, No wheezing, No stridor Cardiovascular Exam: regular rate/rhythm, normal heart sounds, normal peripheral pulses Gastrointestinal/Abdomen Exam: soft, normal bowel sounds, No tenderness Pelvic Exam: not done Rectal Exam: not done Back Exam: normal inspection, normal range of motion, No CVA tenderness, No vertebral tenderness Extremity Exam: normal inspection, normal range of motion, pelvis stable Neurologic Exam: alert, oriented x 3, cooperative, arm rest builder II-XII nml as tested, normal mood/affect, nml cerebellar function, nml station & gait, sensation nml Skin Exam: normal color, warm, dry, No rash Lymphatic Exam: adenopathy SpO2 Interpretation: normal SpO2: 97 O2 Delivery: Room Air Ordered Tests: Medication Summary Discontinued Medications Generic Name Dose Route Start Last Admin Trade Name Freq PRN Reason Stop Dose Admin Famotidine 20 mg 02/07/22 14:36 02/07/22 14:43 Famotidine 20 Mg/1 Vial IV 02/07/22 14:37 20 mg STAT ONE Administration Famotidine Confirm 02/07/22 14:42 Famotidine 20 Mg/1 Vial Administered 02/07/22 14:43 Dose 20 mg IV .STK-MED ONE - Progress Progress Note: 02/07/22 14:42 Reviewing old records patient has had and tolerated hydroxyzine in the past and we will use this in place of the Benadryl. 02/07/22 14:47 In reviewing old records this patient has had and tolerated dexamethasone in the past. We will use this in place of prednisone and Solu-Medrol Counseled pt/family regarding: diagnosis, need for follow-up - Departure Departure Disposition: Home Clinical Impression: Allergic reaction Condition: Stable Critical Care Time: No Referrals: ERNESTO CRUMP NP [Primary Care Provider] - Follow up/PCP as directed Additional Instructions: Avoid cinnamon. Take your prescriptions as prescribed. Prescriptions: Hydroxyzine HCl 25 mg [Atarax 25 mg] 25 mg PO Q6H PRN #12 tablet PRN Reason: Itching dexAMETHasone [Dexamethasone] 0.75 mg PO UD #9 tablet Famotidine 20 mg [Pepcid 20 MG] 20 mg PO DAILY #10 tablet
[2022-02-07] MEDS ORDERED: Decadron 4 MG INJ IV ONE (14:45)
[2022-02-07] MEDS ORDERED: Decadron 4 MG INJ ONE (14:53)
== END 2022-02-07 15:16 | disposition home or self-care (01) ==
LOC: ED 14:16
DX: T78.1XXA Other adverse food reactions, not elsewhere classified, initial encounter (principal); R20.0 Anesthesia of skin; Z79.52 Long term (current) use of systemic steroids
CPT/HCPCS: 36000; 96374; 96375; 99283; J1100

== ENCOUNTER 2022-03-20 16:15 | Emergency (ER) | payer OTHER ==
[2022-03-20] MEDS ORDERED: Pepcid 20 MG VIAL IV ONE ×2 (16:22→16:34)
[2022-03-20 18:13] VITALS: O2SAT 98
[2022-03-20] MEDS ORDERED: ZOFRAN ODT 4 MG PO ONE (18:18)
[2022-03-20] MEDS ORDERED: ZOFRAN ODT 4 MG ONE (18:33)
--- NOTE | 2022-03-20 18:51 | ERPHSYRPT ---
- History of Present Illness Time Seen by Provider: 03/20/22 16:18 Source: patient, EMS Exam Limitations: no limitations Patient Subjective Stated Complaint: C/O allergic reaction to cinnamon at work just prior to coming into the ED today. 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 She was unaware that there was cinnamon in the bottom of one of the pans and it splashed into her face. Triage Nursing Assessment: Patient brougt in by ambulance. She is alert and oriented. No SOB noted. Lungs clear. 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 She does not have any difficulty breathing or chest tightness at present. She feels generalized weakness and fatigue/tiredness. Timing/Duration: hour(s) (0.5), sudden, improved Severity: moderate Modifying Factors: Improves With: other Associated Symptoms: denies symptoms Allergies/Adverse Reactions: ceftriaxone [From Rocephin] Allergy (Severe, Verified 03/20/22 16:18) hives and swelling hydromorphone HCl [From Dilaudid] Allergy (Severe, Verified 03/20/22 16:18) Anaphylactic Reaction azithromycin [From Zithromax] Allergy (Intermediate, Verified 03/20/22 16:18) Hives erythromycin base [Erythromycin Base] Allergy (Mild, Verified 03/20/22 16:18) Tightness of Throat cinnamon Allergy (Verified 03/20/22 16:18) clonazepam [From Klonopin] Allergy (Verified 03/20/22 16:18) Swelling clonidine Allergy (Verified 03/20/22 16:18) Hives prednisone Allergy (Verified 03/20/22 16:18) diphenhydramine [From Benadryl] Adverse Reaction (Intermediate, Verified 03/20/22 16:18) Vomiting lorazepam [From Ativan] Adverse Reaction (Verified 03/20/22 16:18) Swelling of Tongue and Lips morphine Adverse Reaction (Verified 03/20/22 16:18) Hives Hx Tetanus, Diphtheria Vaccination/Date Given: Yes Hx Influenza Vaccination/Date Given: No Hx Pneumococcal Vaccination/Date Given: No Immunizations Up to Date: Yes Travel Risk - International Travel Have you traveled outside of the country in past 3 weeks: No - Coronavirus Screening Are you exhibiting any of the following symptoms?: No Close contact with a COVID-19 positive Pt in past 14-21 Days: No - Vaccine Status Have you recieved a Covid-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: 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[employer] - Vaccination Dates Date of 2cond Vaccination (if applicable): None - Review of Systems Constitutional: Fatigue Eyes: No Symptoms Ears, Nose, & Throat: No Symptoms Respiratory: No Symptoms Cardiac: No Symptoms Abdominal/Gastrointestinal: No Symptoms Genitourinary Symptoms: No Symptoms Musculoskeletal: No Symptoms Skin: No Symptoms Neurological: No Symptoms Endocrine: No Symptoms Hematologic/Lymphatic: No Symptoms Immunological/Allergic: No Symptoms - Past Medical History Pertinent Past Medical History: Yes Neurological History: No Pertinent History ENT History: No Pertinent History Cardiac History: Arrhythmia, Other Respiratory History: No Pertinent History Endocrine Medical History: No Pertinent History Musculoskeletal History: No Pertinent History GI Medical History: No Pertinent History History: No Pertinent History Psycho-Social History: Anxiety, Depression Female Reproductive Disorders: No Pertinent History Other Medical History: kidney stones; a-fib, lupus - Past Surgical History Past Surgical History: Yes Neuro Surgical History: No Pertinent History Cardiac: No Pertinent History Respiratory: No Pertinent History Gastrointestinal: Appendectomy Genitourinary: No Pertinent History Musculoskeletal: No Pertinent History Female Surgical History: Dilation & Curettage, Section, Tubal Ligation Other Surgical History: D&C, states ultrasound and stress showed irreg. 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 tubal 12/03/15-----recent chest pain l side pt states d/t tumor. - Social History Smoking Status: Former smoker How long have you smoked: 12 Exposure to second hand smoke: Yes Drug Use: none Patient Lives Alone: No Significant Family History: no pertinent family hx - Female History Hx Last Menstrual Period: February Hx Now: No (tubal ligation) - Nursing Vital Signs Nursing Vital Signs: Initial Vital Signs Temperature 97.6 F 03/20/22 16:19 Pulse Rate 85 03/20/22 16:19 Respiratory Rate 17 03/20/22 16:19 Blood Pressure 109/70 03/20/22 16:19 O2 Sat by Pulse Oximetry 99 03/20/22 16:19 Pain Scale Pain Intensity 0 - Physical Exam General Appearance: no apparent distress, alert Eye Exam: PERRL/EOMI Ears, Nose, Throat Exam: normal ENT inspection, TMs normal, pharynx normal, moist mucous membranes Neck Exam: normal inspection, non-tender, supple, full range of motion Respiratory Exam: normal breath sounds, lungs clear Cardiovascular Exam: regular rate/rhythm, normal heart sounds Gastrointestinal/Abdomen Exam: No tenderness Back Exam: normal inspection, normal range of motion Extremity Exam: normal inspection, normal range of motion Neurologic Exam: alert, oriented x 3, cooperative, dry color tester II-XII nml as tested, normal mood/affect Skin Exam: normal color SpO2 Interpretation: normal SpO2: 98 O2 Delivery: Room Air Ordered Tests: Active Orders 24 hr Category Date Time Status IV Insertion STAT Care 03/20/22 16:22 Completed Medication Summary Discontinued Medications Generic Name Dose Route Start Last Admin Trade Name Freq PRN Reason Stop Dose Admin Famotidine 20 mg 03/20/22 16:22 03/20/22 16:35 Famotidine 20 Mg/1 Vial IV 03/20/22 16:23 20 mg STAT ONE Administration Famotidine Confirm 03/20/22 16:34 Famotidine 20 Mg/1 Vial Administered 03/20/22 16:35 Dose 20 mg IV .STK-MED ONE Ondansetron HCl 4 mg 03/20/22 18:18 03/20/22 18:37 Zofran 4 Mg/Udtablet Orally Disintegrating PO 03/20/22 18:19 4 mg STAT ONE Administration Ondansetron HCl Confirm 03/20/22 18:33 Zofran 4 Mg/Udtablet Orally Disintegrating Administered 03/20/22 18:34 Dose 4 mg .ROUTE .STK-MED ONE - Progress Progress: improved Progress Note: 03/20/22 19:35 She is given Pepcid, she is allergic to Benadryl and steroids. Observed in the ER and she is little over 3 hours from post EpiPen. Remained stable. She is being discharged with outpatient follow-up. We will send the prescription of EpiPen to the pharmacy. Counseled pt/family regarding: diagnosis, need for follow-up - Departure Departure Disposition: Home Clinical Impression: Allergic reaction Condition: Stable Critical Care Time: No Referrals: CRUMP,ERNESTO, RIB CUTTER [Primary Care Provider] - Follow Up with PCP/3 days Instructions: Anaphylaxis (DC) Additional Instructions: Avoid cinnamon exposure. Use EpiPen as needed. Follow-up with primary care for reevaluation. Return to ER for any worsening. Prescriptions: EPINEPHrine [Symjepi] 0.3 mg IJ DIRECTIONS UNKNOWN PRN 1 Days #1 unit PRN Reason: Allergies
[2022-03-20 19:48] VITALS: BP 112/64; PULSE 94
== END 2022-03-20 19:49 | disposition home or self-care (01) ==
LOC: ED 16:15
DX: T78.1XXA Other adverse food reactions, not elsewhere classified, initial encounter (principal); R06.00 Dyspnea, unspecified; R53.1 Weakness; R53.83 Other fatigue
CPT/HCPCS: 96374; 99284; Q0162

== ENCOUNTER 2022-05-24 16:55 | Emergency (ER) | payer OTHER ==
[2022-05-24] MEDS ORDERED: Sodium Chloride 0.9% 1000 ML 1,000 ML IV STA (17:55)
[2022-05-24] MEDS ORDERED: Sodium Chloride 0.9% 1000 ML 1,000 ML ONE (18:02)
[2022-05-24 18:07] LABS: Absolute Neutrophil Ct (ANC) 4.57 x10^3/uL (1.4-6.9); Basophil (Absolute #) 0.02 x10^3/uL (0-0.4); Eosinophil % 2.4 % (0.00-5.0); Eosinophil (Absolute #) 0.18 x10^3/uL (0-0.5); Hemoglobin 12.3 g/dL (12.0-16.0); Lymphocyte (Absolute #) 2.29 x10^3/uL (1.0-4.6); Lymphocytes % 30.5 % (24.0-44.0); Mean Cell Volume 83.7 fL (78-100); Mean Corpuscular Hemoglobin 25.7 pg (26-32); Mean Corpuscular Hgb Concent. 30.8 g/dL (32-36); Mean Platelet Volume 9.2 fL (7.5-11.0); Monocyte (Absolute #) 0.42 x10^3/uL (0.0-1.3); Monocytes % 5.6 % (0.0-12.0); Neutrophil % 60.9 % (36.0-66.0); Platelet Count 357 x10^3/uL (150-450); Red Blood Count 4.78 x10^6/uL (4.1-5.4); White Blood Count 7.5 x10^3/uL (4.0-10.5)
[2022-05-24 18:18] LABS: ALBUMIN 4.4 g/dL (3.5-5.0); ALKALINE PHOSPHATASE 77 U/L (38-126); AMYLASE 57 U/L (30-110); ANION GAP 11.3 MEQ/L (5-15); BLOOD UREA NITROGEN 14 mg/dL (7-17); CHLORIDE 108 mmol/L (98-107); Calcium 9.4 mg/dL (8.4-10.2); Carbon Dioxide 23 mmol/L (22-30); Creatinine 1 0.63 mg/dL (0.52-1.04); EST GLOMERULAR FILTRATION RATE > 60.0 ML/MIN; Glucose 113 mg/dL (74-106); LIPASE 67 U/L (23-300); Potassium 3.7 mmol/L (3.5-5.1); SGOT/AST 31 U/L (14-36); SGPT/ALT 22 U/L (0-35); SODIUM 138 mmol/L (137-145); Total Protein 8.4 g/dL (6.3-8.2)
--- NOTE | 2022-05-24 18:42 | ERPHSYRPT ---
- History of Present Illness Time Seen by Provider: 05/24/22 17:45 Source: patient Exam Limitations: no limitations Patient Subjective Stated Complaint: Pt was at work yesterday and passed out, pt started the Mounjaro this week and hasn't eaten or drank in 4 days and also had pnuemonia and took the flu shot on top of it and had lost 10 lbs, pt needed a note for work so she went to [facility] and they sent her down here to get fluids due to them thinking she is dehydrated Triage Nursing Assessment: Pt brought self to the ER, vitals wnl, denies pain, A&O, pulses normal, skin n/w/d, reports that she hasn't urinated in 2 days, no difficulty breathing Physician History: Patient is a 36-year-old female who presents with a complaint of dizziness. She had an episode where she passed out at work and needed an excuse so [facility] went [facility] they found out that she had started on a diabetic medication called Mounjaro - she had not eaten or drink for 4 days she is lost 10 pounds and had an episode of pneumonia. [facility] thought she was dehydrated and sent her to the ER for fluids. She has no complaints other than being somewhat lightheaded with standing. Timing/Duration: week(s) (1) Severity: moderate Associated Symptoms: syncope, weakness Allergies/Adverse Reactions: ceftriaxone [From Rocephin] Allergy (Severe, Verified 05/24/22 17:46) hives and swelling hydromorphone HCl [From Dilaudid] Allergy (Severe, Verified 05/24/22 17:46) Anaphylactic Reaction azithromycin [From Zithromax] Allergy (Intermediate, Verified 05/24/22 17:46) Hives erythromycin base [Erythromycin Base] Allergy (Mild, Verified 05/24/22 17:46) Tightness of Throat cinnamon Allergy (Verified 05/24/22 17:46) clonazepam [From Klonopin] Allergy (Verified 05/24/22 17:46) Swelling clonidine Allergy (Verified 05/24/22 17:46) Hives prednisone Allergy (Verified 05/24/22 17:46) diphenhydramine [From Benadryl] Adverse Reaction (Intermediate, Verified 05/24/22 17:46) Vomiting lorazepam [From Ativan] Adverse Reaction (Verified 05/24/22 17:46) Swelling of Tongue and Lips morphine Adverse Reaction (Verified 05/24/22 17:46) Hives Home Medications: Tirzepatide [Mounjaro] 2.5 mg SQ WEEKLY 05/24/22 [History] Hx Tetanus, Diphtheria Vaccination/Date Given: Yes Hx Influenza Vaccination/Date Given: Yes Hx Pneumococcal Vaccination/Date Given: No Travel Risk - International Travel Have you traveled outside of the country in past 3 weeks: No - Coronavirus Screening Are you exhibiting any of the following symptoms?: No Close contact with a COVID-19 positive Pt in past 14-21 Days: No - Vaccine Status Have you recieved a 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-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: 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[employer] - Vaccination Dates Date of 2cond Vaccination (if applicable): None - Review of Systems Constitutional: No Fever, No Chills Eyes: No Symptoms Ears, Nose, & Throat: No Symptoms Respiratory: No Cough, No Dyspnea Cardiac: No Chest Pain, No Edema, No Syncope Abdominal/Gastrointestinal: No Abdominal Pain, No Nausea, No Vomiting, No Diarrhea Genitourinary Symptoms: No Dysuria Musculoskeletal: No Back Pain, No Neck Pain Skin: No Rash Neurological: Dizziness, No Focal Weakness, No Sensory Changes Psychological: No Symptoms Endocrine: No Symptoms All Other Systems: Reviewed and Negative - Past Medical History Pertinent Past Medical History: Yes Neurological History: No Pertinent History ENT History: No Pertinent History Cardiac History: Arrhythmia, Other Respiratory History: No Pertinent History Endocrine Medical History: No Pertinent History Musculoskeletal History: No Pertinent History GI Medical History: No Pertinent History History: No Pertinent History Psycho-Social History: Anxiety, Depression Female Reproductive Disorders: No Pertinent History Other Medical History: kidney stones; a-fib, lupus - Past Surgical History Past Surgical History: Yes Neuro Surgical History: No Pertinent History Cardiac: No Pertinent History Respiratory: No Pertinent History Gastrointestinal: Appendectomy Genitourinary: No Pertinent History Musculoskeletal: No Pertinent History Female Surgical History: Dilation & Curettage, Section, Tubal Ligation Other Surgical History: D&C, states ultrasound and stress showed irreg. 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 tubal 12/03/15-----recent chest pain l side pt states d/t tumor. - Social History Smoking Status: Former smoker How long have you smoked: 12 Exposure to second hand smoke: Yes Drug Use: none Patient Lives Alone: No Significant Family History: no pertinent family hx - Female History Hx Last Menstrual Period: 2 weeks ago Hx Now: No (tubal) - Nursing Vital Signs Nursing Vital Signs: Initial Vital Signs Temperature 97.6 F 05/24/22 17:32 Pulse Rate 99 H 05/24/22 17:32 Blood Pressure 133/76 05/24/22 17:32 O2 Sat by Pulse Oximetry 98 05/24/22 17:32 Pain Scale Pain Intensity 0 - Physical Exam General Appearance: no apparent distress, alert, other (Orthostatic blood pressures and heart rates showed a tachycardia from lying to standing) Eye Exam: PERRL/EOMI, eyes nml inspection Ears, Nose, Throat Exam: normal ENT inspection, TMs normal, pharynx normal, moist mucous membranes Neck Exam: normal inspection, non-tender, supple, full range of motion Respiratory Exam: normal breath sounds, lungs clear, No respiratory distress Cardiovascular Exam: regular rate/rhythm, normal heart sounds, normal peripheral pulses Gastrointestinal/Abdomen Exam: soft, normal bowel sounds, No tenderness, No mass Back Exam: normal inspection, normal range of motion, No CVA tenderness, No vertebral tenderness Extremity Exam: normal inspection, normal range of motion, pelvis stable Neurologic Exam: alert, oriented x 3, cooperative, normal mood/affect, nml cerebellar function, nml station & gait, sensation nml, No motor deficits Skin Exam: normal color, warm, dry, No rash Lymphatic Exam: No adenopathy SpO2: 97 - Course Nursing assessment & vital signs reviewed: Yes Ordered Tests: Active Orders 24 hr Category Date Time Status Orthostatic Vital Signs STAT Care 05/24/22 17:56 Active AMYLASE Stat Lab 05/24/22 18:00 Completed CBC W DIFF Stat Lab 05/24/22 18:00 Completed CMP Stat Lab 05/24/22 18:00 Completed LIPASE Stat Lab 05/24/22 18:00 Completed Lactic Acid Stat Lab 05/24/22 18:23 Completed UA W/RFX CULTURE Stat Lab 05/24/22 Ordered Medication Summary Generic Name Dose Route Start Last Admin Trade Name Freq PRN Reason Stop Dose Admin Sodium Chloride 1,000 mls @ 999 mls/hr 05/24/22 17:55 05/24/22 18:05 Sodium Chloride 0.9% 1000 Ml IV 05/24/22 18:55 999 mls/hr .[id number] STA Administration Discontinued Medications Generic Name Dose Route Start Last Admin Trade Name Lata PRN Reason Stop Dose Admin Sodium Chloride Confirm 05/24/22 18:02 Sodium Chloride 0.9% 1000 Ml Administered 05/24/22 18:03 Dose 1,000 mls @ ud .ROUTE .STK-MED ONE Lab/Rad Data: Laboratory Result Diagrams 05/24/22 18:00 05/24/22 18:00 Laboratory Results 05/24/22 05/24/22 05/24/22 Range/Units 18:23 18:00 18:00 WBC 7.5 (4.0-10.5) x10^3/uL RBC 4.78 (4.1-5.4) x10^6/uL Hgb 12.3 (12.0-16.0) g/dL Hct 40.0 (35-47) % MCV 83.7 (78-100) fL MCH 25.7 L (26-32) pg MCHC 30.8 L (32-36) g/dL RDW 15.0 H (11.5-14.0) % Plt Count 357 (150-450) x10^3/uL MPV 9.2 (7.5-11.0) fL Gran % 60.9 (36.0-66.0) % Immature Gran % (Auto) 0.3 (0.00-0.4) % Nucleat RBC Rel Count 0.0 (0.00-0.1) % Eos # (Auto) 0.18 (0-0.5) x10^3/uL Immature Gran # (Auto) 0.02 (0.00-0.03) x10^3u/L Absolute Lymphs (auto) 2.29 (1.0-4.6) x10^3/uL Absolute Monos (auto) 0.42 (0.0-1.3) x10^3/uL Absolute Nucleated RBC 0.00 (0.00-0.01) x10^3u/L Lymphocytes % 30.5 (24.0-44.0) % Monocytes % 5.6 (0.0-12.0) % Eosinophils % 2.4 (0.00-5.0) % Basophils % 0.3 (0.0-0.4) % Absolute Granulocytes 4.57 (1.4-6.9) x10^3/uL Basophils # 0.02 (0-0.4) x10^3/uL Sodium 138 (137-145) mmol/L Potassium 3.7 (3.5-5.1) mmol/L Chloride 108 H (98-107) mmol/L Carbon Dioxide 23 (22-30) mmol/L Anion Gap 11.3 (5-15) MEQ/L BUN 14 (7-17) mg/dL Creatinine 0.63 (0.52-1.04) mg/dL Estimated GFR > 60.0 ML/MIN Glucose 113 H (74-106) mg/dL Lactic Acid 1.3 (0.4-2.0) Calcium 9.4 (8.4-10.2) mg/dL Total Bilirubin 0.40 (0.2-1.3) mg/dL AST 31 (14-36) U/L ALT 22 (0-35) U/L Alkaline Phosphatase 77 (38-126) U/L Serum Total Protein 8.4 H (6.3-8.2) g/dL Albumin 4.4 (3.5-5.0) g/dL Amylase 57 (30-110) U/L Lipase 67 (23-300) U/L - Departure Departure Disposition: Home Clinical Impression: Dehydration Condition: Stable Critical Care Time: No Referrals: ERNESTO CRUMP NP [Primary Care Provider] - Follow up/PCP as directed Instructions: Dizziness, Nonvertigo, (DC)
[2022-05-24 18:54] LABS: Appearance CLEAR (CLEAR); Bacteria RARE /HPF (NEGATIVE); Bilirubin NEGATIVE (NEGATIVE); Epithelial Cells RARE /HPF (FEW); Glucose NEGATIVE (NEGATIVE); Ketones NEGATIVE (NEGATIVE); Mucus SLIGHT /HPF (NEGATIVE); RBC 0-2 /HPF (0-2); WBC 0-2 /HPF (0-5)
[2022-05-24 18:55] LABS: Dipstick done @ ? MAIN LAB; Nitrite NEGATIVE (NEGATIVE); Protein,Urine Dip NEGATIVE (Negative); RBC NEGATIVE Ery/ul (0-5); Specific Gravity >=1.030 (1.005-1.025); Urobilinogen 0.2 mg/dL (0-1)
[2022-05-24 18:56] LABS: Urine Cultured Indicated? NO
[2022-05-24 18:58] VITALS: BP 129/75; PULSE 79; O2SAT 99
== END 2022-05-24 19:32 | disposition home or self-care (01) ==
LOC: ED 16:55
DX: E86.0 Dehydration (principal); R42 Dizziness and giddiness; Z79.85 Long-term (current) use of injectable non-insulin antidiabetic drugs
CPT/HCPCS: 36000; 36415; 80053; 81015; 82150; 83605; 83690; 85025; 96360; 99283

== ENCOUNTER 2022-09-15 15:48 | Emergency (ER) | payer OTHER ==
--- NOTE | 2022-09-15 16:18 | ERPHSYRPT ---
- History of Present Illness Source: patient Exam Limitations: no limitations Patient Subjective Stated Complaint: EMS states "Her daughter found her passed out in the yard.". Pt stated "I remember telling someone that my heart was acting up again and I passed out." Triage Nursing Assessment: Pt presented alert and oriented X 3, skin pwd. Pt able to speak in clear full sentenecs pt in no apaprent respiratory distress. Pt resting comfortably on the bed stating she was having palpitations. Witnessed: by family (Her daughter) Prior Episodes: single episode today Timing/Duration: today Precipitating Factors: unknown Context: activity (In the ER) Loss of Consciousness: brief (seconds) Charcter of event(s): collapsed Hx Tetanus, Diphtheria Vaccination/Date Given: Yes Hx Influenza Vaccination/Date Given: Yes Hx Pneumococcal Vaccination/Date Given: No <JACI AWAD - Last Filed: 09/15/22 18:47> <KYRIE CHEN - Last Filed: 09/15/22 20:23> - History of Present Illness Time Seen by Provider: 09/15/22 16:18 Physician History: This is an obese 37-year-old white female patient of nurse practitioner Jose and apartment hotel manager Dr. Rodriguez and presents with a syncopal episode after palpitations of heart rate in the 180s and then a heart rate into the 40s followed by "passing out". Patient was found in her bedroom by her daughter per the patient report. Patient states in the past her apartment hotel manager, who she has not seen in a while, wanted to put in a pacemaker but she never went back to be evaluated for this. The patient denies chest pain. She denies shortness of breath. Patient has no visual changes. Patient is not taking any medications chronically per her report. Patient was brought into the hospital by the paramedics. Additional history was obtained from the paramedics and the patient's spouse. (JACI AWAD) Allergies/Adverse Reactions: ceftriaxone [From Rocephin] Allergy (Severe, Verified 05/24/22 17:46) hives and swelling hydromorphone HCl [From Dilaudid] Allergy (Severe, Verified 05/24/22 17:46) Anaphylactic Reaction azithromycin [From Zithromax] Allergy (Intermediate, Verified 05/24/22 17:46) Hives erythromycin base [Erythromycin Base] Allergy (Mild, Verified 05/24/22 17:46) Tightness of Throat cinnamon Allergy (Verified 05/24/22 17:46) clonazepam [From Klonopin] Allergy (Verified 05/24/22 17:46) Swelling clonidine Allergy (Verified 05/24/22 17:46) Hives prednisone Allergy (Verified 05/24/22 17:46) diphenhydramine [From Benadryl] Adverse Reaction (Intermediate, Verified 05/24/22 17:46) Vomiting lorazepam [From Ativan] Adverse Reaction (Verified 05/24/22 17:46) Swelling of Tongue and Lips morphine Adverse Reaction (Verified 05/24/22 17:46) Hives Home Medications: Aspirin EC 81 mg [Ecotrin 81 mg] 81 mg PO DAILY 09/15/22 [History] Travel Risk - International Travel Have you traveled outside of the country in past 3 weeks: No - Coronavirus Screening Are you exhibiting any of the following symptoms?: Yes Symptoms: Headaches/Body Aches/Fatigue Close contact with a COVID-19 positive Pt in past 14-21 Days: No - Vaccine Status Have you recieved a Covid-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: Yes 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: [employer] - Vaccination Dates Date of 2cond Vaccination (if applicable): None <JACI AWAD - Last Filed: 09/15/22 18:47> - Past Medical History Pertinent Past Medical History: Yes Neurological History: No Pertinent History ENT History: No Pertinent History Cardiac History: Arrhythmia, Other Respiratory History: No Pertinent History Endocrine Medical History: No Pertinent History Musculoskeletal History: No Pertinent History GI Medical History: No Pertinent History History: No Pertinent History Psycho-Social History: Anxiety, Depression Female Reproductive Disorders: No Pertinent History Other Medical History: kidney stones; a-fib, lupus - Past Surgical History Past Surgical History: Yes Neuro Surgical History: No Pertinent History Cardiac: No Pertinent History Respiratory: No Pertinent History Gastrointestinal: Appendectomy Genitourinary: No Pertinent History Musculoskeletal: No Pertinent History Female Surgical History: Dilation & Curettage, Section, Tubal Ligation Other Surgical History: D&C, states ultrasound and stress showed irreg. heartbeat and chest pain in past few months, apartment hotel manager unable to find irregular heartbeat. tubal 12/03/15-----recent chest pain l side pt states d/t tumor. - Social History Smoking Status: Former smoker How long have you smoked: 12 Exposure to second hand smoke: Yes Drug Use: none Patient Lives Alone: No Significant Family History: no pertinent family hx - Female History Hx Last Menstrual Period: 08/27/2022 Hx Now: No <JACI AWAD - Last Filed: 09/15/22 18:47> - Review of Systems Constitutional: No Symptoms Eyes: No Symptoms Ears, Nose, & Throat: No Symptoms Respiratory: No Symptoms Cardiac: Palpitations, Syncope Abdominal/Gastrointestinal: No Symptoms Genitourinary Symptoms: No Symptoms Musculoskeletal: No Symptoms Skin: No Symptoms Neurological: No Symptoms Psychological: No Symptoms Endocrine: No Symptoms Hematologic/Lymphatic: No Symptoms Immunological/Allergic: No Symptoms All Other Systems: Reviewed and Negative <JACI AWAD - Last Filed: 09/15/22 18:47> Physical Exam - Branden Coma Scale Best Eye Response ([place]): (4) open spontaneously Best Verbal Response ([place]): (5) oriented Best Motor Response ([place]): (6) obeys commands Branden Total: 15 - Physical Exam General Appearance: no apparent distress, alert, anxiety, obese Eye Exam: bilateral eye: normal inspection, PERRL, EOMI Ears, Nose, Throat Exam: normal ENT inspection, moist mucous membranes Neck Exam: normal inspection, non-tender, supple, full range of motion Respiratory: normal breath sounds, lungs clear, prolonged expirations, No chest tenderness, No respiratory distress Cardiovascular: tachycardia Gastrointestinal: soft, normal bowel sounds, No tenderness Pelvic Exam: not done Rectal Exam: not done Back Exam: normal inspection, normal range of motion, No CVA tenderness, No vertebral tenderness Extremity Exam: normal inspection, normal range of motion, pelvis stable Mental Status: alert, oriented x 3, cooperative sprayer hand Exam: normal hearing, normal speech, PERRL Coordination/Gait: normal finger to nose, normal gait, normal cerebellar function Motor/Sensory: no motor deficit, no sensory deficit, no pronator drift Skin Exam: normal color, warm, dry SpO2 Interpretation: normal SpO2: 97 O2 Delivery: Room Air <JACI AWAD - Last Filed: 09/15/22 18:47> - Nursing Vital Signs Nursing Vital Signs: Initial Vital Signs Temperature 98.7 F 09/15/22 15:52 Pulse Rate 109 H 09/15/22 15:52 Respiratory Rate 22 09/15/22 15:52 Blood Pressure 115/85 09/15/22 15:52 O2 Sat by Pulse Oximetry 97 09/15/22 15:52 Pain Scale Pain Intensity 3 - Course Nursing assessment & vital signs reviewed: Yes EKG Interpreted by Me: RATE (104), Sinus Tach, Left [place] Deviation, NORMAL INTERVALS, NORMAL QRS, NORMAL ST-T, Other (No acute ischemic changes on today's twelve-lead EKG that I am appreciating on my interpretation.) <JACI AWAD - Last Filed: 09/15/22 18:47> Ordered Tests: Active Orders 24 hr Category Date Time Status Java Lead Developer STAT Care 09/15/22 16:52 Active EKG-ER Only STAT Care 09/15/22 16:52 Active IV Insertion STAT Care 09/15/22 16:52 Active HEAD WITHOUT CONTRAST [CT] Stat Exams 09/15/22 18:36 Taken CBC W DIFF Stat Lab 09/15/22 17:05 Completed CMP Stat Lab 09/15/22 17:05 Completed D-DIMER QUANTITATIVE Stat Lab 09/15/22 17:05 Completed MAGNESIUM Stat Lab 09/15/22 17:05 Completed NT PRO BNPII Stat Lab 09/15/22 17:05 Completed TROPONIN Q4H Lab 09/15/22 17:05 Completed TROPONIN Q4H Lab 09/15/22 21:00 Ordered TROPONIN Q4H Lab 09/16/22 01:00 Ordered UA W/RFX UR CULTURE Stat Lab 09/15/22 18:02 Completed Holter Monitor ONCE RT 09/15/22 19:40 Completed Medication Summary Discontinued Medications Generic Name Dose Route Start Last Admin Trade Name Freq PRN Reason Stop Dose Admin Ondansetron HCl 4 mg 09/15/22 17:33 09/15/22 17:52 Ondansetron Hcl 4 Mg/2 Ml Vial IV 09/15/22 17:34 Not Given STAT ONE Ondansetron HCl Confirm 09/15/22 17:34 Ondansetron Hcl 4 Mg/2 Ml Vial Administered 09/15/22 17:35 Dose 4 mg .ROUTE .STK-MED ONE Ondansetron HCl 4 mg 09/15/22 17:53 09/15/22 17:56 Zofran 4 Mg/Udtablet Orally Disintegrating PO 09/15/22 17:54 4 mg STAT ONE Administration Ondansetron HCl Confirm 09/15/22 17:54 Zofran 4 Mg/Udtablet Orally Disintegrating Administered 09/15/22 17:55 Dose 4 mg .ROUTE .STK-MED ONE Lab/Rad Data: Laboratory Result Diagrams 09/15/22 17:05 09/15/22 17:05 Laboratory Results 09/15/22 09/15/22 09/15/22 Range/Units 18:02 17:05 17:05 WBC (4.0-10.5) x10^3/uL RBC (4.1-5.4) x10^6/uL Hgb (12.0-16.0) g/dL Hct (35-47) % MCV (78-100) fL MCH (26-32) pg MCHC (32-36) g/dL RDW (11.5-14.0) % Plt Count (150-450) x10^3/uL MPV (7.5-11.0) fL Gran % (36.0-66.0) % Immature Gran % (Auto) (0.00-0.4) % Nucleat RBC Rel Count (0.00-0.1) % Eos # (Auto) (0-0.5) x10^3/uL Immature Gran # (Auto) (0.00-0.03) x10^3u/L Absolute Lymphs (auto) (1.0-4.6) x10^3/uL Absolute Monos (auto) (0.0-1.3) x10^3/uL Absolute Nucleated RBC (0.00-0.01) x10^3u/L Lymphocytes % (24.0-44.0) % Monocytes % (0.0-12.0) % Eosinophils % (0.00-5.0) % Basophils % (0.0-0.4) % Absolute Granulocytes (1.4-6.9) x10^3/uL Basophils # (0-0.4) x10^3/uL D-Dimer 0.23 (0.0-0.50) mg/L Sodium (137-145) mmol/L Potassium (3.5-5.1) mmol/L Chloride (98-107) mmol/L Carbon Dioxide (22-30) mmol/L Anion Gap (5-15) MEQ/L BUN (7-17) mg/dL Creatinine (0.52-1.04) mg/dL Estimated GFR ML/MIN Glucose (74-106) mg/dL Calcium (8.4-10.2) mg/dL Magnesium (1.6-2.3) mg/dL Total Bilirubin (0.2-1.3) mg/dL AST (14-36) U/L ALT (0-35) U/L Alkaline Phosphatase (38-126) U/L Troponin I < 0.012 (0.000-0.034) ng/mL NT-Pro-B Natriuret Pep (<300) pg/mL Serum Total Protein (6.3-8.2) g/dL Albumin (3.5-5.0) g/dL Urine Color Yellow (Yellow) Urine Appearance Cloudy A (Clear) Urine pH 6.0 (4.6-8.0) Ur Specific [place] 1.025 (1.005-1.030) Urine Protein Negative (Negative) Urine Glucose (UA) Negative (Negative) mg/dL Urine Ketones Trace A (Negative) Urine Blood Negative (Negative) Urine Nitrite Negative (Negative) Urine Bilirubin Negative (Negative) Urine Urobilinogen 1.0 A (0.2) mg/dL Ur Leukocyte Esterase Negative (Negative) U Hyaline Cast (Auto) NONE SEEN (0-2) /LPF Urine Microscopic RBC 0-2 (0-5) /HPF Urine Microscopic WBC 3-5 (0-5) /HPF Ur Epithelial Cells Moderate A (None Seen) /HPF Urine Bacteria Few A (None Seen) /HPF Urine Culture Reflexed NO (NO) 09/15/22 09/15/22 Range/Units 17:05 17:05 WBC 8.3 (4.0-10.5) x10^3/uL RBC 4.63 (4.1-5.4) x10^6/uL Hgb 12.0 (12.0-16.0) g/dL Hct 38.9 (35-47) % MCV 84.0 (78-100) fL MCH 25.9 L (26-32) pg MCHC 30.8 L (32-36) g/dL RDW 15.4 H (11.5-14.0) % Plt Count 313 (150-450) x10^3/uL MPV 9.4 (7.5-11.0) fL Gran % 55.1 (36.0-66.0) % Immature Gran % (Auto) 0.5 H (0.00-0.4) % Nucleat RBC Rel Count 0.0 (0.00-0.1) % Eos # (Auto) 0.10 (0-0.5) x10^3/uL Immature Gran # (Auto) 0.04 H (0.00-0.03) x10^3u/L Absolute Lymphs (auto) 2.99 (1.0-4.6) x10^3/uL Absolute Monos (auto) 0.56 (0.0-1.3) x10^3/uL Absolute Nucleated RBC 0.00 (0.00-0.01) x10^3u/L Lymphocytes % 36.0 (24.0-44.0) % Monocytes % 6.7 (0.0-12.0) % Eosinophils % 1.2 (0.00-5.0) % Basophils % 0.5 (0.0-0.4) % Absolute Granulocytes 4.57 (1.4-6.9) x10^3/uL Basophils # 0.04 (0-0.4) x10^3/uL D-Dimer (0.0-0.50) mg/L Sodium 140 (137-145) mmol/L Potassium 3.8 (3.5-5.1) mmol/L Chloride 107 (98-107) mmol/L Carbon Dioxide 21 L (22-30) mmol/L Anion Gap 15.6 H (5-15) MEQ/L BUN 10 (7-17) mg/dL Creatinine 0.55 (0.52-1.04) mg/dL Estimated GFR > 60.0 ML/MIN Glucose 115 H (74-106) mg/dL Calcium 9.4 (8.4-10.2) mg/dL Magnesium 1.7 (1.6-2.3) mg/dL Total Bilirubin 0.20 (0.2-1.3) mg/dL AST 23 (14-36) U/L ALT 20 (0-35) U/L Alkaline Phosphatase 76 (38-126) U/L Troponin I (0.000-0.034) ng/mL NT-Pro-B Natriuret Pep < 20.0 (<300) pg/mL Serum Total Protein 7.9 (6.3-8.2) g/dL Albumin 4.1 (3.5-5.0) g/dL Urine Color (Yellow) Urine Appearance (Clear) Urine pH (4.6-8.0) Ur Specific [place] (1.005-1.030) Urine Protein (Negative) Urine Glucose (UA) (Negative) mg/dL Urine Ketones (Negative) Urine Blood (Negative) Urine Nitrite (Negative) Urine Bilirubin (Negative) Urine Urobilinogen (0.2) mg/dL Ur Leukocyte Esterase (Negative) U Hyaline Cast (Auto) (0-2) /LPF Urine Microscopic RBC (0-5) /HPF Urine Microscopic WBC (0-5) /HPF Ur Epithelial Cells (None Seen) /HPF Urine Bacteria (None Seen) /HPF Urine Culture Reflexed (NO) - Progress Progress: improved <JACI AWAD - Last Filed: 09/15/22 18:47> <KYRIE CHEN - Last Filed: 09/15/22 20:23> - Progress Progress Note: 09/15/22 18:50 I am signing out this patient to Dr. Chen at shift change. I reviewed the patient history and pending lab and x-ray study results with him. He will make final disposition. (JACI AWAD) 09/15/22 20:19 CT head negative. Will d/c patient home w/ halter monitor and f/u w/ Retail Planning Manager. (KYRIE CHEN) - Departure Departure Disposition: Home Critical Care Time: No <JACI AWAD - Last Filed: 09/15/22 18:47> - Departure Departure Disposition: Home Critical Care Time: No <KYRIE CHEN - Last Filed: 09/15/22 20:23> - Departure Clinical Impression: Syncopal episodes Condition: Stable Referrals: ERNESTO CRUMP NP [Primary Care Provider] - Follow up/PCP as directed Instructions: Syncope (Fainting) (DC) Additional Instructions: Halter monitor placed, follow up with Dr. Rodriguez in 3-5 days.
[2022-09-15 17:16] LABS: Absolute Neutrophil Ct (ANC) 4.57 x10^3/uL (1.4-6.9); BASOPHIL % 0.5 % (0.0-0.4); Basophil (Absolute #) 0.04 x10^3/uL (0-0.4); Eosinophil % 1.2 % (0.00-5.0); Hematocrit 38.9 % (35-47); IMMATURE GRAN # 0.04 x10^3u/L (0.00-0.03); IMMATURE GRAN % 0.5 % (0.00-0.4); Lymphocyte (Absolute #) 2.99 x10^3/uL (1.0-4.6); Mean Corpuscular Hemoglobin 25.9 pg (26-32); Mean Corpuscular Hgb Concent. 30.8 g/dL (32-36); Mean Platelet Volume 9.4 fL (7.5-11.0); Monocyte (Absolute #) 0.56 x10^3/uL (0.0-1.3); Monocytes % 6.7 % (0.0-12.0); Neutrophil % 55.1 % (36.0-66.0); Platelet Count 313 x10^3/uL (150-450); Red Blood Count 4.63 x10^6/uL (4.1-5.4); Red Cell Distribution Width 15.4 % (11.5-14.0); White Blood Count 8.3 x10^3/uL (4.0-10.5)
[2022-09-15] MEDS ORDERED: Zofran 4 MG/2 ML VIAL ONE (17:34)
[2022-09-15] MEDS: Zofran 4 MG/2 ML VIAL IV ONE ×2 (17:35→17:52)
[2022-09-15 17:48] LABS: ALBUMIN 4.1 g/dL (3.5-5.0); ALKALINE PHOSPHATASE 76 U/L (38-126); ANION GAP 15.6 MEQ/L (5-15); BLOOD UREA NITROGEN 10 mg/dL (7-17); CHLORIDE 107 mmol/L (98-107); Calcium 9.4 mg/dL (8.4-10.2); Carbon Dioxide 21 mmol/L (22-30); Creatinine 1 0.55 mg/dL (0.52-1.04); EST GLOMERULAR FILTRATION RATE > 60.0 ML/MIN; Glucose 115 mg/dL (74-106); MAGNESIUM 1.7 mg/dL (1.6-2.3); NT PRO BNPII < 20.0 pg/mL (<300); Potassium 3.8 mmol/L (3.5-5.1); SGOT/AST 23 U/L (14-36); SGPT/ALT 20 U/L (0-35); SODIUM 140 mmol/L (137-145); Total Protein 7.9 g/dL (6.3-8.2)
[2022-09-15] MEDS ORDERED: ZOFRAN ODT 4 MG PO ONE (17:53)
[2022-09-15] MEDS ORDERED: ZOFRAN ODT 4 MG ONE (17:54)
[2022-09-15 18:21] LABS: Appearance Cloudy (Clear); Bacteria Few /HPF (None Seen); Bilirubin Negative (Negative); Blood Negative (Negative); Epithelial Cells Moderate /HPF (None Seen); Glucose, Urine Negative (Negative); Hyaline Casts NONE SEEN /LPF (0-2); Ketones Trace (Negative); Leukocyte Esterase Negative (Negative); Nitrite Negative (Negative); Protein,Urine Dip Negative (Negative); RBC 0-2 /HPF (0-5); Specific Gravity 1.025 (1.005-1.030)
[2022-09-15 18:22] LABS: ADD URINE CULTURE? NO (NO)
[2022-09-15 19:10] VITALS: BP 125/83; O2SAT 98
[2022-09-15 20:25] VITALS: PULSE 84
--- NOTE | 2022-09-16 08:34 | XRAY ---
Indication: Syncope. Multiple contiguous axial images obtained through the head without contrast. Comparison: March 16, 2020 Normal appearing brain parenchyma, ventricles, and bony calvarium. Visualized paranasal sinuses and mastoid air cells are clear. Impression: Continued normal CT head without contrast exam.
== END 2022-09-15 20:35 | disposition home or self-care (01) ==
LOC: ED 15:48
DX: R55 Syncope and collapse (principal); R00.2 Palpitations
CPT/HCPCS: 36000; 36415; 70450; 80053; 81001; 83735; 83880; 84484; 85025; 85379; 93005; 93041; 93225; 99284; J2405; Q0162

== ENCOUNTER 2022-09-16 13:00 | Emergency (ER) | payer OTHER ==
--- NOTE | 2022-09-16 13:03 | ERPHSYRPT ---
- History of Present Illness Time Seen by Provider: 09/16/22 13:02 Historian: patient, family Exam Limitations: no limitations Physician History: This is a 37-year-old overweight white female who was seen in our emergency department yesterday and had an extensive work-up for syncopal episode. Included in that work-up was a normal troponin level, normal D-dimer, CT scan of the head which was normal. Because of the syncopal episode she was placed on a Holter monitor. Patient was discharged to home in stable condition and has returned to the emergency department secondary to chest pain less than 24 hours after her last evaluation here in this emergency department. Patient states that while she was driving in her car she started feeling pain in her left anterior chest without radiation and she noticed that her right wrist watch heart rate increased to the 180s again and then dropped to the 40s. The additional history was obtained from the paramedics who brought the patient into the emergency department. Timing/Duration: today Quality: aching Location: other Chest Pain Radiation: no radiation (Left anterior chest) Severity of Pain-Max: mild (To moderate) Severity of Pain-Current: mild Associated Symptoms: denies symptoms Prior Chest Pain/Cardiac Workup: no prior cardiac workup, recently seen/treated Nitro Today/Relief: no nitro taken today Aspirin Treatment Today: 81 mg x 4, provided by ED Allergies/Adverse Reactions: ceftriaxone [From Rocephin] Allergy (Severe, Verified 09/16/22 13:03) hives and swelling hydromorphone HCl [From Dilaudid] Allergy (Severe, Verified 09/16/22 13:03) Anaphylactic Reaction azithromycin [From Zithromax] Allergy (Intermediate, Verified 09/16/22 13:03) Hives erythromycin base [Erythromycin Base] Allergy (Mild, Verified 09/16/22 13:03) Tightness of Throat cinnamon Allergy (Verified 09/16/22 13:03) clonazepam [From Klonopin] Allergy (Verified 09/16/22 13:03) Swelling clonidine Allergy (Verified 09/16/22 13:03) Hives prednisone Allergy (Verified 09/16/22 13:03) diphenhydramine [From Benadryl] Adverse Reaction (Intermediate, Verified 09/16/22 13:03) Vomiting lorazepam [From Ativan] Adverse Reaction (Verified 09/16/22 13:03) Swelling of Tongue and Lips morphine Adverse Reaction (Verified 09/16/22 13:03) Hives Home Medications: Aspirin EC 81 mg [Ecotrin 81 mg] 81 mg PO DAILY 09/15/22 [History] Hx Tetanus, Diphtheria Vaccination/Date Given: Yes Hx Influenza Vaccination/Date Given: Yes Hx Pneumococcal Vaccination/Date Given: No Travel Risk - International Travel Have you traveled outside of the country in past 3 weeks: No - Coronavirus Screening Are you exhibiting any of the following symptoms?: No Close contact with a COVID-19 positive Pt in past 14-21 Days: No - Vaccine Status Have you recieved a Covid-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: Yes 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[employer] - Vaccination Dates Date of 2cond Vaccination (if applicable): None - Review of Systems Constitutional: No Symptoms Eyes: No Symptoms Ears, Nose, & Throat: No Symptoms Respiratory: No Symptoms Cardiac: Chest Pain Abdominal/Gastrointestinal: No Symptoms Genitourinary Symptoms: No Symptoms Musculoskeletal: No Symptoms Skin: No Symptoms Neurological: No Symptoms Psychological: No Symptoms Endocrine: No Symptoms Hematologic/Lymphatic: No Symptoms Immunological/Allergic: No Symptoms All Other Systems: Reviewed and Negative - Past Medical History Pertinent Past Medical History: Yes Neurological History: No Pertinent History ENT History: No Pertinent History Cardiac History: Arrhythmia, Other Respiratory History: No Pertinent History Endocrine Medical History: No Pertinent History Musculoskeletal History: No Pertinent History GI Medical History: No Pertinent History History: No Pertinent History Psycho-Social History: Anxiety, Depression Female Reproductive Disorders: No Pertinent History Other Medical History: kidney stones; a-fib, lupus - Past Surgical History Past Surgical History: Yes Neuro Surgical History: No Pertinent History Cardiac: No Pertinent History Respiratory: No Pertinent History Gastrointestinal: Appendectomy Genitourinary: No Pertinent History Musculoskeletal: No Pertinent History Female Surgical History: Dilation & Curettage, Section, Tubal Ligation Other Surgical History: D&C, states ultrasound and stress showed irreg. 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 tubal 12/03/15-----recent chest pain l side pt states d/t tumor. - Social History Smoking Status: Former smoker How long have you smoked: 12 Exposure to second hand smoke: Yes Drug Use: none Patient Lives Alone: No Significant Family History: no pertinent family hx - Nursing Vital Signs Nursing Vital Signs: Initial Vital Signs Temperature 97.9 F 09/16/22 13:04 Pulse Rate 104 H 09/16/22 13:04 Respiratory Rate 24 09/16/22 13:04 Blood Pressure 94/58 09/16/22 13:04 O2 Sat by Pulse Oximetry 99 09/16/22 13:04 Pain Scale Pain Intensity 5 - Physical Exam General Appearance: no apparent distress, alert, anxiety, obese Eye Exam: PERRL/EOMI, eyes nml inspection Ears, Nose, Throat Exam: normal ENT inspection Neck Exam: normal inspection, non-tender, supple, full range of motion Respiratory Exam: normal breath sounds, chest tenderness (Left anterior chest localized without radiation), lungs clear, airway intact, No respiratory distress Cardiovascular Exam: regular rate/rhythm, normal heart sounds, normal peripheral pulses Gastrointestinal/Abdomen Exam: soft, normal bowel sounds, No tenderness Pelvic Exam: not done Rectal Exam: not done Back Exam: normal inspection, normal range of motion, No CVA tenderness, No vertebral tenderness Extremity Exam: normal inspection, normal range of motion, pelvis stable Neurologic Exam: alert, oriented x 3, cooperative, policy officer II-XII nml as tested Skin Exam: normal color, warm, dry Lymphatic Exam: No adenopathy SpO2 Interpretation: normal O2 Delivery: Room Air - Course Nursing assessment & vital signs reviewed: Yes EKG Interpreted by Me: RATE ([id number]), Sinus Tach, Left Hiltons Deviation, NORMAL INT ERVALS, NORMAL QRS, NORMAL ST-T, Other (No acute ischemic changes on today's twelve-lead EKG. No change from twelve-lead EKG that was performed yesterday on 09/15/2022) Ordered Tests: Active Orders 24 hr Category Date Time Status Warehouse Selector STAT Care 09/16/22 13:04 Active EKG-ER Only STAT Care 09/16/22 13:04 Active IV Insertion STAT Care 09/16/22 13:04 Active Pulse Oximetry (ED) STAT Care 09/16/22 13:04 Active CHEST 1 VIEW (PORTABLE) Stat Exams 09/16/22 13:18 Completed CBC W DIFF Stat Lab 09/16/22 13:05 Completed CMP Stat Lab 09/16/22 13:05 Completed D-DIMER QUANTITATIVE Stat Lab 09/16/22 13:05 Completed PROTIME WITH INR Stat Lab 09/16/22 13:05 Completed TROPONIN Q4H Lab 09/16/22 13:05 Completed TROPONIN Q4H Lab 09/16/22 17:15 Ordered TROPONIN Q4H Lab 09/16/22 21:15 Ordered Medication Summary Discontinued Medications Generic Name Dose Route Start Last Admin Trade Name Freq PRN Reason Stop Dose Admin Aspirin 324 mg 09/16/22 13:04 09/16/22 13:12 Aspirin 81 Mg Tab.Chew PO 09/16/22 13:05 Not Given STAT ONE Lab/Rad Data: Laboratory Result Diagrams 09/16/22 13:05 09/16/22 13:05 Laboratory Results 09/16/22 09/16/22 09/16/22 Range/Units 13:05 13:05 13:05 WBC (4.0-10.5) x10^3/uL RBC (4.1-5.4) x10^6/uL Hgb (12.0-16.0) g/dL Hct (35-47) % MCV (78-100) fL MCH (26-32) pg MCHC (32-36) g/dL RDW (11.5-14.0) % Plt Count (150-450) x10^3/uL MPV (7.5-11.0) fL Gran % (36.0-66.0) % Immature Gran % (Auto) (0.00-0.4) % Nucleat RBC Rel Count (0.00-0.1) % Eos # (Auto) (0-0.5) x10^3/uL Immature Gran # (Auto) (0.00-0.03) x10^3u/L Absolute Lymphs (auto) (1.0-4.6) x10^3/uL Absolute Monos (auto) (0.0-1.3) x10^3/uL Absolute Nucleated RBC (0.00-0.01) x10^3u/L Lymphocytes % (24.0-44.0) % Monocytes % (0.0-12.0) % Eosinophils % (0.00-5.0) % Basophils % (0.0-0.4) % Absolute Granulocytes (1.4-6.9) x10^3/uL Basophils # (0-0.4) x10^3/uL PT 10.1 (9.4-12.5) SECONDS INR 0.92 (0.8-3.0) D-Dimer 0.29 (0.0-0.50) mg/L Sodium 139 (137-145) mmol/L Potassium 3.5 (3.5-5.1) mmol/L Chloride 106 (98-107) mmol/L Carbon Dioxide 19 L (22-30) mmol/L Anion Gap 17.6 H (5-15) MEQ/L BUN 10 (7-17) mg/dL Creatinine 0.54 (0.52-1.04) mg/dL Estimated GFR > 60.0 ML/MIN Glucose 128 H (74-106) mg/dL Calcium 9.3 (8.4-10.2) mg/dL Total Bilirubin 0.40 (0.2-1.3) mg/dL AST 27 (14-36) U/L ALT 22 (0-35) U/L Alkaline Phosphatase 72 (38-126) U/L Troponin I < 0.012 (0.000-0.034) ng/mL Serum Total Protein 8.3 H (6.3-8.2) g/dL Albumin 4.4 (3.5-5.0) g/dL 09/16/22 Range/Units 13:05 WBC 9.3 (4.0-10.5) x10^3/uL RBC 4.73 (4.1-5.4) x10^6/uL Hgb 12.3 (12.0-16.0) g/dL Hct 39.2 (35-47) % MCV 82.9 (78-100) fL MCH 26.0 (26-32) pg MCHC 31.4 L (32-36) g/dL RDW 15.2 H (11.5-14.0) % Plt Count 346 (150-450) x10^3/uL MPV 9.2 (7.5-11.0) fL Gran % 61.7 (36.0-66.0) % Immature Gran % (Auto) 0.2 (0.00-0.4) % Nucleat RBC Rel Count 0.0 (0.00-0.1) % Eos # (Auto) 0.08 (0-0.5) x10^3/uL Immature Gran # (Auto) 0.02 (0.00-0.03) x10^3u/L Absolute Lymphs (auto) 2.87 (1.0-4.6) x10^3/uL Absolute Monos (auto) 0.54 (0.0-1.3) x10^3/uL Absolute Nucleated RBC 0.00 (0.00-0.01) x10^3u/L Lymphocytes % 31.0 (24.0-44.0) % Monocytes % 5.8 (0.0-12.0) % Eosinophils % 0.9 (0.00-5.0) % Basophils % 0.4 (0.0-0.4) % Absolute Granulocytes 5.71 (1.4-6.9) x10^3/uL Basophils # 0.04 (0-0.4) x10^3/uL PT (9.4-12.5) SECONDS INR (0.8-3.0) D-Dimer (0.0-0.50) mg/L Sodium (137-145) mmol/L Potassium (3.5-5.1) mmol/L Chloride (98-107) mmol/L Carbon Dioxide (22-30) mmol/L Anion Gap (5-15) MEQ/L BUN (7-17) mg/dL Creatinine (0.52-1.04) mg/dL Estimated GFR ML/MIN Glucose (74-106) mg/dL Calcium (8.4-10.2) mg/dL Total Bilirubin (0.2-1.3) mg/dL AST (14-36) U/L ALT (0-35) U/L Alkaline Phosphatase (38-126) U/L Troponin I (0.000-0.034) ng/mL Serum Total Protein (6.3-8.2) g/dL Albumin (3.5-5.0) g/dL - Progress Progress: improved, re-examined Air Movement: good Progress Note: 09/16/22 14:33 Chest x-ray shows no acute cardiopulmonary process. This x-ray was read by the radiologist and I reviewed the impression. This patient's medical issue is 1 of moderate complexity. The level of complexity in the work-up performed is based on the patient's past medical history, review of the patient's medication list, review of the patient's medication allergy list, history of present illness and physical findings on examination. The work-up performed was placement of intravenous line, performing a twelve-lead EKG, CBC, CMP, D-dimer, troponin level and chest x-ray. She was on the library monitor and pulse oximetry during her stay in the emergency department. I reviewed the results of the work-up. Patient's work-up today is negative. I spoke with Dr. Wynne(? Spelling) who is the technician plant and maintenance covering for Dr. 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 I reviewed the history of this patient and the results of both the work-up was on 09/15/2022 and 09/16/2022. She suggested that we interrogate the Holter monitor that was o n her when the event occurred. She stated the patient could be discharged to home with a Holter monitor again in place and follow-up with her technician plant and maintenance on 09/19/2022. I agree with this plan. Medical Desision Making - Independent Historian Additional History obtained from: Net Lead Developer/EMT - Discussion of managment Care discussed with:: specialist Reviewed:: Test results, Need for additional workup Agreed on:: Treatment plan - Diagnostic Testing Diagnostic test were ordered, analyzed, and reviewed by me: Yes Radiological Interpretation: Reviewed by me, Teleradiologist Report - Risk of complications Low Risk: Low risk of morbidity from additional dx testing or treatment - Departure Departure Disposition: Home Clinical Impression: Chest pain Condition: Stable Critical Care Time: No Referrals: ERNESTO CRUMP NP [Primary Care Provider] - Follow up/PCP as directed Additional Instructions: Continue the Holter monitor. Follow-up with your technician plant and maintenance by phone today and keep that appointment for further evaluation management.
[2022-09-16] MEDS ORDERED: BABY ASPIRIN 81 MG CHEW PO ONE (13:04)
[2022-09-16 13:14] LABS: Absolute Neutrophil Ct (ANC) 5.71 x10^3/uL (1.4-6.9); BASOPHIL % 0.4 % (0.0-0.4); Basophil (Absolute #) 0.04 x10^3/uL (0-0.4); Eosinophil % 0.9 % (0.00-5.0); Eosinophil (Absolute #) 0.08 x10^3/uL (0-0.5); Hematocrit 39.2 % (35-47); Hemoglobin 12.3 g/dL (12.0-16.0); IMMATURE GRAN # 0.02 x10^3u/L (0.00-0.03); IMMATURE GRAN % 0.2 % (0.00-0.4); Lymphocyte (Absolute #) 2.87 x10^3/uL (1.0-4.6); Mean Cell Volume 82.9 fL (78-100); Mean Corpuscular Hgb Concent. 31.4 g/dL (32-36); Mean Platelet Volume 9.2 fL (7.5-11.0); Monocyte (Absolute #) 0.54 x10^3/uL (0.0-1.3); Monocytes % 5.8 % (0.0-12.0); Neutrophil % 61.7 % (36.0-66.0); Platelet Count 346 x10^3/uL (150-450); Red Blood Count 4.73 x10^6/uL (4.1-5.4); Red Cell Distribution Width 15.2 % (11.5-14.0); White Blood Count 9.3 x10^3/uL (4.0-10.5)
[2022-09-16 13:33] LABS: ALBUMIN 4.4 g/dL (3.5-5.0); ALKALINE PHOSPHATASE 72 U/L (38-126); ANION GAP 17.6 MEQ/L (5-15); BLOOD UREA NITROGEN 10 mg/dL (7-17); CHLORIDE 106 mmol/L (98-107); Calcium 9.3 mg/dL (8.4-10.2); Carbon Dioxide 19 mmol/L (22-30); Creatinine 1 0.54 mg/dL (0.52-1.04); EST GLOMERULAR FILTRATION RATE > 60.0 ML/MIN; Glucose 128 mg/dL (74-106); Potassium 3.5 mmol/L (3.5-5.1); SGOT/AST 27 U/L (14-36); SGPT/ALT 22 U/L (0-35); SODIUM 139 mmol/L (137-145); Total Protein 8.3 g/dL (6.3-8.2)
--- NOTE | 2022-09-16 13:34 | XRAY ---
Indication: Chest pain. Comparison: September 17, 2021 Portable chest again demonstrates normal heart, lungs, and bony thorax.
[2022-09-16 13:35] LABS: D-DIMER QUANTITATIVE 0.29 mg/L (0.0-0.50); INR 0.92 (0.8-3.0); PROTIME 10.1 SECONDS (9.4-12.5)
[2022-09-16 14:22] VITALS: PULSE 92
[2022-09-16 15:00] VITALS: BP 116/71; O2SAT 98
== END 2022-09-16 15:03 | disposition home or self-care (01) ==
LOC: ED 13:00
DX: R07.9 Chest pain, unspecified (principal)
CPT/HCPCS: 36000; 36415; 71045; 80053; 84484; 85025; 85379; 85610; 93005; 93041; 93225; 94760; 99284

== ENCOUNTER 2022-10-02 16:11 | Emergency (ER) | payer OTHER ==
--- NOTE | 2022-10-02 16:52 | ERPHSYRPT ---
- History of Present Illness Time Seen by Provider: 10/02/22 16:23 Source: patient Exam Limitations: no limitations Patient Subjective Stated Complaint: Chest pain that started approx one hour prior to arrival to ER Triage Nursing Assessment: Patient arrived by ambulance. She is alert and oriented. NO SOB. No cough. ACEVEDO WNL. Skin tone normal with spray horn present. No edema. Physician History: Patient is here with left-sided chest pain and tachycardia. Patient states that she does have a long history of this. Patient last saw a employment clerk for this over a year ago. They recommended a pacemaker at that point in time. Patient was seen 4 times at the end of last month for this. No obvious cause could be found. Patient had normal troponins, D-dimers, work-up at that point in time. Upon walking into the patient's room, patient immediately request discharge home. She states that she is no longer having symptoms. Heart rate is normal on the monitor. EKG has already been performed. This shows sinus rhythm without ST changes. Allergies/Adverse Reactions: ceftriaxone [From Rocephin] Allergy (Severe, Verified 10/02/22 16:24) hives and swelling hydromorphone HCl [From Dilaudid] Allergy (Severe, Verified 10/02/22 16:24) Anaphylactic Reaction azithromycin [From Zithromax] Allergy (Intermediate, Verified 10/02/22 16:24) Hives erythromycin base [Erythromycin Base] Allergy (Mild, Verified 10/02/22 16:24) Tightness of Throat cinnamon Allergy (Verified 10/02/22 16:24) clonazepam [From Klonopin] Allergy (Verified 10/02/22 16:24) Swelling clonidine Allergy (Verified 10/02/22 16:24) Hives prednisone Allergy (Verified 10/02/22 16:24) diphenhydramine [From Benadryl] Adverse Reaction (Intermediate, Verified 10/02/22 16:24) Vomiting lorazepam [From Ativan] Adverse Reaction (Verified 10/02/22 16:24) Swelling of Tongue and Lips morphine Adverse Reaction (Verified 10/02/22 16:24) Hives Home Medications: Aspirin EC 81 mg [Ecotrin 81 mg] 81 mg PO DAILY 09/15/22 [History] Hx Tetanus, Diphtheria Vaccination/Date Given: Yes Hx Influenza Vaccination/Date Given: Yes Hx Pneumococcal Vaccination/Date Given: No Immunizations Up to Date: No Travel Risk - International Travel Have you traveled outside of the country in past 3 weeks: No - Coronavirus Screening Are you exhibiting any of the following symptoms?: No Close contact with a COVID-19 positive Pt in past 14-21 Days: No - Vaccine Status Have you recieved a Covid-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: Yes 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[employer] - Vaccination Dates Date of 2cond Vaccination (if applicable): None - Review of Systems Constitutional: No Fever, No Chills Eyes: No Symptoms Ears, Nose, & Throat: No Symptoms Respiratory: No Cough, No Dyspnea Cardiac: Chest Pain, Palpitations, No Edema, No Syncope Abdominal/Gastrointestinal: No Abdominal Pain, No Nausea, No Vomiting, No Diarrhea Genitourinary Symptoms: No Dysuria Musculoskeletal: No Back Pain, No Neck Pain Skin: No Rash Neurological: No Dizziness, No Focal Weakness, No Sensory Changes Psychological: No Symptoms Endocrine: No Symptoms All Other Systems: Reviewed and Negative - Past Medical History Pertinent Past Medical History: Yes Neurological History: No Pertinent History ENT History: No Pertinent History Cardiac History: Arrhythmia, Other Respiratory History: No Pertinent History Endocrine Medical History: No Pertinent History Musculoskeletal History: No Pertinent History GI Medical History: No Pertinent History History: No Pertinent History Psycho-Social History: Anxiety, Depression Female Reproductive Disorders: No Pertinent History Other Medical History: kidney stones; a-fib, lupus - Past Surgical History Past Surgical History: Yes Neuro Surgical History: No Pertinent History Cardiac: No Pertinent History Respiratory: No Pertinent History Gastrointestinal: Appendectomy Genitourinary: No Pertinent History Musculoskeletal: No Pertinent History Female Surgical History: Dilation & Curettage, Section, Tubal Ligation Other Surgical History: recent chest pain left side; pt states d/t tumor. - Social History Smoking Status: Former smoker How long have you smoked: 12 Exposure to second hand smoke: Yes Drug Use: none Patient Lives Alone: No Significant Family History: no pertinent family hx - Female History Hx Now: No - Nursing Vital Signs Nursing Vital Signs: Initial Vital Signs Temperature 97.6 F 10/02/22 16:11 Pulse Rate 87 10/02/22 16:11 Respiratory Rate 17 10/02/22 16:11 Blood Pressure 111/67 10/02/22 16:11 O2 Sat by Pulse Oximetry 96 10/02/22 16:11 Pain Scale Pain Intensity 2 - Physical Exam General Appearance: no apparent distress, alert Eye Exam: PERRL/EOMI, eyes nml inspection Ears, Nose, Throat Exam: normal ENT inspection, pharynx normal, moist mucous membranes Neck Exam: normal inspection, non-tender, supple, full range of motion Respiratory Exam: normal breath sounds, lungs clear, No respiratory distress Cardiovascular Exam: regular rate/rhythm, normal heart sounds, normal peripheral pulses Gastrointestinal/Abdomen Exam: soft, normal bowel sounds, No tenderness, No mass Back Exam: normal inspection, normal range of motion, No CVA tenderness, No vertebral tenderness Extremity Exam: normal inspection, normal range of motion, pelvis stable Neurologic Exam: alert, oriented x 3, cooperative, normal mood/affect, sensation nml, No motor deficits Skin Exam: normal color, warm, dry, No rash Lymphatic Exam: No adenopathy SpO2: 96 - Course Nursing assessment & vital signs reviewed: Yes EKG Interpreted by Me: Sinus Rhythm (Sinus rhythm, no ST changes, no signs of ischemia) - Progress Progress: improved Progress Note: 10/02/22 18:01 Patient's symptoms have resolved at this point time. Patient states that she has recently worn a Holter monitor for the symptoms and problems. She states that she has not seen the PCP since her Holter monitor. I told her that she should probably call for seen tomorrow morning for reexam and finding out this information. It was at this point time I did discuss following back up with her employment clerk. I did offer IV, basic labs, continued work-up. Patient overall declines after discussion of the risks and benefits. This is because she states she has had several recent negative work-ups. She is no longer feeling tachycardia with chest pain. I feel this is reasonable. Patient will follow-up here for new or changing symptoms. Counseled pt/family regarding: diagnosis, need for follow-up Medical Desision Making - External Record(s) Reviewed Records reviewed as a part of evaluation & management: Discharge Summary - Departure Departure Disposition: Home Clinical Impression: Atypical chest pain, Tachycardia Condition: Stable Critical Care Time: No Referrals: ERNESTO CRUMP NP [Primary Care Provider] - Follow up/PCP as directed Instructions: Chest Pain (DC)
[2022-10-02 17:06] VITALS: BP 106/69; PULSE 84
[2022-10-02 18:02] VITALS: O2SAT 96
== END 2022-10-02 17:04 | disposition home or self-care (01) ==
LOC: ED 16:11
DX: R07.89 Other chest pain (principal); R00.0 Tachycardia, unspecified
CPT/HCPCS: 99281

== ENCOUNTER 2022-12-31 15:11 | Emergency (ER) | payer OTHER ==
[2022-12-31] MEDS ORDERED: Sodium Chloride 0.9% 1000 ML 1,000 ML IV STA (15:16)
[2022-12-31 15:19] VITALS: RESP 18; TEMP 97.8
[2022-12-31 15:42] LABS: Absolute Neutrophil Ct (ANC) 5.09 x10^3/uL (1.4-6.9); BASOPHIL % 0.4 % (0.0-0.4); Basophil (Absolute #) 0.03 x10^3/uL (0-0.4); Eosinophil % 0.3 % (0.00-5.0); Eosinophil (Absolute #) 0.02 x10^3/uL (0-0.5); Hematocrit 36.9 % (35-47); Hemoglobin 11.6 g/dL (12.0-16.0); IMMATURE GRAN # 0.03 x10^3u/L (0.00-0.03); IMMATURE GRAN % 0.4 % (0.00-0.4); Lymphocyte (Absolute #) 2.41 x10^3/uL (1.0-4.6); Lymphocytes % 30.1 % (24.0-44.0); Mean Cell Volume 83.1 fL (78-100); Mean Corpuscular Hemoglobin 26.1 pg (26-32); Mean Corpuscular Hgb Concent. 31.4 g/dL (32-36); Mean Platelet Volume 9.3 fL (7.5-11.0); Monocyte (Absolute #) 0.42 x10^3/uL (0.0-1.3); Monocytes % 5.3 % (0.0-12.0); Neutrophil % 63.5 % (36.0-66.0); Platelet Count 323 x10^3/uL (150-450); Red Blood Count 4.44 x10^6/uL (4.1-5.4); Red Cell Distribution Width 15.5 % (11.5-14.0)
[2022-12-31] MEDS ORDERED: Sodium Chloride 0.9% 1000 ML 1,000 ML ONE (15:42)
[2022-12-31 15:55] LABS: ALBUMIN 4.1 g/dL (3.5-5.0); ALKALINE PHOSPHATASE 69 U/L (38-126); ANION GAP 14.3 MEQ/L (5-15); BLOOD UREA NITROGEN 8 mg/dL (7-17); CHLORIDE 108 mmol/L (98-107); Carbon Dioxide 18 mmol/L (22-30); Creatinine 1 0.57 mg/dL (0.52-1.04); EST GLOMERULAR FILTRATION RATE > 60.0 ML/MIN; Glucose 98 mg/dL (74-106); Potassium 3.5 mmol/L (3.5-5.1); SGOT/AST 20 U/L (14-36); SGPT/ALT 20 U/L (0-35); SODIUM 136 mmol/L (137-145); Total Protein 7.6 g/dL (6.3-8.2)
--- NOTE | 2022-12-31 15:59 | ERPHSYRPT ---
- History of Present Illness Time Seen by Provider: 12/31/22 15:56 Source: patient, EMS Exam Limitations: no limitations Patient Subjective Stated Complaint: pt here for chest pain to center of chest for a couple hours, she has been under stress today, Triage Nursing Assessment: pt alert, arrived per ambulance, skin w/d/p. 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 She also states that sometimes her heart rate drops. She started having a chest pain couple 3 hours ago. She states that she is under lots of stress recently. When she came to the emergency room she was denying any chest pain but was complaining of some palpitation with feeling that her heart rate is going up and down. Patient is undergoing evaluation for palpitation. Timing/Duration: today Activities at Onset: emotional stress Location: substernal Chest Pain Radiation: no radiation Severity of Pain-Max: mild Severity of Pain-Current: mild Modifying Factors: Improves With: nothing Nitro Today/Relief: no nitro taken today Aspirin Treatment Today: no aspirin today Associated Symptoms: chest pain, No nausea, No vomiting, No abdominal pain, No shortness of breath, No headaches, No loss of appetite, No syncope, No seizure, No weakness Prior Chest Pain/Cardiac Workup: recently seen/treated Allergies/Adverse Reactions: ceftriaxone [From Rocephin] Allergy (Severe, Verified 10/02/22 16:24) hives and swelling hydromorphone HCl [From Dilaudid] Allergy (Severe, Verified 10/02/22 16:24) Anaphylactic Reaction azithromycin [From Zithromax] Allergy (Intermediate, Verified 10/02/22 16:24) Hives erythromycin base [Erythromycin Base] Allergy (Mild, Verified 10/02/22 16:24) Tightness of Throat cinnamon Allergy (Verified 10/02/22 16:24) clonazepam [From Klonopin] Allergy (Verified 10/02/22 16:24) Swelling clonidine Allergy (Verified 10/02/22 16:24) Hives prednisone Allergy (Verified 10/02/22 16:24) diphenhydramine [From Benadryl] Adverse Reaction (Intermediate, Verified 12/18 16:24) Vomiting lorazepam [From Ativan] Adverse Reaction (Verified 10/02/22 16:24) Swelling of Tongue and Lips morphine Adverse Reaction (Verified 10/02/22 16:24) Hives Home Medications: Aspirin EC 81 mg [Ecotrin 81 mg] 81 mg PO DAILY 09/15/22 [History] Hx Tetanus, Diphtheria Vaccination/Date Given: Yes Hx Influenza Vaccination/Date Given: Yes Hx Pneumococcal Vaccination/Date Given: No Immunizations Up to Date: Yes Travel Risk - International Travel Have you traveled outside of the country in past 3 weeks: No - Coronavirus Screening Are you exhibiting any of the following symptoms?: No Close contact with a COVID-19 positive Pt in past 14-21 Days: No - Vaccine Status Have you recieved a Covid-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: Yes 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: [employer] - Vaccination Dates Date of 2cond Vaccination (if applicable): None - Review of Systems Constitutional: No Fever, No Chills Eyes: No Symptoms Ears, Nose, & Throat: No Symptoms Respiratory: No Cough, No Dyspnea Cardiac: Chest Pain, Palpitations, No Edema, No Syncope Abdominal/Gastrointestinal: No Abdominal Pain, No Nausea, No Vomiting, No Diarrhea Genitourinary Symptoms: No Dysuria Musculoskeletal: No Back Pain, No Neck Pain Skin: No Rash Neurological: No Dizziness, No Focal Weakness, No Sensory Changes Psychological: No Symptoms Endocrine: No Symptoms All Other Systems: Reviewed and Negative - Past Medical History Pertinent Past Medical History: Yes Neurological History: No Pertinent History ENT History: No Pertinent History Cardiac History: Arrhythmia, Other Respiratory History: No Pertinent History Endocrine Medical History: No Pertinent History Musculoskeletal History: No Pertinent History GI Medical History: No Pertinent History History: No Pertinent History Psycho-Social History: Anxiety, Depression Female Reproductive Disorders: No Pertinent History Other Medical History: kidney stones; a-fib, lupus - Past Surgical History Past Surgical History: Yes Neuro Surgical History: No Pertinent History Cardiac: No Pertinent History Respiratory: No Pertinent History Gastrointestinal: Appendectomy Genitourinary: No Pertinent History Musculoskeletal: No Pertinent History Female Surgical History: Dilation & Curettage, Section, Tubal Ligation Other Surgical History: recent chest pain left side; pt states d/t tumor. - Social History Smoking Status: Former smoker How long have you smoked: 12 Exposure to second hand smoke: Yes Drug Use: none Patient Lives Alone: No Significant Family History: no pertinent family hx - Female History Hx Last Menstrual Period: adria Hx Now: No - Nursing Vital Signs Nursing Vital Signs: Initial Vital Signs Temperature 97.8 F 12/31/22 15:14 Pulse Rate 91 H 12/31/22 15:14 Respiratory Rate 18 12/31/22 15:14 Blood Pressure 111/63 12/31/22 15:14 O2 Sat by Pulse Oximetry 98 12/31/22 15:14 Pain Scale Pain Intensity 7 - Physical Exam General Appearance: no apparent distress, alert Eye Exam: PERRL/EOMI, eyes nml inspection Ears, Nose, Throat Exam: normal ENT inspection, moist mucous membranes Neck Exam: normal inspection, non-tender, supple Respiratory Exam: normal breath sounds, lungs clear, No respiratory distress Cardiovascular Exam: regular rate/rhythm, normal heart sounds, normal peripheral pulses, capillary refill <2 sec, No edema, No pulse deficit Gastrointestinal/Abdomen Exam: soft, No tenderness, No mass Back Exam: normal inspection, No CVA tenderness, No vertebral tenderness Extremity Exam: normal inspection, normal range of motion Neurologic Exam: alert, oriented x 3, cooperative, normal mood/affect, nml cerebellar function, sensation nml, No motor deficits Skin Exam: normal color, warm, dry Lymphatic Exam: No adenopathy SpO2: 98 - Course Nursing assessment & vital signs reviewed: Yes EKG Interpreted by Me: Sinus Rhythm - Radiology Exams Chest X-ray Interpretation: Reviewed by me, Negative, No Pneumonia Ordered Tests: Active Orders 24 hr Category Date Time Status CHEST 2 VIEWS (PA AND LAT) Stat Exams 12/31/22 15:17 Taken CBC W DIFF Stat Lab 12/31/22 15:37 Completed CMP Stat Lab 12/31/22 15:37 Completed NT PRO BNPII Stat Lab 12/31/22 15:37 Completed TROPONIN Q4H Lab 12/31/22 15:37 Completed TROPONIN Q4H Lab 12/31/22 19:30 Ordered TROPONIN Q4H Lab 12/31/22 23:30 Ordered Medication Summary Discontinued Medications Generic Name Dose Route Start Last Admin Trade Name Freq PRN Reason Stop Dose Admin Sodium Chloride 1,000 mls @ 999 mls/hr 12/31/22 15:16 12/31/22 15:44 Sodium Chloride 0.9% 1000 Ml IV 12/31/22 16:16 999 mls/hr .Q1H1M STA Administration Sodium Chloride Confirm 08/05/23 15:42 Sodium Chloride 0.9% 1000 Ml Administered 12/31/22 15:43 Dose 1,000 mls @ [facility] Lab/Rad Data: Laboratory Result Diagrams 12/31/22 15:37 12/31/22 15:37 Laboratory Results 12/31/22 12/31/22 12/31/22 Range/Units 15:37 15:37 15:37 WBC (4.0-10.5) x10^3/uL RBC (4.1-5.4) x10^6/uL Hgb (12.0-16.0) g/dL Hct (35-47) % MCV (78-100) fL MCH (26-32) pg MCHC (32-36) g/dL RDW (11.5-14.0) % Plt Count (150-450) x10^3/uL MPV (7.5-11.0) fL Gran % (36.0-66.0) % Immature Gran % (Auto) (0.00-0.4) % Nucleat RBC Rel Count (0.00-0.1) % Eos # (Auto) (0-0.5) x10^3/uL Immature Gran # (Auto) (0.00-0.03) x10^3u/L Absolute Lymphs (auto) (1.0-4.6) x10^3/uL Absolute Monos (auto) (0.0-1.3) x10^3/uL Absolute Nucleated RBC (0.00-0.01) x10^3u/L Lymphocytes % (24.0-44.0) % Monocytes % (0.0-12.0) % Eosinophils % (0.00-5.0) % Basophils % (0.0-0.4) % Absolute Granulocytes (1.4-6.9) x10^3/uL Basophils # (0-0.4) x10^3/uL Sodium 136 L (137-145) mmol/L Potassium 3.5 (3.5-5.1) mmol/L Chloride 108 H (98-107) mmol/L Carbon Dioxide 18 L (22-30) mmol/L Anion Gap 14.3 (5-15) MEQ/L BUN 8 (7-17) mg/dL Creatinine 0.57 (0.52-1.04) mg/dL Estimated GFR > 60.0 ML/MIN Glucose 98 (74-106) mg/dL Calcium 9.0 (8.4-10.2) mg/dL Total Bilirubin 0.40 (0.2-1.3) mg/dL AST 20 (14-36) U/L ALT 20 (0-35) U/L Alkaline Phosphatase 69 (38-126) U/L Troponin I < 0.012 (0.000-0.034) ng/mL NT-Pro-B Natriuret Pep < 20.0 (<300) pg/mL Serum Total Protein 7.6 (6.3-8.2) g/dL Albumin 4.1 (3.5-5.0) g/dL 12/31/22 Range/Units 15:37 WBC 8.0 (4.0-10.5) x10^3/uL RBC 4.44 (4.1-5.4) x10^6/uL Hgb 11.6 L (12.0-16.0) g/dL Hct 36.9 (35-47) % MCV 83.1 (78-100) fL MCH 26.1 (26-32) pg MCHC 31.4 L (32-36) g/dL RDW 15.5 H (11.5-14.0) % Plt Count 323 (150-450) x10^3/uL MPV 9.3 (7.5-11.0) fL Gran % 63.5 (36.0-66.0) % Immature Gran % (Auto) 0.4 (0.00-0.4) % Nucleat RBC Rel Count 0.0 (0.00-0.1) % Eos # (Auto) 0.02 (0-0.5) x10^3/uL Immature Gran # (Auto) 0.03 (0.00-0.03) x10^3u/L Absolute Lymphs (auto) 2.41 (1.0-4.6) x10^3/uL Absolute Monos (auto) 0.42 (0.0-1.3) x10^3/uL Absolute Nucleated RBC 0.00 (0.00-0.01) x10^3u/L Lymphocytes % 30.1 (24.0-44.0) % Monocytes % 5.3 (0.0-12.0) % Eosinophils % 0.3 (0.00-5.0) % Basophils % 0.4 (0.0-0.4) % Absolute Granulocytes 5.09 (1.4-6.9) x10^3/uL Basophils # 0.03 (0-0.4) x10^3/uL Sodium (137-145) mmol/L Potassium (3.5-5.1) mmol/L Chloride (98-107) mmol/L Carbon Dioxide (22-30) mmol/L Anion Gap (5-15) MEQ/L BUN (7-17) mg/dL Creatinine (0.52-1.04) mg/dL Estimated GFR ML/MIN Glucose (74-106) mg/dL Calcium (8.4-10.2) mg/dL Total Bilirubin (0.2-1.3) mg/dL AST (14-36) U/L ALT (0-35) U/L Alkaline Phosphatase (38-126) U/L Troponin I (0.000-0.034) ng/mL NT-Pro-B Natriuret Pep (<300) pg/mL Serum Total Protein (6.3-8.2) g/dL Albumin (3.5-5.0) g/dL - Progress Progress: improved Air Movement: good Blood Culture(s) Obtained: No Antibiotics given: No Counseled pt/family regarding: lab results, diagnosis, need for follow-up, rad results - Departure Departure Disposition: Home Clinical Impression: Atypical chest pain, Non-cardiac chest pain Condition: Stable Critical Care Time: No Referrals: ERNESTO CRUMP NP [Primary Care Provider] - Follow up/PCP as directed Instructions: Chest Pain (DC) Additional Instructions: Discharge/Care Plan TAMRA ALVAREZ was seen on 12/31/22 in the Emergency Room. The patient was counseled regarding Diagnosis,Lab results, Imaging studies, need for follow up and when to return to the Emergency Room. Prescriptions given: Discharge Note I have spoken with the patient and/or caregivers. I have explained the patient's condition, diagnosis and treatment plan based on the information available to me at this time. I have answered the patient's and/or caregiver's questions and addressed any concerns. The patient and/or caregivers have as good understanding of the patient's diagnosis, condition and treatment plan as can be expected at this point. The vital signs have been stable. The patient's condition is stable and appropriate for discharge from the emergency department. The patient will pursue further outpatient evaluation with the primary care physician or other designated or consulting physician as outlined in the discharge instructions. The patient and/or caregivers are agreeable to this plan of care and follow-up instructions have been explained in detail. The patient and/or caregivers have received these instruction. The patient/and or caregivers are aware that any significant change in condition or worsening of symptoms should prompt an immediate return to this or the closest emergency department or call 911. TAMRA ALVAREZ was seen on 12/31/22 n the Emergency Room. At that time you were treated for an emergent condition, during your visit Laboratory, Radiology and/or other procedures may have been ordered. It is very important that you follow-up with your Primary Care Physician ERNESTO CRUMP within the next 24-48 hours to review your Emergency Room visit and the final results of testing that was ordered. Some test results such as Urine Cultures, Blood Cultures, and other cultures if ordered will not be finalized for 24-48 hours. If you do not have a Primary Care Provider please call the medical records department at [phone] ext [phone] to obtain a copy of your results or you may sign into our patient portal to obtain these results by visiting us @ [email or web address] and completing the following steps: 1. Click on the Patient Portal link 2. Click the Patient Self Enrollment Link to complete the enrollment form and entering your 3. Once the enrollment form is completed you will receive an email with a temporary ID and password at the email address you provided. 4. Next choose a user name and password. Your user name must be at least 4 characters long and your password must be at least 4 characters long. 5. Choose a security question from the list and provide your answer to the que stion. If you already have signed into the Health Portal you may access your Health Ca re Information 19/12 by the following steps: 1. Login to our website @ [email or web address] 2. Enter your original user name and password. FAQS The [facility] Health Portal is an online tool that contains your Lab Results, Radiology Reports, Visit History, Discharge Instructions and Health Summary Lab and Radiology Results will not be available for 72 hours on the portal. The Portal is a secure site, passwords are encryted and URLs are re-written so they cannot be copied and pasted. You and authorized family members are the only ones who can access your Portal. Also there is a timeout feature that protects your information if you leave the Portal page open. If you have technical difficulty please use the Contact Us link on the page this will allow you to submit any questions you have regarding the Portal or you may contact the Medical Record Department at [phone] ext [phone].
[2022-12-31 16:26] VITALS: BP 114/81; PULSE 79
[2022-12-31 16:33] VITALS: O2SAT 98
--- NOTE | 2022-12-31 22:00 | XRAY ---
Indication: Palpitations. Comparison: September 16, 2022 PA/lateral chest remains inflated and clear. Heart not enlarged. Bony thorax intact. No new/acute findings.
== END 2022-12-31 16:43 | disposition home or self-care (01) ==
LOC: ED 15:11
DX: R07.89 Other chest pain (principal); R00.2 Palpitations
CPT/HCPCS: 36415; 71046; 80053; 83880; 84484; 85025; 99283

== ENCOUNTER 2023-01-18 16:04 | Emergency (ER) | payer OTHER ==
[2023-01-18 16:20] VITALS: RESP 18; TEMP 98.8
[2023-01-18] MEDS ORDERED: TORAdol 30 mg Injection IV ONE (16:27)
[2023-01-18] MEDS ORDERED: Sodium Chloride 0.9% 1000 ML 1,000 ML IV STA (16:27)
[2023-01-18] MEDS ORDERED: Zofran 4 MG/2 ML VIAL IV ONE (16:28)
[2023-01-18] MEDS ORDERED: TORAdol 30 mg Injection ONE (16:39)
[2023-01-18] MEDS ORDERED: Zofran 4 MG/2 ML VIAL ONE ×2 (16:39→16:41)
[2023-01-18] MEDS ORDERED: Sodium Chloride 0.9% 1000 ML 1,000 ML ONE (16:39)
[2023-01-18 16:49] VITALS: O2SAT 95
[2023-01-18 17:09] LABS: ANION GAP 13.7 MEQ/L (5-15); BLOOD UREA NITROGEN 11 mg/dL (7-17); CHLORIDE 108 mmol/L (98-107); Calcium 8.8 mg/dL (8.4-10.2); Carbon Dioxide 20 mmol/L (22-30); Creatinine 1 0.56 mg/dL (0.52-1.04); EST GLOMERULAR FILTRATION RATE > 60.0 ML/MIN; Glucose 129 mg/dL (74-106); Potassium 3.5 mmol/L (3.5-5.1); SODIUM 138 mmol/L (137-145)
[2023-01-18 17:13] LABS: Absolute Neutrophil Ct (ANC) 4.11 x10^3/uL (1.4-6.9); BASOPHIL % 0.4 % (0.0-0.4); Basophil (Absolute #) 0.03 x10^3/uL (0-0.4); Eosinophil % 1.4 % (0.00-5.0); Hematocrit 36.5 % (35-47); Hemoglobin 11.8 g/dL (12.0-16.0); IMMATURE GRAN # 0.02 x10^3u/L (0.00-0.03); IMMATURE GRAN % 0.3 % (0.00-0.4); Lymphocytes % 31.8 % (24.0-44.0); Mean Cell Volume 82.4 fL (78-100); Mean Corpuscular Hemoglobin 26.6 pg (26-32); Mean Corpuscular Hgb Concent. 32.3 g/dL (32-36); Mean Platelet Volume 9.6 fL (7.5-11.0); Monocyte (Absolute #) 0.45 x10^3/uL (0.0-1.3); Monocytes % 6.5 % (0.0-12.0); Neutrophil % 59.6 % (36.0-66.0); Platelet Count 330 x10^3/uL (150-450); Red Blood Count 4.43 x10^6/uL (4.1-5.4); Red Cell Distribution Width 15.7 % (11.5-14.0); White Blood Count 6.9 x10^3/uL (4.0-10.5)
--- NOTE | 2023-01-18 17:13 | XRAY ---
Indication: Short of breath. Comparison: December 31, 2022 Portable chest again demonstrates normal heart and lungs. Bony thorax intact. No new/acute findings.
--- NOTE | 2023-01-18 17:20 | ERPHSYRPT ---
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 COVID symptoms x1 week. Many negative home swabs and negative swabs at urgent care. Patient's heart rate was slightly elevated. Therefore sent over here for IV fluids. No falls or other trauma. Patient otherwise feeling normal. Allergies/Adverse Reactions: ceftriaxone [From Rocephin] Allergy (Severe, Verified 01/18/23 16:12) hives and swelling hydromorphone HCl [From Dilaudid] Allergy (Severe, Verified 01/18/23 16:12) Anaphylactic Reaction azithromycin [From Zithromax] Allergy (Intermediate, Verified 01/18/23 16:12) Hives erythromycin base [Erythromycin Base] Allergy (Mild, Verified 01/18/23 16:12) Tightness of Throat cinnamon Allergy (Verified 01/18/23 16:12) clonazepam [From Klonopin] Allergy (Verified 01/18/23 16:12) Swelling clonidine Allergy (Verified 01/18/23 16:12) Hives prednisone Allergy (Verified 01/18/23 16:12) diphenhydramine [From Benadryl] Adverse Reaction (Intermediate, Verified 01/18/23 16:12) Vomiting lorazepam [From Ativan] Adverse Reaction (Verified 01/18/23 16:12) Swelling of Tongue and Lips morphine Adverse Reaction (Verified 10/02/22 16:24) Hives Home Medications: Aspirin EC 81 mg [Ecotrin 81 mg] 81 mg PO DAILY 09/15/22 [History] Hx Tetanus, Diphtheria Vaccination/Date Given: Yes Hx Influenza Vaccination/Date Given: Yes Hx Pneumococcal Vaccination/Date Given: No Travel Risk - International Travel Have you traveled outside of the country in past 3 weeks: No - Coronavirus Screening Are you exhibiting any of the following symptoms?: Yes Symptoms: Fever, Vomiting/Diarrhea, Headaches/Body Aches/Fatigue Close contact with a COVID-19 positive Pt in past 14-21 Days: No - Vaccine Status Have you recieved a Covid-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: Yes Skin Former: Pfizer - Vaccination Dates Date of 2cond Vaccination (if applicable): None - Review of Systems Constitutional: No Fever, No Chills Eyes: No Symptoms Ears, Nose, & Throat: No Symptoms Respiratory: Cough, Other (Cough, cold, congestion), No Dyspnea Cardiac: No Chest Pain, No Edema, No Syncope Abdominal/Gastrointestinal: No Abdominal Pain, No Nausea, No Vomiting, No Diarrhea Genitourinary Symptoms: No Dysuria Musculoskeletal: No Back Pain, No Neck Pain Skin: No Rash Neurological: No Dizziness, No Focal Weakness, No Sensory Changes Psychological: No Symptoms Endocrine: No Symptoms All Other Systems: Reviewed and Negative - Past Medical History Pertinent Past Medical History: Yes Neurological History: No Pertinent History ENT History: No Pertinent History Cardiac History: Arrhythmia, Other Respiratory History: No Pertinent History Endocrine Medical History: No Pertinent History Musculoskeletal History: No Pertinent History GI Medical History: No Pertinent History History: No Pertinent History Psycho-Social History: Anxiety, Depression Female Reproductive Disorders: No Pertinent History Other Medical History: kidney stones; a-fib, lupus - Past Surgical History Past Surgical History: Yes Neuro Surgical History: No Pertinent History Cardiac: No Pertinent History Respiratory: No Pertinent History Gastrointestinal: Appendectomy Genitourinary: No Pertinent History Musculoskeletal: No Pertinent History Female Surgical History: Dilation & Curettage, Section, Tubal Ligation Other Surgical History: recent chest pain left side; pt states d/t tumor. - Social History Smoking Status: Former smoker How long have you smoked: 12 Exposure to second hand smoke: Yes Drug Use: none Patient Lives Alone: No Significant Family History: no pertinent family hx - Female History Hx Now: No - Nursing Vital Signs Nursing Vital Signs: Initial Vital Signs Temperature 98.8 F 01/18/23 16:12 Pulse Rate 96 H 01/18/23 16:12 Respiratory Rate 18 01/18/23 16:12 Blood Pressure 106/78 01/18/23 16:12 O2 Sat by Pulse Oximetry 97 01/18/23 16:12 Pain Scale Pain Intensity 6 - Physical Exam General Appearance: no apparent distress, alert Eye Exam: PERRL/EOMI, eyes nml inspection Ears, Nose, Throat Exam: normal ENT inspection, TMs normal, pharynx normal, moist mucous membranes Neck Exam: normal inspection, non-tender, supple, full range of motion Respiratory Exam: normal breath sounds, lungs clear, No respiratory distress Cardiovascular Exam: regular rate/rhythm, normal heart sounds, normal peripheral pulses Gastrointestinal/Abdomen Exam: soft, normal bowel sounds, No tenderness, No mass Back Exam: normal inspection, normal range of motion, No CVA tenderness, No vertebral tenderness Extremity Exam: normal inspection, normal range of motion, pelvis stable Neurologic Exam: alert, oriented x 3, cooperative, normal mood/affect, nml cerebellar function, nml station & gait, sensation nml, No motor deficits Skin Exam: normal color, warm, dry, No rash Lymphatic Exam: No adenopathy SpO2: 95 - Course Nursing assessment & vital signs reviewed: Yes EKG Interpreted by Me: Sinus Rhythm Ordered Tests: Active Orders 24 hr Category Date Time Status EKG-ER Only STAT Care 01/18/23 16:27 Active IV Insertion STAT Care 01/18/23 16:27 Active CHEST 1 VIEW (PORTABLE) Stat Exams 01/18/23 16:30 Completed BMP Stat Lab 01/18/23 16:27 Completed CBC W DIFF Stat Lab 01/18/23 16:27 Completed Medication Summary Generic Name Dose Route Start Last Admin Trade Name Freq PRN Reason Stop Dose Admin Sodium Chloride 1,000 mls @ 999 mls/hr 01/18/23 16:27 01/18/23 16:40 Sodium Chloride 0.9% 1000 Ml IV 01/18/23 17:27 999 mls/hr .Q1H1M STA Administration Discontinued Medications Generic Name Dose Route Start Last Admin Trade Name Freq PRN Reason Stop Dose Admin Sodium Chloride Confirm 01/18/23 16:39 Sodium Chloride 0.9% 1000 Ml Administered 01/18/23 16:40 Dose 1,000 mls @ ud .ROUTE .[facility] ONE Ketorolac Tromethamine 30 mg 01/18/23 16:27 01/18/23 16:41 Ketorolac Tromethamine 30 Mg/Ml Inj IV 01/18/23 16:28 30 mg STAT ONE Administration Ketorolac Tromethamine Confirm 01/18/23 16:39 Ketorolac Tromethamine 30 Mg/Ml Inj Administered 01/18/23 16:40 Dose 30 mg .ROUTE .[facility] ONE Ondansetron HCl 8 mg 01/18/23 16:28 01/18/23 16:40 Ondansetron Hcl 4 Mg/2 Ml Vial IV 01/18/23 16:29 8 mg STAT ONE Administration Ondansetron HCl Confirm 01/18/23 16:39 Ondansetron Hcl 4 Mg/2 Ml Vial Administered 01/18/23 16:40 Dose 4 mg .ROUTE .[facility] ONE Ondansetron HCl Confirm 01/18/23 16:41 Ondansetron Hcl 4 Mg/2 Ml Vial Administered 01/18/23 16:42 Dose 4 mg .ROUTE .[facility] ONE Lab/Rad Data: Laboratory Result Diagrams 01/18/23 16:27 01/18/23 16:27 Laboratory Results 01/18/23 01/18/23 Range/Units 16:27 16:27 WBC 6.9 (4.0-10.5) x10^3/uL RBC 4.43 (4.1-5.4) x10^6/uL Hgb 11.8 L (12.0-16.0) g/dL Hct 36.5 (35-47) % MCV 82.4 (78-100) fL MCH 26.6 (26-32) pg MCHC 32.3 (32-36) g/dL RDW 15.7 H (11.5-14.0) % Plt Count 330 (150-450) x10^3/uL MPV 9.6 (7.5-11.0) fL Gran % 59.6 (36.0-66.0) % Immature Gran % (Auto) 0.3 (0.00-0.4) % Nucleat RBC Rel Count 0.0 (0.00-0.1) % Eos # (Auto) 0.10 (0-0.5) x10^3/uL Immature Gran # (Auto) 0.02 (0.00-0.03) x10^3u/L Absolute Lymphs (auto) 2.20 (1.0-4.6) x10^3/uL Absolute Monos (auto) 0.45 (0.0-1.3) x10^3/uL Absolute Nucleated RBC 0.00 (0.00-0.01) x10^3u/L Lymphocytes % 31.8 (24.0-44.0) % Monocytes % 6.5 (0.0-12.0) % Eosinophils % 1.4 (0.00-5.0) % Basophils % 0.4 (0.0-0.4) % Absolute Granulocytes 4.11 (1.4-6.9) x10^3/uL Basophils # 0.03 (0-0.4) x10^3/uL Sodium 138 (137-145) mmol/L Potassium 3.5 (3.5-5.1) mmol/L Chloride 108 H (98-107) mmol/L Carbon Dioxide 20 L (22-30) mmol/L Anion Gap 13.7 (5-15) MEQ/L BUN 11 (7-17) mg/dL Creatinine 0.56 (0.52-1.04) mg/dL Estimated GFR > 60.0 ML/MIN Glucose 129 H (74-106) mg/dL Calcium 8.8 (8.4-10.2) mg/dL - Progress Progress: improved Progress Note: 01/18/23 17:22 Signs and symptoms sound like a viral illness. Patient is already had a ne gative COVID swab. Plan for basic labs, IV fluids, chest x-ray. Chest x-ray, EKG demonstrated no obvious acute changes. Patient's heart rate improved with fluids here. She has had no low oxygen saturations. No wheezing. High likelihood she has a virus other than COVID. Plan for discharge home at this point time. Close follow-up with PCP. Patient may return here sooner for any new or changing symptoms. Counseled pt/family regarding: lab results, diagnosis, need for follow-up, rad results - Departure Departure Disposition: Home Clinical Impression: Viral illness Condition: Stable Critical Care Time: No Referrals: ERNESTO CRUMP NP [Primary Care Provider] - Follow up/PCP as directed Instructions: Cough in adults
[2023-01-18 17:26] VITALS: BP 110/72; PULSE 87
== END 2023-01-18 17:29 | disposition home or self-care (01) ==
LOC: ED 16:04
DX: B34.9 Viral infection, unspecified (principal); R05.1 Acute cough; R09.81 Nasal congestion
CPT/HCPCS: 36000; 36415; 71045; 80048; 85025; 93005; 96360; 96374; 96375; 99284; J1885; J2405

== ENCOUNTER 2023-04-08 19:33 | Emergency (ER) | payer OTHER ==
[2023-04-08 20:11] VITALS: RESP 18; TEMP 98; O2SAT 97
[2023-04-08] MEDS ORDERED: TORAdol 30 mg Injection IM ONE (20:22)
[2023-04-08] MEDS ORDERED: TORAdol 30 mg Injection ONE (20:51)
--- NOTE | 2023-04-08 21:11 | XRAY ---
Indication: Pain following fall. Comparison: August 13, 2021 3 view right shoulder obtained. Again no bony, articular, or soft tissue abnormalities.
--- NOTE | 2023-04-08 21:11 | XRAY ---
Indication: Pain following fall. Comparison: August 13, 2021 2 view right shoulder obtained. Again no bony, articular, or soft tissue abnormalities.
--- NOTE | 2023-04-08 21:11 | XRAY ---
Indication: Pain following fall. Comparison: None 2 view right forearm obtained. No bony, articular, or soft tissue abnormalities.
[2023-04-08 21:12] VITALS: BP 156/72; PULSE 92
--- NOTE | 2023-04-08 21:32 | ERPHSYRPT ---
- History of Present Illness Time Seen by Provider: 04/08/23 19:45 Source: patient Exam Limitations: no limitations Patient Subjective Stated Complaint: pt states "I was walking my dog and he pulled my arm with the leash and I heard a pop in my shoulder." Triage Nursing Assessment: pt ambulatory to bed by self with steady gait, pt alert and oriented x3, skin pwd, pt c/o R shoulder and R arm pain, pt was walking her dog and her dog pulled her arm with a leash, pt denies any numbness or tingling. Physician History: 37 years old [id number] female presented in the ER with chief complaint of right shoulder elbow and forearm pain after she got pulled with a dog leash and felt a popping sensation in the right shoulder and fell. Patient reports moderate to severe intensity pain throughout the whole upper extremity. No numbness or tingling. Pain is moderate to severe sharp, aggravated with minimal movements. Better with holding closer to the chest wall. No injury anywhere else. Patient has severe limited range of motion of the elbow and shoulder. Mild diffuse tenderness in the shoulder and elbow area and some tenderness in the forearm. She is offered pain medication but she declined. She does not want anything orally for pain relief as well. I have obtained x-rays right shoulder elbow and forearm which are negative for acute fracture dislocation reviewed by me, official report is pending. She is placed in sling, recommended outpatient orthopedics follow-up. Discussed signs symptoms of worsening needing return to ER which she seems understanding. Stable for discharge. Allergies/Adverse Reactions: ceftriaxone [From Rocephin] Allergy (Severe, Verified 04/08/23 20:09) hives and swelling hydromorphone HCl [From Dilaudid] Allergy (Severe, Verified 04/08/23 20:09) Anaphylactic Reaction azithromycin [From Zithromax] Allergy (Intermediate, Verified 04/08/23 20:09) Hives erythromycin base [Erythromycin Base] Allergy (Mild, Verified 04/08/23 20:09) Tightness of Throat cinnamon Allergy (Verified 04/08/23 20:09) clonazepam [From Klonopin] Allergy (Verified 04/08/23 20:09) Swelling clonidine Allergy (Verified 04/08/23 20:09) Hives prednisone Allergy (Verified 04/08/23 20:09) diphenhydramine [From Benadryl] Adverse Reaction (Intermediate, Verified 04/08/23 20:09) Vomiting lorazepam [From Ativan] Adverse Reaction (Verified 04/08/23 20:09) Swelling of Tongue and Lips morphine Adverse Reaction (Verified 04/08/23 20:09) Hives Home Medications: Aspirin EC 81 mg [Ecotrin 81 mg] 81 mg PO DAILY 09/15/22 [History] Hx Tetanus, Diphtheria Vaccination/Date Given: Yes Hx Influenza Vaccination/Date Given: Yes Hx Pneumococcal Vaccination/Date Given: No Travel Risk - International Travel Have you traveled outside of the country in past 3 weeks: No - Coronavirus Screening Are you exhibiting any of the following symptoms?: No Close contact with a COVID-19 positive Pt in past 14-21 Days: No - Vaccine Status Have you recieved a Covid-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: Yes 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[employer] - Vaccination Dates Date of 2cond Vaccination (if applicable): None - Review of Systems Constitutional: No Symptoms Ears, Nose, & Throat: No Symptoms Respiratory: No Symptoms Cardiac: No Symptoms Abdominal/Gastrointestinal: No Symptoms Musculoskeletal: Injury, Joint Pain Skin: No Symptoms Neurological: No Symptoms Hematologic/Lymphatic: No Symptoms - Past Medical History Pertinent Past Medical History: Yes Neurological History: No Pertinent History ENT History: No Pertinent History Cardiac History: Arrhythmia, Other Respiratory History: No Pertinent History Endocrine Medical History: No Pertinent History Musculoskeletal History: No Pertinent History GI Medical History: No Pertinent History History: No Pertinent History Psycho-Social History: Anxiety, Depression Female Reproductive Disorders: No Pertinent History Other Medical History: kidney stones; a-fib, lupus - Past Surgical History Past Surgical History: Yes Neuro Surgical History: No Pertinent History Cardiac: No Pertinent History Respiratory: No Pertinent History Gastrointestinal: Appendectomy Genitourinary: No Pertinent History Musculoskeletal: No Pertinent History Female Surgical History: Dilation & Curettage, Section, Tubal Ligation Other Surgical History: recent chest pain left side; pt states d/t tumor. - Social History Smoking Status: Former smoker How long have you smoked: 12 Exposure to second hand smoke: Yes Drug Use: none Patient Lives Alone: No Significant Family History: no pertinent family hx - Female History Hx Last Menstrual Period: 03/29/23 Hx Now: No - Nursing Vital Signs Nursing Vital Signs: Initial Vital Signs Temperature 98.0 F 04/08/23 20:09 Pulse Rate 107 H 04/08/23 20:09 Respiratory Rate 18 04/08/23 20:09 Blood Pressure 146/89 04/08/23 20:09 O2 Sat by Pulse Oximetry 97 04/08/23 20:09 Pain Scale Pain Intensity 8 - Physical Exam General Appearance: no apparent distress Eyes, Ears, Nose, Throat Exam: normal ENT inspection Neck Exam: normal inspection, full range of motion Cardiovascular/Respiratory Exam: normal breath sounds, regular rate/rhythm Shoulder Exam: normal inspection, bone tenderness, limited ROM, pain, soft tissue tenderness Elbow/Forearm Exam: normal inspection, bone tenderness, limited ROM, soft tissue tenderness Neuro/Tendon Exam: normal sensation Mental 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, oriented x 3, cooperative Skin Exam: normal color SpO2 Interpretation: normal SpO2: 97 O2 Delivery: Room Air Ordered Tests: Active Orders 24 hr Category Date Time Status Sling Application STAT Care 04/08/23 21:10 Active ELBOW (2 VIEW) Stat Exams 04/08/23 20:23 Completed FOREARM Stat Exams 04/08/23 20:23 Completed SHOULDER Stat Exams 04/08/23 20:23 Completed Medication Summary Discontinued Medications Generic Name Dose Route Start Last Admin Trade Name Freq PRN Reason Stop Dose Admin Ketorolac Tromethamine 30 mg 04/08/23 20:22 04/08/23 20:56 Ketorolac Tromethamine 30 Mg/Ml Inj IM 04/08/23 20:23 Not Given STAT ONE Ketorolac Tromethamine Confirm 04/08/23 20:51 Ketorolac Tromethamine 30 Mg/Ml Inj Administered 04/08/23 20:52 Dose 30 mg .ROUTE .[facility] - Progress Progress: unchanged Progress Note: 04/08/23 21:34 37 years old [id number] female presented in the ER with chief complaint of right shoulder elbow and forearm pain after she got pulled with a dog leash and felt a popping sensation in the right shoulder and fell. Patient reports moderate to severe intensity pain throughout the whole upper extremity. No numbness or tingling. Pain is moderate to severe sharp, aggravated with minimal movements. Better with holding closer to the chest wall. No injury anywhere else. Patient has severe limited range of motion of the elbow and shoulder. Mild diffuse tenderness in the shoulder and elbow area and some tenderness in the forearm. She is offered pain medication but she declined. She does not want anything orally for pain relief as well. I have obtained x-rays right shoulder elbow and forearm which are negative for acute fracture dislocation reviewed by me, official report is pending. She is placed in sling, recommended outpatient orthopedics follow-up. Discussed signs symptoms of worsening needing return to ER which she seems understanding. Stable for discharge. Counseled pt/family regarding: diagnosis, need for follow-up, rad results Medical Desision Making - Diagnostic Testing Diagnostic test were ordered, analyzed, and reviewed by me: Yes Radiological Interpretation: Interpreted by me, Reviewed by me - Departure Departure Disposition: Home Clinical Impression: Sprain of shoulder, right, Strain of elbow, right Condition: Stable Critical Care Time: No Referrals: ERNESTO CRUMP NP [Primary Care Provider] - Follow up with PCP 2 days DENISE - FANNIE JIN NP [NON-STAFF PHY W/O PRIVILEGES] - Follow up/PCP as directed (In 2 days for reevaluation) Instructions: Shoulder Sprain (DC) Additional Instructions: Take Tylenol/ibuprofen as needed for pain. Intermittent ice application. Follow-up with orthopedics for reevaluation in 2 days. Return to ER for w orsening pain or if having numbness tingling or weakness of right upper extremity.
== END 2023-04-08 21:40 | disposition home or self-care (01) ==
LOC: ED 19:33
DX: S43.401A Unspecified sprain of right shoulder joint, initial encounter (principal); S46.911A Strain of unspecified muscle, fascia and tendon at shoulder and upper arm level, right arm, initial encounter; X50.0XXA Overexertion from strenuous movement or load, initial encounter; Y93.K1 Activity, walking an animal; M79.631 Pain in right forearm; M25.521 Pain in right elbow
CPT/HCPCS: 73030; 73070; 73090; 99283; J1885

== ENCOUNTER 2023-04-29 10:12 | Emergency (ER) | payer OTHER ==
--- NOTE | 2023-04-29 10:24 | ERPHSYRPT ---
- History of Present Illness Time Seen by Provider: 04/29/23 10:24 Source: patient Exam Limitations: no limitations Physician History: This is a right-handed 37-year-old white female patient who had a long-arm cast placed by orthopedics. The patient states that she wants the cast removed. Patient has already had the cast adjusted as recent as 3 days ago. The orthopedic clinic stated they would not remove the cast as she still needs to be in a cast. Timing/Duration: week(s) (3) Severity: mild Associated Symptoms: denies symptoms Allergies/Adverse Reactions: ceftriaxone [From Rocephin] Allergy (Severe, Verified 04/29/23 10:21) hives and swelling hydromorphone HCl [From Dilaudid] Allergy (Severe, Verified 04/29/23 10:21) Anaphylactic Reaction azithromycin [From Zithromax] Allergy (Intermediate, Verified 04/29/23 10:21) Hives erythromycin base [Erythromycin Base] Allergy (Mild, Verified 04/29/23 10:21) Tightness of Throat cinnamon Allergy (Verified 04/29/23 10:21) clonazepam [From Klonopin] Allergy (Verified 04/29/23 10:21) Swelling clonidine Allergy (Verified 04/29/23 10:21) Hives prednisone Allergy (Verified 04/29/23 10:21) diphenhydramine [From Benadryl] Adverse Reaction (Intermediate, Verified 04/29/23 10:21) Vomiting lorazepam [From Ativan] Adverse Reaction (Verified 04/29/23 10:21) Swelling of Tongue and Lips morphine Adverse Reaction (Verified 04/29/23 10:21) Hives Home Medications: No Reportable Medications [No Reported Medications] 04/29/23 [History] Hx Tetanus, Diphtheria Vaccination/Date Given: Yes Hx Influenza Vaccination/Date Given: Yes Hx Pneumococcal Vaccination/Date Given: No Travel Risk - International Travel Have you traveled outside of the country in past 3 weeks: No - Coronavirus Screening Are you exhibiting any of the following symptoms?: No Close contact with a COVID-19 positive Pt in past 14-21 Days: No - Vaccine Status Have you recieved a Covid-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: 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[employer] - Vaccination Dates Date of 2cond Vaccination (if applicable): None - Review of Systems Constitutional: No Symptoms Eyes: No Symptoms Ears, Nose, & Throat: No Symptoms Respiratory: No Symptoms Cardiac: No Symptoms Abdominal/Gastrointestinal: No Symptoms Musculoskeletal: Other (Patient is concerned that the cast might be too tight) Skin: No Symptoms Neurological: No Symptoms Psychological: No Symptoms Endocrine: No Symptoms Hematologic/Lymphatic: No Symptoms Immunological/Allergic: No Symptoms All Other Systems: Reviewed and Negative - Past Medical History Pertinent Past Medical History: Yes Neurological History: No Pertinent History ENT History: No Pertinent History Cardiac History: Arrhythmia, Other Respiratory History: No Pertinent History Endocrine Medical History: No Pertinent History Musculoskeletal History: No Pertinent History GI Medical History: No Pertinent History History: No Pertinent History Psycho-Social History: Anxiety, Depression Female Reproductive Disorders: No Pertinent History Other Medical History: kidney stones; a-fib, lupus - Past Surgical History Past Surgical History: Yes Neuro Surgical History: No Pertinent History Cardiac: No Pertinent History Respiratory: No Pertinent History Gastrointestinal: Appendectomy Genitourinary: No Pertinent History Musculoskeletal: No Pertinent History Female Surgical History: Dilation & Curettage, Section, Tubal Ligation Other Surgical History: recent chest pain left side; pt states d/t tumor. - Social History Smoking Status: Former smoker How long have you smoked: 12 Exposure to second hand smoke: Yes Drug Use: none Patient Lives Alone: No Significant Family History: no pertinent family hx - Nursing Vital Signs Nursing Vital Signs: Initial Vital Signs Temperature 97.6 F 04/29/23 10:12 Pulse Rate 95 H 04/29/23 10:12 Respiratory Rate 18 04/29/23 10:12 Blood Pressure 122/62 04/29/23 10:12 O2 Sat by Pulse Oximetry 98 04/29/23 10:12 Pain Scale Pain Intensity 10 - Physical Exam General Appearance: no apparent distress, alert, anxiety Eye Exam: PERRL/EOMI, eyes nml inspection Ears, Nose, Throat Exam: normal ENT inspection, moist mucous membranes Neck Exam: normal inspection, non-tender, supple, full range of motion Respiratory Exam: airway intact, No chest tenderness, No respiratory distress Gastrointestinal/Abdomen Exam: No tenderness Pelvic Exam: not done Rectal Exam: not done Back Exam: normal inspection, normal range of motion, No CVA tenderness, No vertebral tenderness Extremity Exam: other (Right upper extremity long arm cast in place. Patient's fingers are warm. They do not appear to me to be swollen. 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 The level of complexity in the workup performed is based on review the patient's past medical history, review of the patient's medication list, review of the patient's drug allergy list, history of present illness and physical findings on examination. No radiographic or laboratory studies are necessary in this patient's workup. I reassured the patient that she has good movement of her fingers. We are documenting brisk capillary refill. Her fingers are warm. I discussed with the patient that she does not have an emergency medical condition at this time. Patient was told that she could proceed to [facility] where they have orthopedic services available to obtain a second opinion. She was informed that I will not be removing the patient's cast at this time. Counseled pt/family regarding: need for follow-up, rad results Medical Desision Making - Diagnostic Testing Diagnostic test were ordered, analyzed, and reviewed by me: No - Risk of complications Minimal Risk: Minimal risk of morbidity - Departure Departure Disposition: Home Clinical Impression: Encounter for medical screening examination Condition: Stable Critical Care Time: No Referrals: ERNESTO CRUMP NP [Primary Care Provider] - Follow up/PCP as directed Additional Instructions: Take all your medications as prescribed. You may proceed to [facility] or other emergency room facilities that have orthopedic availability if you choose to do that. You do not have an emergent, acute medical condition at this time.
[2023-04-29 10:44] VITALS: BP 122/62; PULSE 95; RESP 18; TEMP 97.6; O2SAT 98
== END 2023-04-29 10:55 | disposition home or self-care (01) ==
LOC: ED 10:12
DX: Z71.1 Person with feared health complaint in whom no diagnosis is made (principal)
CPT/HCPCS: 99281

== ENCOUNTER 2023-08-16 16:51 | Emergency (ER) | payer OTHER ==
[2013-01-11 20:09] VITALS: BP 128/72
--- NOTE | 2023-08-16 16:55 | ERPHSYRPT ---
- History of Present Illness Time Seen by Provider: 08/16/23 16:54 Source: patient Exam Limitations: no limitations Allergies/Adverse Reactions: ceftriaxone [From Rocephin] Allergy (Severe, Verified 04/29/23 10:21) hives and swelling hydromorphone HCl [From Dilaudid] Allergy (Severe, Verified 04/29/23 10:21) Anaphylactic Reaction azithromycin [From Zithromax] Allergy (Intermediate, Verified 04/29/23 10:21) Hives erythromycin base [Erythromycin Base] Allergy (Mild, Verified 04/29/23 10:21) Tightness of Throat cinnamon Allergy (Verified 04/29/23 10:21) clonazepam [From Klonopin] Allergy (Verified 04/29/23 10:21) Swelling clonidine Allergy (Verified 04/29/23 10:21) Hives prednisone Allergy (Verified 04/29/23 10:21) diphenhydramine [From Benadryl] Adverse Reaction (Intermediate, Verified 04/29/23 10:21) Vomiting lorazepam [From Ativan] Adverse Reaction (Verified 04/29/23 10:21) Swelling of Tongue and Lips morphine Adverse Reaction (Verified 04/29/23 10:21) Hives Home Medications: No Reportable Medications [No Reported Medications] 04/29/23 [History] Hx Tetanus, Diphtheria Vaccination/Date Given: Yes Hx Influenza Vaccination/Date Given: Yes Hx Pneumococcal Vaccination/Date Given: No - Past Medical History Pertinent Past Medical History: Yes Neurological History: No Pertinent History ENT History: No Pertinent History Cardiac History: Arrhythmia, Other Respiratory History: No Pertinent History Endocrine Medical History: No Pertinent History Musculoskeletal History: No Pertinent History GI Medical History: No Pertinent History History: No Pertinent History Psycho-Social History: Anxiety, Depression Female Reproductive Disorders: No Pertinent History Other Medical History: kidney stones; a-fib, lupus - Past Surgical History Past Surgical History: Yes Neuro Surgical History: No Pertinent History Cardiac: No Pertinent History Respiratory: No Pertinent History Gastrointestinal: Appendectomy Genitourinary: No Pertinent History Musculoskeletal: No Pertinent History Female Surgical History: Dilation & Curettage, Section, Tubal Ligation Other Surgical History: recent chest pain left side; pt states d/t tumor. Significant Family History: no pertinent family hx - Social History Smoking Status: Former smoker How long have you smoked: 12 Exposure to second hand smoke: Yes Drug Use: none Patient Lives Alone: No - Departure Referrals: ERNESTO CRUMP NP [Primary Care Provider] - Follow up/PCP as directed
== END 2023-08-16 17:49 | disposition left against medical advice (07) ==
LOC: ED 16:51
DX: Z53.21 Procedure and treatment not carried out due to patient leaving prior to being seen by health care provider (principal)

== ENCOUNTER 2023-10-18 20:55 | Emergency (ER) | payer OTHER ==
[2013-01-11 20:09] VITALS: BP 128/72
--- NOTE | 2023-10-18 21:08 | ERPHSYRPT ---
- History of Present Illness Time Seen by Provider: 10/18/23 21:06 Source: patient Exam Limitations: no limitations Physician History: 38-year-old female presents to emergency department via EMS for evaluation of an allergic reaction which started 1 hour after taking Macrobid. Patient was prescribed Macrobid for urinary tract infection. Today was her first dose. Patient advises that she has a history of multiple medicine allergies. Patient went to a neighbor's house and administered an EpiPen. Upon arrival to our ED patient was shaking. Patient attributed her symptoms to the EpiPen. Patient told ED MD and RN that she felt fine that she just wanted to go home. She declined additional treatment. Patient refused care after initial physical examination. Upon presentation patient's symptoms are mild to moderate in intensity. Patient voiced no other complaints or concerns. Portions of this note were created with voice recognition technology. There may be grammatical, spelling, punctuation or sound alike errors Timing/Duration: today Severity: moderate Modifying Factors: Improves With: other (Allergic reaction improved after administration of EpiPen) Associated Symptoms: denies symptoms Allergies/Adverse Reactions: ceftriaxone [From Rocephin] Allergy (Severe, Verified 04/29/23 10:21) hives and swelling hydromorphone HCl [From Dilaudid] Allergy (Severe, Verified 04/29/23 10:21) Anaphylactic Reaction nitrofurantoin [From Macrobid] Allergy (Severe, Verified 10/18/23 20:59) Swelling azithromycin [From Zithromax] Allergy (Intermediate, Verified 04/29/23 10:21) Hives erythromycin base [Erythromycin Base] Allergy (Mild, Verified 04/29/23 10:21) Tightness of Throat cinnamon Allergy (Verified 04/29/23 10:21) clonazepam [From Klonopin] Allergy (Verified 04/29/23 10:21) Swelling clonidine Allergy (Verified 04/29/23 10:21) Hives prednisone Allergy (Verified 04/29/23 10:21) diphenhydramine [From Benadryl] Adverse Reaction (Intermediate, Verified 04/29/23 10:21) Vomiting lorazepam [From Ativan] Adverse Reaction (Verified 04/29/23 10:21) Swelling of Tongue and Lips morphine Adverse Reaction (Verified 04/29/23 10:21) Hives Hx Tetanus, Diphtheria Vaccination/Date Given: Yes Hx Influenza Vaccination/Date Given: Yes Hx Pneumococcal Vaccination/Date Given: No - Review of Systems Constitutional: No Symptoms, No Fever, No Chills Eyes: No Symptoms Ears, Nose, & Throat: No Symptoms Respiratory: No Symptoms, No Cough, No Dyspnea Cardiac: No Symptoms, No Chest Pain, No Edema, No Syncope Abdominal/Gastrointestinal: No Symptoms, No Abdominal Pain, No Nausea, No Vomiting, No Diarrhea Genitourinary Symptoms: No Symptoms, No Dysuria Musculoskeletal: No Symptoms, No Back Pain, No Neck Pain Skin: No Symptoms, No Rash Neurological: No Symptoms, No Dizziness, No Focal Weakness, No Sensory Changes Psychological: No Symptoms Endocrine: No Symptoms Hematologic/Lymphatic: No Symptoms Immunological/Allergic: No Symptoms All Other Systems: Reviewed and Negative - Past Medical History Pertinent Past Medical History: Yes Neurological History: No Pertinent History ENT History: No Pertinent History Cardiac History: Arrhythmia, Other Respiratory History: No Pertinent History Endocrine Medical History: No Pertinent History Musculoskeletal History: No Pertinent History GI Medical History: No Pertinent History History: No Pertinent History Psycho-Social History: Anxiety, Depression Female Reproductive Disorders: No Pertinent History Other Medical History: kidney stones; a-fib, lupus - Past Surgical History Past Surgical History: Yes Neuro Surgical History: No Pertinent History Cardiac: No Pertinent History Respiratory: No Pertinent History Gastrointestinal: Appendectomy Genitourinary: No Pertinent History Musculoskeletal: No Pertinent History Female Surgical History: Dilation & Curettage, Section, Tubal Ligation Other Surgical History: recent chest pain left side; pt states d/t tumor. Significant Family History: no pertinent family hx - Social History Smoking Status: Former smoker How long have you smoked: 12 Exposure to second hand smoke: Yes Drug Use: none Patient Lives Alone: No - Nursing Vital Signs Nursing Vital Signs: Initial Vital Signs O2 Sat by Pulse Oximetry 98 10/18/23 21:13 - Physical Exam General Appearance: no apparent distress, alert Eye Exam: PERRL/EOMI, eyes nml inspection Ears, Nose, Throat Exam: normal ENT inspection, moist mucous membranes Neck Exam: normal inspection, non-tender, supple, full range of motion Respiratory Exam: normal breath sounds, lungs clear, airway intact, No resp iratory distress Cardiovascular Exam: regular rate/rhythm, normal heart sounds, normal peripheral pulses Gastrointestinal/Abdomen Exam: soft, normal bowel sounds, No tenderness, No mass Back Exam: normal inspection, normal range of motion, No CVA tenderness, No vertebral tenderness Extremity Exam: normal inspection, normal range of motion, pelvis stable Neurologic Exam: alert, oriented x 3, cooperative, normal mood/affect, sensation nml, No motor deficits Skin Exam: normal color, warm, dry, No rash Lymphatic Exam: No adenopathy SpO2 Interpretation: normal SpO2: 98 O2 Delivery: Room Air - Course Nursing assessment & vital signs reviewed: Yes Ordered Tests: Active Orders 24 hr Category Date Time Status AMA [Release AMA] OM.NOW Care 10/18/23 21:20 Active - Progress Progress: improved Progress Note: Upon arrival to our ED patient was a little shaky. Patient then states that she felt fine and wanted to be discharged. Patient did not want management. Patient declined medical management for her condition. Patient is of sound mind. Patient is appropriate to make informed and independent medical decisions. Patient understands that leaving AGAINST MEDICAL ADVICE can result in delayed diagnosis, increased risk of morbidity, mortality, short and long-term disability including . In spite of these risks, patient has decided to leave AGAINST MEDICAL ADVICE. Patient understands that she may return to our ED at any point if she reconsiders. Patient agrees to follow-up with her primary care doctor within 48 hours for reevaluation. Patient voices no other complaints or concerns at this time. We will release patient AGAINST MEDICAL ADVICE per their request. Portions of this note were created with voice recognition technology. There may be grammatical, spelling, punctuation or sound alike errors Complexity problem addressed is moderate acute complicated. No critical care time. Complexity data reviewed and analyzed is none. Diagnosis made based on history and physical exam. Risk of complication or risk morbidity/mortality patient management is moderate. A prescription for EpiPen forwarded to patient's pharmacy. Vital stable. Patient left AGAINST MEDICAL ADVICE. Patient was tachycardic at the time. No social determinants of health present impede follow-up. Portions of this note were created with voice recognition technology. There may be grammatical, spelling, punctuation or sound alike errors 10/18/23 21:31 Of note we updated patient's allergy profile to reflect nitrofurantoin 10/18/23 21:33 Counseled pt/family regarding: diagnosis - Departure Departure Disposition: AMA Clinical Impression: Allergic reaction Condition: Stable Critical Care Time: No Referrals: ERNESTO CRUMP NP [Primary Care Provider] - Follow up/PCP as directed Additional Instructions: Discharge/Care Plan TAMRA ALVAREZ was seen on 10/18/23 in the Emergency Room. The patient was counseled regarding Diagnosis,Lab results, Imaging studies, need for follow up and when to return to the Emergency Room. Prescriptions given: Discharge Note I have spoken with the patient and/or caregivers. I have explained the patient's condition, diagnosis and treatment plan based on the information available to me at this time. I have answered the patient's and/or caregiver's questions and addressed any concerns. The patient and/or caregivers have as good understanding of the patient's diagnosis, condition and treatment plan as can be expected at this point. The vital signs have been stable. The patient's condition is stable and appropriate for discharge from the emergency department. The patient will pursue further outpatient evaluation with the primary care physician or other designated or consulting physician as outlined in the discharge instructions. The patient and/or caregivers are agreeable to this plan of care and follow-up instructions have been explained in detail. The patient and/or caregivers have received these instruction. The patient/and or caregivers are aware that any significant change in condition or worsening of symptoms should prompt an immediate return to this or the closest emergency department or call 911. Prescriptions: EPINEPHrine [Epipen 2-Hay] 0.3 mg IJ DAILY 1 Days #1 packet
[2023-10-18 21:13] VITALS: O2SAT 98
== END 2023-10-18 21:08 | disposition left against medical advice (07) ==
LOC: ED 20:55
DX: T78.40XA Allergy, unspecified, initial encounter (principal)
CPT/HCPCS: 99281

== ENCOUNTER 2023-11-28 18:23 | Emergency (ER) | payer OTHER ==
[2023-11-28 18:41] VITALS: TEMP 97.7
[2023-11-28 18:46] LABS: Appearance Cloudy (Clear); Bacteria Rare /HPF (None Seen); Bilirubin Negative (Negative); Blood Negative (Negative); Epithelial Cells Few /HPF (None Seen); Glucose, Urine Negative (Negative); Hyaline Casts NONE SEEN /LPF (0-2); Ketones Trace (Negative); Leukocyte Esterase Negative (Negative); Nitrite Negative (Negative); Ph 5.5 (4.6-8.0); Protein,Urine Dip Negative (Negative); RBC 0-2 /HPF (0-5); Specific Gravity >=1.030 (1.005-1.030); WBC 0-2 /HPF (0-5)
[2023-11-28 18:47] LABS: ADD URINE CULTURE? ORDERED SEPARATELY (NO)
[2023-11-28 18:55] LABS: Amphetamine,Urine NEGATIVE (NEGATIVE); Barbiturate,Urine NEGATIVE (NEGATIVE); Benzodiazepine,Urine NEGATIVE (NEGATIVE); Cocaine,Urine NEGATIVE (NEGATIVE); Methadone,Urine NEGATIVE (NEGATIVE); Opiate,Urine NEGATIVE (NEGATIVE); PCP,Urine NEGATIVE (NEGATIVE); THC,Urine NEGATIVE (NEGATIVE)
[2023-11-28] MEDS ORDERED: Sodium Chloride 0.9% 1000 ML 1,000 ML ONE (19:07)
[2023-11-28] MEDS ORDERED: ANTIVERT 25 MG ONE (19:07)
[2023-11-28 19:08] LABS: Absolute Neutrophil Ct (ANC) 4.58 x10^3/uL (1.56-6.13); BASOPHIL % 0.5 % (0.1-1.2); Basophil (Absolute #) 0.04 x10^3/uL (0.01-0.08); Eosinophil % 1.3 % (0.7-5.8); Eosinophil (Absolute #) 0.11 x10^3/uL (0.04-0.36); Hematocrit 37.8 % (34.1-44.9); Hemoglobin 11.8 g/dL (11.2-15.7); IMMATURE GRAN # 0.03 x10^3u/L (0.001-0.031); IMMATURE GRAN % 0.4 % (0.001-0.429); Lymphocyte (Absolute #) 3.16 x10^3/uL (1.18-3.74); Lymphocytes % 37.7 % (19.3-51.7); Mean Cell Volume 82.9 fL (79.4-94.8); Mean Corpuscular Hemoglobin 25.9 pg (25.6-32.2); Mean Corpuscular Hgb Concent. 31.2 g/dL (32.2-35.5); Mean Platelet Volume 9.4 fL (9.4-12.3); Monocyte (Absolute #) 0.46 x10^3/uL (0.24-0.86); Monocytes % 5.5 % (4.7-12.5); Neutrophil % 54.6 % (34.0-71.1); Platelet Count 336 x10^3/uL (182-369); Red Blood Count 4.56 x10^6/uL (3.93-5.22); Red Cell Distribution Width 15.7 % (11.7-14.4); White Blood Count 8.4 x10^3/uL (3.98-10.04)
[2023-11-28] MEDS: ANTIVERT 25 MG PO ONE (19:10)
[2023-11-28] MEDS: Sodium Chloride 0.9% 1000 ML 1,000 ML IV STA (19:11)
[2023-11-28 19:22] LABS: ALBUMIN 4.1 g/dL (3.5-5.0); ALKALINE PHOSPHATASE 87 U/L (38-126); ANION GAP 14.1 MEQ/L (5-15); BLOOD UREA NITROGEN 10 mg/dL (7-17); CHLORIDE 107 mmol/L (98-107); Calcium 9.5 mg/dL (8.4-10.2); Carbon Dioxide 21 mmol/L (22-30); Creatinine 1 0.58 mg/dL (0.52-1.04); EST GLOMERULAR FILTRATION RATE 119.5 ML/MIN; ETHYL ALCOHOL < 10 mg/dL (0-10); Glucose 105 mg/dL (74-106); MAGNESIUM 1.8 mg/dL (1.6-2.3); Potassium 3.6 mmol/L (3.5-5.1); SGOT/AST 22 U/L (14-36); SGPT/ALT 17 U/L (0-35); SODIUM 138 mmol/L (135-145); Total Protein 7.9 g/dL (6.3-8.2)
[2023-11-28 19:34] LABS: HCG SERUM TEST NEGATIVE (NEGATIVE)
--- NOTE | 2023-11-28 19:36 | ERPHSYRPT ---
- History of Present Illness Time Seen by Provider: 11/28/23 19:32 Source: patient Exam Limitations: no limitations Patient Subjective Stated Complaint: pt sent from clinic for dizziness, and urinary tract infection, she states she has not felt well for 2 days, Urine was negative at clinic, she states she has felt unsteady and that the room is aspinning, and feels like she is confused at times, pt drove self here Triage Nursing Assessment: pt alert, walked in on cell phone, gait steady, pt textng during triage. resp easy, skin w/d/p. moves all ext well, no edema noted. no cough Physician History: 38-year-old female presents to our ED as a referral from [facility] for evaluation of dizziness and unsteady gait. Patient states her symptoms started approximately 2 days ago. Patient reports that the right side of her face feels heavy. No slurred speech no upper or lower extremity weakness. Patient was ambulatory in our ED. Patient maintained a steady gait with normal balance. No sensory changes. No associated nausea vomiting or diaphoresis. No chest pain or shortness of breath. Patient does not appear to be in any distress. Patient denies a history of the same. No headache. Patient voices no other complaints or concerns at this time. Portions of this note were created with voice recognition technology. There may be grammatical, spelling, punctuation or sound alike errors Timing/Duration: day(s) (2 days ago) Severity: moderate Modifying Factors: Improves With: nothing Associated Symptoms: denies symptoms Allergies/Adverse Reactions: ceftriaxone [From Rocephin] Allergy (Severe, Verified 11/28/23 18:33) hives and swelling hydromorphone HCl [From Dilaudid] Allergy (Severe, Verified 11/28/23 18:33) Anaphylactic Reaction nitrofurantoin [From Macrobid] Allergy (Severe, Verified 11/28/23 18:33) Swelling azithromycin [From Zithromax] Allergy (Intermediate, Verified 11/28/23 18:33) Hives erythromycin base [Erythromycin Base] Allergy (Mild, Verified 11/28/23 18:33) Tightness of Throat cinnamon Allergy (Verified 11/28/23 18:33) clonazepam [From Klonopin] Allergy (Verified 11/28/23 18:33) Swelling clonidine Allergy (Verified 11/28/23 18:33) Hives prednisone Allergy (Verified 11/28/23 18:33) diphenhydramine [From Benadryl] Adverse Reaction (Intermediate, Verified 11/28/23 18:33) Vomiting lorazepam [From Ativan] Adverse Reaction (Verified 11/28/23 18:33) Swelling of Tongue and Lips morphine Adverse Reaction (Verified 11/28/23 18:33) Hives Hx Tetanus, Diphtheria Vaccination/Date Given: Yes Hx Influenza Vaccination/Date Given: Yes Hx Pneumococcal Vaccination/Date Given: No Immunizations Up to Date: Yes Travel Risk - International Travel Have you traveled outside of the country in past 3 weeks: No - Emerging Infectious Disease Are you exhibiting symptoms associated with any current EIDs: No - Review of Systems Constitutional: No Symptoms, No Fever, No Chills Eyes: No Symptoms Ears, Nose, & Throat: No Symptoms Respiratory: No Symptoms, No Cough, No Dyspnea Cardiac: No Symptoms, No Chest Pain, No Edema, No Syncope Abdominal/Gastrointestinal: No Symptoms, No Abdominal Pain, No Nausea, No Vomiting, No Diarrhea Genitourinary Symptoms: No Symptoms, No Dysuria Musculoskeletal: No Symptoms, No Back Pain, No Neck Pain Skin: No Symptoms, No Rash Neurological: No Symptoms, No Dizziness, No Focal Weakness, No Sensory Changes Psychological: No Symptoms Endocrine: No Symptoms Hematologic/Lymphatic: No Symptoms Immunological/Allergic: No Symptoms All Other Systems: Reviewed and Negative - Past Medical History Pertinent Past Medical History: Yes Neurological History: No Pertinent History ENT History: No Pertinent History Cardiac History: Arrhythmia, Other Respiratory History: No Pertinent History Endocrine Medical History: No Pertinent History Musculoskeletal History: No Pertinent History GI Medical History: No Pertinent History History: No Pertinent History Psycho-Social History: Anxiety, Depression Female Reproductive Disorders: No Pertinent History Other Medical History: kidney stones; a-fib, lupus - Past Surgical History Past Surgical History: Yes Neuro Surgical History: No Pertinent History Cardiac: No Pertinent History Respiratory: No Pertinent History Gastrointestinal: Appendectomy Genitourinary: No Pertinent History Musculoskeletal: No Pertinent History Female Surgical History: Dilation & Curettage, Section, Tubal Ligation Other Surgical History: ; pt states d/t tumor. Significant Family History: no pertinent family hx - Female History Hx Last Menstrual Period: 10/2012 Hx Now: No - Social History Smoking Status: Former smoker How long have you smoked: 12 Exposure to second hand smoke: Yes Drug Use: none Patient Lives Alone: No - Social Determinants of Health Will the patient participate in the screening: Yes Do you worry about a steady place to live?: No Do you have any problems with any of the following?: No known problems In the past 12 months,have you had to go without utilities?: No Transportation Issues: No Has anyone in your support network made you feel unsafe?: No Have you or anyone in your house had to go without enough: No - Nursing Vital Signs Nursing Vital Signs: Initial Vital Signs Temperature 97.7 F 11/28/23 18:40 Pulse Rate 89 11/28/23 18:40 Respiratory Rate 18 11/28/23 18:40 Blood Pressure 122/75 11/28/23 18:40 Pain Scale Pain Intensity 7 - Physical Exam General Appearance: no apparent distress, alert Eye Exam: PERRL/EOMI, eyes nml inspection Ears, Nose, Throat Exam: normal ENT inspection, TMs normal, pharynx normal, moist mucous membranes Neck Exam: normal inspection, non-tender, supple, full range of motion Respiratory Exam: normal breath sounds, lungs clear, airway intact, No respiratory distress Cardiovascular Exam: regular rate/rhythm, normal heart sounds, normal peripheral pulses Gastrointestinal/Abdomen Exam: soft, normal bowel sounds, No tenderness, No mass Back Exam: normal inspection, normal range of motion, No CVA tenderness, No vertebral tenderness Extremity Exam: normal inspection, normal range of motion, pelvis stable Neurologic Exam: alert, oriented x 3, cooperative, normal mood/affect, nml cerebellar function, nml station & gait, sensation nml, No motor deficits Skin Exam: normal color, warm, dry, No rash Lymphatic Exam: No adenopathy SpO2 Interpretation: normal SpO2: 98 O2 Delivery: Room Air - Course Nursing assessment & vital signs reviewed: Yes EKG Interpreted by Me: RATE (84), Sinus Rhythm, NORMAL AXIS, NORMAL INTERVALS - CT Exams Head CT Interpretation: Tele-radiologist Report (Continued normal head) Ordered Tests: Active Orders 24 hr Category Date Time Status Rag Sorter STAT Care 11/28/23 18:56 Active Clean Catch Urine Specimen STAT Care 11/28/23 18:30 Active EKG-ER Only STAT Care 11/28/23 18:55 Active IV Insertion STAT Care 11/28/23 18:55 Active HEAD WITHOUT CONTRAST [CT] Stat Exams 11/28/23 18:56 Taken CBC W DIFF Stat Lab 11/28/23 19:00 Completed CMP Stat Lab 11/28/23 19:00 Completed ETHYL ALCOHOL Stat Lab 11/28/23 19:00 Completed HCG QUALITATIVE, SERUM Stat Lab 11/28/23 19:00 Completed Lactic Acid Stat Lab 11/28/23 19:02 Completed MAGNESIUM Stat Lab 11/28/23 19:00 Completed TROPONIN Q4H Lab 11/28/23 19:00 Completed TROPONIN Q4H Lab 11/28/23 23:00 Ordered TROPONIN Q4H Lab 11/29/23 03:00 Ordered UA W/RFX UR CULTURE Stat Lab 11/28/23 18:12 Completed Urine Triage Profile Stat Lab 11/28/23 18:12 Completed Transfer Order Routine Transfer 11/28/23 Ordered Medication Summary Discontinued Medications Generic Name Dose Route Start Last Admin Trade Name Freq PRN Reason Stop Dose Admin Sodium Chloride 1,000 mls @ 999 mls/hr 11/28/23 18:55 11/28/23 19:11 Sodium Chloride 0.9% 1000 Ml IV 11/28/23 19:55 999 mls/hr .Q1H1M STA Administration Sodium Chloride Confirm 11/28/23 19:07 Sodium Chloride 0.9% 1000 Ml Administered 11/28/23 19:08 Dose 1,000 mls @ ud .ROUTE .STK-MED ONE Meclizine HCl 25 mg 11/28/23 18:55 11/28/23 19:10 Meclizine Hcl 25 Mg Tablet PO 11/28/23 18:56 25 mg STAT ONE Administration Meclizine HCl Confirm 11/28/23 19:07 Meclizine Hcl 25 Mg Tablet Administered 11/28/23 19:08 Dose 25 mg .ROUTE .STK-MED ONE Lab/Rad Data: Laboratory Result Diagrams 11/28/23 19:00 11/28/23 19:00 Laboratory Results 11/28/23 11/28/23 11/28/23 Range/Units 19:02 19:00 19:00 WBC (3.98-10.04) x10^3/uL RBC (3.93-5.22) x10^6/uL Hgb (11.2-15.7) g/dL Hct (34.1-44.9) % MCV (79.4-94.8) fL MCH (25.6-32.2) pg MCHC (32.2-35.5) g/dL RDW (11.7-14.4) % Plt Count (182-369) x10^3/uL MPV (9.4-12.3) fL Gran % (34.0-71.1) % Immature Gran % (Auto) (0.001-0.429) % Nucleat RBC Rel Count (0.00-0.2) % Eos # (Auto) (0.04-0.36) x10^3/uL Immature Gran # (Auto) (0.001-0.031) x10^3u/L Absolute Lymphs (auto) (1.18-3.74) x10^3/uL Absolute Monos (auto) (0.24-0.86) x10^3/uL Absolute Nucleated RBC (0.00-0.012) x10^3u/L Lymphocytes % (19.3-51.7) % Monocytes % (4.7-12.5) % Eosinophils % (0.7-5.8) % Basophils % (0.1-1.2) % Absolute Granulocytes (1.56-6.13) x10^3/uL Basophils # (0.01-0.08) x10^3/uL Sodium (135-145) mmol/L Potassium (3.5-5.1) mmol/L Chloride (98-107) mmol/L Carbon Dioxide (22-30) mmol/L Anion Gap (5-15) MEQ/L BUN (7-17) mg/dL Creatinine (0.52-1.04) mg/dL Estimated GFR ML/MIN Glucose (74-106) mg/dL Lactic Acid 1.3 (0.4-2.0) Calcium (8.4-10.2) mg/dL Magnesium (1.6-2.3) mg/dL Total Bilirubin (0.2-1.3) mg/dL AST (14-36) U/L ALT (0-35) U/L Alkaline Phosphatase (38-126) U/L Troponin I < 0.012 (0.000-0.033) ng/mL Serum Total Protein (6.3-8.2) g/dL Albumin (3.5-5.0) g/dL Serum HCG, Qual NEGATIVE (NEGATIVE) Urine Color (Yellow) Urine Appearance (Clear) Urine pH (4.6-8.0) Ur Specific [place] (1.005-1.030) Urine Protein (Negative) Urine Glucose (UA) (Negative) mg/dL Urine Ketones (Negative) Urine Blood (Negative) Urine Nitrite (Negative) Urine Bilirubin (Negative) Urine Urobilinogen (0.2) mg/dL Ur Leukocyte Esterase (Negative) U Hyaline Cast (Auto) (0-2) /LPF Urine Microscopic RBC (0-5) /HPF Urine Microscopic WBC (0-5) /HPF Ur Epithelial Cells (None Seen) /HPF Urine Bacteria (None Seen) /HPF Urine Culture Reflexed (NO) Urine Opiates Level (NEGATIVE) Ur Methadone (NEGATIVE) Urine Barbiturates (NEGATIVE) Ur Phencyclidine (PCP) (NEGATIVE) Urine Amphetamine (NEGATIVE) U Benzodiazepine Level (NEGATIVE) Urine Cocaine (NEGATIVE) Urine Marijuana (THC) (NEGATIVE) Ethyl Alcohol (0-10) mg/dL 11/28/23 11/28/23 11/28/23 Range/Units 19:00 19:00 18:12 WBC 8.4 (3.98-10.04) x10^3/uL RBC 4.56 (3.93-5.22) x10^6/uL Hgb 11.8 (11.2-15.7) g/dL Hct 37.8 (34.1-44.9) % MCV 82.9 (79.4-94.8) fL MCH 25.9 (25.6-32.2) pg MCHC 31.2 L (32.2-35.5) g/dL RDW 15.7 H (11.7-14.4) % Plt Count 336 (182-369) x10^3/uL MPV 9.4 (9.4-12.3) fL Gran % 54.6 (34.0-71.1) % Immature Gran % (Auto) 0.4 (0.001-0.429) % Nucleat RBC Rel Count 0.0 (0.00-0.2) % Eos # (Auto) 0.11 (0.04-0.36) x10^3/uL Immature Gran # (Auto) 0.03 (0.001-0.031) x10^3u/L Absolute Lymphs (auto) 3.16 (1.18-3.74) x10^3/uL Absolute Monos (auto) 0.46 (0.24-0.86) x10^3/uL Absolute Nucleated RBC 0.00 (0.00-0.012) x10^3u/L Lymphocytes % 37.7 (19.3-51.7) % Monocytes % 5.5 (4.7-12.5) % Eosinophils % 1.3 (0.7-5.8) % Basophils % 0.5 (0.1-1.2) % Absolute Granulocytes 4.58 (1.56-6.13) x10^3/uL Basophils # 0.04 (0.01-0.08) x10^3/uL Sodium 138 (135-145) mmol/L Potassium 3.6 (3.5-5.1) mmol/L Chloride 107 (98-107) mmol/L Carbon Dioxide 21 L (22-30) mmol/L Anion Gap 14.1 (5-15) MEQ/L BUN 10 (7-17) mg/dL Creatinine 0.58 (0.52-1.04) mg/dL Estimated GFR 119.5 ML/MIN Glucose 105 (74-106) mg/dL Lactic Acid (0.4-2.0) Calcium 9.5 (8.4-10.2) mg/dL Magnesium 1.8 (1.6-2.3) mg/dL Total Bilirubin 0.30 (0.2-1.3) mg/dL AST 22 (14-36) U/L ALT 17 (0-35) U/L Alkaline Phosphatase 87 (38-126) U/L Troponin I (0.000-0.033) ng/mL Serum Total Protein 7.9 (6.3-8.2) g/dL Albumin 4.1 (3.5-5.0) g/dL Serum HCG, Qual (NEGATIVE) Urine Color (Yellow) Urine Appearance (Clear) Urine pH (4.6-8.0) Ur Specific [place] (1.005-1.030) Urine Protein (Negative) Urine Glucose (UA) (Negative) mg/dL Urine Ketones (Negative) Urine Blood (Negative) Urine Nitrite (Negative) Urine Bilirubin (Negative) Urine Urobilinogen (0.2) mg/dL Ur Leukocyte Esterase (Negative) U Hyaline Cast (Auto) (0-2) /LPF Urine Microscopic RBC (0-5) /HPF Urine Microscopic WBC (0-5) /HPF Ur Epithelial Cells (None Seen) /HPF Urine Bacteria (None Seen) /HPF Urine Culture Reflexed (NO) Urine Opiates Level NEGATIVE (NEGATIVE) Ur Methadone NEGATIVE (NEGATIVE) Urine Barbiturates NEGATIVE (NEGATIVE) Ur Phencyclidine (PCP) NEGATIVE (NEGATIVE) Urine Amphetamine NEGATIVE (NEGATIVE) U Benzodiazepine Level NEGATIVE (NEGATIVE) Urine Cocaine NEGATIVE (NEGATIVE) Urine Marijuana (THC) NEGATIVE (NEGATIVE) Ethyl Alcohol < 10 (0-10) mg/dL 11/28/23 Range/Units 18:12 WBC (3.98-10.04) x10^3/uL RBC (3.93-5.22) x10^6/uL Hgb (11.2-15.7) g/dL Hct (34.1-44.9) % MCV (79.4-94.8) fL MCH (25.6-32.2) pg MCHC (32.2-35.5) g/dL RDW (11.7-14.4) % Plt Count (182-369) x10^3/uL MPV (9.4-12.3) fL Gran % (34.0-71.1) % Immature Gran % (Auto) (0.001-0.429) % Nucleat RBC Rel Count (0.00-0.2) % Eos # (Auto) (0.04-0.36) x10^3/uL Immature Gran # (Auto) (0.001-0.031) x10^3u/L Absolute Lymphs (auto) (1.18-3.74) x10^3/uL Absolute Monos (auto) (0.24-0.86) x10^3/uL Absolute Nucleated RBC (0.00-0.012) x10^3u/L Lymphocytes % (19.3-51.7) % Monocytes % (4.7-12.5) % Eosinophils % (0.7-5.8) % Basophils % (0.1-1.2) % Absolute Granulocytes (1.56-6.13) x10^3/uL Basophils # (0.01-0.08) x10^3/uL Sodium (135-145) mmol/L Potassium (3.5-5.1) mmol/L Chloride (98-107) mmol/L Carbon Dioxide (22-30) mmol/L Anion Gap (5-15) MEQ/L BUN (7-17) mg/dL Creatinine (0.52-1.04) mg/dL Estimated GFR ML/MIN Glucose (74-106) mg/dL Lactic Acid (0.4-2.0) Calcium (8.4-10.2) mg/dL Magnesium (1.6-2.3) mg/dL Total Bilirubin (0.2-1.3) mg/dL AST (14-36) U/L ALT (0-35) U/L Alkaline Phosphatase (38-126) U/L Troponin I (0.000-0.033) ng/mL Serum Total Protein (6.3-8.2) g/dL Albumin (3.5-5.0) g/dL Serum HCG, Qual (NEGATIVE) Urine Color Yellow (Yellow) Urine Appearance Cloudy A (Clear) Urine pH 5.5 (4.6-8.0) Ur Specific [place] >=1.030 A (1.005-1.030) Urine Protein Negative (Negative) Urine Glucose (UA) Negative (Negative) mg/dL Urine Ketones Trace A (Negative) Urine Blood Negative (Negative) Urine Nitrite Negative (Negative) Urine Bilirubin Negative (Negative) Urine Urobilinogen 1.0 A (0.2) mg/dL Ur Leukocyte Esterase Negative (Negative) U Hyaline Cast (Auto) NONE SEEN (0-2) /LPF Urine Microscopic RBC 0-2 (0-5) /HPF Urine Microscopic WBC 0-2 (0-5) /HPF Ur Epithelial Cells Few (None Seen) /HPF Urine Bacteria Rare A (None Seen) /HPF Urine Culture Reflexed ORDERED SEPARATELY (NO) Urine Opiates Level (NEGATIVE) Ur Methadone (NEGATIVE) Urine Barbiturates (NEGATIVE) Ur Phencyclidine (PCP) (NEGATIVE) Urine Amphetamine (NEGATIVE) U Benzodiazepine Level (NEGATIVE) Urine Cocaine (NEGATIVE) Urine Marijuana (THC) (NEGATIVE) Ethyl Alcohol (0-10) mg/dL - Progress Progress: improved Progress Note: Spoke to neurologist at 8:25 PM. Neurologist advises admission for MRI. Plan of care discussed with patient. She agrees to admission [facility] for further evaluation and treatment. Patient 38-year-old female presents to our ED for evaluation of dizziness facial heaviness and sensory changes. CT head negative for acute intracranial pathology. Laboratory workup sent and unremarkable. Teleneuro advises hospitalization. Patient agrees. Complexity problem addressed is moderate acute complicated. No critical care time. Complex of data reviewed and analyzed is extensive. Test ordered test reviewed results analyzed and correlated clinically with history and physical exam. Risk of complication and or risk morbidity/mortality patient management is high. Patient requires hospitalization for further evaluation and treatment. Plan of care established for shared decision making. No social determinants of health present impede follow-up. Patient voices no other complaints or concerns at this time. Portions of this note were created with voice recognition technology. There may be grammatical, spelling, punctuation or sound alike errors 11/28/23 20:33 Case discussed with hospitalist Dr. Pierre at 8:37 PM. Patient accepted for admission. 11/28/23 20:41 Counseled pt/family regarding: lab results, diagnosis, need for follow-up, rad results - Departure Departure Disposition: Observation Clinical Impression: Contusion of right hand, Dizziness, TIA (transient ischemic attack) Condition: Stable Critical Care Time: No Referrals: ERNESTO CRUMP [facility]PLAYER [Primary Care Provider] - Follow up/PCP as directed
[2023-11-28 20:38] VITALS: O2SAT 98
[2023-11-28 20:46] VITALS: BP 121/84; PULSE 82; RESP 16
[2023-11-28] MEDS ORDERED: BABY ASPIRIN 81 MG CHEW ONE (20:51)
[2023-11-28] MEDS: BABY ASPIRIN 81 MG CHEW PO ONE (20:51)
--- NOTE | 2023-11-29 08:39 | XRAY ---
Indication: Dizziness. Multiple contiguous axial images obtained through the head without contrast. Comparison: September 15, 2022 Normal appearing brain parenchyma, ventricles, and bony calvarium. Visualized paranasal sinuses and mastoid air cells are clear. Impression: Continued normal CT head without contrast exam.
== END 2023-11-28 21:11 | disposition left against medical advice (07) ==
LOC: ED 18:23
DX: G45.9 Transient cerebral ischemic attack, unspecified (principal); R42 Dizziness and giddiness; S60.221A Contusion of right hand, initial encounter
CPT/HCPCS: 36000; 36415; 70450; 80053; 80307; 81001; 82077; 83605; 83735; 84484; 84703; 85025; 93005; 93041; 99284; A9270-GY

== ENCOUNTER 2024-07-27 17:00 | Emergency (ER) | payer OTHER ==
[2024-07-27 17:14] VITALS: TEMP 98.4
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
[2024-07-27 18:00] VITALS: RESP 18
[2024-07-27] MEDS: TORAdol 30 mg Injection IM ONE (18:05)
[2024-07-27 18:07] VITALS: BP 125/78; PULSE 97; O2SAT 97
--- NOTE | 2024-07-27 20:34 | XRAY ---
Indication: Pain following injury. Comparison: None 4 view left knee demonstrates tiny medial supra condyle bone island. No other bony, articular, or soft tissue abnormalities.
== END 2024-07-27 18:16 | disposition home or self-care (01) ==
LOC: ED 17:00
DX: S89.92XA Unspecified injury of left lower leg, initial encounter (principal); S99.912A Unspecified injury of left ankle, initial encounter; S99.922A Unspecified injury of left foot, initial encounter; V04.90XA Pedestrian on foot injured in collision with heavy transport vehicle or bus, unspecified whether traffic or nontraffic accident, initial encounter; Z79.899 Other long term (current) drug therapy
CPT/HCPCS: 73564; 99282; 99283

== ENCOUNTER 2025-02-20 12:50 | Emergency (ER) | payer OTHER ==
[2025-02-20 13:00] VITALS: TEMP 97.9
[2025-02-20] MEDS ORDERED: BABY ASPIRIN 81 MG CHEW ONE (13:04)
[2025-02-20] MEDS: BABY ASPIRIN 81 MG CHEW PO ONE (13:04)
[2025-02-20 13:19] LABS: BASOPHIL % 0.5 % (0.1-1.2); Basophil (Absolute #) 0.04 x10^3/uL (0.01-0.08); Eosinophil (Absolute #) 0.07 x10^3/uL (0.04-0.36); Hematocrit 37.7 % (34.1-44.9); Hemoglobin 11.7 g/dL (11.2-15.7); IMMATURE GRAN # 0.04 x10^3u/L (0.001-0.031); IMMATURE GRAN % 0.5 % (0.001-0.429); Lymphocyte (Absolute #) 2.24 x10^3/uL (1.18-3.74); Mean Corpuscular Hemoglobin 25.7 pg (25.6-32.2); Mean Corpuscular Hgb Concent. 31.0 g/dL (32.2-35.5); Monocyte (Absolute #) 0.47 x10^3/uL (0.24-0.86); NUCLEATED RBC # 0.00 x10^3u/L (0.00-0.012); NUCLEATED RBC % 0.0 % (0.00-0.2); Platelet Count 344 x10^3/uL (182-369); Red Blood Count 4.55 x10^6/uL (3.93-5.22); White Blood Count 7.5 x10^3/uL (3.98-10.04)
--- NOTE | 2025-02-20 13:29 | XRAY ---
Indication: Chest pain. Comparison: January 18, 2023 Portable chest again demonstrates normal heart, lungs, and bony thorax.
[2025-02-20 13:34] LABS: INR 0.95 (0.8-3.0); PROTIME 10.7 SECONDS (9.4-12.5); PTT 24.7 SECONDS (25.1-36.5)
--- NOTE | 2025-02-20 13:38 | ERPHSYRPT ---
- History of Present Illness Time Seen by Provider: 02/20/25 13:00 Historian: patient, family, EMS Exam Limitations: no limitations Patient Subjective Stated Complaint: Pt. states, "I took my B12 shot because my B12 has been really low. Right after I took it I started feeling sick like weak, shaky and nauseas, then my heart rate dropped." Triage Nursing Assessment: Pt. arrives by ambulance on a stretcher, A&Ox3, REsp. even unlabored, Skin P/W/D, No edema. ST on monitor. 22 guage iv in Left hand with NS infusing wide open. Able to move all 4 ext. Physician History: This is an obese 39-year-old white female patient who has a history of arrhythmias/atrial fibrillation and sees data warehouse manager Dr. Rodriguez and whose primary care provider is nurse ariana Garcia with chest pain and concern that she might be in "cardiac arrest". Patient has a significant history of anxiety and depression as well as lupus. Patient arrives to the emergency department anxious and her vital signs are stable and she is afebrile. Patient states that she also has been feeling shaky and weak for several days. She describes the pain as substernal central achiness without radiation Timing/Duration: today Activities at Onset: none Quality: aching Location: substernal, central Chest Pain Radiation: no radiation Severity of Pain-Max: mild Severity of Pain-Current: mild Modifying Factors: Improves With: nothing Associated Symptoms: denies symptoms Prior Chest Pain/Cardiac Workup: no prior chest pain Nitro Today/Relief: no nitro taken today Aspirin Treatment Today: 81 mg x 4, provided by ED Allergies/Adverse Reactions: ceftriaxone [From Rocephin] Allergy (Severe, Verified 12/04/24 12:35) hives and swelling hydromorphone HCl [From Dilaudid] Allergy (Severe, Verified 12/04/24 12:35) Anaphylactic Reaction nitrofurantoin [From Macrobid] Allergy (Severe, Verified 12/04/24 12:35) Swelling azithromycin [From Zithromax] Allergy (Intermediate, Verified 12/04/24 12:35) Hives erythromycin base [Erythromycin Base] Allergy (Mild, Verified 12/04/24 12:35) Tightness of Throat cinnamon Allergy (Verified 12/04/24 12:35) clonazepam [From Klonopin] Allergy (Verified 12/04/24 12:35) Swelling clonidine Allergy (Verified 12/04/24 12:35) Hives prednisone Allergy (Verified 12/04/24 12:35) diphenhydramine [From Benadryl] Adverse Reaction (Intermediate, Verified 12/04/24 12:35) Vomiting lorazepam [From Ativan] Adverse Reaction (Verified 12/04/24 12:35) Swelling of Tongue and Lips morphine Adverse Reaction (Verified 12/04/24 12:35) Hives Home Medications: Amlodipine Besylate 5 mg [Norvasc 5 mg] 2.5 mg PO DAILY 02/20/25 [History] Cyanocobalamin (Vitamin B-12) [Cyanocobalamin Injection] 1,000 mcg IJ DIRECTIONS UNKNOWN 02/20/25 [History] Cyanocobalamin (Vitamin B-12) [Vitamin B-12] 1 tab PO DAILY 02/20/25 [History] Desvenlafaxine Succinate [Desvenlafaxine Succinate ER] 50 mg PO DAILY 02/20/25 [History] Ezetimibe [Zetia] 10 mg PO DAILY 02/20/25 [History] lamoTRIgine [Lamotrigine] 25 mg PO BID 02/20/25 [History] Hx Tetanus, Diphtheria Vaccination/Date Given: Yes Hx Influenza Vaccination/Date Given: Yes Hx Pneumococcal Vaccination/Date Given: No Travel Risk - International Travel Have you traveled outside of the country in past 3 weeks: No - Emerging Infectious Disease Are you exhibiting symptoms associated with any current EIDs: No - Review of Systems Constitutional: No Symptoms Eyes: No Symptoms Ears, Nose, & Throat: No Symptoms Respiratory: No Symptoms Cardiac: Chest Pain Abdominal/Gastrointestinal: No Symptoms Genitourinary Symptoms: No Symptoms Musculoskeletal: No Symptoms Skin: No Symptoms Neurological: No Symptoms Psychological: Anxiety Endocrine: No Symptoms Hematologic/Lymphatic: No Symptoms Immunological/Allergic: No Symptoms All Other Systems: Reviewed and Negative - Past Medical History Pertinent Past Medical History: Yes Neurological History: No Pertinent History ENT History: No Pertinent History Cardiac History: Arrhythmia, Other Respiratory History: No Pertinent History Endocrine Medical History: No Pertinent History Musculoskeletal History: No Pertinent History GI Medical History: No Pertinent History History: No Pertinent History Psycho-Social History: Anxiety, Depression Female Reproductive Disorders: No Pertinent History Other Medical History: kidney stones; a-fib, lupus - Past Surgical History Past Surgical History: Yes Neuro Surgical History: No Pertinent History Cardiac: No Pertinent History Respiratory: No Pertinent History Gastrointestinal: Appendectomy Genitourinary: No Pertinent History Musculoskeletal: No Pertinent History Female Surgical History: Dilation & Curettage, Section, Tubal Ligation Other Surgical History: ; pt states d/t tumor. Significant Family History: no pertinent family hx - Female History Hx Last Menstrual Period: 10/2012 Hx Now: No - Social History Smoking Status: Never smoker How long have you smoked: vape Drug Use: none - Social Determinants of Health Will the patient participate in the screening: Declined to provide - Nursing Vital Signs Nursing Vital Signs: Initial Vital Signs Temperature 97.9 F 02/20/25 12:51 Pulse Rate 96 H 02/20/25 12:51 Respiratory Rate 18 02/20/25 12:51 Blood Pressure 134/87 02/20/25 12:51 O2 Sat by Pulse Oximetry 96 02/20/25 12:51 Pain Scale Pain Intensity 2 - Physical Exam General Appearance: no apparent distress, alert, anxiety, obese Eye Exam: PERRL/EOMI, eyes nml inspection Ears, Nose, Throat Exam: normal ENT inspection, moist mucous membranes Neck Exam: normal inspection, non-tender, supple, full range of motion Respiratory Exam: normal breath sounds, chest tenderness, lungs clear, airway intact, No respiratory distress Cardiovascular Exam: regular rate/rhythm, normal heart sounds, normal peripheral pulses Gastrointestinal/Abdomen Exam: soft, normal bowel sounds, No tenderness Pelvic Exam: not done Rectal Exam: not done Back Exam: normal inspection, normal range of motion, No CVA tenderness, No vertebral tenderness Extremity Exam: normal inspection, normal range of motion, pelvis stable Neurologic Exam: alert, oriented x 3, cooperative, 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 No acute ischemia on today's twelve-lead EKG. There is no change when compared to similar twelve-lead EKG study dated 12/05/2024.) Ordered Tests: Active Orders 24 hr Category Date Time Status Dyeing Machine Back Tender STAT Care 02/20/25 13:02 Active EKG-ER Only STAT Care 02/20/25 13:01 Active IV Insertion STAT Care 02/20/25 13:01 Active Pulse Oximetry (ED) STAT Care 02/20/25 13:01 Active CHEST 1 VIEW (PORTABLE) Stat Exams 02/20/25 13:01 Completed CBC W DIFF Stat Lab 02/20/25 13:15 Completed CMP Stat Lab 02/20/25 13:15 Completed D-DIMER QUANTITATIVE Stat Lab 02/20/25 13:15 Completed PROTIME WITH INR Stat Lab 02/20/25 13:15 Completed PTT Stat Lab 02/20/25 13:15 Completed TROPONIN Q4H Lab 02/20/25 13:15 Completed TROPONIN Q4H Lab 02/20/25 17:15 Ordered TROPONIN Q4H Lab 02/20/25 21:15 Ordered UA W/RFX UR CULTURE Stat Lab 02/20/25 13:39 Completed Medication Summary Discontinued Medications Generic Name Dose Route Start Last Admin Trade Name Freq PRN Reason Stop Dose Admin Aspirin 324 mg 02/20/25 13:01 02/20/25 13:04 Aspirin 81 Mg Tab.Chew PO 02/20/25 13:02 324 mg STAT ONE Administration Aspirin Confirm 02/20/25 13:04 Aspirin 81 Mg Tab.Chew Administered 02/20/25 13:05 Dose 324 mg .ROUTE .STK-MED ONE Lab/Rad Data: Laboratory Result Diagrams 02/20/25 13:15 02/20/25 13:15 Laboratory Results 02/20/25 02/20/25 02/20/25 Range/Units 13:39 13:15 13:15 WBC (3.98-10.04) x10^3/uL RBC (3.93-5.22) x10^6/uL Hgb (11.2-15.7) g/dL Hct (34.1-44.9) % MCV (79.4-94.8) fL MCH (25.6-32.2) pg MCHC (32.2-35.5) g/dL RDW (11.7-14.4) % Plt Count (182-369) x10^3/uL MPV (9.4-12.3) fL Gran % (34.0-71.1) % Immature Gran % (Auto) (0.001-0.429) % Nucleat RBC Rel Count (0.00-0.2) % Eos # (Auto) (0.04-0.36) x10^3/uL Immature Gran # (Auto) (0.001-0.031) x10^3u/L Absolute Lymphs (auto) (1.18-3.74) x10^3/uL Absolute Monos (auto) (0.24-0.86) x10^3/uL Absolute Nucleated RBC (0.00-0.012) x10^3u/L Lymphocytes % (19.3-51.7) % Monocytes % (4.7-12.5) % Eosinophils % (0.7-5.8) % Basophils % (0.1-1.2) % Absolute Granulocytes (1.56-6.13) x10^3/uL Basophils # (0.01-0.08) x10^3/uL PT 10.7 (9.4-12.5) SECONDS INR 0.95 (0.8-3.0) APTT 24.7 L (25.1-36.5) SECONDS D-Dimer 0.23 (0.0-0.50) mg/L Sodium (135-145) mmol/L Potassium (3.5-5.1) mmol/L Chloride (98-107) mmol/L Carbon Dioxide (22-30) mmol/L Anion Gap (5-15) MEQ/L BUN (7-17) mg/dL Creatinine (0.52-1.04) mg/dL Estimated GFR ML/MIN Glucose (74-106) mg/dL Calcium (8.4-10.2) mg/dL Total Bilirubin (0.2-1.3) mg/dL AST (14-36) U/L ALT (0-35) U/L Alkaline Phosphatase (38-126) U/L Troponin I < 0.012 (0.000-0.033) ng/mL Serum Total Protein (6.3-8.2) g/dL Albumin (3.5-5.0) g/dL Urine Color Yellow (Yellow) Urine Appearance Clear (Clear) Urine pH 7.0 (4.6-8.0) Ur Specific [place] 1.020 (1.005-1.030) Urine Protein Negative (Negative) Urine Glucose (UA) Negative (Negative) mg/dL Urine Ketones Negative (Negative) Urine Blood Negative (Negative) Urine Nitrite Negative (Negative) Urine Bilirubin Negative (Negative) Urine Urobilinogen 0.2 (0.2) mg/dL Ur Leukocyte Esterase Trace A (Negative) U Hyaline Cast (Auto) 3-5 A (0-2) /LPF Urine Microscopic RBC 3-5 (0-5) /HPF Urine Microscopic WBC 3-5 (0-5) /HPF Ur Epithelial Cells Moderate A (None Seen) /HPF Urine Bacteria Moderate A (None Seen) /HPF Urine Culture Reflexed NO (NO) 02/20/25 02/20/25 Range/Units 13:15 13:15 WBC 7.5 (3.98-10.04) x10^3/uL RBC 4.55 (3.93-5.22) x10^6/uL Hgb 11.7 (11.2-15.7) g/dL Hct 37.7 (34.1-44.9) % MCV 82.9 (79.4-94.8) fL MCH 25.7 (25.6-32.2) pg MCHC 31.0 L (32.2-35.5) g/dL RDW 15.8 H (11.7-14.4) % Plt Count 344 (182-369) x10^3/uL MPV 9.6 (9.4-12.3) fL Gran % 61.9 (34.0-71.1) % Immature Gran % (Auto) 0.5 H (0.001-0.429) % Nucleat RBC Rel Count 0.0 (0.00-0.2) % Eos # (Auto) 0.07 (0.04-0.36) x10^3/uL Immature Gran # (Auto) 0.04 H (0.001-0.031) x10^3u/L Absolute Lymphs (auto) 2.24 (1.18-3.74) x10^3/uL Absolute Monos (auto) 0.47 (0.24-0.86) x10^3/uL Absolute Nucleated RBC 0.00 (0.00-0.012) x10^3u/L Lymphocytes % 29.9 (19.3-51.7) % Monocytes % 6.3 (4.7-12.5) % Eosinophils % 0.9 (0.7-5.8) % Basophils % 0.5 (0.1-1.2) % Absolute Granulocytes 4.62 (1.56-6.13) x10^3/uL Basophils # 0.04 (0.01-0.08) x10^3/uL PT (9.4-12.5) SECONDS INR (0.8-3.0) APTT (25.1-36.5) SECONDS D-Dimer (0.0-0.50) mg/L Sodium 137 (135-145) mmol/L Potassium 3.9 (3.5-5.1) mmol/L Chloride 111 H (98-107) mmol/L Carbon Dioxide 16 L* (22-30) mmol/L Anion Gap 13.5 (5-15) MEQ/L BUN 9 (7-17) mg/dL Creatinine 0.56 (0.52-1.04) mg/dL Estimated GFR 119.7 ML/MIN Glucose 117 H (74-106) mg/dL Calcium 9.3 (8.4-10.2) mg/dL Total Bilirubin 0.20 (0.2-1.3) mg/dL AST 22 (14-36) U/L ALT 21 (0-35) U/L Alkaline Phosphatase 68 (38-126) U/L Troponin I (0.000-0.033) ng/mL Serum Total Protein 7.4 (6.3-8.2) g/dL Albumin 4.1 (3.5-5.0) g/dL Urine Color (Yellow) Urine Appearance (Clear) Urine pH (4.6-8.0) Ur Specific [place] (1.005-1.030) Urine Protein (Negative) Urine Glucose (UA) (Negative) mg/dL Urine Ketones (Negative) Urine Blood (Negative) Urine Nitrite (Negative) Urine Bilirubin (Negative) Urine Urobilinogen (0.2) mg/dL Ur Leukocyte Esterase (Negative) U Hyaline Cast (Auto) (0-2) /LPF Urine Microscopic RBC (0-5) /HPF Urine Microscopic WBC (0-5) /HPF Ur Epithelial Cells (None Seen) /HPF Urine Bacteria (None Seen) /HPF Urine Culture Reflexed (NO) - Progress Progress: improved, re-examined Air Movement: good Progress Note: 02/20/25 13:37 My medical decision making and the assignment of moderate complexity to this patient's medical issue today is based on review of the patient's past medical history, review of the patient's medication list, reviewed patient drug allergy list, history present illness and physical findings on examination. The workup in this patient includes placement of intravenous line, twelve-lead EKG, CBC, CMP, magnesium level, troponin level D-dimer level, chest x-ray. Differential diagnosis includes was not limited to anemia, myocardial infarction, pulmonary embolus, pneumonia, arrhythmia, electrolyte abnormalities, dehydration 02/20/25 13:40 I interpreted the preliminary chest x-ray report. I see no acute cardiopulmonary process. The final chest x-ray report was interpreted by the radiologist and his interpretation agrees with my interpretation. 02/20/25 15:00 I interpreted the patient's laboratory data results. Based on the laboratory data results patient does have a CO2 of 16. However she was hyperventilating. Her vital signs are stable. She no longer has chest pain. The remainder of her workup is negative 02/20/25 15:01 Patient's heart score is less than 4 and she has no diagnosed history of coronary artery disease. Blood Culture(s) Obtained: No Antibiotics given: No Counseled pt/family regarding: lab results, diagnosis, need for follow-up, rad results Medical Desision Making - Independent Historian Additional History obtained from: Family - Diagnostic Testing Diagnostic test were ordered, analyzed, and reviewed by me: Yes Radiological Interpretation: Interpreted by me, Reviewed by me, Teleradiologist Report - Risk of complications Low Risk: Low risk of morbidity from additional dx testing or treatment - Departure Departure Disposition: Home Clinical Impression: Anxiety about health, Nonspecific chest pain Condition: Stable Critical Care Time: No Referrals: CRISTOBAL STONE MD [Primary Care Provider, [facility]] - Follow up/PCP as directed Additional Instructions: Slow your breathing down. Drink plenty of fluids. Take all your medications as prescribed. Call your prescribing provider today, 02/20/2025, to make an appointment to be seen in the next 3 to 5 days.
[2025-02-20 13:43] LABS: Calcium 9.3 mg/dL (8.4-10.2); Creatinine 1 0.56 mg/dL (0.52-1.04); EST GLOMERULAR FILTRATION RATE 119.7 ML/MIN; Glucose 117.0 mg/dL (74-106); Potassium 3.9 mmol/L (3.5-5.1); SGOT/AST 22.0 U/L (14-36); SGPT/ALT 21.0 U/L (0-35); Total Protein 7.4 g/dL (6.3-8.2)
[2025-02-20 13:50] LABS: Carbon Dioxide 16.0 mmol/L (22-30)
[2025-02-20 14:29] LABS: Glucose, Urine Negative (Negative); Protein,Urine Dip Negative (Negative)
[2025-02-20 15:03] VITALS: BP 110/69; PULSE 76; RESP 16; O2SAT 96
== END 2025-02-20 15:11 | disposition home or self-care (01) ==
LOC: ED 12:50
DX: F45.9 Somatoform disorder, unspecified (principal); R07.9 Chest pain, unspecified; R53.1 Weakness; Z79.899 Other long term (current) drug therapy

== ENCOUNTER 2025-03-25 14:22 | Emergency (ER) | payer OTHER ==
[2013-01-11 20:09] VITALS: BP 128/72
== END 2025-03-25 15:54 | disposition left against medical advice (07) ==
LOC: ED 14:22
DX: Z53.21 Procedure and treatment not carried out due to patient leaving prior to being seen by health care provider (principal)

== ENCOUNTER 2025-04-08 15:49 | Emergency (ER) | payer OTHER ==
[2025-04-08 15:52] VITALS: TEMP 98.8
--- NOTE | 2025-04-08 15:55 | ERPHSYRPT ---
- History of Present Illness Time Seen by Provider: 04/08/25 15:52 Source: patient, EMS Physician History: This is a 39-year-old female Sergio stated history of seizures stating she has 7-8 seizures per week that she is "just dealing with them" due to see a doctor in [place] in June and 3 months. Patient is not on seizure medications. Patient states she had a hives on Keppra in the past, but is on no other seizure medication. Patient states she also has a history of A-fib and has had a history of strokes. She takes 4 baby aspirin a day and no other medication. Patient denies any headache or focal neurologic changes. No chest pain or shortness of breath. No abdominal pain. No nausea or vomiting. Patient denies drugs or alcohol use. EMS blood sugar was in the 130s. Patient was sinus rhythm on monitor. Allergies/Adverse Reactions: ceftriaxone [From Rocephin] Allergy (Severe, Verified 04/08/25 15:58) hives and swelling hydromorphone HCl [From Dilaudid] Allergy (Severe, Verified 04/08/25 15:58) Anaphylactic Reaction nitrofurantoin [From Macrobid] Allergy (Severe, Verified 04/08/25 15:58) Swelling azithromycin [From Zithromax] Allergy (Intermediate, Verified 04/08/25 15:58) Hives erythromycin base [Erythromycin Base] Allergy (Mild, Verified 04/08/25 15:58) Tightness of Throat cinnamon Allergy (Verified 04/08/25 15:58) clonazepam [From Klonopin] Allergy (Verified 04/08/25 15:58) Swelling clonidine Allergy (Verified 04/08/25 15:58) Hives prednisone Allergy (Verified 04/08/25 15:58) diphenhydramine [From Benadryl] Adverse Reaction (Intermediate, Verified 04/08/25 15:58) Vomiting lorazepam [From Ativan] Adverse Reaction (Verified 04/08/25 15:58) Swelling of Tongue and Lips morphine Adverse Reaction (Verified 04/08/25 15:58) Hives Home Medications: No Reportable Medications [No Reported Medications] 04/08/25 [History] Hx Tetanus, Diphtheria Vaccination/Date Given: Yes Hx Influenza Vaccination/Date Given: Yes Hx Pneumococcal Vaccination/Date Given: No Travel Risk - Emerging Infectious Disease Are you exhibiting symptoms associated with any current EIDs: No - Review of Systems All Other Systems: Reviewed and Negative (As per HPI otherwise negative) - Past Medical History Pertinent Past Medical History: Yes Neurological History: No Pertinent History ENT History: No Pertinent History Cardiac History: Arrhythmia, Other Respiratory History: No Pertinent History Endocrine Medical History: No Pertinent History Musculoskeletal History: No Pertinent History GI Medical History: No Pertinent History History: No Pertinent History Psycho-Social History: Anxiety, Depression Female Reproductive Disorders: No Pertinent History Other Medical History: kidney stones; a-fib, lupus - Past Surgical History Past Surgical History: Yes Neuro Surgical History: No Pertinent History Cardiac: No Pertinent History Respiratory: No Pertinent History Gastrointestinal: Appendectomy Genitourinary: No Pertinent History Musculoskeletal: No Pertinent History Female Surgical History: Dilation & Curettage, Section, Tubal Ligation Other Surgical History: ; pt states d/t tumor. Significant Family History: no pertinent family hx - Female History Hx Last Menstrual Period: 10/2012 - Social History Smoking Status: Never smoker How long have you smoked: vape Drug Use: none - Social Determinants of Health Will the patient participate in the screening: Declined to provide - Nursing Vital Signs Nursing Vital Signs: Initial Vital Signs Temperature 98.8 F 04/08/25 15:50 Pulse Rate 84 04/08/25 15:50 Respiratory Rate 12 04/08/25 15:50 Blood Pressure 139/91 04/08/25 15:50 O2 Sat by Pulse Oximetry 97 04/08/25 15:50 Pain Scale Pain Intensity 0 - Physical Exam SpO2: 97 Comments: 04/08/25 15:54 General: Well-nourished well-developed. No apparent distress. HEENT: Normocephalic atraumatic no obvious facial or neck deformity or injury. Neck: Supple. No deformity or mass noted. CV: RRR NL Perfusion. No edema Resp: No Respiratory distress or adventitious breath sounds Abd: ND SNT MSK: No deformity or TTP Neuro: Alert and [place] x4. No gross focal neurologic changes Psych: No SI, HI or grave disability - Course EKG Interpreted by Me: Other (EKG 4:10 PM normal sinus rhythm 88 bpm. Motion artifact. No ischemic changes.) Ordered Tests: Active Orders 24 hr Category Date Time Status EKG-ER Only STAT Care 04/08/25 15:55 Active Alcohol [ETHYL ALCOHOL] Stat Lab 04/08/25 16:05 Completed CBC W DIFF Stat Lab 04/08/25 16:05 Completed CMP Stat Lab 04/08/25 16:05 Completed HCG QUALITATIVE, SERUM Stat Lab 04/08/25 16:05 Completed MAGNESIUM Stat Lab 04/08/25 16:05 Completed UA W/RFX UR CULTURE Stat Lab 04/08/25 17:05 Ordered Urine Triage Profile Stat Lab 04/08/25 17:05 Ordered Medication Summary Discontinued Medications Generic Name Dose Route Start Last Admin Trade Name [place] PRN Reason Stop Dose Admin Sodium Chloride 1,000 mls @ 999 mls/hr 04/08/25 15:55 04/08/25 17:04 Sodium Chloride 0.9% 1000 Ml IV 04/08/25 16:55 Infused .Q1H1M STA Infusion Sodium Chloride Confirm 04/08/25 15:57 Sodium Chloride 0.9% 1000 Ml Administered 04/08/25 15:58 Dose 1,000 mls @ ud .ROUTE .STK-MED ONE Lab/Rad Data: Laboratory Result Diagrams 04/08/25 16:05 04/08/25 16:05 Laboratory Results 04/08/25 04/08/25 04/08/25 Range/Units 16:05 16:05 16:05 WBC 7.1 (3.98-10.04) x10^3/uL RBC 4.67 (3.93-5.22) x10^6/uL Hgb 11.9 (11.2-15.7) g/dL Hct 38.4 (34.1-44.9) % MCV 82.2 (79.4-94.8) fL MCH 25.5 L (25.6-32.2) pg MCHC 31.0 L (32.2-35.5) g/dL RDW 16.5 H (11.7-14.4) % Plt Count 334 (182-369) x10^3/uL MPV 9.3 L (9.4-12.3) fL Gran % 62.1 (34.0-71.1) % Immature Gran % (Auto) 0.3 (0.001-0.429) % Nucleat RBC Rel Count 0.0 (0.00-0.2) % Eos # (Auto) 0.10 (0.04-0.36) x10^3/uL Immature Gran # (Auto) 0.02 (0.001-0.031) x10^3u/L Absolute Lymphs (auto) 2.18 (1.18-3.74) x10^3/uL Absolute Monos (auto) 0.38 (0.24-0.86) x10^3/uL Absolute Nucleated RBC 0.00 (0.00-0.012) x10^3u/L Lymphocytes % 30.5 (19.3-51.7) % Monocytes % 5.3 (4.7-12.5) % Eosinophils % 1.4 (0.7-5.8) % Basophils % 0.4 (0.1-1.2) % Absolute Granulocytes 4.43 (1.56-6.13) x10^3/uL Basophils # 0.03 (0.01-0.08) x10^3/uL Sodium 136 (135-145) mmol/L Potassium 3.7 (3.5-5.1) mmol/L Chloride 107 (98-107) mmol/L Carbon Dioxide 20 L (22-30) mmol/L Anion Gap 13.1 (5-15) MEQ/L BUN 9 (7-17) mg/dL Creatinine 0.66 (0.52-1.04) mg/dL Estimated GFR 115.1 ML/MIN Glucose 100 (74-106) mg/dL Calcium 9.3 (8.4-10.2) mg/dL Magnesium 1.9 (1.6-2.3) mg/dL Total Bilirubin 0.30 (0.2-1.3) mg/dL AST 33 (14-36) U/L ALT 34 (0-35) U/L Alkaline Phosphatase 79 (38-126) U/L Serum Total Protein 8.1 (6.3-8.2) g/dL Albumin 4.3 (3.5-5.0) g/dL Serum HCG, Qual NEGATIVE (NEGATIVE) Ethyl Alcohol < 10 (0-10) mg/dL - Progress Progress: improved Progress Note: 04/08/25 16:53 Staff notes to myself the patient has a history of frequent visits for anxiety type complaints. That she does not have a history of stroke or atrial fibrillation she states. It is questionable whether patient has an actual seizure as she states she had multiple events and is fully awake and alert on arrival. Patient not on seizure medication although she states she has 8 seizures per week. Patient does not have follow-up for what it appears to be neurology until June. We do recommend that she call to expedite being seen sooner. 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 It was myself initiated the query. Assured by EMS that they have been put in watch by the school photographs detailer. 04/08/25 16:55 04/08/25 17:33 During patient's stay she states that she feels she is can have a seizure. She is watching has no seizure-like activity. She has been sitting on her phone in no distress. I feel as patient has had this long-term and is question whether she has seizures, will not start epileptic medications and have her continue to follow-up with her neurologist outpatient. She has been observed and will be discharged with precautions at this time. The patient's condition was discussed with themselves and/or family members in great detail. Precautions are given and need to return or call 911 immediately for any changes or worsening are discussed. Instructions on patient's condition and noting that conditions can change or worsen and that diagnosis are presumptive and can evolve are discussed. All questions were answered. All concerns addressed at this time - Departure Departure Disposition: Home Clinical Impression: Seizure-like activity Condition: Stable Critical Care Time: No Referrals: CRISTOBAL STONE MD [Primary Care Provider, [facility]] - Follow up/PCP as directed Additional Instructions: Call your doctor that you are supposed to follow-up for specialty care and move your appointment up to a sooner date. Call your primary care doctor in the morning. Ensure that you have a neurologist that follows you closely decide whether they want you on antiepileptic medications. You have been evaluated for an emergency medical condition. At this time, given the current history and events presented, the examination conducted and any possible testing you may have had, you have been given a presumptive diagnosis based on the current information is obtained. Your discharge diagnosis is presumptive and not necessarily definitive. Medical conditions present in various stages very often without all the symptoms or findings described in medical literature. Other symptoms, concerns or conditions may arise and your diagnoses may evolve or change and/or your condition could potentially worsen after the time of disposition or discharge. You have been given a presumptive diagnosis and your condition appears to be stable, but your medical issues can change or worsen. If there is worsening of your condition including difficulty breathing, swallowing, speaking, chest pain or pressure, intractable vomiting, worsening or changing mental status, numbness, tingling or weakness of your body or arms or legs, thoughts or plans of harming yourself or others, or any other concerns, call 911 and/or return immediately to the closest emergency department. It is important you follow-up with your doctor on the next business day. Call your doctor, or the referral provided if you do not have a doctor, when they open to schedule a follow-up appointment in the next 1 or latest 2 days. Please refer to the attached sheet. If you do not have primary care doctor, you can call the [facility] referral line at [phone]. Return immediately if your symptoms worsen or if you are unable to obtain further care. My team and I thank you for choosing the [facility] emergency healthcare needs. We wish you a speedy recovery. Very respectfully, Dr. Juma Martinez M.D. [employer] Board-certified Emergency Physician
[2025-04-08 16:10] LABS: BASOPHIL % 0.4 % (0.1-1.2); Basophil (Absolute #) 0.03 x10^3/uL (0.01-0.08); Eosinophil (Absolute #) 0.10 x10^3/uL (0.04-0.36); Hematocrit 38.4 % (34.1-44.9); Hemoglobin 11.9 g/dL (11.2-15.7); IMMATURE GRAN # 0.02 x10^3u/L (0.001-0.031); IMMATURE GRAN % 0.3 % (0.001-0.429); Lymphocyte (Absolute #) 2.18 x10^3/uL (1.18-3.74); Mean Corpuscular Hemoglobin 25.5 pg (25.6-32.2); Mean Corpuscular Hgb Concent. 31.0 g/dL (32.2-35.5); Monocyte (Absolute #) 0.38 x10^3/uL (0.24-0.86); NUCLEATED RBC # 0.00 x10^3u/L (0.00-0.012); NUCLEATED RBC % 0.0 % (0.00-0.2); Platelet Count 334 x10^3/uL (182-369); Red Blood Count 4.67 x10^6/uL (3.93-5.22); White Blood Count 7.1 x10^3/uL (3.98-10.04)
[2025-04-08 16:24] LABS: Calcium 9.3 mg/dL (8.4-10.2); Carbon Dioxide 20 mmol/L (22-30); Creatinine 1 0.66 mg/dL (0.52-1.04); EST GLOMERULAR FILTRATION RATE 115.1 ML/MIN; ETHYL ALCOHOL < 10 mg/dL (0-10); Glucose 100 mg/dL (74-106); Potassium 3.7 mmol/L (3.5-5.1); SGOT/AST 33 U/L (14-36); SGPT/ALT 34 U/L (0-35); Total Protein 8.1 g/dL (6.3-8.2)
[2025-04-08 17:05] LABS: HCG SERUM TEST NEGATIVE (NEGATIVE)
[2025-04-08 17:07] VITALS: PULSE 79; RESP 18
[2025-04-08 17:35] VITALS: O2SAT 97
[2025-04-08 17:50] VITALS: BP 125/79
[2025-04-08 18:06] LABS: Amphetamine,Urine NEGATIVE (NEGATIVE); Barbiturate,Urine NEGATIVE (NEGATIVE); Benzodiazepine,Urine NEGATIVE (NEGATIVE); Cocaine,Urine NEGATIVE (NEGATIVE); Methadone,Urine NEGATIVE (NEGATIVE); Opiate,Urine NEGATIVE (NEGATIVE); PCP,Urine NEGATIVE (NEGATIVE); THC,Urine NEGATIVE (NEGATIVE)
[2025-04-08 18:11] LABS: Glucose, Urine Negative (Negative); Protein,Urine Dip Negative (Negative); WBC 0-2 /HPF (0-5)
== END 2025-04-08 17:50 | disposition home or self-care (01) ==
LOC: ED 15:49
DX: G40.909 Epilepsy, unspecified, not intractable, without status epilepticus (principal)

== ENCOUNTER 2025-04-11 16:01 | Emergency (ER) | payer OTHER ==
--- NOTE | 2025-04-11 16:08 | ERPHSYRPT ---
- History of Present Illness Time Seen by Provider: 04/11/25 16:08 Source: patient, EMS Exam Limitations: no limitations Physician History: This is a 39-year-old white female patient who presents to the emergency department having had 3-4 episodes of seizure-like activity that occurred today. She is brought in by the paramedics. Patient's primary care provider Dr. Cee. She does not have an appointment to see a neurologist until June 2025. Patient denies head injury. She denies change in any medication. In fact, she is not on any medications. Patient has allergies to Klonopin and Keppra and Ativan. Patient was seen here on 04/08/2025 and had a full workup except for no CT scan of the head. She has had several CT scans of the head without contrast and all have been negative. Patient has a history of arrhythmia, anxiety, depression, and a questionable history of CVA. Timing/Duration: today Severity: mild Character of Deficits: none Deficits: no difficulties Baseline/Normal Cognition: alert oriented x 3 Current Cognition: alert oriented x 3 Baseline Gait: walks w/o assistance Associated Symptoms: denies symptoms (Symptoms have completely resolved), other (Patient did not soil herself with urine or stool), No nausea, No vomiting, No vision changes, No chest pain Allergies/Adverse Reactions: ceftriaxone [From Rocephin] Allergy (Severe, Verified 04/11/25 16:06) hives and swelling hydromorphone HCl [From Dilaudid] Allergy (Severe, Verified 04/11/25 16:06) Anaphylactic Reaction nitrofurantoin [From Macrobid] Allergy (Severe, Verified 04/11/25 16:06) Swelling azithromycin [From Zithromax] Allergy (Intermediate, Verified 04/11/25 16:06) Hives erythromycin base [Erythromycin Base] Allergy (Mild, Verified 04/11/25 16:06) Tightness of Throat cinnamon Allergy (Verified 04/11/25 16:06) clonazepam [From Klonopin] Allergy (Verified 04/11/25 16:06) Swelling clonidine Allergy (Verified 04/11/25 16:06) Hives prednisone Allergy (Verified 04/11/25 16:06) diphenhydramine [From Benadryl] Adverse Reaction (Intermediate, Verified 04/11/25 16:06) Vomiting lorazepam [From Ativan] Adverse Reaction (Verified 04/08/25 15:58) Swelling of Tongue and Lips morphine Adverse Reaction (Verified 04/08/25 15:58) Hives Home Medications: No Reportable Medications [No Reported Medications] 04/08/25 [History] Hx Tetanus, Diphtheria Vaccination/Date Given: Yes Hx Influenza Vaccination/Date Given: Yes Hx Pneumococcal Vaccination/Date Given: No Travel Risk - International Travel Have you traveled outside of the country in past 3 weeks: No - Emerging Infectious Disease Are you exhibiting symptoms associated with any current EIDs: No - Review of Systems Constitutional: No Symptoms Eyes: No Symptoms Ears, Nose, & Throat: No Symptoms Respiratory: No Symptoms Cardiac: No Symptoms Abdominal/Gastrointestinal: No Symptoms Genitourinary Symptoms: No Symptoms Musculoskeletal: No Symptoms Skin: No Symptoms Neurological: Seizure (Now resolved) Psychological: No Symptoms Endocrine: No Symptoms Hematologic/Lymphatic: No Symptoms Immunological/Allergic: No Symptoms All Other Systems: Reviewed and Negative - Past Medical History Pertinent Past Medical History: Yes Neurological History: No Pertinent History ENT History: No Pertinent History Cardiac History: Arrhythmia, Other Respiratory History: No Pertinent History Endocrine Medical History: No Pertinent History Musculoskeletal History: No Pertinent History GI Medical History: No Pertinent History History: No Pertinent History Psycho-Social History: Anxiety, Depression Female Reproductive Disorders: No Pertinent History Other Medical History: kidney stones; a-fib, lupus - Past Surgical History Past Surgical History: Yes Neuro Surgical History: No Pertinent History Cardiac: No Pertinent History Respiratory: No Pertinent History Gastrointestinal: Appendectomy Genitourinary: No Pertinent History Musculoskeletal: No Pertinent History Female Surgical History: Dilation & Curettage, Section, Tubal Ligation Other Surgical History: ; pt states d/t tumor. Significant Family History: no pertinent family hx - Female History Hx Last Menstrual Period: 10/2012 - Social History Smoking Status: Never smoker How long have you smoked: vape Drug Use: none - Social Determinants of Health Will the patient participate in the screening: Declined to provide - Nursing Vital Signs Nursing Vital Signs: Initial Vital Signs Temperature 98.4 F 04/11/25 16:02 Pulse Rate 94 H 04/11/25 16:02 Respiratory Rate 14 04/11/25 16:02 Blood Pressure 121/80 04/11/25 16:02 O2 Sat by Pulse Oximetry 98 04/11/25 16:02 Pain Scale Pain Intensity 0 - Parker Coma Scale Best Eye Response (Branden): (4) open spontaneously Best Verbal Response (Branden): (5) oriented Best Motor Response (Parker): (6) obeys commands Branden Total: 15 - Physical Exam General Appearance: no apparent distress, alert Eye Exam: bilateral eye: normal inspection, PERRL, EOMI Ears, Nose, Throat Exam: normal ENT inspection, moist mucous membranes Neck Exam: normal inspection, non-tender, supple, full range of motion Respiratory: normal breath sounds, lungs clear, airway intact, No chest tenderness, No respiratory distress Cardiovascular: regular rate/rhythm, normal heart sounds, normal peripheral pulses Gastrointestinal: soft, normal bowel sounds, No tenderness Pelvic Exam: not done Rectal Exam: not done Back Exam: normal inspection, normal range of motion, No CVA tenderness, No vertebral tenderness Extremity Exam: normal inspection, normal range of motion, pelvis stable Mental Status: alert, oriented x 3, 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 Exam: normal hearing, normal speech, PERRL, tongue midline Motor/Sensory: no motor deficit, no sensory deficit, no pronator drift Skin Exam: normal color, warm, dry SpO2 Interpretation: normal O2 Delivery: Room Air - Course Nursing assessment & vital signs reviewed: Yes Ordered Tests: Active Orders 24 hr Category Date Time Status Pantographer STAT Care 04/11/25 16:54 Active EKG-ER Only STAT Care 04/11/25 16:53 Completed IV Insertion STAT Care 04/11/25 16:53 Active Pulse Oximetry (ED) STAT Care 04/11/25 16:53 Active HEAD WITHOUT CONTRAST [CT] Stat Exams 04/11/25 16:23 Completed CBC W DIFF Stat Lab 04/11/25 17:13 Completed CMP Stat Lab 04/11/25 17:13 Completed CULTURE,URINE Stat Lab 04/11/25 16:54 Received HCG QUALITATIVE, SERUM Stat Lab 04/11/25 17:13 Completed POCT GLUCOSE Stat Lab 04/11/25 16:09 Completed UA W/RFX UR CULTURE Stat Lab 04/11/25 16:53 Completed Urine Triage Profile Stat Lab 04/11/25 16:54 Completed Medication Summary Discontinued Medications Generic Name Dose Route Start Last Admin Trade Name Freq PRN Reason Stop Dose Admin Sodium Chloride 1,000 mls @ 999 mls/hr 04/11/25 16:53 04/11/25 17:00 Sodium Chloride 0.9% 1000 Ml IV 04/11/25 17:53 999 mls/hr .Q1H1M STA Administration Sodium Chloride Confirm 04/11/25 16:59 Sodium Chloride 0.9% 1000 Ml Administered 04/11/25 17:00 Dose 1,000 mls @ ud .ROUTE .K-MED ONE Lab/Rad Data: Laboratory Result Diagrams 04/11/25 17:13 04/11/25 17:13 Laboratory Results 04/11/25 04/11/25 04/11/25 Range/Units 17:13 17:13 17:13 WBC 7.6 (3.98-10.04) x10^3/uL RBC 4.52 (3.93-5.22) x10^6/uL Hgb 11.6 (11.2-15.7) g/dL Hct 37.5 (34.1-44.9) % MCV 83.0 (79.4-94.8) fL MCH 25.7 (25.6-32.2) pg MCHC 30.9 L (32.2-35.5) g/dL RDW 16.4 H (11.7-14.4) % Plt Count 338 (182-369) x10^3/uL MPV 9.4 (9.4-12.3) fL Gran % 55.0 (34.0-71.1) % Immature Gran % (Auto) 0.3 (0.001-0.429) % Nucleat RBC Rel Count 0.0 (0.00-0.2) % Eos # (Auto) 0.07 (0.04-0.36) x10^3/uL Immature Gran # (Auto) 0.02 (0.001-0.031) x10^3u/L Absolute Lymphs (auto) 2.86 (1.18-3.74) x10^3/uL Absolute Monos (auto) 0.44 (0.24-0.86) x10^3/uL Absolute Nucleated RBC 0.00 (0.00-0.012) x10^3u/L Lymphocytes % 37.7 (19.3-51.7) % Monocytes % 5.8 (4.7-12.5) % Eosinophils % 0.9 (0.7-5.8) % Basophils % 0.3 (0.1-1.2) % Absolute Granulocytes 4.18 (1.56-6.13) x10^3/uL Basophils # 0.02 (0.01-0.08) x10^3/uL Sodium 137 (135-145) mmol/L Potassium 3.8 (3.5-5.1) mmol/L Chloride 108 H (98-107) mmol/L Carbon Dioxide 19 L (22-30) mmol/L Anion Gap 12.7 (5-15) MEQ/L BUN 8 (7-17) mg/dL Creatinine 0.66 (0.52-1.04) mg/dL Estimated GFR 115.1 ML/MIN Glucose 99 (74-106) mg/dL POC Glucometer (74 to 106) mg/dL Calcium 9.3 (8.4-10.2) mg/dL Total Bilirubin 0.10 L (0.2-1.3) mg/dL AST 23 (14-36) U/L ALT 22 (0-35) U/L Alkaline Phosphatase 87 (38-126) U/L Serum Total Protein 7.6 (6.3-8.2) g/dL Albumin 4.2 (3.5-5.0) g/dL Serum HCG, Qual NEGATIVE (NEGATIVE) Urine Color (Yellow) Urine Appearance (Clear) Urine pH (4.6-8.0) Ur Specific [place] (1.005-1.030) Urine Protein (Negative) Urine Glucose (UA) (Negative) mg/dL Urine Ketones (Negative) Urine Blood (Negative) Urine Nitrite (Negative) Urine Bilirubin (Negative) Urine Urobilinogen (0.2) mg/dL Ur Leukocyte Esterase (Negative) U Hyaline Cast (Auto) (0-2) /LPF Urine Microscopic RBC (0-5) /HPF Urine Microscopic WBC (0-5) /HPF Ur Epithelial Cells (None Seen) /HPF Urine Bacteria (None Seen) /HPF Urine Culture Reflexed (NO) Urine Opiates Level (NEGATIVE) Ur Methadone (NEGATIVE) Urine Barbiturates (NEGATIVE) Ur Phencyclidine (PCP) (NEGATIVE) Urine Amphetamine (NEGATIVE) U Benzodiazepine Level (NEGATIVE) Urine Cocaine (NEGATIVE) Urine Marijuana (THC) (NEGATIVE) 04/11/25 04/11/25 04/11/25 Range/Units 16:54 16:53 16:09 WBC (3.98-10.04) x10^3/uL RBC (3.93-5.22) x10^6/uL Hgb (11.2-15.7) g/dL Hct (34.1-44.9) % MCV (79.4-94.8) fL MCH (25.6-32.2) pg MCHC (32.2-35.5) g/dL RDW (11.7-14.4) % Plt Count (182-369) x10^3/uL MPV (9.4-12.3) fL Gran % (34.0-71.1) % Immature Gran % (Auto) (0.001-0.429) % Nucleat RBC Rel Count (0.00-0.2) % Eos # (Auto) (0.04-0.36) x10^3/uL Immature Gran # (Auto) (0.001-0.031) x10^3u/L Absolute Lymphs (auto) (1.18-3.74) x10^3/uL Absolute Monos (auto) (0.24-0.86) x10^3/uL Absolute Nucleated RBC (0.00-0.012) x10^3u/L Lymphocytes % (19.3-51.7) % Monocytes % (4.7-12.5) % Eosinophils % (0.7-5.8) % Basophils % (0.1-1.2) % Absolute Granulocytes (1.56-6.13) x10^3/uL Basophils # (0.01-0.08) x10^3/uL Sodium (135-145) mmol/L Potassium (3.5-5.1) mmol/L Chloride (98-107) mmol/L Carbon Dioxide (22-30) mmol/L Anion Gap (5-15) MEQ/L BUN (7-17) mg/dL Creatinine (0.52-1.04) mg/dL Estimated GFR ML/MIN Glucose (74-106) mg/dL POC Glucometer 108 H (74 to 106) mg/dL Calcium (8.4-10.2) mg/dL Total Bilirubin (0.2-1.3) mg/dL AST (14-36) U/L ALT (0-35) U/L Alkaline Phosphatase (38-126) U/L Serum Total Protein (6.3-8.2) g/dL Albumin (3.5-5.0) g/dL Serum HCG, Qual (NEGATIVE) Urine Color Yellow (Yellow) Urine Appearance Clear (Clear) Urine pH 8.5 A (4.6-8.0) Ur Specific [place] 1.025 (1.005-1.030) Urine Protein Trace A (Negative) Urine Glucose (UA) Negative (Negative) mg/dL Urine Ketones Negative (Negative) Urine Blood Negative (Negative) Urine Nitrite Negative (Negative) Urine Bilirubin Negative (Negative) Urine Urobilinogen 1.0 A (0.2) mg/dL Ur Leukocyte Esterase Negative (Negative) U Hyaline Cast (Auto) NONE SEEN (0-2) /LPF Urine Microscopic RBC 3-5 (0-5) /HPF Urine Microscopic WBC 0-2 (0-5) /HPF Ur Epithelial Cells Moderate A (None Seen) /HPF Urine Bacteria Moderate A (None Seen) /HPF Urine Culture Reflexed ORDERED SEPARATELY (NO) Urine Opiates Level NEGATIVE (NEGATIVE) Ur Methadone NEGATIVE (NEGATIVE) Urine Barbiturates NEGATIVE (NEGATIVE) Ur Phencyclidine (PCP) NEGATIVE (NEGATIVE) Urine Amphetamine NEGATIVE (NEGATIVE) U Benzodiazepine Level NEGATIVE (NEGATIVE) Urine Cocaine NEGATIVE (NEGATIVE) Urine Marijuana (THC) NEGATIVE (NEGATIVE) - Progress Progress: improved, re-examined Progress Note: 04/11/25 18:03 My medical decision making and the assignment of moderate complexity of this patient's medical issue today is based on review of the patient's past medical history, reviewed patient's medication list, reviewed patient drug allergy list, history present illness and physical findings on examination. The workup in this patient includes CBC, CMP, twelve-lead EKG, CT scan of the head without contrast. Urinalysis, urine drug triage. 04/11/25 18:07 I interpreted the patient's laboratory data results. Based on laboratory data results there are no acute, emergent medical issues. The CT scan of the head without contrast was interpreted by the radiologist and there was no evidence of any acute findings on this noncontrasted exam. I did mention to the patient that she has had several negative CT scans of the head in the last year. Counseled pt/family regarding: lab results, diagnosis, need for follow-up, rad results Medical Desision Making - Independent Historian Additional History obtained from: Loan Administrator/EMT - Diagnostic Testing Diagnostic test were ordered, analyzed, and reviewed by me: Yes Radiological Interpretation: Reviewed by me, Teleradiologist Report - Risk of complications Low Risk: Low risk of morbidity from additional dx testing or treatment - Departure Departure Disposition: Home Clinical Impression: Breakthrough seizure Condition: Stable Critical Care Time: No Referrals: CRISTOBAL CEE MD [Primary Care Provider, [facility]] - Follow up/PCP as directed Additional Instructions: Take all your medications as prescribed. Call your primary care provider on 04/14/2025, to make arrangements for follow-up appointment and to contact neurologist to move your appointment to an earlier date.
[2025-04-11 16:17] VITALS: TEMP 98.4
--- NOTE | 2025-04-11 17:23 | XRAY ---
Indication: Seizure. Multiple contiguous axial images obtained through the head without contrast. Comparison: March 16, 2020, September 15, 2022, November 28, 2023, and December 04, 2024. Again normal appearing brain parenchyma, ventricles, and bony calvarium. Visualized paranasal sinuses and mastoid air cells are clear. Impression: Continued chronic normal CT head without contrast exam.
[2025-04-11 17:24] LABS: BASOPHIL % 0.3 % (0.1-1.2); Basophil (Absolute #) 0.02 x10^3/uL (0.01-0.08); Eosinophil (Absolute #) 0.07 x10^3/uL (0.04-0.36); Hematocrit 37.5 % (34.1-44.9); Hemoglobin 11.6 g/dL (11.2-15.7); IMMATURE GRAN # 0.02 x10^3u/L (0.001-0.031); IMMATURE GRAN % 0.3 % (0.001-0.429); Lymphocyte (Absolute #) 2.86 x10^3/uL (1.18-3.74); Mean Corpuscular Hemoglobin 25.7 pg (25.6-32.2); Mean Corpuscular Hgb Concent. 30.9 g/dL (32.2-35.5); Monocyte (Absolute #) 0.44 x10^3/uL (0.24-0.86); NUCLEATED RBC # 0.00 x10^3u/L (0.00-0.012); NUCLEATED RBC % 0.0 % (0.00-0.2); Platelet Count 338 x10^3/uL (182-369); Red Blood Count 4.52 x10^6/uL (3.93-5.22); White Blood Count 7.6 x10^3/uL (3.98-10.04)
[2025-04-11 17:32] LABS: Glucose, Urine Negative (Negative); Protein,Urine Dip Trace (Negative); WBC 0-2 /HPF (0-5)
[2025-04-11 17:38] LABS: HCG SERUM TEST NEGATIVE (NEGATIVE)
[2025-04-11 17:44] LABS: Calcium 9.3 mg/dL (8.4-10.2); Carbon Dioxide 19.0 mmol/L (22-30); Creatinine 1 0.66 mg/dL (0.52-1.04); EST GLOMERULAR FILTRATION RATE 115.1 ML/MIN; Glucose 99.0 mg/dL (74-106); Potassium 3.8 mmol/L (3.5-5.1); SGOT/AST 23.0 U/L (14-36); SGPT/ALT 22.0 U/L (0-35); Total Protein 7.6 g/dL (6.3-8.2)
[2025-04-11 17:46] LABS: Amphetamine,Urine NEGATIVE (NEGATIVE); Barbiturate,Urine NEGATIVE (NEGATIVE); Benzodiazepine,Urine NEGATIVE (NEGATIVE); Cocaine,Urine NEGATIVE (NEGATIVE); Methadone,Urine NEGATIVE (NEGATIVE); Opiate,Urine NEGATIVE (NEGATIVE); PCP,Urine NEGATIVE (NEGATIVE); THC,Urine NEGATIVE (NEGATIVE)
[2025-04-11 18:16] VITALS: BP 137/90; PULSE 89; RESP 16; O2SAT 98
== END 2025-04-11 18:19 | disposition home or self-care (01) ==
LOC: ED 16:01
DX: G40.909 Epilepsy, unspecified, not intractable, without status epilepticus (principal)

== ENCOUNTER 2025-05-05 16:35 | Emergency (ER) | payer OTHER ==
[2025-05-05 16:44] VITALS: TEMP 97.7
--- NOTE | 2025-05-05 17:03 | ERPHSYRPT ---
- History of Present Illness Time Seen by Provider: 05/05/25 16:36 Source: patient, old records, other Exam Limitations: no limitations Patient Subjective Stated Complaint: Pt states. I have been sick for 12 days. I have been on steroids and antibiotics and nothing is helping." Triage Nursing Assessment: Pt presented alert and oriented X 3, skin pwd. Pt ambulates with an upright steady gait, able to speak in clear full sentences.Pt resting comfortably on the bed. pt in no apaperent distress at this time. Physician History: Patient is here for generalized malaise, and feeling ill for 12 days. Patient initially diagnosed with a bilateral ear infection. She has been on antibiotics, steroids for this. Patient states that she initially felt better. However presented to urgent care today complaining of continued symptoms. In triage she is alert and orient x 3 she is able to ambulate, speaking in full sentences she is in no apparent distress. She is 97% on room air. She is mildly tachycardic at 101, 102 in the room. Patient is taking PO well. Same number of urinations and defecations. The patient has no signs of altered mental status, nuchal rigidity, signs of meningitis. The patient is up-to-date on all vaccinations. She has no fever here, no hypotension. At urgent care, she did have a COVID, RSV, flu swab. This was negative. She also had a strep test done this was also negative. Allergies/Adverse Reactions: ceftriaxone [From Rocephin] Allergy (Severe, Verified 04/11/25 16:06) hives and swelling hydromorphone HCl [From Dilaudid] Allergy (Severe, Verified 04/11/25 16:06) Anaphylactic Reaction nitrofurantoin [From Macrobid] Allergy (Severe, Verified 04/11/25 16:06) Swelling azithromycin [From Zithromax] Allergy (Intermediate, Verified 04/11/25 16:06) Hives erythromycin base [Erythromycin Base] Allergy (Mild, Verified 04/11/25 16:06) Tightness of Throat cinnamon Allergy (Verified 04/11/25 16:06) clonazepam [From Klonopin] Allergy (Verified 04/11/25 16:06) Swelling clonidine Allergy (Verified 04/11/25 16:06) Hives prednisone Allergy (Verified 04/11/25 16:06) diphenhydramine [From Benadryl] Adverse Reaction (Intermediate, Verified 04/11/25 16:06) Vomiting lorazepam [From Ativan] Adverse Reaction (Verified 04/08/25 15:58) Swelling of Tongue and Lips morphine Adverse Reaction (Verified 04/08/25 15:58) Hives Hx Tetanus, Diphtheria Vaccination/Date Given: Yes Hx Influenza Vaccination/Date Given: Yes Hx Pneumococcal Vaccination/Date Given: No Immunizations Up to Date: No Travel Risk - International Travel Have you traveled outside of the country in past 3 weeks: No - Emerging Infectious Disease Are you exhibiting symptoms associated with any current EIDs: Yes Symptoms: Cough: New Onset, Diarrhea, Fever - Past Medical History Pertinent Past Medical History: Yes Neurological History: No Pertinent History ENT History: No Pertinent History Cardiac History: Arrhythmia, Other Respiratory History: No Pertinent History Endocrine Medical History: No Pertinent History Musculoskeletal History: No Pertinent History GI Medical History: No Pertinent History History: No Pertinent History Psycho-Social History: Anxiety, Depression Female Reproductive Disorders: No Pertinent History Other Medical History: kidney stones; a-fib, lupus - Past Surgical History Past Surgical History: Yes Neuro Surgical History: No Pertinent History Cardiac: No Pertinent History Respiratory: No Pertinent History Gastrointestinal: Appendectomy Genitourinary: No Pertinent History Musculoskeletal: No Pertinent History Female Surgical History: Dilation & Curettage, Section, Tubal Ligation Other Surgical History: ; pt states d/t tumor. Significant Family History: no pertinent family hx - Female History Hx Last Menstrual Period: 04/18/2025 Hx Now: No - Social History Smoking Status: Never smoker How long have you smoked: vape Exposure to second hand smoke: Yes Drug Use: none - Social Determinants of Health Will the patient participate in the screening: Declined to provide - Nursing Vital Signs Nursing Vital Signs: Initial Vital Signs Temperature 97.7 F 05/05/25 16:39 Pulse Rate 111 H 05/05/25 16:39 Respiratory Rate 20 05/05/25 16:39 Blood Pressure 113/80 05/05/25 16:39 O2 Sat by Pulse Oximetry 97 05/05/25 16:39 Pain Scale Pain Intensity 4 - Physical Exam SpO2 Interpretation: normal SpO2: 97 Comments: 05/05/25 17:28 Review of Systems Constitutional: Negative for fever. HENT: Negative for congestion. Respiratory: Negative for shortness of breath. Cardiovascular: Negative for chest pain. Gastrointestinal: Negative for abdominal pain. Genitourinary: Negative for dysuria. Musculoskeletal: Negative for back pain. Skin: Negative for rash. Neurological: Negative for headaches. Psychiatric/Behavioral: Negative for behavioral problems. All other systems reviewed and are negative. Physical Exam Vitals signs and nursing note reviewed. Constitutional: Appearance: Patient is well-developed. HENT: Head: Normocephalic and atraumatic. Eyes: Conjunctiva/sclera: Conjunctivae normal. Neck: Musculoskeletal: Normal range of motion. Trachea: No tracheal deviation. Cardiovascular: Rate and Rhythm: Normal rate. Heart sounds normal. Pulmonary: Effort: Pulmonary effort is normal. No respiratory distress. Abdominal: Palpations: Abdomen is soft. Musculoskeletal: General: No deformity. Skin: General: Skin is warm and dry. Neurological/ Psychiatric: Mental Status: Mental status, behavior, interaction with environment is appropriate for patient's age and condition No trismus, able to fully extend neck, normal range of motion of neck without pain. Uvula is midline, no swelling of the mouth, noraml oropharynx. No exudate, no signs of meningitis, no floor of mouth swelling, no hot potato voice on exam. No buccal swelling, no gum bleeding, no signs of tooth abscess/infection. TMs clear bilaterally - Course Nursing assessment & vital signs reviewed: Yes EKG Interpreted by Me: Sinus Rhythm (EKG my interpretation at 1712 demonstrates sinus tachycardia, rate of 101, RI interval 179, QRS 102, QTc is 452, no STEMI or other ST changes) Ordered Tests: Active Orders 24 hr Category Date Time Status EKG-ER Only STAT Care 05/05/25 16:58 Completed IV Insertion STAT Care 05/05/25 16:58 Active CHEST 2 VIEWS (PA AND LAT) Stat Exams 05/05/25 16:59 Completed BMP Stat Lab 05/05/25 17:00 Completed CBC W DIFF Stat Lab 05/05/25 17:00 Completed Respiratory Therapy Assessment DAILY RT 05/05/25 17:07 Active Medication Summary Generic Name Dose Route Start Last Admin Trade Name Freq PRN Reason Stop Dose Admin Sodium Chloride 1,000 mls @ 999 mls/hr 05/05/25 16:58 05/05/25 17:11 Sodium Chloride 0.9% 1000 Ml IV 05/05/25 17:58 999 mls/hr .Q1H1M STA Administration Discontinued Medications Generic Name Dose Route Start Last Admin Trade Name [place]ata PRN Reason Stop Dose Admin Albuterol/Ipratropium 3 ml 05/05/25 17:01 05/05/25 17:07 Ipratropium/Albuterol Sulfate 3 Ml Ampul.Neb IH 05/05/25 17:02 3 ml STAT ONE Administration Albuterol/Ipratropium Confirm 05/05/25 17:04 Ipratropium/Albuterol Sulfate 3 Ml Ampul.Neb Administered 05/05/25 17:05 Dose 3 ml IH .STK-MED ONE Sodium Chloride Confirm 05/05/25 17:09 Sodium Chloride 0.9% 1000 Ml Administered 05/05/25 17:10 Dose 1,000 mls @ ud .ROUTE .STK-MED ONE Ondansetron HCl 8 mg 05/05/25 16:58 05/05/25 17:12 Ondansetron Hcl 4 Mg/2 Ml Vial IV 05/05/25 16:59 8 mg STAT ONE Administration Ondansetron HCl Confirm 05/05/25 17:09 Ondansetron Hcl 4 Mg/2 Ml Vial Administered 05/05/25 17:10 Dose 4 mg .ROUTE .STK-MED ONE Ondansetron HCl Confirm 05/05/25 17:12 Ondansetron Hcl 4 Mg/2 Ml Vial Administered 05/05/25 17:13 Dose 4 mg .ROUTE .STK-MED ONE Lab/Rad Data: Laboratory Result Diagrams 05/05/25 17:00 05/05/25 17:00 Laboratory Results 05/05/25 05/05/25 Range/Units 17:00 17:00 WBC 11.4 H (3.98-10.04) x10^3/uL RBC 4.88 (3.93-5.22) x10^6/uL Hgb 12.5 (11.2-15.7) g/dL Hct 41.8 (34.1-44.9) % MCV 85.7 (79.4-94.8) fL MCH 25.6 (25.6-32.2) pg MCHC 29.9 L (32.2-35.5) g/dL RDW 16.3 H (11.7-14.4) % Plt Count 355 (182-369) x10^3/uL MPV 10.1 (9.4-12.3) fL Gran % 59.6 (34.0-71.1) % Immature Gran % (Auto) 0.4 (0.001-0.429) % Nucleat RBC Rel Count 0.0 (0.00-0.2) % Eos # (Auto) 0.15 (0.04-0.36) x10^3/uL Immature Gran # (Auto) 0.05 H (0.001-0.031) x10^3u/L Absolute Lymphs (auto) 3.66 (1.18-3.74) x10^3/uL Absolute Monos (auto) 0.68 (0.24-0.86) x10^3/uL Absolute Nucleated RBC 0.00 (0.00-0.012) x10^3u/L Lymphocytes % 32.2 (19.3-51.7) % Monocytes % 6.0 (4.7-12.5) % Eosinophils % 1.3 (0.7-5.8) % Basophils % 0.5 (0.1-1.2) % Absolute Granulocytes 6.78 H (1.56-6.13) x10^3/uL Basophils # 0.06 (0.01-0.08) x10^3/uL Sodium 136 (135-145) mmol/L Potassium 3.6 (3.5-5.1) mmol/L Chloride 106 (98-107) mmol/L Carbon Dioxide 16 L* (22-30) mmol/L Anion Gap 18.3 H (5-15) MEQ/L BUN 10 (7-17) mg/dL Creatinine 0.57 (0.52-1.04) mg/dL Estimated GFR 119.2 ML/MIN Glucose 118 H (74-106) mg/dL Calcium 9.4 (8.4-10.2) mg/dL - Progress Progress: improved Progress Note: 05/05/25 17:28 Differential diagnosis includes pneumonia, dehydration, electrolyte abnormality, other infection, TMs clear bilaterally on my physical exam, does not appear to be otitis media. Will obtain chest x-ray, IV placement, fluids, breathing treatment, basic labs. EKG as above without any ST changes. 05/05/25 17:54 Patient feels much improved with breathing treatment and fluids. Heart rate has normalized. I did review all radiology images. See radiologist official read for full details. I did discuss results and all incidental findings with patient/family. They state their understanding and need for appropriate follow- up. No pneumonia on x-ray. Patient feeling better as above. Likely viral bronchitis. Recommended continue conservative management at home. She should push oral fluids, hydration, [id number] cough and fever medication as needed. She may return here sooner for any new or changing symptoms. Otherwise follow-up with PCP for reexam in 2 to 3 days. Counseled pt/family regarding: lab results, diagnosis, need for follow-up, rad results - Departure Departure Disposition: Home Clinical Impression: Acute bronchitis Condition: Stable Critical Care Time: No Referrals: CRISTOBAL STONE MD [Primary Care Provider, [facility]] - Follow up/PCP as directed
[2025-05-05] MEDS ORDERED: DUONEB 0.5-3 MG/3 ml Neb IH ONE (17:04)
[2025-05-05 17:06] LABS: BASOPHIL % 0.5 % (0.1-1.2); Basophil (Absolute #) 0.06 x10^3/uL (0.01-0.08); Eosinophil (Absolute #) 0.15 x10^3/uL (0.04-0.36); Hematocrit 41.8 % (34.1-44.9); Hemoglobin 12.5 g/dL (11.2-15.7); IMMATURE GRAN # 0.05 x10^3u/L (0.001-0.031); IMMATURE GRAN % 0.4 % (0.001-0.429); Lymphocyte (Absolute #) 3.66 x10^3/uL (1.18-3.74); Mean Corpuscular Hemoglobin 25.6 pg (25.6-32.2); Mean Corpuscular Hgb Concent. 29.9 g/dL (32.2-35.5); Monocyte (Absolute #) 0.68 x10^3/uL (0.24-0.86); NUCLEATED RBC # 0.00 x10^3u/L (0.00-0.012); NUCLEATED RBC % 0.0 % (0.00-0.2); Platelet Count 355 x10^3/uL (182-369); Red Blood Count 4.88 x10^6/uL (3.93-5.22); White Blood Count 11.4 x10^3/uL (3.98-10.04)
[2025-05-05] MEDS: DUONEB 0.5-3 MG/3 ml Neb IH ONE (17:07)
[2025-05-05] MEDS ORDERED: Zofran 4 MG/2 ML VIAL ONE ×2 (17:09→17:12)
[2025-05-05 17:12] LABS: Calcium 9.4 mg/dL (8.4-10.2); Creatinine 1 0.57 mg/dL (0.52-1.04); EST GLOMERULAR FILTRATION RATE 119.2 ML/MIN; Glucose 118.0 mg/dL (74-106); Potassium 3.6 mmol/L (3.5-5.1)
[2025-05-05] MEDS: Zofran 4 MG/2 ML VIAL IV ONE (17:12)
[2025-05-05 17:19] LABS: Carbon Dioxide 16.0 mmol/L (22-30)
[2025-05-05 17:30] VITALS: O2SAT 97
[2025-05-05 17:40] VITALS: BP 123/85; PULSE 92; RESP 18
--- NOTE | 2025-05-05 17:50 | XRAY ---
Indication: Pneumonia. Comparison: February 20, 2025 PA/lateral chest again demonstrates normal heart, lungs, and bony thorax.
== END 2025-05-05 18:00 | disposition home or self-care (01) ==
LOC: ED 16:35
DX: J20.9 Acute bronchitis, unspecified (principal); R53.81 Other malaise